=== PATIENT | female | born 1965 | race Caucasian/White ===

== ENCOUNTER → 2017-10-17 10:14 | Outpatient (CLI) | payer OTHER, SELFPAY ==
--- NOTE | 2017-10-17 10:18 | US_ITS ---
STUDY: THYROID ULTRASOUND REASON FOR EXAM: Female, 52 years old. Follow-up nodules. TECHNIQUE: Ultrasound evaluation of the thyroid was performed with real-time and static acharya-scale imaging. COMPARISON: 08/31/2016. FINDINGS: RIGHT LOBE: The right lobe of the thyroid gland measures 5.5 x 2.8 x 2.3 cm. There is a heterogeneous echotexture. There are several poorly defined nodules. Largest 2 measure 1.7 and 2.3 cm. These are relatively stable. LEFT LOBE: The left lobe of the thyroid gland measures 5.0 x 2.0 x 1.6 cm. There is a heterogeneous echotexture. There are several poorly defined nodules. Largest 2 measure 1.1 cm each. These are relatively stable. ISTHMUS: The isthmus measures 4 mm . The regional lymph nodes are normal. US/Thyroid IMPRESSION: Stable probable multinodular goiter. Electronically Signed: Shine Sawyer MD at 17:01 EST , Service support ,
== END ==
PROVIDERS: Family Provider Internal Medicine; PCP Internal Medicine; Visit Provider Internal Medicine
DX: E04.2 Nontoxic multinodular goiter (principal)
CPT/HCPCS: 76536

== ENCOUNTER → 2018-02-19 06:53 | Outpatient (CLI) | payer OTHER, SELFPAY ==
--- NOTE | 2018-02-19 06:56 | CT_ITS ---
STUDY: CT ABDOMEN AND PELVIS WITH CONTRAST REASON FOR EXAM: Female, 52 years old. Few month history of left lower quadrant pain with diarrhea and constipation. RADIATION DOSAGE (If Supplied By Facility): CTDIvol = ( 20.04 ) mGy, DLP = ( 1315.22 ) mGycm TECHNIQUE: Transaxial images were obtained from the dome of the diaphragm to the symphysis pubis with oral contrast. 100ml ml of Isovue 300 contrast was administered. Sagittal and coronal images were reconstructed. Individualized dose optimization techniques were used for this CT. COMPARISON: Comparison is made with prior study dated November 30, 2013. FINDINGS: The visualized lung bases are unremarkable. The visualized portions of the heart are within normal limits. There is decreased attenuation of the liver consistent with steatosis. The patient is status post cholecystectomy. Normal spleen. Normal pancreas. Normal bilateral adrenal glands. Normal right kidney. Stable deformity of the posterior medial aspect of the upper pole of the left kidney in keeping with history of prior localized resection. Normal visualized stomach. Normal small intestine. There are multiple colonic diverticula consistent with diverticulosis. The appendix is visualized and appears normal. Normal abdominal aorta. Normal inferior vena cava. There is borderline retroperitoneal lymphadenopathy with enlarged nodes no greater than 10mm in the short axis diameter. Normal urinary bladder. There is absence of the uterus consistent with a prior hysterectomy. Normal abdominal wall. Normal osseous structures. CT/Abdomen/Pelvis WITH Contrast IMPRESSION: Fatty infiltration of the liver. No acute abnormality is seen. Electronically Signed: Jono Dumont MD at 10:35 EDT Tel [phone], Service support ,
== END ==
PROVIDERS: Family Provider Internal Medicine; PCP Internal Medicine; Visit Provider Internal Medicine
DX: R10.32 Left lower quadrant pain (principal)
CPT/HCPCS: 74177; Q9967

== ENCOUNTER → 2018-03-06 14:26 | Outpatient (CLI) | payer OTHER, SELFPAY ==
--- NOTE | 2018-03-06 14:28 | VDLE_ITS ---
Reason For Study: LEG SWELLING RIGHT LEFT GSV is normal. CFV is compressible, spontaneous, phasic, CFV is compressible, spontaneous, phasic, competent, and demonstrates normal competent and demonstrates normal augmentation. augmentation. FV is compressible, spontaneous, phasic, competent and demonstrates normal augmentation. POP V is compressible, spontaneous, phasic, competent and demonstrates normal augmentation. T/P Trunk is compressible. PTV is compressible. RT PerV is compressible. Procedure Exam performed in department. A preliminary report was called and/or faxed to Dr. Morales. Interpretation Summary Deep veins of the right lower extremity are patent and compressible segmentally. There is no evidence of right lower extremity deep vein thrombosis. Valvular competence appears intact within the proximal deep venous system on the right . The right greater saphenous vein appears patent and compressible segmentally. Ordering Physician: Marcelle Morales Referring Physician: Marcelle Morales Performed By: Padmini Jasso RVT
== END ==
PROVIDERS: Family Provider Internal Medicine; PCP Internal Medicine; Visit Provider Internal Medicine
DX: M79.9 Soft tissue disorder, unspecified (principal)
CPT/HCPCS: 93971

== ENCOUNTER → 2018-03-10 08:01 | Outpatient (CLI) | payer OTHER, SELFPAY ==
--- NOTE | 2018-03-10 08:11 | MRI_ITS ---
STUDY: MRI LOWER EXTREMITY RIGHT TIBIA/FIBULA WITH AND WITHOUT CONTRAST REASON FOR EXAM: Female, 52 years old. Mass TECHNIQUE: Standardized fat and water weighted pulse sequences were obtained in all 3 orthogonal planes, post contrast administration. 10 ml of Gadavist contrast material was administered intravenously for the contrast portion of the examination. COMPARISON: None. FINDINGS: Normal tibia and fibula, without a periosteal, cortical or cancellous marrow abnormality. Normal anterior, lateral, and posterior calf compartments, with normal muscles, crural fascia and intermuscular septa. Normal subcutis adipose space, without subcutis adipose space edema. There is no solid, cystic or lipomatous mass lesion of the subcutis adipose space. There is no abnormal contrast enhancement. MRI/Lower Ext No Joint W/WO Cont IMPRESSION: Intact right calf No soft tissue mass. No abnormal enhancement Electronically Signed: Ge Moffett MD at 9:35 EDT Tel , Service support ,
== END ==
PROVIDERS: Family Provider Internal Medicine; PCP Internal Medicine; Visit Provider Internal Medicine
DX: M79.9 Soft tissue disorder, unspecified (principal)
CPT/HCPCS: 73720; A9585

== ENCOUNTER → 2018-03-28 08:00 | Outpatient (CLI) | payer OTHER, SELFPAY ==
--- NOTE | 2018-03-28 10:21 | NEURO ---
NCS and/or EMG Patient Report Ordering Doctor: Blayne Welsh DATE OF SERVICE: 03/28/18 Is a bilateral lower extremity nerve conduction study and EMG of the right lower extremity performed on this 52-year-old female with paresthesias in her feet bilaterally worse on the right side. She says she is prediabetic with a hemoglobin A1c of 5.1. Bilateral lower extremity sensory and motor nerve conduction studies are performed. The sural sensory responses are intact. Bilateral common peroneal motor distal latencies amplitudes and conduction velocities are intact and the tibial motor distal latencies amplitudes and conduction velocities are intact bilaterally. The tibial and common peroneal F-wave latencies are preserved bilaterally however the tibial H reflex responses reduced. Right lower extremity needle electromyography is performed. Muscles evaluated included the extensor digitorum brevis, abductor halitosis, medial gastrocnemius, anterior tibialis, vastus medialis and vastus lateralis. All muscles demonstrated normal insertional activity with absence of pathologic spontaneous activity. Motor unit potential recruitment pattern and amplitude was normal in all muscles tested. Impression: This is a normal EMG and nerve conduction study of the lower extremities however there is mildly reduced H reflex amplitudes in conjunction with the patient's symptoms this likely represents small fiber neuropathy.
--- NOTE | 2018-03-28 10:25 | NEURO_ITS ---
NCS and/or EMG Patient Report Ordering Doctor: Blayne Welsh DATE OF SERVICE: 03/28/18 Is a bilateral lower extremity nerve conduction study and EMG of the right lower extremity performed on this 52-year-old female with paresthesias in her feet bilaterally worse on the right side. She says she is prediabetic with a hemoglobin A1c of 5.1. Bilateral lower extremity sensory and motor nerve conduction studies are performed. The sural sensory responses are intact. Bilateral common peroneal motor distal latencies amplitudes and conduction velocities are intact and the tibial motor distal latencies amplitudes and conduction velocities are intact bilaterally. The tibial and common peroneal F-wave latencies are preserved bilaterally however the tibial H reflex responses reduced. Right lower extremity needle electromyography is performed. Muscles evaluated included the extensor digitorum brevis, abductor halitosis, medial gastrocnemius , anterior tibialis, vastus medialis and vastus lateralis. All muscles demonstrated normal insertional activity with absence of pathologic spontaneous activity. Motor unit potential recruitment pattern and amplitude was normal in all muscles tested. Impression: This is a normal EMG and nerve conduction study of the lower extremities however there is mildly reduced H reflex amplitudes in conjunction with the patient's symptoms this likely represents small fiber neuropathy.
== END ==
PROVIDERS: Family Provider Internal Medicine; PCP Internal Medicine; Visit Provider Podiatrist
DX: G62.9 Polyneuropathy, unspecified (principal)
CPT/HCPCS: 95886; 95910

== ENCOUNTER → 2018-08-10 16:46 | Outpatient (CLI) | payer OTHER, SELFPAY ==
--- NOTE | 2018-08-10 16:50 | CT_ITS ---
STUDY: CT ABDOMEN AND PELVIS WITHOUT CONTRAST REASON FOR EXAM: Female, 53 years old. Flank pain, left partial nephrectomy, hysterectomy, oophorectomy, cholecystectomy RADIATION DOSAGE (If Supplied By Facility): CTDIvol = ( 12.08 ) mGy, DLP = ( 615.71 ) mGycm TECHNIQUE: Transaxial images were obtained from the dome of the diaphragm to the symphysis pubis without oral contrast, and without intravenous contrast. Sagittal and coronal images were reconstructed. Individualized dose optimization techniques were used for this CT. COMPARISON: CT abdomen and pelvis 02/19/2018 FINDINGS: Body wall soft tissues: No acute process. Osseous structures: No acute process. Inferior chest: No acute process. Hepatobiliary: Normal. Pancreas: No acute process. Spleen: Normal. Adrenal glands: Normal. Urogenital: There is a tiny focus of cortical scar at the posterior margin of the mid polar left kidney. The kidneys are otherwise normal. There is very slight ectasia of the left renal collecting system, slight induration along the bradford of the proximal to mid left ureter. There is a tiny calculus within the distal 3rd of the left ureter measuring approximately 3 mm. Series 2 image 126. Right renal collecting system and ureter normal. Uterus and ovaries absent. No adnexal mass or cyst or cul-de-sac free fluid. Pelvic floor and sidewalls and retroperitoneum: No mass or adenopathy. Vasculature: No acute process. Stomach: No acute process. Small bowel and mesentery: No acute process. Large bowel: Normal appendix. Unremarkable large bowel and rectum. Free fluid or free air: None. CT/Abdomen/Pelvis without Cont IMPRESSION: Acute passage of 3 mm calculus, within the distal 3rd of the left ureter, minimal hydronephrosis. No retained calculi in the kidneys. Electronically Signed: Frank Petty MD at 17:39 EST Tel , Service support ,
== END ==
PROVIDERS: Family Provider Internal Medicine; PCP Internal Medicine; Referring Provider Internal Medicine; Visit Provider Internal Medicine
DX: R10.9 Unspecified abdominal pain (principal)
CPT/HCPCS: 74176

== ENCOUNTER → 2018-08-29 14:59 | Outpatient (CLI) | payer OTHER, SELFPAY ==
--- NOTE | 2018-08-29 15:10 | RAD_ITS ---
STUDY: X-RAY - LUMBAR SPINE REASON FOR EXAM: Female, 53 years old. lumbago with sciatica, right side, also pain in right foot TECHNIQUE: 7 view(s) of the lumbar spine were obtained. COMPARISON: None FINDINGS: Normal lumbar lordosis. There is no demonstrated spondylolisthesis There is multilevel endplate spondylosis of the lumbar vertebrae. There is multi-level degenerative disc disease with multi-level disc space narrowing. The soft tissue structures are unremarkable. RAD/L/S Spine Comp/w Bending Views IMPRESSION: Mild degenerative changes of the spine. Electronically Signed: Aleksandr Delgadillo MD at 8:25 EST Tel , Service support ,
== END ==
PROVIDERS: Family Provider Internal Medicine; PCP Internal Medicine; Referring Provider Psychiatry & Neurology Neurology; Visit Provider Psychiatry & Neurology Neurology
DX: M54.41 Lumbago with sciatica, right side (principal)
CPT/HCPCS: 72114

== ENCOUNTER → 2018-09-06 13:21 | Outpatient (CLI) | payer SELFPAY ==
--- NOTE | 2018-09-06 13:26 | CT_ITS ---
STUDY: CT CHEST WITHOUT CONTRAST REASON FOR EXAM: Female, 53 years old. Hyperlipidemia. Calcium scoring examination. This is a radiological over read examination. RADIATION DOSAGE (If Supplied By Facility): CTDIvol = ( 12.19 ) mGy, DLP = ( 268.17 ) mGycm TECHNIQUE: Transaxial imaging was performed without the administration of intravenous contrast material. Individualized dose optimization techniques were used for this CT. COMPARISON: Comparison is made with prior examination dated November 10, 2015. FINDINGS: Small bilateral axillary lymph nodes. Minimal increased markings at the lung bases suggestive of dependent basilar atelectasis. There is a 3.2 mm noncalcified nodule in the superior medial segment of the right lower lobe as seen on axial image #15. This is unchanged from prior examination. There is no demonstrated pleural abnormality. Normal heart and pericardium. Normal mediastinum. Normal hilar regions. Normal unenhanced pulmonary arteries. Normal aorta arch and descending thoracic aorta. There are degenerative changes of the thoracic spine. There is no demonstrated abnormality of the visualized upper abdomen. CT/Limited Chest CT w/CCTA IMPRESSION: No acute abnormality is seen. Electronically Signed: Jono Dumont MD at 13:06 EST Tel [phone], Service support ,
[2018-09-06 13:38] VITALS: BP 97/52; PULSE 45; RESP 18; BMI 30.2
--- NOTE | 2018-09-06 17:08 | CA.SCORE ---
Calcium Scoring Date of Study:: 09/06/18 Coronary Calcium Scoring: Coronary calcium scoring. High-resolution computed tomographic imaging of the chest was performed on 09/06/2018 with particular attention paid to the coronary arteries. Images from the examination were analyzed for the presence and extent of coronary artery calcification using the coronary calcium quantification software. The patient tolerated the procedure well and there were no complications. The results of the coronary calcification analysis are provided below. Coronary artery score. Left main score 0. Left anterior descending artery score 0. Left circumflex artery score 0. Right coronary artery score 0. Total Agagston score 0. Based on the above calcium scoring there is no identifiable atherosclerotic plaque noted and there is very low cardiovascular disease risk suggested.
--- OUTSIDE RECORDS SUMMARY | 2018-11-11 07:37 | XMS RPT_ITS | Continuity of Care Document ---
:1965 Author Organization [facility] Address [address] [facility] [address] [place] [address] Phone Care Team Providers Name Role Phone Marcelle Daley DO Unavailable Dr. Blayne Welsh Unavailable Devorah ALFARO MD , Richar Cruz Unavailable Dr. Alannah Marina Unavailable Brittany Hicks Unavailable Fuentes Del Toro MD Unavailable Dr. Harjinder Cifuentes Unavailable Dr. Mike Borrego MD Unavailable Anderson DÍAZ, Kavitha Rush Unavailable Rafal Yun MD Unavailable Brian Cain Unavailable Sara Henry Unavailable Unavailable Melania Salcedo Unavailable Unavailable Marta Metcalf Unavailable Unavailable Unavailable Unavailable Problems Name Dates Details Abdominal pain (R10.9, 789.00) Status: Active Abdominal pain, acute, right upper quadrant (R10.11, 789.01) Status: Active Abdominal pain, left lower quadrant (R10.32, 789.04) Status: Active Abdominal pain, lower (R10.30, 789.09) Status: Active Abdominal pain, LUQ (R10.12, 789.02) Comments: geoing to see urology and get ct of abd - so she willhave them check this are too but is better Status: Active Abnormal blood chemistry (R79.9, 790.6) Status: Active Abnormal lung sounds (R09.89, 786.7) Status: Active Abnormal renal ultrasound (R93.429, 793.5) Status: Active Acquired polyneuropathy (G62.9, 356.9) Status: Active Acute bronchitis (J20.9, 466.0) Status: Active Acute foot pain, right (M79.671, 729.5) Comments: better Status: Active Acute hyperglycemia (R73.9, 790.29) Status: Active Acute maxillary sinusitis, recurrence not specified (J01.00, 461.0) Status: Active Acute otitis media, right (H66.91, 382.9) Comments: take sudafed watch bp Status: Active Acute pain of left shoulder (M25.512, 719.41) Comments: take celebrex daily and call with update on monday Status: Active ACUTE PHARYNGITIS (462.) (J02.9, 462) Status: Active Acute sinusitis, unspecified (J01.90, 461.9) Status: Active Allergic otitis media of right ear, unspecified chronicity (H65.91, 381.4) Status: Active Blurred vision (H53.8, 368.8) Comments: rt Status: Active BMI 31.0-31.9,adult (Z68.31, V85.31) Status: Active BMI 35.0-35.9,adult (Z68.35, V85.35) Status: Active BMI 38.0-38.9,adult (Z68.38, V85.38) Status: Active BMI 39.0-39.9,adult (Z68.39, V85.39) Status: Active Bronchitis, acute (J20.9, 466.0) Status: Active Candidiasis (B37.9, 112.9) Status: Active Chronic nonintractable headache, unspecified headache type (R51, 784.0) Comments: keep working on gettingbp down- Status: Active Constipation (K59.00, 564.00) Comments: alternating with diarrhea add probiotic Status: Active Cough (R05, 786.2) Status: Active Current nonsmoker (Z78.9, V49.89) Status: Active Deliveries (Parity) Comments: 3. Status: Active Diverticulosis of colon (K57.30, 562.10) Comments: eat more fiber Status: Active Dizziness (R42, 780.4) Status: Active Drug side effects (T88.7XXA, 995.20) Comments: think the dreaming seems associated with gabapentin so will try to lower dose Status: Active Elevated liver enzymes (R74.8, 790.5) Comments: known fatty liver Status: Active Encounter for hepatitis C virus screening test for high risk patient (Z11.59, V73.89) Status: Active Encounter for screening mammogram for breast cancer (Renamed from Encounter for screening mammogram for malignant neoplasm of breast) (Z12.31, V76.12) Comments: after may 26 Status: Active Encounter for screening mammogram for breast cancer (Renamed from Encounter for screening mammogram for malignant neoplasm of breast) (Z12.31, V76.12) Status: Active Eustachian tube dysfunction (Renamed from Dysfunction of eustachian tube) (H69.80, 381.81) Status: Active Eye twitch (G24.5, 333.81) Comments: rt Status: Active Fatigue (R53.83, 780.79) Status: Active Fatty liver (K76.0, 571.8) Status: Active Gallstone (574.20) Status: Active Gastro-esophageal reflux disease without esophagitis (K21.9, 530.81) Comments: chronic stable-continue present regimen Status: Active H/O partial nephrectomy (V15.29) Comments: left 2012 per [facility], non cancer per [facility] per [place] Status: Active Hair loss (L65.9, 704.00) Status: Active Hepatitis B vaccination not up to date (Z78.9, V49.89) Comments: discussed with occupation and fatty liver, needs Hep B immunizedNo immunity to Hep B, was in process of getting series but was interuppted Status: Active Hiatal hernia (K44.9, 553.3) Comments: avoid caffeine Status: Active Hip pain, left (M25.552, 719.45) Status: Active Hypertension, benign (I10, 401.1) Status: Active Impaired Fasting Glucose (R73.01, 790.21) Status: Active Low blood pressure reading (R03.1, 796.3) Comments: due to weight loss - adjust meds Status: Active Lymphadenopathy (R59.1, 785.6) Status: Active Lymphadenopathy, supraclavicular (R59.0, 785.6) Comments: ct negative montior as i dont feel mass now Status: Active [facility] EXAM Comments: ekg showed normal sinus rhythym, horizontal axis, no acute st/t wave changes Status: Active [facility] Wellness Physical Status: Active Mixed hyperlipidemia (E78.2, 272.2) Status: Active Mobley's neuroma, 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, 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) Status: Active Multiple thyroid nodules (E04.2, 241.1) Status: Active Need for prophylactic vaccination and inoculation against influenza (Renamed from Need for immunization against influenza) (Z23, V04.81) Status: Active Need for prophylactic vaccination and inoculation against influenza (Renamed from Need for immunization against influenza) (Z23, V04.81) Status: Active Need for prophylactic vaccination and inoculation against influenza (Renamed from Need for immunization against influenza) (Z23, V04.81) Status: Active NEED FOR PROPHYLACTIC VACCINATION AND INOCULATION AGAINST INFLUENZA (V04.81) (Renamed from Need for prophylactic vaccination and inoculation against influenza) (Z23, V04.81) Status: Active Nonsmoker (Z78.9, V49.89) Status: Active Nonsmoker (Z78.9, V49.89) Status: Active Obesity, unspecified (E66.9, 278.00) Status: Active Otitis media, serous, acute, without rupture, left (H65.02, 381.01) Status: Active Pain of left side of body (R52, 780.96) Comments: slight tenderness llq Status: Active Postmenopausal (Renamed from Postmenopausal status) (Z78.0, V49.81) Comments: without estrogen Status: Active Pregnancies () Comments: 3. 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 Status: Active Right acute serous otitis media, recurrence not specified (H65.01, 381.01) Status: Active Rosacea (L71.9, 695.3) Status: Active SCREENING FOR HYPERLIPIDEMIA (Renamed from Encounter for screening for lipoid disorders) (Z13.220, V77.91) Status: Active Screening for rubella (Z11.59, V73.3) Status: Active Soft tissue mass (M79.9, 729.90) Status: Active Thyromegaly (E04.9, 240.9) Status: Active Unspecified Diagnosis Status: Active Unspecified Diagnosis Status: Active Upper respiratory infection (J06.9, 465.9) Status: Active Upper respiratory infection (J06.9, 465.9) Status: Active UTI (lower urinary tract infection) (N39.0, 599.0) Status: Active Vitamin B12 deficiency (E53.8, 266.2) Comments: chronic stable-continue present regimen Status: Active Vitamin D deficiency (E55.9, 268.9) Comments: chronic stable-continue present regimen Status: Active Wheezing (R06.2, 786.07) Status: Active Medications Name Dates Details ALIGN, 4MG (Oral Capsule) 1 Capsule take 2 hours after one of the antibiotic dose for 0 days Quantity: 30 {Capsule} Refills: 0 Ordered:15-May-2015 Melania Salcedo Start : 21-Apr-2015 Active Allergy Shots 1 injection weekly Active Comments:Dr. Herman STEINERHC, 25MG (Rectal Suppository) 1 Suppository every 8 hours for 0 days Quantity: 1 {Packet(s)} Refills: 1 Ordered:23-Nov-2015 Fast DO, Marcelle AFast DO, Marcelle A Start : 23-Nov-2015 Active CeleBREX 100 MG Oral Capsule 1 (one) Capsule Capsule daily prn for 90 days Quantity: 90 {Capsule} Refills: 1 Ordered:09-Apr-2018 Sara Henry Start : 09-Apr-2018 Active Gabapentin 100 MG Oral Capsule 1 (one) Capsule Capsule tid for 0 days Quantity: 90 {Capsule} Refills: 2 Ordered:20-Jul-2018 Fast DO, Marcelle AFast DO, Marcelle A Start : 20-Jul-2018 Active Losartan Potassium 25 MG Oral Tablet 1 (one) Tablet qd for 90 days Quantity: 90 {Tablet} Refills: 3 Ordered:27-Jul-2018 DO, Marcelle AFast DO, Marcelle A Start : 27-Jul-2018 Active Losartan Potassium 25 MG Oral Tablet 1 (one) Tablet qd for 0 days Quantity: 30 {Tablet} Refills: 0 Ordered:27-Jul-2018 DO, Marcelle AFast DO, Marcelle A Start : 27-Jul-2018 Active Nasacort Allergy 24HR 55 MCG/ACT Nasal Aerosol 1 spray each nostril daily (55 MCG/ACT) Active Nystatin 033744 UNIT/GM External Powder 1 (one) Powder qd for 0 days Quantity: 1 {Bottle} Refills: 1 Ordered:30-Apr-2018 , Marcelle AFast DO, Marcelle A Start : 30-Apr-2018 Active ProAir HFA 108 (90 Base) MCG/ACT Inhalation Aerosol Solution 2 (two) Aerosol Soln puffs q 6 hours prn for 0 days Quantity: 1 {Inhaler} Refills: 1 Ordered:21-Jul-2017 DO, Marcelle AFast DO, Marcelle A Start : 21-Jul-2017 Active Rosuvastatin Calcium 10 MG Oral Tablet 1/2 Tablet qeve for 0 days Quantity: 90 {Tablet} Refills: 3 Ordered:07-May-2018 DO, Marcelle AFast DO, Marcelle A Start : 07-May-2018 Active Rosuvastatin Calcium 10 MG Oral Tablet 1/2 Tablet qeve for 0 days Quantity: 30 {Tablet} Refills: 3 Ordered:07-May-2018 Fast DO, Marcelle AFast DO, Marcelle A Start : 07-May-2018 Active Vitamin D3 2000 UNIT Oral Tablet 2 (two) Tablet Tablet qd for 0 days Quantity: 60 {Tablet} Refills: 3 Ordered:23-Dec-2016 Melania Salcedo Start : 06-Dec-2016 Active Augmentin 875-125 MG Oral Tablet 1 Tablet bid for 14 days Quantity: 28 {Tablet} Refills: 0 Ordered:05-May-2017 Andrew DOMarcelle DO, Debra A Start : 05-May-2017 End : 19-May-2017 Inactive BIAXIN XL PAC, 500MG (Oral Tablet Extended Release 24 Hour) 2 (two) Tablet ER 24HR daily for 10 days Quantity: 20 {Tablet_ER_24HR} Refills: 0 Ordered:16-Jul-2013 Melania Salcedo Start : 16-Jul-2013 End : 26-Jul-2013 Inactive CEFDINIR, 300MG (Oral Capsule) 1 (one) Capsule bid for 7 days Quantity: 14 {Capsule} Refills: 0 Ordered:18-May-2015 Vivian Washington CNP Start : 18-May-2015 End : 25-May-2015 Inactive Cheratussin AC 100-10 MG/5ML Oral Syrup 10 Milliliter q 6-8 hrs prn for 0 days Quantity: 150 {Milliliter} Refills: 0 Ordered:16-Oct-2017 Sara Henry Start : 21-Jul-2017 End : 16-Oct-2017 Inactive Comments:one hundred fifty CIPRO, 500MG (Oral Tablet) 1 (one) Tablet bid for 7 days Quantity: 14 {Tablet} Refills: 0 Ordered:21-Apr-2015 Vivian Washington CNP Start : 21-Apr-2015 End : 28-Apr-2015 Inactive CLARITIN, 10MG (Oral Tablet) 1 Tablet daily for 30 days Refills: 0 Ordered:20-Jul-2012 Andrew MATHISMarcelle DO, Debra A Start : 20-Jul-2012 End : 19-Aug-2012 Inactive Contrave 8-90 MG Oral Tablet Extended Release 12 Hour 4 Tablet qd for 0 days Quantity: 120 {Tablet} Refills: 1 Ordered:16-Oct-2017 Sara Henry Start : 20-Jun-2017 End : 16-Oct-2017 Inactive Doxycycline Hyclate 100 MG Oral Capsule 1 (one) Capsule bid for 0 days Quantity: 20 {Capsule} Refills: 0 Ordered:16-Oct-2017 Andrew DOTla Keysha DO Marcelle A Start : 21-Jul-2017 End : 16-Oct-2017 Inactive Estrogen-Methultestos 1 tab qd Inactive KETOCONAZOLE, 2% (External Shampoo) apply to scalp prn (2 %) Inactive KLARON, 10% (External Lotion) uad bid (10 %) Inactive MELOXICAM, 7.5MG (Oral Tablet) 1 Tablet daily for 14 days Quantity: 30 {Tablet} Refills: 0 Ordered:31-May-2013 Vivian Washington CNP Start : 31-May-2013 End : 14-Jun-2013 Inactive Comments:Ok to dispense 30 take x 14 days, take with food ORACEA, 40MG (Oral Capsule Delayed Release) 1 cap qd (40 MG) Inactive PREDNISONE, 10MG (Oral Tablet) 1 Tablet bid for 3 days Quantity: 6 {Tablet} Refills: 0 Ordered:16-Jul-2013 Vivian Washington CNP Start : 16-Jul-2013 End : 19-Jul-2013 Inactive Comments:take wtih food PREDNISONE, 20MG (Oral Tablet) 1 (one) Tablet bid for 2 days for 2 days Quantity: 4 {Tablet} Refills: 0 Ordered:15-Jan-2015 Christy MATHIS Jing Start : 15-Jan-2015 End : 17-Jan-2015 Inactive PROMISEB (External Cream) uad bid Inactive TAMIFLU, 75MG (Oral Capsule) 1 Capsule Bid for 5 days Quantity: 10 {Capsule} Refills: 0 Ordered:21-Sep-2012 Vivian Washington CNP Start : 21-Sep-2012 End : 26-Sep-2012 Inactive VENTOLIN HFA, 108 (90 Base)MCG/ACT (Inhalation Aerosol Solution) 2 Aerosol Soln every six hours, as needed for 0 days Quantity: 1 {Aerosol_Soln} Refills: 0 Ordered:22-Nov-2013 George Oscar LPN Start : 16-Jul-2013 End : 22-Nov-2013 Inactive Comments:Medication taken as needed. Vitamin B-12 500 MCG Sublingual Tablet Sublingual 1 (one) Tab Sublingual Tab Sublingual daily for 30 days Quantity: 30 {Tablet} Refills: 0 Ordered:18-Jan-2017 Marcelle Daley DO, DO, Debra A Start : 07-Dec-2016 End : 06-Jan-2017 Inactive VITAMIN B12, 100MCG (Oral Tablet) 1 daily (100 MCG) Inactive Atorvastatin Calcium 10 MG Oral Tablet 1 (one) Tablet qd in renzo for 90 days Quantity: 90 {Tablet} Refills: 3 Ordered:16-Oct-2017 Fast DO, Marcelle AFast DO, Marcelle A Start : 16-Oct-2017 End : 16-Oct-2017 Discontinued AZELASTINE HCL, 0.05% (Ophthalmic Solution) 1 (one) Solution Solution bid for 0 days Quantity: 1 {Bottle} Refills: 0 Ordered:21-Apr-2015 Slarb TAR DIST[employer]BUTOR OPERATOR, Laura Start : 06-Dec-2013 End : 21-Apr-2015 Discontinued Ergocalciferol 50952 UNIT Oral Capsule 1 (one) Capsule Capsule q week for 0 days Quantity: 12 {Capsule} Refills: 3 Ordered:08-Mar-2017 Melania Salcedo Start : 04-Nov-2014 End : 08-Mar-2017 Discontinued Ergocalciferol 86683 UNIT Oral Capsule 1 (one) Capsule Capsule q week for 0 days Quantity: 12 {Capsule} Refills: 2 Ordered:08-Mar-2017 Melania Salcedo Start : 04-Nov-2014 End : 08-Mar-2017 Discontinued Levaquin 500 MG Oral Tablet 1 (one) Tablet qd for 0 days Quantity: 10 {Tablet} Refills: 0 Ordered:07-Oct-2016 Melania Salcedo Start : 23-Sep-2016 End : 07-Oct-2016 Discontinued LOSARTAN POTASSIUM-HCTZ, 100-25MG (Oral Tablet) 1 tab Tablet qd for 30 days Quantity: 30 {Tablet} Refills: 0 Ordered:21-Apr-2015 Slarb TAR DISTRIBUTOR OPERATOR, Laura Start : 09-Jan-2014 End : 21-Apr-2015 Discontinued LOSARTAN POTASSIUM-HCTZ, 100-25MG (Oral Tablet) 1 tab Tablet qd for 90 days Quantity: 90 {Tablet} Refills: 1 Ordered:21-Apr-2015 Slarb TAR DISTRIBUTOR OPERATOR, Laura Start : 09-Jan-2014 End : 21-Apr-2015 Discontinued MELOXICAM, 7.5MG (Oral Tablet) 1 qd (7.5 MG) End : 02-Sep-2014 Discontinued Nasonex 50 MCG/ACT Nasal Suspension 2 (two) Puff(s) daily for 0 days Quantity: 1 {Bottle} Refills: 0 Ordered:06-Dec-2016 Melania Salcedo Start : 31-Aug-2015 End : 06-Dec-2016 Discontinued POTASSIUM CHLORIDE ER, 10MEQ (Oral Capsule Extended Release) 2 (two) Capsule ER qd for 0 days Quantity: 180 {Capsule_ER} Refills: 3 Ordered:21-Apr-2015 Laura Benito LPN Start : 07-Sep-2012 End : 21-Apr-2015 Discontinued PROVENTIL HFA, 108 (90 Base)MCG/ACT (Inhalation Aerosol Solution) 2 (two) Aerosol Soln q 6 hr prn for 0 days Quantity: 1 {Inhaler} Refills: 0 Ordered:21-Apr-2015 Laura Benito LPN Start : 19-Jan-2015 End : 21-Apr-2015 Discontinued WELCHOL, 625MG (Oral Tablet) 3 (three) Tablet bid for 90 days Quantity: 540 {Tablet} Refills: 3 Ordered:23-Sep-2014 Fast DO, Marcelle AFast DO, Marcelle A Start : 23-Sep-2014 End : 23-Sep-2014 Discontinued ZITHROMAX Z-MEREDITH, 250MG (Oral Tablet) tad Tablet Tablet qd for 0 days Quantity: 1 {Package} Refills: 0 Ordered:21-Apr-2015 Laura Benito LPN Start : 15-Jan-2015 End : 21-Apr-2015 Discontinued ZITHROMAX Z-MEREDITH, 250MG (Oral Tablet) tad Tablet qd for 0 days Quantity: 1 {Packet} Refills: 0 Ordered:02-Jul-2014 Geogre Oscar LPN Start : 19-Jun-2014 End : 02-Jul-2014 Discontinued ZyrTEC Allergy 10 MG Oral Capsule 1 Capsule daily for 0 days Quantity: 30 {Capsule} Refills: 0 Ordered:08-Mar-2017 Melania Salcedo Start : 06-Mar-2013 End : 08-Mar-2017 Discontinued Allergies and Adverse Reactions Name Dates Details Paxil *ANTIDEPRESSANTS* (Allergy) Reaction: Diarrhea Status: Active Past Medical History Name Dates Details Abdominal pain, acute, generalized (R10.84, 789.07) Status: Inactive as of 09-Oct-2012 Allergic rhinitis (J30.9, 477.9) Status: Inactive as of 16-Oct-2017 ALLERGIC RHINITIS DUE TO OTHER ALLERGEN (J30.89, 477.8) Status: Inactive as of 16-Oct-2017 BMI 33.0-33.9,adult (Z68.33, V85.33) Status: Inactive as of 05-May-2017 BMI 35.0-35.9,adult (Z68.35, V85.35) Status: Inactive as of 27-Jul-2018 BMI 36.0-36.9,adult (Z68.36, V85.36) Status: Inactive as of 05-May-2017 BMI 37.0-37.9, adult (Z68.37, V85.37) Status: Inactive as of 16-Oct-2017 BMI 38.0-38.9,adult (Z68.38, V85.38) Status: Inactive as of 05-May-2017 BMI 38.0-38.9,adult (Z68.38, V85.38) Status: Inactive as of 06-Mar-2018 BMI 39.0-39.9,adult (Z68.39, V85.39) Status: Inactive as of 16-Oct-2017 Bronchitis (J40, 490) Status: Resolved as of 23-Jul-2013 Chest pain (R07.9, 786.59) Status: Resolved as of 09-Oct-2012 Chronic left shoulder pain (M25.512, 719.41) Status: Inactive as of 31-Jan-2018 Conjunctivitis, allergic (H10.10, 372.14) Comments: left eye Status: Resolved as of 06-Feb-2015 Cough (R05, 786.2) Status: Inactive as of 16-Oct-2017 Cough (R05, 786.2) Comments: take antihistamin daily call cough not better Status: Resolved as of 23-Jul-2013 Dysphagia, unspecified dysphagia (787.20) Comments: better Status: Inactive as of 16-Oct-2017 Fever and chills (R50.9, 780.60) Status: Resolved as of 09-Oct-2012 Hemorrhoids, unspecified hemorrhoid type (K64.9, 455.6) Status: Inactive as of 31-Jan-2018 History of pneumonia (Z87.01, V12.61) Comments: give pneumovax next appt Status: Inactive as of 16-Oct-2017 Influenza A (H1N1) (J10.1, 488.12) Comments: Positive A also got flu shot Status: Inactive as of 04-Jul-2013 Joint pain (M25.50, 719.40) Status: Inactive as of 16-Oct-2017 kidney mass- possible renal cell carcinoma Status: Inactive as of 04-Jul-2013 Left knee pain (M25.562, 719.46) Status: Inactive as of 16-Oct-2017 Right foot pain (M79.671, 729.5) Comments: already has appt with him Status: Inactive as of 31-Jan-2018 Right leg swelling (M79.89, 729.81) Status: Inactive as of 16-Oct-2017 Stress (F43.9, V62.89) Status: Resolved as of 06-Feb-2015 Tinnitus of right ear (H93.11, 388.30) Comments: think from otitis if not better will need workup Status: Inactive as of 31-Jan-2018 Unspecified bacterial pneumonia (J15.9, 482.9) Status: Resolved as of 06-Feb-2015 Vaccine for ulmbmcrxes-aeockwi-ncekppnlu with poliomyelitis (Z23, V06.3) Status: Inactive as of 20-Jul-2012 Wheezing (Renamed from Asthmatic breathing) (R06.2, 786.07) Status: Resolved as of 06-Feb-2015 Procedures Procedure Dates Details Cholecystectomy Completed Comments: cebul Colonoscopy Completed Comments: Esau -- 07.16.13 Hysterectomy; Total Completed Comments: 2006- no cancer - heavy periods thyroid biopsy 2016-neg Completed Tonsillectomy Completed tonsillectomy/tympanosty Completed Date Value Details 28-Mar-2018 NCS and/or EMG Patient Result: Comments: See Note; NOTES: [facility] Pulmonary Services/Neurology [address] [place] [address] MR#: [id number] Acct: [id number] Name: AMY VALDOVINOS Rep #: [id number] : 0 1965 52 From: Adebayo Canchola MD Referring Dr: Blayne Welsh DPM Status: REG CLI Ordering Dr: Date: Location: PS Sex: F C NCS and/or EMG Patient Report Ordering Doctor: Blayen Welsh DATE OF SERVICE: 03/28/18 Is a bilateral lower extremity nerve conduction study and EMG of the right lower extremity performed on this 52-year-old female with paresthesias in her feet bilaterally worse on e right side. She says she is prediabetic with a hemoglobin A1c of 5.1. Bilateral lower extremity sensory and motor nerve conduction studies are performed. The sural sensory responses are intact. Bilat eral common peroneal motor distal latencies amplitudes and conduction velocities are intact and the tibial motor distal latencies amplitudes and conduction velocities are intact bilaterally. The tibial and common peroneal F-wave latencies are preserved bilaterally however the tibial H reflex responses reduced. Right lower extremity needle electromyography is performed. Muscles evaluated included the extensor digitorum brevis, abductor halitosis, medial gastrocnemius, anterior tibialis, vastus medialis and vastus lateralis. All muscles demonstrated normal insertional activity with absence of patholo gic spontaneous activity. Motor unit potential recruitment pattern and amplitude was normal in all muscles tested. Impression: This is a normal EMG and nerve conduction study of the lower extremities h owever there is mildly reduced H reflex amplitudes in conjunction with the patient's symptoms this likely represents small fiber neuropathy. 03/28/18 1244 <Electronically signed by Adebayo guerrero MD> Date Adebayo Canchola MD CC: Marcelle Daley DO; Blayne Welsh DPM; Adebayo Canchola MD Date Dictated: 03/28/18 1021 Date Transcribed: 03/28/18 1021 Water Service Dispatcher: NF Signed 10-Mar-2018 Lower Ext No Joint W/WO Cont Result: Comments: See Note; NOTES: [facility] Imaging Services [address] [place] [id number] Lower Ext No Joint W/WO Cont MR#: [id number] Acct: [id number] Name: AMY VALDOVINOS Rep #: [id number] : 1965 F 52 From: Ge Moffett MD PCP: Marcelle Daley DO Status: REG CLI Study: Lower Ext No Joint W/WO Cont Date of Exam: 03/10/18 Exam# [id number] Ordering Dr: Marcelle Daley DO STUD Y: MRI LOWER EXTREMITY RIGHT TIBIA/FIBULA WITH AND WITHOUT CONTRAST REASON FOR EXAM: Female, 52 years old. Mass TECHNIQUE: Standardized fat and water weighted pulse sequences were obtained in all 3 or thogonal planes, post contrast administration. 10 ml of Gadavist contrast material was administered intravenously for the contrast portion of the examination. COMPARISON: None. FINDINGS: Normal tibia and fibula, without a periosteal, cortical or cancellous marrow abnormality. Normal anterior, lateral, and posterior calf compartments, with normal muscles, crural f ascia and intermuscular septa. Normal subcutis adipose space, without subcutis adipose space edema. There is no solid, cystic or lipomatous mass lesion of the subcutis adipose space. There is no abno rmal contrast enhancement. 0001 MRI/Lower Ext No Joint W/WO Cont IMPRESSION: Intact right calf No soft tissue mass. No abnormal enhancement Electro nically Signed: Ge Moffett MD at 9:35 EDT Tel , Service support , CC: Marcelle Daley DO Water Service Dispatcher: Signed 06-Mar-2018 Venous Duplex Lower Extremity Result: Comments: See Note; NOTES: [facility] Cardiovascular Services [address] [place] [address] Venous Duplex US, Unilateral 03/06/18 1435 MR#: [id number] Acct: [id number] Name: AMY CHOI Rep #: [id number] : 1965 52 From: Jared Hines MD Attending Dr: Marcelle Daley DO Status: REG CLI Ordering Dr: Marcelle Daley DO Date: 03/06/18 Location: [facility] Sex: F C Admitted: [place] son For Study: LEG SWELLING RIGHT LEFT GSV is normal. CFV is compressible, spontaneous, phasic, CFV is compressible, spontaneous, phasic, competent, and demonstrates normal competent and demonstrates n ormal augmentation. augmentation. FV is compressible, spontaneous, phasic, competent and demonstrates normal augmentation. POP V is compressible, spontaneous, phasic, competent and demonstrates normal a ugmentation. T/P Trunk is compressible. PTV is compressible. RT PerV is compressible. Procedure Exam performed in department. A preliminary report was called and/or faxed to Dr. Daley. Interpretation Callejas mmary Deep veins of the right lower extremity are patent and compressible segmentally. There is no evidence of right lower extremity deep vein thrombosis. Valvular competence appears intact within the p roximal deep venous system on the right . The right greater saphenous vein appears patent and compressible segmentally. Ordering Physician: Marcelle Daley Referring Physician: Marcelle Daley Performed By: Padmini Jasso RVT 03/06/18 1623 Date Jared Hines MD CC: Marcelle Daley DO Date Dictated: 03/06/18 1435 Date Transcribed: 03/06/18 1623 Water Service Dispatcher: Signed 19-Feb-2018 Abdomen/Pelvis WITH Contrast Result: Comments: See Note; NOTES: [facility] Imaging Services [address] [place] [address] Abdomen/Pelvis WITH Contrast MR#: [id number] Acct: [id number] Name: AMY VALDOVINOS Rep #: [id number] : 1965 F 52 From: Jono Dumont MD PCP: Marcelle Daley DO Status: REG CLI Study: Abdomen/Pelvis WITH Contrast Date of Exam: 02/19/18 Exam# [id number] Ordering Dr: Marcelle Daley DO S TUDY: CT ABDOMEN AND PELVIS WITH CONTRAST REASON FOR EXAM: Female, 52 years old. Few month history of left lower quadrant pain with diarrhea and constipation. RADIATION DOSAGE (If Supplied By Facility ): CTDIvol = ( 20.04 ) mGy, DLP = ( 1315.22 ) mGycm TECHNIQUE: Transaxial images were obtained from the dome of the diaphragm to the symphysis pubis with oral contrast. 100ml ml of Isovue 300 contrast was administered. Sagittal and coronal images were reconstructed. Individualized dose optimization techniques were used for this CT. COMPARISON: Comparison is made with prior study dated November 30 4. FINDINGS: The visualized lung bases are unremarkable. The visualized portions of the heart are within normal limits. There is decreased attenuation of the liver consistent with steatosis. The patient is status post cholecystectomy. Normal spleen. Normal pancreas. Normal bilateral adrenal glands. Normal right kidney. Stable deformity of the posterior medial as pect of the upper pole of the left kidney in keeping with history of prior localized resection. Normal visualized stomach. Normal small intestine. There are multiple colonic diverticula consistent with diverticulosis. The appendix is visualized and appears normal. Normal abdominal aorta. Normal inferior vena cava. There is borderline retroperitoneal lymphadenopathy with enlarged nodes no greater kendra n 10mm in the short axis diameter. Normal urinary bladder. There is absence of the uterus consistent with a prior hysterectomy. Normal abdominal wall. Normal osseous structures. CT/Abdomen/Pelvis WITH Contrast IMPRESSION: Fatty infiltration of the liver. No acute abnormality is seen. Electronically Signed: Jono Dumont MD at 10:35 EDT Tel [phone], Service support , CC: Marcelle Daley DO Water Service Dispatcher: Signed 17-Oct-2017 Thyroid Result: Comments: See Note; NOTES: [facility] Imaging Services [address] [place] [address] Thyroid MR#: [id number] Acct: [id number] Name: AMY VALDOVINOS Rep #: [id number] : [birth year] F 52 From: Shine Sawyer MD PCP: Marcelle Daley DO Status: REG CLI Study: Thyroid Date of Exam: 10/17/17 Exam# [id number] Ordering Dr: Marcelle Daley DO STUDY: THYROID ULTRASOUND REASON FOR EXAM: Araceli martinez, 52 years old. Follow-up nodules. TECHNIQUE: Ultrasound evaluation of the thyroid was performed with real-time and static acharya-scale imaging. COMPARISON: 08/31/2016. FINDINGS: RIGHT LOBE: The right lobe of the thyroid gland measures 5.5 x 2.8 x 2.3 cm. There is a heterogeneous echotexture. There are several poorly defined nodules. Largest 2 measure 1.7 and 2.3 cm. These are relatively stable. LEFT LOBE: The left lobe of the thyroid gland measures 5.0 x 2.0 x 1.6 cm. There is a heterogeneous echotexture. There are several poorly defined nodules. Largest 2 measure 1.1 cm each. These are relatively stable. ISTHMUS: The isthmus measures 4 mm . The regional lymph nodes are normal. US/Thyroid IMPRES KEVIN: Stable probable multinodular goiter. Electronically Signed: Shine Sawyer MD at 17:01 EST , Service support , CC: Marcelle Daley DO Water Service Dispatcher: Signed 01-Aug-2017 SCREENING MAMM (CAD), BILAT Result: Comments: See Note; NOTES: [facility] Imaging Services [address] [place] [address] SCREENING MAMM (CAD), BILAT MR#: [id number] Acct: [id number] Name: AMY VALDOVINOS Rep #: [id number] : 1965 F 52 From: Jono Dumont MD PCP: Marcelle Daley DO Status: REG CLI Study: SCREENING MAMM (CAD), BILAT Date of Exam: 08/01/17 Exam# [id number] Ordering Dr: Marcelle Daley DO [facility] MOGRAPHY - BILATERAL SCREENING REASON FOR EXAM: Female, 52 years old. Routine annual screening examination. PERTINENT HISTORY: Non-contributory. TECHNIQUE: Digital bilateral breast harriett (3D mammograp hic acquisition) in the CC and MLO projections. 2-D mediolateral oblique (MLO) and craniocaudad (CC) views of both breasts were obtained. CAD: Full Field Digital Mammography with Computer Added Detectio n was performed. COMPARISON: Comparison is made with prior study dated May 26, 2015 and June 09, 2016. FINDINGS: Breast Composition: There are scattered areas of fibroglandular density. There are no dominant masses or suspicious calcifications. Stable bilateral benign appearing axillary lymph nodes. No other significant abnormalities are identified. There has been no significant change since the prior study. HPBI/SCREENING MAMM (CAD), BILAT IMPRESSION: Stable bilateral screening mammogram. Yearly f ollow-up mammogram recommended. (A) ASSESSMENT CATEGORY: BIRADS Category 2: Benign. A letter regarding these results will be sent to the patient by the facility wit hin 30 days. Approximately 10% of breast cancers are not detected by mammography. A normal mammogram should not delay biopsy of a clinically suspicious abnormality. [id number] Electronically Signed: Alam Dumont MD at 15:11 EST Tel [phone], Service support , CC: Marcelle Daley DO Water Service Dispatcher: Signed 01-May-2017 Venous Duplex Lower Extremity Result: Comments: See Note; NOTES: [facility] Cardiovascular Services [address] [place] [address] Venous Duplex US, Unilateral 04/28/17 1357 MR#: [id number] Acct: [id number] Name: AMY CHOI Rep #: [id number] : 1965 51 From: Jared Hines MD Attending Dr: Marcelle Daley DO Status: REG CLI Ordering Dr: Marcelle Daley DO Date: 04/28/17 Location: [facility] Sex: F C Admitted: Mylene son For Study: SWELLING RIGHT LEFT GSV is normal. CFV is compressible, spontaneous, phasic, CFV is compressible, spontaneous, phasic, competent, and demonstrates normal competent and demonstrates mumtaz l augmentation. augmentation. FV is compressible, spontaneous, phasic, competent and demonstrates normal augmentation. POP V is compressible, spontaneous, phasic, competent and demonstrates normal augme ntation. T/P Trunk is compressible. PTV is compressible. RT PerV is compressible. Procedure Exam performed in department. A preliminary report was called and/or faxed to DR DALEY. Interpretation Summary Deep veins of the right lower extremity are patent and compressible segmentally. There is no evidence of right lower extremity deep vein thrombosis. Valvular competence appears intact within the proxim al deep venous system on the right . The right greater saphenous vein appears patent and compressible segmentally. __ Ordering Physician: Marcelle Daley Referring Physician: Marcelle Daley Performed By: Sonia LORI, Sita MURILLO and Student 0 05/01/17 0854 Date Jared Hiens MD CC: Marcelle Daley DO Date Dictated: 04/28/17 1357 Date Transcribed: 05/01/17 0855 Water Service Dispatcher: Signed 28-Apr-2017 Foot min 3 Views Result: Comments: See Note; NOTES: [facility] Imaging Services [address] [place] [address] Foot min 3 Views MR#: [id number] Acct: [id number] Name: AMY VALDOVINOS Rep #: [id number] D OB: 1965 F 51 From: Amarjit Britton DO PCP: Marcelle Daley DO Status: REG CLI Study: Foot min 3 Views Date of Exam: 04/28/17 Exam# [id number] Ordering Dr: Marcelle Daley DO STUDY: X-RAY - RIGHT FOOT CLINICAL : Female, 51 years old. Pain TECHNIQUE: 3 view(s) of the foot. COMPARISON: None. FINDINGS: Normal talus, calcaneus, and tarsal bones. Calcaneal spurring. Normal v isualized subtalar, talonavicular, calcaneocuboid, tarsal and tarsometatarsal articulations. Normal metatarsi. Normal metatarsophalangeal joint of the great toe. Normal tibial and fibular sesamoid bon es. Normal interphalangeal joint of the great toe. Normal phalanges of the great toe. Normal second through fifth metatarsophalangeal joints. Normal interphalangeal joints and phalanges of the lesser t oes. The soft tissue structures are unremarkable. RAD/Foot min 3 Views IMPRESSION: Normal x-ray examination of the foot. Electronically Signed: Amarjit Britton DO at 20:42 EDT Tel [phone], Service support , CC: Marcelle Daley DO Water Service Dispatcher: Signed 28-Apr-2017 Knee 4 or More Views Result: Comments: See Note; NOTES: [facility] Imaging Services [address] [place] [address] Knee 4 or More Views MR#: [id number] Acct: [id number] Name: AMY VALDOVINOS Rep #: [id number] : 1965 F 51 From: Amarjit Britton DO PCP: Marcelle Daley DO Status: REG CLI Study: Knee 4 or More Views Date of Exam: 04/28/17 Exam# [id number] Ordering Dr: Marcelle Daley DO STUDY: X-RAY - RIGHT KNEE REASON FOR EXAM: Female, 51 years old. Pain, swelling TECHNIQUE: 4 view(s) of the knee. COMPARISON: None. FINDINGS: Normal visualized distal femur. Normal visualiz ed proximal tibia and fibula. Normal proximal tibiofibular articulation. Prominent spurring with moderate narrowing at the medial femorotibial compartment. Mild spurring at the lateral femorotibial com partment. Degenerative spurring and narrowing at the patellofemoral articulation. The soft tissue structures are unremarkable. RAD/Knee 4 or Mor e Views IMPRESSION: Degenerative changes of the knee. Electronically Signed: Amarjit Britton DO at 20:31 EDT Tel [phone], Service support , CC: Marcelle Daley DO Water Service Dispatcher: Signed 23-Mar-2017 Liver Result: Comments: See Note; NOTES: [facility] Imaging Services [address] [place] [address] Liver MR#: [id number] Acct: [id number] Name: AMY VALDOVINOS Rep #: [id number] : [birth year] F 51 From: Jono Dumont MD PCP: Marcelle Daley DO Status: REG CLI Study: Liver Date of Exam: 03/23/17 Exam# [id number] Ordering Dr: Marcelle Daley DO STUDY: ABDOMINAL ULTRASOUND - RIGHT UPPER QUADR ANT REASON FOR VISIT: Female, 51 years old. Fatty infiltration of the liver. TECHNIQUE: Ultrasound evaluation of the right upper quadrant was performed with real-time and static acharya-scale imaging. T ECHNICAL QUALITY: Adequate. COMPARISON: None. FINDINGS: Liver: The liver is slightly enlarged and measures 18.1 cm. There is increased echogenicity consistent with fatty infiltration. The bile ducts are within normal limits. There is hepatic color flow. The direction of portal flow is hepatopetal. There is no demonstrated mass lesion. Gallbladder: The patient is status post cholecystectomy. Common Bile Duct (C.B.D.): The common bile duct measures 3.5 mm. Pancreas: Normal size of the head, body and tail of the pancreas. There is normal echogenicity of the laird creas. There is no demonstrated pancreatic mass or cyst. Right Kidney: Normal size of the right kidney. The right kidney measures 12.8 cm x 6.3 cm x 5.3 cm. Normal renal cortex. The right cortex measur es 1.4 cm. There is no demonstrated renal mass or cyst. There is no right hydronephrosis. US/Liver IMPRESSION: Mild hepatomegaly and fatty infilt ration of the liver. Electronically Signed: Jono Dumont MD at 8:50 EDT Tel [phone], Service support , CC: Marcelle Daley DO Water Service Dispatcher: Signed 31-Aug-2016 Thyroid Result: Comments: See Note; NOTES: [facility] Imaging Services [address] [place], [place] [address] [address] Verdana 4d Thyroid MR#: [id number] Acct: [id number] Name: AMY VALDOVINOS Rep #: [id number] : 1965 F 51 From: Amarjit Britton DO PCP: Marcelle Daley DO Status: REG CLI Study: Thyroid Date of Exam: 08/31/16 Exam# [id number] Ordering Dr: Marcelle Daley DO STUDY: THYROID ULTRASOUND REASON FOR EXAM : Female, 51 years old. Thyroid nodules TECHNIQUE: Ultrasound evaluation of the thyroid was performed with real-time and static acharya-scale imaging. COMPARISON: November 10, 2015. FINDINGS: RIGHT LOBE: The right lobe of the thyroid gland measures 5.3 x 2.4 x 2.6 cm. There is a homogeneous echotexture. Mid thyroid solid nodule measuring 1.5 x 1.4 x 0.9 cm. There is a 2.3 x 1.7 x 1.6 cm solid nodule along the posterior aspect of the mid right thyroid region. These nodules are relatively stable. LEFT LOBE: The left lobe of the thyroid gland measures 4.3 x 1.6 x 1.3 cm. There is a homogeneous echotexture. There is a new 1.2 x 1.0 x 1.0 cm mid thyroid solid nodule and a smaller relatively stable 7 x 7 x 6 mm mid thyroid solid nodule. ISTHMUS: The isthmus measures 4 mm . The regional lymph nodes are normal. US/Thyroid IMPRESSION: Bilateral relatively stable solid nodules of the thyroid. New additional left thyroid nodule. Electronically Signed: Amarjit Britton DO at 23:35 EST Tel [phone], Service support [phone], CC: Marcelle Daley DO Water Service Dispatcher: Signed 09-Jun-2016 Bilat Scrn Digital AND CAD Result: Comments: See Note; NOTES: [facility] Imaging Services [address] [place] [address] Verdana 4d Bilat Scrn Digital AND CAD MR#: [id number] Acct: [id number] Name: AMY VALDOVINOS Rep #: [id number] : 1965 F 51 From: Jono Dumont MD PCP: Marcelle Daley DO Status: REG CLI Study: Bilat Scrn Digital AND CAD Date of Exam: 06/09/16 Exam# [id number] Ordering Dr: Tl Daley DO MAMMOGRAPHY - BILATERAL SCREENING REASON FOR EXAM: Female, 51 years old. Routine annual screening examination. PERTINENT HISTORY: Non-contributory. TECHNIQUE: Digital bilateral breast harriett (3 D mammographic acquisition) in the CC and MLO projections. 2-D mediolateral oblique (MLO) and craniocaudad (CC) views of both breasts were obtained. CAD: Full Field Digital Mammography with Computer Add ed Detection was performed. COMPARISON: Comparison is made with prior study dated May 26, 2015. FINDINGS: Breast Composition: There are scattered areas of fibrog landular density. There are no dominant masses or suspicious calcifications. No other significant abnormalities are identified. There has been no significant change since the prior study. HPBI/Bilat Scrn Digital AND CAD IMPRESSION: Stable bilateral screening mammogram. Yearly follow-up mammogram recommended. (A) ASSESSMENT CATEGORY: BIRADS Category 1: Negative. A letter regarding these results will be sent to the patient by the facility within 30 days. Approximately 10% of breast cancers are not detect ed by mammography. A normal mammogram should not delay biopsy of a clinically suspicious abnormality. [id number] Electronically Signed: Jono Dumont MD at 15:05 EDT Tel [phone], Servi ce support [phone], CC: Marcelle Daley DO Water Service Dispatcher: Signed 09-Jun-2016 Dexa Bone Density Study (HP) Result: Comments: See Note; NOTES: [facility] Imaging Services [address] [place] [address] Verdana 4d Dexa Bone Density Study (HP) MR#: [id number] Acct: [id number] Name: AMY VALDOVINOS Rep #: [id number] : 1965 F 51 From: Jono Dumont MD PCP: Marcelle Daley DO Status: REG CLI Study: Dexa Bone Density Study () Date of Exam: 06/09/16 Exam# [id number] Ordering Dr: Marcelle Daley DO STUDY: DUAL ENERGY X-RAY ABSORPTIOMETRY / DXA REASON FOR EXAM: Female, 51 years old. Early menopause. TECHNIQUE: Bone Mineral Density (BMD) measurements of lumbar spine and bilateral hips were obtained. COMPARISON: None. FINDINGS: Lumbar Spine (L1-L4): g/cm2 (1.270) / T-score (0.8) / Z-score (1.2) Findings are suggestive of normal bone density with a low fracture risk. Left Femur Total: g/cm2 (1.139) / T-score (1.0) / Z-score (1.5) Left Femoral Neck: g/cm2 (1.084) / T-score (0.3) / Z-score (1.2) Right Femur Total: g/cm2 (1.101) / T-score (0.7) / Z-score (1.2) Right Femoral Neck: g/cm2 (1.014) / T-score (-0.2) / Z-score (0.7) HPBD/Dexa Bone Density Study () IMPRESSION: The patient is c onsidered normal as outlined below according to World Carlos Organization (WHO) criteria with a low fracture risk. Reference Information: The T-score is the number o f standard deviations above or below the standard which is normal for young adults at their peak bone mineral density. The World Health Organization (WHO) interprets the T-scores as follows: Above -1 N ormal bone density Between -1 and -2.5 Osteopenia Equal to / or below -2.5 Osteoporosis As a practical clinical guideline, osteopenia may be graded as follows: Mild - 1 through -1.5 Moderate -1.6 throug h -2.0 Severe -2.1 through -2.4 The Z-score is the number of standard deviations above or below age-matched controls. A Z-score of less than -1.5 would be considered abnormal. References: 1. NIH Osteo porosis and Related Bone Diseases http://www.osteo.org 2. International Society for Clinical Densitometry http://www.iscd.org 3. National Osteoporosis Foundation http://www.nof.org Electronically Jolanta d: Jono Dumont MD at 8:21 EDT Tel [phone], Service support [phone], CC: Marcelle Daley DO Water Service Dispatcher: Signed 17-May-2016 Shoulder min 2 Views Result: Comments: See Note; NOTES: [facility] Imaging Services [address] [place] [address] Verdana 4d Shoulder min 2 Views MR#: [id number] Acct: [id number] Name: AMY VALDOVINOS Josephine p #: [id number] : 1965 F 50 From: Jono Dumont MD PCP: Marcelle Daley DO Status: REG CLI Study: Shoulder min 2 Views Date of Exam: 05/17/16 Exam# [id number] Ordering Dr: Marcelle Daley DO STUD Y: X-RAY - LEFT SHOULDER REASON FOR EXAM: Female, 50 years old. Anterior pain. No known injury. TECHNIQUE: 4 view(s) of the shoulder. COMPARISON: None. FINDINGS: Normal glenohumeral articulation. Normal acromioclavicular joint. Normal acromion. Normal humeral head and visualized proximal humerus. The soft tissue structures are unremarkable. Normal visualized pulmonary apex. RAD/Shoulder min 2 Views IMPRESSION: Normal x-ray examination of the shoulder. Electronically Signed: Jono Dumont MD 06/05/27 at 12:52 EDT Tel [phone], Service support [phone], CC: Marcelle Daley DO Water Service Dispatcher: Signed 17-Mar-2016 Foot min 3 Views Result: Comments: See Note; NOTES: [facility] Imaging Services [address] [place] [address] Verdana 4d Foot min 3 Views MR#: [id number] Acct: [id number] Name: AMY VALDOVINOS Rep #: [id number] : 1965 F 50 From: Malcom Emmanuel MD PCP: Marcelle Daley DO Status: REG CLI Study: Foot min 3 Views Date of Exam: 03/17/16 Exam# [id number] Ordering Dr: Marcelle Daley DO STUDY: X-RAY - RIGHT FOOT CLINICAL: Female, 50 years old. Injury 2 weeks ago with lateral foot pain TECHNIQUE: 3 view(s) of the foot. COMPARISON: None. FIN DINGS: There is a plantar calcaneal spur. Normal visualized subtalar, talonavicular, calcaneocuboid, tarsal and tarsometatarsal articulations. Normal metatarsi. There is degenerative arthrosis o f the metatarsophalangeal joint of the hallux with a hallux valgus deformity. Normal tibial and fibular sesamoid bones. Normal interphalangeal joint of the great toe. Normal phalanges of the great to e. Mild flexion contracture of the fourth and fifth toes. Normal interphalangeal joints and phalanges of the lesser toes. The soft tissue structures are unremarkable. RAD/Foot min 3 Views IMPRESSION: No fracture or malalignment. Electronically Signed: Malcom Emmanuel MD at 13:39 EDT , Service support [phone], CC: Marcelle Daley DO Water Service Dispatcher: Signed 10-Nov-2015 Chest without Contrast Result: Comments: See Note; NOTES: [facility] Imaging Services [address] [place] [address] Verdana 4d Chest without Contrast MR#: [id number] Acct: [id number] Name: AMY GUILLERMO Rep #: [id number] : 1965 F 50 From: Ismael Mejia DO PCP: Marcelle Daley DO Status: REG CLI Study: Chest without Contrast Date of Exam: 11/10/15 Exam# [id number] Ordering Dr: Mabel Daley ra, DO STUDY: CT CHEST WITHOUT CONTRAST REASON FOR EXAM: Female, 50 years old. Supraclavicular lymphadenopathy. Left chest pain. Hypertension. RADIATION DOSAGE (If Supplied By Facility): CTDIvol = ( 17.86 ) mGy, DLP = ( 959.24 ) mGycm TECHNIQUE: Transaxial imaging was performed without the administration of intravenous contrast material. Multiplanar coronal and sagittal images were reform atted. COMPARISON: Chest, May 18, 2015. FINDINGS: The lungs are hyperexpanded. There is no focal mass or infiltrate. There is no demonstrated pleural ab normality. Normal heart and pericardium. Normal mediastinum. Normal hilar regions. Normal unenhanced pulmonary arteries. Normal aorta arch and descending thoracic aorta. There are multi-level deg enerative changes of the thoracic spine. There is no demonstrated abnormality of the visualized upper abdomen. IMPRESSION: Normal unenhanced CT Chest examinatio n. Electronically Signed: Ismael Mejia DO at 21:20 EDT Tel [phone], Service support [phone], CC: Marcelle Daley DO Water Service Dispatcher: Signed 10-Nov-2015 Chest without Contrast Result: Comments: See Note; NOTES: [facility] Imaging Services [address] [place] [address] Verdana 4d Chest without Contrast MR#: [id number] Acct: [id number] Name: AMY GUILLERMO Rep #: [id number] : 1965 F 50 From: Ismael Mejia DO PCP: Marcelle Daley DO Status: REG CLI Study: Chest without Contrast Date of Exam: 11/10/15 Exam# [id number] Ordering Dr: Mabel Daley ra, DO ADDENDUM by Ismael Mejia on 11/23/15 at 0952 ADDENDUM ADDENDUM: Review of the soft ti ssues of the supraclavicular regions demonstrate no evidence of lymphadenopathy or other soft tissue abnormality. Electronically Signed: Ismael Mejia DO at 9:52 EDT Tel [phone], Serv ice support [phone], 11/23/15 0952 Date cc: Marcelle Daley DO * Signed STUDY: CT CHEST WITHOUT CONTRAST REASON FOR EXAM: Female, 50 years old. Supraclav icular lymphadenopathy. Left chest pain. Hypertension. RADIATION DOSAGE (If Supplied By Facility): CTDIvol = ( 17.86 ) mGy, DLP = ( 959.24 ) mGycm TECHNIQUE: Transaxial imaging was performed witho ut the administration of intravenous contrast material. Multiplanar coronal and sagittal images were reformatted. COMPARISON: Chest, May 18, 2015. FINDIN GS: The lungs are hyperexpanded. There is no focal mass or infiltrate. There is no demonstrated pleural abnormality. Normal heart and pericardium. Normal mediastinum. Normal hilar regions. Normal unenhanced pulmonary arteries. Normal aorta arch and descending thoracic aorta. There are multi-level degenerative changes of the thoracic spine. There is no demonstrated abnormality of the visual ized upper abdomen. IMPRESSION: Normal unenhanced CT Chest examination. Electronically Signed: Ismael Mejia DO at 21:20 EDT Tel [phone], [employer] support [phone], CC: Marcelle Daley DO Water Service Dispatcher: Signed 10-Nov-2015 Thyroid Result: Comments: See Note; NOTES: [facility] Imaging Services [address] [place] [address] Verdana 4d Thyroid MR#: [id number] Acct: [id number] Name: AMY VALDOVINOS Rep #: [id number] : 1965 F 50 From: Jono Dumont MD PCP: Marcelle Daley DO Status: REG CLI Study: Thyroid Date of Exam: 11/10/15 Exam# [id number] Ordering Dr: Marcelle Daley DO STUDY: THYROI D ULTRASOUND REASON FOR EXAM: Female, 50 years old. Thyromegaly. History of thyroid nodules. TECHNIQUE: Ultrasound evaluation of the thyroid was performed with real-time and static acharya-scale imag ing. COMPARISON: Comparison is made with prior ultrasound examination of the thyroid dated June 23, 2014. FINDINGS: RIGHT LOBE: The right lobe of the thyro id gland is enlarged and measures 6 cm x 2.7 cm x 2.0 cm. There is a homogeneous echotexture. There is a 2.1 cm x 1.8 cm x 1.3 cm hypoechoic solid nodule in the lower posterior aspect of the right lo be of the thyroid. There is also evidence of a 1.8 cm x 1.3 cm x 1.3 cm hypoechoic solid nodule in the deep portion of the midpole of the right lobe. Increased vascularity is seen. LEFT LOBE: The le ft lobe of the thyroid gland is mildly enlarged and measures 5.2 cm x 1.9 cm x 1.4 cm. There is a homogeneous echotexture. There is a 1 cm x 0.8 cm x 0.5 cm hypoechoic solid nodule in the midpole of the left lobe. ISTHMUS: The isthmus measures 4.0 mm. The regional lymph nodes are normal. IMPRESSION: Nodular seen in the right lobe of the thyroid. The righ t lobe is enlarged. Correlation with a nuclear medicine thyroid scan and uptake is recommended. Slight enlargement of the hypoechoic nodule in the left lobe. Electronically Signed: Jono swann MD at 10:10 EDT Tel [phone], Service support [phone], CC: Marcelle Daley DO Water Service Dispatcher: Signed 08-Sep-2015 EKG (08976) Comments: ekg showed normal sinus rhythym, left axis, no acute st/t wave changes lv strain Result: [MEASUREMENTS ANALYSIS] Date of Test: 09/08/2015 12:10:48; Heart Rate: 55; NE Interval: 164; QRS: 114; QT Interval: 462; Corrected QT Interval (QTc): 454; P Wave [place]: 34; QRS Wave [place]: -29; T Wave Axi s: -16; Blood Pressure: 148/98 [ECG DIAGNOSTIC STATEMENTS] Date of Test: 09/08/2015 12:10:48; Summary: Sinus Bradycardia -Left axis. Voltage criteria for LVH (S(V1)+R(V6) exceeds 3.50 mV). -Nonspeci fic ST depression -Seen with left ventricular hypertrophy (strain) or digitalis effect. ABNORMAL 26-May-2015 Bilat Scrn Digital AND CAD Result: Comments: See Note; NOTES: [facility] Imaging Services [id number] [address] Breast Imaging Report MR#: [id number] Acct: [id number] Name: AMY VALDOVINOS Rep #: [id number] : 1965 F 50 From: Jono Dumont MD PCP: Marcelle Daley DO Status: REG CLI Study: Lesley Scrn Digital AND CAD Date of Exam: 05/26/15 Exam# [id number] Ordering Dr: Marcelle Daley DO MAMMOGRAPHY - BILATERAL SCREENING REASON FOR EXAM: Female, 50 years old. Routine annual screening examination. PERTINENT HISTORY: Non-contributory. TECHNIQUE: Digital examination. Mediolateral oblique (MLO) and craniocaudad (CC) views of both breasts were obtained. CAD: CAD was performed on this study. COMPARISON: Comparison is made with prior outside examination dated February 26, 2013. __ FINDINGS: Breast Composition: There are scattered areas of fibroglandular density. There are no dominant masses or suspicious calcifications. No other significan t abnormalities are identified. There has been no significant change since the prior study. IMPRESSION: Stable bilateral screening mammogram. Yearly follow-up re commended. (A) ASSESSMENT CATEGORY: BIRADS Category 1: Negative. A letter regarding these results will be sent to the patient by the facility within 30 days. Approximately 10% of breast cancers are not detected by mammography. A normal mammogram should not delay biopsy of a clinically suspicious abnormality. Electronically Signed: Jono Dumont MD at 15:40 EDT Tel [phone], Service support [phone], CC: Marcelle Daley DO Water Service Dispatcher: Signed 18-May-2015 Chest PA and Lateral Result: Comments: See Note; NOTES: [facility] Imaging Services [address] [place] [address] Radiology Report MR#: [id number] Acct: [id number] Name: AMY VALDOVINOS Rep #: [id number] : 1965 F 49 From: Jono Dumont MD PCP: Marcelle Daley DO Status: REG CLI Study: Chest PA and Lateral Date of Exam: 05/18/15 Exam# [id number] Ordering Dr: Vivian Washington STUDY: X-RA Y CHEST REASON FOR EXAM: Female, 49 years old. Left supraclavicular mass. TECHNIQUE: PA and lateral views of the chest. COMPARISON: Comparison is made with prior study dated January 07, 2015. FINDINGS: The lungs are clear and expanded. Scattered calcified granulomas. There is no demonstrated pleural abnormality. Normal size heart. Normal mediastinum and hi la. Normal visualized pulmonary arteries. Normal visualized aortic arch and descending thoracic aorta. There are degenerative changes of the visualized thoracic spine. Normal visualized ribs, clavi cles, and shoulders. There is no demonstrated abnormality of the visualized soft tissue structures of the upper abdomen. IMPRESSION: No acute abnormality is se en. Electronically Signed: Jono Dumont MD at 14:19 EDT Tel [phone], Service support [phone], RAD/Chest PA and Lateral IMPRESSION: No acute abnormality is seen. Electronically Signed: Jono Dumont MD at 14:19 EDT Tel [phone], Service support [phone], CC: Vivian Washington; Marcelle Daley DO Water Service Dispatcher: Signed 15-Jan-2015 Chest PA and Lateral Result: Comments: See Note; NOTES: [facility] Imaging Services [address] [place] [address] Radiology Report MR#: [id number] Acct: [id number] Name: AMY VALDOVINOS Rep #: [id number] : 1965 F 49 From: Shine Sawyer MD PCP: Marcelle Daley DO Status: REG CLI Study: Chest PA and Lateral Date of Exam: 01/15/15 Exam# [id number] Ordering Dr: Jing Harrison DO STUDY : X-RAY CHEST REASON FOR EXAM: Female, 49 years old. Cough. TECHNIQUE: Frontal and lateral views of the chest. COMPARISON: 04/16/13. FINDINGS: The lungs are clear and expanded. There is no demonstrated pleural abnormality. Normal size heart. Normal mediastinum and rosa. Normal visualized pulmonary arteries. Normal visualized aortic arch and descending thoracic aorta. Normal visualized thoracic spine. Normal visualized ribs, clavicles, and shoulders. There is no demonstrated abnormality of the visualized soft tissue structures of the upper abdo men. IMPRESSION: Normal x-ray examination of the chest. Electronically Signed: Shine Sawyer MD at 23:41 EDT , Service support [phone], RAD/Chest PA and Lateral IMPRESSION: Normal x-ray examination of the chest. Electronically Signed: Shine Sawyer MD at 23:41 E DT , Service support [phone], CC: Marcelle Daley DO; Jing Harrison DO Water Service Dispatcher: Signed 15-Jan-2015 Inhaler Demo ([id number]) Result: Comments: I instructed pt to use inhaler, then she redemonstrated the technique back to me. 15-Jan-2015 Spirometry ([id number]) Comments: obsrtuction present Result: 29-Oct-2014 Abdomen WITH and W/O Contrast Result: Comments: See Note; NOTES: [facility] Imaging Services [address] [place] [address] [place] [address] MRI Report MR#: [id number] Acct: [id number] Name: AMY VALDOVINOS Rep #: [id number] : 1965 F 49 From: Heavenly Rojas MD PCP: Marcelle Daley DO Status: REG CLI Study: Abdomen WITH and W/O Contrast Date of Exam: 10/29/14 Exam# [id number] Ordering Dr: Stanton Caal MD STUDY: M RI ABDOMEN WITH AND WITHOUT CONTRAST REASON FOR EXAM: Female, 49 years old. Left flank pain. History of left renal cancer with partial nephrectomy. TECHNIQUE: Standardized fat and water weighted pu lse sequences were obtained in all 3 orthogonal planes post contrast administration. 10 ml of Gadavist contrast material was administered intravenously for the contrast portion of the examination. Th e examination is tailored for evaluation of the kidneys. COMPARISON: November 30, 2013 FINDINGS: The visualized lung bases are unremarkable. The visualized portio ns of the heart are within normal limits. Normal liver. There are surgical clips in the gallbladder fossa consistent with a prior cholecystectomy. Normal spleen. Normal pancreas. Normal bilateral adrenal glands. Normal right kidney. There is no right renal mass or hydronephrosis. There is stable scarring in the mid to upper pole of the left kidney posteriorly at the site of partial nephrect carter with adjacent postoperative change. No recurrent mass is seen. There is a 1.1 x 1.0 cm simple cyst in the mid to lower pole of the left kidney (series 5 image 12). Normal visualized stomach. Nor mal small intestine. Normal colon. The appendix is visualized and appears normal. Normal abdominal aorta. Normal inferior vena cava. Normal retroperitoneum. Normal abdominal wall. Normal osseous s tructures. IMPRESSION: Stable postoperative changes in the mid to upper pole of the left kidney posteriorly with no evidence of recurrent mass. Adjacent postoper ative changes are seen. Simple cyst in the mid to lower pole the left kidney. No enhancing renal masses. Status post cholecystectomy. Electronically Signed: Heavenly Rojas MD at 1 1:15 EDT , Service support [phone], CC: Marcelle Daley DO; Stanton Caal MD Water Service Dispatcher: Signed 23-Jun-2014 Esophagus Only Result: Comments: See Note; NOTES: [facility] Imaging Services [address] [place] [address] Radiology Report MR#: [id number] Acct: [id number] Name: AMY VALDOVINOS Rep #: [id number] : 1965 F 49 From: Jono Dumont MD PCP: Status: REG CLI Study: Esophagus Only Date of Exam: 06/23/14 Exam# [id number] Ordering Dr: Jing Harrison DO STUDY: X-RAY - ESOPHAGUS (BARIUM SWALLOW) WITH FLUOROSCOPY REASON FOR EXAM: Female, 49 years old. 2 week history of dysphagia. TECHNIQUE: Multiple view(s) of the esophagus were obtained following swallowing of barium. F LUOROSCOPY TIME (if supplied): (0:23) minutes/seconds COMPARISON: None. FINDINGS: There is no demonstrated esophageal foreign body. There is no demonstrated st ricture or mucosal abnormality. There is a small hiatal hernia of the fundus of the stomach. There is no evidence of gastroesophageal reflux. The patient ingested a 12 mm tablet of barium without any difficulty. Normal visualized aortic arch and descending thoracic aorta. Normal visualized pulmonary parenchyma. Normal visualized osseous structures of the thorax. ____ IMPRESSION: Small sliding hiatal hernia with no evidence of gastroesophageal reflux. Electronically Signed: Jono Dumont MD at 9:21 EST Tel [phone], Service support [phone], RAD/Esophagus Only IMPRESSION: Small sliding hiatal hernia with no evidence of gastroesophageal reflux. Electronically Signed: Jono Dumont MD at 9:21 EST Tel [phone], Service support [phone], CC: Jing Harrison DO Water Service Dispatcher: Signed 23-Jun-2014 Thyroid Result: Comments: See Note; NOTES: [facility] Imaging Services [address] [place] [address] Ultrasound Report MR#: [id number] Acct: [id number] Name: AMY VALDOVINOS Rep #: [id number] : 1965 F 49 From: Jono Dumont MD PCP: Status: REG CLI Study: Thyroid Date of Exam: 06/23/14 Exam# [id number] Ordering Dr: Jing Harrison DO STUDY: THYROID ULTRASOUND RE ASON FOR EXAM: Female, 49 years old. Thyromegaly. Dysphagia. TECHNIQUE: Ultrasound evaluation of the thyroid was performed with real-time and static acharya-scale imaging. COMPARISON: None. FINDINGS: RIGHT LOBE: The right lobe of the thyroid gland measures 5.1 cm x 2.5 cm x 2.1 cm. There is a homogeneous echotexture. There are 3 hypoechoic solid nodules ignacio suring less than 1 cm in the midportion of the right lobe. The largest measures 9 mm x 7 mm x 8 mm. LEFT LOBE: The left lobe of the thyroid gland measures 4.7 cm x 1.7 cm x 1.4 cm. There is a homoge neous echotexture. There are 3 solid hypoechoic subcentimeter nodules scattered in the left lobe. The largest measures 7 mm x 7 mm x 6 mm. This lies in the midportion. ISTHMUS: The isthmus measures 4.0 mm. The regional lymph nodes are normal. IMPRESSION: There are 3 subcentimeter solid nodules scattered in both lobes of the thyroid. Correlation with a nu clear medicine thyroid uptake and scan is recommended. Electronically Signed: Jono Dumont MD at 15:38 EST Tel [phone], Service support [phone], C C: Jing Harrison DO Water Service Dispatcher: Signed 30-Nov-2013 Abdomen/Pelvis WITH Contrast Result: Comments: See Note; NOTES: [facility] Imaging Services [address] [place] [address] CAT Scan Report MR#: [id number] Acct: [id number] Name: AMY VALDOVINOS Rep #: [id number] : 1965 F 48 From: Jesse Carrington MD PCP: Marcelle Daley DO Status: REG CLI Study: Abdomen/Pelvis WITH Contrast Date of Exam: 11/30/13 Exam# [id number] Ordering Dr: Vivian Washington STUDY: CT ABDOMEN AND PELVIS WITH CONTRAST REASON FOR EXAM: Female, 48 years old. Right- sided pain. History of renal cell or schwannoma. Abnormal ultrasound. RADIATION DOSAGE (If Supplied By Facility): CTDI vol = ( 19.90 ) mGy, DLP = ( 2342.27 ) mGycm TECHNIQUE: Transaxial images were obtained from the dome of the diaphragm to the symphysis pubis with oral contrast. 100mL ml of Isovue 300 contrast was administered. Sagittal and coronal images were reconstructed. COMPARISON: Including ultrasound November [address] April 20, 2013. FINDINGS: The visualized lung bases are unremarkable. The visualized portions of the heart are within normal limits. There is decreased attenuation of the liver consistent with steatosis. There is non-visualization of the gallb ladder, which may be secondary to either contraction or a prior cholecystectomy. Normal spleen. Normal pancreas. Normal bilateral adrenal glands. Normal right kidney. Postoperative change involvin g the mid aspect of the left kidney with resection of mass. Abnormal contour with scarring in this region. Small cyst at the lower pole measuring 1.4 cm is stable. No enhancing mass. Normal visuali zed stomach. Normal small intestine. Normal colon. The appendix is visualized and appears normal. Normal abdominal aorta. Normal inferior vena cava. Normal retroperitoneum. Normal urinary bladder. No free fluid in the abdomen or pelvis. Normal abdominal wall. Normal osseous structures. IMPRESSION: Partial nephrectomy on the left side. Scarring with abnor mal contour. No dominant mass. Small cyst at the lower pole. Fatty infiltration of the liver. Electronically Signed: Jesse Carrington MD at 8:45 EDT , Service support , CC: Vivian Washington; Marcelle Daley DO; Dr. Iglesia Lee M.D.; Stanton Caal MD Water Service Dispatcher: Signed 26-Nov-2013 Kidney and Bladder Result: Comments: See Note; NOTES: [facility] Imaging Services [address] [place] [address] Ultrasound Report MR#: [id number] Acct: [id number] Name: AMY VALDOVINOS Rep #: [id number] : 1965 F 48 From: Jono Dumont MD PCP: Marcelle Daley DO Status: REG CLI Study: Kidney and Bladder Date of Exam: 11/26/13 Exam# [id number] Ordering Dr: Vivian Washington STUDY: RENAL ULTRASOUND - COMPLETE REASON FOR EXAM: Female, 48 years old. History of partial left nephrectomy. TECHNIQUE: Ultrasound evaluation of the kidneys was performed with real-time and static saunders-scale imaging. COMPARISON: None. FINDINGS: RIGHT KIDNEY: Normal location of the right kidney, which is normal in size. The right kidney measures 13.6 cm. There is a normal cortex of the right kidney. The renal cortex measures 1.3 cm. There is no right renal mass or cyst. There are no right renal calculi. There is no right hydronephrosis. DISTAL RIGHT URETER: There is non-visualization of the distal right ureter. There is no demonstrated right ureterovesical junction calculus. There is a visualized right ureteral jet. LEFT KIDNEY: Normal location of the left kidney, which is normal in size. The left kidney measures 12.8 cm. There is a normal cortex of the left kidney. The renal cortex measures 1.6 cm. There is no left renal mass or cyst. Focal scar ring is seen in the midportion of the kidney suggestive of a postsurgical changes. There is a 3 cm x 3.2 cm x 2.2 cm area of decreased echotexture along the inferior lateral aspect of the left kidney. This merits and postoperative changes. This is not evident on prior CT scan dated April 20, 2013. Followup CT scan is recommended. There are no left renal calculi. There is no left hydronephrosis. DISTAL LEFT URETER: There is non-visualization of the distal left ureter. There is no demonstrated left ureterovesical junction calculus. There is a visualized left ureteral jet. BLADDER: The dist ended urinary bladder has a volume of 67 ml. There is a normal wall thickness of the distended urinary bladder. There is no demonstrated mass within the urinary bladder. There are no demonstrated perla dder calculi. IMPRESSION: The patient is status post partial left nephrectomy with area of scarring and focal area of hypodensity along its inferior pole. Correl ation with a CT scan is recommended. Electronically Signed: Jono Dumont MD at 12:56 EDT Tel , Service support [phone], CC: Vivian Daley DO Water Service Dispatcher: Signed 31-May-2013 Knee 4 or More Views Result: Comments: See Note; NOTES: [facility] Imaging Services [address] [place] [address] Radiology Report MR#: [id number] Acct: [id number] Name: AMY VALDOVINOS Rep #: [id number] : 1965 F 48 From: Jono Dumont MD PCP: Status: REG CLI Study: Knee 4 or More Views Date of Exam: 05/31/13 Exam# [id number] Ordering Dr: Vivian Washington STUDY: X-RAY - LEFT KNEE REASON FOR EXAM: Female, 48 years old. Left knee pain. TECHNIQUE: 4 views of the knee. COMPARISON: None. FINDINGS: Normal visualized distal femur. Normal vis ualized proximal tibia and fibula. Normal proximal tibiofibular articulation. Findings suggestive of a healed fracture of the superior lateral portion of the patella. There is severe degenerative ar throsis of the medial femorotibial compartment with severe joint space narrowing. Normal lateral femorotibial compartment. There is severe degenerative arthrosis of the patellofemoral articulation. Joint effusion. IMPRESSION: Degenerative arthrosis. Joint effusion. Findings suggestive of a healed fracture of the superior lateral portion of the patella. Signed: Jono Dumont M.D. May 31, 2013 at 1:16:23 PM EDT [phone] Electronically Signed GP/GP If you are the referring physician and would like to consult with the radiologist w ho provided this interpretation, please contact Jono Dumont M.D. at [phone]. If this radiologist is unavailable, you will be directed to another radiologist to assist. If you are a veronica ent with a question regarding this report, please contact your referring physician directly. Professional Interpretation Provided By: [employer], Phone , These docum ents contain legally protected and confidential health information intended only for the use of the individual or entity named above. If you are not the intended recipient, you are hereby notified kendra t any disclosure, copying, distribution, or other use of these documents is strictly prohibited. If you have received this information in error, please notify the sender immediately and arrange for t he return or destruction of these documents. 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 Status: Active Smoking Status Name Dates Details Never smoker Vital Signs Date Test Result Details :10 Temperature 97.5 f Comments: Method: Temporal Pulse 54 /min Comments: Pattern: Regular Respiration Rate 16 /min Comments: Pattern: Unlabored BP Systolic 100 mm[Hg] Comments: Patient Position: Sitting; Cuff Location: Left Arm; Cuff Size: Standard BP Diastolic 68 mm[Hg] Comments: Patient Position: Sitting; Cuff Location: Left Arm; Cuff Size: Standard Weight 195.5 lb Height 66 in Body Mass Index Calculated 31.55 kg/m2 Body Surface Area Calculated 1.98 m2 :04 Temperature 97.7 f Comments: Method: Temporal Pulse 81 /min Comments: Pattern: Regular Respiration Rate 16 /min Comments: Pattern: Unlabored O2 SAT 97 % Comments: Room air BP Systolic 90 mm[Hg] Comments: Patient Position: Sitting; Cuff Location: Left Arm; Cuff Size: Standard BP Diastolic 68 mm[Hg] Comments: Patient Position: Sitting; Cuff Location: Left Arm; Cuff Size: Standard Weight 221.5 lb Height 66 in Body Mass Index Calculated 35.75 kg/m2 Body Surface Area Calculated 2.09 m2 :02 Temperature 98 f Comments: Method: Temporal Pulse 67 /min Comments: Pattern: Regular BP Systolic 118 mm[Hg] Comments: Patient Position: Sitting; Cuff Location: Left Arm; Cuff Size: Standard BP Diastolic 70 mm[Hg] Comments: Patient Position: Sitting; Cuff Location: Left Arm; Cuff Size: Standard Weight 221.5 lb Height 66 in Body Mass Index Calculated 35.75 kg/m2 Body Surface Area Calculated 2.09 m2 :28 Temperature 98.1 f Comments: Method: Temporal Pulse 91 /min Comments: Pattern: Regular Respiration Rate 16 /min Comments: Pattern: Unlabored BP Systolic 115 mm[Hg] Comments: Patient Position: Sitting; Cuff Location: Left Arm; Cuff Size: Standard BP Diastolic 80 mm[Hg] Comments: Patient Position: Sitting; Cuff Location: Left Arm; Cuff Size: Standard Weight 246.5 lb Height 66 in Body Mass Index Calculated 39.79 kg/m2 Body Surface Area Calculated 2.19 m2 :15 Temperature 97.4 f Comments: Method: Temporal Pulse 80 /min Comments: Pattern: Regular Respiration Rate 16 /min Comments: Pattern: Unlabored BP Systolic 120 mm[Hg] Comments: Patient Position: Sitting; Cuff Location: Left Arm; Cuff Size: Standard BP Diastolic 78 mm[Hg] Comments: Patient Position: Sitting; Cuff Location: Left Arm; Cuff Size: Standard Weight 246.5 lb Height 66 in Body Mass Index Calculated 39.79 kg/m2 Body Surface Area Calculated 2.19 m2 [id number] Temperature 97.5 f Comments: Method: Temporal Pulse 66 /min Comments: Pattern: Regular Respiration Rate 16 /min Comments: Pattern: Unlabored BP Systolic 110 mm[Hg] Comments: Patient Position: Sitting; Cuff Location: Left Arm; Cuff Size: Standard BP Diastolic 78 mm[Hg] Comments: Patient Position: Sitting; Cuff Location: Left Arm; Cuff Size: Standard Weight 240 lb Height 66 in Body Mass Index Calculated 38.74 kg/m2 Body Surface Area Calculated 2.16 m2 :40 Temperature 97.3 f Comments: Method: Temporal Pulse 72 /min Comments: Pattern: Regular Respiration Rate 16 /min Comments: Pattern: Unlabored O2 SAT 94 % Comments: Room air BP Systolic 132 mm[Hg] Comments: Patient Position: Sitting; Cuff Location: Left Arm; Cuff Size: Large BP Diastolic 84 mm[Hg] Comments: Patient Position: Sitting; Cuff Location: Left Arm; Cuff Size: Large Weight 247 lb Height 66 in Body Mass Index Calculated 39.87 kg/m2 Body Surface Area Calculated 2.19 m2 :05 Temperature 97.4 f Comments: Method: Temporal Pulse 78 /min Comments: Pattern: Regular Respiration Rate 16 /min Comments: Pattern: Unlabored O2 SAT 96 % Comments: Room air BP Systolic 115 mm[Hg] Comments: Patient Position: Sitting; Cuff Location: Left Arm; Cuff Size: Standard BP Diastolic 70 mm[Hg] Comments: Patient Position: Sitting; Cuff Location: Left Arm; Cuff Size: Standard Weight 242 lb Height 66 in Body Mass Index Calculated 39.06 kg/m2 Body Surface Area Calculated 2.17 m2 :02 Temperature 98 f Comments: Method: Temporal Pulse 62 /min Comments: Pattern: Regular Respiration Rate 16 /min Comments: Pattern: Unlabored BP Systolic 122 mm[Hg] Comments: Patient Position: Sitting; Cuff Location: Left Arm; Cuff Size: Standard BP Diastolic 62 mm[Hg] Comments: Patient Position: Sitting; Cuff Location: Left Arm; Cuff Size: Standard Weight 242 lb Height 66 in Body Mass Index Calculated 39.06 kg/m2 Body Surface Area Calculated 2.17 m2 :05 Temperature 97.6 f Comments: Method: Temporal Pulse 79 /min Comments: Pattern: Regular Respiration Rate 16 /min Comments: Pattern: Unlabored BP Systolic 124 mm[Hg] Comments: Patient Position: Sitting; Cuff Location: Left Arm; Cuff Size: Standard BP Diastolic 80 mm[Hg] Comments: Patient Position: Sitting; Cuff Location: Left Arm; Cuff Size: Standard Weight 242 lb Height 66 in Body Mass Index Calculated 39.06 kg/m2 Body Surface Area Calculated 2.17 m2 :19 Temperature 97.9 f Comments: Method: Temporal Pulse 70 /min Comments: Pattern: Regular Respiration Rate 16 /min Comments: Pattern: Unlabored O2 SAT 97 % Comments: Room air BP Systolic 116 mm[Hg] Comments: Patient Position: Sitting; Cuff Location: Left Arm; Cuff Size: Large BP Diastolic 88 mm[Hg] Comments: Patient Position: Sitting; Cuff Location: Left Arm; Cuff Size: Large Weight 236 lb Height 66 in Body Mass Index Calculated 38.09 kg/m2 Body Surface Area Calculated 2.15 m2 :59 Temperature 97.6 f Comments: Method: Temporal Pulse 70 /min Comments: Pattern: Regular Respiration Rate 16 /min Comments: Pattern: Unlabored O2 SAT 95 % Comments: Room air BP Systolic 114 mm[Hg] Comments: Patient Position: Sitting; Cuff Location: Left Arm; Cuff Size: Large BP Diastolic 76 mm[Hg] Comments: Patient Position: Sitting; Cuff Location: Left Arm; Cuff Size: Large Weight 230 lb Height 66 in Body Mass Index Calculated 37.12 kg/m2 Body Surface Area Calculated 2.12 m2 :01 Temperature 97.4 f Comments: Method: Temporal Pulse 68 /min Comments: Pattern: Regular Respiration Rate 16 /min Comments: Pattern: Unlabored O2 SAT 96 % Comments: Room air BP Systolic 108 mm[Hg] Comments: Patient Position: Sitting; Cuff Location: Left Arm; Cuff Size: Large BP Diastolic 74 mm[Hg] Comments: Patient Position: Sitting; Cuff Location: Left Arm; Cuff Size: Large Weight 230 lb Height 66 in Body Mass Index Calculated 37.12 kg/m2 Body Surface Area Calculated 2.12 m2 :20 Temperature 97.3 f Comments: Method: Temporal Pulse 78 /min Comments: Pattern: Regular Respiration Rate 16 /min Comments: Pattern: Unlabored O2 SAT 96 % Comments: Room air BP Systolic 122 mm[Hg] Comments: Patient Position: Sitting; Cuff Location: Left Arm; Cuff Size: Large BP Diastolic 88 mm[Hg] Comments: Patient Position: Sitting; Cuff Location: Left Arm; Cuff Size: Large Weight 233 lb Height 66 in Body Mass Index Calculated 37.61 kg/m2 Body Surface Area Calculated 2.13 m2 :01 Temperature 97.2 f Comments: Method: Temporal Pulse 80 /min Comments: Pattern: Regular Respiration Rate 16 /min Comments: Pattern: Unlabored O2 SAT 94 % Comments: Room air BP Systolic 126 mm[Hg] Comments: Patient Position: Sitting; Cuff Location: Left Arm; Cuff Size: Large BP Diastolic 84 mm[Hg] Comments: Patient Position: Sitting; Cuff Location: Left Arm; Cuff Size: Large Weight 247 lb Height 66 in Body Mass Index Calculated 39.87 kg/m2 Body Surface Area Calculated 2.19 m2 :53 Temperature 97.8 f Comments: Method: Temporal Pulse 98 /min Comments: Pattern: Regular Respiration Rate 16 /min Comments: Pattern: Unlabored O2 SAT 96 % Comments: Room air BP Systolic 130 mm[Hg] Comments: Patient Position: Sitting; Cuff Location: Left Arm; Cuff Size: Large BP Diastolic 74 mm[Hg] Comments: Patient Position: Sitting; Cuff Location: Left Arm; Cuff Size: Large Weight 235 lb Height 66 in Body Mass Index Calculated 37.93 kg/m2 Body Surface Area Calculated 2.14 m2 :37 Temperature 97.3 f Comments: Method: Temporal Pulse 104 /min Comments: Pattern: Regular Respiration Rate 16 /min Comments: Pattern: Unlabored O2 SAT 95 % Comments: Room air BP Systolic 104 mm[Hg] Comments: Patient Position: Sitting; Cuff Location: Left Arm; Cuff Size: Large BP Diastolic 80 mm[Hg] Comments: Patient Position: Sitting; Cuff Location: Left Arm; Cuff Size: Large Weight 234 lb Height 66 in Body Mass Index Calculated 37.77 kg/m2 Body Surface Area Calculated 2.14 m2 :09 Temperature 96.7 f Comments: Method: Temporal Pulse 71 /min Comments: Pattern: Regular Respiration Rate 16 /min Comments: Pattern: Unlabored BP Systolic 118 mm[Hg] Comments: Patient Position: Sitting; Cuff Location: Left Arm; Cuff Size: Standard BP Diastolic 70 mm[Hg] Comments: Patient Position: Sitting; Cuff Location: Left Arm; Cuff Size: Standard Weight 234 lb Height 66 in Body Mass Index Calculated 37.77 kg/m2 Body Surface Area Calculated 2.14 m2 :45 Temperature 97.2 f Comments: Method: Temporal Pulse 92 /min Comments: Pattern: Regular Respiration Rate 16 /min Comments: Pattern: Unlabored O2 SAT 94 % Comments: Room air BP Systolic 102 mm[Hg] Comments: Patient Position: Sitting; Cuff Location: Left Arm; Cuff Size: Large BP Diastolic 74 mm[Hg] Comments: Patient Position: Sitting; Cuff Location: Left Arm; Cuff Size: Large Weight 229 lb Height 66 in Body Mass Index Calculated 36.96 kg/m2 Body Surface Area Calculated 2.12 m2 :19 Temperature 97.6 f Comments: Method: Temporal Pulse 92 /min Comments: Pattern: Regular Respiration Rate 16 /min Comments: Pattern: Unlabored O2 SAT 95 % Comments: Room air BP Systolic 124 mm[Hg] Comments: Patient Position: Sitting; Cuff Location: Left Arm; Cuff Size: Large BP Diastolic 82 mm[Hg] Comments: Patient Position: Sitting; Cuff Location: Left Arm; Cuff Size: Large Weight 223 lb Height 66 in Body Mass Index Calculated 35.99 kg/m2 Body Surface Area Calculated 2.1 m2 :00 Temperature 97.4 f Comments: Method: Tympanic Pulse 65 /min Comments: Pattern: Regular Respiration Rate 18 /min Comments: Pattern: Unlabored O2 SAT 98 % Comments: Room air BP Systolic 120 mm[Hg] Comments: Patient Position: Sitting; Cuff Location: Left Arm; Cuff Size: Standard BP Diastolic 72 mm[Hg] Comments: Patient Position: Sitting; Cuff Location: Left Arm; Cuff Size: Standard Weight 209 lb Height 66 in Body Mass Index Calculated 33.73 kg/m2 Body Surface Area Calculated 2.04 m2 :22 Temperature 98.2 f Comments: Method: Temporal Pulse 66 /min Comments: Pattern: Regular Respiration Rate 15 /min Comments: Pattern: Unlabored O2 SAT 97 % Comments: Room air BP Systolic 114 mm[Hg] Comments: Patient Position: Sitting; Cuff Location: Left Arm; Cuff Size: Large BP Diastolic 82 mm[Hg] Comments: Patient Position: Sitting; Cuff Location: Left Arm; Cuff Size: Large Weight 217 lb Height 66 in Body Mass Index Calculated 35.02 kg/m2 Body Surface Area Calculated 2.07 m2 :29 Temperature 97.6 f Comments: Method: Oral Pulse 76 /min Comments: Pattern: Regular Respiration Rate 16 /min Comments: Pattern: Unlabored BP Systolic 126 mm[Hg] Comments: Patient Position: Sitting; Cuff Location: Left Arm; Cuff Size: Standard BP Diastolic 80 mm[Hg] Comments: Patient Position: Sitting; Cuff Location: Left Arm; Cuff Size: Standard Weight 217.125 lb Height 66 in Body Mass Index Calculated 35.04 kg/m2 Body Surface Area Calculated 2.07 m2 :17 Temperature 97.7 f Comments: Method: Temporal Pulse 55 /min Comments: Pattern: Regular Respiration Rate 16 /min Comments: Pattern: Unlabored O2 SAT 95 % Comments: Room air BP Systolic 148 mm[Hg] Comments: Patient Position: Sitting; Cuff Location: Left Arm; Cuff Size: Standard BP Diastolic 98 mm[Hg] Comments: Patient Position: Sitting; Cuff Location: Left Arm; Cuff Size: Standard Weight 216 lb Height 66 in Body Mass Index Calculated 34.86 kg/m2 Body Surface Area Calculated 2.07 m2 :54 Comments: 216.5 at home Temperature 97.5 f Comments: Method: Temporal Pulse 76 /min Comments: Pattern: Regular Respiration Rate 16 /min Comments: Pattern: Unlabored O2 SAT 96 % Comments: Room air BP Systolic 168 mm[Hg] Comments: Patient Position: Sitting; Cuff Location: Left Arm; Cuff Size: Standard BP Diastolic 100 mm[Hg] Comments: Patient Position: Sitting; Cuff Location: Left Arm; Cuff Size: Standard Weight 217 lb Height 66 in Body Mass Index Calculated 35.02 kg/m2 Body Surface Area Calculated 2.07 m2 :22 Temperature 96.8 f Pulse 78 /min Comments: Pattern: Regular Respiration Rate 16 /min Comments: Pattern: Unlabored O2 SAT 98 % Comments: Room air BP Systolic 142 mm[Hg] Comments: Patient Position: Sitting; Cuff Location: Left Arm; Cuff Size: Standard BP Diastolic 84 mm[Hg] Comments: Patient Position: Sitting; Cuff Location: Left Arm; Cuff Size: Standard Weight 210.5 lb Height 66 in Body Mass Index Calculated 33.98 kg/m2 Body Surface Area Calculated 2.04 m2 :10 Temperature 97.2 f Pulse 79 /min Comments: Pattern: Regular Respiration Rate 16 /min Comments: Pattern: Unlabored O2 SAT 96 % Comments: Room air BP Systolic 122 mm[Hg] Comments: Patient Position: Sitting; Cuff Location: Left Arm; Cuff Size: Standard BP Diastolic 82 mm[Hg] Comments: Patient Position: Sitting; Cuff Location: Left Arm; Cuff Size: Standard Weight 210.375 lb Height 66 in Body Mass Index Calculated 33.96 kg/m2 Body Surface Area Calculated 2.04 m2 :30 Temperature 98.1 f Comments: Method: Temporal Pulse 64 /min Comments: Pattern: Regular Respiration Rate 16 /min Comments: Pattern: Unlabored O2 SAT 97 % Comments: Room air BP Systolic 128 mm[Hg] Comments: Patient Position: Sitting; Cuff Location: Left Arm; Cuff Size: Large BP Diastolic 86 mm[Hg] Comments: Patient Position: Sitting; Cuff Location: Left Arm; Cuff Size: Large Weight 210 lb Height 66 in Body Mass Index Calculated 33.89 kg/m2 Body Surface Area Calculated 2.04 m2 :34 Comments: when hits bus pain 04/30 Temperature 98 f Pulse 95 /min Comments: Pattern: Regular Respiration Rate 18 /min Comments: Pattern: Unlabored O2 SAT 97 % Comments: Room air BP Systolic 136 mm[Hg] Comments: Patient Position: Sitting; Cuff Location: Left Arm; Cuff Size: Standard BP Diastolic 88 mm[Hg] Comments: Patient Position: Sitting; Cuff Location: Left Arm; Cuff Size: Standard Weight 219 lb Height 66 in Body Mass Index Calculated 35.35 kg/m2 Body Surface Area Calculated 2.08 m2 :45 Temperature 97.4 f Comments: Method: Oral Pulse 70 /min Comments: Pattern: Regular Respiration Rate 16 /min Comments: Pattern: Unlabored BP Systolic 124 mm[Hg] Comments: Patient Position: Sitting; Cuff Location: Left Arm; Cuff Size: Large BP Diastolic 86 mm[Hg] Comments: Patient Position: Sitting; Cuff Location: Left Arm; Cuff Size: Large Weight 216 lb Height 66 in Body Mass Index Calculated 34.86 kg/m2 Body Surface Area Calculated 2.07 m2 :28 Pulse 101 /min Comments: Pattern: Regular Respiration Rate 18 /min Comments: Pattern: Unlabored O2 SAT 99 % Comments: Room air BP Systolic 118 mm[Hg] Comments: Patient Position: Sitting; Cuff Location: Left Arm; Cuff Size: Large BP Diastolic 82 mm[Hg] Comments: Patient Position: Sitting; Cuff Location: Left Arm; Cuff Size: Large Weight 221 lb Height 66 in Body Mass Index Calculated 35.67 kg/m2 Body Surface Area Calculated 2.09 m2 :57 Temperature 98.1 f Comments: Method: Temporal Pulse 64 /min Comments: Pattern: Regular Respiration Rate 18 /min Comments: Pattern: Unlabored O2 SAT 97 % Comments: Room air BP Systolic 118 mm[Hg] Comments: Patient Position: Sitting; Cuff Location: Left Arm; Cuff Size: Large BP Diastolic 70 mm[Hg] Comments: Patient Position: Sitting; Cuff Location: Left Arm; Cuff Size: Large Weight 221 lb Height 66 in Body Mass Index Calculated 35.67 kg/m2 Body Surface Area Calculated 2.09 m2 :13 BP Systolic 130 mm[Hg] Comments: Patient Position: Sitting BP Diastolic 80 mm[Hg] Comments: Patient Position: Sitting :40 Temperature 96.9 f Pulse 60 /min Comments: Pattern: Regular Respiration Rate 16 /min Comments: Pattern: Unlabored BP Systolic 120 mm[Hg] Comments: Patient Position: Sitting; Cuff Location: Left Arm; Cuff Size: Large BP Diastolic 90 mm[Hg] Comments: Patient Position: Sitting; Cuff Location: Left Arm; Cuff Size: Large Weight 221 lb Height 66 in Body Mass Index Calculated 35.67 kg/m2 Body Surface Area Calculated 2.09 m2 :39 Temperature 98 f Pulse 76 /min Comments: Pattern: Regular Respiration Rate 16 /min Comments: Pattern: Unlabored BP Systolic 112 mm[Hg] Comments: Patient Position: Sitting; Cuff Location: Left Arm; Cuff Size: Large BP Diastolic 78 mm[Hg] Comments: Patient Position: Sitting; Cuff Location: Left Arm; Cuff Size: Large Weight 236 lb Height 66 in Body Mass Index Calculated 38.09 kg/m2 Body Surface Area Calculated 2.15 m2 :36 Temperature 97.5 f Pulse 62 /min Comments: Pattern: Regular Respiration Rate 18 /min Comments: Pattern: Unlabored BP Systolic 122 mm[Hg] Comments: Patient Position: Sitting; Cuff Location: Left Arm; Cuff Size: Large BP Diastolic 88 mm[Hg] Comments: Patient Position: Sitting; Cuff Location: Left Arm; Cuff Size: Large Weight 256 lb Height 66 in Body Mass Index Calculated 41.32 kg/m2 Body Surface Area Calculated 2.22 m2 :54 Temperature 97.4 f Comments: Method: Oral Pulse 64 /min Comments: Pattern: Regular Respiration Rate 18 /min O2 SAT 97 % Comments: Room air BP Systolic 112 mm[Hg] Comments: Patient Position: Sitting; Cuff Location: Left Arm; Cuff Size: Standard BP Diastolic 72 mm[Hg] Comments: Patient Position: Sitting; Cuff Location: Left Arm; Cuff Size: Standard Weight 264.375 lb Height 66 in Body Mass Index Calculated 42.67 kg/m2 Body Surface Area Calculated 2.25 m2 :57 Temperature 98.5 f Comments: Method: Oral Pulse 68 /min Comments: Pattern: Regular Respiration Rate 18 /min O2 SAT 98 % Comments: Room air Weight 264.375 lb Height 66 in Body Mass Index Calculated 42.67 kg/m2 Body Surface Area Calculated 2.25 m2 :35 Temperature 97.6 f Comments: Method: Oral Pulse 61 /min Comments: Pattern: Regular Respiration Rate 18 /min Comments: Pattern: Unlabored O2 SAT 98 % Comments: Room air BP Systolic 118 mm[Hg] Comments: Patient Position: Sitting; Cuff Location: Left Arm; Cuff Size: Large BP Diastolic 70 mm[Hg] Comments: Patient Position: Sitting; Cuff Location: Left Arm; Cuff Size: Large Weight 264.375 lb Height 66 in Body Mass Index Calculated 42.67 kg/m2 Body Surface Area Calculated 2.25 m2 :08 Temperature 98.4 f Comments: Method: Oral Pulse 88 /min Comments: Pattern: Regular Respiration Rate 18 /min O2 SAT 98 % Comments: Room air BP Systolic 128 mm[Hg] Comments: Patient Position: Sitting; Cuff Location: Left Arm; Cuff Size: Standard BP Diastolic 90 mm[Hg] Comments: Patient Position: Sitting; Cuff Location: Left Arm; Cuff Size: Standard Weight 264.375 lb Height 66 in Body Mass Index Calculated 42.67 kg/m2 Body Surface Area Calculated 2.25 m2 [id number] Temperature 97.9 f Comments: Method: Oral Pulse 70 /min Comments: Pattern: Regular Respiration Rate 18 /min O2 SAT 96 % Comments: Room air BP Systolic 124 mm[Hg] Comments: Patient Position: Sitting; Cuff Location: Left Arm; Cuff Size: Standard BP Diastolic 80 mm[Hg] Comments: Patient Position: Sitting; Cuff Location: Left Arm; Cuff Size: Standard Weight 264.375 lb Height 66 in Body Mass Index Calculated 42.67 kg/m2 Body Surface Area Calculated 2.25 m2 :00 Temperature 98.4 f Comments: Method: Oral Pulse 78 /min Comments: Pattern: Regular O2 SAT 96 % Comments: Room air BP Systolic 118 mm[Hg] Comments: Patient Position: Sitting; Cuff Location: Left Arm; Cuff Size: Standard BP Diastolic 78 mm[Hg] Comments: Patient Position: Sitting; Cuff Location: Left Arm; Cuff Size: Standard Weight 264.375 lb Height 66 in Body Mass Index Calculated 42.67 kg/m2 Body Surface Area Calculated 2.25 m2 :36 Temperature 97.9 f Comments: Method: Oral Pulse 64 /min Comments: Pattern: Regular Respiration Rate 18 /min O2 SAT 96 % Comments: Room air BP Systolic 124 mm[Hg] Comments: Patient Position: Sitting; Cuff Location: Left Arm; Cuff Size: Standard BP Diastolic 70 mm[Hg] Comments: Patient Position: Sitting; Cuff Location: Left Arm; Cuff Size: Standard Weight 264.375 lb Height 66 in Body Mass Index Calculated 42.67 kg/m2 Body Surface Area Calculated 2.25 m2 :59 Comments: I haven't taken my meds yet today Temperature 98.2 f Comments: Method: Oral Pulse 82 /min Comments: Pattern: Regular Respiration Rate 17 /min O2 SAT 98 % Comments: Room air BP Systolic 130 mm[Hg] Comments: Patient Position: Sitting; Cuff Location: Left Arm; Cuff Size: Standard BP Diastolic 84 mm[Hg] Comments: Patient Position: Sitting; Cuff Location: Left Arm; Cuff Size: Standard Weight 264.375 lb Height 66 in Body Mass Index Calculated 42.67 kg/m2 Body Surface Area Calculated 2.25 m2 :05 Temperature 98 f Comments: Method: Oral Pulse 74 /min Comments: Pattern: Regular Respiration Rate 18 /min O2 SAT 96 % Comments: Room air BP Systolic 124 mm[Hg] Comments: Patient Position: Sitting; Cuff Location: Left Arm; Cuff Size: Standard BP Diastolic 82 mm[Hg] Comments: Patient Position: Sitting; Cuff Location: Left Arm; Cuff Size: Standard Weight 262.375 lb Height 66 in Body Mass Index Calculated 42.35 kg/m2 Body Surface Area Calculated 2.24 m2 :26 Temperature 98.4 f Pulse 76 /min Comments: Pattern: Regular Respiration Rate 18 /min Comments: Pattern: Unlabored BP Systolic 110 mm[Hg] Comments: Patient Position: Sitting; Cuff Location: Left Arm; Cuff Size: Large BP Diastolic 90 mm[Hg] Comments: Patient Position: Sitting; Cuff Location: Left Arm; Cuff Size: Large Weight 243 lb Height 66 in Body Mass Index Calculated 39.22 kg/m2 Body Surface Area Calculated 2.17 m2 :58 Temperature 98.6 f Comments: Method: Oral Pulse 80 /min Comments: Pattern: Regular Respiration Rate 17 /min O2 SAT 96 % Comments: Room air BP Systolic 124 mm[Hg] Comments: Patient Position: Sitting; Cuff Location: Left Arm; Cuff Size: Standard BP Diastolic 80 mm[Hg] Comments: Patient Position: Sitting; Cuff Location: Left Arm; Cuff Size: Standard Weight 243 lb Height 66 in Body Mass Index Calculated 39.22 kg/m2 Body Surface Area Calculated 2.17 m2 :13 Temperature 98.9 f Comments: Method: Oral Pulse 76 /min Comments: Pattern: Regular Respiration Rate 20 /min Comments: Pattern: Unlabored BP Systolic 124 mm[Hg] Comments: Patient Position: Sitting; Cuff Location: Left Arm; Cuff Size: Standard BP Diastolic 80 mm[Hg] Comments: Patient Position: Sitting; Cuff Location: Left Arm; Cuff Size: Standard Weight 243 lb Height 66 in Body Mass Index Calculated 39.22 kg/m2 Body Surface Area Calculated 2.17 m2 :11 Temperature 98.2 f Comments: Method: Oral Pulse 78 /min Comments: Pattern: Regular Respiration Rate 18 /min BP Systolic 126 mm[Hg] Comments: Patient Position: Sitting; Cuff Location: Left Arm; Cuff Size: Standard BP Diastolic 80 mm[Hg] Comments: Patient Position: Sitting; Cuff Location: Left Arm; Cuff Size: Standard Weight 243 lb Height 66 in Body Mass Index Calculated 39.22 kg/m2 Body Surface Area Calculated 2.17 m2 :25 Temperature 97.4 f Comments: Method: Temporal Pulse 78 /min Comments: Pattern: Regular Respiration Rate 16 /min Comments: Pattern: Unlabored O2 SAT 98 % Comments: Room air BP Systolic 120 mm[Hg] Comments: Patient Position: Sitting; Cuff Location: Left Arm; Cuff Size: Standard BP Diastolic 80 mm[Hg] Comments: Patient Position: Sitting; Cuff Location: Left Arm; Cuff Size: Standard Weight 243 lb Height 66 in Body Mass Index Calculated 39.22 kg/m2 Body Surface Area Calculated 2.17 m2 :27 Temperature 99.1 f Pulse 72 /min Comments: Pattern: Regular Respiration Rate 18 /min Comments: Pattern: Unlabored BP Systolic 114 mm[Hg] Comments: Patient Position: Sitting; Cuff Location: Left Arm; Cuff Size: Large BP Diastolic 80 mm[Hg] Comments: Patient Position: Sitting; Cuff Location: Left Arm; Cuff Size: Large Weight 243 lb Height 66 in Body Mass Index Calculated 39.22 kg/m2 Body Surface Area Calculated 2.17 m2 :32 Temperature 98 f Pulse 76 /min Comments: Pattern: Regular Respiration Rate 18 /min Comments: Pattern: Unlabored BP Systolic 118 mm[Hg] Comments: Patient Position: Sitting; Cuff Location: Left Arm; Cuff Size: Large BP Diastolic 72 mm[Hg] Comments: Patient Position: Sitting; Cuff Location: Left Arm; Cuff Size: Large Weight 243 lb Height 66 in Body Mass Index Calculated 39.22 kg/m2 Body Surface Area Calculated 2.17 m2 :50 Temperature 101.2 f Comments: Method: Oral Pulse 94 /min Comments: Pattern: Regular Respiration Rate 20 /min O2 SAT 96 % Comments: Room air BP Systolic 146 mm[Hg] Comments: Patient Position: Sitting; Cuff Location: Left Arm; Cuff Size: Standard BP Diastolic 84 mm[Hg] Comments: Patient Position: Sitting; Cuff Location: Left Arm; Cuff Size: Standard Weight 246 lb Height 66 in Body Mass Index Calculated 39.71 kg/m2 Body Surface Area Calculated 2.18 m2 [id number] Temperature 97.8 f Pulse 64 /min Comments: Pattern: Regular Respiration Rate 16 /min Comments: Pattern: Unlabored BP Systolic 120 mm[Hg] Comments: Patient Position: Sitting; Cuff Location: Left Arm; Cuff Size: Large BP Diastolic 90 mm[Hg] Comments: Patient Position: Sitting; Cuff Location: Left Arm; Cuff Size: Large Weight 246 lb Height 66 in Body Mass Index Calculated 39.71 kg/m2 Body Surface Area Calculated 2.18 m2 :21 Temperature 98.2 f Comments: Method: Oral Pulse 68 /min Comments: Pattern: Regular Respiration Rate 18 /min O2 SAT 96 % Comments: Room air BP Systolic 122 mm[Hg] Comments: Patient Position: Sitting; Cuff Location: Left Arm; Cuff Size: Standard BP Diastolic 84 mm[Hg] Comments: Patient Position: Sitting; Cuff Location: Left Arm; Cuff Size: Standard Weight 254 lb Height 66 in Body Mass Index Calculated 41 kg/m2 Body Surface Area Calculated 2.21 m2 :02 Temperature 98.6 f Pulse 76 /min Comments: Pattern: Regular Respiration Rate 18 /min Comments: Pattern: Unlabored BP Systolic 110 mm[Hg] Comments: Patient Position: Sitting; Cuff Location: Left Arm; Cuff Size: Large BP Diastolic 84 mm[Hg] Comments: Patient Position: Sitting; Cuff Location: Left Arm; Cuff Size: Large Weight 254 lb Height 66 in Body Mass Index Calculated 41 kg/m2 Body Surface Area Calculated 2.21 m2 :21 Temperature 98.3 f Pulse 76 /min Comments: Pattern: Regular Respiration Rate 18 /min Comments: Pattern: Unlabored BP Systolic 136 mm[Hg] Comments: Patient Position: Sitting; Cuff Location: Left Arm; Cuff Size: Large BP Diastolic 94 mm[Hg] Comments: Patient Position: Sitting; Cuff Location: Left Arm; Cuff Size: Large Weight 254 lb Height 66 in Body Mass Index Calculated 41 kg/m2 Body Surface Area Calculated 2.21 m2 Results Date Description Value Details [id number] RHEUMATOID FACTOR-QUANT Comments: send copy to Dr. Fraser - [phone]; A courtesy copy of this report has been sent [phone].PATIENT NOT FASTINGPERFORMED BY: [facility] [id number] [facility] [id number] ([id number]) RA Latex Turbid. <10.0 {IU/mL} (Normal) Range: 0.0-13.9 :39 IMMUNOFIXATION, SERUM (63941) Comments: send copy to Dr. 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 :39 HIV-1 ANTIBODY ([id number]) Comments: send copy to Dr. Evelio Kaur [phone]; A courtesy copy of this report has been sent [phone].PATIENT NOT FASTINGPERFORMED BY: [facility] [id number] HIV Screen 4th Generation wRfx Non Reactive (Normal) :39 HEPATITIS C ANTIBODY (36152) Comments: send copy to Dr. Evelio Kaur [phone]; A courtesy copy of this report has been sent [phone].PATIENT NOT FASTINGPERFORMED BY: [facility] [id number] Hep C Virus Ab <0.1 {s/co_ratio} (Normal) Range: 0.0-0.9 Comments: Negative: < 0.8 Indeterminate: 0.8 - 0.9 Positive: > 0.9 . The CDC recommends that a positive HCV antibody result be followed up with a HCV Nucleic Acid Amplification test (760585). :39 FOLIC ACID SERUM (58940) Comments: send copy to Dr. Evelio Kaur [phone]; A courtesy copy of this report has been sent [phone].PATIENT NOT FASTINGPERFORMED BY: [facility] [place] [id number] Folate (Folic Acid), Serum 14.3 ng/mL (Normal) Comments: A serum folate concentration of less than 3.1 ng/mL isconsidered to represent clinical deficiency. [id number] ANTIEXTARACT NUCLEAR AG 6338 Comments: send copy to Dr. 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 Evelio Kaur [phone]; A courtesy copy of this report has been sent [phone].PATIENT NOT FASTINGPERFORMED BY: [facility] [place] [id number] ([id number]) LOLITA Direct Negative (Normal) 25-Jul-20189:13 Vitamin B-12 (cyanocobalamin) Comments: PATIENT WAS FASTINGPERFORMED BY: [facility] [place] [id number] (96910) Vitamin B12 341 pg/mL (Normal) Range: 232-1245 25-Jul-20189:13 CBC with auto diff (47642) Comments: PATIENT WAS FASTINGPERFORMED BY: [facility] [place] [id number]; appt 12/7 Immature Grans (Abs) 0.0 {x10E3/uL} (Normal) Range: 0.0-0.1 Immature Granulocytes 0 % (Normal) Baso (Absolute) 0.0 {x10E3/uL} (Normal) Range: 0.0-0.2 Eos (Absolute) 0.2 {x10E3/uL} (Normal) Range: 0.0-0.4 Monocytes(Absolute) 0.3 {x10E3/uL} (Normal) Range: 0.1-0.9 Lymphs (Absolute) 2.4 {x10E3/uL} (Normal) Range: 0.7-3.1 Neutrophils (Absolute) 4.2 {x10E3/uL} (Normal) Range: 1.4-7.0 Basos 1 % (Normal) Eos 2 % (Normal) Monocytes 5 % (Normal) Lymphs 33 % (Normal) Neutrophils 59 % (Normal) Platelets 223 {x10E3/uL} (Normal) Range: 150-379 RDW 14.6 % (Normal) Range: 12.3-15.4 MCHC 32.2 g/dL (Normal) Range: 31.5-35.7 MCH 27.7 pg (Normal) Range: 26.6-33.0 MCV 86 fL (Normal) Range: 79-97 Hematocrit 42.6 % (Normal) Range: 34.0-46.6 Hemoglobin 13.7 g/dL (Normal) Range: 11.1-15.9 RBC 4.95 {x10E6/uL} (Normal) Range: 3.77-5.28 WBC 7.2 {x10E3/uL} (Normal) Range: 3.4-10.8 25-Jul-20189:13 METABOLIC PANEL, COMPREHENSIVE Comments: PATIENT WAS FASTINGPERFORMED BY: [facility]6370 [facility] [id number] (96530) ALT (SGPT) 19 [iU]/L (Normal) Range: 0-32 AST (SGOT) 21 [iU]/L (Normal) Range: 0-40 Alkaline Phosphatase 79 [iU]/L (Normal) Range: 39-117 Bilirubin, Total 0.4 mg/dL (Normal) Range: 0.0-1.2 A/G Ratio 2.0 (Normal) Range: 1.2-2.2 Globulin, Total 2.3 g/dL (Normal) Range: 1.5-4.5 Albumin 4.7 g/dL (Normal) Range: 3.5-5.5 Protein, Total 7.0 g/dL (Normal) Range: 6.0-8.5 Calcium 9.4 mg/dL (Normal) Range: 8.7-10.2 Carbon Dioxide, Total 21 mmol/L (Normal) Range: 20-29 Chloride 106 mmol/L (Normal) Range: 96-106 Potassium 4.4 mmol/L (Normal) Range: 3.5-5.2 Sodium 145 mmol/L (Abnormal) Range: 134-144 BUN/Creatinine Ratio 27 (Abnormal) Range: 9-23 eGFR If Africn Am 93 mL/min/1.73 (Normal) eGFR If NonAfricn Am 81 mL/min/1.73 (Normal) Creatinine 0.83 mg/dL (Normal) Range: 0.57-1.00 BUN 22 mg/dL (Normal) Range: 6-24 Glucose 80 mg/dL (Normal) Range: 65-99 25-Jul-20189:13 GAMLN-WDDZNXAQBOI-WGQYP (46043) Comments: PATIENT WAS FASTINGPERFORMED BY: [place] [id number] AFP, Serum, Tumor Marker 3.6 ng/mL (Normal) Range: 0.0-8.3 Comments: [employer] ECLIA methodology 32-Mxm-307394:05 URINE KENROY CULTURE-IDENTIFICATN Comments: PATIENT NOT FASTINGPERFORMED BY: [facility] [place] [id number] Information: SRC:UC (01944) Result 1 MUG (Normal) Comments: Mixed urogenital flora1,000 Colonies/mL Urine Culture,Comprehensive Final report (Normal) 91-Nma-922115:56 Urinalysis, Office (20371) UA - LEUKOCYTE ESTERASE Trace (Normal) UA - NITRITE Negative (Normal) URINE UROBILINGN JUAN TIMED Normal mg/dL (Normal) UA - PROTEIN Trace mg/dL (Normal) UA - PH 5 (Abnormal) UA - BLOOD Negative (Normal) UA - SPECIFIC GRAVITY 1.030 (Abnormal) UA - KETONES Negative mg/dL (Normal) UA - BILIRUBIN Small (Normal) UA - GLUCOSE Negative (Normal) 72-Qet-015890:28 CBC, PLATELETS & AUT DIFF Comments: PATIENT WAS FASTINGPERFORMED BY: [facility] [place] [id number] (18505) Immature Grans (Abs) 0.0 {x10E3/uL} (Normal) Range: 0.0-0.1 Immature Granulocytes 0 % (Normal) Baso (Absolute) 0.0 {x10E3/uL} (Normal) Range: 0.0-0.2 Eos (Absolute) 0.2 {x10E3/uL} (Normal) Range: 0.0-0.4 Monocytes(Absolute) 0.3 {x10E3/uL} (Normal) Range: 0.1-0.9 Lymphs (Absolute) 2.5 {x10E3/uL} (Normal) Range: 0.7-3.1 Neutrophils (Absolute) 3.8 {x10E3/uL} (Normal) Range: 1.4-7.0 Basos 0 % (Normal) Eos 3 % (Normal) Monocytes 5 % (Normal) Lymphs 37 % (Normal) Neutrophils 55 % (Normal) Platelets 241 {x10E3/uL} (Normal) Range: 150-379 RDW 14.9 % (Normal) Range: 12.3-15.4 MCHC 32.5 g/dL (Normal) Range: 31.5-35.7 MCH 27.6 pg (Normal) Range: 26.6-33.0 MCV 85 fL (Normal) Range: 79-97 Hematocrit 40.6 % (Normal) Range: 34.0-46.6 Hemoglobin 13.2 g/dL (Normal) Range: 11.1-15.9 RBC 4.78 {x10E6/uL} (Normal) Range: 3.77-5.28 WBC 6.8 {x10E3/uL} (Normal) Range: 3.4-10.8 56-Dve-160388:28 VITAMIN B-12 (CYANOCOBALAMIN) Comments: PATIENT WAS FASTINGPERFORMED BY: [facility] Vrqecx2479 [facility] [place] [id number] (99784) Vitamin B12 413 pg/mL (Normal) Range: 232-1245 24-Vow-193254:28 Vitamin D Hydroxy (62949) Comments: PATIENT WAS FASTINGPERFORMED BY: [facility] Ppajke2997 [facility] [place] [id number] Vitamin D, 25-Hydroxy 52.6 ng/mL (Normal) Range: 30.0-100.0 Comments: Vitamin D deficiency has been defined by the [place] ofMedicine and an Endocrine Society practice guideline as alevel of serum 25-OH vitamin D less than 20 ng/mL (1,2).The Endocrine Society went on to further define vitamin Dinsufficiency as a level between 21 and 29 ng/mL (2).1. IOM ([place] of Medicine). 2010. Dietary reference intakes for calcium and D. [place]: The National Academies Press.2. Myla MF, Javier STUART, Panfilo MANN, et al. Evaluation, treatment, and prevention of vitamin D deficiency: an Endocrine Society clinical practice guideline. JCEM. 2010; 96(7):1911-30. 77-Riy-511561:28 LIPID PANEL (38403) Comments: PATIENT WAS FASTINGPERFORMED BY: [employer]70 [facility] [id number] LDL/HDL Ratio 1.3 {ratio} (Normal) Range: 0.0-3.2 Comments: LDL/HDL Ratio Men Women 1/2 Avg.Risk 1.0 1.5 Av g.Risk 3.6 3.2 2X Avg.Risk 6.2 5.0 3X Avg.Risk 8.0 6.1 LDL Cholesterol Calc 51 mg/dL (Normal) Range: 0-99 VLDL Cholesterol [place] 11 mg/dL (Normal) Range: 5-40 HDL Cholesterol 38 mg/dL (Abnormal) Triglycerides 55 mg/dL (Normal) Range: 0-149 Cholesterol, Total 100 mg/dL (Normal) Range: 100-199 22-Owm-565333:38 HgA1C , Office (30932) HgA1C , Office 6.1 % (Normal) Range: 4.6 - 7.1 24-Gwq-720749:28 HGB A1C (37781) Comments: PATIENT WAS FASTINGPERFORMED BY: [employer]70 [place] [facility] [id number] Hemoglobin A1c 5.6 % (Normal) Range: 4.8-5.6 Comments: . Prediabetes: 5.7 - 6.4 Diabetes: >6.4 Glycemic control for adults with diabetes: <7.0 87-Jcp-015439:28 DMEWC-IOAKYHXYBAJ-NTHXL (44173) Comments: PATIENT WAS FASTINGPERFORMED BY: Cer[employer] NetworksCoGallup Indian Medical CenterVvegzf9432 [facility] [id number] AFP, Serum, Tumor Marker 3.6 ng/mL (Normal) Range: 0.0-8.3 Comments: Ozzie ECLIA methodology :28 MICROALBUMIN: CREATININE RATIO Comments: PATIENT WAS FASTINGPERFORMED BY: Ceragon NetworksTexas [facility] Hospital Zgbrrz8155 [facility] [id number] (48879) AND (17139) Alb/Creat Ratio 4.1 {mg/g_creat} (Normal) Range: 0.0-30.0 Albumin, Urine 5.8 ug/mL (Normal) Creatinine, Urine 139.9 mg/dL (Normal) :28 METABOLIC PANEL, COMPREHENSIVE Comments: PATIENT WAS FASTINGPERFORMED BY: iDiDiD Prwzjm4829 [facility] [id number]; review at 05/07 appt (52407) ALT (SGPT) 19 [iU]/L (Normal) Range: 0-32 AST (SGOT) 18 [iU]/L (Normal) Range: 0-40 Alkaline Phosphatase 68 [iU]/L (Normal) Range: 39-117 Bilirubin, Total 0.4 mg/dL (Normal) Range: 0.0-1.2 A/G Ratio 1.8 (Normal) Range: 1.2-2.2 Globulin, Total 2.5 g/dL (Normal) Range: 1.5-4.5 Albumin 4.5 g/dL (Normal) Range: 3.5-5.5 Protein, Total 7.0 g/dL (Normal) Range: 6.0-8.5 Calcium 9.5 mg/dL (Normal) Range: 8.7-10.2 Carbon Dioxide, Total 24 mmol/L (Normal) Range: 20-29 Chloride 104 mmol/L (Normal) Range: 96-106 Potassium 4.7 mmol/L (Normal) Range: 3.5-5.2 Sodium 144 mmol/L (Normal) Range: 134-144 BUN/Creatinine Ratio 22 (Normal) Range: 9-23 eGFR If Africn Am 95 mL/min/1.73 (Normal) eGFR If NonAfricn Am 83 mL/min/1.73 (Normal) Creatinine 0.82 mg/dL (Normal) Range: 0.57-1.00 BUN 18 mg/dL (Normal) Range: 6-24 Glucose 81 mg/dL (Normal) Range: 65-99 :21 LIPID PANEL (91850) Comments: PATIENT WAS FASTINGPERFORMED BY: [employer]6370 [facility] [id number] LDL/HDL Ratio 1.6 {ratio} (Normal) Range: 0.0-3.2 Comments: LDL/HDL Ratio Men Women 1/2 Avg.Risk 1.0 1.5 Av g.Risk 3.6 3.2 2X Avg.Risk 6.2 5.0 3X Avg.Risk 8.0 6.1 LDL Cholesterol Calc 75 mg/dL (Normal) Range: 0-99 VLDL Cholesterol [place] 19 mg/dL (Normal) Range: 5-40 HDL Cholesterol 46 mg/dL (Normal) Triglycerides 93 mg/dL (Normal) Range: 0-149 Cholesterol, Total 140 mg/dL (Normal) Range: 100-199 :21 CBC W/AUTO DIFF WBC (24164) Comments: PATIENT WAS FASTINGPERFORMED BY: [employer]6370 [facility] [id number]; review on 01/31 Immature Grans (Abs) 0.0 {x10E3/uL} (Normal) Range: 0.0-0.1 Immature Granulocytes 0 % (Normal) Baso (Absolute) 0.0 {x10E3/uL} (Normal) Range: 0.0-0.2 Eos (Absolute) 0.2 {x10E3/uL} (Normal) Range: 0.0-0.4 Monocytes(Absolute) 0.4 {x10E3/uL} (Normal) Range: 0.1-0.9 Lymphs (Absolute) 3.2 {x10E3/uL} (Abnormal) Range: 0.7-3.1 Neutrophils (Absolute) 6.5 {x10E3/uL} (Normal) Range: 1.4-7.0 Basos 0 % (Normal) Eos 2 % (Normal) Monocytes 4 % (Normal) Lymphs 31 % (Normal) Neutrophils 63 % (Normal) Platelets 248 {x10E3/uL} (Normal) Range: 150-379 RDW 14.7 % (Normal) Range: 12.3-15.4 MCHC 32.9 g/dL (Normal) Range: 31.5-35.7 MCH 27.0 pg (Normal) Range: 26.6-33.0 MCV 82 fL (Normal) Range: 79-97 Hematocrit 42.0 % (Normal) Range: 34.0-46.6 Hemoglobin 13.8 g/dL (Normal) Range: 11.1-15.9 RBC 5.12 {x10E6/uL} (Normal) Range: 3.77-5.28 WBC 10.4 {x10E3/uL} (Normal) Range: 3.4-10.8 23-Jan-20188:21 METABOLIC PANEL, COMPREHENSIVE Comments: PATIENT WAS FASTINGPERFORMED BY: [facility]6370 [facility] [id number] (96213) ALT (SGPT) 18 [iU]/L (Normal) Range: 0-32 AST (SGOT) 17 [iU]/L (Normal) Range: 0-40 Alkaline Phosphatase 84 [iU]/L (Normal) Range: 39-117 Bilirubin, Total 0.4 mg/dL (Normal) Range: 0.0-1.2 A/G Ratio 1.7 (Normal) Range: 1.2-2.2 Globulin, Total 2.6 g/dL (Normal) Range: 1.5-4.5 Albumin 4.4 g/dL (Normal) Range: 3.5-5.5 Protein, Total 7.0 g/dL (Normal) Range: 6.0-8.5 Calcium 9.3 mg/dL (Normal) Range: 8.7-10.2 Carbon Dioxide, Total 26 mmol/L (Normal) Range: 18-29 Comments: Effective January 29, 2018 Carbon Dioxide, Total reference interval will be changing to: Age Male Female 0 days - 30 days 16 - 29 16 - 29 31 days - 1 year 15 - 25 15 - 25 2 years - 5 years 17 - 26 17 - 26 6 y ears - 12 years 19 - 27 19 - 27 >12 years 20 - 29 20 - 29 Chloride 103 mmol/L (Normal) Range: 96-106 Potassium 4.6 mmol/L (Normal) Range: 3.5-5.2 Sodium 143 mmol/L (Normal) Range: 134-144 BUN/Creatinine Ratio 18 (Normal) Range: 9-23 eGFR If Africn Am 103 mL/min/1.73 (Normal) eGFR If NonAfricn Am 89 mL/min/1.73 (Normal) Creatinine 0.77 mg/dL (Normal) Range: 0.57-1.00 BUN 14 mg/dL (Normal) Range: 6-24 Glucose 98 mg/dL (Normal) Range: 65-99 52-Ymy-838814:22 TSH (19657) Comments: PATIENT NOT FASTINGPERFORMED BY: [facility] Sfjhud7534 [place] RoadDublin [place] [id number] TSH 1.150 {uIU/mL} (Normal) Range: 0.450-4.500 83-Gil-850923:22 SED RATE ERYTHROCYTE (53062) Comments: PATIENT NOT FASTINGPERFORMED BY: [facility] Qwrhtl8906 [address] Roadblin [place] [id number] Sedimentation Rate-[facility] Hospitalren 8 mm/h (Normal) Range: 0-40 89-Djv-205802:22 C-REACTIVE PROTEIN (10013) Comments: PATIENT NOT FASTINGPERFORMED BY: CB [facility] Irzpgr1630 [address] [facility] SurgeryStreamline Computingblin [place] [id number] C-Reactive Protein, Quant 2.5 mg/L (Normal) Range: 0.0-4.9 53-Kvb-696001:22 LOLITA (ANTINUCLEAR ANTIBODY) Comments: PATIENT NOT FASTINGPERFORMED BY: [facility] Zfqprv9259 [address] RoadDublin [place] [id number] (30173) LOLITA Direct Negative (Normal) 14-Jna-691723:22 VITAMIN B-12 (CYANOCOBALAMIN) Comments: PATIENT NOT FASTINGPERFORMED BY: CB [facility] Tohonk7295 [address] [facility] Children[facility] [place] [id number] (06081) Vitamin B12 340 pg/mL (Normal) Range: 232-1245 61-Cxi-100766:22 IRON (17601) Comments: PATIENT NOT FASTINGPERFORMED BY: [facility] Llrnzn4589 [address] [facility] Childrenbl[facility] [place] [id number] Iron, Serum 57 ug/dL (Normal) Range: 27-159 02-Pak-401847:22 FERRITIN (40665) Comments: PATIENT NOT FASTINGPERFORMED BY: iDiDiD Mrymop7525 [facility] Centerblin [place] [id number] Ferritin, Serum 220 ng/mL (Abnormal) Range: 15-150 70-Eju-355145:27 Albumin/Creatinine Comments: PATIENT WAS FASTINGPERFORMED BY: iDiDiD Tshkck3379 [facility] [id number] BY: iDiDiDScott V[place] 351667 [facility] [id number] Ratio,Urine Alb/Creat Ratio 5.5 {mg/g_creat} (Normal) Range: 0.0-30.0 Albumin, Urine 9.6 ug/mL (Normal) Creatinine, Urine 176.1 mg/dL (Normal) 62-Gpn-471022:27 Vitamin D Hydroxy Comments: PATIENT WAS FASTINGPERFORMED BY: iDiDiD Avvcnn3222 [facility] [id number] BY: iDiDiD[place] 351667 [facility] [id number] (07094) Vitamin D, 25-Hydroxy 44.1 ng/mL (Normal) Range: 30.0-100.0 Comments: Vitamin D deficiency has been defined by the [place] ofMedicine and an Endocrine Society practice guideline as alevel of serum 25-OH vitamin D less than 20 ng/mL (1,2).The Endocrine Society went on to further define vitamin Dinsufficiency as a level between 21 and 29 ng/mL (2).1. IOM ([place] of Medicine). 2010. Dietary reference intakes for calcium and D. [place]: The National Academies Press.2. Myla MF, Javier NC, Panfilo MANN, et al. Evaluation, treatment, and prevention of vitamin D deficiency: an Endocrine Society clinical practice guideline. JCEM. 2010; 96(7):1911-30. 02-Bno-471115:27 HGB A1C (88085) Comments: PATIENT WAS FASTINGPERFORMED BY: iDiDiD Nvkkdi3498 [facility] [id number] BY: [employer] [id number] Hemoglobin A1c 5.7 % (Abnormal) Range: 4.8-5.6 Comments: . Pre-diabetes: 5.7 - 6.4 Diabetes: >6.4 Glycemic control for adults with diabetes: <7.0 30-Dmg-177552:27 BISHS-EMFNSEOCMSW-RGDKZ (48865) Comments: PATIENT WAS FASTINGPERFORMED BY: iDiDiDMichael [place] 6844470 [facility] [id number] BY: iDiDiD[address] [id number] AFP, Serum, Tumor Marker 4.0 ng/mL (Normal) Range: 0.0-8.3 Comments: Ozzie ECLIA methodology 40-Msy-047614:27 METABOLIC PANEL, Comments: PATIENT WAS FASTINGPERFORMED BY: mGaadi Yamzgj3226 [facility] [id number] BY: iDiDiD[address] [id number] [facility] (30730) ALT (SGPT) 21 [iU]/L (Normal) Range: 0-32 AST (SGOT) 19 [iU]/L (Normal) Range: 0-40 Alkaline Phosphatase, S 65 [iU]/L (Normal) Range: 39-117 Bilirubin, Total 0.4 mg/dL (Normal) Range: 0.0-1.2 A/G Ratio 1.7 (Normal) Range: 1.2-2.2 Globulin, Total 2.6 g/dL (Normal) Range: 1.5-4.5 Albumin, Serum 4.4 g/dL (Normal) Range: 3.5-5.5 Protein, Total, Serum 7.0 g/dL (Normal) Range: 6.0-8.5 Calcium, Serum 9.1 mg/dL (Normal) Range: 8.7-10.2 Carbon Dioxide, Total 22 mmol/L (Normal) Range: 18-29 Chloride, Serum 108 mmol/L (Abnormal) Range: 96-106 Potassium, Serum 4.2 mmol/L (Normal) Range: 3.5-5.2 Sodium, Serum 146 mmol/L (Abnormal) Range: 134-144 BUN/Creatinine Ratio 14 (Normal) Range: 9-23 eGFR If Africn Am 78 mL/min/1.73 (Normal) eGFR If NonAfricn Am 67 mL/min/1.73 (Normal) Creatinine, Serum 0.97 mg/dL (Normal) Range: 0.57-1.00 BUN 14 mg/dL (Normal) Range: 6-24 Glucose, Serum 84 mg/dL (Normal) Range: 65-99 89-Nss-432144:27 CBC with auto diff Comments: PATIENT WAS FASTINGPERFORMED BY: CB [facility] Asfxon3098 [facility] [id number] BY: BN [facility] Aimplvmmjc6034 [facility] [id number] (31612) Immature Grans (Abs) 0.0 {x10E3/uL} (Normal) Range: 0.0-0.1 Immature Granulocytes 0 % (Normal) Baso (Absolute) 0.0 {x10E3/uL} (Normal) Range: 0.0-0.2 Eos (Absolute) 0.1 {x10E3/uL} (Normal) Range: 0.0-0.4 Monocytes(Absolute) 0.3 {x10E3/uL} (Normal) Range: 0.1-0.9 Lymphs (Absolute) 2.7 {x10E3/uL} (Normal) Range: 0.7-3.1 Neutrophils (Absolute) 4.5 {x10E3/uL} (Normal) Range: 1.4-7.0 Basos 0 % (Normal) Eos 2 % (Normal) Monocytes 4 % (Normal) Lymphs 35 % (Normal) Neutrophils 59 % (Normal) Platelets 245 {x10E3/uL} (Normal) Range: 150-379 RDW 15.5 % (Abnormal) Range: 12.3-15.4 MCHC 31.9 g/dL (Normal) Range: 31.5-35.7 MCH 26.4 pg (Abnormal) Range: 26.6-33.0 MCV 83 fL (Normal) Range: 79-97 Hematocrit 39.8 % (Normal) Range: 34.0-46.6 Hemoglobin 12.7 g/dL (Normal) Range: 11.1-15.9 RBC 4.81 {x10E6/uL} (Normal) Range: 3.77-5.28 WBC 7.7 {x10E3/uL} (Normal) Range: 3.4-10.8 20-Zvw-963554:27 LIPID PANEL (86372) Comments: PATIENT WAS FASTINGPERFORMED BY: [address] [id number] BY: [address] [id number] LDL/HDL Ratio 1.5 {ratio_units} (Normal) Range: 0.0-3.2 Comments: LDL/HDL Ratio Men Women 1/2 Avg.Risk 1.0 1.5 Av g.Risk 3.6 3.2 2X Avg.Risk 6.2 5.0 3X Avg.Risk 8.0 6.1 LDL Cholesterol Calc 69 mg/dL (Normal) Range: 0-99 VLDL Cholesterol [place] 17 mg/dL (Normal) Range: 5-40 HDL Cholesterol 46 mg/dL (Normal) Triglycerides 85 mg/dL (Normal) Range: 0-149 Cholesterol, Total 132 mg/dL (Normal) Range: 100-199 97-Ugx-965968:27 IGA/IGD/IGG/IGM-EACH (87618) Comments: PATIENT WAS FASTINGPERFORMED BY: [address] [id number] BY: [address] [id number] Immunoglobulin E, Total 18 {IU/mL} (Normal) Range: 0-100 Immunoglobulin M, Qn, Serum 43 mg/dL (Normal) Range: 26-217 Immunoglobulin A, Qn, Serum 332 mg/dL (Normal) Range: 87-352 Immunoglobulin G, Qn, Serum 848 mg/dL (Normal) Range: 700-1600 2-Ull-351219:23 METABOLIC PANEL, COMPREHENSIVE Comments: PATIENT NOT FASTINGPERFORMED BY: [address] [id number] (05165) ALT (SGPT) 16 [iU]/L (Normal) Range: 0-32 AST (SGOT) 16 [iU]/L (Normal) Range: 0-40 Alkaline Phosphatase, S 83 [iU]/L (Normal) Range: 39-117 Bilirubin, Total 0.3 mg/dL (Normal) Range: 0.0-1.2 A/G Ratio 1.6 (Normal) Range: 1.2-2.2 Globulin, Total 2.7 g/dL (Normal) Range: 1.5-4.5 Albumin, Serum 4.4 g/dL (Normal) Range: 3.5-5.5 Protein, Total, Serum 7.1 g/dL (Normal) Range: 6.0-8.5 Calcium, Serum 9.1 mg/dL (Normal) Range: 8.7-10.2 Carbon Dioxide, Total 23 mmol/L (Normal) Range: 18-29 Chloride, Serum 103 mmol/L (Normal) Range: 96-106 Potassium, Serum 4.8 mmol/L (Normal) Range: 3.5-5.2 Sodium, Serum 144 mmol/L (Normal) Range: 134-144 BUN/Creatinine Ratio 14 (Normal) Range: 9-23 eGFR If Africn Am 98 mL/min/1.73 (Normal) eGFR If NonAfricn Am 85 mL/min/1.73 (Normal) Creatinine, Serum 0.80 mg/dL (Normal) Range: 0.57-1.00 BUN 11 mg/dL (Normal) Range: 6-24 Glucose, Serum 92 mg/dL (Normal) Range: 65-99 52-Nof-007709:10 RUBEOLA IgG (07933) Comments: PATIENT NOT FASTINGPERFORMED BY: iDiDiD [employer] [place] [facility] [id number] Rubeola Ab, IgG 44.9 AU/mL (Normal) Comments: Negative <25.0 Equivocal 25.0 - 29.9 Positive >29.9 Presence of antibodies to Rubeola is presumptive evidence of immunity except when acute infection is suspected. 94-Lsd-590917:10 RUBELLA IgG (03127) Comments: PATIENT NOT FASTINGPERFORMED BY: YoujiaInspira Medical Center WoodburyQogzki5840 [facility] [id number] Rubella Antibodies, IgG 17.40 {index} (Normal) Comments: Non-immune <0.90 Equivocal 0.90 - 0.99 Immune >0.99 85-Efv-846148:10 MUMPS IgG (37280) Comments: PATIENT NOT FASTINGPERFORMED BY: [address] [id number] Mumps Abs, IgG >300.0 AU/mL (Normal) Comments: Negative <9.0 Equivocal 9.0 - 10.9 Positive >10.9 A positive result genera lly indicates past exposure to Mumps virus or previous vaccination. 2-Oeo-222365:23 HEPATITIS C ANTIBODY (16047) Comments: PATIENT NOT FASTINGPERFORMED BY: [address] [id number] Hep C Virus Ab 0.1 {s/co_ratio} (Normal) Range: 0.0-0.9 Comments: Negative: < 0.8 Indeterminate: 0.8 - 0.9 Positive: > 0.9 . The CDC recommends that a positive HCV antibody result be followed up with a HCV Nucleic Acid Amplification test (767610). :07 AFP, Tumor Marker Comments: Is [facility] ? [facility] (refer to report for specific site)refer to report for address and phone number AFP TUMOR 2253 3.9 ng/mL (Normal) Range: 0.0-8.3 Comments: Ozzie ECLIA methodologyPerformed at: [address] [id number] Director: Harjinder Houston PhD, Phone: [phone] 96-Nwi-893410:07 Comprehensive Metabolic Profil Comments: [facility] Moyspqwpgz7442 [address] [place], [place], [id number] GAP 6 (Normal) Range: 5-15 CO2 27.0 mmol/L (Normal) Range: 21.0-32.0 CL 106 mmol/L (Normal) Range: 98-107 K 3.6 mmol/L (Normal) Range: 3.5-5.1 NA 139 mmol/L (Normal) Range: 136-145 T BILI 0.50 mg/dL (Normal) Range: 0.20-1.00 ALT 53 U/L (Normal) Range: 12-78 ALK P 92 U/L (Normal) Range: 45-117 AST 15 U/L (Normal) Range: 15-37 CA 8.9 mg/dL (Normal) Range: 8.5-10.1 A/G 1.2 {RATIO} (Normal) Range: 0.9-2.4 GLOB 3.5 g/dL (Normal) Range: 2.3-3.5 ALB 4.1 g/dL (Normal) Range: 3.4-5.0 T PROT 7.6 g/dL (Normal) Range: 6.4-8.2 BUN/CRE 16.9 {RATIO} (Normal) Range: 10-20 EST GFR - AA 111 mL/min (Normal) Comments: GFR Calc EST GFR 92 mL/min (Normal) Comments: Non- GFR Calc CREAT,SERUM 0.71 mg/dL (Normal) Range: 0.55-1.02 Comments: The validity of the calculated GFR AND GFRAA in patients over70 years has not been determined. Clinical correlation isessential. BUN 12 mg/dL (Normal) Range: 7-18 GLU 80 mg/dL (Normal) Range: 70-110 [id number]-Ewd-[id number]:07 Hemoglobin A1c Comments: [facility] [id number] [facility]. [place], [place], [address] HGB A1C 5.9 % (Normal) Range: 4.2-6.3 90-Lgo-[id number]:07 Lipid Profile Comments: [facility] [id number] [facility]. [place], [place], [address] VLDL 18 mg/dL (Normal) Range: 5-40 LDL 82 mg/dL (Normal) Range: 0-130 HDL 50 mg/dL (Normal) Comments: The drugs N-Acetylcysteine and Metamizole may falsely deressthis assay. Reference Range HDL <40 mg/dL Low HDL Cholesterol HDL >or= 60 mg/dL High HDL Cholesterol TRIG 91 mg/dL (Normal) Comments: The drugs N-Acetylcysteine and Metamizole may falsely deressthis assay.Serum Triglycerides Reference Interval Normal <150 mg/dL Borderline high 150 - 199 mg/dL High 200 - 499 mg/dL Very High > or = 500 mg/dL CHOL 150 mg/dL (Normal) Comments: <200 mg/dL Desirable 200-240 mg/dL Borderline >240 mg/dL High Risk [id number] Thyroid Stim Hormone (TSH) Comments: [facility] [id number] [place], [id number] TSH 1.11 {uIU/mL} (Normal) Range: 0.358-3.74 :07 Vitamin B12 401 pg/mL (Normal) Comments: [facility] [id number] [place], [id number] Range: 211-911 [id number]-Jak-[id number]:07 Vitamin D,25 Hydroxy Comments: [facility] [id number] [place], [address] Vitamin D 25-OH 37.7 ng/mL (Normal) Comments: Vitamin D 25(OH) Status Range Deficiency <20 ng/mL (50nmol/L) Insuffciency 20 - 30 ng/mL (50 - 75 nmol/L) Sufficiency 30 - 100 ng/mL (75 - 250 nmol/L) Toxicity >100 ng/mL (>250 nmol/L) [id number]-Sbg-[id number]:54 TSH ([id number]) Comments: PATIENT WAS FASTINGPERFORMED BY: [facility] [id number] [place] [id number] TSH 1.440 {uIU/mL} (Normal) Range: 0.450-4.500 96-Ycg-508616:54 VITAMIN B-12 (CYANOCOBALAMIN) Comments: PATIENT WAS FASTINGPERFORMED BY: [facility] [id number] [place] [id number] ([id number]) Vitamin B12 273 pg/mL (Normal) Range: 211-946 9-Njk-145725:47 Vitamin D Hydroxy Comments: PATIENT WAS FASTINGPERFORMED BY: [facility] [id number] [facility] [id number] BY: [facility] [place] [place] [id number] ([id number]) Vitamin D, 25-Hydroxy 29.6 ng/mL (Abnormal) Range: 30.0-100.0 Comments: Vitamin D deficiency has been defined by the [place] [employer] and an Endocrine Society practice guideline as alevel of serum 25-OH vitamin D less than 20 ng/mL (1,2).The Endocrine Society went on to further define vitamin Dinsufficiency as a level between 21 and 29 ng/mL (2).1. IOM ([employer]). 2010. Dietary reference intakes for calcium and D. [place]: The National Academies Press.2. Myla MF, Javier STUART, Panfilo MANN, et al. Evaluation, treatment, and prevention of vitamin D deficiency: an Endocrine Society clinical practice guideline. JCEM. 2010; 96(7):1911-30. 6-Plp-827493:47 METABOLIC PANEL, Comments: PATIENT WAS FASTINGPERFORMED BY: BN [facility] Kfuoqrsuhb9917 [facility] [id number] BY: CB [facility] Oiwljb9377 [facility] [id number] COMPREHENSIVE (99784) ALT (SGPT) 21 [iU]/L (Normal) Range: 0-32 AST (SGOT) 19 [iU]/L (Normal) Range: 0-40 Alkaline Phosphatase, S 83 [iU]/L (Normal) Range: 39-117 Bilirubin, Total 0.5 mg/dL (Normal) Range: 0.0-1.2 A/G Ratio 1.8 (Normal) Range: 1.2-2.2 Comments: Please note reference interval change Globulin, Total 2.5 g/dL (Normal) Range: 1.5-4.5 Albumin, Serum 4.4 g/dL (Normal) Range: 3.5-5.5 Protein, Total, Serum 6.9 g/dL (Normal) Range: 6.0-8.5 Calcium, Serum 9.0 mg/dL (Normal) Range: 8.7-10.2 Carbon Dioxide, Total 23 mmol/L (Normal) Range: 18-29 Chloride, Serum 105 mmol/L (Normal) Range: 96-106 Potassium, Serum 4.2 mmol/L (Normal) Range: 3.5-5.2 Sodium, Serum 144 mmol/L (Normal) Range: 134-144 BUN/Creatinine Ratio 16 (Normal) Range: 9-23 Comments: Please note reference interval change eGFR If Africn Am 103 mL/min/1.73 (Normal) eGFR If NonAfricn Am 90 mL/min/1.73 (Normal) Creatinine, Serum 0.77 mg/dL (Normal) Range: 0.57-1.00 BUN 12 mg/dL (Normal) Range: 6-24 Glucose, Serum 87 mg/dL (Normal) Range: 65-99 7-Sua-751074:47 LIPOPROTEIN, BLD, BY NMR Comments: PATIENT WAS FASTINGPERFORMED BY: BN [facility] Aeoosjmbkz2921 [facility] [id number] BY: CB [facility] Ivlymu7032 [facility] [id number] Information: [id number] (79611) LP-IR Score 69 (Abnormal) Comments: INSULIN RESISTANCE MARKER <--Insulin Sensitive Insulin Resistant--> Percentile in Reference PopulationInsulin Resistance ScoreLP-IR Score Low 25th 50th 75th High <27 27 45 63 >63LP-IR Score is inaccurate if patient is non-fasting. .The LP-IR score is a laboratory developed i [facility] that has beenassociated with insulin resistance and diabetes risk and should beused as one component of a physician's clinical assessment. TheLP-IR score listed above has not been cleared by the [place] Food andDrug Administration. LDL Size 20.2 nm (Normal) Comments: INTERPRETATIVE INFORMATION PARTICLE CONCENTRATION AND SIZE <--Lower CVD Risk Highe r CVD Risk--> LDL AND HDL PARTICLES Percentile in Reference Population HDL-P (total) High 75th 50th 25th Low >34.9 34.9 30.5 26.7 <26.7 . Small LDL-P Low 25th 50th 75th High <117 117 527 839 >839 . LDL Size <-Large (Pattern A)-> <-Small (Pattern B)-> 23.0 20.6 20.5 19.0 Small LDL-P and LDL Size are associated with CVD risk, but not afterLDL-P is taken into account. .These assays were developed and their performance characteristicsdetermined by [employer]. These assays have not been cleared by [place] Food and Drug Administration. The clinical utility of theselaboratory values have not been fully established. Small LDL-P 745 nmol/L (Abnormal) HDL-P (Total) 33.0 umol/L (Normal) Cholesterol, Total 162 mg/dL (Normal) Range: 100-199 Triglycerides 91 mg/dL (Normal) Range: 0-149 HDL-C 50 mg/dL (Normal) LDL-C 94 mg/dL (Normal) Range: 0-99 Comments: . Optimal < 100 Above optimal 100 - 129 Borderline 1 30 - 159 High 160 - 189 Very high > 189 .LDL-C is inaccurate if patient is non-fasting. LDL-P 1369 nmol/L (Abnormal) Comments: Low < 1000 Moderate 1000 - 1299 Borderline-High 1300 - 1599 High 1600 - 2000 Very High > 2000 6-Qzd-840875:47 MICROALBUMIN: CREATININE Comments: PATIENT WAS FASTINGPERFORMED BY: [address] [place] [address] [id number] BY: [employer]70 [facility] [id number] RATIO (69305) AND (44219) Microalb/Creat Ratio 10.3 {mg/g_creat} (Normal) Range: 0.0-30.0 Microalbumin, Urine 16.3 ug/mL (Normal) Creatinine, Urine 157.7 mg/dL (Normal) 5-Byz-716304:47 HGB A1C (79883) Comments: PATIENT WAS FASTINGPERFORMED BY: [employer] [facility] [id number] BY: [employer]70 [facility] [id number] Hemoglobin A1c 6.1 % (Abnormal) Range: 4.8-5.6 Comments: . Pre-diabetes: 5.7 - 6.4 Diabetes: >6.4 Glycemic control for adults with diabetes: <7.0 :4 ASPIRATION (SLIDES ONLY) See Note (Normal) Comments: [facility] C[address] [place], [place], [address] 5 Comments: Patient: AMY VALDOVINOS : 1965 (51/F) Acct Num: [id number] Phys: Devorah DÍAZ,Richar Unit Num: [id number] Loc: LABSPEC Specimen: [id number] Received: 10/07/16 - 1206 Spec Type: ASPIRATION TISSUES TISSUES: COMMENT The specimen is paucicellular and contains rare benign follicular cells and focal chronic inflammatory cells. Clinical correlation is suggested. CYTOLOGY GROSS Received are eight smears labeled with the patient's name and designated per therequisition as FNA left thyroid. Submitted for staining. 10/07/16 TC:5 CPT: 28039 CYTOLOGY STUDY Slides are reviewed. DIAGNOSIS CYTOLOGY Fine needle aspiration, left thyroid nodule (smears): Negative, consistent with colloid nodule. AM:cecil 10/10/16 HEADER OPERATION: Ult rasound-guided fine needle aspiration, left thyroid PRE-OP DIAGNOSIS: Multinodular goiter E04.2 TISSUE SUBMITTED: Fine needle aspiration, left thyroid (8 slides) Signed Enio Madhuri 10/10/16 <signature on file> 5-Cld-968339:56 AHQDS-UPKJLQHVALO-LRPLO (74574) Comments: PATIENT WAS FASTINGPERFORMED BY: [address] [place] [address] [id number] BY: [employer] [facility] [id number] AFP, Serum, Tumor Marker 3.2 ng/mL (Normal) Range: 0.0-8.3 Comments: Ozzie ECLIA methodology 3-Ixs-062129:56 VITAMIN B-12 (CYANOCOBALAMIN) Comments: PATIENT WAS FASTINGPERFORMED BY: [address] [id number] BY: [employer] [place] [id number] (81391) Vitamin B12 302 pg/mL (Normal) Range: 211-946 1-Clz-102946:56 Vitamin D Hydroxy Comments: PATIENT WAS FASTINGPERFORMED BY: [address] [id number] BY: [facility]6370 [facility] [id number] (21157) Vitamin D, 25-Hydroxy 25.1 ng/mL (Abnormal) Range: 30.0-100.0 Comments: Vitamin D deficiency has been defined by the [place] [facility] Companycine and an Endocrine Society practice guideline as alevel of serum 25-OH vitamin D less than 20 ng/mL (1,2).The Endocrine Society went on to further define vitamin Dinsufficiency as a level between 21 and 29 ng/mL (2).1. IOM ([place] of Medicine). 2010. Dietary reference intakes for calcium and D. [place]: The National Academies Press.2. Myla MF, Javier STUART, Panfilo MANN, et al. Evaluation, treatment, and prevention of vitamin D deficiency: an Endocrine Society clinical practice guideline. JCEM. 2010; 96(7):1911-30. 2-Wbg-595488:56 CBC W/AUTO DIFF WBC Comments: PATIENT WAS FASTINGPERFORMED BY: [address] [id number] BY: [facility]6370 [facility] [id number] (99269) Immature Grans (Abs) 0.0 {x10E3/uL} (Normal) Range: 0.0-0.1 Immature Granulocytes 0 % (Normal) Baso (Absolute) 0.0 {x10E3/uL} (Normal) Range: 0.0-0.2 Eos (Absolute) 0.2 {x10E3/uL} (Normal) Range: 0.0-0.4 Monocytes(Absolute) 0.4 {x10E3/uL} (Normal) Range: 0.1-0.9 Lymphs (Absolute) 3.4 {x10E3/uL} (Abnormal) Range: 0.7-3.1 Neutrophils (Absolute) 5.9 {x10E3/uL} (Normal) Range: 1.4-7.0 Basos 0 % (Normal) Eos 2 % (Normal) Monocytes 4 % (Normal) Lymphs 34 % (Normal) Neutrophils 60 % (Normal) Platelets 244 {x10E3/uL} (Normal) Range: 150-379 RDW 14.4 % (Normal) Range: 12.3-15.4 MCHC 33.2 g/dL (Normal) Range: 31.5-35.7 MCH 27.5 pg (Normal) Range: 26.6-33.0 MCV 83 fL (Normal) Range: 79-97 Hematocrit 39.1 % (Normal) Range: 34.0-46.6 Hemoglobin 13.0 g/dL (Normal) Range: 11.1-15.9 RBC 4.72 {x10E6/uL} (Normal) Range: 3.77-5.28 WBC 9.9 {x10E3/uL} (Normal) Range: 3.4-10.8 8-Ypn-320462:56 METABOLIC PANEL, Comments: PATIENT WAS FASTINGPERFORMED BY: [facility] [address] [id number] BY: [facility] [address] [id number] COMPREHENSIVE (31677) ALT (SGPT) 18 [iU]/L (Normal) Range: 0-32 AST (SGOT) 13 [iU]/L (Normal) Range: 0-40 Alkaline Phosphatase, S 83 [iU]/L (Normal) Range: 39-117 Bilirubin, Total 0.3 mg/dL (Normal) Range: 0.0-1.2 A/G Ratio 1.6 (Normal) Range: 1.1-2.5 Globulin, Total 2.5 g/dL (Normal) Range: 1.5-4.5 Albumin, Serum 4.1 g/dL (Normal) Range: 3.5-5.5 Protein, Total, Serum 6.6 g/dL (Normal) Range: 6.0-8.5 Calcium, Serum 9.0 mg/dL (Normal) Range: 8.7-10.2 Carbon Dioxide, Total 24 mmol/L (Normal) Range: 18-29 Chloride, Serum 104 mmol/L (Normal) Range: 96-106 Potassium, Serum 4.2 mmol/L (Normal) Range: 3.5-5.2 Sodium, Serum 142 mmol/L (Normal) Range: 134-144 BUN/Creatinine Ratio 19 (Normal) Range: 9-23 eGFR If Africn Am 97 mL/min/1.73 (Normal) eGFR If NonAfricn Am 84 mL/min/1.73 (Normal) Creatinine, Serum 0.81 mg/dL (Normal) Range: 0.57-1.00 BUN 15 mg/dL (Normal) Range: 6-24 Glucose, Serum 89 mg/dL (Normal) Range: 65-99 9-Irb-441253:56 LIPOPROTEIN, BLD, BY NMR Comments: PATIENT WAS FASTINGPERFORMED BY: BN [facility] [address] [id number] BY: CB [facility] Coobdy6211 [facility] [id number] (02374) LP-IR Score 66 (Abnormal) Comments: INSULIN RESISTANCE MARKER <--Insulin Sensitive Insulin Resistant--> Percentile in Reference PopulationInsulin Resistance ScoreLP-IR Score Low 25th 50th 75th High <27 27 45 63 >63LP-IR Score is inaccurate if patient is non-fasting. .The LP-IR score is a laboratory developed i [facility] that has beenassociated with insulin resistance and diabetes risk and should beused as one component of a physician's clinical assessment. TheLP-IR score listed above has not been cleared by the US Food andDrug Administration. LDL Size 20.4 nm (Normal) Comments: INTERPRETATIVE INFORMATION PARTICLE CONCENTRATION AND SIZE <--Lower CVD Risk Highe r CVD Risk--> LDL AND HDL PARTICLES Percentile in Reference Population HDL-P (total) High 75th 50th 25th Low >34.9 34.9 30.5 26.7 <26.7 . Small LDL-P Low 25th 50th 75th High <117 117 527 839 >839 . LDL Size <-Large (Pattern A)-> <-Small (Pattern B)-> 23.0 20.6 20.5 19.0 Small LDL-P and LDL Size are associated with CVD risk, but not afterLDL-P is taken into account. .These assays were developed and their performance characteristicsdetermined by [employer]. These assays have not been cleared by [place] Food and Drug Administration. The clinical utility of theselaboratory values have not been fully established. Small LDL-P 736 nmol/L (Abnormal) HDL-P (Total) 29.3 umol/L (Abnormal) Cholesterol, Total 165 mg/dL (Normal) Range: 100-199 Triglycerides 94 mg/dL (Normal) Range: 0-149 HDL-C 43 mg/dL (Normal) LDL-C 103 mg/dL (Abnormal) Range: 0-99 Comments: . Optimal < 100 Above optimal 100 - 129 Borderline 1 30 - 159 High 160 - 189 Very high > 189 .LDL-C is inaccurate if patient is non-fasting. LDL-P 1328 nmol/L (Abnormal) Comments: Low < 1000 Moderate 1000 - 1299 Borderline-High 1300 - 1599 High 1600 - 2000 Very High > 2000 2-Kcw-674775:10 HgA1C , Office (72011) HgA1C , Office 5.8 % (Normal) Range: 4.6 - 7.1 6-Hvl-649632:10 Blood Glucose , Office (21288) Blood Glucose , Office 80 (Normal) 94-Tku-953431:18 Magnesium (67092) Comments: PATIENT NOT FASTINGPERFORMED BY: [facility]6370 [facility] [id number] Magnesium, Serum 2.3 mg/dL (Normal) Range: 1.6-2.3 81-Eww-47624:35 FMLWN-JVJIDJHDPAH-LXRBI (23302) Comments: PATIENT WAS FASTINGPERFORMED BY: [facility]6370 [facility] [id number] AFP, Serum, Tumor Marker 3.0 ng/mL (Normal) Range: 0.0-8.3 Comments: Ozzie ECLIA methodology :35 CBC W/AUTO DIFF WBC Comments: PATIENT WAS FASTINGPERFORMED BY: [facility]6370 [facility] [id number] Information: [id number] (03893) Immature Grans (Abs) 0.0 {x10E3/uL} (Normal) Range: 0.0-0.1 Immature Granulocytes 0 % (Normal) Baso (Absolute) 0.0 {x10E3/uL} (Normal) Range: 0.0-0.2 Eos (Absolute) 0.2 {x10E3/uL} (Normal) Range: 0.0-0.4 Monocytes(Absolute) 0.3 {x10E3/uL} (Normal) Range: 0.1-0.9 Lymphs (Absolute) 3.2 {x10E3/uL} (Abnormal) Range: 0.7-3.1 Neutrophils (Absolute) 3.7 {x10E3/uL} (Normal) Range: 1.4-7.0 Basos 0 % (Normal) Eos 2 % (Normal) Monocytes 4 % (Normal) Lymphs 43 % (Normal) Neutrophils 51 % (Normal) Platelets 179 {x10E3/uL} (Normal) Range: 150-379 RDW 14.6 % (Normal) Range: 12.3-15.4 MCHC 33.2 g/dL (Normal) Range: 31.5-35.7 MCH 27.8 pg (Normal) Range: 26.6-33.0 MCV 84 fL (Normal) Range: 79-97 Hematocrit 37.0 % (Normal) Range: 34.0-46.6 Hemoglobin 12.3 g/dL (Normal) Range: 11.1-15.9 RBC 4.43 {x10E6/uL} (Normal) Range: 3.77-5.28 WBC 7.4 {x10E3/uL} (Normal) Range: 3.4-10.8 :35 METABOLIC PANEL, COMPREHENSIVE Comments: PATIENT WAS FASTINGPERFORMED BY: [facility]6370 [facility] [id number] (08886) ALT (SGPT) 14 [iU]/L (Normal) Range: 0-32 AST (SGOT) 12 [iU]/L (Normal) Range: 0-40 Alkaline Phosphatase, S 72 [iU]/L (Normal) Range: 39-117 Bilirubin, Total 0.4 mg/dL (Normal) Range: 0.0-1.2 A/G Ratio 1.9 (Normal) Range: 1.1-2.5 Globulin, Total 2.2 g/dL (Normal) Range: 1.5-4.5 Albumin, Serum 4.1 g/dL (Normal) Range: 3.5-5.5 Protein, Total, Serum 6.3 g/dL (Normal) Range: 6.0-8.5 Calcium, Serum 8.8 mg/dL (Normal) Range: 8.7-10.2 Carbon Dioxide, Total 25 mmol/L (Normal) Range: 18-29 Chloride, Serum 103 mmol/L (Normal) Range: 97-108 Potassium, Serum 4.3 mmol/L (Normal) Range: 3.5-5.2 Sodium, Serum 146 mmol/L (Abnormal) Range: 134-144 BUN/Creatinine Ratio 18 (Normal) Range: 9-23 eGFR If Africn Am 115 mL/min/1.73 (Normal) eGFR If NonAfricn Am 100 mL/min/1.73 (Normal) Creatinine, Serum 0.71 mg/dL (Normal) Range: 0.57-1.00 BUN 13 mg/dL (Normal) Range: 6-24 Glucose, Serum 83 mg/dL (Normal) Range: 65-99 43-Tvd-145518:10 CBC W/AUTO DIFF WBC Comments: PATIENT WAS FASTINGPERFORMED BY: [facility] WoodburyHenmij3316 [facility] [id number] Information: [id number] (96820) Immature Grans (Abs) 0.0 {x10E3/uL} (Normal) Range: 0.0-0.1 Immature Granulocytes 0 % (Normal) Baso (Absolute) 0.0 {x10E3/uL} (Normal) Range: 0.0-0.2 Eos (Absolute) 0.1 {x10E3/uL} (Normal) Range: 0.0-0.4 Monocytes(Absolute) 0.3 {x10E3/uL} (Normal) Range: 0.1-0.9 Lymphs (Absolute) 2.9 {x10E3/uL} (Normal) Range: 0.7-3.1 Neutrophils (Absolute) 3.7 {x10E3/uL} (Normal) Range: 1.4-7.0 Basos 0 % (Normal) Eos 2 % (Normal) Monocytes 4 % (Normal) Lymphs 41 % (Normal) Neutrophils 53 % (Normal) Platelets 196 {x10E3/uL} (Normal) Range: 150-379 RDW 14.6 % (Normal) Range: 12.3-15.4 MCHC 33.2 g/dL (Normal) Range: 31.5-35.7 MCH 27.7 pg (Normal) Range: 26.6-33.0 MCV 83 fL (Normal) Range: 79-97 Hematocrit 38.5 % (Normal) Range: 34.0-46.6 Hemoglobin 12.8 g/dL (Normal) Range: 11.1-15.9 RBC 4.62 {x10E6/uL} (Normal) Range: 3.77-5.28 WBC 7.1 {x10E3/uL} (Normal) Range: 3.4-10.8 83-Mus-255248:10 METABOLIC PANEL, COMPREHENSIVE Comments: PATIENT WAS FASTINGPERFORMED BY: [facility]In[facility] WoodburyGtnqak4710 [facility] [id number] (64092) ALT (SGPT) 14 [iU]/L (Normal) Range: 0-32 AST (SGOT) 14 [iU]/L (Normal) Range: 0-40 Alkaline Phosphatase, S 75 [iU]/L (Normal) Range: 39-117 Bilirubin, Total 0.4 mg/dL (Normal) Range: 0.0-1.2 A/G Ratio 1.9 (Normal) Range: 1.1-2.5 Globulin, Total 2.3 g/dL (Normal) Range: 1.5-4.5 Albumin, Serum 4.4 g/dL (Normal) Range: 3.5-5.5 Protein, Total, Serum 6.7 g/dL (Normal) Range: 6.0-8.5 Calcium, Serum 9.1 mg/dL (Normal) Range: 8.7-10.2 Carbon Dioxide, Total 24 mmol/L (Normal) Range: 18-29 Chloride, Serum 105 mmol/L (Normal) Range: 97-108 Potassium, Serum 4.2 mmol/L (Normal) Range: 3.5-5.2 Sodium, Serum 145 mmol/L (Abnormal) Range: 134-144 BUN/Creatinine Ratio 14 (Normal) Range: 9-23 eGFR If Africn Am 109 mL/min/1.73 (Normal) eGFR If NonAfricn Am 95 mL/min/1.73 (Normal) Creatinine, Serum 0.74 mg/dL (Normal) Range: 0.57-1.00 BUN 10 mg/dL (Normal) Range: 6-24 Glucose, Serum 79 mg/dL (Normal) Range: 65-99 54-Fgu-986032:10 TSH (86086) Comments: PATIENT WAS FASTINGPERFORMED BY: [facility] Xnvvsn6221 [facility] [id number] TSH 0.891 {uIU/mL} (Normal) Range: 0.450-4.500 35-Xho-873978:10 LIPID PANEL (42416) Comments: PATIENT WAS FASTINGPERFORMED BY: [facility] Zabjaq3768 [facility] [id number] LDL/HDL Ratio 2.0 {ratio_units} Range: 0.0-3.2 (Normal) Comments: LDL/HDL Ratio Men Women 1/2 Avg.Risk 1.0 1.5 Av g.Risk 3.6 3.2 2X Avg.Risk 6.2 5.0 3X Avg.Risk 8.0 6.1 LDL Cholesterol Calc 88 mg/dL (Normal) Range: 0-99 VLDL Cholesterol [place] 14 mg/dL (Normal) Range: 5-40 HDL Cholesterol 44 mg/dL (Normal) Comments: According to ATP-III Guidelines, HDL-C >59 mg/dL is considered anegative risk factor for CHD. Triglycerides 70 mg/dL (Normal) Range: 0-149 Cholesterol, Total 146 mg/dL (Normal) Range: 100-199 ASPIRATION (SLIDES ONLY) See Note (Normal) Comments: [facility] [address] [place], [address] :50 Comments: Patient: AMY VALDOVINOS : 1965 (50/F) Acct Num: [id number] Phys: Devorah DÍAZ,Richar Unit Num: [id number] Loc: LABSPEC Specimen: [id number] Received: 12/15/15 - 1312 Spec Type : ASPIRATION TISSUES TISSUES: COMMENT Immediate cytologic evaluation to determine adequacy is not applicable. Correlation with clinical, radiologic findings and appropriate follow up are necessary. CYTOLOGY GROSS Received are 12 smears labeled with the patient's name and designated per the requisition as FNA right thyroid. Submitted for staining. / 12/15/15 TC:5 CPT:88 173 CYTOLOGY STUDY Slides are reviewed. The specimen is adequate for evaluation. The specimen consists of benign follicular cells and colloid. DIAGNOSIS CYTOLOGY Right thyroid nodule, ultrasound guided FNA (smears): Consistent with benign colloid nodule. See cytology study and comment. SJ:cecil 12/16/15 HEADER OPERATION: US guided FNA right thyroid PRE-OP DIAGNOSIS : E04.2 multinodular goiter TISSUE SUBMITTED: Slides from right thyroid FNA Signed Alexis Levi 12/16/15 <signature on file> 51-Boh-498005:19 TSH (79521) Comments: PATIENT NOT FASTINGPERFORMED BY: [facility] Xiaske3396 [facility] [id number] TSH 1.250 {uIU/mL} (Normal) Range: 0.450-4.500 92-Plh-843644:19 T4, FREE (THYROXINE) Comments: PATIENT NOT FASTINGPERFORMED BY: Youjia Qyvkok5250 [facility] [id number] Information: [id number] (92427) T4,Free(Direct) 1.12 ng/dL (Normal) Range: 0.82-1.77 24-Gvw-764621:19 T3, FREE (TRIDOTHYRONINE) (15616) Comments: PATIENT NOT FASTINGPERFORMED BY: Youjia Npoqck6399 [facility] [id number] Triiodothyronine,Free,Serum 3.3 pg/mL (Normal) Range: 2.0-4.4 26-Uqu-104457:15 SED RATE ERYTHROCYTE (40416) Comments: PATIENT NOT FASTINGPERFORMED BY: [facility]6370 [facility] [id number] Sedimentation Rate-Westergren 6 mm/h (Normal) Range: 0-40 19-Mnz-763349:15 C-REACTIVE PROTEIN (94351) Comments: PATIENT NOT FASTINGPERFORMED BY: [facility]CoIn[facility] WoodburyQtzxpy2294 [facility] [id number] C-Reactive Protein, Quant 3.9 mg/L (Normal) Range: 0.0-4.9 06-Hgj-489927:15 METABOLIC PANEL, COMPREHENSIVE Comments: PATIENT NOT FASTINGPERFORMED BY: [facility]6370 [facility] [id number] (68389) ALT (SGPT) 35 [iU]/L (Abnormal) Range: 0-32 AST (SGOT) 19 [iU]/L (Normal) Range: 0-40 Alkaline Phosphatase, S 112 [iU]/L (Normal) Range: 39-117 Bilirubin, Total 0.5 mg/dL (Normal) Range: 0.0-1.2 A/G Ratio 1.8 (Normal) Range: 1.1-2.5 Globulin, Total 2.6 g/dL (Normal) Range: 1.5-4.5 Albumin, Serum 4.6 g/dL (Normal) Range: 3.5-5.5 Protein, Total, Serum 7.2 g/dL (Normal) Range: 6.0-8.5 Calcium, Serum 9.4 mg/dL (Normal) Range: 8.7-10.2 Carbon Dioxide, Total 26 mmol/L (Normal) Range: 18-29 Chloride, Serum 102 mmol/L (Normal) Range: 97-108 Potassium, Serum 3.9 mmol/L (Normal) Range: 3.5-5.2 Sodium, Serum 143 mmol/L (Normal) Range: 134-144 BUN/Creatinine Ratio 17 (Normal) Range: 9-23 eGFR If Africn Am 104 mL/min/1.73 (Normal) eGFR If NonAfricn Am 90 mL/min/1.73 (Normal) Creatinine, Serum 0.77 mg/dL (Normal) Range: 0.57-1.00 BUN 13 mg/dL (Normal) Range: 6-24 Glucose, Serum 76 mg/dL (Normal) Range: 65-99 56-Hxn-092650:15 EBV Panel (20297) Comments: PATIENT NOT FASTINGPERFORMED BY: [facility] Hospital6370 [facility] [id number] Interpretation: SPRCS (Normal) Comments: EBV Interpretation Chart . Interpretation EBV-IgM EA(D)-IgG VCA-IgG EBNA-IgG . EBV Seronegative - - - - Early Phase + - - - Acute Primary + +or- + - Infection Convalescence/Past - +or- + + Infection Reactivated +or- + + + Infection + Antibody Present - Antibody Absent EBV Nuclear Antigen Ab, IgG 565.0 U/mL (Abnormal) Range: 0.0-17.9 Comments: Negative <18.0 Equivocal 18.0 - 21.9 Positive >21.9 EBV Ab VCA, IgG 539.0 U/mL (Abnormal) Range: 0.0-17.9 Comments: Negative <18.0 Equivocal 18.0 - 21.9 Positive >21.9 EBV Early Antigen Ab, IgG <9.0 U/mL (Normal) Range: 0.0-8.9 Comments: Negative < 9.0 Equivocal 9.0 - 10.9 Positive >10.9 EBV Ab VCA, IgM <36.0 U/mL (Normal) Range: 0.0-35.9 Comments: Negative <36.0 Equivocal 36.0 - 43.9 Positive >43.9 32-Qfh-922687:15 CBC, PLATELETS & MANUAL Comments: PATIENT NOT FASTINGPERFORMED BY: [facility]6370 [facility] [id number] Information: [id number] DIFF (09640) Immature Grans (Abs) 0.0 {x10E3/uL} (Normal) Range: 0.0-0.1 Immature Granulocytes 0 % (Normal) Baso (Absolute) 0.0 {x10E3/uL} (Normal) Range: 0.0-0.2 Eos (Absolute) 0.2 {x10E3/uL} (Normal) Range: 0.0-0.4 Monocytes(Absolute) 0.4 {x10E3/uL} (Normal) Range: 0.1-0.9 Lymphs (Absolute) 3.4 {x10E3/uL} (Abnormal) Range: 0.7-3.1 Neutrophils (Absolute) 4.8 {x10E3/uL} (Normal) Range: 1.4-7.0 Basos 0 % (Normal) Eos 2 % (Normal) Monocytes 4 % (Normal) Lymphs 39 % (Normal) Neutrophils 55 % (Normal) Platelets 229 {x10E3/uL} (Normal) Range: 150-379 RDW 14.2 % (Normal) Range: 12.3-15.4 MCHC 34.9 g/dL (Normal) Range: 31.5-35.7 MCH 27.6 pg (Normal) Range: 26.6-33.0 MCV 79 fL (Normal) Range: 79-97 Hematocrit 41.6 % (Normal) Range: 34.0-46.6 Hemoglobin 14.5 g/dL (Normal) Range: 11.1-15.9 RBC 5.26 {x10E6/uL} (Normal) Range: 3.77-5.28 WBC 8.8 {x10E3/uL} (Normal) Range: 3.4-10.8 [id number] CBC with auto diff Comments: [facility] BY: [id number] [id number] Information: NURSE DRAW ([id number]) Immature Grans (Abs) 0.0 {x10E3/uL} (Normal) Range: 0.0-0.1 Immature Granulocytes 0 % (Normal) Baso (Absolute) 0.0 {x10E3/uL} (Normal) Range: 0.0-0.2 Eos (Absolute) 0.3 {x10E3/uL} (Normal) Range: 0.0-0.4 Monocytes(Absolute) 0.4 {x10E3/uL} (Normal) Range: 0.1-0.9 Lymphs (Absolute) 2.7 {x10E3/uL} (Normal) Range: 0.7-3.1 Neutrophils (Absolute) 5.1 {x10E3/uL} (Normal) Range: 1.4-7.0 Basos 1 % (Normal) Eos 4 % (Normal) Monocytes 5 % (Normal) Lymphs 32 % (Normal) Neutrophils 58 % (Normal) Platelets 220 {x10E3/uL} (Normal) Range: 150-379 RDW 14.5 % (Normal) Range: 12.3-15.4 MCHC 33.7 g/dL (Normal) Range: 31.5-35.7 MCH 28.2 pg (Normal) Range: 26.6-33.0 MCV 84 fL (Normal) Range: 79-97 Hematocrit 39.8 % (Normal) Range: 34.0-46.6 Hemoglobin 13.4 g/dL (Normal) Range: 11.1-15.9 RBC 4.76 {x10E6/uL} (Normal) Range: 3.77-5.28 WBC 8.6 {x10E3/uL} (Normal) Range: 3.4-10.8 [id number] METABOLIC PANEL, COMPREHENSIVE Comments: PERFORMED BY: [id number] [facility] [id number] ([id number]) ALT (SGPT) 19 [iU]/L (Normal) Range: 0-32 AST (SGOT) 14 [iU]/L (Normal) Range: 0-40 Alkaline Phosphatase, S 92 [iU]/L (Normal) Range: 39-117 Bilirubin, Total 0.4 mg/dL (Normal) Range: 0.0-1.2 A/G Ratio 1.7 (Normal) Range: 1.1-2.5 Globulin, Total 2.6 g/dL (Normal) Range: 1.5-4.5 Albumin, Serum 4.3 g/dL (Normal) Range: 3.5-5.5 Protein, Total, Serum 6.9 g/dL (Normal) Range: 6.0-8.5 Calcium, Serum 9.1 mg/dL (Normal) Range: 8.7-10.2 Carbon Dioxide, Total 25 mmol/L (Normal) Range: 18-29 Chloride, Serum 104 mmol/L (Normal) Range: 97-108 Potassium, Serum 4.5 mmol/L (Normal) Range: 3.5-5.2 Sodium, Serum 145 mmol/L (Abnormal) Range: 134-144 BUN/Creatinine Ratio 13 (Normal) Range: 9-23 eGFR If Africn Am 106 mL/min/1.73 (Normal) eGFR If NonAfricn Am 92 mL/min/1.73 (Normal) Creatinine, Serum 0.76 mg/dL (Normal) Range: 0.57-1.00 BUN 10 mg/dL (Normal) Range: 6-24 Glucose, Serum 93 mg/dL (Normal) Range: 65-99 97-Dwo-314993:00 [id number]-[id number]-[id number] (83723) Comments: PERFORMED BY: [employer] [facility] [id number] AFP, Serum, Tumor Marker 3.2 ng/mL (Normal) Range: 0.0-8.3 Comments: Ozzie ECLIA methodology 42-Sfo-899791:28 HgA1C , Office (88586) HgA1C , Office 5.9 % (Normal) Range: 4.6 - 7.1 3-Spq-209336:22 URINE KENROY CULTURE-JUAN COL Comments: PATIENT NOT FASTINGPERFORMED BY: [employer] [facility] [id number] Information: SRC:[facility] [id number] COUNT (71765) Result 1 NG36 (Normal) Comments: No growth in 36 - 48 hours. Urine Culture,Comprehensive Final report (Normal) 9-Xej-318559:36 Urinalysis, Office (84162) UA - LEUKOCYTE ESTERASE Small (Normal) UA - NITRITE Negative (Normal) URINE UROBILINGN JUAN TIMED Normal mg/dL (Normal) UA - PROTEIN Negative mg/dL (Normal) UA - PH 6.5 (Normal) UA - BLOOD Negative (Normal) UA - SPECIFIC GRAVITY 1.005 (Normal) UA - KETONES Negative mg/dL (Normal) UA - BILIRUBIN Negative (Normal) UA - GLUCOSE Negative (Normal) 99-Uml-212603:04 CBC W/AUTO DIFF WBC Comments: PATIENT WAS FASTINGPERFORMED BY: [employer] [facility] [id number] Information: [id number] (86417) Immature Grans (Abs) 0.0 {x10E3/uL} (Normal) Range: 0.0-0.1 Immature Granulocytes 0 % (Normal) Baso (Absolute) 0.0 {x10E3/uL} (Normal) Range: 0.0-0.2 Eos (Absolute) 0.1 {x10E3/uL} (Normal) Range: 0.0-0.4 Monocytes(Absolute) 0.4 {x10E3/uL} (Normal) Range: 0.1-0.9 Lymphs (Absolute) 3.6 {x10E3/uL} (Abnormal) Range: 0.7-3.1 Neutrophils (Absolute) 4.0 {x10E3/uL} (Normal) Range: 1.4-7.0 Basos 0 % (Normal) Eos 2 % (Normal) Monocytes 5 % (Normal) Lymphs 44 % (Normal) Neutrophils 49 % (Normal) Platelets 266 {x10E3/uL} (Normal) Range: 150-379 RDW 14.3 % (Normal) Range: 12.3-15.4 MCHC 34.6 g/dL (Normal) Range: 31.5-35.7 MCH 27.9 pg (Normal) Range: 26.6-33.0 MCV 81 fL (Normal) Range: 79-97 Hematocrit 39.9 % (Normal) Range: 34.0-46.6 Hemoglobin 13.8 g/dL (Normal) Range: 11.1-15.9 RBC 4.95 {x10E6/uL} (Normal) Range: 3.77-5.28 WBC 8.2 {x10E3/uL} (Normal) Range: 3.4-10.8 68-Ycg-355856:04 METABOLIC PANEL, COMPREHENSIVE Comments: PATIENT WAS FASTINGPERFORMED BY: [facility]In[facility] WoodburyZcgfbp1352 [facility] [id number] (10257) ALT (SGPT) 20 [iU]/L (Normal) Range: 0-32 AST (SGOT) 20 [iU]/L (Normal) Range: 0-40 Alkaline Phosphatase, S 79 [iU]/L (Normal) Range: 39-117 Bilirubin, Total 0.4 mg/dL (Normal) Range: 0.0-1.2 A/G Ratio 1.7 (Normal) Range: 1.1-2.5 Globulin, Total 2.5 g/dL (Normal) Range: 1.5-4.5 Albumin, Serum 4.2 g/dL (Normal) Range: 3.5-5.5 Protein, Total, Serum 6.7 g/dL (Normal) Range: 6.0-8.5 Calcium, Serum 9.2 mg/dL (Normal) Range: 8.7-10.2 Carbon Dioxide, Total 25 mmol/L (Normal) Range: 18-29 Chloride, Serum 102 mmol/L (Normal) Range: 97-108 Potassium, Serum 4.1 mmol/L (Normal) Range: 3.5-5.2 Sodium, Serum 144 mmol/L (Normal) Range: 134-144 BUN/Creatinine Ratio 8 (Abnormal) Range: 9-23 eGFR If Africn Am 96 mL/min/1.73 (Normal) eGFR If NonAfricn Am 83 mL/min/1.73 (Normal) Creatinine, Serum 0.83 mg/dL (Normal) Range: 0.57-1.00 BUN 7 mg/dL (Normal) Range: 6-24 Glucose, Serum 74 mg/dL (Normal) Range: 65-99 26-Sdt-403059:04 LIPID PANEL (75413) Comments: PATIENT WAS FASTINGPERFORMED BY: [employer] [place] [id number]; apt. 15 LDL/HDL Ratio 2.1 {ratio_units} Range: 0.0-3.2 (Normal) Comments: LDL/HDL Ratio Men Women 1/2 Avg.Risk 1.0 1.5 Av g.Risk 3.6 3.2 2X Avg.Risk 6.2 5.0 3X Avg.Risk 8.0 6.1 LDL Cholesterol Calc 96 mg/dL (Normal) Range: 0-99 VLDL Cholesterol [place] 12 mg/dL (Normal) Range: 5-40 HDL Cholesterol 45 mg/dL (Normal) Comments: According to ATP-III Guidelines, HDL-C >59 mg/dL is considered anegative risk factor for CHD. Triglycerides 61 mg/dL (Normal) Range: 0-149 Cholesterol, Total 153 mg/dL (Normal) Range: 100-199 AFP, Serum, Tumor 3.0 ng/mL (Normal) Comments: PATIENT WAS FASTINGPERFORMED BY: [employer]70 [facility] [id number] 59:38 Marker Range: 0.0-8.3 Comments: Ozzie ECLIA methodology :38 CBC With Differential/Platelet Comments: PATIENT WAS FASTINGPERFORMED BY: [facility]CoMichael [facility] 6844470 [facility] [id number] Information: [id number] Immature Grans (Abs) 0.0 {x10E3/uL} (Normal) Range: 0.0-0.1 Immature Granulocytes 0 % (Normal) Baso (Absolute) 0.0 {x10E3/uL} (Normal) Range: 0.0-0.2 Eos (Absolute) 0.3 {x10E3/uL} (Normal) Range: 0.0-0.4 Monocytes(Absolute) 0.3 {x10E3/uL} (Normal) Range: 0.1-0.9 Lymphs (Absolute) 3.0 {x10E3/uL} (Normal) Range: 0.7-3.1 Neutrophils (Absolute) 4.2 {x10E3/uL} (Normal) Range: 1.4-7.0 Basos 0 % (Normal) Eos 4 % (Normal) Monocytes 4 % (Normal) Lymphs 38 % (Normal) Neutrophils 54 % (Normal) Platelets 214 {x10E3/uL} (Normal) Range: 150-379 RDW 14.8 % (Normal) Range: 12.3-15.4 MCHC 32.7 g/dL (Normal) Range: 31.5-35.7 MCH 26.5 pg (Abnormal) Range: 26.6-33.0 MCV 81 fL (Normal) Range: 79-97 Hematocrit 41.0 % (Normal) Range: 34.0-46.6 Hemoglobin 13.4 g/dL (Normal) Range: 11.1-15.9 RBC 5.06 {x10E6/uL} (Normal) Range: 3.77-5.28 WBC 7.8 {x10E3/uL} (Normal) Range: 3.4-10.8 :38 Comp. Metabolic Panel (14) Comments: PATIENT WAS FASTINGPERFORMED BY: [facility]CoIn[facility] WoodburyOelcqw4602 [facility] [id number] ALT (SGPT) 13 [iU]/L (Normal) Range: 0-32 AST (SGOT) 14 [iU]/L (Normal) Range: 0-40 Alkaline Phosphatase, S 75 [iU]/L (Normal) Range: 39-117 Bilirubin, Total 0.4 mg/dL (Normal) Range: 0.0-1.2 A/G Ratio 1.7 (Normal) Range: 1.1-2.5 Globulin, Total 2.5 g/dL (Normal) Range: 1.5-4.5 Albumin, Serum 4.3 g/dL (Normal) Range: 3.5-5.5 Protein, Total, Serum 6.8 g/dL (Normal) Range: 6.0-8.5 Calcium, Serum 9.2 mg/dL (Normal) Range: 8.7-10.2 Carbon Dioxide, Total 25 mmol/L (Normal) Range: 18-29 Chloride, Serum 102 mmol/L (Normal) Range: 97-108 Potassium, Serum 4.2 mmol/L (Normal) Range: 3.5-5.2 Sodium, Serum 142 mmol/L (Normal) Range: 134-144 BUN/Creatinine Ratio 17 (Normal) Range: 9-23 eGFR If Africn Am 87 mL/min/1.73 (Normal) eGFR If NonAfricn Am 75 mL/min/1.73 (Normal) Creatinine, Serum 0.90 mg/dL (Normal) Range: 0.57-1.00 BUN 15 mg/dL (Normal) Range: 6-24 Glucose, Serum 92 mg/dL (Normal) Range: 65-99 : Hemoglobin A1c 5.8 % (Abnormal) Comments: PATIENT WAS FASTINGPERFORMED BY: [facility] [id number]; f/u on 02/06 38 Range: 4.8-5.6 Comments: . Increased risk for diabetes: 5.7 - 6.4 Diabetes: >6.4 Glycemic control for adults with diabetes: <7.0 :38 Lipid Panel With LDL/HDL Comments: PATIENT WAS FASTINGPERFORMED BY: [facility] [id number] Ratio LDL/HDL Ratio 3.1 {ratio_units} (Normal) Range: 0.0-3.2 Comments: LDL/HDL Ratio Men Women 1/2 Avg.Risk 1.0 1.5 Av g.Risk 3.6 3.2 2X Avg.Risk 6.2 5.0 3X Avg.Risk 8.0 6.1 LDL Cholesterol Calc 139 mg/dL (Abnormal) Range: 0-99 VLDL Cholesterol [place] 23 mg/dL (Normal) Range: 5-40 HDL Cholesterol 45 mg/dL (Normal) Comments: According to ATP-III Guidelines, HDL-C >59 mg/dL is considered anegative risk factor for CHD. Triglycerides 114 mg/dL (Normal) Range: 0-149 Cholesterol, Total 207 mg/dL (Abnormal) Range: 100-199 41-Pia-15373:38 Microalb/Creat Ratio, Randm Ur Comments: PATIENT WAS FASTINGPERFORMED BY: iDiDiDInspira Medical Center WoodburyAnbkye3851 [facility] [id number] Microalb/Creat Ratio 19.0 {mg/g_creat} Range: 0.0-30.0 (Normal) Microalbumin, Urine 23.5 ug/mL (Abnormal) Range: 0.0-17.0 Creatinine, Urine 124.0 mg/dL (Normal) Range: 15.0-278.0 05-Feb-2015 Vitamin D, 25-Hydroxy 32.7 ng/mL (Normal) Comments: PATIENT WAS FASTINGPERFORMED BY: [employer] [place] Londhv5395 [facility] [id number] 9:38 Range: 30.0-100.0 Comments: Vitamin D deficiency has been defined by the [place] ofMedicine and an Endocrine Society practice guideline as alevel of serum 25-OH vitamin D less than 20 ng/mL (1,2).The Endocrine Society went on to further define vitamin Dinsufficiency as a level between 21 and 29 ng/mL (2).1. IOM ([place] of Medicine). 2010. Dietary reference intakes for calcium and D. [place]: The National Academies Press.2. Myla MF, Javier STUART, Panfilo MANN, et al. Evaluation, treatment, and prevention of vitamin D deficiency: an Endocrine Society clinical practice guideline. JCEM. 2010; 96(7):1911-30. 35-Uve-021541:49 Comprehensive Metabolic Profil Comments: STAT CREATININE FOR MRITest performed at:[facility] Zfnwcayrhb[address] [facility] [place] [address] ; Darrick GAP 3 (Abnormal) Range: 5-15 CO2 30.0 mmol/L (Normal) Range: 21.0-32.0 CL 108 mmol/L (Abnormal) Range: 98-107 K 3.5 mmol/L (Normal) Range: 3.5-5.1 NA 141 mmol/L (Normal) Range: 136-145 T BILI 0.40 mg/dL (Normal) Range: 0.00-4.00 ALT 30 U/L (Normal) Range: 12-78 ALK P 91 U/L (Normal) Range: 50-136 AST 15 U/L (Normal) Range: 15-37 CA 9.1 mg/dL (Normal) Range: 8.5-10.1 A/G 1.2 {RATIO} (Normal) Range: 0.9-2.4 GLOB 3.4 g/dL (Normal) Range: 2.7-4.2 ALB 4.0 g/dL (Normal) Range: 3.4-5.0 T PROT 7.4 g/dL (Normal) Range: 6.4-8.2 BUN/CRE 12.2 {RATIO} (Normal) Range: 10-20 EST GFR - AA 86 mL/min (Normal) EST GFR 71 mL/min (Normal) CREAT,SERUM 0.9 mg/dL (Normal) Range: 0.6-1.0 BUN 11 mg/dL (Normal) Range: 7-18 GLU 82 mg/dL (Normal) Range: 70-110 81-Nkc-720625:49 Hemoglobin A1c Comments: Test performed at:[facility] [address] [place] [address] HGB A1C 5.7 % (Normal) Range: 4.2-6.3 33-Pfz-165291:49 Lipid Profile Comments: STAT CREATININE FOR MRITest performed at:[facility] [address] [place] [address] 44691 VLDL 25 mg/dL (Normal) Range: 5-40 LDL 100 mg/dL (Normal) Range: 0-130 HDL 35 mg/dL (Abnormal) Comments: Reference Range HDL <40 mg/dL Low HDL Cholesterol HDL >or= 60 mg/dL High HDL Cholesterol TRIG 123 mg/dL (Normal) Range: 0-199 Comments: Serum Triglycerides Reference Interval Normal <150 mg/dL Borderline high 150 - 199 mg/dL High 200 - 499 mg/dL Very High > or = 500 mg/dL CHOL 160 mg/dL (Normal) Comments: <200 mg/dL Desirable 200-240 mg/dL Borderline >240 mg/dL High Risk 99-Tvd-611727:49 Vitamin D,25 Hydroxy Comments: Test performed at:[facility] [address] [place] [address] [id number] Vitamin D 25-OH 76.3 ng/mL (Normal) Comments: Vitamin D 25(OH) Status Range Deficiency <20 ng/mL (50nmol/L) Insuffciency 20 - 30 ng/mL (50 - 75 nmol/L) Sufficiency 30 - 100 ng/mL (75 - 250 nmol/L) Toxicity >100 ng/mL (>250 nmol/L) 3-Jhm-037897:15 Culture, Urine Comments: Test performed at:[facility] [address] [place] [address] CUUR See Note (Normal) Comments: Urine CultureORGANISM 1: Mixed Gram Positive OrganismsColony Count 11,000-25,000MIX CONTAM Mixed Contaminants. Submit new specimen if indicated. 5-Ged-472980:23 Lipid Panel (97158) Comments: PATIENT WAS FASTINGPERFORMED BY: [facility]CoIn[facility] Center WoodburyYelvry6968 [facility] [id number] LDL/HDL Ratio 2.9 {ratio_units} (Normal) Range: 0.0-3.2 Comments: LDL/HDL Ratio Men Women 1/2 Avg.Risk 1.0 1.5 Av g.Risk 3.6 3.2 2X Avg.Risk 6.2 5.0 3X Avg.Risk 8.0 6.1 LDL Cholesterol Calc 104 mg/dL (Abnormal) Range: 0-99 VLDL Cholesterol [place] 24 mg/dL (Normal) Range: 5-40 HDL Cholesterol 36 mg/dL (Abnormal) Comments: According to ATP-III Guidelines, HDL-C >59 mg/dL is considered anegative risk factor for CHD. Triglycerides 121 mg/dL (Normal) Range: 0-149 Cholesterol, Total 164 mg/dL (Normal) Range: 100-199 7-Ykt-643490:23 Metabolic Panel, Comments: PATIENT WAS FASTINGPERFORMED BY: [employer] [facility] [id number] Information: [id number] Comprehensive (57382) ALT (SGPT) 24 [iU]/L (Normal) Range: 0-32 AST (SGOT) 18 [iU]/L (Normal) Range: 0-40 Alkaline Phosphatase, S 78 [iU]/L (Normal) Range: 39-117 Bilirubin, Total 0.3 mg/dL (Normal) Range: 0.0-1.2 A/G Ratio 1.9 (Normal) Range: 1.1-2.5 Globulin, Total 2.4 g/dL (Normal) Range: 1.5-4.5 Albumin, Serum 4.5 g/dL (Normal) Range: 3.5-5.5 Protein, Total, Serum 6.9 g/dL (Normal) Range: 6.0-8.5 Calcium, Serum 9.3 mg/dL (Normal) Range: 8.7-10.2 Carbon Dioxide, Total 26 mmol/L (Normal) Range: 18-29 Chloride, Serum 100 mmol/L (Normal) Range: 97-108 Potassium, Serum 4.1 mmol/L (Normal) Range: 3.5-5.2 Sodium, Serum 142 mmol/L (Normal) Range: 134-144 BUN/Creatinine Ratio 17 (Normal) Range: 9-23 eGFR If Africn Am 88 mL/min/1.73 (Normal) eGFR If NonAfricn Am 76 mL/min/1.73 (Normal) Creatinine, Serum 0.89 mg/dL (Normal) Range: 0.57-1.00 BUN 15 mg/dL (Normal) Range: 6-24 Glucose, Serum 94 mg/dL (Normal) Range: 65-99 89-Ydn-120854:49 CALCIFEDIOL (73328) Comments: PATIENT NOT FASTINGPERFORMED BY: [employer]D Aiyboc4862 [facility] [id number] Vitamin D, 25-Hydroxy 18.9 ng/mL (Abnormal) Range: 30.0-100.0 Comments: Vitamin D deficiency has been defined by the [place] ofMedicine and an Endocrine Society practice guideline as alevel of serum 25-OH vitamin D less than 20 ng/mL (1,2).The Endocrine Society went on to further define vitamin Dinsufficiency as a level between 21 and 29 ng/mL (2).1. IOM ([place] of Medicine). 2010. Dietary reference intakes for calcium and D. [place]: The National Academies Press.2. Myla MF, Javier STUART, Panfilo MANN, et al. Evaluation, treatment, and prevention of vitamin D deficiency: an Endocrine Society clinical practice guideline. JCEM. 2010; 96(6):1911-30. 14-Wmv-302190:52 Hemoglobin A1c Comments: Test performed at:[facility] [address] [place] [address] [id number] HGB A1C 6.4 % (Abnormal) Range: 4.2-6.3 75-Ouo-630949:52 Lipid Profile Comments: Test performed at:[facility] [address] [facility] [place], [place] [id number] VLDL 35 mg/dL (Normal) Range: 5-40 LDL 140 mg/dL (Abnormal) Range: 0-130 HDL 35 mg/dL (Abnormal) Comments: Reference Range HDL <40 mg/dL Low HDL Cholesterol HDL >or= 60 mg/dL High HDL Cholesterol TRIG 175 mg/dL (Normal) Range: 0-199 Comments: Serum Triglycerides Reference Interval Normal <150 mg/dL Borderline high 150 - 199 mg/dL High 200 - 499 mg/dL Very High > or = 500 mg/dL CHOL 210 mg/dL (Abnormal) Comments: <200 mg/dL Desirable 200-240 mg/dL Borderline >240 mg/dL High Risk :52 Liver Profile Comments: Test performed at:[facility] [address]pr[address]ymv[address] [facility] [place], [place] [id number] D BILI 0.10 mg/dL (Normal) Range: 0.00-0.30 T BILI 0.50 mg/dL (Normal) Range: 0.00-4.00 ALT 43 U/L (Normal) Range: 12-78 ALK P 92 U/L (Normal) Range: 50-136 AST 18 U/L (Normal) Range: 15-37 GLOB 3.5 g/dL (Normal) Range: 2.7-4.2 ALB 4.0 g/dL (Normal) Range: 3.4-5.0 T PROT 7.5 g/dL (Normal) Range: 6.4-8.2 20-Frd-181449:50 Serum Creatinine AND GFR Comments: Has pt arrived? YTest performed at:[facility] [address] [place], [place] 8[address] EST GFR - AA 86 mL/min (Normal) EST GFR 71 mL/min (Normal) CREAT,SERUM 0.9 mg/dL (Normal) Range: 0.6-1.0 29-Ovo-458773:38 Hepatic Function Panel Comments: PATIENT WAS FASTINGPERFORMED BY: [employer] VacaCrispifyNovant Health [facility] [id number] Information: [id number] (7) ALT (SGPT) 36 [iU]/L (Abnormal) Range: 0-32 AST (SGOT) 23 [iU]/L (Normal) Range: 0-40 Alkaline Phosphatase, S 107 [iU]/L (Normal) Range: 39-117 Bilirubin, Direct 0.13 mg/dL (Normal) Range: 0.00-0.40 Bilirubin, Total 0.3 mg/dL (Normal) Range: 0.0-1.2 Albumin, Serum 4.7 g/dL (Normal) Range: 3.5-5.5 Protein, Total, Serum 7.3 g/dL (Normal) Range: 6.0-8.5 01-Jul-2014 Written Authorization WAR (Normal) Comments: PATIENT WAS FASTINGPERFORMED BY: [employer] Abzyxw5018 [facility] [id number] 13:38 Comments: Written Authorization Received.Authorization received from GEORGE OSCAR LPN [id number] by Sandrita Onofre 83-Nrg-725294:38 CALCIFEDIOL (95533) Comments: PATIENT WAS FASTINGPERFORMED BY: [employer] Auhkyw1183 [facility] [id number] Vitamin D, 25-Hydroxy 30.1 ng/mL (Normal) Range: 30.0-100.0 Comments: Vitamin D deficiency has been defined by the [place] ofMedicine and an Endocrine Society practice guideline as alevel of serum 25-OH vitamin D less than 20 ng/mL (1,2).The Endocrine Society went on to further define vitamin Dinsufficiency as a level between 21 and 29 ng/mL (2).1. IOM ([place] of Medicine). 2010. Dietary reference intakes for calcium and D. [place]: The National Academies Press.2. Myla MF, Javier STUART, Panfilo MANN, et al. Evaluation, treatment, and prevention of vitamin D deficiency: an Endocrine Society clinical practice guideline. JCEM. 2010; 96(7):1911-30. 98-Tpy-094198:38 LIPID PANEL (70187) Comments: PATIENT WAS FASTINGPERFORMED BY: [employer] [facility] [id number] Information: [id number] LDL/HDL Ratio 4.2 {ratio_units} (Abnormal) Range: 0.0-3.2 Comments: LDL/HDL Ratio Men Women 1/2 Avg.Risk 1.0 1.5 Av g.Risk 3.6 3.2 2X Avg.Risk 6.2 5.0 3X Avg.Risk 8.0 6.1 LDL Cholesterol Calc 161 mg/dL (Abnormal) Range: 0-99 VLDL Cholesterol [place] 25 mg/dL (Normal) Range: 5-40 HDL Cholesterol 38 mg/dL (Abnormal) Comments: According to ATP-III Guidelines, HDL-C >59 mg/dL is considered anegative risk factor for CHD. Triglycerides 127 mg/dL (Normal) Range: 0-149 Cholesterol, Total 224 mg/dL (Abnormal) Range: 100-199 18-Dlt-977310:49 HEPATIC FUNCTION PANEL Comments: PATIENT NOT FASTINGPERFORMED BY: [employer] Nsvgac3534 [facility] [id number] Information: [id number] (63827) ALT (SGPT) 193 [iU]/L (Abnormal) Range: 0-32 AST (SGOT) 43 [iU]/L (Abnormal) Range: 0-40 Alkaline Phosphatase, S 135 [iU]/L (Abnormal) Range: 39-117 Bilirubin, Direct 0.18 mg/dL (Normal) Range: 0.00-0.40 Bilirubin, Total 0.3 mg/dL (Normal) Range: 0.0-1.2 Albumin, Serum 4.1 g/dL (Normal) Range: 3.5-5.5 Protein, Total, Serum 6.7 g/dL (Normal) Range: 6.0-8.5 97-Bju-861892:49 HEPATITIS PANEL (63381) Comments: PATIENT NOT FASTINGPERFORMED BY: [place] 1447470 [facility] [id number] Hep C Virus Ab <0.1 {s/co_ratio} (Normal) Range: 0.0-0.9 Comments: Negative: < 0.8 Indeterminate: 0.8 - 0.9 Positive: > 0.9 . In order to reduce the incidence of a false positive result, the CDC recommends that all s/co ratios between 1.0 and 10.9 be confirmed by a more specific supplemental or PCR testing. [facility] offers HCV Ab w/Reflex to Verification test #[id number]. Hep B Core Ab, IgM Negative (Normal) HBsAg Screen Negative (Normal) Hep A Ab, IgM Negative (Normal) 47-Edn-051668:49 ANTIMITOCHONDRIAL ANTIBODY Comments: PATIENT NOT FASTINGPERFORMED BY: [facility]6370 [facility] [id number] (97428) Atypical pANCA <1:20 {titer} (Normal) Comments: The atypical pANCA pattern has been observed in a significantpercentage of patients with ulcerative colitis, primary sclerosingcholangitis and autoimmune hepatitis. Perinuclear (P-ANCA) <1:20 {titer} (Normal) Comments: The presence of positive fluorescence exhibiting P-ANCA or C-ANCApatterns alone is not specific for the diagnosis of Kennedy'sGranulomatosis (WG) or microscopic polyangiitis. Decisions abouttreatment sh ould not be based solely on ANCA IFA results. TheInternational ANCA Group Consensus recommends follow up testing ofpositive sera with both NE-3 and MPO- ANCA enzyme immunoassays. Asmany as 5% serum samp les are positive only by EIA.Ref. AM J Clin Pathol 1999;111:507-513. Cytoplasmic (C-ANCA) <1:20 {titer} (Normal) 10-Qxp-798023:49 TRANSFERRIN (75730) Comments: PATIENT NOT FASTINGPERFORMED BY: [facility]6370 [facility] [id number] Transferrin 259 mg/dL (Normal) Range: 200-370 84-Toi-416583:49 GGT (GAMMA GLUTAMYLTRANSFERASE) Comments: PATIENT NOT FASTINGPERFORMED BY: [facility] [place] [address] [id number] (70583) GGT 385 [iU]/L (Abnormal) Range: 0-60 61-Zxg-020298:49 FERRITIN (85306) Comments: PATIENT NOT FASTINGPERFORMED BY: [facility]6370 [facility] [id number] Ferritin, Serum 447 ng/mL (Abnormal) Range: 15-150 18-Fja-844059:49 CMV IGM ANTBDY (56204) Comments: PATIENT NOT FASTINGPERFORMED BY: [facility]6370 [facility] [id number] Cytomegalovirus (CMV) Ab, IgM <30.0 AU/mL (Normal) Range: 0.0-29.9 Comments: Negative <30.0 Equivocal 30.0 - 34.9 Positive >34.9 A positive result is generally indicative of acute infection, reactivation or persistent IgM production. 52-Nnl-370630:49 CERULOPLASMIN (95169) Comments: PATIENT NOT FASTINGPERFORMED BY: [facility] [place] [address] [id number] Ceruloplasmin 29.9 mg/dL (Normal) Range: 16.0-45.0 39-Ofx-817088:49 ASM (ANTI SMOOTH MUSCLE Comments: PATIENT NOT FASTINGPERFORMED BY: [address] [id number] ANTIBODY) (04001) Actin (Smooth Muscle) Antibody 5 {Units} (Normal) Range: 0-19 Comments: Negative 0 - 19 Weak positive 20 - 30 Moderate to strong positive >30 . Actin Antibodies are found in 52-85% of patients with autoimmune hepatitis or chronic active hepatitis and in 22% of patients with primary biliary cirrhosis. 25-Zmr-723978:49 ANTI-LIVER/KIDNEY MICROSOMAL Comments: PATIENT NOT FASTINGPERFORMED BY: [employer] [facility] [id number] ANTIBODY (98331) Thyroid Peroxidase (TPO) Ab 9 {IU/mL} (Normal) Range: 0-34 23-Amr-890746:49 LOLITA (ANTINUCLEAR ANTIBODY) Comments: PATIENT NOT FASTINGPERFORMED BY: iDiDiDInspira Medical Center WoodburyAapcul1588 [facility] [id number] (68329) LOLITA Direct Negative (Normal) 73-Bjl-971831:49 TSH (52418) Comments: PATIENT NOT FASTINGPERFORMED BY: iDiDiDGallup Indian Medical CenterCmlkvg1119 [facility] [id number] TSH 1.520 {uIU/mL} (Normal) Range: 0.450-4.500 86-Zeu-496402:49 T4, FREE (THYROXINE) (80814) Comments: PATIENT NOT FASTINGPERFORMED BY: iDiDiDInspira Medical Center WoodburyOpjycq7204 [facility] [id number] T4,Free(Direct) 0.97 ng/dL (Normal) Range: 0.82-1.77 33-Cgi-573182:49 T3, FREE (TRIDOTHYRONINE) (07935) Comments: PATIENT NOT FASTINGPERFORMED BY: [facility] NetworksSelect [facility] Hospital6370 [facility] [id number] Triiodothyronine,Free,Serum 3.2 pg/mL (Normal) Range: 2.0-4.4 94-Iea-388815:23 Throat Culture (28659) Comments: PATIENT NOT FASTINGPERFORMED BY: [facility] NetworksSelect [facility] Hospital6370 [facility] [id number] Information: SRC:THRT [id number] Result 1 RRF (Normal) Comments: Routine respiratory edith Upper Respiratory Culture Final report (Normal) 28-Vyb-42267:36 Rapid Strep Test, Office (86373) Rapid Strep Test, Office Negative (Normal) 34-Oxu-33108:38 CALCIFEDIOL (29502) Comments: PATIENT WAS FASTINGPERFORMED BY: Youjia Wppguc9201 [facility] [id number] Vitamin D, 25-Hydroxy 16.2 ng/mL (Abnormal) Range: 30.0-100.0 Comments: Vitamin D deficiency has been defined by the [place] of[place] and an Endocrine Society practice guideline as alevel of serum 25-OH vitamin D less than 20 ng/mL (1,2).The Endocrine Society went on to further define vitamin Dinsufficiency as a level between 21 and 29 ng/mL (2).1. IOM ([place] of [employer]). 2010. Dietary reference intakes for calcium and D. [place]: The National AcademSpectafy Press.2. Myla MF, Javier NC, Panfilo MANN, et al. Evaluation, treatment, and prevention of vitamin D deficiency: an Endocrine Society clinical practice guideline. JCEM. 2010; 96(7):1911-30. :38 Lipid Panel (52037) Comments: PATIENT WAS FASTINGPERFORMED BY: iDiDiD Hflgtv7885 [facility] [id number] Information: [id number] LDL/HDL Ratio 3.8 {ratio_units} (Abnormal) Range: 0.0-3.2 Comments: LDL/HDL Ratio Men Women 1/2 Avg.Risk 1.0 1.5 Av g.Risk 3.6 3.2 2X Avg.Risk 6.2 5.0 3X Avg.Risk 8.0 6.1 LDL Cholesterol Calc 196 mg/dL (Abnormal) Range: 0-99 VLDL Cholesterol [place] 30 mg/dL (Normal) Range: 5-40 HDL Cholesterol 51 mg/dL (Normal) Comments: According to ATP-III Guidelines, HDL-C >59 mg/dL is considered anegative risk factor for CHD. Triglycerides 151 mg/dL (Abnormal) Range: 0-149 Cholesterol, Total 277 mg/dL (Abnormal) Range: 100-199 :38 HEPATIC FUNCTION PANEL Comments: PATIENT WAS FASTINGPERFORMED BY: Broken Buylin6370 [facility] [id number] (51875) ALT (SGPT) 446 [iU]/L (Abnormal) Range: 0-32 AST (SGOT) 119 [iU]/L (Abnormal) Range: 0-40 Alkaline Phosphatase, S 176 [iU]/L (Abnormal) Range: 39-117 Bilirubin, Direct 0.59 mg/dL (Abnormal) Range: 0.00-0.40 Bilirubin, Total 1.2 mg/dL (Normal) Range: 0.0-1.2 Albumin, Serum 4.2 g/dL (Normal) Range: 3.5-5.5 Protein, Total, Serum 7.0 g/dL (Normal) Range: 6.0-8.5 06-Syv-750120:24 Metabolic Panel, Comprehensive Comments: PATIENT NOT FASTINGPERFORMED BY: [facility] Efhuya1560 [facility] [id number] (36769) ALT (SGPT) 40 [iU]/L (Abnormal) Range: 0-32 AST (SGOT) 20 [iU]/L (Normal) Range: 0-40 Alkaline Phosphatase, S 97 [iU]/L (Normal) Range: 39-117 Bilirubin, Total 0.3 mg/dL (Normal) Range: 0.0-1.2 A/G Ratio 1.7 (Normal) Range: 1.1-2.5 Albumin, Serum 4.3 g/dL (Normal) Range: 3.5-5.5 Globulin, Total 2.6 g/dL (Normal) Range: 1.5-4.5 Protein, Total, Serum 6.9 g/dL (Normal) Range: 6.0-8.5 Calcium, Serum 9.5 mg/dL (Normal) Range: 8.7-10.2 Carbon Dioxide, Total 25 mmol/L (Normal) Range: 18-29 Chloride, Serum 101 mmol/L (Normal) Range: 97-108 Potassium, Serum 3.8 mmol/L (Normal) Range: 3.5-5.2 Sodium, Serum 142 mmol/L (Normal) Range: 134-144 BUN/Creatinine Ratio 16 (Normal) Range: 9-23 eGFR If Africn Am 102 mL/min/1.73 (Normal) eGFR If NonAfricn Am 89 mL/min/1.73 (Normal) Creatinine, Serum 0.79 mg/dL (Normal) Range: 0.57-1.00 BUN 13 mg/dL (Normal) Range: 6-24 Glucose, Serum 108 mg/dL (Abnormal) Range: 65-99 71-Hmg-797504:24 CBC, Platelets & Auto Comments: PATIENT NOT FASTINGPERFORMED BY: CHUY iDiDiDemma Xgrsml4938 [facility] [id number] Information: [id number] Diff (02724) Immature Grans (Abs) 0.0 {x10E3/uL} (Normal) Range: 0.0-0.1 Immature Granulocytes 0 % (Normal) Range: 0-2 Baso (Absolute) 0.0 {x10E3/uL} (Normal) Range: 0.0-0.2 Eos (Absolute) 0.2 {x10E3/uL} (Normal) Range: 0.0-0.4 Lymphs (Absolute) 3.5 {x10E3/uL} (Abnormal) Range: 0.7-3.1 Monocytes(Absolute) 0.6 {x10E3/uL} (Normal) Range: 0.1-0.9 Neutrophils (Absolute) 5.8 {x10E3/uL} (Normal) Range: 1.4-7.0 Basos 0 % (Normal) Range: 0-3 Eos 2 % (Normal) Range: 0-5 Lymphs 34 % (Normal) Range: 14-46 Monocytes 6 % (Normal) Range: 4-12 Neutrophils 58 % (Normal) Range: 40-74 Platelets 259 {x10E3/uL} (Normal) Range: 150-379 RDW 15.5 % (Abnormal) Range: 12.3-15.4 MCHC 33.8 g/dL (Normal) Range: 31.5-35.7 MCH 27.1 pg (Normal) Range: 26.6-33.0 MCV 80 fL (Normal) Range: 79-97 Hematocrit 40.5 % (Normal) Range: 34.0-46.6 Hemoglobin 13.7 g/dL (Normal) Range: 11.1-15.9 RBC 5.06 {x10E6/uL} (Normal) Range: 3.77-5.28 WBC 10.1 {x10E3/uL} (Normal) Range: 3.4-10.8 99-Mhd-241298:09 URINE KENROY CULTURE-IDENTIFICATN Comments: PATIENT NOT FASTINGPERFORMED BY: [place] [id number] [facility] [id number] Information: [id number] (14033) Result 1 MUG (Normal) Comments: Mixed urogenital flora1,000 Colonies/mL Urine Culture,Comprehensive Final report (Normal) 71-Enn-231339:21 Urinalysis, Office (84869) UA - LEUKOCYTE ESTERASE Trace (Normal) UA - NITRITE Negative (Normal) URINE UROBILINGN JUAN TIMED Normal mg/dL (Normal) UA - PROTEIN Negative mg/dL (Normal) UA - PH 6 (Abnormal) UA - BLOOD Negative (Normal) UA - SPECIFIC GRAVITY 1.025 (Normal) UA - KETONES Negative mg/dL (Normal) UA - BILIRUBIN Negative (Normal) UA - GLUCOSE Negative (Normal) 63-Xcb-198520:39 HEPATITIS B SURFACE ANTIBODY Comments: PATIENT NOT FASTINGPERFORMED BY: [address] [id number] (09700) Hep B Surface Ab, Qual Non Reactive (Normal) Comments: Non Reactive: Inconsistent with immunity, less than 10 mIU/mL Reactive: Consistent with immunity, greater than 9.9 mIU/mL 22-Syh-773139:39 HEPATITIS PANEL (63872) Comments: PATIENT NOT FASTINGPERFORMED BY: [address] [id number] Information: [id number] Hep C Virus Ab 0.2 {s/co_ratio} (Normal) Range: 0.0-0.9 Comments: Negative: < 0.8 Indeterminate 0.8 - 0.9 Positive: > 0.9 . In order to reduce the incidence of a false positive result, the CDC recommends that all s/co ratios between 1.0 and 10.9 be confirmed by a more specific supplemental or PCR testing. [facility] offers HCV Ab w/Reflex to Verification test #[id number]. Hep B Core Ab, IgM Negative (Normal) HBsAg Screen Negative (Normal) Hep A Ab, IgM Negative (Normal) 62-Ddu-969767:39 CXDLA-NUTTGXNTIFG-RPIML (25614) Comments: PATIENT NOT FASTINGPERFORMED BY: [address] [id number] AFP, Serum, Tumor Marker 2.8 ng/mL (Normal) Range: 0.0-8.3 Comments: Ozzie ECLIA methodology :59 CBC, Platelets & Auto Diff Comments: PATIENT NOT FASTINGPERFORMED BY: CHUY [facility] Eltyoo4048 Nola Cuellar [place] [id number] Information: [id number] (63922) Immature Grans (Abs) 0.0 {x10E3/uL} (Normal) Range: 0.0-0.1 Immature Granulocytes 0 % (Normal) Range: 0-2 Baso (Absolute) 0.0 {x10E3/uL} (Normal) Range: 0.0-0.2 Eos (Absolute) 0.3 {x10E3/uL} (Normal) Range: 0.0-0.4 Monocytes(Absolute) 0.5 {x10E3/uL} (Normal) Range: 0.1-0.9 Lymphs (Absolute) 3.5 {x10E3/uL} (Abnormal) Range: 0.7-3.1 Neutrophils (Absolute) 5.8 {x10E3/uL} (Normal) Range: 1.4-7.0 Basos 0 % (Normal) Range: 0-3 Eos 3 % (Normal) Range: 0-5 Monocytes 5 % (Normal) Range: 4-12 Lymphs 34 % (Normal) Range: 14-46 Neutrophils 58 % (Normal) Range: 40-74 Platelets 243 {x10E3/uL} (Normal) Range: 155-379 RDW 15.1 % (Normal) Range: 12.3-15.4 MCHC 32.4 g/dL (Normal) Range: 31.5-35.7 MCH 27.0 pg (Normal) Range: 26.6-33.0 MCV 83 fL (Normal) Range: 79-97 Hematocrit 41.1 % (Normal) Range: 34.0-46.6 Hemoglobin 13.3 g/dL (Normal) Range: 11.1-15.9 RBC 4.93 {x10E6/uL} (Normal) Range: 3.77-5.28 WBC 10.1 {x10E3/uL} (Normal) Range: 3.4-10.8 :59 Metabolic Panel, Comprehensive Comments: PATIENT NOT FASTINGPERFORMED BY: [facility]CoIn[facility] WoodburyKqwnmh9583 [facility]perAt[facility] [id number] (47060) ALT (SGPT) 27 [iU]/L (Normal) Range: 0-32 AST (SGOT) 20 [iU]/L (Normal) Range: 0-40 Alkaline Phosphatase, S 81 [iU]/L (Normal) Range: 39-117 Bilirubin, Total 0.2 mg/dL (Normal) Range: 0.0-1.2 A/G Ratio 1.6 (Normal) Range: 1.1-2.5 Globulin, Total 2.6 g/dL (Normal) Range: 1.5-4.5 Albumin, Serum 4.1 g/dL (Normal) Range: 3.5-5.5 Protein, Total, Serum 6.7 g/dL (Normal) Range: 6.0-8.5 Calcium, Serum 9.4 mg/dL (Normal) Range: 8.7-10.2 Carbon Dioxide, Total 24 mmol/L (Normal) Range: 19-28 Chloride, Serum 106 mmol/L (Normal) Range: 97-108 Potassium, Serum 4.6 mmol/L (Normal) Range: 3.5-5.2 Sodium, Serum 144 mmol/L (Normal) Range: 134-144 BUN/Creatinine Ratio 14 (Normal) Range: 9-23 eGFR If Africn Am 99 mL/min/1.73 (Normal) eGFR If NonAfricn Am 86 mL/min/1.73 (Normal) Creatinine, Serum 0.81 mg/dL (Normal) Range: 0.57-1.00 BUN 11 mg/dL (Normal) Range: 6-24 Glucose, Serum 125 mg/dL (Abnormal) Range: 65-99 4-Zis-775098:08 Urinalysis, Office (86127) UA - LEUKOCYTE ESTERASE Moderate (Normal) UA - NITRITE Positive (Normal) URINE UROBILINGN JUAN TIMED Normal mg/dL (Normal) UA - PROTEIN Negative mg/dL (Normal) UA - PH 6 (Abnormal) UA - BLOOD non-hemolyzed trace (Normal) UA - SPECIFIC GRAVITY 1.020 (Normal) UA - KETONES Negative mg/dL (Normal) UA - BILIRUBIN Negative (Normal) UA - GLUCOSE Negative (Normal) 64-Kkl-108138:41 Urinalysis, Office (72953) UA - BILIRUBIN Negative (Normal) UA - BLOOD Negative (Normal) UA - GLUCOSE Negative (Normal) UA - KETONES Negative mg/dL (Normal) UA - LEUKOCYTE ESTERASE Negative (Normal) UA - NITRITE Negative (Normal) UA - PH 7.0 (Normal) UA - PROTEIN Negative mg/dL (Normal) UA - SPECIFIC GRAVITY 1.020 (Normal) URINE UROBILINGN JUAN TIMED Normal mg/dL (Normal) 16-Vpu-38335:34 KENROY CULTURE-OTHER (87347) Comments: PATIENT NOT FASTINGPERFORMED BY: [address] [id number] Information: SRC: THROAT Result 1 RRF (Normal) Comments: Routine respiratory edith Upper Respiratory Culture Final report (Normal) 06-Qyy-507495:20 BMBEH-WIENTJKTMII-NVLKR (03838) Comments: PATIENT NOT FASTINGPERFORMED BY: [address] [id number] AFP, Serum, Tumor Marker 2.6 ng/mL (Normal) Range: 0.0-8.3 Comments: Ozzie ECLIA methodology 57-Wak-154179:20 PTT (Activated Partial Comments: PATIENT NOT FASTINGPERFORMED BY: [address] [id number] Thromboplastin Time) (48249) aPTT 31 {sec} (Normal) Range: 24-33 Comments: This test has not been validated for monitoring unfractionated heparintherapy. aPTT-based therapeutic ranges for unfractionated heparintherapy have not been established. For general guidelines onHeparin monitoring, refer to the [facility] Directory of Services. 30-Wdy-648271:20 PT (Prothrobim Time) (27912) Comments: PATIENT NOT FASTINGPERFORMED BY: [place] [id number] [facility] [id number] INR 1.0 (Normal) Range: 0.8-1.2 Comments: Reference interval is for non-anticoagulated patients. . Suggested INR therapeutic range for Vitamin K anta gonist therapy: Standard Dose (moderate intensity therapeutic range): 2.0 - 3.0 Higher intensity therapeutic range 2.5 - 3.5 Prothrombin Time 10.3 {sec} (Normal) Range: 9.1-12.0 02-Bms-956892:20 CBC WITH MANUAL DIFF Comments: PATIENT NOT FASTINGPERFORMED BY: CHUY [facility]CoIn[facility] WoodburyBkhtaf7542 [facility] [id number] Information: [id number] (83345) Immature Grans (Abs) 0.0 {x10E3/uL} (Normal) Range: 0.0-0.1 Immature Granulocytes 0 % (Normal) Range: 0-2 Baso (Absolute) 0.0 {x10E3/uL} (Normal) Range: 0.0-0.2 Eos (Absolute) 0.2 {x10E3/uL} (Normal) Range: 0.0-0.4 Monocytes(Absolute) 0.6 {x10E3/uL} (Normal) Range: 0.1-1.0 Lymphs (Absolute) 3.9 {x10E3/uL} (Normal) Range: 0.7-4.5 Neutrophils (Absolute) 7.4 {x10E3/uL} (Normal) Range: 1.8-7.8 Basos 0 % (Normal) Range: 0-3 Eos 2 % (Normal) Range: 0-7 Monocytes 5 % (Normal) Range: 4-13 Lymphs 32 % (Normal) Range: 14-46 Neutrophils 61 % (Normal) Range: 40-74 Platelets 273 {x10E3/uL} (Normal) Range: 140-415 RDW 15.6 % (Abnormal) Range: 12.3-15.4 MCHC 34.0 g/dL (Normal) Range: 31.5-35.7 MCH 27.3 pg (Normal) Range: 26.6-33.0 MCV 80 fL (Normal) Range: 79-97 Hematocrit 40.3 % (Normal) Range: 34.0-46.6 Hemoglobin 13.7 g/dL (Normal) Range: 11.1-15.9 RBC 5.01 {x10E6/uL} (Normal) Range: 3.77-5.28 WBC 12.1 {x10E3/uL} (Abnormal) Range: 4.0-10.5 99-Xhl-621761:49 GALLBLADDER Radiology Report See Note (Normal) Comments: PROCEDURE: ABDOMINAL ULTRASOUND - RIGHT UPPER QUADRANT REASON FOR VISIT: Female, 47 years old. Abdominal pain. TECHNIQUE: Ultrasound evaluation of the right upper quadrant wasperforme d with real- time and static acharya-scale imaging. TECHNICAL QUALITY: Adequate. COMPARISON: None. FINDINGS: Liver: The liver measures 15.6 cm. There is increased echogenicityconsistent with fatty infiltration. The bile ducts are within normallimits. There is hepatic color flow. The direction of portal flow ishepatopetal. There is no demonstrated mass lesion. Gallbladder: Normal distended gallbladder. T he gallbladder wallmeasures1.8 mm. There is a positive sonographic Ramirez's sign. There is nopericholecystic fluid. There is a solitary echogenic gallstone withinthegallbladder. Common Bile Duct (C.B .D.): The common bile duct measures 4.7 mm. Pancreas: Normal size of the head, body and tail of the pancreas.Thereis normal echogenicity of the pancreas. There is no demonstratedpancreatic mass or cyst. Right Kidney: Normal size of the right kidney. The right hjjxxykluxjqwb75.8 cm. Normal renal cortex. The right cortex measures 1.1 cm. Thereisno demonstrated renal mass or cyst. There is no right hydronephrosis. IMPRESSION:Solitary gallstone.Fatty infiltration of the liver. Signed:Jono Dumont M.D.October 11, 2012 at 2:01:18 PM [id number] Signed GP/GP If you are the referring physician and would like to consult with theradiologist who provided this interpretation, please contact Simone Espino at [phone]. If this radiologist is unavailable, youwi ll be directed to another radiologist to assist. If you are a patient with a question regarding this report, pleasecontactyour referring physician directly. Professional Interpretation Provided By: Cristian craig, Phone , These documents contain legally protected and confidential healthinformation intended only for the use of the individual or entity namedabove. If you are n ot the intended recipient, you are hereby notifiedthatany disclosure, copying, distribution, or other use of these documents isstrictly prohibited. If you have received this information in error,pleasen otify the sender immediately and arrange for the return or destructionofthese documents. Dictated on 10/11/12 1059 by Julia DÍAZ,AdiriKiahranscribed on 10/11/12 1405 by ITS IMPORTSign by Julia DÍAZ,Jono on 10/11/12 1406 Sign by: Julia DÍAZ,Jono 70-Xhk-191456:14 C-REACTIVE PROTEIN (93700) Comments: PATIENT NOT FASTINGPERFORMED BY: CB [facility] Mttlsb3145 [facility] [id number] C-Reactive Protein, Quant 11.5 mg/L (Abnormal) Range: 0.0-4.9 25-Kta-893003:14 SED RATE ERYTHROCYTE (24859) Comments: PATIENT NOT FASTINGPERFORMED BY: CB [facility] Kgbujg7047 [facility] [id number] Sedimentation Rate-Westergren 7 mm/h (Normal) Range: 0-32 44-Qxc-533710:14 CBC WITH MANUAL DIFF Comments: PATIENT NOT FASTINGPERFORMED BY: CB [facility] Povrnb9784 [facility] [id number] Information: [id number] (02372) Immature Grans (Abs) 0.0 {x10E3/uL} (Normal) Range: 0.0-0.1 Immature Granulocytes 0 % (Normal) Range: 0-2 Baso (Absolute) 0.1 {x10E3/uL} (Normal) Range: 0.0-0.2 Eos (Absolute) 0.3 {x10E3/uL} (Normal) Range: 0.0-0.4 Monocytes(Absolute) 0.5 {x10E3/uL} (Normal) Range: 0.1-1.0 Lymphs (Absolute) 4.1 {x10E3/uL} (Normal) Range: 0.7-4.5 Neutrophils (Absolute) 8.1 {x10E3/uL} (Abnormal) Range: 1.8-7.8 Basos 0 % (Normal) Range: 0-3 Eos 2 % (Normal) Range: 0-7 Monocytes 4 % (Normal) Range: 4-13 Lymphs 31 % (Normal) Range: 14-46 Neutrophils 63 % (Normal) Range: 40-74 Platelets 278 {x10E3/uL} (Normal) Range: 140-415 RDW 15.7 % (Abnormal) Range: 12.3-15.4 MCHC 33.3 g/dL (Normal) Range: 31.5-35.7 MCH 27.4 pg (Normal) Range: 26.6-33.0 MCV 82 fL (Normal) Range: 79-97 Hematocrit 41.8 % (Normal) Range: 34.0-46.6 Hemoglobin 13.9 g/dL (Normal) Range: 11.1-15.9 RBC 5.07 {x10E6/uL} (Normal) Range: 3.77-5.28 WBC 13.1 {x10E3/uL} (Abnormal) Range: 4.0-10.5 33-Bmo-096891:14 METABOLIC PANEL, COMPREHENSIVE Comments: PATIENT NOT FASTINGPERFORMED BY: [facility]CoInsp[facility] WoodburyYeuzax3883 [facility] [id number] (97745) ALT (SGPT) 25 [iU]/L (Normal) Range: 0-32 AST (SGOT) 17 [iU]/L (Normal) Range: 0-40 Alkaline Phosphatase, S 74 [iU]/L (Normal) Range: 25-150 Bilirubin, Total 0.4 mg/dL (Normal) Range: 0.0-1.2 A/G Ratio 1.6 (Normal) Range: 1.1-2.5 Globulin, Total 2.8 g/dL (Normal) Range: 1.5-4.5 Albumin, Serum 4.6 g/dL (Normal) Range: 3.5-5.5 Protein, Total, Serum 7.4 g/dL (Normal) Range: 6.0-8.5 Calcium, Serum 9.6 mg/dL (Normal) Range: 8.7-10.2 Carbon Dioxide, Total 24 mmol/L (Normal) Range: 20-32 Chloride, Serum 102 mmol/L (Normal) Range: 97-108 Potassium, Serum 4.0 mmol/L (Normal) Range: 3.5-5.2 Sodium, Serum 142 mmol/L (Normal) Range: 134-144 BUN/Creatinine Ratio 17 (Normal) Range: 9-23 eGFR If Africn Am 99 mL/min/1.73 (Normal) eGFR If NonAfricn Am 85 mL/min/1.73 (Normal) Creatinine, Serum 0.82 mg/dL (Normal) Range: 0.57-1.00 BUN 14 mg/dL (Normal) Range: 6-24 Glucose, Serum 100 mg/dL (Abnormal) Range: 65-99 21-Sep-20129:52 Rapid Flu (29696 x 2) Influenza A Ag pos a (Normal) 6-Lyv-527931:01 Influenza A&B Viral Comments: PATIENT NOT FASTINGPERFORMED BY: YoujiaInspira Medical Center WoodburyHfigwc4048 [facility] [id number] Information: SRC:NOS [id number] Culture (70653) Viral Culture,Rapid,Influenza PFLUA (Abnormal) Comments: PositiveInfluenza A detected.. 9-Gky-778380:40 LIPID PANEL (26637) Comments: PATIENT WAS FASTINGPERFORMED BY: Youjia Zzlmji6439 [facility] [id number] LDL/HDL Ratio 3.0 {ratio_units} (Normal) Range: 0.0-3.2 LDL Cholesterol Calc 103 mg/dL (Abnormal) Range: 0-99 VLDL Cholesterol [place] 33 mg/dL (Normal) Range: 5-40 Cholesterol, Total 170 mg/dL (Normal) Range: 100-199 HDL Cholesterol 34 mg/dL (Abnormal) Comments: According to ATP-III Guidelines, HDL-C >59 mg/dL is considered anegative risk factor for CHD. Triglycerides 163 mg/dL (Abnormal) Range: 0-149 :40 METABOLIC PANEL, Comments: PATIENT WAS FASTINGPERFORMED BY: YoujiaInspira Medical Center WoodburyUxxedj2606 [facility] [id number] Information: [id number] COMPREHENSIVE (82925) ALT (SGPT) 29 [iU]/L (Normal) Range: 0-32 AST (SGOT) 20 [iU]/L (Normal) Range: 0-40 Alkaline Phosphatase, S 65 [iU]/L (Normal) Range: 25-150 Bilirubin, Total 0.4 mg/dL (Normal) Range: 0.0-1.2 A/G Ratio 1.6 (Normal) Range: 1.1-2.5 Globulin, Total 2.7 g/dL (Normal) Range: 1.5-4.5 Albumin, Serum 4.2 g/dL (Normal) Range: 3.5-5.5 Protein, Total, Serum 6.9 g/dL (Normal) Range: 6.0-8.5 Calcium, Serum 9.2 mg/dL (Normal) Range: 8.7-10.2 Carbon Dioxide, Total 26 mmol/L (Normal) Range: 20-32 Chloride, Serum 102 mmol/L (Normal) Range: 97-108 Potassium, Serum 4.0 mmol/L (Normal) Range: 3.5-5.2 Sodium, Serum 142 mmol/L (Normal) Range: 134-144 BUN/Creatinine Ratio 19 (Normal) Range: 9-23 eGFR If Africn Am 112 mL/min/1.73 (Normal) Creatinine, Serum 0.74 mg/dL (Normal) Range: 0.57-1.00 eGFR If NonAfricn Am 97 mL/min/1.73 (Normal) BUN 14 mg/dL (Normal) Range: 6-24 Glucose, Serum 87 mg/dL (Normal) Range: 65-99 57-Knp-69139:35 KENROY CULTURE-OTHER (24985) Comments: PATIENT NOT FASTINGPERFORMED BY: [employer]70 [facility] [id number] Information: SRC:THRT [id number] Result 1 RRF (Normal) Comments: Routine respiratory edith Upper Respiratory Culture Final report (Normal) 95-Ovj-23963:21 Rapid Strep Test, Office (77144) Rapid Strep Test, Office Negative (Normal) 6-Aui-653280:10 CBC With Differential/Platelet Comments: PATIENT WAS FASTINGPERFORMED BY: [employer]70 [facility] [id number] Immature Grans (Abs) 0.0 {x10E3/uL} (Normal) Range: 0.0-0.1 Immature Granulocytes 0 % (Normal) Range: 0-2 Baso (Absolute) 0.0 {x10E3/uL} (Normal) Range: 0.0-0.2 Eos (Absolute) 0.2 {x10E3/uL} (Normal) Range: 0.0-0.4 Monocytes(Absolute) 0.4 {x10E3/uL} (Normal) Range: 0.1-1.0 Lymphs (Absolute) 3.1 {x10E3/uL} (Normal) Range: 0.7-4.5 Neutrophils (Absolute) 5.6 {x10E3/uL} (Normal) Range: 1.8-7.8 Basos 0 % (Normal) Range: 0-3 Eos 2 % (Normal) Range: 0-7 Monocytes 4 % (Normal) Range: 4-13 Lymphs 33 % (Normal) Range: 14-46 Neutrophils 61 % (Normal) Range: 40-74 Platelets 267 {x10E3/uL} (Normal) Range: 140-415 RDW 15.0 % (Normal) Range: 12.3-15.4 MCHC 33.6 g/dL (Normal) Range: 31.5-35.7 MCH 27.5 pg (Normal) Range: 26.6-33.0 MCV 82 fL (Normal) Range: 79-97 Hematocrit 43.5 % (Normal) Range: 34.0-46.6 Hemoglobin 14.6 g/dL (Normal) Range: 11.1-15.9 RBC 5.31 {x10E6/uL} (Abnormal) Range: 3.77-5.28 WBC 9.3 {x10E3/uL} (Normal) Range: 4.0-10.5 8-Spa-085287:10 Comp. Metabolic Panel (14) Comments: PATIENT WAS FASTINGPERFORMED BY: [facility]6370 [facility] [id number] ALT (SGPT) 22 [iU]/L (Normal) Range: 0-40 AST (SGOT) 19 [iU]/L (Normal) Range: 0-40 Alkaline Phosphatase, 68 [iU]/L (Normal) Range: 25-150 S Bilirubin, Total 0.3 mg/dL (Normal) Range: 0.0-1.2 A/G Ratio 1.7 (Normal) Range: 1.1-2.5 Globulin, Total 2.6 g/dL (Normal) Range: 1.5-4.5 Albumin, Serum 4.5 g/dL (Normal) Range: 3.5-5.5 Protein, Total, Serum 7.1 g/dL (Normal) Range: 6.0-8.5 Calcium, Serum 9.2 mg/dL (Normal) Range: 8.7-10.2 Carbon Dioxide, Total 22 mmol/L (Normal) Range: 20-32 Chloride, Serum 101 mmol/L (Normal) Range: 97-108 Potassium, Serum 3.9 mmol/L (Normal) Range: 3.5-5.2 Sodium, Serum 142 mmol/L (Normal) Range: 134-144 BUN/Creatinine Ratio 15 (Normal) Range: 9-23 eGFR If Africn Am 121 mL/min/1.73 (Normal) eGFR If NonAfricn Am 105 mL/min/1.73 (Normal) Creatinine, Serum 0.67 mg/dL (Normal) Range: 0.57-1.00 BUN 10 mg/dL (Normal) Range: 6-24 Glucose, Serum 103 mg/dL Range: 65-99 (Abnormal) Hemoglobin A1c 6.1 % (Abnormal) Comments: PATIENT WAS FASTINGPERFORMED BY: mGaadi Eozurj2337 [facility] [id number] Range: 4.8-5.6 Comments: . Increased risk for diabetes: 5.7 - 6.4 Diabetes: >6.4 Glycemic control for adults with diabetes: <7.0 :10 Lipid Panel With LDL/HDL Comments: PATIENT WAS FASTINGPERFORMED BY: [facility]6370 [facility] [id number] Ratio LDL/HDL Ratio 4.3 {ratio_units} (Abnormal) Range: 0.0-3.2 LDL Cholesterol Calc 154 mg/dL (Abnormal) Range: 0-99 VLDL Cholesterol [place] 23 mg/dL (Normal) Range: 5-40 HDL Cholesterol 36 mg/dL (Abnormal) Comments: According to ATP-III Guidelines, HDL-C >59 mg/dL is considered anegative risk factor for CHD. Triglycerides 115 mg/dL (Normal) Range: 0-149 Cholesterol, Total 213 mg/dL (Abnormal) Range: 100-199 :10 Microalb/Creat Ratio, Randm Ur Comments: PATIENT WAS FASTINGPERFORMED BY: mGaadi [id number] [facility] [id number] Microalb/Creat Ratio 6.3 {mg/g_creat} (Normal) Range: 0.0-30.0 Creatinine, Urine 30.4 mg/dL (Normal) Range: 15.0-278.0 Microalbumin, Urine 1.9 ug/mL (Normal) Range: 0.0-17.0 :10 Microscopic Examination Comments: PATIENT WAS FASTINGPERFORMED BY: [facility] HospitalFourandhalfInspira [facility] Center [id number] [facility] [id number] Bacteria Few (Normal) Mucus Threads Present (Normal) Epithelial Cells (non 0-10 {/hpf} Range: 0 - 10 renal) (Normal) RBC None seen {/hpf} Range: 0 - 3 (Normal) WBC 0-5 {/hpf} (Normal) Range: 0 - 5 TSH 2.190 {uIU/mL} Comments: PATIENT WAS FASTINGPERFORMED BY: [facility] NetworksSelect [facility] Hospital6[facility] [id number] :10 (Normal) Range: 0.450-4.500 :10 Urinalysis, Complete Comments: PATIENT WAS FASTINGPERFORMED BY: Ceragon NetworksVictoria Ville [id number] [facility] [id number] Microscopic Examination See below: (Normal) Microscopic Examination MICRON (Normal) Comments: Microscopic follows if indicated. Nitrite, Urine Negative (Normal) Urobilinogen,Semi-Qn 0.2 mg/dL (Normal) Range: 0.0-1.9 Bilirubin Negative (Normal) Occult Blood Negative (Normal) Ketones Negative (Normal) Glucose Negative (Normal) Protein Negative (Normal) WBC Esterase Negative (Normal) Appearance Clear (Normal) Urine-Color Yellow (Normal) pH 7.5 (Normal) Range: 5.0-7.5 Specific [place] 1.008 (Normal) Range: 1.005-1.030 :53 CHEST, PA AND LATERAL Radiology Report See Note (Normal) Comments: PROCEDURE: X-RAY CHEST REASON FOR EXAM: Female, 47 years old. Six-month history of chestpain. TECHNIQUE: PA and lateral views of the chest. COMPARISON: Comparison is made with prior study dated August 30, 2007. FINDINGS: The lungs are expanded. There is no demonstrated parenchymalabnormality.There is calcified old granulomatous disease. There is no demonstratedpleural abnormality. Normal he art and pericardium. Normal mediastinum and rosa. Normal visualized pulmonary arteries.Normalvisualized aortic arch and descending thoracic aorta. Normal visualized thoracic spine. Normal visualized r ibs, clavicles, andshoulders. There is no demonstrated abnormality of the visualized soft tissuestructures of the upper abdomen. IMPRESSION:Normal x-ray examination of the chest. Signed:Jono shah M.D.May 28, 2012 at 3:41:15 PM [id number] Signed GP/GP If you are the referring physician and would like to consult with theradiologist who provided this interpretation, please contact Simone Espino at [phone]. If this radiologist is unavailable, youwill be directed to another radiologist to assist. If you are a patient with a question regarding this report, pl easecontactyour referring physician directly. Professional Interpretation Provided By: Clothes [employer], Phone , These documents contain legally protected and confidential healt hinformation intended only for the use of the individual or entity namedabove. If you are not the intended recipient, you are hereby notifiedthatany disclosure, copying, distribution, or other use of [facility] documents isstrictly prohibited. If you have received this information in error,pleasenotify the sender immediately and arrange for the return or destructionofthese documents. Dictated on 2 1103 by Roaxnne Dumont MDscribed on 05/28/12 1544 by ITS IMPORTSign by Jono Dumont MD on 05/28/12 1545 Sign by: Jono Dumont MD 26-May-20120:00 ABDOMEN/PELVIS WITH CONTRAST Radiology Report See Note (Normal) Comments: PROCEDURE: CT ABDOMEN AND PELVIS WITH CONTRAST REASON FOR EXAM: Female, 47 years old. Bilateral upper abdominal painfor 6 months. Patient has had previous hysterectomy. RADIATION DOSAGE (If Supplie d By Facility): CTDIvol = ( 28 ) mGy, DLP =(3754 ) mGycm TECHNIQUE: Transaxial images were obtained from the dome of thediaphragmto the symphysis pubis with oral contrast. 100 ml of Isovue 300 contr astwas administered. Multiplanar coronal and sagittal images werereformatted. COMPARISON: None. FINDINGS:The visualized lung bases are unremarkable. What is seen of the hearthasa normal enhanced sandra earance without obvious pericardial effusion. Normal enhanced liver. Normal gallbladder and extrahepatic biliarysystem.Normal enhanced spleen. Normal pancreas. Normal bilateral adrenal glands. Normal size of the right kidney. There is no right renal mass. Thereareno right renal calculi. There is no right hydronephrosis. Normalvisualized right ureter. Normal size of the left kidney. There is a s olid left-sided renal massarising from the upper pole of the left kidney that measuresapproximately3.9 cm in size. There are no left renal calculi. There is no lefthydronephrosis. Normal visualized l eft ureter. There is a small hiatal hernia. Normal small intestine. There aremultiple colonic diverticula consistent with diverticulosis. There isnon- visualization of the appendix. There is no demons trated peritoneal fluid. Normal abdominal aorta. Normal inferior vena cava. Normalretroperitoneum. Normal urinary bladder. There is no pelvic mass lesion orlymphadenopathy.There is no pelvic fluid. N ormal abdominal wall. Normal osseous structures. IMPRESSION:1. Solid left sided renal mass is most likely a renal cell carcinoma.2. Small hiatal hernia.3. Mild colonic diverticulosis.4. Hysterectom y. Signed:Joanne Marquez M.D.May 26, 2012 at 9:02:07 PM [phone] Signed AM/AM If you are the referring physician and would like to consult with theradiologist who provided this i nterpretation, please contact Joanne Marquez M.D. at . If this radiologist is unavailable, you will bedirected to another radiologist to assist. If you are a patient with a question regarding this report, pleasecontactyour referring physician directly. Professional Interpretation Provided By: Adamdarshana, Phone , These documents contain legally protected and co nfidential healthinformation intended only for the use of the individual or entity namedabove. If you are not the intended recipient, you are hereby notifiedthatany disclosure, copying, distribution, or other use of these documents isstrictly prohibited. If you have received this information in error,pleasenotify the sender immediately and arrange for the return or destructionofthese documents. Dic tated on 05/26/12823 by Jimmy DÍAZ,AnnaTranscribed on 05/26/122105 by ITS IMPORTSign by Joanne Marquez MD on 05/26/122105 Sign by: Joanne Marquez MD Plan of Care Name Dates Details Instructions BMI 31.0-31.9,adult : Eprescribed prescriptions (G8553) Indication: BMI 31.0-31.9,adult Low blood pressure reading : Follow up tomorrow, as needed Indication: Low blood pressure reading Current nonsmoker : Eprescribed prescriptions (G8553) Indication: Current nonsmoker Impaired Fasting Glucose : Eprescribed prescriptions (G8553) Indication: Impaired Fasting Glucose Soft tissue mass : Eprescribed prescriptions (G8553) Indication: Soft tissue mass Current nonsmoker : Eprescribed prescriptions (G8553) Indication: Current nonsmoker Impaired Fasting Glucose : Eprescribed prescriptions (G8553) Indication: Impaired Fasting Glucose BMI 39.0-39.9,adult : Eprescribed prescriptions (G8553) Indication: BMI 39.0-39.9,adult [facility] EXAM : Eprescribed prescriptions (G8553) Indication: [facility] EX[facility] Right acute serous otitis media, recurrence not specified : Eprescribed prescriptions (G8553) Indication: Right acute serous otitis media, recurrence not specified Right foot pain : Eprescribed prescriptions (G8553) Indication: Right foot pain BMI 38.0-38.9,adult : Eprescribed prescriptions (G8553) Indication: BMI 38.0-38.9,adult BMI 37.0-37.9, adult : Eprescribed prescriptions (G8553) Indication: BMI 37.0-37.9, adult Otitis media, serous, acute, without rupture, left : Eprescribed prescriptions (G8553) Indication: Otitis media, serous, acute, without rupture, left Current nonsmoker : Eprescribed prescriptions (G8553) Indication: Current nonsmoker Impaired Fasting Glucose : Eprescribed prescriptions (G8553) Indication: Impaired Fasting Glucose Acute pain of left shoulder : Eprescribed prescriptions (G8553) Indication: Acute pain of left shoulder Current nonsmoker : Eprescribed prescriptions (G8553) Indication: Current nonsmoker Impaired Fasting Glucose : Eprescribed prescriptions (G8553) Indication: Impaired Fasting Glucose [facility] Physical : Eprescribed prescriptions (G8553) Indication: [facility] Physical Acute foot pain, right : Eprescribed prescriptions (G8553) Indication: Acute foot pain, right Hypertension, benign : Eprescribed prescriptions (G8553) Indication: Hypertension, benign Hemorrhoids, unspecified hemorrhoid type : Eprescribed prescriptions (G8553) Indication: Hemorrhoids, unspecified hemorrhoid type Hypertension, benign : Blood Pressure: hypertension Indication: Hypertension, benign Hypertension, benign : Eprescribed prescriptions (G8553) Indication: Hypertension, benign Lymphadenopathy : Eprescribed prescriptions (G8553) Indication: Lymphadenopathy Acute sinusitis, unspecified : *URI Treatment Indication: Acute sinusitis, unspecified Acute sinusitis, unspecified : *URI Symptoms Indication: Acute sinusitis, unspecified Acute sinusitis, unspecified : *Antibiotic Usage Education - Female Indication: Acute sinusitis, unspecified Acute sinusitis, unspecified : Eprescribed prescriptions (G8553) Indication: Acute sinusitis, unspecified Multiple thyroid nodules : Follow up - Make appt after diagnostic tests Indication: Multiple thyroid nodules Lymphadenopathy, supraclavicular : Follow up in 10 days Indication: Lymphadenopathy, supraclavicular Impaired Fasting Glucose : Eprescribed prescriptions (G8553) Indication: Impaired Fasting Glucose Renal cell carcinoma : Follow up if no improvement or if symptoms worsen Indication: Renal cell carcinoma Unspecified bacterial pneumonia : Continue Current Prescription(s) Indication: Unspecified bacterial pneumonia Abnormal lung sounds : Follow up in monday Indication: Abnormal lung sounds Abnormal lung sounds : *Antibiotic Usage Education - Female Indication: Abnormal lung sounds Abnormal lung sounds : MDI Education Indication: Abnormal lung sounds Mixed hyperlipidemia : Diet, Exercise, and Wt loss Indication: Mixed hyperlipidemia Mixed hyperlipidemia : Eprescribed prescriptions (G8553) Indication: Mixed hyperlipidemia Mixed hyperlipidemia : Eprescribed prescriptions (G8553) Indication: Mixed hyperlipidemia Mixed hyperlipidemia : Eprescribed prescriptions (G8553) Indication: Mixed hyperlipidemia Hiatal hernia : Reviewed Diagnostic Tests Indication: Hiatal hernia Vitamin D deficiency : Reviewed Lab Indication: Vitamin D deficiency Elevated liver enzymes : Eprescribed prescriptions (G8553) Indication: Elevated liver enzymes Elevated liver enzymes : Reviewed Diagnostic Tests Indication: Elevated liver enzymes Gastro-esophageal reflux disease without esophagitis : GERD Education Indication: Gastro-esophageal reflux disease without esophagitis Mixed hyperlipidemia : Follow up in 2 weeks Indication: Mixed hyperlipidemia Mixed hyperlipidemia : Reviewed Lab Indication: Mixed hyperlipidemia Vitamin D deficiency : Reviewed Lab Indication: Vitamin D deficiency Elevated liver enzymes : Reviewed Lab Indication: Elevated liver enzymes Joint pain : Follow up in 4 weeks Indication: Joint pain Elevated liver enzymes : Reviewed Lab Indication: Elevated liver enzymes Elevated liver enzymes : Reviewed Diagnostic Tests Indication: Elevated liver enzymes Abdominal pain, lower : Follow up in 2 weeks Indication: Abdominal pain, lower Constipation : Celiac Disease and the Gluten-Free Diet: celiac disease Indication: Constipation Blurred vision : Follow up if no improvement or if symptoms worsen Indication: Blurred vision Conjunctivitis, allergic : Reviewed Lab Indication: Conjunctivitis, allergic Renal cyst : Reviewed Diagnostic Tests Indication: Renal cyst Fatty liver : Reviewed Lab Indication: Fatty liver H/O partial nephrectomy : Follow up in 1 week Indication: H/O partial nephrectomy H/O partial nephrectomy : Reviewed Diagnostic Tests Indication: H/O partial nephrectomy H/O partial nephrectomy : Reviewed Product Director Letter Indication: H/O partial nephrectomy Abdominal pain, acute, right upper quadrant : Reviewed Diagnostic Tests Indication: Abdominal pain, acute, right upper quadrant Hemorrhoids, unspecified hemorrhoid type : Hemorrhoid Banding: banding Indication: Hemorrhoids, unspecified hemorrhoid type Hemorrhoids, unspecified hemorrhoid type : Hemorrhoid Banding: anus Indication: Hemorrhoids, unspecified hemorrhoid type NEED FOR PROPHYLACTIC VACCINATION AND INOCULATION AGAINST INFLUENZA (V04.81) (Renamed from Need for prophylactic vaccination and inoculation against influenza) : Flu (Influenza) *: flu shot Indication: NEED FOR PROPHYLACTIC VACCINATION AND INOCULATION AGAINST INFLUENZA (V04.81) (Renamed from Need for prophylactic vaccination and inoculation against influenza) H/O partial nephrectomy : Follow up in 2 weeks Indication: H/O partial nephrectomy ALLERGIC RHINITIS DUE TO OTHER ALLERGEN : Allergy proofing Indication: ALLERGIC RHINITIS DUE TO OTHER ALLERGEN ALLERGIC RHINITIS DUE TO OTHER ALLERGEN : Allergy control Indication: ALLERGIC RHINITIS DUE TO OTHER ALLERGEN ALLERGIC RHINITIS DUE TO OTHER ALLERGEN : *URI Symptoms Indication: ALLERGIC RHINITIS DUE TO OTHER ALLERGEN Gallstone : Gallstones *: abdominal pain Indication: Gallstone Acute sinusitis, unspecified : *Antibiotic Usage Education - Female Indication: Acute sinusitis, unspecified Cough : Cough: cough Indication: Cough Influenza A (H1N1) : Flu (Influenza) *: flu Indication: Influenza A (H1N1) Influenza A (H1N1) : Follow up as needed Indication: Influenza A (H1N1) Impaired Fasting Glucose : *Diabetes Education Indication: Impaired Fasting Glucose Impaired Fasting Glucose : Diet, Exercise, and Wt loss Indication: Impaired Fasting Glucose Renal cell carcinoma : Abdominal Pain: pain Indication: Renal cell carcinoma Allergic rhinitis : Follow up if no improvement or if symptoms worsen Indication: Allergic rhinitis ACUTE PHARYNGITIS (462.) : Sore throat: diagnosis and treatment Indication: ACUTE PHARYNGITIS (462.) Abdominal pain, acute, generalized : Abdominal Pain: abdominal pain Indication: Abdominal pain, acute, generalized Planned Observations urine immunofixation (24877)Indication: Abnormal blood chemistry On: 27-Jul-20189:35 Request serum immunofixation (92405)Indication: Abnormal blood chemistry On: 27-Jul-20189:35 Request MICROALBUMIN: CREATININE RATIO (71321) AND (06036)Indication: Hypertension, benign On: 3-Ogj-455069:06 Request IMMUNOGLOBULIN E (IgE) (26146)Indication: Acute bronchitis On: :06 Request LIPID PANEL (43232)Indication: Mixed hyperlipidemia On: :40 Request JOBSH-[id number]-QSZDV (35859)Indication: Fatty liver On: 1-Zee-046544:40 Request HGB A1C (61877)Indication: Impaired Fasting Glucose On: :40 Request METABOLIC PANEL, COMPREHENSIVE (11076)Indication: Impaired Fasting Glucose On: :40 Request CBC (AUTO) (66243)Indication: Impaired Fasting Glucose On: 15-Rtg-508356:49 Request Vitamin D Hydroxy (51506)Indication: Vitamin D deficiency On: 96-Nfq-568611:48 Request METABOLIC PANEL, COMPREHENSIVE (55451)Indication: Mixed hyperlipidemia On: :48 Request LIPOPROTEIN, BLD, BY NMR (86031)Indication: Mixed hyperlipidemia On: :48 Request JASLQ-AWKJUDALBOG-WNREQ (15784)Indication: Acute foot pain, right On: 31-Kwi-628702:38 Request Vitamin D Hydroxy (31385)Indication: Vitamin D deficiency On: :50 Request SZRMU-QWXEPDDRVKK-DZNOL (96077)Indication: Fatty liver On: :50 Request METABOLIC PANEL, COMPREHENSIVE (85616)Indication: Impaired Fasting Glucose On: :49 Request MICROALBUMIN: CREATININE RATIO (20753) AND (98292)Indication: Impaired Fasting Glucose On: :49 Request HGB A1C (83136)Indication: Impaired Fasting Glucose On: :49 Request LIPID PANEL (32208)Indication: Mixed hyperlipidemia On: :49 Request LIPID PANEL (78442)Indication: Mixed hyperlipidemia On: 38-Dta-003069:00 Request MICROALBUMIN: CREATININE RATIO (75525) AND (11420)Indication: Impaired Fasting Glucose On: 60-Fat-148883:00 Request Hemoglobin Glyclated (HGB A1C) (94461)Indication: Impaired Fasting Glucose On: 18-Uri-368289:00 Request Vitamin D Hydroxy (09246)Indication: Vitamin D deficiency On: 21-Kqu-174825:00 Request Vitamin D Hydroxy (31325)Indication: Vitamin D deficiency On: :11 Request CBC with auto diff (15620)Indication: Hypertension, benign On: 94-Xcm-948679:11 Request METABOLIC PANEL, COMPREHENSIVE (19554)Indication: Impaired Fasting Glucose On: 81-Pch-955751:10 Request MICROALBUMIN: CREATININE RATIO (70052) AND (26951)Indication: Impaired Fasting Glucose On: 17-Tbj-613460:10 Request Hemoglobin Glyclated (HGB A1C) (88657)Indication: Impaired Fasting Glucose On: 19-Ukb-701374:10 Request LIPID PANEL (78861)Indication: Mixed hyperlipidemia On: 81-Vgp-134176: Request YHUUD-YKTTOOVHRUJ-EWBSP (48624)Indication: Fatty liver On: 61-Mxx-433519:10 Request Vitamin D Hydroxy (21268)Indication: Vitamin D deficiency On: 6-Clt-295485:15 Request Hemoglobin Glyclated (HGB A1C) (86610)Indication: Impaired Fasting Glucose On: 3-Xoc-273277:14 Request METABOLIC PANEL, COMPREHENSIVE (97859)Indication: Impaired Fasting Glucose On: 4-Wwq-332777:14 Request LIPID PANEL (84447)Indication: Mixed hyperlipidemia On: 7-Mry-009546:14 Request Lipid Panel (38558)Indication: Elevated liver enzymes On: 24-Jne-312033:47 Request HEPATIC FUNCTION PANEL (69386)Indication: Mixed hyperlipidemia On: 86-Kgs-672498:08 Request CALCIFEDIOL (61181)Indication: Unspecified Diagnosis On: :53 Request Lipid Panel (83795)Indication: Unspecified Diagnosis On: 20-Xvi-59237:53 Request Lipid Panel (16156)Indication: SCREENING FOR HYPERLIPIDEMIA (Renamed from Encounter for screening for lipoid disorders) On: 80-Chq-506703:34 Request Comments: To be drawn Fasting Mar 2014 METABOLIC PANEL, COMPREHENSIVE (27944)Indication: Left knee pain On: 91-Yus-004296:39 Request CCP ANTIBODY (48416)Indication: Left knee pain On: 69-Aqy-858762:39 Request SED RATE ERYTHROCYTE (26181)Indication: Left knee pain On: 75-Lcc-392800:39 Request C-REACTIVE PROTEIN (92258)Indication: Left knee pain On: 37-Wdy-324539:39 Request TSH (62463)Indication: Left knee pain On: 24-Jox-986932:39 Request RHEUMATOID FACTOR-QUANT (28738)Indication: Left knee pain On: 39-Fhr-445328:39 Request Rapid Strep Test, Office (71604)Indication: ACUTE PHARYNGITIS (462.) On: 91-Nbm-80701:20 Request C-REACT PROT HIGH SENS(hsCRP) (45334)Indication: Hypertension, benign On: 35-Owo-153039:16 Request Sed Rate Erythrocyte (09649)Indication: Hypertension, benign On: 19-Zlv-905190:16 Request CBC with manual diff (07591)Indication: Hypertension, benign On: 98-Yxm-514345:16 Request TSH (25683)Indication: Chest pain On: :33 Request CBC WITH MANUAL DIFF (19208)Indication: Chest pain On: 29-May-20128:33 Request MICROALBUMIN: CREATININE RATIO (06753) AND (29422)Indication: Hypertension, benign On: :47 Request URINALYSIS, W/ MICRO (60280)Indication: Hypertension, benign On: :47 Request Hemoglobin Glyclated (HGB A1C) (91563)Indication: Obesity, unspecified On: :47 Request LIPID PANEL (85665)Indication: Mixed hyperlipidemia On: :46 Request METABOLIC PANEL, COMPREHENSIVE (42685)Indication: Hypertension, benign On: :46 Request Planned Encounters Medical; [facility] Exam (Doctor) - On: 20-Aug-2018 13:30 [facility] Fast DO, Marcelle A Fast DO, Marcelle A Planned Procedures ELECTROCARDIOGRAM, COMPLETE (ECG) On: 26-Jul-2018 Intent (77905)By: Catalina Corona Comments: Normal Sinus Rhythm-HR 67 ORTHOSTATIC BLOOD PRESSURE On: 26-Jul-2018 Intent ASSESSMENT (26092)By: Catalina Corona Comments: Layin/68 HR 60Sittin/70 MW82Ntpneqqi: 84/66 HR 90 Flu Vaccine (Quadrivalent) 44944Va: On: 30-Apr-2018 Intent Fast DO, Marcelle A Fast DO, Marcelle A Comments: Lot #[id number]-L dltd, IMDose prefilled syringegiven by: Marta AVINA reviewed and ABN signed MAGNETIC RESONANCE IMAGING OF RIGHT On: 07-Mar-2018 Intent CALF WITHOUT THEN WITH CONTRAST (06872)By: Sara Henry Doppler Ultrasound OtherBy: Fast DO, On: 06-Mar-2018 Intent Marcelle A Fast DO, Marcelle A Comments: right leg- stat CT - Abdomen & Pelvis (IV Contrast On: 31-Jan-2018 Intent Needed)By: Fast DO, Marcelle A Fast DO, Comments: with and without contrast Marcelle A Ultrasound - ThyroidBy: Fast DO, On: 16-Oct-2017 Intent Marcelle A Fast DO, Marcelle A ELECTROCARDIOGRAM, COMPLETE (ECG) On: 20-Jun-2017 Intent (68452)By: Fast DO, Marcelle A Fast DO, Marcelle A SCREENING DIGITAL TOMOSYNTHESIS OF On: 20-Jun-2017 Intent BREAST (68736)By: Fast DO, Marcelle A Fast DO, Marcelle A Flu Vaccine (Quadrivalent) 10819Ve: On: 20-Jun-2017 Intent Fast DO, Marcelle A Fast DO, Marcelle A Comments: lot: [id number]: 02/05/18site/route: L blayne, IMamt: 0.5mlVIS and ABN signed when applicableChelsea, DANCE PROFESSOR Doppler Ultrasound OtherBy: Fast DO, On: 28-Apr-2017 Intent Marcelle A Fast DO, Marcelle A Comments: rightleg today call results Radiology - Knee - Right - Weight On: 28-Apr-2017 Intent BearingBy: Fast DO, Marcelle A Fast DO, Marcelle A Radiology - Foot - RightBy: Fast DO, On: 28-Apr-2017 Intent Marcelle A Fast DO, Marcelle A Comments: attn 2nd 3rd metatarsal pain Ultrasound - LiverBy: Fast DO, Marcelle On: 19-Mar-2017 Intent A Fast DO, Marcelle A B 12 Injection, 1000 mcg (J3420)By: On: 09-Dec-2016 Intent Fast DO, Marcelle A Fast DO, Marcelle A Comments: Lot:[id number]:01/05Dose:1mlRoute:IMSite:l armGiven By:BRIAN signed Aerosol Treatment (11357)By: Fast On: 23-Sep-2016 Intent DO, Marcelle A Fast DO, Marcelle A Comments: with albuterol Ultrasound - ThyroidBy: Fast DO, On: 29-Aug-2016 Intent Marcelle A Fast DO, Marcelle A Radiology - Shoulder - LeftBy: Fast On: 16-May-2016 Intent DO, Marcelle A Fast DO, Marcelle A Comments: with ac joint please DEXA SCAN AXIAL SKELETON (22165)By: On: 16-May-2016 Intent Fast DO, Marcelle A Fast DO, Marcelle A MAMMOGRAM, SCREENING, BOTH BREAST On: 16-May-2016 Intent (19025)By: Fast DO, Marcelle A Fast DO, Marcelle A ELECTROCARDIOGRAM, COMPLETE (ECG) On: 16-May-2016 Intent (06321)By: Fast DO, Marcelle A Fast DO, Comments: ekg showed normal sinus rhythym, normal axis, no acute st/t wave changes slight prolong qt Marcelle A Flu Vaccine (Quadrivalent) 44170Gf: On: 16-May-2016 Intent Fast DO, Marcelle A Fast DO, Marcelle A Comments: Lot #:[id number] date:02/17/17mount given:0.5mlRoute: IMSite given: left deltoidGiven by: THERESA Burch ADMINISTRATION OF INFLUENZA VIRUS On: 16-May-2016 Intent VACCINE (G0008)By: Fast DO, Marcelle A Fast DO, Marcelle A Radiology - Foot - RightBy: Fast DO, On: 16-Mar-2016 Intent Marcelle A Fast DO, Marcelle A CT - Chest (Without Contrast)By: On: 18-Sep-2015 Intent Fast DO, Marcelle A Fast DO, Marcelle A Comments: attn left suproaclavicular Ultrasound - ThyroidBy: Fast DO, On: 18-Sep-2015 Intent Marcelle A Fast DO, Marcelle A Ultrasound - ThyroidBy: Felix BACH, On: 27-May-2015 Intent Sally Radiology - ChestBy: Felix BACH Vivian On: 18-May-2015 Intent E MAMMOGRAM, SCREENING, BOTH BREAST On: 15-May-2015 Intent (38864)By: Fast DO, Marcelle A Fast DO, Marcelle A Flu Vaccine (Quadrivalent) 56218Zn: On: 15-May-2015 Intent Fast DO, Marcelle A Fast DO, Marcelle A Comments: Lot:[id number]/03Dose:0.5mLRoute:IMSite:L DltdGiven By:AZEB Kennedy signed ADMINISTRATION OF INFLUENZA VIRUS On: 15-May-2015 Intent VACCINE (G0008)By: Fast DO, Marcelle A Fast DO, Marcelle A EKG (59981)By: Fast DO, Marcelle A On: 06-Feb-2015 Intent Fast DO, Marcelle A Comments: ekg showed normal sinus rhythym, normal axis, no acute st/t wave changes lvh no change Aerosol Treatment (44623)By: Christy On: 15-Jan-2015 Intent Jing MATHIS Comments: more a/e - still exp noise on left side only Radiology - Chest- PA and LatBy: On: 15-Jan-2015 Intent Jing Harrison DO Flu Vaccine (Quadrivalent) 55888Kv: On: 20-Jun-2014 Intent Felix BACHVivian ADMINISTRATION OF INFLUENZA VIRUS On: 20-Jun-2014 Intent VACCINE (G0008)By: Felix BACHVivian Ultrasound - ThyroidBy: Christy MATHIS, On: 19-Jun-2014 Intent Jing EsophagramBy: Juany Harrison DOhleen On: 19-Jun-2014 Intent Comments: with [address] - Abdomen & PelvisBy: Dayne BARRON, On: 26-Nov-2013 Intent George Comments: KIDNEY-L CT - PelvisBy: Felix BACH Sally On: 26-Nov-2013 Intent Comments: Attention Left kidney hypodensity L POle, previous L partial nephrectomy Ultrasound - RenalBy: Felix BACH, On: 22-Nov-2013 Intent Vivian Mosqueda Eprescribed prescriptions (G8553)By: On: 16-Jul-2013 Intent Izzykimark BACHVivian IMMUNIZ ADMNIN, 1 VAC, SNGL/COMBO On: 03-Jul-2013 Intent (77517)By: Maty Taveras LPN Comments: Lot #[id number]-L dltd, IMDose prefilled syringegiven by:SIMONE Luque and ABN signed FLU VAC, SPLIT, >3 YEARS, INTRAMUSC On: 03-Jul-2013 Intent (62690)By: Maty Taveras LPN Toradol Injection, 30 mg (J1885)By: On: 31-May-2013 Intent Izzykimark BACH Sally Radiology - Left KneeBy: Felix BACH, On: 31-May-2013 Intent Vivian Mosqueda Eprescribed prescriptions (G8553)By: On: 06-Mar-2013 Intent Sara Henry EKG (08246)By: Marcelle Daley DO On: 15-Oct-2012 Intent Marcelle Daley DO Comments: ekg showed normal sinus rhythym, normal axis, no acute st/t wave changes nsivcd no change Spirometry (58060)By: Andrew MATHIS, On: 15-Oct-2012 Intent Marcelle Blandon Fast DO Marcelle A Comments: good effort and curve normal Radiology - Chest- PA and LatBy: On: 15-Oct-2012 Intent Fast DO, Marcelle A Fast DO, Marcelle A Ultrasound - GallbladderBy: Fast DO, On: 09-Oct-2012 Intent Marcelle A Fast DO, Marcelle A Eprescribed prescriptions (G8553)By: On: 09-Oct-2012 Intent Melania Salcedo Aerosol Treatment (42125)By: Ciesa On: 21-Sep-2012 Intent Vivian BACH Eprescribed prescriptions ([id number])By: On: 20-Jul-2012 Intent Melania Salcedo SPECIMEN HNDLNG/TRNSPRT, OFFC > LAB On: 11-Jul-2012 Intent ([id number])By: George Oscar LPN FLU VAC, SPLIT, >3 YEARS, INTRAMUSC On: 18-May-2012 Intent ([id number])By: Melania Salcedo Comments: Lot:[id number]:prefilledRoute:IMSite:L DltdGiven By:BRIAN signed CT - Abdomen & PelvisBy: Fast DO, On: 18-May-2012 Intent Marcelle A Fast DO, Marcelle A Echo CompleteBy: Fast DO, Marcelle A On: 18-May-2012 Intent Fast DO, Marcelle A Spirometry ([id number])By: Fast DO, On: 18-May-2012 Intent Marcelle A Fast DO, Marcelle A Comments: good effort and curve normal Eprescribed prescriptions ([id number])By: On: 18-May-2012 Intent Fast DO, Marcelle A Fast DO, Marcelle A EKG ([id number])By: Fast DO, Marcelle A On: 18-May-2012 Intent Fast DO, Marcelle A Comments: sinus with deep r waves left axis no acute st t cahnges Radiology - Chest- PA and LatBy: On: 18-May-2012 Intent Fast DO, Marcelle A Fast DO, Marcelle A TD Injection , IM ([id number])By: On: 18-May-2012 Intent Melania Salcedo Comments: received in 2002 IMMUNIZ ADMNIN, 1 VAC, SNGL/COMBO On: 18-May-2012 Intent ([id number])By: Melania Salcedo Planned Medications INJECTION, KETOROLAC TROMETHAMINE, PER 15 MG Ordered: 31-May-2013 Pending Vivian Washington CNP Vitamin B-12 1000 MCG/ML Injection Solution Ordered: 09-Dec-2016 Pending Fast DO, Marcelle A Fast DO, Marcelle A Instructions Name Dates Details BMI 31.0-31.9,adult : How to access health information online Indication: BMI 31.0-31.9,adult BMI 31.0-31.9,adult : How to access health information online - Detail Indication: BMI 31.0-31.9,adult BMI 31.0-31.9,adult : Patient Instructions Indication: BMI 31.0-31.9,adult Current nonsmoker : How to access health information online Indication: Current nonsmoker Current nonsmoker : How to access health information online - Detail Indication: Current nonsmoker Low blood pressure reading : Patient Instructions Indication: Low blood pressure reading Impaired Fasting Glucose : How to access health information online Indication: Impaired Fasting Glucose Impaired Fasting Glucose : How to access health information online - Detail Indication: Impaired Fasting Glucose Impaired Fasting Glucose : Patient Instructions Indication: Impaired Fasting Glucose Soft tissue mass : How to access health information online Indication: Soft tissue mass Soft tissue mass : How to access health information online - Detail Indication: Soft tissue mass Soft tissue mass : Patient Instructions Indication: Soft tissue mass Current nonsmoker : How to access health information online Indication: Current nonsmoker Current nonsmoker : How to access health information online - Detail Indication: Current nonsmoker Current nonsmoker : Patient Instructions Indication: Current nonsmoker Impaired Fasting Glucose : How to access health information online Indication: Impaired Fasting Glucose Impaired Fasting Glucose : How to access health information online - Detail Indication: Impaired Fasting Glucose Impaired Fasting Glucose : Patient Instructions Indication: Impaired Fasting Glucose BMI 39.0-39.9,adult : How to access health information online Indication: BMI 39.0-39.9,adult BMI 39.0-39.9,adult : How to access health information online - Detail Indication: BMI 39.0-39.9,adult BMI 39.0-39.9,adult : Patient Instructions Indication: BMI 39.0-39.9,adult [facility] EXAM : How to access health information online Indication: [facility] EXAM [facility] EXAM : How to access health information online - Detail Indication: [facility] EXAM [facility] EXAM : Patient Instructions Indication: [facility] EXAM Right acute serous otitis media, recurrence not specified : How to access health information online Indication: Right acute serous otitis media, recurrence not specified Right acute serous otitis media, recurrence not specified : How to access health information online - Detail Indication: Right acute serous otitis media, recurrence not specified Right acute serous otitis media, recurrence not specified : Patient Instructions Indication: Right acute serous otitis media, recurrence not specified Right foot pain : How to access health information online Indication: Right foot pain Right foot pain : How to access health information online - Detail Indication: Right foot pain Right foot pain : Patient Instructions Indication: Right foot pain BMI 38.0-38.9,adult : How to access health information online Indication: BMI 38.0-38.9,adult BMI 38.0-38.9,adult : How to access health information online - Detail Indication: BMI 38.0-38.9,adult BMI 38.0-38.9,adult : Patient Instructions Indication: BMI 38.0-38.9,adult BMI 37.0-37.9, adult : How to access health information online Indication: BMI 37.0-37.9, adult BMI 37.0-37.9, adult : How to access health information online - Detail Indication: BMI 37.0-37.9, adult BMI 37.0-37.9, adult : Patient Instructions Indication: BMI 37.0-37.9, adult Otitis media, serous, acute, without rupture, left : How to access health information online Indication: Otitis media, serous, acute, without rupture, left Otitis media, serous, acute, without rupture, left : How to access health information online - Detail Indication: Otitis media, serous, acute, without rupture, left Otitis media, serous, acute, without rupture, left : Patient Instructions Indication: Otitis media, serous, acute, without rupture, left Current nonsmoker : How to access health information online Indication: Current nonsmoker Current nonsmoker : How to access health information online - Detail Indication: Current nonsmoker Current nonsmoker : Patient Instructions Indication: Current nonsmoker Impaired Fasting Glucose : How to access health information online Indication: Impaired Fasting Glucose Impaired Fasting Glucose : How to access health information online - Detail Indication: Impaired Fasting Glucose Impaired Fasting Glucose : Patient Instructions Indication: Impaired Fasting Glucose Acute pain of left shoulder : How to access health information online Indication: Acute pain of left shoulder Acute pain of left shoulder : How to access health information online - Detail Indication: Acute pain of left shoulder Acute pain of left shoulder : Patient Instructions Indication: Acute pain of left shoulder Current nonsmoker : How to access health information online Indication: Current nonsmoker Current nonsmoker : How to access health information online - Detail Indication: Current nonsmoker Current nonsmoker : Patient Instructions Indication: Current nonsmoker Impaired Fasting Glucose : How to access health information online Indication: Impaired Fasting Glucose Impaired Fasting Glucose : How to access health information online - Detail Indication: Impaired Fasting Glucose Impaired Fasting Glucose : Patient Instructions Indication: Impaired Fasting Glucose [facility] Wellness Physical : How to access health information online Indication: [facility] Physical [facility] Physical : How to access health information online - Detail Indication: [facility] Physical [facility] Wellness Physical : Patient Instructions Indication: [facility] Wellness Physical Acute foot pain, right : How to access health information online Indication: Acute foot pain, right Acute foot pain, right : How to access health information online - Detail Indication: Acute foot pain, right Acute foot pain, right : Patient Instructions Indication: Acute foot pain, right Hypertension, benign : How to access health information online - Detail Indication: Hypertension, benign Hypertension, benign : Patient Instructions Indication: Hypertension, benign Hemorrhoids, unspecified hemorrhoid type : How to access health information online Indication: Hemorrhoids, unspecified hemorrhoid type Hemorrhoids, unspecified hemorrhoid type : How to access health information online - Detail Indication: Hemorrhoids, unspecified hemorrhoid type Hemorrhoids, unspecified hemorrhoid type : Patient Instructions Indication: Hemorrhoids, unspecified hemorrhoid type Hypertension, benign : How to access health information online Indication: Hypertension, benign Hypertension, benign : How to access health information online - Detail Indication: Hypertension, benign Hypertension, benign : Patient Instructions Indication: Hypertension, benign Lymphadenopathy : Patient Instructions Indication: Lymphadenopathy Acute sinusitis, unspecified : How to access health information online Indication: Acute sinusitis, unspecified Acute sinusitis, unspecified : How to access health information online - Detail Indication: Acute sinusitis, unspecified Acute sinusitis, unspecified : Patient Instructions Indication: Acute sinusitis, unspecified Impaired Fasting Glucose : How to access health information online Indication: Impaired Fasting Glucose Impaired Fasting Glucose : How to access health information online - Detail Indication: Impaired Fasting Glucose Impaired Fasting Glucose : Patient Instructions Indication: Impaired Fasting Glucose Constipation : Patient Instructions Indication: Constipation Mixed hyperlipidemia : Patient Instructions Indication: Mixed hyperlipidemia Mixed hyperlipidemia : Patient Instructions Indication: Mixed hyperlipidemia Mixed hyperlipidemia : Patient Instructions Indication: Mixed hyperlipidemia Mixed hyperlipidemia : Patient Instructions Indication: Mixed hyperlipidemia ACUTE PHARYNGITIS (462.) : How to access health information online - Detail Indication: ACUTE PHARYNGITIS (462.) ACUTE PHARYNGITIS (462.) : How to access health information online Indication: ACUTE PHARYNGITIS (462.) ACUTE PHARYNGITIS (462.) : Patient Instructions Indication: ACUTE PHARYNGITIS (462.) Vitamin D deficiency : Patient Instructions Indication: Vitamin D deficiency Elevated liver enzymes : Patient Instructions Indication: Elevated liver enzymes Constipation : Patient Instructions Indication: Constipation Hepatitis B vaccination not up to date : Patient Instructions Indication: Hepatitis B vaccination not up to date Hemorrhoids, unspecified hemorrhoid type : Patient Instructions Indication: Hemorrhoids, unspecified hemorrhoid type ACUTE PHARYNGITIS (462.) : Patient Instructions Indication: ACUTE PHARYNGITIS (462.) Gallstone : Patient Instructions Indication: Gallstone Abdominal pain, acute, right upper quadrant : Patient Instructions Indication: Abdominal pain, acute, right upper quadrant Renal cell carcinoma : Patient Instructions Indication: Renal cell carcinoma Abdominal pain, acute, generalized : Patient Instructions Indication: Abdominal pain, acute, generalized Hypertension, benign : Patient Instructions Indication: Hypertension, benign Encounters Office Visit On: 27-Jul-2018 9:06 Encounter Reason: Follow up Meds - The patient feels well with minor complaints (would like to talk about her BP med andj possibly lowering the dosage. BP has been running good). Current medication use: experiencing side End: 29-Jul-2018 18:18 effects (not sure if gabapentin or blood pressure med. Not sleeping well, odd dreams, forgetful.). Note for Follow up Meds: she working hard on weight loss diet and ex 5 days a week working out- so w [address] way down and so is bp she is currently taking 50 mg of losarten so will go to 25 and she will monitor bp and if still low can go off- also try back down gabapentin to 2 a day and not take night do se as no pain at ight usually and see if helps with dreaming- reviewed labs drawn by luis and ordered followup labsEncounter Diagnosis: Current nonsmoker, BMI 31.0-31.9,adult, Hypertension, benign, Low blood pressure reading, Abnormal blood chemistry, Drug side effects [facility] Office Visit On: 26-Jul-2018 11:52 Encounter Reason: Dizziness - Note for Dizziness: Pts symptoms started about 3 weeks ago but yesterday noticed symptoms have gotten worse-felt like she was going to faint-stopped activity, did deep breathing exercises End: 26-Jul-2018 14:36 and it passed. Dizziness with movement. Was at [employer] working out and thought would stop and get BP checked today. States the dizziness has gotten worse since starting gabepentin; started that abou t 3 months ago. Has also lost more weight and is wondering if needs to cut Losartan again due to losing weight. ??NO CP, SOB, Headache, hasn't passed out, fever, chills.Encounter Diagnosis: Low blood pressure reading, Dizziness, BMI 35.0-35.9,adult, Current nonsmoker [facility] Phone Encounter On: 08-May-2018 13:24 Encounter Diagnosis: Acquired polyneuropathy, Fatigue, Acute hyperglycemia End: 08-May-2018 14:10 [facility] Office Visit On: 07-May-2018 10:55 Encounter Reason: Follow up tests - Date: (04/30 blood work)., [ADDITIONAL REASON] Follow up for chronic medical issues - The patient feels well with minor complai End: 07-May-2018 11:42 nts (can still tell where that lump was on her leg but it doesn;t hurt. Has some questions about her BP med/ Will be seeing neurologist in [place] tomorrow), has decreased energy level (comes and goes) a nd is sleeping well (most of the time but sometimes not. has been having nightmares since starting the gabapentin). Patient has been compliant with instructions. Current medication use: experiencing herrera e effects (nightmares from gabapentin) and compliant with dosing regimen. Patient sleeps 6 hours per night. Nutrition: balanced diet. The medical issues the patient is following up for include All ident ified problems below. Note for Follow up for chronic medical issues: she losing weight and trying with diet and ex - her foot feeling better with gabapentin but is having some wierd dreams with it but on low dose and doesnt want to stop she is moving better- sometimes still feels lump- no abd pain - reviewed labs Encounter Diagnosis: Current nonsmoker, BMI 35.0-35.9,adult, Impaired Fasting Glucose (790.21), Fatty liver, Hypertension, benign, Mixed hyperlipidemia, Vitamin B12 deficiency, Vitamin D deficiency [facility] Office Visit On: 30-Apr-2018 13:07 Encounter Diagnosis: Candidiasis End: 30-Apr-2018 13:11 [facility] Office Visit On: 30-Apr-2018 10:44 Encounter Diagnosis: Need for prophylactic vaccination and inoculation against influenza (Renamed from Need for immunization against influenza) End: 30-Apr-2018 11:09 [facility] Phone Encounter On: 07-Mar-2018 16:08 Encounter Diagnosis: Soft tissue mass End: 07-Mar-2018 16:16 [facility] Office Visit On: 06-Mar-2018 13:24 Encounter Reason: Leg Pain - This condition occurred without any known injury. Symptoms include leg pain and calf tenderness (lump in calf), while symptoms do not include stiffness. The pain is located in the right poste End: 06-Mar-2018 22:23 rior lower leg (calf). Onset was 4 day(s) after the injury. Symptoms are exacerbated by direct pressure. Note for Leg pain: no trauma, [ADDITIONAL REASON] Foot Problem - Note for Foot problem: saw dereck for foot pain- and got stero id injection not help and having terrible bruning pain not much back or leg pain Encounter Diagnosis: Current nonsmoker, BMI 39.0-39.9,adult, Soft tissue mass, Mobley's neuroma, right [facility] Office Visit On: 31-Jan-2018 9:56 Encounter Reason: Follow up tests - Date: (01/23/18 blood work)., [ADDITIONAL REASON] Follow up for chronic medical issues - The patient feels well with minor complai End: 01-Feb-2018 21:17 nts (L foot swollen and painful for about 1 month without any known injury. L shoulder shoulder pain as well without any known injury for the past couple months. Thinks had a bout of diverticulitis abou t 1 week ago but feeling ok now), has decreased energy level and is sleeping poorly (just got back from [place], time zone). Patient has been compliant with instructions. Current medication use: no side effects and compliant with dosing regimen. Patient sleeps 6 hours per night. Nutrition: balanced diet. The medical issues the patient is following up for include All identified problems below. Note for Follow up for chronic medical issues: she was having left sided abd pain with constipation- ended up taking miralax and was bloated- seems to happen when travels bp is good- abd better now- was walkin g several miles with son and foot left side swollena nd painful- sometimes right side- left subscapular region sometimes she notices more than others notices more when sitting quietly doesnt notice with moveents of shoulder Encounter Diagnosis: Current nonsmoker, BMI 38.0-38.9,adult, Impaired Fasting Glucose (790.21), Gastro- esophageal reflux disease without esophagitis, Fatty liver, Mixed hyperlipidemia, Vitamin D deficiency, Vitamin B12 deficiency, Abdominal pain, left lower quadrant [facility] Office Visit On: 16-Oct-2017 10:10 Encounter Reason: Follow up tests - Date: (10/12/17 blood work). Note for Discuss procedure results: she was up to 255- and weight down to 240- she did the cleanse and has been going to [employer] with a personal train End: 16-Oct-2017 10:58 er once a week and trying to get there twice a week- bp is good she is feeling better- feet been doing better in generalEncounter Diagnosis: Current nonsmoker, BMI 38.0-38.9,adult, Impaired Fasting Glucose (790.21), Hypertension, benign, Mixed hyperlipidemia, Fatty liver, Multiple thyroid nodules, Gastro-esophageal reflux disease without esophagitis, Hair loss [facility] Office Visit On: 21-Jul-2017 10:32 Encounter Reason: Follow up Meds - The patient feels well with minor complaints, has decreased energy level and is sleeping poorly. Patient has been non- compliant with instructions. Current medication use: non-compliant End: 21-Jul-2017 11:44 with dosing regimen. Patient sleeps 6 hours per night. Note for Follow up Meds: Pt didnt actually start the Contrave yet. The cost was too high so they told her to ask for a coupon. Pt also has a wheezing.- yeast is resolved, [ADDITIONAL REASON] Cough - Symptoms include cough, wheezing, runny nose and stuffy nose, while symptoms do not include dyspnea, fever or sore throat. The cough is described as wheezy, moist and produc tive. Cough onset was sudden 10 day(s) ago. The cough occurs intermittently. Associated symptoms include postnasal drainage, while associated symptoms do not include hoarseness. The patient is not currently being treated for this problem. Encounter Diagnosis: BMI 39.0-39.9,adult, Current nonsmoker, Cough, Acute bronchitis, Mixed hyperlipidemia, Vitamin D deficiency, Hypertension, benign, Right acute serous otitis media, recurrence not specified, Fatty liver, Impaired Fasting Glucose (790.21) [facility] Office Visit On: 20-Jun-2017 8:57 Encounter Reason: Physical female exam - Last seen between 1-3 months ago. General health: feels well with no complaints, has good energy level (comes and goes) and is sleeping well (off and on). The patient's appetite i End: 12-Jul-2017 16:13 s normal. Nutrition: normal/adequate. Exercises 0 (she does exercise but inconstitantly) days per week. Sleeps on average 6 (broken hours) hours per night. Normal bowel and bladder habits. screening, co lonoscopy (10/2014), screening, mammography (06/09/2016), screening, Pap smear (does not get any longer, hysterectomy) and screening, visual acuity (biannual). Note for Physical exam: she is keeping up with renal cell followup-she is doing why weight - really trying to get back on tract- she is seeing Brittanybrittany Hicks- she wants to eat healthy but just has trouble staying on tract- she does feel like she stress eatsEncounter Diagnosis: Current nonsmoker, Need for prophylactic vaccination and inoculation against influenza (Renamed from Need for immunization against influenza), Right acute serous otitis media, recurrence not specified, Encounter for screening mammogram for breast cancer (Renamed from Encounter for screening mammogram for malignant neoplasm of breast), Hypertension, benign, BMI 39.0-39.9,adult, [facility] EXAM, Candidiasis, Vitamin D deficiency [facility] Office Visit On: 05-May-2017 10:58 Encounter Reason: Otitis Media - Symptoms include fullness of the ear(s), drainage from the ear(s), stuffy nose (could be allergies), difficulty hearing and sleep disturbance, while symptoms do not include fever. Symptom End: 05-May-2017 11:19 s are located in the right ear. The otorrhea is described as clear. Onset was 1 week(s) ago. The symptoms occur constantly. The patient describes this as worsening. Associated symptoms do not include he adache. Note for Otitis media: feels like cottonball in ear- has some pnd- no pain in ear - using nasal spray and taking sudafed and zyrtec-- clear drainage out ear- cant hear out of right ear and rin ging- just flu discussed using sudafed when flying 2 hours priorEncounter Diagnosis: BMI 39.0-39.9,adult, Current nonsmoker, Right acute serous otitis media, recurrence not specified, Right foot pain [facility] Office Visit On: 28-Apr-2017 12:59 Encounter Reason: Foot Problem - This condition occurred without any known injury. Symptoms include foot pain (sharp, burning pain). Symptoms are located in the right foot (ball of foot, right beneath toes. thinks may be End: 30-Apr-2017 21:38 starting in L foot as well). Onset was 1 month(s) ago. The symptoms occur frequently. The patient describes symptoms as worsening. Symptoms are exacerbated by weight bearing (hurts while driving car in the evening and afternoons). Note for Foot problem: no trauma- right foot in between second and third toe- and taking celebrex consistently for a month- but its only 100 mg and not seem to be working - hurt walk - ??right calf aching and behind the knee and new varicose vein- walking more- has traveled recentlyEncounter Diagnosis: Current nonsmoker, BMI 39.0- 39.9,adult, Right foot pain, Right leg swelling [facility] Office Visit On: 08-Mar-2017 11:07 Encounter Reason: Follow up for chronic medical issues - The patient feels well with no complaints, has good energy level and is sleeping well. Patient has been compliant with instructions. Current medication use: no herrera End: 19-Mar-2017 16:01 e effects and compliant with dosing regimen. Patient sleeps 6 hours per night. Nutrition: balanced diet. The medical issues the patient is following up for include All identified problems below. Note fo r Follow up for chronic medical issues: is working out with strainer cleaner once a week- and trying to get more exercise in routinely- ears are better- counseling helping chol better - no routine gerd- sugar better, [ADDITIONAL REASON] Follow up tests - Diagnostic tests include other (labs). Date: (03/08/17). Encounter Diagnosis: Current nonsmoker, BMI 38.0-38.9,adult, Impaired Fasting Glucose (790.21), Fatty liver, Mixed hyperlipidemia, Gastro-esophageal reflux disease without esophagitis, Vitamin D deficiency, Encounter for hepatitis C virus screening test for high risk patient, Screening for rubella, Renal cell carcinoma (189.0) [facility] Office Visit On: 18-Jan-2017 11:53 Encounter Reason: Follow up acute care visit - The patient does not feel well, has decreased energy level and worsening. Patient has been compliant with instructions. Current medication use: no side effects, compliant wi End: 18-Jan-2017 15:06 th dosing regimen and not considered effective by patient. Patient sleeps 5 hours per night. The medical issues the patient is following up for include All identified problems below and URI. Note for F ollow up acute care visit: Pt is using Mucinex as directed and nasal spray but not helping. Now right ear is plugged. Cough with sputum, but unsure of color. Sinus pain with headache. No fever of recor d but felt warm. the ear pain from previous infection got betterbut still had difficulty hearing now ear hurts this morning-- got up this am hardly talk at all -was exposed to sick kid- sx started mon and getting worse Encounter Diagnosis: BMI 37.0-37.9, adult, Current nonsmoker, Eustachian tube dysfunction (Renamed from Dysfunction of eustachian tube), Otitis media, serous, acute, without rupture, left, Upper respiratory infection [facility] Office Visit On: 03-Jan-2017 9:57 Encounter Reason: Follow up acute care visit - The patient feels the same. Patient has been compliant with instructions. Current medication use: no side effects, compliant with dosing regimen and not considered effective End: 03-Jan-2017 10:27 by patient. Patient sleeps 5 hours per night. The medical issues the patient is following up for include All identified problems below and other (bilateral earache with fullness and ringing.). Note for Follow up acute care visit: Pt finished the atb but doesnt feel 100 percent - still feels pressure inright ear-no fever =- hearing issue- trying to take sudafed but waking up in middle of night-- and using the nasal spray- and zyrtec at night- hearing some better and balnace betterEncounter Diagnosis: Current nonsmoker, BMI 37.0-37.9, adult, Otitis media, serous, acute, without rupture, left [facility] Office Visit On: 23-Dec-2016 13:16 Encounter Reason: Earache - The onset of the earache has been sudden and has been occurring in an intermittent pattern for 4 days. The course has been recurrent. The earache is described as a moderate pressure sensation End: 25-Dec-2016 22:17 and stabbing pain. It affects both ears. The pain affects the internal ear. There has been associated decreased hearing, headache, nasal congestion and nasal discharge/stuffy nose, while there has been no chills, fever, non-purulent discharge from ear, protrusion of ear, purulent discharge from ear, recent swimming, runny nose, sinus problems or sore throat. Note for Earache: Pt also has ringing in her ears. Started in the right ear and its pretty loud but she thinks its in the left ear too.Encounter Diagnosis: BMI 37.0-37.9, adult, Current nonsmoker, Acute otitis media, right, Tinnitus of right ear, Acute maxillary sinusitis, recurrence not specified [facility] Office Visit On: 09-Dec-2016 11:43 Encounter Reason: Injections - The medication the patient is here to receive is vitamin B12 IM.Encounter Diagnosis: Vitamin B12 deficiency End: 09-Dec-2016 12:46 [facility] Phone Encounter On: 07-Dec-2016 16:18 Encounter Diagnosis: Vitamin B12 deficiency End: 07-Dec-2016 16:20 [facility] Office Visit On: 06-Dec-2016 10:46 Encounter Reason: Follow up for chronic medical issues - The patient feels well with no complaints, has decreased energy level and is sleeping poorly (having nightmares again- she thinks from stress). Patient has been co End: 06-Dec-2016 12:09 mpliant with instructions. Current medication use: no side effects and compliant with dosing regimen. Patient sleeps 6 hours per night. Nutrition: inappropriate diet. The medical issues the patient is f ollowing up for include All identified problems below. Note for Follow up for chronic medical issues: going to start the cleasnse in couple days got off the bandwagon- she was walkign regularly at the [facility] until last week -bp is ok- foot feeling better in general- takingcelebrex routiely it does help but have to take with food watch gerd- not tkaing vitamin d rotuinely- shoulder pain has gotten better assure followup well, [ADDITIONAL REASON] Follow up tests - Diagnostic tests include other (labs). Date: (11/26/16). Encounter Diagnosis: Impaired Fasting Glucose (790.21), Current nonsmoker, BMI 39.0-39.9,adult, GERD (gastroesophageal reflux disease), Multiple thyroid nodules, Vitamin B12 deficiency, Fatty liver, Vitamin D deficiency, Mixed hyperlipidemia, Hypertension, benign, Acute foot pain, right [facility] Office Visit On: 07-Oct-2016 10:47 Encounter Reason: Shoulder Problem - Symptoms include shoulder pain, tenderness, shoulder stiffness and decreased range of motion. Symptoms are located in the left shoulder. The pain radiates to the left upper arm, left End: 09-Oct-2016 16:44 neck, left hand and left elbow. Onset was sudden 1 week(s) ago. The symptoms occur constantly. The patient describes symptoms as unchanged. Associated symptoms include localized warmth, weakness in the arm, pain in the arm and pain in the neck, while associated symptoms do not include localized redness, numbness in the arm, chest pain or fever. The patient is not currently being treated for this probl em. Note for Shoulder problem: no recall specific thing that flared it - same issue as last fallEncounter Diagnosis: Acute pain of left shoulder, BMI 37.0- 37.9, adult, Current nonsmoker [facility] Office Visit On: 23-Sep-2016 13:33 Encounter Reason: Cold Symptoms - Symptoms include nasal congestion, runny nose, scratchy throat, hoarseness, productive cough, facial pressure, facial pain and headache. Onset was sudden 1 week(s) ago. The symptoms occu End: 23-Sep-2016 14:09 r constantly. The patient describes this as worsening. Associated symptoms include plugged ear(s) and fatigue, while associated symptoms do not include ear pain, wheezing, shortness of breath, nausea, v omiting, diarrhea or fever. The patient is not currently being treated for this problem. Note for Cold symptoms: Pt just finished an atb last week and then felt better for a couple days and then last sat the sx started back again. Encounter Diagnosis: Current nonsmoker, BMI 37.0-37.9, adult, Wheezing, Bronchitis, acute [facility] Office Visit On: 29-Aug-2016 10:05 Encounter Reason: Follow up for chronic medical issues - The patient feels well with minor complaints (getting over being ill. Still a little stuffy and headache), has decreased energy level and is sleeping well (somewha End: 29-Aug-2016 10:50 t). Patient has been compliant with instructions. Current medication use: no side effects and compliant with dosing regimen. Patient sleeps 7 hours per night. Nutrition: balanced diet. Note for Follow up for chronic medical issues: weight up going to do a cleanse and hasnt been exercising like was- her bp is good- she is feeling ok otherwise - she is getting over bug from [place] and is getting better- foot betterEncounter Diagnosis: Impaired Fasting Glucose (790.21), BMI 37.0-37.9, adult, Current nonsmoker, Multiple thyroid nodules, Mixed hyperlipidemia, Renal cell carcinoma (189.0), Acute foot pain, right, GERD (gastroesophageal reflux disease), Vitamin D deficiency, Fatty liver, Vitamin B12 deficiency, Upper respiratory infection [facility] Phone Encounter On: 17-May-2016 11:46 Encounter Diagnosis: Prolonged QT interval End: 17-May-2016 11:48 [facility] Office Visit On: 16-May-2016 12:55 Encounter Reason: Physical female exam - General health: feels well with minor complaints (joint pain in left shoulder and right hip- hx of joint pain), has good energy level and is sleeping well. The patient's appetite End: 17-May-2016 9:41 is normal. Nutrition: normal/adequate. Exercises 5 (walks everyday) days per week. Sleeps on average 7 hours per night. Elimination problems include diarrhea (if eats dairy). Safety measures include sandra ropriate use of safety belts and home smoke detectors. There are no current emotional problems. Note for Physical exam: [facility]- weight up bit she knows craving more going back on gemini nse- left anterior shoulder pain newer - - comes and goes notices if has to move in certain direction- right hip /buttocks worse with sitting deep ache- sometimes down to knee- numb in toes- not weak-- - maybe not notice as much up walking, [ADDITIONAL REASON] Follow up tests - Diagnostic tests include other (labs). Date: (05/02/16). Encounter Diagnosis: [facility], Need for prophylactic vaccination and inoculation against influenza (Renamed from Need for immunizati on against influenza), BMI 36.0-36.9,adult, Nonsmoker, History of pneumonia, Encounter for screening mammogram for breast cancer (Renamed from Encounter for screening mammogram for malignant neoplasm of breast), Postmenopausal (Renamed from Postmenopausal status), Chronic left shoulder pain, Mixed hyperlipidemia, Fatty liver, Vitamin D deficiency, Impaired Fasting Glucose (790.21) [facility] Office Visit On: 16-Mar-2016 15:15 Encounter Reason: Foot Problem - Symptoms include foot pain, foot swelling, calluses and bunions, while symptoms do not include foot numbness, corns or itching feet. Symptoms are located in the right foot. Onset was grad End: 16-Mar-2016 16:17 ual 1 month(s) ago. The symptoms occur constantly. The patient describes symptoms as worsening (in last week). Associated symptoms include leg pain (briefly but has resolved now), while associated sympt oms do not include discolored toenails, ankle swelling or back pain. The patient is not currently being treated for this problem. Note for Foot problem: Pt said she has flat feet.- thinks caught foot on a root running- two middle toes tingling- and pain right lateral foot- not taking anythingEncounter Diagnosis: Acute foot pain, right, Mobley's neuroma, right, Fatty liver [facility] Office Visit On: 04-Jan-2016 9:50 Encounter Reason: Follow up for chronic medical issues - The patient feels well with minor complaints, has decreased energy level and is sleeping well. Patient has been compliant with instructions. Current medication use End: 04-Jan-2016 23:07 : no side effects and compliant with dosing regimen. Patient sleeps 6 hours per night. Nutrition: balanced diet. Note for Follow up for chronic medical issues: father at 91- pneumonia- jus t happened so not had much time to grieve- she seems to be doing ok and bp is good and weight down doing the cleanse and trying - had thryoid biospy and was negative- devorah did check her supraclavicular node andtold her he not feel it was issue, [ADDITIONAL REASON] Follow up tests - Date: (11/2015). Encounter Diagnosis: Hypertension, benign, BMI 33.0-33.9,adult, Nonsmoker, Multiple thyroid nodules, Mixed hyperlipidemia, Lymphadenopathy, supraclavicular [facility] Office Visit On: 23-Nov-2015 9:15 Encounter Reason: Follow up tests - Diagnostic tests include CT scan, other (labs) and ultrasound (thyroid). Date: (10/2015). Note for Discuss procedure results: Jet lagged from flying home yesterday, otherwise good.- fatigue better no new sx End: 23-Nov-2015 22:43 Encounter Diagnosis: Hemorrhoids, unspecified hemorrhoid type, Multiple thyroid nodules, Lymphadenopathy, supraclavicular, Hypertension, benign, Mixed hyperlipidemia, Fatty liver, Impaired Fasting Glucose (790.21), Vitamin D deficiency [facility] Office Visit On: 18-Sep-2015 10:25 Encounter Reason: Follow up Meds - The patient feels well with minor complaints (headaches are better but still present. Joints are feelnig achey now, maybe s/e from medication. Was keeping track of BP at [facility] but the c End: 20-Sep-2015 17:39 uff broke. When she was keeping track, the BP was still running high. ). Patient has been compliant with instructions. Current medication use: experiencing side effects (achey joints), compliant with do sing regimen and considered effective by patient. Note for Follow up Meds: her bp cuff broke so last few days not taking - her headache but still some tight in back of head- she said had thyroi us- di dnt see Anderson saw olvinbumounika about enlarged lymph node- he thought maybe fatty didnt scan- alot of stress at home thinks wh feeling bad- not having as much left lower rib pain- supposed to have ct of abd she is getting appt with urology t [place] tthis done se we talked they can look at that area too, [ADDITIONAL REASON] Follow up tests - Date: (09/08/15 blood work). Encounter Diagnosis: Hypertension, benign, Lymphadenopathy, supraclavicular, Thyromegaly, Chronic nonintractable headache, unspecified headache type, Abdominal pain, LUQ [facility] Office Visit On: 08-Sep-2015 9:47 Encounter Reason: Follow up acute care visit - The patient feels the same and has decreased energy level. Patient has been compliant with instructions. Current medication use: no side effects and compliant with dosing re End: 10-Sep-2015 16:43 gimen. Patient sleeps 7 hours per night. The medical issues the patient is following up for include All identified problems below and other (headache and swollen glands). Note for Follow up acute care visit: some fatigue- headache left posterior neck and swollen now and not better with augmentin - always little pain- blance little off - some ringing in ears - maybe some loss of hearing but not acutley over time- no feverEncounter Diagnosis: Lymphadenopathy, Chronic nonintractable headache, unspecified headache type, Hypertension, benign [facility] Office Visit On: 31-Aug-2015 9:52 Encounter Reason: Headache - Onset was 3 week(s) ago.Encounter Diagnosis: Acute sinusitis, unspecified, Allergic otitis media of right ear, unspecified chronicity End: 31-Aug-2015 10:44 [facility] Office Visit On: 27-May-2015 9:16 Encounter Reason: Lumps - The onset of the lumps has been sudden and has been occurring in a persistent pattern for 1 week. The course has been constant. The lumps are described as moderate., End: 27-May-2015 10:40 [ADDITIONAL REASON] Follow up tests - Diagnostic tests include chest X-ray. Date: (05/18/15). Note for Discuss procedure results: Following up for supraclavicular mass versu lipoa vs lymph node. Mammogram done and Chest xray Encounter Diagnosis: Lymphadenopathy, supraclavicular, Multiple thyroid nodules [facility] Office Visit On: 18-May-2015 12:08 Encounter Reason: Lumps - The onset of the lumps has been sudden and has been occurring in a persistent pattern for 3 days. The course has been constant. The lumps are described as moderate.Encounter Diagnosis: Lymphadenopathy, supraclavicular End: 18-May-2015 12:29 [facility] Office Visit On: 15-May-2015 10:26 Encounter Reason: Follow up for chronic medical issues - The patient feels well with no complaints, has good energy level and is sleeping well (sometimes not). Patient has been compliant with instructions. Current medica End: 15-May-2015 11:01 tion use: no side effects and compliant with dosing regimen. Patient sleeps 7 hours per night. Nutrition: inappropriate diet. The medical issues the patient is following up for include All identified pr oblems below, blood sugar issues, gastric reflux, high blood pressure, high cholesterol and other (vit d deficient, thyromegaly, allergic rhinitis, obesity). Note for Follow up for chronic medical issu es: still losing weight and feeling alot better- and bp is good - doing cleanse again- no gerd unless eats something really spicey-abdominal pain gone, [ADDITIONAL REASON] Follow up tests - Diagnostic tests include other (labs ). Date: (05/13/15). Encounter Diagnosis: Impaired Fasting Glucose (790.21), Need for prophylactic vaccination and inoculation against influenza (Renamed from Need for immunization against influenza), Hypertension,benign(401.1), Hyperlipidemia, Mixed (272.2), Vitamin D deficiency, Fatty Liver (571.8), Renal cell carcinoma (189.0), Gerd (530.81), Encounter for screening mammogram for breast cancer (Renamed from Encounter for screening mammogram for malignant neoplasm of breast) [facility] Office Visit On: 21-Apr-2015 11:28 Encounter Reason: Abdominal pain - The onset of the pain has been sudden and has been occurring in a persistent pattern for 1 day. The course has been constant. The pain is described as a moderate pressure sensation. The End: 21-Apr-2015 11:56 pain is described as being located in the lower abdomen. The pain radiates to the left flank and right flank. The symptoms have no aggravating factors. The symptoms have no relieving factors. The sympt oms have been associated with abdominal distention, constipation and diarrhea.Encounter Diagnosis: Abdominal pain, Constipation, Renal cell carcinoma (189.0) [facility] Phone Encounter On: 04-Mar-2015 12:55 [facility] End: 04-Mar-2015 12:57 Office Visit On: 06-Feb-2015 10:42 Encounter Reason: Follow up for chronic medical issues - The patient feels well with no complaints, has good energy level and is sleeping well (sometimes not). Patient has been compliant with instructions. Current medica End: 06-Feb-2015 11:50 tion use: no side effects and compliant with dosing regimen. Patient sleeps 7 hours per night. Nutrition: inappropriate diet. The medical issues the patient is following up for include All identified pr oblems below, blood sugar issues, gastric reflux, high blood pressure, high cholesterol and other (vit d deficient, thyromegaly, allergic rhinitis, obesity). Note for Follow up for chronic medical issu es: she is feeling alot better still working on diet has to start wrking on exercise she has plans for that and bp good - mood good and sleeps well when watches what eat s, [ADDITIONAL REASON] Follow up tests - Diagnostic tests include other (labs ). Date: (02/05/15). Encounter Diagnosis: Hyperlipidemia, Mixed (272.2), Impaired Fasting Glucose (790.21), Fatty Liver (571.8), Vitamin D deficiency, Hypertension,benign(401.1), Renal cell carcinoma (189.0) [facility] Office Visit On: 19-Jan-2015 10:26 Encounter Reason: Follow up acute care visit - The patient feeling better since last seen. Patient has been compliant with instructions. Current medication use: no side effects.Encounter Diagnosis: Abnormal Lung Sounds/Rales (786.7), End: 19-Jan-2015 11:18 Wheezing (Renamed from Asthmatic breathing), BACTERIAL PNEUMONIA, UNSPECIFIED (482.9) [facility] Office Visit On: 15-Jan-2015 11:53 Encounter Reason: Cough - The last clinic visit was 2 week(s) ago. No changes in management were made at the last visit. Symptoms include cough, wheezing, fever and stuffy nose. The cough is described as hacking and whee End: 15-Jan-2015 13:18 zy. There is no known event that preceded symptom onset. The cough occurs constantly. Symptoms are described as moderate in severity.Encounter Diagnosis: Abnormal Lung Sounds/Rales (786.7), BACTERIAL PNEUMONIA, UNSPECIFIED (482.9), Cough (786.2), Wheezing (Renamed from Asthmatic breathing) [facility] Office Visit On: 04-Nov-2014 10:37 Encounter Reason: Follow up tests - Diagnostic tests include CT scan (abd) and other (labs ). Date: (10/29/14). Follow up visit with no current symptoms. Note for Discuss procedure results: Also a f/u ??on Standard Proc End: 04-Nov-2014 11:14 ess 21 day cleanse.- henry is still doing the shakes- and feeling well on this - eating veggies fish and chicken- she is doing really well and feeling alot better - saw Darrick yesterday- and had mri of kidney and scar tissue but doing well- and - Encounter Diagnosis: Hyperlipidemia, Mixed (272.2), Vitamin D deficiency, Fatty Liver (571.8), Impaired Fasting Glucose (790.21), Dysphagia (787.20), Hypertension,benign(401.1) [facility] Office Visit On: 23-Sep-2014 10:38 Encounter Reason: Follow up tests - Diagnostic tests include other (labs ). Date: (09/22/14). Note for Discuss procedure results: This is also a followup on standard process. Pt started the 21 day cleanse and is doing we End: 23-Sep-2014 15:57 ll with it. feels alot better not taking welchol or bp medsEncounter Diagnosis: Hyperlipidemia, Mixed (272.2), Fatty Liver (571.8), Impaired Fasting Glucose (790.21), Vitamin D deficiency [facility] Lab Order On: 19-Sep-2014 15:32 Encounter Diagnosis: Elevated liver enzymes, Hyperlipidemia, Mixed (272.2) End: 19-Sep-2014 15:33 [facility] Office Visit On: 02-Sep-2014 10:16 Encounter Reason: Follow up for chronic medical issues - The patient feels well with minor complaints (wants to talk about trying to lose weight), has good energy level and is sleeping well (sometimes not). Patient has b End: 02-Sep-2014 22:45 een compliant with instructions. Current medication use: experiencing side effects (constipation from welchol but taking fiber so helps keep regular) and compliant with dosing regimen. Patient sleeps 8 hours per night. Nutrition: inappropriate diet. The medical issues the patient is following up for include All identified problems below, blood sugar issues, gastric reflux, high blood pressure, high ch olesterol and other (vit d deficient, thyromegaly, allergic rhinitis, obesity)., [ADDITIONAL REASON] Follow up tests - Diagnostic tests include other (labs ). Date: (07/30/14). Encounter Diagnosis: Hyperlipidemia, Mixed (272.2), Hip pain, left (719.45), Fatty Liver (571.8), Impaired Fasting Glucose (790.21) [facility] Office Visit On: 02-Jul-2014 10:47 Encounter Reason: Follow up tests - Diagnostic tests include other (labs ). Date: (07/01/14).Encounter Diagnosis: Vitamin D deficiency, Hyperlipidemia, Mixed (272.2), Hiatal hernia (553.3), Pain of left side of body End: 02-Jul-2014 11:23 [facility] Lab Order On: 01-Jul-2014 12:26 Encounter Diagnosis: Vitamin D deficiency, SCREENING FOR HYPERLIPIDEMIA (Renamed from Encounter for screening for lipoid disorders) End: 01-Jul-2014 12:29 [facility] Annotation/Addendum On: 30-Jun-2014 9:46 Encounter Diagnosis: Unspecified Diagnosis End: 30-Jun-2014 9:53 [facility] Office Visit On: 20-Jun-2014 11:34 Encounter Reason: Stress - Symptoms include worries. The patient worries about personal health issues, family issues and job issues. Onset was sudden. Onset followed family stressors, job stressors and disease exposure. End: 20-Jun-2014 12:14 The symptoms occur constantly. The patient describes this as severe and worsening. Associated symptoms include sleep disturbance and poor concentration. The patient is not currently being treated for this problem.Encounter Diagnosis: Need for prophylactic vaccination and inoculation against influenza (V04.81), Stress [facility] Office Visit On: 19-Jun-2014 9:31 Encounter Reason: Dysphagia - The last clinic visit was 2 week(s) ago. No changes in management were made at the last visit. Symptoms include dysphagia with solids, dysphagia with liquids, choking (feels like a lump), co End: 20-Jun-2014 14:44 ugh and throat pain, while symptoms do not include chest pain or heartburn. Difficult or painful swallowing is noted in the upper esophagus. The pain radiates to the neck. There is no known event that p receded symptom onset. The patient describes this as worsening. Symptoms are relieved by antacids (some help).Encounter Diagnosis: ACUTE PHARYNGITIS (462.), Dysphagia (787.20), THYROMEGALY (240.9), Gerd (530.81), Elevated liver enzymes, Vitamin D deficiency [facility] Office Visit On: 18-Jun-2014 9:02 Encounter Reason: Follow up tests - Diagnostic tests include other (labs). Date: (06/16/14).Encounter Diagnosis: Vitamin D deficiency, Elevated liver enzymes, Hyperlipidemia, Mixed (272.2) End: 18-Jun-2014 13:52 [facility] Office Visit On: 02-May-2014 10:02 Encounter Reason: Follow up acute care visit - The patient feeling better since last seen and improving. Patient has been compliant with instructions. Current medication use: no side effects, compliant with dosing regime End: 02-May-2014 10:45 n and not considered effective by patient. The medical issues the patient is following up for include All identified problems below, UTI and other (abd pain ).Encounter Diagnosis: Elevated liver enzymes, Joint pain [facility] Office Visit On: 18-Apr-2014 11:55 Encounter Reason: Follow up acute care visit - The patient does not feel well and has decreased energy level. The medical issues the patient is following up for include All identified problems below and other (abd pain).Encounter Diagnosis: End: 18-Apr-2014 12:33 Abdominal pain, lower, Abdominal pain, LUQ, Constipation [facility] Office Visit On: 31-Mar-2014 13:49 Encounter Reason: eye spasm - ADduration- 10 daysreleiving - dark enviormentexcerbation- natural light, cool airEncounter Diagnosis: Eye twitch, Blurred vision End: 31-Mar-2014 14:19 [facility] Office Visit On: 06-Dec-2013 9:28 Encounter Reason: Follow up tests - Diagnostic tests include other (labs). Date: (12/03/13).Encounter Diagnosis: Hepatitis B vaccination not up to date, Conjunctivitis, allergic End: 06-Dec-2013 10:16 [facility] Office Visit On: 03-Dec-2013 9:54 Encounter Reason: Follow up tests - Diagnostic tests include CT scan. Date: (12/02/13).Encounter Diagnosis: Renal cyst, Fatty Liver (571.8), SCREENING FOR HYPERLIPIDEMIA (Renamed from Encounter for screening for lipoid disorders) End: 03-Dec-2013 16:23 [facility] Lab Order On: 26-Nov-2013 16:31 Encounter Diagnosis: Renal cell carcinoma (189.0) End: 26-Nov-2013 16:34 [facility] Annotation/Addendum On: 26-Nov-2013 16:18 Encounter Diagnosis: Abnormal renal ultrasound End: 26-Nov-2013 16:22 [facility] Office Visit On: 22-Nov-2013 12:00 Encounter Reason: Abdominal Pain, Female - Symptoms include abdominal pain and nausea. The pain is located in the right upper quadrant. There is no radiation. The patient describes the pain as burning. Onset was sudden 1 End: 22-Nov-2013 12:57 month(s) ago. There is no known event that preceded symptom onset. The symptoms occur constantly. The patient describes this as moderate in severity.Encounter Diagnosis: Abdominal Pain,RUQ(789.01), H/O partial nephrectomy (V15.29), UTI (lower urinary tract infection) [facility] Office Visit On: 23-Jul-2013 15:19 Encounter Reason: Hemorrhoids - Symptoms include anal pain, anal lump, rectal bleeding and pain with defecation, while symptoms do not include anal itching, anal leakage, constipation or diarrhea. The patient describes t End: 23-Jul-2013 22:59 he pain as sharp, dull, aching, burning, stinging and throbbing. Onset was gradual 3 week(s) ago. The symptoms occur constantly. The patient describes this as worsening. Current treatment includes hemor rhoid creams and stool softeners. Note for Hemorrhoids: Pt had a colonoscopy done recently with Joe and she asked him for guidence on what to do for the hemorrhoids and he didnt really give her an answer. - she has internal and external hemmies- he was going to band them but didnt have a kit there so didnt do them- taking miralax daily hurts to go - using anusol tucks fiber fluids - not better- and no abd painEncounter Diagnosis: Hemorrhoids (455.6) [facility] Office Visit On: 16-Jul-2013 11:51 Encounter Reason: Cough - The onset of the cough has been sudden. The cough is characterized as productive of mucoid sputum. The amount of sputum produced is scanty. The cough occurs all the time. The symptoms have been End: 16-Jul-2013 12:11 associated with hoarseness, runny nose and wheezing, while the symptoms have not been associated with fever.Encounter Diagnosis: Bronchitis (490), Cough (786.2) [facility] Office Visit On: 04-Jul-2013 10:12 Encounter Diagnosis: Hemorrhoids (455.6) End: 04-Jul-2013 11:03 [facility] Office Visit On: 03-Jul-2013 11:49 Encounter Reason: Injections - The medication the patient is here to receive is other.Encounter Diagnosis: Need for prophylactic vaccination and inoculation against influenza (V04.81) End: 03-Jul-2013 12:05 [facility] Office Visit On: 31-May-2013 10:56 Encounter Reason: Joint Pain - Symptoms include joint pain. Symptoms are located in the left hip and left knee. The patient describes the pain as sharp. Onset was sudden hour(s) ago. There is no known event that preceded End: 31-May-2013 12:08 symptom onset. The symptoms occur constantly. The patient describes this as moderate in severity and worsening. The pain radiates to the hand. Associated symptoms include paresthesias (intermittent jame atteral fingers), while associated symptoms do not include fatigue, myalgia, dry mouth or dry eyes.Encounter Diagnosis: Hip pain, left (719.45), Left knee pain (719.46), H/O partial nephrectomy (V15.29), Left shoulder pain (719.41) [facility] Office Visit On: 06-Mar-2013 8:20 Encounter Reason: Sore Throat - Symptoms include sore throat, dysphagia, nasal congestion, postnasal drainage and swollen glands, while symptoms do not include fever or chills. The symptoms are on the left side more than End: 06-Mar-2013 9:06 the right. Onset was 1 month(s) ago. The symptoms occur constantly. The patient describes this as worsening. Associated symptoms include ear pain (R ear) and cough, while associated symptoms do not inc lude headache, nausea or vomiting. Current treatment includes antihistamines.Encounter Diagnosis: ACUTE PHARYNGITIS (462.), ACUTE SINUSITIS, UNSPECIFIED (461.9), ALLERGIC RHINITIS DUE TO OTHER ALLERGEN (477.8) [facility] Office Visit On: 15-Oct-2012 10:23 Encounter Reason: Follow up tests - Diagnostic tests include other (labs) and ultrasound (gallbladder). Date: (10/10/12). Current symptoms include abdominal pain (RUQ and metallic taste in mouth). Note for Discuss proced End: 15-Oct-2012 22:23 ure results: is havign some left upper after eating too- takign prilosec and tums- ??the symptoms are intermittent at night and mostly after eating- - no symptoms with exertion- still cough- white milk y is sputum- did miss allergy shot last week- no wheeze no not sob- sx are intermittent throught the day-- no temp Encounter Diagnosis: Gallstone (574.20), Fatty Liver (571.8), Cough (786.2) [facility] Annotation/Addendum On: 10-Oct-2012 13:12 Encounter Diagnosis: Hypertension,benign(401.1) End: 10-Oct-2012 13:16 [facility] Office Visit On: 09-Oct-2012 10:31 Encounter Reason: Abdominal pain - The onset of the pain has been gradual and has been occurring in an intermittent pattern for 4 weeks. The course has been increasing. The pain is described as a moderate (to severe) bur End: 09-Oct-2012 23:05 rut (like a hot poker and has dry itching area below it. ). The pain is described as being located in the right upper quadrant, periumbilical area and right lower quadrant. The pain radiates to the kenroy k. The symptoms have no aggravating factors. The symptoms are relieved by antacids (has been taking prilosec and tums and seems to be helping somewhat but not completely). There has been no associated b loating, bloody stools, chest pain, constipation, diarrhea, dysuria, fever, nausea or vomiting. Note for Pain: Pt states this is different than before. had further opinions onkidney issue [facility] said wa snt cancer but thought oncocytoma and another opinion- with oncologist- which didnt feel she got [facility]- has had abd pain for 4 weeks but intense last 5 days- pain is above right kidney - fee ls like hot poker- taking prilosec maybe little better - also quit tea coffee and c itrus- same place as pain in past but more intense- no vomit or diarrhea or fever- normally not there all the time- bu t now there all the time- no blood in stool appetitie ok, [ADDITIONAL REASON] Cough - The onset of the cough has been gradual. The cough is characterized as productive of mucoid sputum. The amount of sputum produced is scanty. The cough occurs all the time. The symptoms are aggravated by supine posture. The symptoms have been associated with wheezing (at hs ), while the symptoms have not been associated with dyspnea, fever, headache or runny nose. the color of the sputum is clear and yellowish. Note for Cough : cough since mid jul then got flu- hasnt ron en any antiobitics- coughing up thin yellow mucous- no fever- no sob- has been raspy on and off Encounter Diagnosis: Cough (786.2), Abdominal Pain,RUQ(789.01), ACUTE SINUSITIS, UNSPECIFIED (461.9) [facility] Office Visit On: 21-Sep-2012 9:43 Encounter Reason: Flu Like Symptoms - Symptoms include fever, chills, body aches, runny nose, productive cough, facial pain and headache. Onset was sudden day(s) ago. Onset followed exposure at home to someone with upper End: 21-Sep-2012 10:17 respiratory symptoms. The symptoms occur constantly. The patient describes this as moderate in severity and worsening. Associated symptoms include plugged ear(s), wheezing, shortness of breath, fatigue, fever and chills.Encounter Diagnosis: Fever and chills (780.60), Influenza A (487.1), Cough (786.2) [facility] Visit On: 20-Jul-2012 9:58 Encounter Reason: Follow up tests - Diagnostic tests include other (labs). Date: (05/29/12). Note for Discuss procedure results: Pt had a partial Nephrectomy of left kidney but the margins were abnormal also so now pt n End: 20-Jul-2012 10:37 eeds advise on what to do from here. Has seen Oncologist in [place], Dr. Jan Healy which he has referred her to [facility] which she is waiting to get in. margins were not clear and was renal cell carcino theresa- darrick wanted to do watchful waiting- but went for second opinion in [place]-- got referred to Dr Iglesia Gibbons- she is waiting for appt- he is surgeonEncounter Diagnosis: Hypertension,benign(401.1), Hyperlipidemia, Mixed (272.2), Impaired Fasting Glucose (790.21), Renal cell carcinoma (189.0) [facility] Office Visit On: 11-Jul-2012 8:14 Encounter Reason: Sore Throat - Symptoms include sore throat and swollen glands, while symptoms do not include myalgias, fever or chills. The symptoms are left sided. The pain radiates to the left neck. The patient descr End: 11-Jul-2012 8:54 ibes the pain as dull and aching. Onset was sudden day(s) ago. The symptoms occur constantly. The patient describes this as moderate in severity and worsening. Associated symptoms include headache, hoar seness, facial pain and fatigue, while associated symptoms do not include nausea.Encounter Diagnosis: ACUTE PHARYNGITIS (462.), Allergic Rhinitis(477.9), ACUTE SINUSITIS, UNSPECIFIED (461.9) [facility] Office Visit On: 29-May-2012 7:58 Encounter Reason: Follow up tests - Diagnostic tests include chest X-ray and CT scan (abd/pelvis). Date: (05/26/12). Note for Follow up tests: not having the chest pain like was since bp better and not having routine ab End: 29-May-2012 8:36 d pain when does mostly right upper now- but not sure if food related or not she will diary and bring next timeEncounter Diagnosis: Abdominal Pain,General (789.07), kidney mass- possible renal cell carcinoma, Chest pain (786.59), Hypertension,benign(401.1), Hiatal hernia (553.3), Diverticulosis (562.10) [facility] Office Visit On: 18-May-2012 11:57 Encounter Reason: new patient female physical - Last seen between 3-6 months ago. General health: feels well with minor complaints (lumps on ruq), has good energy level and is sleeping well. The patient's appetite is nor End: 20-May-2012 21:16 mal. Nutrition: inappropriate diet. Exercises 4 days per week. Sleeps on average 7 hours per night. Safety measures include appropriate use of safety belts and home smoke detectors. screening, mammograp hy (12/2011), screening, Pap smear (12/2011) and screening, visual acuity (2009). Note for new patient female physical: [facility] Dr marquez couple months ago- he said p ressure was high then and dint change the med- this week she is going to the gym and going to go back to weight watchers- she has struggled for a while, [ADDITIONAL REASON] Lumps - under skin on RUQ- no pain or fever. Noticed them about 6 months ago. Deep. No known injury or cause. Encounter Diagnosis: PREVENTION OF TETANUS (V03.7), Need for prophylactic vaccination and inoculation against influenza (V04.81), Hypertension,benign(401.1), Hyperlipidemia, Mixed (272.2), Obesity,unspecified (278.00), Chest pain (786.59), Gerd (530.81), Abdominal Pain,General (789.07) [facility]; a guarantor
--- OUTSIDE RECORDS SUMMARY | 2018-11-11 07:39 | XMS RPT_ITS | Continuity of Care Document ---
:1965 Author Organization [facility] Address [address] [place] [address] Phone Care Team Providers Name Role Phone Marcelle Daley DO Unavailable Dr. Blayne Welsh Unavailable Devorah ALFARO MD , Richar Cruz Unavailable Dr. Alannah Marina Unavailable Brittany Hicks Unavailable Fuentes Del Toro MD Unavailable Dr. Harjinder Cifuentes Unavailable Dr. Mike Borrego MD Unavailable Anderson DÍAZ, Kavitha Rush Unavailable Rafal Yun MD Unavailable rBian Cain Unavailable Sara eHnry Unavailable Unavailable Catalina Putnam Unavailable Unavailable Melania Salcedo Unavailable Unavailable Marta [...] too but is better Status: Active Abnormal lung sounds (R09.89, 786.7) [...] (H53.8, 368.8) Comments: rt Status: Active BMI 35.0-35.9,adult (Z68.35, V85.35) Status: Active BMI 35.0-35.9,adult (Z68.35, V85.35) Status: [...] Status: Active Dizziness (R42, 780.4) Status: Active Elevated liver enzymes (R74.8, 790.5) Comments: known fatty liver Status: Active Encounter for hepatitis C virus screening test for high risk patient (Z11.59, V73.89) Status: Active Encounter for screening mammogram for breast cancer (Renamed from Encounter for screening mammogram for malignant neoplasm of breast) (Z12.31, V76.12) Status: Active Encounter for screening mammogram for breast cancer (Renamed from Encounter for screening mammogram for malignant neoplasm of breast) (Z12.31, V76.12) Comments: after may 26 Status: Active Eustachian tube dysfunction (Renamed from Dysfunction of eustachian tube) (H69.80, 381.81) Status: Active Eye twitch (G24.5, 333.81) Comments: rt Status: Active Fatigue (R53.83, 780.79) Status: Active Fatty liver (K76.0, 571.8) Status: Active Gallstone (574.20) Status: Active Gastro-esophageal reflux disease without esophagitis (K21.9, 530.81) Comments: chronic stable-continue present regimen Status: Active H/O partial nephrectomy (V15.29) Comments: left 2011 per [facility], non cancer per [facility] per [place] Status: Active Hair loss (L65.9, 704.00) Status: Active Hepatitis B vaccination not up to date (Z78.9, V49.89) Comments: discussed with occupation and fatty liver, needs Hep B immunizedNo immunity to Hep B, was in process of getting series but was interuppted Status: Active Hiatal hernia (K44.9, 553.3) Comments: avoid caffeine Status: Active Hip pain, left (M25.552, 719.45) Status: Active Hypertension, benign (I10, 401.1) Comments: she will try half losarten as she getting occ orthostatic sx- getting plenty of water Status: Active Impaired Fasting Glucose (R73.01, 790.21) Status: Active Low blood pressure reading (R03.1, 796.3) Status: Active Lymphadenopathy (R59.1, 785.6) Status: Active [...] Left nephrectomy for renal cell ca per Syd but path reviewed by [facility] said it [...] days Quantity: 90 {Capsule} Refills: 2 Ordered:20-Jul-2018 Andrew MATHISTlmark HUGHESrikki MATHIS Marcelle A Start : 20-Jul-2018 Active Losartan Potassium 100 MG Oral Tablet 1 (one) Tablet qd for 90 days Quantity: 90 {Tablet} Refills: 3 Ordered:16-Jun-2017 Andrew MATHISTlmark HUGHESrikki MAHTIS Marcelle A Start : 16-Jun-2017 Active Losartan Potassium 100 MG Oral Tablet 1 (one) Tablet qd for 0 days Quantity: 10 {Tablet} Refills: 0 Ordered:16-Jun-2017 Andrew MATHISTlmark HUGHESrikki MATHIS Marcelle A Start : 16-Jun-2017 Active Nasacort Allergy 24HR 55 MCG/ACT Nasal Aerosol 1 spray each nostril daily (55 MCG/ACT) Active Nystatin 108938 UNIT/GM External Powder 1 (one) Powder qd for 0 days Quantity: 1 {Bottle} Refills: 1 Ordered:30-Apr-2018 Andrew MATHISMarcelle SAULrikki MATHIS Marcelle A Start : 30-Apr-2018 Active ProAir HFA 108 (90 Base) MCG/ACT Inhalation Aerosol Solution 2 (two) Aerosol Soln puffs q 6 hours prn for 0 days Quantity: 1 {Inhaler} Refills: 1 Ordered:21-Jul-2017 Marcelle SAULTl brandt DOa A Start : 21-Jul-2017 Active Rosuvastatin Calcium 10 MG Oral Tablet 1/2 Tablet qeve for 0 days Quantity: 90 {Tablet} Refills: 3 Ordered:07-May-2018 Marcelle SAULrikki MATHIS Marcelle A Start : 07-May-2018 Active Rosuvastatin Calcium 10 MG Oral Tablet 1/2 Tablet qeve for 0 days Quantity: 30 {Tablet} Refills: 3 Ordered:07-May-2018 Tlmark HUGHESrikki MATHIS Marcelle A Start : 07-May-2018 Active Vitamin D3 2000 UNIT Oral Tablet 2 (two) Tablet Tablet qd for 0 days Quantity: 60 {Tablet} Refills: 3 Ordered:23-Dec-2016 Melania Salcedo Start : 06-Dec-2016 Active Augmentin 875-125 MG Oral Tablet 1 Tablet bid for 14 days Quantity: 28 {Tablet} Refills: 0 Ordered:05-May-2017 Marcelle MATHIS DO, Debra A Start : 05-May-2017 End : 19-May-2017 Inactive BIAXIN XL PAC, 500MG (Oral Tablet Extended Release 24 Hour) 2 (two) Tablet ER 24HR daily for 10 days Quantity: 20 {Tablet_ER_24HR} Refills: 0 Ordered:16-Jul-2013 Denisse Melania Start : 16-Jul-2013 End : 26-Jul-2013 Inactive CEFDINIR, 300MG (Oral Capsule) 1 (one) Capsule bid for 7 days Quantity: 14 {Capsule} Refills: 0 Ordered:18-May-2015 Felix BACHVivian Start : 18-May-2015 End : 25-May-2015 Inactive Cheratussin AC 100-10 MG/5ML Oral Syrup 10 Milliliter q 6-8 hrs prn for 0 days Quantity: 150 {Milliliter} Refills: 0 Ordered:16-Oct-2017 Sara Henry Start : 21-Jul-2017 End : 16-Oct-2017 Inactive Comments:one hundred fifty CIPRO, 500MG (Oral Tablet) 1 (one) Tablet bid for 7 days Quantity: 14 {Tablet} Refills: 0 Ordered:21-Apr-2015 Izzykimark BACHVivian Start : 21-Apr-2015 End : 28-Apr-2015 Inactive CLARITIN, 10MG (Oral Tablet) 1 Tablet daily for 30 days Refills: 0 Ordered:20-Jul-2012 Marcelle Daley DO Keysha MATHIS, Marcelle A Start : 20-Jul-2012 End : 19-Aug-2012 Inactive Contrave 8-90 MG Oral Tablet Extended Release 12 Hour 4 Tablet qd for 0 days Quantity: 120 {Tablet} Refills: 1 Ordered:16-Oct-2017 Sara Henry Start : 20-Jun-2017 End : 16-Oct-2017 Inactive Doxycycline Hyclate 100 MG Oral Capsule 1 (one) Capsule bid for 0 days Quantity: 20 {Capsule} Refills: 0 Ordered:16-Oct-2017 Andrew MATHIS, Marcelle SAULrikki DO, Marcelle A Start : 21-Jul-2017 End : [...] days Quantity: 4 {Tablet} Refills: 0 Ordered:15-Jan-2015 Jing Harrison DO Start : 15-Jan-2015 End : 17-Jan-2015 Inactive [...] Quantity: 30 {Tablet} Refills: 0 Ordered:18-Jan-2017 Marcelle MATHIS DO, Debra A Start : 07-Dec-2016 End : 06-Jan-2017 Inactive VITAMIN B12, 100MCG (Oral Tablet) 1 daily (100 MCG) Inactive Atorvastatin Calcium 10 MG Oral Tablet 1 (one) Tablet qd in renzo for 90 days Quantity: 90 {Tablet} Refills: 3 Ordered:16-Oct-2017 Marcelle Daley DO, DO, Debra A Start : 16-Oct-2017 End : 16-Oct-2017 Discontinued AZELASTINE HCL, 0.05% (Ophthalmic Solution) 1 (one) Solution Solution bid for 0 days Quantity: 1 {Bottle} Refills: 0 Ordered:21-Apr-2015 Laura Benito LPN Start : 06-Dec-2013 End : 21-Apr-2015 Discontinued Ergocalciferol 33274 UNIT Oral Capsule 1 (one) Capsule Capsule q week for 0 days Quantity: 12 {Capsule} Refills: 3 Ordered:08-Mar-2017 Melania Salcedo Start : 04-Nov-2014 End : 08-Mar-2017 Discontinued Ergocalciferol 53570 UNIT Oral Capsule 1 (one) Capsule Capsule [...] days Quantity: 30 {Tablet} Refills: 0 Ordered:21-Apr-2015 Laura Benito LPN Start : 09-Jan-2014 End : 21-Apr-2015 Discontinued LOSARTAN POTASSIUM-HCTZ, 100-25MG (Oral Tablet) 1 tab Tablet qd for 90 days Quantity: 90 {Tablet} Refills: 1 Ordered:21-Apr-2015 Laura Benito LPN Start : 09-Jan-2014 End : 21-Apr-2015 Discontinued [...] days Quantity: 180 {Capsule_ER} Refills: 3 Ordered:21-Apr-2015 Slarb K[employer] MACHINE OPERATOR, Laura Start : 07-Sep-2012 End : 21-Apr-2015 Discontinued PROVENTIL HFA, 108 (90 Base)MCG/ACT (Inhalation Aerosol Solution) 2 (two) Aerosol Soln q 6 hr prn for 0 days Quantity: 1 {Inhaler} Refills: 0 Ordered:21-Apr-2015 Slarb [employer]ACHINE OPERATOR, Laura Start : 19-Jan-2015 End : 21-Apr-2015 Discontinued WELCHOL, 625MG (Oral Tablet) 3 (three) Tablet bid for 90 days Quantity: 540 {Tablet} Refills: 3 Ordered:23-Sep-2014 Fast DO, Marcelle AFast DO, Marcelle A Start : 23-Sep-2014 End : 23-Sep-2014 Discontinued ZITHROMAX Z-MEREDITH, 250MG (Oral Tablet) tad Tablet Tablet qd for 0 days Quantity: 1 {Package} Refills: 0 Ordered:21-Apr-2015 Slarb [employer] MACHINE OPERATOR, Laura Start : 15-Jan-2015 End : 21-Apr-2015 Discontinued ZITHROMAX Z-MEREDITH, 250MG (Oral Tablet) tad Tablet qd for 0 days Quantity: 1 {Packet} Refills: 0 Ordered:02-Jul-2014 George Oscar LPN Start : 19-Jun-2014 End : [...] V85.33) Status: Inactive as of 05-May-2017 BMI 36.0-36.9,adult (Z68.36, V85.36) Status: Inactive as [...] Status: Resolved as of 06-Feb-2015 Vaccine for hpivtoodqa-iecxkqr-dqoszttxd with poliomyelitis (Z23, V06.3) Status: Inactive as of 20-Jul-2012 Wheezing (Renamed from Asthmatic breathing) (R06.2, 786.07) Status: Resolved as of 06-Feb-2015 Procedures Procedure Dates Details Cholecystectomy Completed Comments: cebul Colonoscopy Completed Comments: Esau -- 07.16.13 Hysterectomy; Total Completed Comments: 2006- no cancer - heavy periods thyroid biopsy 2015-neg Completed Tonsillectomy Completed tonsillectomy/tympanosty Completed Date Value Details 28-Mar-2018 NCS and/or EMG Patient Result: Comments: See Note; NOTES: [facility] Pulmonary Services/Neurology [address] [place] [address] MR#: [id number] Acct: [id number] Name: AMY VALDOVINOS Rep #: [id number] : 0 1965 52 From: Adebayo Canchola MD Referring Dr: Blayne Welsh DPM Status: REG CLI Ordering Dr: Date: Location: [facility] Sex: F C NCS and/or EMG Patient Report Ordering Doctor: Blayne Welsh DATE OF SERVICE: 03/28/18 Is a bilateral lower extremity nerve conduction study and EMG of the right lower extremity performed on this 52-year-old female with paresthesias in her feet bilaterally worse on th e right side. She says she is [...] Dictated: 03/28/18 1021 Date Transcribed: 03/28/18 1021 Director Skills: NF Signed 10-Mar-2018 Lower Ext No Joint W/WO Cont Result: Comments: See Note; NOTES: [facility] Imaging Services [address] [place] [address] Lower Ext No Joint W/WO Cont MR#: [id number] Acct: [id number] Name: AMY VALDOVINOS Rep #: [id number] : 1965 F 52 From: Ge Moffett MD PCP: Marcelle Daley DO Status: REG CLI Study: Lower Ext No Joint W/WO Cont Date of Exam: 03/10/18 Exam# [id number] Ordering Dr: Marcelle Daley DO STUD Y: [...] Service support , CC: Marcelle Daley DO Director Skills: Signed 06-Mar-2018 Venous Duplex Lower Extremity Result: Comments: See Note; NOTES: [facility] Cardiovascular Services [address] [place] [address] Venous Duplex US, Unilateral 03/06/18 1435 MR#: [id number] Acct: [id number] Name: AMY CHOI Rep #: [id number] : 1965 52 From: Jared Hines MD Attending Dr: Marcelle Daley DO Status: REG CLI Ordering Dr: Marcelle Daley DO Date: 03/06/18 Location: [facility] Sex: F C Admitted: Karthaus son For Study: LEG SWELLING RIGHT LEFT [...] Dictated: 03/06/18 1435 Date Transcribed: 03/06/18 1623 Director Skills: Signed 19-Feb-2018 Abdomen/Pelvis WITH Contrast Result: Comments: See Note; NOTES: [facility] Imaging Services [address] [place] [address] Abdomen/Pelvis WITH Contrast MR#: [id number] Acct: [id number] Name: AMY VALDOVINOS Rep #: [id number] : 1965 F 52 From: Jono Dumont MD PCP: Marcelle Daley DO Status: REG CLI Study: Abdomen/Pelvis WITH Contrast Date of Exam: 02/19/18 Exam# [id number] Ordering Dr: Marcelle DaleyDY: CT ABDOMEN AND PELVIS WITH CONTRAST REASON [...] Jono Dumont MD at 10:35 EDT Tel [phone], Service support , CC: Marcelle Daley DO Director Skills: Signed 17-Oct-2017 Thyroid Result: Comments: See Note; NOTES: [facility] Imaging Services [address] [place] [address] Thyroid MR#: [id number] Acct: [id number] Name: AMY VALDOVINOS Rep #: [id number] : [birth year] F 52 From: Shine Sawyer MD PCP: Marcelle Daley DO Status: REG CLI Study: Thyroid Date of Exam: 10/17/17 Exam# [id number] Ordering Dr: Marcelle Daley DO STUDY: THYROID ULTRASOUND REASON FOR EXAM: F emale, 52 years old. Follow-up nodules. TECHNIQUE: Ultrasound [...] Service support , CC: Marcelle Daley DO Director Skills: Signed 01-Aug-2017 SCREENING MAMM (CAD), BILAT Result: Comments: See Note; NOTES: [facility] Imaging Services [address] [place] [address] SCREENING MAMM (CAD), BILAT MR#: [id number] Acct: [id number] Name: AMY VALDOVINOS Rep #: [id number] : 1965 F 52 From: Jono Dumont MD PCP: Marcelle Daley DO Status: REG CLI Study: SCREENING MAMM (CAD), BILAT Date of Exam: 08/01/17 Exam# [id number] Ordering Dr: Marcelle Daley DO [facility] MOGRAPHY - BILATERAL SCREENING REASON FOR [...] delay biopsy of a clinically suspicious abnormality. [id number] Electronically Signed: Alma Dumont MD at 15:11 EST Tel [phone], Service support , CC: Marcelle Daley DO Director Skills: Signed 01-May-2017 Venous Duplex Lower Extremity Result: Comments: See Note; NOTES: [facility] Cardiovascular Services [address] [place] [address] Venous Duplex US, Unilateral 04/28/17 1357 MR#: [id number] Acct: [id number] Name: Kacey FUCHSEAMY TEMITOPE Rep #: [id number] : 1965 51 From: Jared Hines MD [...] and Student 0 05/01/17 0854 Date Jared Hines MD CC: Marcelle Daley DO Date Dictated: 04/28/17 1357 Date Transcribed: 05/01/17 0855 Director Skills: Signed 28-Apr-2017 Foot min 3 Views Result: Comments: See Note; NOTES: [facility] Imaging Services [address] [place], [place] [address] [place] [address] Foot min 3 Views MR#: [id number] Acct: [id number] Name: AMY VALDOVINOS Rep #: [id number] D OB: 1965 F 51 From: Amarjit Britton DO PCP: Marcelle Daley DO Status: REG CLI Study: Foot min 3 Views Date of Exam: 04/28/17 Exam# [id number] Ordering Dr: Marcelle Daley DO STUDY: X-RAY [...] Amarjit Britton DO at 20:42 EDT Tel [phone], Service support , CC: Marcelle Daley DO Director Skills: Signed 28-Apr-2017 Knee 4 or More Views Result: Comments: See Note; NOTES: [facility] Imaging Services [address] [place] [address] Knee 4 or More Views MR#: [id number] Acct: [id number] Name: AMY VALDOVINOS Rep #: [id number] : 1965 F 51 From: Amarjit Britton DO PCP: Marcelle Daley DO Status: REG CLI Study: Knee 4 or More Views Date of Exam: 04/28/17 Exam# [id number] Ordering Dr: Marcelle Daley DO STUDY: X-RAY [...] Amarjit Britton DO at 20:31 EDT Tel [phone], Service support , CC: Marcelle Daley DO Director Skills: Signed 23-Mar-2017 Liver Result: Comments: See Note; NOTES: [facility] Imaging Services [address] [place] [address] Liver MR#: [id number] Acct: [id number] Name: AMY VALDOVINOS Rep #: [id number] : [birth year] F 51 From: Jono Dumont MD PCP: Marcelle Daley DO Status: REG CLI Study: Liver Date of Exam: 03/23/17 Exam# [id number] Ordering Dr: Marcelle Daley DO STUDY: ABDOMINAL [...] Jono Dumont MD at 8:50 EDT Tel [phone], Service support , CC: Marcelle Daley DO Director Skills: Signed 31-Aug-2016 Thyroid Result: Comments: See Note; NOTES: [facility] Imaging Services [address] [place] [address] Verdana 4d Thyroid MR#: [id number] Acct: [id number] Name: AMY VALDOVINOS Rep #: [id number] : 1965 F 51 From: Amarjit Britton DO PCP: Marcelle Daley DO Status: REG CLI Study: Thyroid Date of Exam: 08/31/16 Exam# [id number] Ordering Dr: Marcelle Daley DO STUDY: THYROID [...] Amarjit Britton DO at 23:35 EST Tel [phone], Service support [phone], CC: Marcelle Daley DO Director Skills: Signed 09-Jun-2016 Bilat Scrn Digital AND CAD Result: Comments: See Note; NOTES: [facility] Imaging Services [address] [place] [address] Verdana 4d Bilat Scrn Digital AND CAD MR#: [id number] Acct: [id number] Name: AMY VALDOVINOS NNE Rep #: [id number] : 1965 F 51 From: Jono Dumont MD PCP: Marcelle Daley DO Status: REG CLI Study: Bilat Scrn Digital AND CAD Date of Exam: 06/09/16 Exam# [id number] Ordering Dr: Tl Daley DO MAMMOGRAPHY - [...] delay biopsy of a clinically suspicious abnormality. [id number] Electronically Signed: Jono Dumont MD at 15:05 EDT Tel [phone], Servi ce support [phone], CC: Marcelle Daley DO Director Skills: Signed 09-Jun-2016 Dexa Bone Density Study (HP) Result: Comments: See Note; NOTES: [facility] Imaging Services [address] [place] [address] Verdana 4d Dexa Bone Density Study (HP) MR#: [id number] Acct: [id number] Name: AMY VALDOVINOS Rep #: [id number] : 1965 F 51 From: Jono Dumont MD PCP: Marcelle Daley DO Status: REG CLI Study: Dexa Bone Density Study (HP) Date of Exam: 06/09/16 Exam# [id number] Ordering Dr: Marcelle Daley DO STUDY: DUAL [...] / Z-score (0.7) HPBD/Dexa Bone Density Study (HP) IMPRESSION: The patient is c onsidered normal [...] Jono Dumont MD at 8:21 EDT Tel [phone], Service support [phone], CC: Marcelle Daley DO Director Skills: Signed 17-May-2016 Shoulder min 2 Views Result: Comments: See Note; NOTES: [facility] Imaging Services [address] [facility] [place] [address] Verdana 4d Shoulder min 2 Views MR#: [id number] Acct: [id number] Name: AMY VALDOVINOS p #: [id number] : 1965 F 50 From: Jono Dumont MD PCP: Marcelle Daley DO Status: REG CLI Study: Shoulder min 2 Views Date of Exam: 05/17/16 Exam# [id number] Ordering Dr: Marcelle Daley DO STUD Y: [...] Dumont MD 06/05/27 at 12:52 EDT Tel [phone], Service support [phone], CC: Marcelle Daley DO Director Skills: Signed 17-Mar-2016 Foot min 3 Views Result: Comments: See Note; NOTES: [facility] Imaging Services [address] [place] [address] Verdana 4d Foot min 3 Views MR#: [id number] Acct: [id number] Name: AMY VALDOVINOS Rep #: [id number] : 1965 F 50 From: Malcom Emmanuel MD PCP: Marcelle Daley DO Status: REG CLI Study: Foot min 3 Views Date of Exam: 03/17/16 Exam# [id number] Ordering Dr: Marcelle Daley DO STUDY: X-RAY [...] MD at 13:39 EDT , Service support [phone], CC: Marcelle Daley DO Director Skills: Signed 10-Nov-2015 Chest without Contrast Result: Comments: See Note; NOTES: [facility] Imaging Services [address] [place] [address] Verdana 4d Chest without Contrast MR#: [id number] Acct: [id number] Name: AMY GUILLERMO Rep #: [id number] : 1965 F 50 From: Ismael Mejia DO PCP: Marcelle Daley DO Status: REG CLI Study: Chest without Contrast Date of Exam: 11/10/15 Exam# [id number] Ordering Dr: Mabel Daley ra, DO ADDENDUM by Ismael Mejia on 11/23/15 at 0952 ADDENDUM ADDENDUM: Review of the soft ti ssues of the supraclavicular regions demonstrate no evidence of lymphadenopathy or other soft tissue abnormality. Electronically Signed: Ismael Mejia DO at 9:52 EDT Tel [phone], Serv ice support [phone], 11/23/15 0952 Date cc: Marcelle Daley DO [...] Ismael Mejia DO at 21:20 EDT Tel [phone], [place] support [phone], CC: Marcelle Daley DO Director Skills: Signed 10-Nov-2015 Chest without Contrast Result: Comments: See Note; NOTES: [facility] Imaging Services [address] [place] [address] Verdana 4d Chest without Contrast MR#: [id number] Acct: [id number] Name: AMY GUILLERMO Rep #: [id number] : 1965 F 50 From: Ismael Mejia DO PCP: Marcelle Daley DO Status: REG CLI Study: Chest without Contrast Date of Exam: 11/10/15 Exam# [id number] Ordering Dr: Mabel Daley ra, DO STUDY: [...] Ismael Mejia DO at 21:20 EDT Tel [phone], Service support [phone], CC: Marcelle Daley DO Director Skills: Signed 10-Nov-2015 Thyroid Result: Comments: See Note; NOTES: [facility] Imaging Services [address] [place] [address] Verdana 4d Thyroid MR#: [id number] Acct: [id number] Name: AMY VALDOVINOS Rep #: [id number] : 1965 F 50 From: Jono Dumont MD PCP: Marcelle Daley DO Status: REG CLI Study: Thyroid Date of Exam: 11/10/15 Exam# [id number] Ordering Dr: Marcelle Daley DO STUDY: THYROI [...] Jono swann MD at 10:10 EDT Tel [phone], Service support [phone], CC: Marcelle Daley DO Director Skills: Signed 08-Sep-2015 EKG (73817) Comments: ekg showed normal sinus rhythym, left axis, no acute st/t wave changes lv strain Result: [MEASUREMENTS ANALYSIS] Date of Test: 09/08/2015 12:10:48; Heart Rate: 55; WI Interval: 164; QRS: 114; QT Interval: 462; Corrected QT Interval (QTc): 454; P Wave Barnhart: 34; QRS Wave Barnhart: -29; T Wave Axi s: -16; Blood Pressure: 148/98 [ECG DIAGNOSTIC STATEMENTS] Date of Test: 09/08/2015 12:10:48; Summary: Sinus Bradycardia -Left axis. Voltage criteria for LVH (S(V1)+R(V6) exceeds 3.50 mV). -Nonspeci fic ST depression -Seen with left ventricular hypertrophy (strain) or digitalis effect. ABNORMAL 26-May-2015 Bilat Scrn Digital AND CAD Result: Comments: See Note; NOTES: [facility] Imaging Services [address] [place] [address] Breast Imaging Report MR#: [id number] Acct: [id number] Name: AMY VALDOVINOS Rep #: [id number] : 1965 F 50 From: Jono Dumont MD PCP: Marcelle Daley DO Status: REG CLI Study: Bilat Scrn Digital AND CAD Date of Exam: 05/26/15 Exam# [id number] Ordering Dr: Marcelle Daley DO MAMMOGRAPHY - [...] Jono Dumont MD at 15:40 EDT Tel [phone], Service support [phone], CC: Marcelle Daley DO Director Skills: Signed 18-May-2015 Chest PA and Lateral Result: Comments: See Note; NOTES: [facility] Imaging Services [address] [place] [address] Radiology Report MR#: [id number] Acct: [id number] Name: AMY VALDOVINOS Rep #: [id number] : 1965 F 49 From: Jono Dumont MD PCP: Marcelle Daley DO Status: REG CLI Study: Chest PA and Lateral Date of Exam: 05/18/15 Exam# [id number] Ordering Dr: Vivian Washington STUDY: X-RA Y [...] Jono Dumont MD at 14:19 EDT Tel [phone], Service support [phone], RAD/Chest PA and Lateral IMPRESSION: No acute abnormality is seen. Electronically Signed: Jono Dumont MD at 14:19 EDT Tel [phone], Service support [phone], CC: Vivian Washington; Marcelle Daley DO Director Skills: Signed 15-Jan-2015 Chest PA and Lateral Result: Comments: See Note; NOTES: [facility] Imaging Services [address] [place] [address] Radiology Report MR#: [id number] Acct: [id number] Name: AMY VALDOVINOS Rep #: [id number] : 1965 F 49 From: Shine Sawyer MD PCP: Marcelle Daley DO Status: REG CLI Study: Chest PA and Lateral Date of Exam: 01/15/15 Exam# [id number] Ordering Dr: Jing Harrison DO STUDY : [...] examination of the chest. Electronically Signed: Shine Saweyr MD at 23:41 EDT , Service support [phone], RAD/Chest PA and Lateral IMPRESSION: Normal x-ray examination of the chest. Electronically Signed: Shine Sawyer MD at 23:41 E DT , Service support [phone], CC: Marcelle Daley DO; Jing Harrison DO Director Skills: Signed 15-Jan-2015 Inhaler Demo (31274) Result: Comments: I instructed pt to use inhaler, then she redemonstrated the technique back to me. 15-Jan-2015 Spirometry (75681) Comments: obsrtuction present Result: 29-Oct-2014 Abdomen WITH and W/O Contrast Result: Comments: See Note; NOTES: [facility] Imaging Services [address] [place] [address] MRI Report MR#: [id number] Acct: [id number] Name: AMY VALDOVINOS Rep #: [id number] : 1965 F 49 From: Heavenly Rojas MD PCP: Marcelle Daley DO Status: REG CLI Study: Abdomen WITH and W/O Contrast Date of Exam: 10/29/14 Exam# [id number] Ordering Dr: Stanton Caal MD STUDY: M [...] at 1 1:15 EDT , Service support [phone], CC: Marcelle Daley DO; Stanton Caal MD Director Skills: Signed 23-Jun-2014 Esophagus Only Result: Comments: See Note; NOTES: [facility] Imaging Services [address] [place] [address] Radiology Report MR#: [id number] Acct: [id number] Name: AMY VALDOVINOS Rep #: [id number] : 1965 F 49 From: Jono Dumont MD PCP: Status: REG CLI Study: Esophagus Only Date of Exam: 06/23/14 Exam# [id number] Ordering Dr: Jing Harrison DO STUDY: X-RAY [...] Jono Dumont MD at 9:21 EST Tel [phone], Service support [phone], RAD/Esophagus Only IMPRESSION: Small sliding hiatal hernia with no evidence of gastroesophageal reflux. Electronically Signed: Jono Dumont MD at 9:21 EST Tel [phone], Service support [phone], CC: Jing Harrison DO Director Skills: Signed 23-Jun-2014 Thyroid Result: Comments: See Note; NOTES: [facility] Imaging Services [address] [place] [address] Ultrasound Report MR#: [id number] Acct: [id number] Name: AMY VALDOVINOS Rep #: [id number] : 1965 F 49 From: Jono Dumont MD PCP: Status: REG CLI Study: Thyroid Date of Exam: 06/23/14 Exam# [id number] Ordering Dr: Jing Harrison DO STUDY: THYROID [...] Jono Dumont MD at 15:38 EST Tel [phone], Service support [phone], C C: Jing Harrison DO Director Skills: Signed 30-Nov-2013 Abdomen/Pelvis WITH Contrast Result: Comments: See Note; NOTES: [facility] Imaging Services [address] [place] [address] CAT Scan Report MR#: [id number] Acct: [id number] Name: AMY VALDOVINOS Rep #: [id number] : 1965 F 48 From: Jesse Carrington MD PCP: Marcelle Daley DO Status: REG CLI Study: Abdomen/Pelvis WITH Contrast Date of Exam: 11/30/13 Exam# [id number] Ordering Dr: Vivian Washington STUDY: CT ABDOMEN [...] Dr. Iglesia Lee M.D.; Stanton Caal MD Director Skills: Signed 26-Nov-2013 Kidney and Bladder Result: Comments: See Note; NOTES: [facility] Imaging Services [address] [place] [address] Ultrasound Report MR#: [id number] Acct: [id number] Name: AMY VALDOVINOS Rep #: [id number] : 1965 F 48 From: Jono Dumont MD PCP: Marcelle Daley DO Status: REG CLI Study: Kidney and Bladder Date of Exam: 11/26/13 Exam# [id number] Ordering Dr: Vivian Washington STUDY: RENAL ULTRASOUND [...] at 12:56 EDT Tel , Service support [phone], CC: Vivian Washington; Marcelle Daley DO Director Skills: Signed 31-May-2013 Knee 4 or More Views Result: Comments: See Note; NOTES: [facility] Imaging Services [address] [place] [address] Radiology Report MR#: [id number] Acct: [id number] Name: AMY VALDOVINOS Rep #: [id number] : 1965 F 48 From: Jono Dumont MD PCP: Status: REG CLI Study: Knee 4 or More Views Date of Exam: 05/31/13 Exam# [id number] Ordering Dr: Vivian Washington STUDY: X-RAY - [...] May 31, 2013 at 1:16:23 PM EDT [phone] Electronically Signed GP/GP If you are the referring physician and would like to consult with the radiologist w ho provided this interpretation, please contact Jono Dumont M.D. at [phone]. If this radiologist is unavailable, you will be directed to another radiologist to assist. If you are a veronica ent with a question regarding this report, please contact your referring physician directly. Professional Interpretation Provided By: [employer], Phone , These docum ents contain legally [...] destruction of these documents. 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 Status: Active Smoking Status Name Dates Details Never smoker Vital Signs Date Test Result Details :04 Temperature 97.7 f Comments: Method: Temporal [...] kg/m2 Body Surface Area Calculated 2.09 m2 13-Yot-105762:02 Temperature 98 f Comments: Method: Temporal Pulse [...] kg/m2 Body Surface Area Calculated 2.19 m2 81-Qli-166514:16 Temperature 97.5 f Comments: Method: Temporal Pulse [...] Body Surface Area Calculated 2.25 m2 :59 Temperature 97.9 f Comments: Method: Oral Pulse [...] kg/m2 Body Surface Area Calculated 2.25 m2 86-Hep-301284:00 Temperature 98.4 f Comments: Method: Oral Pulse [...] kg/m2 Body Surface Area Calculated 2.18 m2 :03 Temperature 97.8 f Pulse 64 /min Comments: [...] 2.21 m2 Results Date Description Value Details :39 RHEUMATOID FACTOR-QUANT Comments: send copy to Dr. Fraser - [phone]; A courtesy copy of this report has been sent [phone].PATIENT NOT FASTINGPERFORMED BY: [employer] Pgsqhf8043 [facility] [id number] (29105) RA Latex Turbid. <10.0 {IU/mL} (Normal) Range: 0.0-13.9 :39 IMMUNOFIXATION, SERUM (16597) Comments: send copy to Dr. Fraser [phone]; A courtesy copy of this report has been sent [phone].PATIENT NOT FASTINGPERFORMED BY: UniServityHealthSouth - [facility] Hospital of UnionUxtvyb2722 [facility] [id number] [place] Information: FX DR MEIER [phone] Immunoglobulin M, Qn, Serum 43 mg/dL (Normal) Range: 26-217 Immunoglobulin A, Qn, Serum 356 mg/dL (Abnormal) Range: 87-352 Immunoglobulin G, Qn, Serum 969 mg/dL (Normal) Range: 700-1600 Immunofixation Result, Serum IFEAL (Normal) Comments: Immunofixation shows IgA monoclonal protein with lambda light chainspecificity. :39 HIV-1 ANTIBODY (62766) Comments: send copy to Dr. Evelio Kaur [phone]; A courtesy copy of this report has been sent [phone].PATIENT NOT FASTINGPERFORMED BY: [facility] [id number] HIV Screen 4th Generation wRfx Non Reactive (Normal) :39 HEPATITIS C ANTIBODY (87362) Comments: send copy to Dr. Evelio Kaur [phone]; A courtesy copy of this report has been sent [phone].PATIENT NOT FASTINGPERFORMED BY: [facility] [id number] Hep C Virus Ab <0.1 {s/co_ratio} (Normal) Range: 0.0-0.9 Comments: Negative: < 0.8 Indeterminate: 0.8 - 0.9 Positive: > 0.9 . The CDC recommends that a positive HCV antibody result be followed up with a HCV Nucleic Acid Amplification test (965457). :39 FOLIC ACID SERUM (22872) Comments: send copy to Dr. Evelio Kaur [phone]; A courtesy copy of this report has been sent [phone].PATIENT NOT FASTINGPERFORMED BY: [employer] Ktgcsr7408 [facility] [id number] Folate (Folic Acid), Serum 14.3 ng/mL (Normal) Comments: A serum folate concentration of less than 3.1 ng/mL isconsidered to represent clinical deficiency. :39 ANTIEXTARACT NUCLEAR AG 6338 Comments: send copy to Dr. Evelio Kaur [phone]; A courtesy copy of this report has been sent [phone].PATIENT NOT FASTINGPERFORMED BY: [facility]aejSaint [facility] [id number] (28890) Up Antibodies <0.2 {AI} (Normal) Range: 0.0-0.9 DOOR SLINGER Antibodies <0.2 {AI} (Normal) Range: 0.0-0.9 54-Xrn-275165:39 LOLITA (ANTINUCLEAR ANTIBODY) Comments: send copy to Dr. Fraser - [phone]; A courtesy copy of this report has been sent [phone].PATIENT NOT FASTINGPERFORMED BY: [facility] [id number] (68485) LOLITA Direct Negative (Normal) 25-Jul-20189:13 Vitamin B-12 (cyanocobalamin) Comments: PATIENT WAS FASTINGPERFORMED BY: [employer]70 [facility] [id number] (66179) Vitamin B12 341 pg/mL (Normal) Range: 232-1245 25-Jul-20189:13 CBC with auto diff (81579) Comments: PATIENT WAS FASTINGPERFORMED BY: [employer] Zvhnst7722 [facility] [id number] Immature Grans (Abs) 0.0 {x10E3/uL} (Normal) Range: [...] PANEL, COMPREHENSIVE Comments: PATIENT WAS FASTINGPERFORMED BY: LabCoHealthSouth - Special[facility] Hospital of UnionEkntmg2886 [facility] [id number] (46244) ALT (SGPT) 19 [iU]/L (Normal) Range: 0-32 [...] Glucose 80 mg/dL (Normal) Range: 65-99 25-Jul-20189:13 NQEVZ-APUZNPXPERE-FVQHJ (69366) Comments: PATIENT WAS FASTINGPERFORMED BY: [employer] Osmpto2948 [facility] [id number] AFP, Serum, Tumor Marker 3.6 ng/mL (Normal) Range: 0.0-8.3 Comments: Ozzie ECLIA methodology 80-Akg-459053:05 URINE KENROY CULTURE-IDENTIFICATN Comments: PATIENT NOT FASTINGPERFORMED BY: [facility] Erfjyh5189 [facility] [id number] Information: SRC:UC (15107) Result 1 MUG (Normal) Comments: Mixed urogenital flora1,000 Colonies/mL Urine Culture,Comprehensive Final report (Normal) 31-Xqb-659699:56 Urinalysis, Office (01687) UA - LEUKOCYTE ESTERASE Trace (Normal) UA - NITRITE Negative (Normal) URINE UROBILINGN JUAN TIMED Normal mg/dL (Normal) UA - PROTEIN Trace mg/dL (Normal) UA - PH 5 (Abnormal) UA - BLOOD Negative (Normal) UA - SPECIFIC GRAVITY 1.030 (Abnormal) UA - KETONES Negative mg/dL (Normal) UA - BILIRUBIN Small (Normal) UA - GLUCOSE Negative (Normal) 44-Eoe-637412:28 CBC, PLATELETS & AUT DIFF Comments: PATIENT WAS FASTINGPERFORMED BY: [employer] Wxbzex0331 [facility] [id number] (55514) Immature Grans (Abs) 0.0 {x10E3/uL} (Normal) Range: [...] 3.77-5.28 WBC 6.8 {x10E3/uL} (Normal) Range: 3.4-10.8 :28 VITAMIN B-12 (CYANOCOBALAMIN) Comments: PATIENT WAS FASTINGPERFORMED BY: LabCoHealth[facility] of UnionDmskvt8913 [facility] [id number] (70114) Vitamin B12 413 pg/mL (Normal) Range: 232-1245 :28 Vitamin D Hydroxy (71410) Comments: PATIENT WAS FASTINGPERFORMED BY: [facility] Wsizew7509 [facility] [id number] Vitamin D, 25-Hydroxy 52.6 ng/mL (Normal) Range: 30.0-100.0 Comments: Vitamin D deficiency has been defined by the [place] of[facility] Hospitalcine and an Endocrine Society practice guideline as alevel of serum 25-OH vitamin D less than 20 ng/mL (1,2).The Endocrine Society went on to further define vitamin Dinsufficiency as a level between 21 and 29 ng/mL (2).1. IOM ([place] of Medicine). 2010. Dietary reference intakes for calcium and D. [place]: The National Academies Press.2. Myla MF, Javier NC, Panfilo MANN, et al. Evaluation, treatment, and prevention of vitamin D deficiency: an Endocrine Society clinical practice guideline. JCEM. 2010; 96(7):1911-30. 30-Tyl-336629:28 LIPID PANEL (91143) Comments: PATIENT WAS FASTINGPERFORMED BY: [facility] ModeMymich[facility] Sault6370 [facility] [id number] LDL/HDL Ratio 1.3 {ratio} (Normal) Range: 0.0-3.2 Comments: LDL/HDL Ratio Men Women 1/2 Avg.Risk 1.0 1.5 Av g.Risk 3.6 3.2 2X Avg.Risk 6.2 5.0 3X Avg.Risk 8.0 6.1 LDL Cholesterol Calc 51 mg/dL (Normal) Range: 0-99 VLDL Cholesterol [place] 11 mg/dL (Normal) Range: 5-40 HDL Cholesterol 38 mg/dL (Abnormal) Triglycerides 55 mg/dL (Normal) Range: 0-149 Cholesterol, Total 100 mg/dL (Normal) Range: 100-199 69-Fzr-531451:38 HgA1C , Office (96818) HgA1C , Office 6.1 % (Normal) Range: 4.6 - 7.1 69-Lti-642449:28 HGB A1C (57030) Comments: PATIENT WAS FASTINGPERFORMED BY: Synos[facility] TherapeuticsHealthSouth - Specialty Hospital of UnionIttbfy3751 [facility] [id number] Hemoglobin A1c 5.6 % (Normal) Range: 4.8-5.6 Comments: . Prediabetes: 5.7 - 6.4 Diabetes: >6.4 Glycemic control for adults with diabetes: <7.0 82-Pxu-292609:28 PSUVW-MSJWOVZVIHX-NQEJB (95048) Comments: PATIENT WAS FASTINGPERFORMED BY: [facility]6370 [facility] [id number] AFP, Serum, Tumor Marker 3.6 ng/mL (Normal) Range: 0.0-8.3 Comments: Ozzie ECLIA methodology 29-Kkx-419227:28 MICROALBUMIN: CREATININE RATIO Comments: PATIENT WAS FASTINGPERFORMED BY: [place] ModeSamantha V[place] 9743770 [facility] [id number] (98648) AND (43763) Alb/Creat Ratio 4.1 {mg/g_creat} (Normal) Range: 0.0-30.0 Albumin, Urine 5.8 ug/mL (Normal) Creatinine, Urine 139.9 mg/dL (Normal) 72-Bmw-542562:28 METABOLIC PANEL, COMPREHENSIVE Comments: PATIENT WAS FASTINGPERFORMED BY: [employer] Lepxhf9909 [facility] [id number]; review at 05/07 appt (23787) ALT (SGPT) 19 [iU]/L (Normal) Range: 0-32 [...] 6-24 Glucose 81 mg/dL (Normal) Range: 65-99 23-Jan-20188:21 LIPID PANEL (21778) Comments: PATIENT WAS FASTINGPERFORMED BY: Synos[facility] TherapeuticsHealthSouth - Specialty Hospital of UnionFktwof2790 [facility] [id number] LDL/HDL Ratio 1.6 {ratio} (Normal) Range: 0.0-3.2 [...] Range: 100-199 :21 CBC W/AUTO DIFF WBC (35478) Comments: PATIENT WAS FASTINGPERFORMED BY: [facility] Gfnawb3751 [facility] [id number]; review on 01/31 Immature Grans (Abs) 0.0 [...] PANEL, COMPREHENSIVE Comments: PATIENT WAS FASTINGPERFORMED BY: [employer] Iduqrq6098 [facility] [id number] (94243) ALT (SGPT) 18 [iU]/L (Normal) Range: 0-32 [...] 6-24 Glucose 98 mg/dL (Normal) Range: 65-99 01-Net-503907:22 TSH (05918) Comments: PATIENT NOT FASTINGPERFORMED BY: [facility] TherapeuticsHealthSouth - Specialty Hospital of UnionVcvkxf1478 [facility] [id number] TSH 1.150 {uIU/mL} (Normal) Range: 0.450-4.500 37-Xkm-333031:22 SED RATE ERYTHROCYTE (55152) Comments: PATIENT NOT FASTINGPERFORMED BY: [facility] [facility] [place] [id number] Sedimentation Rate-Westergren 8 mm/h (Normal) Range: 0-40 50-Epz-101397:22 C-REACTIVE PROTEIN (78040) Comments: PATIENT NOT FASTINGPERFORMED BY: [facility] [facility] [place] [id number] C-Reactive Protein, Quant 2.5 mg/L (Normal) Range: 0.0-4.9 48-Fkl-418264:22 LOLITA (ANTINUCLEAR ANTIBODY) Comments: PATIENT NOT FASTINGPERFORMED BY: [facility]6370 [facility] [place] [id number] (53612) LOLITA Direct Negative (Normal) 89-Fmc-220424:22 VITAMIN B-12 (CYANOCOBALAMIN) Comments: PATIENT NOT FASTINGPERFORMED BY: [facility]6370 [facility] [place] [id number] (77293) Vitamin B12 340 pg/mL (Normal) Range: 232-1245 65-Iqh-214317:22 IRON (23710) Comments: PATIENT NOT FASTINGPERFORMED BY: [facility]6[address] [facility] [place] [id number] Iron, Serum 57 ug/dL (Normal) Range: 27-159 79-Wdo-062668:22 FERRITIN (98664) Comments: PATIENT NOT FASTINGPERFORMED BY: [facility]6[address] [facility] [place] [id number] Ferritin, Serum 220 ng/mL (Abnormal) Range: 15-150 34-Iip-747201:27 Albumin/Creatinine Comments: PATIENT WAS FASTINGPERFORMED BY: [facility]6370 [facility] [place] [id number] BY: [address] [id number] Ratio,Urine Alb/Creat Ratio 5.5 {mg/g_creat} (Normal) Range: 0.0-30.0 Albumin, Urine 9.6 ug/mL (Normal) Creatinine, Urine 176.1 mg/dL (Normal) 77-Esk-228611:27 Vitamin D Hydroxy Comments: PATIENT WAS FASTINGPERFORMED BY: [employer]70 [facility] [id number] BY: [employer] [id number] (35992) Vitamin D, 25-Hydroxy 44.1 ng/mL (Normal) Range: 30.0-100.0 Comments: Vitamin D deficiency has been defined by the [place] of[place]icine and an Endocrine Society practice guideline as alevel of serum 25-OH vitamin D less than 20 ng/mL (1,2).The Endocrine Society went on to further define vitamin Dinsufficiency as a level between 21 and 29 ng/mL (2).1. IOM ([place] of Medicine). 2010. Dietary reference intakes for calcium and D. [place]: The National Academies Press.2. Myla MF, Javier STUART, Panfilo MANN, et al. Evaluation, treatment, and prevention of vitamin D deficiency: an Endocrine Society clinical practice guideline. JCEM. 2010; 96(7):1911-30. 62-Bpf-047477:27 HGB A1C (03148) Comments: PATIENT WAS FASTINGPERFORMED BY: [employer]6370 [facility] [id number] BY: [employer] [id number] Hemoglobin A1c 5.7 % (Abnormal) Range: 4.8-5.6 Comments: . Pre-diabetes: 5.7 - 6.4 Diabetes: >6.4 Glycemic control for adults with diabetes: <7.0 38-Yko-856982:27 KLDQL-JCLOMOWHGKH-CIEDV (37220) Comments: PATIENT WAS FASTINGPERFORMED BY: [employer]70 [facility] [id number] BY: [employer] [id number] AFP, Serum, Tumor Marker 4.0 ng/mL (Normal) Range: 0.0-8.3 Comments: Ozzie SyllabusterIA methodology 19-Asv-567763:27 METABOLIC PANEL, Comments: PATIENT WAS FASTINGPERFORMED BY: [facility] TherapeuticsHealthSouth - Specialty Hospital of UnionPqzynm2273 [facility] [id number] BY: Lab[address] [id number] COMPREHENSIVE (73333) ALT (SGPT) 21 [iU]/L (Normal) Range: 0-32 [...] Glucose, Serum 84 mg/dL (Normal) Range: 65-99 35-Mzm-768629:27 CBC with auto diff Comments: PATIENT WAS FASTINGPERFORMED BY: Syn[employer] TherapeuticsApril [place] 4767770 [facility] [id number] BY: [address] [id number] (05143) Immature Grans (Abs) 0.0 {x10E3/uL} (Normal) Range: [...] 3.77-5.28 WBC 7.7 {x10E3/uL} (Normal) Range: 3.4-10.8 57-Lqr-513793:27 LIPID PANEL (16258) Comments: PATIENT WAS FASTINGPERFORMED BY: CB [facility] Ywosri6613 [facility] [id number] BY: BN [facility] [address] [id number] LDL/HDL Ratio 1.5 {ratio_units} (Normal) Range: 0.0-3.2 Comments: LDL/HDL Ratio Men Women 1/2 Avg.Risk 1.0 1.5 Av g.Risk 3.6 3.2 2X Avg.Risk 6.2 5.0 3X Avg.Risk 8.0 6.1 LDL Cholesterol Calc 69 mg/dL (Normal) Range: 0-99 VLDL Cholesterol [place] 17 mg/dL (Normal) Range: 5-40 HDL Cholesterol 46 mg/dL (Normal) Triglycerides 85 mg/dL (Normal) Range: 0-149 Cholesterol, Total 132 mg/dL (Normal) Range: 100-199 50-Jqx-635520:27 IGA/IGD/IGG/IGM-EACH (30701) Comments: PATIENT WAS FASTINGPERFORMED BY: LabCoApril Ville 4767770 [facility] [id number] BY: [facility]Co[address] [id number] Immunoglobulin E, Total 18 {IU/mL} (Normal) Range: 0-100 Immunoglobulin M, Qn, Serum 43 mg/dL (Normal) Range: 26-217 Immunoglobulin A, Qn, Serum 332 mg/dL (Normal) Range: 87-352 Immunoglobulin G, Qn, Serum 848 mg/dL (Normal) Range: 700-1600 6-Kuc-454754:23 METABOLIC PANEL, COMPREHENSIVE Comments: PATIENT NOT FASTINGPERFORMED BY: LabEvolution RoboticsHealthSouth - Specialty Hospital of UnionPzwtue0265 [facility] [id number] (63566) ALT (SGPT) 16 [iU]/L (Normal) Range: 0-32 [...] Glucose, Serum 92 mg/dL (Normal) Range: 65-99 19-Xqs-692427:10 RUBEOLA IgG (23740) Comments: PATIENT NOT FASTINGPERFORMED BY: [employer] Yeqiaq0526 [facility] [id number] Rubeola Ab, IgG 44.9 AU/mL (Normal) Comments: Negative <25.0 Equivocal 25.0 - 29.9 Positive >29.9 Presence of antibodies to Rubeola is presumptive evidence of immunity except when acute infection is suspected. 46-Dvm-797656:10 RUBELLA IgG (44134) Comments: PATIENT NOT FASTINGPERFORMED BY: [employer] Kduqva1098 [facility] [id number] Rubella Antibodies, IgG 17.40 {index} (Normal) Comments: Non-immune <0.90 Equivocal 0.90 - 0.99 Immune >0.99 :10 MUMPS IgG (52157) Comments: PATIENT NOT FASTINGPERFORMED BY: [employer] Bqcnjz5940 [facility] [id number] Mumps Abs, IgG >300.0 AU/mL (Normal) Comments: Negative <9.0 Equivocal 9.0 - 10.9 Positive >10.9 A positive result genera lly indicates past exposure to Mumps virus or previous vaccination. :23 HEPATITIS C ANTIBODY (75226) Comments: PATIENT NOT FASTINGPERFORMED BY: [employer] Dhrsqq8867 [facility] [id number] Hep C Virus Ab 0.1 {s/co_ratio} (Normal) Range: 0.0-0.9 Comments: Negative: < 0.8 Indeterminate: 0.8 - 0.9 Positive: > 0.9 . The CDC recommends that a positive HCV antibody result be followed up with a HCV Nucleic Acid Amplification test (682799). :07 AFP, Tumor Marker Comments: Is Patient ? [facility] (refer to report for specific site)refer to report for address and phone number AFP TUMOR 2253 3.9 ng/mL (Normal) Range: 0.0-8.3 Comments: [employer] ECLIA methodologyPerformed at: [employer] - [facility] [address] [id number] Director: Harjinder Houston PhD, Phone: [phone] :07 Comprehensive Metabolic Profil Comments: [facility] Aptcyqqwfz1360 Jennifer [place], [place], [address] GAP 6 (Normal) Range: 5-15 CO2 27.0 [...] 7-18 GLU 80 mg/dL (Normal) Range: 70-110 34-Hgb-998484:07 Hemoglobin A1c Comments: [facility] Lxwrbizrhr8270 [address] [place], [id number] HGB A1C 5.9 % (Normal) Range: 4.2-6.3 54-Pas-940234:07 Lipid Profile Comments: [facility] Kwz[address]av[address] [place]ON[place], [phone] VLDL 18 mg/dL (Normal) Range: 5-40 LDL [...] 200-240 mg/dL Borderline >240 mg/dL High Risk 28-Joa-417369:07 Thyroid Stim Hormone (TSH) Comments: [facility] Moutct[address] [place]ONAY [place], [phone] TSH 1.11 {uIU/mL} (Normal) Range: 0.358-3.74 33-Jyn-094569:07 Vitamin B12 401 pg/mL (Normal) Comments: [facility] Ts[address] [place]ONAY [place], [phone] Range: 211-911 90-Fhx-603742:07 Vitamin D,25 Hydroxy Comments: [facility] Tgtiyxsrdf[address] [place]ONAY [place], [phone] Vitamin D 25-OH 37.7 ng/mL (Normal) Comments: Vitamin D 25(OH) Status Range Deficiency <20 ng/mL (50nmol/L) Insuffciency 20 - 30 ng/mL (50 - 75 nmol/L) Sufficiency 30 - 100 ng/mL (75 - 250 nmol/L) Toxicity >100 ng/mL (>250 nmol/L) :54 TSH (88901) Comments: PATIENT WAS FASTINGPERFORMED BY: LabSpume[facility] Ozfjks5514 Vaca RoadDublin [place] [id number] TSH 1.440 {uIU/mL} (Normal) Range: 0.450-4.500 :54 VITAMIN B-12 (CYANOCOBALAMIN) Comments: PATIENT WAS FASTINGPERFORMED BY: [facility] Dqdybr7553 Vaca RoadDublin [place] [id number] (37980) Vitamin B12 273 pg/mL (Normal) Range: 211-946 :47 Vitamin D Hydroxy Comments: PATIENT WAS FASTINGPERFORMED BY: [employer] [address]ar[address] [id number] BY: [facility] Hsqbed2413 Vaca RoadDublin [place] [id number] (87063) Vitamin D, 25-Hydroxy 29.6 ng/mL (Abnormal) Range: 30.0-100.0 Comments: Vitamin D deficiency has been defined by the [place] of[facility] Hospitalcine and an Endocrine Society practice guideline as alevel of serum 25-OH vitamin D less than 20 ng/mL (1,2).The Endocrine Society went on to further define vitamin Dinsufficiency as a level between 21 and 29 ng/mL (2).1. IOM ([place] of Medicine). 2010. Dietary reference intakes for calcium and D. [place]: The National Academies Press.2. Myla MF, Javier NC, Panfilo MANN, et al. Evaluation, treatment, and prevention of vitamin D deficiency: an Endocrine Society clinical practice guideline. JCEM. 2010; 96(7):1911-30. :47 METABOLIC PANEL, Comments: PATIENT WAS FASTINGPERFORMED BY: [employer] Auajpdidzs7519 [facility] [id number] BY: [facility] A2[employer]logix [facility] [id number] COMPREHENSIVE (84215) ALT (SGPT) 21 [iU]/L (Normal) Range: 0-32 [...] Glucose, Serum 87 mg/dL (Normal) Range: 65-99 9-Gtm-997394:47 LIPOPROTEIN, BLD, BY NMR Comments: PATIENT WAS FASTINGPERFORMED BY: LabCo[address] [id number] BY: LabCoHealthSouth - Special[facility] Hospital of UnionEfobpj5024 [facility] [id number] Information: [id number], 956647 (41754) LP-IR Score 69 (Abnormal) Comments: INSULIN RESISTANCE MARKER <--Insulin Sensitive Insulin Resistant--> Percentile in Reference PopulationInsulin Resistance ScoreLP-IR Score Low 25th 50th 75th High <27 27 45 63 >63LP-IR Score is inaccurate if patient is non-fasting. .The LP-IR score is a laboratory developed i [facility] that has beenassociated with insulin resistance and [...] were developed and their performance characteristicsdetermined by [employer]. These assays have not been cleared by [...] 1600 - 2000 Very High > 2000 1-Rfx-558461:47 MICROALBUMIN: CREATININE Comments: PATIENT WAS FASTINGPERFORMED BY: [employer] [address] [id number] BY: Synosia TherapeuticsHealthSouth - Specialty Hospital of UnionSrbome8454 [facility] [id number] RATIO (37928) AND (67902) Microalb/Creat Ratio 10.3 {mg/g_creat} (Normal) Range: 0.0-30.0 Microalbumin, Urine 16.3 ug/mL (Normal) Creatinine, Urine 157.7 mg/dL (Normal) :47 HGB A1C (29841) Comments: PATIENT WAS FASTINGPERFORMED BY: [employer] [address] [id number] BY: [employer] Xyksly7967 [facility] [id number] Hemoglobin A1c 6.1 % (Abnormal) Range: 4.8-5.6 Comments: . Pre-diabetes: 5.7 - 6.4 Diabetes: >6.4 Glycemic control for adults with diabetes: <7.0 :4 ASPIRATION (SLIDES ONLY) See Note (Normal) Comments: [facility] [address] [place], [place], [address] 5 Comments: Patient: AMY VALDOVINOS : 1965 (51/F) Acct Num: [id number] Phys: Devorah DÍAZ,Richar Unit Num: [id number] Loc: LABSPEC Specimen: [id number] Received: 10/07/16 - 1206 Spec Type: ASPIRATION TISSUES TISSUES: COMMENT The specimen is paucicellular and contains rare benign follicular cells and focal chronic inflammatory cells. Clinical correlation is suggested. CYTOLOGY GROSS Received are eight smears labeled with the patient's name and designated per therequisition as FNA left thyroid. Submitted for staining. 10/07/16 TC:5 CPT: 19738 CYTOLOGY STUDY Slides are reviewed. DIAGNOSIS CYTOLOGY Fine needle aspiration, left thyroid nodule (smears): Negative, consistent with colloid nodule. AM:rg 10/10/16 HEADER OPERATION: Ult rasound-guided fine needle aspiration, left thyroid PRE-OP DIAGNOSIS: Multinodular goiter E04.2 TISSUE SUBMITTED: Fine needle aspiration, left thyroid (8 slides) Signed Enio Madhuri 10/10/16 <signature on file> 5-Kkj-141400:56 JBFAU-VYKEZPFPIIC-NDNIG (25838) Comments: PATIENT WAS FASTINGPERFORMED BY: Anyadir Educationton1447 [facility] [id number] BY: [employer]70 [address] RoadDublin [place] [id number] AFP, Serum, Tumor Marker 3.2 ng/mL (Normal) Range: 0.0-8.3 Comments: Ozzie ECLIA methodology 3-Wrc-880406:56 VITAMIN B-12 (CYANOCOBALAMIN) Comments: PATIENT WAS FASTINGPERFORMED BY: Anyadir Educationton1447 [facility] [id number] BY: [employer]70 [address] RoadDublin [place] [id number] (13221) Vitamin B12 302 pg/mL (Normal) Range: 211-946 3-Mwf-693982:56 Vitamin D Hydroxy Comments: PATIENT WAS FASTINGPERFORMED BY: Anyadir Education[address] [id number] BY: [employer] Rwolmk8865 Vaca RoadDublin [place] [id number] (27623) Vitamin D, 25-Hydroxy 25.1 ng/mL (Abnormal) Range: 30.0-100.0 Comments: Vitamin D deficiency has been defined by the [place] of[place]icine and an Endocrine Society practice guideline as alevel of serum 25-OH vitamin D less than 20 ng/mL (1,2).The Endocrine Society went on to further define vitamin Dinsufficiency as a level between 21 and 29 ng/mL (2).1. IOM ([place] of Medicine). 2010. Dietary reference intakes for calcium and D. [place]: The National Academies Press.2. Myla MF, Javier STUART, Panfilo MANN, et al. Evaluation, treatment, and prevention of vitamin D deficiency: an Endocrine Society clinical practice guideline. JCEM. 2010; 96(7):1911-30. 0-Yzb-287477:56 CBC W/AUTO DIFF WBC Comments: PATIENT WAS FASTINGPERFORMED BY: BN [facility] Nuajlitvlg3120 [facility] [id number] BY: CB [facility] Xisgrz7373 [facility] [id number] (34522) Immature Grans (Abs) 0.0 {x10E3/uL} (Normal) Range: [...] 3.77-5.28 WBC 9.9 {x10E3/uL} (Normal) Range: 3.4-10.8 8-Zwl-032153:56 METABOLIC PANEL, Comments: PATIENT WAS FASTINGPERFORMED BY: LabSpumeNews Krqivtapgq0143 [facility] [id number] BY: LabCoHealth[facility] of UnionPubjte8291 [facility] [id number] COMPREHENSIVE (73262) ALT (SGPT) 18 [iU]/L (Normal) Range: 0-32 [...] Glucose, Serum 89 mg/dL (Normal) Range: 65-99 9-Rqa-775344:56 LIPOPROTEIN, BLD, BY NMR Comments: PATIENT WAS FASTINGPERFORMED BY: [employer] [id number] BY: CHUY LabCoHealthSouth - Specialty Hospital of UnionYbdmex9219 [facility] [id number] (73159) LP-IR Score 66 (Abnormal) Comments: INSULIN RESISTANCE MARKER <--Insulin Sensitive Insulin Resistant--> Percentile in Reference PopulationInsulin Resistance ScoreLP-IR Score Low 25th 50th 75th High <27 27 45 63 >63LP-IR Score is inaccurate if patient is non-fasting. .The LP-IR score is a laboratory developed i [facility] that has beenassociated with insulin resistance and [...] were developed and their performance characteristicsdetermined by [employer]. These assays have not been cleared by [...] 1600 - 2000 Very High > 2000 0-Lyw-717226:10 HgA1C , Office (69125) HgA1C , Office 5.8 % (Normal) Range: 4.6 - 7.1 5-Mxv-835275:10 Blood Glucose , Office (50518) Blood Glucose , Office 80 (Normal) 96-Aft-813212:18 Magnesium (84009) Comments: PATIENT NOT FASTINGPERFORMED BY: [employer]akt[employer] [facility] [id number] Magnesium, Serum 2.3 mg/dL (Normal) Range: 1.6-2.3 :35 HJAAH-RDKPGXCSTAB-USJOC (91905) Comments: PATIENT WAS FASTINGPERFORMED BY: [employer]70 [facility] [id number] AFP, Serum, Tumor Marker 3.0 ng/mL (Normal) Range: 0.0-8.3 Comments: Ozzie ECLIA methodology :35 CBC W/AUTO DIFF WBC Comments: PATIENT WAS FASTINGPERFORMED BY: [employer] [facility] [id number] Information: [id number] (47647) Immature Grans (Abs) 0.0 {x10E3/uL} (Normal) Range: [...] PANEL, COMPREHENSIVE Comments: PATIENT WAS FASTINGPERFORMED BY: LabCoHealth[facility] Hospital of UnionRjkvwk6581 [facility] [id number] (21370) ALT (SGPT) 14 [iU]/L (Normal) Range: 0-32 [...] Glucose, Serum 83 mg/dL (Normal) Range: 65-99 73-Vsx-539538:10 CBC W/AUTO DIFF WBC Comments: PATIENT WAS FASTINGPERFORMED BY: LabCo[facility] of UnionWuuikp2466 [facility] [id number] Information: [id number] (64272) Immature Grans (Abs) 0.0 {x10E3/uL} (Normal) Range: [...] 3.77-5.28 WBC 7.1 {x10E3/uL} (Normal) Range: 3.4-10.8 19-Irq-369238:10 METABOLIC PANEL, COMPREHENSIVE Comments: PATIENT WAS FASTINGPERFORMED BY: [employer] Jkxsly6803 [facility] [id number] (93578) ALT (SGPT) 14 [iU]/L (Normal) Range: 0-32 [...] Glucose, Serum 79 mg/dL (Normal) Range: 65-99 03-Cbz-757062:10 TSH (66024) Comments: PATIENT WAS FASTINGPERFORMED BY: SmartAssetlin6370 [facility] [id number] TSH 0.891 {uIU/mL} (Normal) Range: 0.450-4.500 19-Mse-323962:10 LIPID PANEL (50254) Comments: PATIENT WAS FASTINGPERFORMED BY: [facility]ault6370 [facility] [id number] LDL/HDL Ratio 2.0 {ratio_units} Range: 0.0-3.2 (Normal) [...] ASPIRATION (SLIDES ONLY) See Note (Normal) Comments: [facility] [address] [place], [address] :89 Comments: Patient: AMY VALDOVINOS : 1965 (50/F) Acct Num: [id number] Phys: Richar Fairchild MD Unit Num: [id number] Loc: LABSPEC Specimen: [id number] Received: 12/15/15 - [...] Signed Alexis Levi 12/16/15 <signature on file> :19 TSH (70470) Comments: PATIENT NOT FASTINGPERFORMED BY: [facility] Sault6370 [facility] [id number] TSH 1.250 {uIU/mL} (Normal) Range: 0.450-4.500 48-Gpb-569160:19 T4, FREE (THYROXINE) Comments: PATIENT NOT FASTINGPERFORMED BY: [facility]6370 [facility] [id number] Information: [id number] (11166) T4,Free(Direct) 1.12 ng/dL (Normal) Range: 0.82-1.77 62-Xru-855842:19 T3, FREE (TRIDOTHYRONINE) (07381) Comments: PATIENT NOT FASTINGPERFORMED BY: [facility] ModeMymich[facility] Sault6370 [facility] [id number] Triiodothyronine,Free,Serum 3.3 pg/mL (Normal) Range: 2.0-4.4 29-Ruq-780589:15 SED RATE ERYTHROCYTE (72158) Comments: PATIENT NOT FASTINGPERFORMED BY: [facility]ault6370 [facility] [id number] Sedimentation Rate-Westergren 6 mm/h (Normal) Range: 0-40 70-Dca-888628:15 C-REACTIVE PROTEIN (56640) Comments: PATIENT NOT FASTINGPERFORMED BY: [facility]ault6370 [facility] [id number] C-Reactive Protein, Quant 3.9 mg/L (Normal) Range: 0.0-4.9 87-Yma-411567:15 METABOLIC PANEL, COMPREHENSIVE Comments: PATIENT NOT FASTINGPERFORMED BY: [facility]ault6370 [facility] [id number] (38649) ALT (SGPT) 35 [iU]/L (Abnormal) Range: 0-32 [...] Glucose, Serum 76 mg/dL (Normal) Range: 65-99 75-Uts-012752:15 EBV Panel (50726) Comments: PATIENT NOT FASTINGPERFORMED BY: LabCoHealth[facility] Hospital of UnionUsfxnc0956 [facility] [id number] Interpretation: SPRCS (Normal) Comments: EBV Interpretation Chart [...] <36.0 Equivocal 36.0 - 43.9 Positive >43.9 33-Kjk-522433:15 CBC, PLATELETS & MANUAL Comments: PATIENT NOT FASTINGPERFORMED BY: LabCo[facility] of UnionUoyecp9714 [facility] [id number] Information: [id number] DIFF (38767) Immature Grans (Abs) 0.0 {x10E3/uL} (Normal) Range: [...] 3.77-5.28 WBC 8.8 {x10E3/uL} (Normal) Range: 3.4-10.8 22-Vci-175034:00 CBC with auto diff Comments: PERFORMED BY: LabCo[facility] of UnionIicrsr1117 [facility] [id number] Information: NURSE DRAW (78885) Immature Grans (Abs) 0.0 {x10E3/uL} (Normal) Range: [...] 3.77-5.28 WBC 8.6 {x10E3/uL} (Normal) Range: 3.4-10.8 46-Nia-882103:00 METABOLIC PANEL, COMPREHENSIVE Comments: PERFORMED BY: [employer] [facility] [id number] (58273) ALT (SGPT) 19 [iU]/L (Normal) Range: 0-32 [...] Glucose, Serum 93 mg/dL (Normal) Range: 65-99 93-Yiz-068799:00 OCWRO-EIWUKCIIRZE-DPCOA (44366) Comments: PERFORMED BY: myTips6370 [facility] [id number] AFP, Serum, Tumor Marker 3.2 ng/mL (Normal) Range: 0.0-8.3 Comments: Ozzie ECLIA methodology 91-Dgl-558195:28 HgA1C , Office (69262) HgA1C , Office 5.9 % (Normal) Range: 4.6 - 7.1 3-Jyp-064895:22 URINE KENROY CULTURE-JUAN COL Comments: PATIENT NOT FASTINGPERFORMED BY: [place] [address]4470 [facility] [id number] Information: SRC:[facility] [id number] COUNT (82540) Result 1 NG36 (Normal) Comments: No growth in 36 - 48 hours. Urine Culture,Comprehensive Final report (Normal) 5-Avx-357696:36 Urinalysis, Office (69318) UA - LEUKOCYTE ESTERASE Small (Normal) UA - NITRITE Negative (Normal) URINE UROBILINGN JUAN TIMED Normal mg/dL (Normal) UA - PROTEIN Negative mg/dL (Normal) UA - PH 6.5 (Normal) UA - BLOOD Negative (Normal) UA - SPECIFIC GRAVITY 1.005 (Normal) UA - KETONES Negative mg/dL (Normal) UA - BILIRUBIN Negative (Normal) UA - GLUCOSE Negative (Normal) 96-Dbb-748060:04 CBC W/AUTO DIFF WBC Comments: PATIENT WAS FASTINGPERFORMED BY: Synosia TherapeuticsHealthSouth - Specialty Hospital of UnionOsnvgc5726 [facility] [id number] Information: [id number] (82365) Immature Grans (Abs) 0.0 {x10E3/uL} (Normal) Range: [...] 3.77-5.28 WBC 8.2 {x10E3/uL} (Normal) Range: 3.4-10.8 90-Nna-090268:04 METABOLIC PANEL, COMPREHENSIVE Comments: PATIENT WAS FASTINGPERFORMED BY: LabCo[facility] of UnionIziryw6849 [facility] [id number] (55736) ALT (SGPT) 20 [iU]/L (Normal) Range: 0-32 [...] Glucose, Serum 74 mg/dL (Normal) Range: 65-99 49-Gdr-345306:04 LIPID PANEL (85642) Comments: PATIENT WAS FASTINGPERFORMED BY: Synosia TherapeuticsHealthSouth - Specialty Hospital of UnionNxzdez0772 [facility] [id number]; apt. 9-25-15 LDL/HDL Ratio 2.1 {ratio_units} Range: 0.0-3.2 (Normal) [...] ng/mL (Normal) Comments: PATIENT WAS FASTINGPERFORMED BY: Synosia TherapeuticsHealthSouth - Specialty Hospital of UnionCojhfl1084 [facility] [id number] 59:38 Marker Range: 0.0-8.3 Comments: Ozzie ECLIA methodology 45-Eyo-76541:38 CBC With Differential/Platelet Comments: PATIENT WAS FASTINGPERFORMED BY: [facility]6370 [facility] [id number] Information: [id number] Immature Grans (Abs) 0.0 {x10E3/uL} (Normal) Range: [...] 3.77-5.28 WBC 7.8 {x10E3/uL} (Normal) Range: 3.4-10.8 80-Ooh-09922:38 Comp. Metabolic Panel (14) Comments: PATIENT WAS FASTINGPERFORMED BY: LabCoHealth[facility] Hospital of UnionXzdjkl0878 [facility] [id number] ALT (SGPT) 13 [iU]/L (Normal) Range: 0-32 [...] % (Abnormal) Comments: PATIENT WAS FASTINGPERFORMED BY: [facility] [id number]; f/u on 02/06 38 Range: 4.8-5.6 Comments: . Increased risk for diabetes: 5.7 - 6.4 Diabetes: >6.4 Glycemic control for adults with diabetes: <7.0 :38 Lipid Panel With LDL/HDL Comments: PATIENT WAS FASTINGPERFORMED BY: [facility] [id number] Ratio LDL/HDL Ratio 3.1 {ratio_units} (Normal) Range: [...] Cholesterol, Total 207 mg/dL (Abnormal) Range: 100-199 :38 Microalb/Creat Ratio, Randm Ur Comments: PATIENT WAS FASTINGPERFORMED BY: [facility] [id number] Microalb/Creat Ratio 19.0 {mg/g_creat} Range: 0.0-30.0 (Normal) Microalbumin, Urine 23.5 ug/mL (Abnormal) Range: 0.0-17.0 Creatinine, Urine 124.0 mg/dL (Normal) Range: 15.0-278.0 05-Feb-2015 Vitamin D, 25-Hydroxy 32.7 ng/mL (Normal) Comments: PATIENT WAS FASTINGPERFORMED BY: [facility] Zmjkkl5038 [facility] [id number] 9:38 Range: 30.0-100.0 Comments: Vitamin D deficiency has been defined by the [place] of[place]icine and an Endocrine Society practice guideline as alevel of serum 25-OH vitamin D less than 20 ng/mL (1,2).The Endocrine Society went on to further define vitamin Dinsufficiency as a level between 21 and 29 ng/mL (2).1. IOM ([place] of Medicine). 2010. Dietary reference intakes for calcium and D. [place]: The National Academies Press.2. Myla MF, Javier NC, Panfilo MANN, et al. Evaluation, treatment, and prevention of vitamin D deficiency: an Endocrine Society clinical practice guideline. JCEM. 2010; 96(7):1911-30. 32-Aip-116036:49 Comprehensive Metabolic Profil Comments: STAT CREATININE FOR MRITest performed at:[facility] Qvpbjoepgf[address] [place], [place] [address] ; Darrick GAP 3 (Abnormal) Range: 5-15 [...] 7-18 GLU 82 mg/dL (Normal) Range: 70-110 91-Dgy-476044:49 Hemoglobin A1c Comments: Test performed at:[facility] [address] [place] [address] 44691 HGB A1C 5.7 % (Normal) Range: 4.2-6.3 36-Ppd-405099:49 Lipid Profile Comments: STAT CREATININE FOR MRITest performed at:[facility] [address] [place] [address] 44691 VLDL 25 mg/dL (Normal) Range: 5-40 [...] 200-240 mg/dL Borderline >240 mg/dL High Risk 85-Grl-355792:49 Vitamin D,25 Hydroxy Comments: Test performed at:[facility] Bhbaqnfuso[address] [place] [address] 44691 Vitamin D 25-OH 76.3 ng/mL (Normal) Comments: Vitamin D 25(OH) Status Range Deficiency <20 ng/mL (50nmol/L) Insuffciency 20 - 30 ng/mL (50 - 75 nmol/L) Sufficiency 30 - 100 ng/mL (75 - 250 nmol/L) Toxicity >100 ng/mL (>250 nmol/L) 8-Hud-255959:15 Culture, Urine Comments: Test performed at:[facility] [address] [place] [address] CUUR See Note (Normal) Comments: Urine CultureORGANISM 1: Mixed Gram Positive OrganismsColony Count 11,000-25,000MIX CONTAM Mixed Contaminants. Submit new specimen if indicated. 6-Ajf-354778:23 Lipid Panel (44253) Comments: PATIENT WAS FASTINGPERFORMED BY: [employer]70 [facility] [id number] LDL/HDL Ratio 2.9 {ratio_units} (Normal) Range: 0.0-3.2 Comments: LDL/HDL Ratio Men Women 1/2 Avg.Risk 1.0 1.5 Av g.Risk 3.6 3.2 2X Avg.Risk 6.2 5.0 3X Avg.Risk 8.0 6.1 LDL Cholesterol Calc 104 mg/dL (Abnormal) Range: 0-99 VLDL Cholesterol [place] 24 mg/dL (Normal) Range: 5-40 HDL Cholesterol 36 mg/dL (Abnormal) Comments: According to ATP-III Guidelines, HDL-C >59 mg/dL is considered anegative risk factor for CHD. Triglycerides 121 mg/dL (Normal) Range: 0-149 Cholesterol, Total 164 mg/dL (Normal) Range: 100-199 1-Uma-040303:23 Metabolic Panel, Comments: PATIENT WAS FASTINGPERFORMED BY: [employer] Shpepi1097 [facility] [id number] Information: [id number] Comprehensive (37752) ALT (SGPT) 24 [iU]/L (Normal) Range: 0-32 [...] Glucose, Serum 94 mg/dL (Normal) Range: 65-99 87-Nso-155246:49 CALCIFEDIOL (91962) Comments: PATIENT NOT FASTINGPERFORMED BY: [facility]6370 [facility] [id number] Vitamin D, 25-Hydroxy 18.9 ng/mL (Abnormal) Range: 30.0-100.0 Comments: Vitamin D deficiency has been defined by the [place] ofBl[facility] Hospitalcine and an Endocrine Society practice guideline as alevel of serum 25-OH vitamin D less than 20 ng/mL (1,2).The Endocrine Society went on to further define vitamin Dinsufficiency as a level between 21 and 29 ng/mL (2).1. IOM ([place] of Medicine). 2010. Dietary reference intakes for calcium and D. [place]: The National Academies Press.2. Myla MF, Javier NC, Panfilo MANN, et al. Evaluation, treatment, and prevention of vitamin D deficiency: an Endocrine Society clinical practice guideline. JCEM. 2010; 96(7):1911-30. 54-Lae-510349:52 Hemoglobin A1c Comments: Test performed at:[facility] Rotancklut[address] [place] [address] 872101 HGB A1C 6.4 % (Abnormal) Range: 4.2-6.3 15-Nxa-531990:52 Lipid Profile Comments: Test performed at:[facility] [address]fm[address] [place] [address] 376761 VLDL 35 mg/dL (Normal) Range: 5-40 LDL [...] 200-240 mg/dL Borderline >240 mg/dL High Risk 11-Dxm-632346:52 Liver Profile Comments: Test performed at:[facility] [address] [place] [address] 44691 D BILI 0.10 mg/dL (Normal) Range: 0.00-0.30 T BILI 0.50 mg/dL (Normal) Range: 0.00-4.00 ALT 43 U/L (Normal) Range: 12-78 ALK P 92 U/L (Normal) Range: 50-136 AST 18 U/L (Normal) Range: 15-37 GLOB 3.5 g/dL (Normal) Range: 2.7-4.2 ALB 4.0 g/dL (Normal) Range: 3.4-5.0 T PROT 7.5 g/dL (Normal) Range: 6.4-8.2 53-Ktk-467964:50 Serum Creatinine AND GFR Comments: Has pt arrived? YTest performed at:[facility] Guxc[address]mbfd[address] [place] [address] 44691 EST GFR - AA 86 mL/min (Normal) EST GFR 71 mL/min (Normal) CREAT,SERUM 0.9 mg/dL (Normal) Range: 0.6-1.0 30-Jta-563036:38 Hepatic Function Panel Comments: PATIENT WAS FASTINGPERFORMED BY: [facility]6370 [facility] [id number] Information: [id number] (7) ALT (SGPT) 36 [iU]/L (Abnormal) Range: 0-32 AST (SGOT) 23 [iU]/L (Normal) Range: 0-40 Alkaline Phosphatase, S 107 [iU]/L (Normal) Range: 39-117 Bilirubin, Direct 0.13 mg/dL (Normal) Range: 0.00-0.40 Bilirubin, Total 0.3 mg/dL (Normal) Range: 0.0-1.2 Albumin, Serum 4.7 g/dL (Normal) Range: 3.5-5.5 Protein, Total, Serum 7.3 g/dL (Normal) Range: 6.0-8.5 01-Jul-2014 Written Authorization WAR (Normal) Comments: PATIENT WAS FASTINGPERFORMED BY: [facility]6370 [facility] [id number] 13:38 Comments: Written Authorization Received.Authorization received from GEORGE OSCAR LPN [id number] by Sandrita Onofre 63-Ltp-349286:38 CALCIFEDIOL (76852) Comments: PATIENT WAS FASTINGPERFORMED BY: [facility]6370 [facility] [id number] Vitamin D, 25-Hydroxy 30.1 ng/mL (Normal) Range: 30.0-100.0 Comments: Vitamin D deficiency has been defined by the [place] ofMedicine and an Endocrine Society practice guideline as alevel of serum 25-OH vitamin D less than 20 ng/mL (1,2).The Endocrine Society went on to further define vitamin Dinsufficiency as a level between 21 and 29 ng/mL (2).1. IOM ([place] of Medicine). 2010. Dietary reference intakes for calcium and D. [place]: The National Academies Press.2. Myla MF, Javier STUART, Panfilo MANN, et al. Evaluation, treatment, and prevention of vitamin D deficiency: an Endocrine Society clinical practice guideline. JCEM. 2010; 96(7):1911-30. 23-Xyt-109115:38 LIPID PANEL (47930) Comments: PATIENT WAS FASTINGPERFORMED BY: [place] 5954470 [facility] [id number] Information: [id number] LDL/HDL Ratio 4.2 {ratio_units} (Abnormal) Range: 0.0-3.2 [...] Cholesterol, Total 224 mg/dL (Abnormal) Range: 100-199 :49 HEPATIC FUNCTION PANEL Comments: PATIENT NOT FASTINGPERFORMED BY: [place] 5954470 [facility] [id number] Information: [id number] (64097) ALT (SGPT) 193 [iU]/L (Abnormal) Range: 0-32 AST (SGOT) 43 [iU]/L (Abnormal) Range: 0-40 Alkaline Phosphatase, S 135 [iU]/L (Abnormal) Range: 39-117 Bilirubin, Direct 0.18 mg/dL (Normal) Range: 0.00-0.40 Bilirubin, Total 0.3 mg/dL (Normal) Range: 0.0-1.2 Albumin, Serum 4.1 g/dL (Normal) Range: 3.5-5.5 Protein, Total, Serum 6.7 g/dL (Normal) Range: 6.0-8.5 :49 HEPATITIS PANEL (10892) Comments: PATIENT NOT FASTINGPERFORMED BY: [place] 5954470 [facility] [id number] Hep C Virus Ab <0.1 {s/co_ratio} (Normal) Range: 0.0-0.9 Comments: Negative: < 0.8 Indeterminate: 0.8 - 0.9 Positive: > 0.9 . In order to reduce the incidence of a false positive result, the CDC recommends that all s/co ratios between 1.0 and 10.9 be confirmed by a more specific supplemental or PCR testing. [facility] HCV Ab w/Reflex to Verification test #227649. Hep B Core Ab, IgM Negative (Normal) HBsAg Screen Negative (Normal) Hep A Ab, IgM Negative (Normal) 99-Bgz-835543:49 ANTIMITOCHONDRIAL ANTIBODY Comments: PATIENT NOT FASTINGPERFORMED BY: [address] [id number] (98494) Atypical pANCA <1:20 {titer} (Normal) Comments: The [...] follow up testing ofpositive sera with both WI-3 and MPO- ANCA enzyme immunoassays. Asmany as 5% serum samp les are positive only by EIA.Ref. AM J Clin Pathol 1999;111:507-513. Cytoplasmic (C-ANCA) <1:20 {titer} (Normal) 74-Lxq-533795:49 TRANSFERRIN (77677) Comments: PATIENT NOT FASTINGPERFORMED BY: [place] 5954470 [facility] [id number] Transferrin 259 mg/dL (Normal) Range: 200-370 48-Ntu-678380:49 GGT (GAMMA GLUTAMYLTRANSFERASE) Comments: PATIENT NOT FASTINGPERFORMED BY: [address] [id number] (91402) GGT 385 [iU]/L (Abnormal) Range: 0-60 12-Mse-164448:49 FERRITIN (76129) Comments: PATIENT NOT FASTINGPERFORMED BY: [place] [address] [facility] [id number] Ferritin, Serum 447 ng/mL (Abnormal) Range: 15-150 35-Lcf-611384:49 CMV IGM ANTBDY (17831) Comments: PATIENT NOT FASTINGPERFORMED BY: [place] 5954470 [facility] [id number] Cytomegalovirus (CMV) Ab, IgM <30.0 AU/mL (Normal) Range: 0.0-29.9 Comments: Negative <30.0 Equivocal 30.0 - 34.9 Positive >34.9 A positive result is generally indicative of acute infection, reactivation or persistent IgM production. 29-Pqw-870390:49 CERULOPLASMIN (35828) Comments: PATIENT NOT FASTINGPERFORMED BY: [facility]6370 [facility] [id number] Ceruloplasmin 29.9 mg/dL (Normal) Range: 16.0-45.0 85-Bly-370629:49 ASM (ANTI SMOOTH MUSCLE Comments: PATIENT NOT FASTINGPERFORMED BY: [facility]6370 [facility] [id number] ANTIBODY) (24552) Actin (Smooth Muscle) Antibody 5 {Units} (Normal) Range: 0-19 Comments: Negative 0 - 19 Weak positive 20 - 30 Moderate to strong positive >30 . Actin Antibodies are found in 52-85% of patients with autoimmune hepatitis or chronic active hepatitis and in 22% of patients with primary biliary cirrhosis. 68-Dsg-346338:49 ANTI-LIVER/KIDNEY MICROSOMAL Comments: PATIENT NOT FASTINGPERFORMED BY: [facility]6370 [facility] [id number] ANTIBODY (83016) Thyroid Peroxidase (TPO) Ab 9 {IU/mL} (Normal) Range: 0-34 97-Doj-970098:49 LOLITA (ANTINUCLEAR ANTIBODY) Comments: PATIENT NOT FASTINGPERFORMED BY: [facility] [id number] (43015) LOLITA Direct Negative (Normal) 71-Gyy-996709:49 TSH (00143) Comments: PATIENT NOT FASTINGPERFORMED BY: Bunker ModeSamantha V[place] 9743770 [facility] [id number] TSH 1.520 {uIU/mL} (Normal) Range: 0.450-4.500 :49 T4, FREE (THYROXINE) (05155) Comments: PATIENT NOT FASTINGPERFORMED BY: [facility] Mkqpfb7442 [address] RoadDublin [place] [id number] T4,Free(Direct) 0.97 ng/dL (Normal) Range: 0.82-1.77 :49 T3, FREE (TRIDOTHYRONINE) (86251) Comments: PATIENT NOT FASTINGPERFORMED BY: [facility] Hphtsi0891 [address]aca RoadDublin [place] [id number] Triiodothyronine,Free,Serum 3.2 pg/mL (Normal) Range: 2.0-4.4 :23 Throat Culture (30379) Comments: PATIENT NOT FASTINGPERFORMED BY: [facility] Unqycr[address] [facility] HospitalDublin [place] [id number] Information: SRC:THRT [id number] Result 1 RRF (Normal) Comments: Routine respiratory edith Upper Respiratory Culture Final report (Normal) :36 Rapid Strep Test, Office (16938) Rapid Strep Test, Office Negative (Normal) :38 CALCIFEDIOL (75440) Comments: PATIENT WAS FASTINGPERFORMED BY: [facility] Yqfcss[address] [facility] HospitalDublin [place] [id number] Vitamin D, 25-Hydroxy 16.2 ng/mL (Abnormal) Range: 30.0-100.0 Comments: Vitamin D deficiency has been defined by the [place] of[place]icine and an Endocrine Society practice guideline as alevel of serum 25-OH vitamin D less than 20 ng/mL (1,2).The Endocrine Society went on to further define vitamin Dinsufficiency as a level between 21 and 29 ng/mL (2).1. IOM ([place] of Medicine). 2010. Dietary reference intakes for calcium and D. [place]: The National Academies Press.2. Myla MF, Javier NC, Panfilo MANN, et al. Evaluation, treatment, and prevention of vitamin D deficiency: an Endocrine Society clinical practice guideline. JCEM. 2010; 96(7):1911-30. :38 Lipid Panel (97011) Comments: PATIENT WAS FASTINGPERFORMED BY: [place] 5954470 [facility] [id number] Information: [id number] LDL/HDL Ratio 3.8 {ratio_units} (Abnormal) Range: 0.0-3.2 [...] FUNCTION PANEL Comments: PATIENT WAS FASTINGPERFORMED BY: [facility]6[address] [facility] [id number] (00622) ALT (SGPT) 446 [iU]/L (Abnormal) Range: 0-32 AST (SGOT) 119 [iU]/L (Abnormal) Range: 0-40 Alkaline Phosphatase, S 176 [iU]/L (Abnormal) Range: 39-117 Bilirubin, Direct 0.59 mg/dL (Abnormal) Range: 0.00-0.40 Bilirubin, Total 1.2 mg/dL (Normal) Range: 0.0-1.2 Albumin, Serum 4.2 g/dL (Normal) Range: 3.5-5.5 Protein, Total, Serum 7.0 g/dL (Normal) Range: 6.0-8.5 :24 Metabolic Panel, Comprehensive Comments: PATIENT NOT FASTINGPERFORMED BY: [facility]6[address] [facility] [id number] (77374) ALT (SGPT) 40 [iU]/L (Abnormal) Range: 0-32 [...] Glucose, Serum 108 mg/dL (Abnormal) Range: 65-99 77-Wwq-651052:24 CBC, Platelets & Auto Comments: PATIENT NOT FASTINGPERFORMED BY: [facility] UnionVxtgar0782 [facility] [id number] Information: [id number] Diff (09667) Immature Grans (Abs) 0.0 {x10E3/uL} (Normal) Range: [...] 3.77-5.28 WBC 10.1 {x10E3/uL} (Normal) Range: 3.4-10.8 82-Gpp-963348:09 URINE KENROY CULTURE-IDENTIFICATN Comments: PATIENT NOT FASTINGPERFORMED BY: [facility] Bisgfw9800 [facility] [id number] Information: [id number] (41824) Result 1 MUG (Normal) Comments: Mixed urogenital flora1,000 Colonies/mL Urine Culture,Comprehensive Final report (Normal) 64-Ckh-634694:21 Urinalysis, Office (79515) UA - LEUKOCYTE ESTERASE Trace (Normal) UA - NITRITE Negative (Normal) URINE UROBILINGN JUAN TIMED Normal mg/dL (Normal) UA - PROTEIN Negative mg/dL (Normal) UA - PH 6 (Abnormal) UA - BLOOD Negative (Normal) UA - SPECIFIC GRAVITY 1.025 (Normal) UA - KETONES Negative mg/dL (Normal) UA - BILIRUBIN Negative (Normal) UA - GLUCOSE Negative (Normal) 61-Fnz-545924:39 HEPATITIS B SURFACE ANTIBODY Comments: PATIENT NOT FASTINGPERFORMED BY: [facility]6[address] [facility] [id number] (39626) Hep B Surface Ab, Qual Non Reactive (Normal) Comments: Non Reactive: Inconsistent with immunity, less than 10 mIU/mL Reactive: Consistent with immunity, greater than 9.9 mIU/mL 38-Qyt-027109:39 HEPATITIS PANEL (92712) Comments: PATIENT NOT FASTINGPERFORMED BY: [place] 5954470 [facility] [id number] Information: [id number] Hep C Virus Ab 0.2 {s/co_ratio} (Normal) Range: 0.0-0.9 Comments: Negative: < 0.8 Indeterminate 0.8 - 0.9 Positive: > 0.9 . In order to reduce the incidence of a false positive result, the CDC recommends that all s/co ratios between 1.0 and 10.9 be confirmed by a more specific supplemental or PCR testing. [facility] offers HCV Ab w/Reflex to Verification test #163964. Hep B Core Ab, IgM Negative (Normal) HBsAg Screen Negative (Normal) Hep A Ab, IgM Negative (Normal) 98-Fbg-309386:39 YMONM-HACVLCLSCWN-FMPUY (44094) Comments: PATIENT NOT FASTINGPERFORMED BY: [place] 5954470 [facility] [id number] AFP, Serum, Tumor Marker 2.8 ng/mL (Normal) Range: 0.0-8.3 Comments: Ozzie ECLIA methodology 5-Mrb-558626:59 CBC, Platelets & Auto Diff Comments: PATIENT NOT FASTINGPERFORMED BY: [facility]6370 [facility] [id number] Information: [id number] (89622) Immature Grans (Abs) 0.0 {x10E3/uL} (Normal) Range: [...] 3.77-5.28 WBC 10.1 {x10E3/uL} (Normal) Range: 3.4-10.8 1-Xbj-456634:59 Metabolic Panel, Comprehensive Comments: PATIENT NOT FASTINGPERFORMED BY: [facility] UnionCvuopn2479 [facility] [id number] (57495) ALT (SGPT) 27 [iU]/L (Normal) Range: 0-32 [...] Glucose, Serum 125 mg/dL (Abnormal) Range: 65-99 3-Hfh-507038:08 Urinalysis, Office (97007) UA - LEUKOCYTE ESTERASE Moderate (Normal) UA - NITRITE Positive (Normal) URINE UROBILINGN JUAN TIMED Normal mg/dL (Normal) UA - PROTEIN Negative mg/dL (Normal) UA - PH 6 (Abnormal) UA - BLOOD non-hemolyzed trace (Normal) UA - SPECIFIC GRAVITY 1.020 (Normal) UA - KETONES Negative mg/dL (Normal) UA - BILIRUBIN Negative (Normal) UA - GLUCOSE Negative (Normal) 76-Njo-840828:41 Urinalysis, Office (58685) UA - BILIRUBIN Negative (Normal) UA - BLOOD Negative (Normal) UA - GLUCOSE Negative (Normal) UA - KETONES Negative mg/dL (Normal) UA - LEUKOCYTE ESTERASE Negative (Normal) UA - NITRITE Negative (Normal) UA - PH 7.0 (Normal) UA - PROTEIN Negative mg/dL (Normal) UA - SPECIFIC GRAVITY 1.020 (Normal) URINE UROBILINGN JUAN TIMED Normal mg/dL (Normal) 02-Rzi-63538:34 KENROY CULTURE-OTHER (27715) Comments: PATIENT NOT FASTINGPERFORMED BY: CHUY [facility] Syffey0104 [facility] [id number] Information: SRC: THROAT Result 1 RRF (Normal) Comments: Routine respiratory edith Upper Respiratory Culture Final report (Normal) 37-Bnq-968185:20 VIABT-PNNYMLLTENR-BBLKG (41642) Comments: PATIENT NOT FASTINGPERFORMED BY: [facility]6[address] [facility] [id number] AFP, Serum, Tumor Marker 2.6 ng/mL (Normal) Range: 0.0-8.3 Comments: Ozzie ECLIA methodology 07-Tkf-803117:20 PTT (Activated Partial Comments: PATIENT NOT FASTINGPERFORMED BY: [place] 5954470 [facility] [id number] Thromboplastin Time) (58739) aPTT 31 {sec} (Normal) Range: 24-33 Comments: This test has not been validated for monitoring unfractionated heparintherapy. aPTT-based therapeutic ranges for unfractionated heparintherapy have not been established. For general guidelines onHeparin monitoring, refer to the [facility] Directory of Services. 31-Gqu-106278:20 PT (Prothrobim Time) (08490) Comments: PATIENT NOT FASTINGPERFORMED BY: [facility]6[address] [facility] [id number] INR 1.0 (Normal) Range: 0.8-1.2 Comments: Reference interval is for non-anticoagulated patients. . Suggested INR therapeutic range for Vitamin K anta gonist therapy: Standard Dose (moderate intensity therapeutic range): 2.0 - 3.0 Higher intensity therapeutic range 2.5 - 3.5 Prothrombin Time 10.3 {sec} (Normal) Range: 9.1-12.0 86-Rcx-867359:20 CBC WITH MANUAL DIFF Comments: PATIENT NOT FASTINGPERFORMED BY: [place] 5954470 [facility] [id number] Information: [id number] (42729) Immature Grans (Abs) 0.0 {x10E3/uL} (Normal) Range: [...] 3.77-5.28 WBC 12.1 {x10E3/uL} (Abnormal) Range: 4.0-10.5 94-Uho-602582:49 GALLBLADDER Radiology Report See Note (Normal) Comments: [...] size of the right kidney. The right zbyfuplchhrcdh15.8 cm. Normal renal cortex. The right cortex measures 1.1 cm. Thereisno demonstrated renal mass or cyst. There is no right hydronephrosis. IMPRESSION:Solitary gallstone.Fatty infiltration of the liver. Signed:Jono Dumont M.D.October 11, 2012 at 2:01:18 PM [id number] Signed GP/GP If you are the referring physician and would like to consult with theradiologist who provided this interpretation, please contact Simone Espino at [phone]. If this radiologist is unavailable, youwi ll [...] destructionofthese documents. Dictated on 10/11/12 1059 by Roxanne Dumont MDscribed on 10/11/12 1405 by ITS IMPORTSign by Jono Dumont MD on 10/11/12 1406 Sign by: Jono Dumont MD 39-Nen-391609:14 C-REACTIVE PROTEIN (70856) Comments: PATIENT NOT FASTINGPERFORMED BY: [facility] UnionRdjzkg9651 [facility] [id number] C-Reactive Protein, Quant 11.5 mg/L (Abnormal) Range: 0.0-4.9 00-Iql-235372:14 SED RATE ERYTHROCYTE (05084) Comments: PATIENT NOT FASTINGPERFORMED BY: [facility] UnionJexlwg1852 [facility] [id number] Sedimentation Rate-Westergren 7 mm/h (Normal) Range: 0-32 94-Sgd-882482:14 CBC WITH MANUAL DIFF Comments: PATIENT NOT FASTINGPERFORMED BY: [facility] of UnionDbuypv9277 [facility] [id number] Information: [id number] (67455) Immature Grans (Abs) 0.0 {x10E3/uL} (Normal) Range: [...] 3.77-5.28 WBC 13.1 {x10E3/uL} (Abnormal) Range: 4.0-10.5 84-Tkf-332602:14 METABOLIC PANEL, COMPREHENSIVE Comments: PATIENT NOT FASTINGPERFORMED BY: [facility] TherapeuticsHealthSouth - [facility] Hospital of UnionSzmxdd8721 [facility] [id number] (34936) ALT (SGPT) 25 [iU]/L (Normal) Range: 0-32 [...] Glucose, Serum 100 mg/dL (Abnormal) Range: 65-99 :52 Rapid Flu (34602 x 2) Influenza A Ag pos a (Normal) 7-Vyj-447718:01 Influenza A&B Viral Comments: PATIENT NOT FASTINGPERFORMED BY: [facility]6[address] [facility] [id number] Information: SRC:NOS [id number] Culture (13400) Viral Culture,Rapid,Influenza PFLUA (Abnormal) Comments: PositiveInfluenza A detected.. 3-Xww-842758:40 LIPID PANEL (05811) Comments: PATIENT WAS FASTINGPERFORMED BY: [facility]6[address] [facility] [id number] LDL/HDL Ratio 3.0 {ratio_units} (Normal) Range: 0.0-3.2 [...] METABOLIC PANEL, Comments: PATIENT WAS FASTINGPERFORMED BY: [facility]6[address] [facility] [id number] Information: [id number] COMPREHENSIVE (31835) ALT (SGPT) 29 [iU]/L (Normal) Range: 0-32 [...] Glucose, Serum 87 mg/dL (Normal) Range: 65-99 15-Fnv-78803:35 KENROY CULTURE-OTHER (52160) Comments: PATIENT NOT FASTINGPERFORMED BY: UniServityHealthSouth [facility] of UnionWgidby7403 [facility] [id number] Information: SRC:THRT [id number] Result 1 RRF (Normal) Comments: Routine respiratory edith Upper Respiratory Culture Final report (Normal) 38-Rif-81125:21 Rapid Strep Test, Office (04351) Rapid Strep Test, Office Negative (Normal) 3-Kxg-467635:10 CBC With Differential/Platelet Comments: PATIENT WAS FASTINGPERFORMED BY: [employer]6370 [facility] [id number] Immature Grans (Abs) 0.0 {x10E3/uL} (Normal) Range: [...] 3.77-5.28 WBC 9.3 {x10E3/uL} (Normal) Range: 4.0-10.5 6-Gbx-470706:10 Comp. Metabolic Panel (14) Comments: PATIENT WAS FASTINGPERFORMED BY: [facility] Qoeilq5218 [facility] [id number] ALT (SGPT) 22 [iU]/L (Normal) Range: 0-40 [...] % (Abnormal) Comments: PATIENT WAS FASTINGPERFORMED BY: [place] 5954470 [facility] [id number] :10 Range: 4.8-5.6 Comments: . Increased risk for diabetes: 5.7 - 6.4 Diabetes: >6.4 Glycemic control for adults with diabetes: <7.0 :10 Lipid Panel With LDL/HDL Comments: PATIENT WAS FASTINGPERFORMED BY: [address] [id number] Ratio LDL/HDL Ratio 4.3 {ratio_units} (Abnormal) Range: [...] Randm Ur Comments: PATIENT WAS FASTINGPERFORMED BY: [address] [id number] Microalb/Creat Ratio 6.3 {mg/g_creat} (Normal) Range: 0.0-30.0 Creatinine, Urine 30.4 mg/dL (Normal) Range: 15.0-278.0 Microalbumin, Urine 1.9 ug/mL (Normal) Range: 0.0-17.0 :10 Microscopic Examination Comments: PATIENT WAS FASTINGPERFORMED BY: [place] 5954470 [facility] [id number] Bacteria Few (Normal) Mucus Threads Present (Normal) Epithelial Cells (non 0-10 {/hpf} Range: 0 - 10 renal) (Normal) RBC None seen {/hpf} Range: 0 - 3 (Normal) WBC 0-5 {/hpf} (Normal) Range: 0 - 5 TSH 2.190 {uIU/mL} Comments: PATIENT WAS FASTINGPERFORMED BY: [facility]6[address] [facility] [id number] :10 (Normal) Range: 0.450-4.500 :10 Urinalysis, Complete Comments: PATIENT WAS FASTINGPERFORMED BY: [facility]6[address] [facility] [id number] Microscopic Examination See below: (Normal) Microscopic Examination MICRON (Normal) Comments: Microscopic follows if indicated. Nitrite, Urine Negative (Normal) Urobilinogen,Semi-Qn 0.2 mg/dL (Normal) Range: 0.0-1.9 Bilirubin Negative (Normal) Occult Blood Negative (Normal) Ketones Negative (Normal) Glucose Negative (Normal) Protein Negative (Normal) WBC Esterase Negative (Normal) Appearance Clear (Normal) Urine-Color Yellow (Normal) pH 7.5 (Normal) Range: 5.0-7.5 Specific Iron 1.008 (Normal) Range: 1.005-1.030 :53 CHEST, PA [...] shah M.D.May 28, 2012 at 3:41:15 PM [id number] Signed GP/GP If you are the referring physician and would like to consult with theradiologist who provided this interpretation, please contact Siomne Espino at [phone]. If this radiologist is unavailable, youwill be directed to another radiologist to assist. If you are a patient with a question regarding this report, darin najeractjorge referring physician directly. Professional Interpretation Provided By: [employer], Phone , These documents contain legally protected and confidential healt hinformation intended only for the use of the individual or entity namedabove. If you are not the intended recipient, you are hereby notifiedthatany disclosure, copying, distribution, or other use of [facility] documents isstrictly prohibited. If you have received this information in error,pleasenotify the sender immediately and arrange for the return or destructionofthese documents. Dictated on 2 1103 by Shyla Dumont MDranscribed on 05/28/12 1544 by ITS IMPORTSign by [...] Marquez M.D.May 26, 2012 at 9:02:07 PM [phone] Signed AM/AM If you are the referring physician and would like to consult with theradiologist who provided this i nterpretation, please contact Joanne Marquez M.D. at . If this radiologist is unavailable, you will bedirected to another radiologist to assist. If you are a patient with a question regarding this report, pleasecontactyour referring physician directly. Professional Interpretation Provided By: [employer], Phone , These documents contain legally protected [...] destructionofthese documents. 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 Letter Indication: H/O partial nephrectomy Abdominal pain, [...] Indication: Abdominal pain, acute, generalized Planned Observations MICROALBUMIN: CREATININE RATIO (88575) AND (92322)Indication: Hypertension, benign On: :06 Request IMMUNOGLOBULIN E (IgE) (07820)Indication: Acute bronchitis On: :06 Request LIPID PANEL (96618)Indication: Mixed hyperlipidemia On: :40 Request DRYEN-EMXJBEFZVYB-ZPZZU (63844)Indication: Fatty liver On: :40 Request HGB A1C (85067)Indication: Impaired Fasting Glucose On: :40 Request METABOLIC PANEL, COMPREHENSIVE (60107)Indication: Impaired Fasting Glucose On: :40 Request CBC (AUTO) (47184)Indication: Impaired Fasting Glucose On: :49 Request Vitamin D Hydroxy (81662)Indication: Vitamin D deficiency On: :48 Request METABOLIC PANEL, COMPREHENSIVE (32499)Indication: Mixed hyperlipidemia On: :48 Request LIPOPROTEIN, BLD, BY NMR (96151)Indication: Mixed hyperlipidemia On: :48 Request AEKMI-XZKTRVUHCIQ-BBGOR (05035)Indication: Acute foot pain, right On: 70-Nhw-975153:38 Request Vitamin D Hydroxy (70147)Indication: Vitamin D deficiency On: 23-Nov-20159:50 Request JUVDA-BLEMPFLELXO-ZREAS (02922)Indication: Fatty liver On: :50 Request METABOLIC PANEL, COMPREHENSIVE (41534)Indication: Impaired Fasting Glucose On: :49 Request MICROALBUMIN: CREATININE RATIO (58863) AND (47531)Indication: Impaired Fasting Glucose On: 23-Nov-20159:49 Request HGB A1C (11069)Indication: Impaired Fasting Glucose On: :49 Request LIPID PANEL (33489)Indication: Mixed hyperlipidemia On: :49 Request LIPID PANEL (76484)Indication: Mixed hyperlipidemia On: 67-Jkb-962900:00 Request MICROALBUMIN: CREATININE RATIO (63453) AND (84687)Indication: Impaired Fasting Glucose On: 85-Row-790916:00 Request Hemoglobin Glyclated (HGB A1C) (91246)Indication: Impaired Fasting Glucose On: 46-Rzp-867805:00 Request Vitamin D Hydroxy (43965)Indication: Vitamin D deficiency On: 18-Jof-975637: Request Vitamin D Hydroxy (51743)Indication: Vitamin D deficiency On: :11 Request CBC with auto diff (79096)Indication: Hypertension, benign On: : Request METABOLIC PANEL, COMPREHENSIVE (61521)Indication: Impaired Fasting Glucose On: 53-Woj-326179:10 Request MICROALBUMIN: CREATININE RATIO (83754) AND (09179)Indication: Impaired Fasting Glucose On: : Request Hemoglobin Glyclated (HGB A1C) (38580)Indication: Impaired Fasting Glucose On: :10 Request LIPID PANEL (51965)Indication: Mixed hyperlipidemia On: : Request UFTAJ-ILBHTWGDUOJ-AKARF (83508)Indication: Fatty liver On: 08-Qzf-903510:10 Request Vitamin D Hydroxy (87601)Indication: Vitamin D deficiency On: 3-Qlo-917609:15 Request Hemoglobin Glyclated (HGB A1C) (66162)Indication: Impaired Fasting Glucose On: 1-Puj-253547:14 Request METABOLIC PANEL, COMPREHENSIVE (88967)Indication: Impaired Fasting Glucose On: 3-Adu-509888:14 Request LIPID PANEL (59537)Indication: Mixed hyperlipidemia On: 1-Pjv-518308:14 Request Lipid Panel (50488)Indication: Elevated liver enzymes On: 75-Wak-221425:47 Request HEPATIC FUNCTION PANEL (83505)Indication: Mixed hyperlipidemia On: 05-Deh-378850:08 Request CALCIFEDIOL (35469)Indication: Unspecified Diagnosis On: 53-Nue-43121:53 Request Lipid Panel (60838)Indication: Unspecified Diagnosis On: 79-Ryu-67852:53 Request Lipid Panel (18326)Indication: SCREENING FOR HYPERLIPIDEMIA (Renamed from Encounter for screening for lipoid disorders) On: 86-Qea-036349:34 Request Comments: To be drawn Fasting Mar 2014 METABOLIC PANEL, COMPREHENSIVE (14385)Indication: Left knee pain On: 53-Vgq-401589:39 Request CCP ANTIBODY (87588)Indication: Left knee pain On: :39 Request SED RATE ERYTHROCYTE (94043)Indication: Left knee pain On: :39 Request C-REACTIVE PROTEIN (71676)Indication: Left knee pain On: :39 Request TSH (85109)Indication: Left knee pain On: :39 Request RHEUMATOID FACTOR-QUANT (18343)Indication: Left knee pain On: :39 Request Rapid Strep Test, Office (46585)Indication: ACUTE PHARYNGITIS (462.) On: 59-Ylr-63550:20 Request C-REACT PROT HIGH SENS(hsCRP) (44320)Indication: Hypertension, benign On: :16 Request Sed Rate Erythrocyte (02843)Indication: Hypertension, benign On: :16 Request CBC with manual diff (71626)Indication: Hypertension, benign On: :16 Request TSH (37020)Indication: Chest pain On: :33 Request CBC WITH MANUAL DIFF (97556)Indication: Chest pain On: :33 Request MICROALBUMIN: CREATININE RATIO (10655) AND (39381)Indication: Hypertension, benign On: :47 Request URINALYSIS, W/ MICRO (92017)Indication: Hypertension, benign On: 97-Fnt-395915:47 Request Hemoglobin Glyclated (HGB A1C) (32089)Indication: Obesity, unspecified On: :47 Request LIPID PANEL (23438)Indication: Mixed hyperlipidemia On: 74-Gdx-201959:46 Request METABOLIC PANEL, COMPREHENSIVE (29693)Indication: Hypertension, benign On: 77-Rhc-013204:46 Request Planned Encounters Medical; [facility] Other Symptoms - ? change med see catalina putnam On: 27-Jul-2018 9:15 [facility] Fast DO, Marcelle A Fast DO, Marcelle A Medical; [facility] Wellness Exam (Doctor) - On: 20-Aug-2018 13:30 [facility] Fast DO, Marcelle A Fast DO, Marcelle A Planned Procedures ELECTROCARDIOGRAM, COMPLETE (ECG) On: 26-Jul-2018 Intent (24307)By: Catalina Putnam Comments: Normal Sinus Rhythm-HR 67 ORTHOSTATIC BLOOD PRESSURE On: 26-Jul-2018 Intent ASSESSMENT (88681)By: Catalina Putnam Comments: Layin/68 HR 60Sittin/70 GF72Wvbplfid: 84/66 HR 90 Flu Vaccine (Quadrivalent) 69187Yo: On: 30-Apr-2018 Intent Fast DO, Marcelle A Fast DO, Marcelle A Comments: Lot #[id number]-8/30/19Site-L dltd, IMDose prefilled syringegiven by: Marta OAKESVIS reviewed and ABN signed MAGNETIC RESONANCE IMAGING OF RIGHT On: 07-Mar-2018 Intent CALF WITHOUT THEN WITH CONTRAST (20241)By: Sara Henry Doppler Ultrasound OtherBy: Fast DO, [...] A ELECTROCARDIOGRAM, COMPLETE (ECG) On: 20-Jun-2017 Intent (65331)By: Fast DO, Marcelle A Fast DO, Marcelle A SCREENING DIGITAL TOMOSYNTHESIS OF On: 20-Jun-2017 Intent BREAST (35366)By: Fast DO, Marcelle A Fast DO, Marcelle A Flu Vaccine (Quadrivalent) 74911Rj: On: 20-Jun-2017 Intent Fast DO, Marcelle A Fast DO, Marcelle A Comments: lot: [id number]: 02/05/18ite/route: L blayne, IMamt: 0.5mlVIS and ABN signed when applicableCHAMP Ruiz Doppler Ultrasound OtherBy: Fast DO, On: 28-Apr-2017 [...] Comments: Lot:[id number]:01/05Dose:1mlRoute:IMSite:l armGiven By:BRIAN signed Aerosol Treatment (63008)By: Fast On: 23-Sep-2016 Intent DO, Marcelle A Fast DO, Marcelle A Comments: with albuterol Ultrasound - ThyroidBy: Fast DO, On: 29-Aug-2016 Intent Marcelle A Fast DO, Marcelle A Radiology - Shoulder - LeftBy: Fast On: 16-May-2016 Intent DO, Marcelle A Fast DO, Marcelle A Comments: with ac joint please DEXA SCAN AXIAL SKELETON (01161)By: On: 16-May-2016 Intent Fast DO, Marcelle A Fast DO, Marcelle A MAMMOGRAM, SCREENING, BOTH BREAST On: 16-May-2016 Intent (53626)By: Fast DO, Marcelle A Fast DO, Marcelle A ELECTROCARDIOGRAM, COMPLETE (ECG) On: 16-May-2016 Intent (65694)By: Fast DO, Marcelle A Fast DO, Comments: ekg showed normal sinus rhythym, normal axis, no acute st/t wave changes slight prolong qt Marcelle A Flu Vaccine (Quadrivalent) 04577Pc: On: 16-May-2016 Intent Fast DO, Marcelle A Fast DO, Marcelle A Comments: Lot #:[id number] date:02/17/17mount given:0.5mlRoute: IMSite given: left deltoidGiven by: [...] DO, Marcelle A Ultrasound - ThyroidBy: Felix BACH On: 27-May-2015 Intent Vivian Mosqueda Radiology - ChestBy: Felix BACH Vivian On: 18-May-2015 Intent E MAMMOGRAM, SCREENING, BOTH BREAST On: 15-May-2015 Intent (73921)By: Marcelle Daley DO, DO, Marcelle A Flu Vaccine (Quadrivalent) 96315Ej: On: 15-May-2015 Intent Marcelle Daley DO, DO Marcelle A Comments: Lot:[id number]:01/03Dose:0.5mLRoute:IMSite:L DltdGiven By:AZEB Kennedy signed ADMINISTRATION OF INFLUENZA VIRUS On: 15-May-2015 Intent VACCINE (G0008)By: Marcelle Daley DO, DO, Debra A EKG (74354)By: Marcelle Daley DO On: 06-Feb-2015 Intent Marcelle Daley DO A Comments: ekg showed normal sinus rhythym, normal axis, no acute st/t wave changes lvh no change Aerosol Treatment ([id number])By: Christy On: 15-Jan-2015 Intent Jing MATHIS Comments: more a/e - still exp noise on left side only Radiology - Chest- PA and LatBy: On: 15-Jan-2015 Intent Jing Harrison DO Flu Vaccine (Quadrivalent) 15205Hb: On: 20-Jun-2014 Intent Vivian Washington CNP ADMINISTRATION OF INFLUENZA VIRUS On: 20-Jun-2014 Intent VACCINE ([id number])By: Vivian Washington CNP Ultrasound - ThyroidBy: Christy MATHIS On: 19-Jun-2014 Intent Jing EsophagramBy: Jing Harrison DO On: 19-Jun-2014 Intent Comments: with [address] - Abdomen & PelvisBy: Dayne BARRON, On: 26-Nov-2013 Intent George Comments: KIDNEY-L CT - PelvisBy: Vivian Washington CNP On: 26-Nov-2013 Intent Comments: Attention Left kidney hypodensity L POle, previous L partial nephrectomy Ultrasound - RenalBy: Felix BACH, On: 22-Nov-2013 Intent Vivian Mosqueda Eprescribed prescriptions ([id number])By: On: 16-Jul-2013 Intent Vivian Washington CNP IMMUNIZ ADMNIN, 1 VAC, SNGL/COMBO On: 03-Jul-2013 Intent ([id number])By: Maty Taveras LPN Comments: Lot #[id number]-[id number] dltd, IMDose prefilled syringegiven by:SIMONE Luque and NATE signed FLU VAC, SPLIT, >3 YEARS, INTRAMUSC On: 03-Jul-2013 Intent ([id number])By: Maty Taveras LPN Toradol Injection, 30 mg ([id number])By: On: 31-May-2013 Intent Felix BACH Vivian Mosqueda Radiology - Left KneeBy: Felix BACH, On: 31-May-2013 Intent Vivian Mosqueda Eprescribed prescriptions ([id number])By: On: 06-Mar-2013 Intent Sara Henry EKG ([id number])By: Fast DO, Marcelle A On: 15-Oct-2012 Intent Fast DO, Marcelle A Comments: ekg showed normal sinus rhythym, normal axis, no acute st/t wave changes nsivcd no change Spirometry ([id number])By: Fast DO, On: 15-Oct-2012 Intent Marcelle A Fast DO, Marcelle A Comments: good effort and curve normal Radiology - Chest- PA and LatBy: On: 15-Oct-2012 Intent Fast DO, Marcelle A Fast DO, Marcelle A Ultrasound - GallbladderBy: Fast DO, On: 09-Oct-2012 Intent Marcelle A Fast DO, Marcelle A Eprescribed prescriptions ([id number])By: On: 09-Oct-2012 Intent Melania Salcedo Aerosol Treatment ([id number])By: Ciesa On: 21-Sep-2012 Intent Vivain BACH Eprescribed prescriptions ([id number])By: On: 20-Jul-2012 Intent Melania Salcedo SPECIMEN HNDLNG/TRNSPRT, OFFC > LAB On: 11-Jul-2012 Intent ([id number])By: George Oscar LPN FLU VAC, SPLIT, >3 YEARS, INTRAMUSC On: 18-May-2012 Intent ([id number])By: Melania Salcedo Comments: Lot:[id number]:prefilledRoute:IMSite:L DltdGiven By:BRIAN signed CT - Abdomen & PelvisBy: Fast DO, On: 18-May-2012 Intent Marcelle A Fast DO, Marcelle A Echo CompleteBy: Fast DO, Marcelle A On: 18-May-2012 Intent Fast DO, Marcelle A Spirometry ([id number])By: Fast DO, On: 18-May-2012 Intent Marcelle A Fast DO, Marcelle A Comments: good effort and curve normal Eprescribed prescriptions ([id number])By: On: 18-May-2012 Intent Fast DO, Marcelle A Fast DO, Marcelle A EKG ([id number])By: Fast DO, Marcelle A On: 18-May-2012 Intent Fast DO, Marcelle A Comments: sinus with deep r waves left axis no acute st t cahnges Radiology - Chest- PA and LatBy: On: 18-May-2012 Intent Fast DO, Marcelle A Fast DO, Marcelle A TD Injection , IM ([id number])By: On: 18-May-2012 Intent Melania Salcedo Comments: received in 2002 IMMUNIZ ADMNIN, 1 VAC, SNGL/COMBO On: 18-May-2012 Intent ([id number])By: Melania Salcedo Planned Medications INJECTION, KETOROLAC TROMETHAMINE, PER 15 MG Ordered: 31-May-2013 Pending Vivian Washington CNP Vitamin B-12 1000 MCG/ML Injection Solution Ordered: 09-Dec-2016 Pending Fast DO, Marcelle A Fast DO, Marcelle A Instructions Name Dates Details Current nonsmoker : How to access health [...] : Patient Instructions Indication: [facility]aired [facility] : How to access health information online Indication: [facility] Wellness Physical [facility] Wellness Physical : How to access health information online - Detail Indication: [facility] Wellness Physical [facility] Wellness Physical : Patient Instructions Indication: [facility] Wellness Physical Acute foot pain, right : [...] Indication: Hypertension, benign Encounters Office Visit On: 26-Jul-2018 11:52 Encounter Reason: Dizziness - Note for Dizziness: Pts symptoms started about 3 weeks ago but yesterday noticed symptoms have gotten worse-felt like she was going to faint-stopped activity, did deep breathing exercises End: 26-Jul-2018 14:36 and it passed. Dizziness with movement. Was at [employer] working out and thought would stop and [...] BP med/ Will be seeing neurologist in [place] tomorrow), has decreased energy level (comes and [...] Problem - Note for Foot problem: saw [facility] for foot pain- and got stero id [...] is sleeping poorly (just got back from [place], time zone). Patient has been compliant with [...] the cleanse and has been going to [employer] with a personal train End: 16-Oct-2017 10:58 [...] get back on tract- she is seeing Brittany Hicks- she wants to eat healthy but [...] and rin ging- just flu discussed using [employer] when flying 2 hours priorEncounter Diagnosis: BMI [...] new varicose vein- walking more- [facility]: Current nonsmoker, BMI 39.0- 39.9,adult, Right [...] chronic medical issues: is working out with management trainer once a week- and trying to get [...] identified problems below and URI. Note for Araceli sanchez up acute care visit: Pt is using [...] taking anythingEncounter Diagnosis: Acute foot pain, right, Mboley's neuroma, right, Fatty liver [facility] [...] medication. Was keeping track of BP at [facility] but the c End: 20-Sep-2015 17:39 uff [...] head- she said had thyroi us- di aston see Anderson del toro about enlarged lymph node- he thought maybe fatty didnt scan- alot of stress at home thinks wh feeling bad- not having as much left lower rib pain- supposed to have ct of abd she is getting appt with urology t [employer] tthis done se we talked they can [...] with oncologist- which [facility] feel [facility]- has had abd pain for 4 weeks [...] do from here. Has seen Oncologist in [place], Dr. Jan Healy which he has referred her to [facility] which she is waiting to get in. margins were not clear and was renal cell carcino theresa- darrick wanted to do watchful waiting- but went for second opinion in [place]-- got referred to Dr Iglesia Gibbons- she [...] for new patient female physical: [facility] - last at Dr [...] pain (786.59), Gerd (530.81), Abdominal Pain,General (789.07) [facility] Internal Medicine Payers Medical [facility] TEMITOPE VALDOVINOS; a guarantor
--- OUTSIDE RECORDS SUMMARY | 2018-11-11 07:40 | XMS RPT_ITS | Continuity of Care Document ---
:1965 Author Organization [facility] Address [address] [place] [address] Phone Care Team Providers Name Role Phone [...] quadrant (R10.11, 789.01) Status: Active Abdominal pain, lower (R10.30, 789.09) [...] Active BMI 38.0-38.9,adult (Z68.38, V85.38) Status: Active Bronchitis, acute (J20.9, 466.0) Status: Active Candidiasis (B37.9, 112.9) Status: Active Chronic nonintractable headache, unspecified headache type (R51, 784.0) Comments: keep working on gettingbp down- Status: Active Constipation (K59.00, 564.00) Comments: alternating with diarrhea add probiotic Status: Active Cough (R05, 786.2) Status: Active Current nonsmoker (Z78.9, V49.89) Status: Active Deliveries ([facility]) Comments: 3. Status: Active Diverticulitis (K57.92, 562.11) Status: Active Diverticulosis of colon (K57.30, 562.10) Comments: eat more fiber Status: Active Dizziness (R42, 780.4) Status: Active Drug side effects (T88.7XXA, 995.20) Comments: think the dreaming seems associated with gabapentin so will try to lower dose Status: Active Dysuria (R30.0, 788.1) Status: Active Elevated liver enzymes (R74.8, 790.5) Comments: known fatty liver Status: Active Encounter for hepatitis C virus screening test for high risk patient (Z11.59, V73.89) Status: Active Encounter for screening mammogram for breast cancer (Renamed from Encounter for screening mammogram for malignant neoplasm of breast) (Z12.31, V76.12) Comments: after may 6 Status: Active Encounter for screening mammogram for [...] Active Fatty liver (K76.0, 571.8) Status: Active Flank pain (R10.9, 789.09) Status: Active Gallstone (574.20) Status: Active Gastro-esophageal reflux disease without esophagitis (K21.9, 530.81) Comments: chronic stable-continue present regimen Status: Active H/O partial nephrectomy (V15.29) Comments: left 2012 per [facility], non cancer per [facility] per [place] Status: Active Hair loss (L65.9, 704.00) Status: [...] no acute st/t wave changes Status: Active [facility] exam Status: Active [facility] Physical Status: Active [...] inoculation against influenza) (Z23, V04.81) Status: Active Nephrolithiasis (N20.0, 592.0) Status: Active Nonsmoker (Z78.9, V49.89) Status: Active Nonsmoker (Z78.9, V49.89) Status: Active Obesity, unspecified (E66.9, 278.00) Status: Active Otitis media, serous, acute, without rupture, left (H65.02, 381.01) Status: Active Pain of left side of body (R52, 780.96) Comments: slight tenderness llq Status: Active Postmenopausal (Renamed from Postmenopausal status) (Z78.0, V49.81) Comments: without estrogen Status: Active Postmenopausal (Renamed from Postmenopausal status) (Z78.0, V49.81) Status: Active Pregnancies () Comments: 3. 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 Status: Active Renal cyst (N28.1, 753.10) Comments: small cyst lower pole 1.4cm stable, from 11-30-2013, will send to [facility] partial Left nephrectomy for renal cell ca per [place] but path reviewed by [facility] said it [...] Status: Active Vitamin B12 deficiency (E53.8, 266.2) Status: Active Vitamin D deficiency (E55.9, 268.9) Status: Active Wheezing (R06.2, 786.07) Status: Active Medications Name Dates Details ALIGN, 4MG (Oral Capsule) 1 Capsule take 2 hours after one of the antibiotic dose for 0 days Quantity: 30 {Capsule} Refills: 0 Ordered:15-May-2015 Melania Salcedo Start : 21-Apr-2015 Active Allergy Shots 1 injection weekly Active Comments:Dr. Herman RIVAS-HC, 25MG (Rectal Suppository) 1 Suppository every 8 hours for 0 days Quantity: 1 {Packet(s)} Refills: 1 Ordered:23-Nov-2015 DO, Marcelle AFrikki DO, Marcelle A Start : 23-Nov-2015 Active CeleBREX 100 MG Oral Capsule 1 (one) Capsule Capsule daily prn for 90 days Quantity: 90 {Capsule} Refills: 1 Ordered:09-Apr-2018 Sara Henry Start : 09-Apr-2018 Active Gabapentin 100 MG Oral Capsule 1 (one) Capsule Capsule tid for 0 days Quantity: 90 {Capsule} Refills: 2 Ordered:20-Jul-2018 DO, Marcelle AFast DO, Marcelle A Start : 20-Jul-2018 Active Losartan Potassium 25 MG Oral Tablet 1 (one) Tablet qd for 90 days Quantity: 90 {Tablet} Refills: 3 Ordered:27-Jul-2018 Marcelle AFast DO, Marcelle A Start : 27-Jul-2018 Active Losartan Potassium 25 MG Oral Tablet 1 (one) Tablet qd for 0 days Quantity: 30 {Tablet} Refills: 0 Ordered:27-Jul-2018 Marcelle AFast DO, Marcelle A Start : 27-Jul-2018 Active Nasacort Allergy 24HR 55 MCG/ACT Nasal Aerosol 1 spray each nostril daily (55 MCG/ACT) Active Nystatin 237180 UNIT/GM External Powder 1 (one) Powder qd for 0 days Quantity: 1 {Bottle} Refills: 1 Ordered:30-Apr-2018 Marcelle AFast DO, Marcelle A Start : 30-Apr-2018 Active ProAir HFA 108 (90 Base) MCG/ACT Inhalation Aerosol Solution 2 (two) Aerosol Soln puffs q 6 hours prn for 0 days Quantity: 1 {Inhaler} Refills: 1 Ordered:21-Jul-2017 DO Marcelle AFast DO, Marcelle A Start : 21-Jul-2017 Active Rosuvastatin Calcium 10 MG Oral Tablet 1/2 Tablet qeve for 0 days Quantity: 30 {Tablet} Refills: 3 Ordered:07-May-2018 DO, Marcelle AFast DO, Marcelle A Start : 07-May-2018 Active Rosuvastatin Calcium 10 MG Oral Tablet 1/2 Tablet qeve for 0 days Quantity: 90 {Tablet} Refills: 3 Ordered:07-May-2018 Marcelle AFrikki , Marcelle A Start : 07-May-2018 Active Vitamin D3 2000 UNIT Oral Tablet 2 (two) Tablet Tablet qd for 0 days Quantity: 60 {Tablet} Refills: 3 Ordered:23-Dec-2016 Melania Salcedo Start : 06-Dec-2016 Active Augmentin 875-125 MG Oral Tablet 1 Tablet bid for 10 days Quantity: 20 {Tablet} Refills: 0 Ordered:08-Aug-2018 Marcelle Daley DOrikki , Marcelle A Start : 08-Aug-2018 End : 18-Aug-2018 Inactive BIAXIN XL PAC, 500MG (Oral Tablet [...] for 30 days Refills: 0 Ordered:20-Jul-2012 Andrew MATHIS Marcelle HUGHESrikki , Marcelle A Start : 20-Jul-2012 End : 19-Aug-2012 Inactive Contrave 8-90 MG Oral Tablet Extended Release 12 Hour 4 Tablet qd for 0 days Quantity: 120 {Tablet} Refills: 1 Ordered:16-Oct-2017 Sara Henry Start : 20-Jun-2017 End : 16-Oct-2017 Inactive Doxycycline Hyclate 100 MG Oral Capsule 1 (one) Capsule bid for 0 days Quantity: 20 {Capsule} Refills: 0 Ordered:16-Oct-2017 Marcelle Daley DO, DO, Debra A Start : 21-Jul-2017 End : 16-Oct-2017 Inactive Estrogen-Methultestos 1 tab qd Inactive Flomax 0.4 MG Oral Capsule 1 (one) Capsule qhs for 0 days Quantity: 14 {Capsule} Refills: 0 Ordered:20-Aug-2018 Marcelle Daley DO, DO, Debra A Start : 10-Aug-2018 End : 20-Aug-2018 Inactive KETOCONAZOLE, 2% (External Shampoo) apply to [...] days Quantity: 30 {Tablet} Refills: 0 Ordered:18-Jan-2017 Fast DO, Marcelle Keysha MATHIS, Marcelle A Start : 07-Dec-2016 End : 06-Jan-2017 Inactive VITAMIN B12, 100MCG (Oral Tablet) 1 daily (100 MCG) Inactive Atorvastatin Calcium 10 MG Oral Tablet 1 (one) Tablet qd in renzo for 90 days Quantity: 90 {Tablet} Refills: 3 Ordered:16-Oct-2017 DO, Marcelle AFrikki MATHIS, Marcelle A Start : 16-Oct-2017 End : 16-Oct-2017 Discontinued AZELASTINE HCL, 0.05% (Ophthalmic Solution) 1 (one) Solution Solution bid for 0 days Quantity: 1 {Bottle} Refills: 0 Ordered:21-Apr-2015 Laura Benito LPN Start : 06-Dec-2013 End : 21-Apr-2015 Discontinued Ergocalciferol 23885 UNIT Oral Capsule 1 (one) Capsule Capsule q week for 0 days Quantity: 12 {Capsule} Refills: 2 Ordered:08-Mar-2017 Melania Salcedo Start : 04-Nov-2014 End : 08-Mar-2017 Discontinued Ergocalciferol 71318 UNIT Oral Capsule 1 (one) Capsule Capsule [...] Quantity: 90 {Tablet} Refills: 1 Ordered:21-Apr-2015 Slarb BEATRICE Laura Start : 09-Jan-2014 End : 21-Apr-2015 [...] days Quantity: 180 {Capsule_ER} Refills: 3 Ordered:21-Apr-2015 Scott Benito LPNa Start : 07-Sep-2012 End : 21-Apr-2015 Discontinued [...] days Quantity: 1 {Package} Refills: 0 Ordered:21-Apr-2015 Scott Benito LPNa Start : 15-Jan-2015 End : 21-Apr-2015 Discontinued [...] (R10.84, 789.07) Status: Inactive as of 09-Oct-2012 Abdominal pain, left lower quadrant (R10.32, 789.04) Status: Inactive as of 20-Aug-2018 Allergic rhinitis (J30.9, 477.9) Status: Inactive as [...] (Z68.39, V85.39) Status: Inactive as of 16-Oct-2017 BMI 39.0-39.9,adult (Z68.39, V85.39) Status: Inactive as of 08-Aug-2018 Bronchitis (J40, 490) Status: Resolved as of [...] (M25.562, 719.46) Status: Inactive as of 16-Oct-2017 Rib pain on left side (R07.81, 786.50) Status: Resolved as of 20-Aug-2018 Right foot pain (M79.671, 729.5) Comments: already [...] Status: Resolved as of 06-Feb-2015 Vaccine for giynyxwrdz-yddycyz-yrayexqtj with poliomyelitis (Z23, V06.3) Status: Inactive as of 20-Jul-2012 Wheezing (Renamed from Asthmatic breathing) (R06.2, 786.07) Status: Resolved as of 06-Feb-2015 Procedures Procedure Dates Details Cholecystectomy Completed Comments: cebul Colonoscopy Completed Comments: Esau -- 11.26.13 Hysterectomy; Total Completed Comments: 2007- no cancer - heavy periods thyroid biopsy 2016-neg Completed Tonsillectomy Completed tonsillectomy/tympanosty Completed Date Value Details 10-Aug-2018 Abdomen/Pelvis without Cont Result: Comments: See Note; NOTES: [facility] Imaging Services [address] [place] [address] Abdomen/Pelvis without Cont MR#: [id number] Acct: [id number] Name: AMY VALDOVINOS Rep #: [id number] : 1965 F 53 From: Frank Petty MD PCP: Marcelle Daley DO Status: REG CLI Study: Abdomen/Pelvis without Cont Date of Exam: 08/10/18 Exam# [id number] Ordering Dr: Marcelle Daley DO STUDY: CT ABDOMEN AND PELVIS WITHOUT CONTRAST REASON FOR EXAM: Female, 53 years old. Flank pain, left partial nephrectomy, hysterectomy, oophorectomy, cholecystectomy RADIATION DOSAGE (If Supplied By Facili ty): CTDIvol = ( 12.08 ) mGy, DLP = ( 615.71 ) mGycm TECHNIQUE: Transaxial images were obtained from the dome of the diaphragm to the symphysis pubis without oral contrast, and without intravenous cont rast. Sagittal and coronal images were reconstructed. Individualized dose optimization techniques were used for this CT. COMPARISON: CT abdomen and pelvis 02/19/2018 FINDINGS: Body wall soft tissues: No acute process. Osseous structures: No acute process. Inferior chest: No acute process. Hepatobiliary: Normal. Pancreas: No acute process. Spleen: Normal. Adr enal glands: Normal. Urogenital: There is a tiny focus of cortical scar at the posterior margin of the mid polar left kidney. The kidneys are otherwise normal. There is very slight ectasia of the left renal collecting system, slight induration along the bradford of the proximal to mid left ureter. There is a tiny calculus within the distal 3rd of the left ureter measuring approximately 3 mm. Series 2 im age 126. Right renal collecting system and ureter normal. Uterus and ovaries absent. No adnexal mass or cyst or cul-de-sac free fluid. Pelvic floor and sidewalls and retroperitoneum: No mass or adenopa thy. Vasculature: No acute process. Stomach: No acute process. Small bowel and mesentery: No acute process. Large bowel: Normal appendix. Unremarkable large bowel and rectum. Free fluid or free air : None. CT/Abdomen/Pelvis without Cont IMPRESSION: Acute passage of 3 mm calculus, within the distal 3rd of the left ureter, minimal hydronephros is. No retained calculi in the kidneys. Electronically Signed: Frank Petty MD at 17:39 EST Tel , Service support , CC: Marcelle Daley DO Postal Supervisor: Signed 28-Mar-2018 NCS and/or EMG Patient Result: Comments: See Note; NOTES: [facility] Pulmonary Services/Neurology [address] [place] [address] MR#: [id number] Acct: [id number] Name: AMY VALDOVINOS Rep #: [id number] : 0 1965 52 From: Adebayo Canchola MD Referring Dr: Blayne Welsh DPM Status: REG CLI Ordering Dr: Date: Location: [facility] Sex: F C NCS and/or EMG Patient [...] Date Dictated: 03/28/18 1021 Date Transcribed: 03/28/18 102 Postal Supervisor: NF Signed 10-Mar-2018 Lower Ext No Joint W/WO Cont Result: Comments: See Note; NOTES: [facility] Imaging Services [address] [place] [address] Lower Ext No Joint W/WO Cont MR#: [id number] Acct: [id number] Name: AMY VALDOVINOS Rep #: [id number] : 1965 F 52 From: Ge Moffett MD PCP: Marcelle Daley DO Status: REG CLI Study: Lower Ext No Joint W/WO Cont Date of Exam: 03/10/18 Exam# [id number] Ordering Dr: Marcelle Daley DO STUD Y: [...] Service support , CC: Marcelle Daley DO Postal Supervisor: Signed 06-Mar-2018 Venous Duplex Lower Extremity Result: Comments: See Note; NOTES: [facility] Cardiovascular Services [address] [place] [address] Venous Duplex US, Unilateral 03/06/18 1435 MR#: [id number] Acct: [id number] Name: AMY CHOI Rep #: [id number] : 1965 52 From: Jared Hines MD Attending Dr: Marcelle Daley DO Status: REG CLI Ordering Dr: Marcelle Daley DO Date: 03/06/18 Location: [facility] Sex: F C Admitted: [place] son For Study: LEG SWELLING RIGHT LEFT [...] Dictated: 03/06/18 1435 Date Transcribed: 03/06/18 1623 Postal Supervisor: Signed 19-Feb-2018 Abdomen/Pelvis WITH Contrast Result: Comments: See Note; NOTES: [facility] Imaging Services [address] [place] [address] Abdomen/Pelvis WITH Contrast MR#: [id number] Acct: [id number] Name: AMY VALDOVINOS Rep #: [id number] : 1965 F 52 From: Jono Dumont MD PCP: Marcelle Daley DO Status: REG CLI Study: Abdomen/Pelvis WITH Contrast Date of Exam: 02/19/18 Exam# [id number] Ordering Dr: Marcelle Daley TUDY: CT ABDOMEN AND PELVIS WITH CONTRAST [...] Jono Dumont MD at 10:35 EDT Tel [phone], Service support , CC: Marcelle Daley DO Postal Supervisor: Signed 17-Oct-2017 Thyroid Result: Comments: See Note; NOTES: [facility] Imaging Services [address] [place] [address] Thyroid MR#: [id number] Acct: [id number] Name: AMY VALDOVINOS Rep #: [id number] : [birth year] F 52 From: Shine Sawyer MD PCP: Marcelle Daley DO Status: REG CLI Study: Thyroid Date of Exam: 10/17/17 Exam# [id number] Ordering Dr: Marcelle Daley DO STUDY: THYROID [...] Service support , CC: Marcelle Daley DO Postal Supervisor: Signed 01-Aug-2017 SCREENING MAMM (CAD), BILAT Result: Comments: See Note; NOTES: [facility] Imaging Services [address] [place] [address] SCREENING MAMM (CAD), BILAT MR#: [id number] Acct: [id number] Name: AMY VALDOVINOS Rep #: [id number] : 1965 F 52 From: Jono Dumont MD PCP: Marcelle Daley DO Status: REG CLI Study: SCREENING MAMM (CAD), BILAT Date of Exam: 08/01/17 Exam# [id number] Ordering Dr: Marcelle Daley DO [facility] MOGRAPHY - BILATERAL SCREENING REASON FOR EXAM: [...] delay biopsy of a clinically suspicious abnormality. [id number] Electronically Signed: Alma Dumont MD at 15:11 EST Tel [phone], Service support , CC: Marcelle Daley DO Postal Supervisor: Signed 01-May-2017 Venous Duplex Lower Extremity Result: Comments: See Note; NOTES: [facility] Cardiovascular Services [address] [place] [address] Venous Duplex US, Unilateral 04/28/17 1357 MR#: [id number] Acct: [id number] Name: AMY CHOI Rep #: [id number] : 1965 51 From: Jared Hines MD [...] Referring Physician: Marcelle Daley Performed By: Sonia RDCS, Sita MURILLO and Student 0 05/01/17 0854 Date Jared Hines MD CC: Marcelle Daley DO Date Dictated: 04/28/17 1357 Date Transcribed: 05/01/17 0855 Postal Supervisor: Signed 28-Apr-2017 Foot min 3 Views Result: Comments: See Note; NOTES: [facility] Imaging Services [address] [place] [address] Foot min 3 Views MR#: [id number] Acct: [id number] Name: AMY VALDOVINOS Rep #: [id number] D OB: 1965 F 51 From: Amarjit Britton DO PCP: Fast DO,Marcelle Status: REG CLI Study: Foot min 3 Views Date of Exam: 04/28/17 Exam# [id number] Ordering Dr: Marcelle Daley DO STUDY: X-RAY [...] Amarjit Britton DO at 20:42 EDT Tel [phone], Service support , CC: Marcelle Daley DO Postal Supervisor: Signed 28-Apr-2017 Knee 4 or More Views Result: Comments: See Note; NOTES: [facility] Imaging Services [address] [place] [address] Knee 4 or More Views MR#: [id number] Acct: [id number] Name: AMY VALDOVINOS Rep #: [id number] : 1965 F 51 From: Amarjit Britton DO PCP: Marcelle Daley DO Status: REG CLI Study: Knee 4 or More Views Date of Exam: 04/28/17 Exam# [id number] Ordering Dr: Marcelle Daley DO STUDY: X-RAY [...] Amarjit Britton DO at 20:31 EDT Tel [phone], Service support , CC: Marcelle Daley DO Postal Supervisor: Signed 23-Mar-2017 Liver Result: Comments: See Note; NOTES: [facility] Imaging Services [address] [place], [place] [address] Liver MR#: [id number] Acct: [id number] Name: AMY VALDOVINOS Rep #: [id number] : [birth year] F 51 From: Jono Dumont MD PCP: Marcelle Daley DO Status: REG CLI Study: Liver Date of Exam: 03/23/17 Exam# [id number] Ordering Dr: Marcelle Daley DO STUDY: ABDOMINAL [...] Jono Dumont MD at 8:50 EDT Tel [phone], Service support , CC: Marcelle Daley DO Postal Supervisor: Signed 31-Aug-2016 Thyroid Result: Comments: See Note; NOTES: [facility] Imaging Services [address] [place] [address] Verdana 4d Thyroid MR#: [id number] Acct: [id number] Name: AMY VALDOVINOS Rep #: [id number] : 1965 F 51 From: Amarjit Britton DO PCP: Marcelle Daley DO Status: REG CLI Study: Thyroid Date of Exam: 08/31/16 Exam# [id number] Ordering Dr: Marcelle Daley DO STUDY: THYROID [...] Amarjit Britton DO at 23:35 EST Tel [phone], Service support [phone], CC: Marcelle Daley DO Postal Supervisor: Signed 09-Jun-2016 Bilat Scrn Digital AND CAD Result: Comments: See Note; NOTES: [facility] Imaging Services [address] [place] [address] Verdana 4d Bilat Scrn Digital AND CAD MR#: [id number] Acct: [id number] Name: AMY VALDOVINOS Rep #: [id number] : 1965 F 51 From: Jono Dumont MD PCP: Marcelle Daley DO Status: REG CLI Study: Bilat Scrn Digital AND CAD Date of Exam: 06/09/16 Exam# [id number] Ordering Dr: Tl Daley DO MAMMOGRAPHY - [...] delay biopsy of a clinically suspicious abnormality. [id number] Electronically Signed: Jono Dumont MD at 15:05 EDT Tel [phone], Servi ce support [phone], CC: Marcelle Daley DO Postal Supervisor: Signed 09-Jun-2016 Dexa Bone Density Study (HP) Result: Comments: See Note; NOTES: [facility] Imaging Services [address] [place] [address] Verdana 4d Dexa Bone Density Study (HP) MR#: [id number] Acct: [id number] Name: AMY VALDOVINOS Rep #: [id number] : 1965 F 51 From: Jono Dumont MD PCP: Marcelle Daley DO Status: REG CLI Study: Dexa Bone Density Study (HP) Date of Exam: 06/09/16 Exam# [id number] Ordering Dr: Marcelle Daley DO STUDY: DUAL [...] Jono Dumont MD at 8:21 EDT Tel [phone], Service support [phone], CC: Marcelle Daley DO Postal Supervisor: Signed 17-May-2016 Shoulder min 2 Views Result: Comments: See Note; NOTES: [facility] Imaging Services [address] [place] [address] Verdana 4d Shoulder min 2 Views MR#: [id number] Acct: [id number] Name: AMY VALDOVINOS p #: [id number] : 1965 F 50 From: Jono Dumont MD PCP: Marcelle Daley DO Status: REG CLI Study: Shoulder min 2 Views Date of Exam: 05/17/16 Exam# [id number] Ordering Dr: Marcelle Daley Y: X-RAY - LEFT SHOULDER REASON FOR [...] Dumont MD 06/05/27 at 12:52 EDT Tel [phone], Service support [phone], CC: Marcelle Daley DO Postal Supervisor: Signed 17-Mar-2016 Foot min 3 Views Result: Comments: See Note; NOTES: [facility] Imaging Services [address] [place] [address] Verdana 4d Foot min 3 Views MR#: [id number] Acct: [id number] Name: AMY VALDOVINOS Rep #: [id number] : 1965 F 50 From: Malcom Emmanuel MD PCP: Marcelle Daley DO Status: REG CLI Study: Foot min 3 Views Date of Exam: 03/17/16 Exam# [id number] Ordering Dr: Marcelle Daley DO STUDY: X-RAY [...] MD at 13:39 EDT , Service support [phone], CC: Marcelle Daley DO Postal Supervisor: Signed 10-Nov-2015 Chest without Contrast Result: Comments: See Note; NOTES: [facility] Imaging Services [address] [place] [address] Verdana 4d Chest without Contrast MR#: [id number] Acct: [id number] Name: AMY GUILLERMO Rep #: [id number] : 1965 F 50 From: Ismael Mejia DO PCP: Marcelle Daley DO Status: REG CLI Study: Chest without Contrast Date of Exam: 11/10/15 Exam# [id number] Ordering Dr: Mabel Daley ra, DO ADDENDUM by Ismael Mejia on 11/23/15 at 0952 ADDENDUM ADDENDUM: Review of the soft ti ssues of the supraclavicular regions demonstrate no evidence of lymphadenopathy or other soft tissue abnormality. Electronically Signed: Ismael Mejia DO at 9:52 EDT Tel [phone], Serv ice support [phone], 11/23/15 0952 Date cc: Marcelle Daley DO [...] Ismael Mejia DO at 21:20 EDT Tel [phone], Servic e support [phone], CC: Marcelle Daley DO Postal Supervisor: Signed 10-Nov-2015 Chest without Contrast Result: Comments: See Note; NOTES: [facility] Imaging Services [address] [place] [address] Verdana 4d Chest without Contrast MR#: [id number] Acct: [id number] Name: AMY GUILLERMO Rep #: [id number] : 1965 F 50 From: Ismael Mejia DO PCP: Marcelle Daley DO Status: REG CLI Study: Chest without Contrast Date of Exam: 11/10/15 Exam# [id number] Ordering Dr: Mabel Daley ra, DO STUDY: [...] Ismael Mejia DO at 21:20 EDT Tel [phone], Service support [phone], CC: Marcelle Daley DO Postal Supervisor: Signed 10-Nov-2015 Thyroid Result: Comments: See Note; NOTES: [facility] Imaging Services [address] [place] [address] Verdana 4d Thyroid MR#: [id number] Acct: [id number] Name: AMY VALDOVINOS Rep #: [id number] : 1965 F 50 From: Jono Dumont MD PCP: Marcelle Daley DO Status: REG CLI Study: Thyroid Date of Exam: 11/10/15 Exam# [id number] Ordering Dr: Marcelle Daley DO STUDY: THYROI [...] Jono swann MD at 10:10 EDT Tel [phone], Service support [phone], CC: Marcelle Daley DO Postal Supervisor: Signed 08-Sep-2015 EKG ([id number]) Comments: ekg showed normal sinus rhythym, left axis, no acute st/t wave changes lv strain Result: [MEASUREMENTS ANALYSIS] Date of Test: 09/08/2015 12:10:48; Heart Rate: 55; DC Interval: 164; QRS: 114; QT Interval: 462; Corrected QT Interval (QTc): 454; P Wave [place]: 34; QRS Wave [place]: -29; T Wave Axi s: -16; Blood Pressure: 148/98 [ECG DIAGNOSTIC STATEMENTS] Date of Test: 09/08/2015 12:10:48; Summary: Sinus Bradycardia -Left axis. Voltage criteria for LVH (S(V1)+R(V6) exceeds 3.50 mV). -Nonspeci fic ST depression -Seen with left ventricular hypertrophy (strain) or digitalis effect. ABNORMAL 26-May-2015 Bilat Scrn Digital AND CAD Result: Comments: See Note; NOTES: [facility] Imaging Services [address] [place] [address] Breast Imaging Report MR#: [id number] Acct: [id number] Name: AMY VALDOVINOS Rep #: [id number] : 1965 F 50 From: Jono Dumont MD PCP: Marcelle Daley DO Status: REG CLI Study: Bilat Scrn Digital AND CAD Date of Exam: 05/26/15 Exam# [id number] Ordering Dr: Marcelle Daley DO MAMMOGRAPHY - [...] Jono Dumont MD at 15:40 EDT Tel [phone], Service support [phone], CC: Marcelle Daley DO Postal Supervisor: Signed 18-May-2015 Chest PA and Lateral Result: Comments: See Note; NOTES: [facility] Imaging Services [address] [place] [address] Radiology Report MR#: [id number] Acct: [id number] Name: AMY VALDOVINOS Rep #: [id number] : 1965 F 49 From: Jono Dumont MD PCP: Marcelle Daley DO Status: REG CLI Study: Chest PA and Lateral Date of Exam: 05/18/15 Exam# [id number] Ordering Dr: Vivian Washington STUDY: X-RA Y [...] Jono Dumont MD at 14:19 EDT Tel [phone], Service support [phone], RAD/Chest PA and Lateral IMPRESSION: No acute abnormality is seen. Electronically Signed: Jono Dumont MD at 14:19 EDT Tel [phone], Service support [phone], CC: Vivian Washington; Marcelle Daley DO Postal Supervisor: Signed 15-Jan-2015 Chest PA and Lateral Result: Comments: See Note; NOTES: [facility] Imaging Services [address] [place] [address] Radiology Report MR#: [id number] Acct: [id number] Name: AMY VALDOVINOS Rep #: [id number] : 1965 F 49 From: Shine Sawyer MD PCP: Marcelle Daley DO Status: REG CLI Study: Chest PA and Lateral Date of Exam: 01/15/15 Exam# [id number] Ordering Dr: Jing Harrison DO STUDY : [...] MD at 23:41 EDT , Service support [phone], RAD/Chest PA and Lateral IMPRESSION: Normal x-ray examination of the chest. Electronically Signed: Shine Sawyer MD at 23:41 E DT , Service support [phone], CC: Marcelle Daley DO; Jing Harrison DO Postal Supervisor: Signed 15-Jan-2015 Inhaler Demo (17395) Result: Comments: I instructed pt to use inhaler, then she redemonstrated the technique back to me. 15-Jan-2015 Spirometry (92658) Comments: obsrtuction present Result: 29-Oct-2014 Abdomen WITH and W/O Contrast Result: Comments: See Note; NOTES: [facility] Imaging Services [address] [place] [address] MRI Report MR#: [id number] Acct: [id number] Name: AMY VALDOVINOS Rep #: [id number] : 1965 F 49 From: Heavenly Rojas MD PCP: Marcelle Daley DO Status: REG CLI Study: Abdomen WITH and W/O Contrast Date of Exam: 10/29/14 Exam# [id number] Ordering Dr: Stanton Caal MD STUDY: M [...] at 1 1:15 EDT , Service support [phone], CC: Marcelle Daley DO; Stanton Caal MD Postal Supervisor: Signed 23-Jun-2014 Esophagus Only Result: Comments: See Note; NOTES: [facility] Services [address] [place] [address] Radiology Report MR#: [id number] Acct: [id number] Name: AMY VALDOVINOS Rep #: [id number] : 1965 F 49 From: Jono Dumont MD PCP: Status: REG CLI Study: Esophagus Only Date of Exam: 06/23/14 Exam# [id number] Ordering Dr: Jing Harrison DO STUDY: X-RAY [...] Jono Dumont MD at 9:21 EST Tel [phone], Service support , RAD/Esophagus Only IMPRESSION: Small sliding hiatal hernia with no evidence of gastroesophageal reflux. Electronically Signed: Jono Dumont MD at 9:21 EST Tel [phone], Service support [phone], CC: Jing Harrison DO Postal Supervisor: Signed 23-Jun-2014 Thyroid Result: Comments: See Note; NOTES: [facility] Imaging Services [address] [place] [address] Ultrasound Report MR#: [id number] Acct: [id number] Name: AMY VALDOVINOS Rep #: [id number] : 1965 F 49 From: Jono Dumont MD PCP: Status: REG CLI Study: Thyroid Date of Exam: 06/23/14 Exam# [id number] Ordering Dr: Jing Harrison DO STUDY: THYROID [...] of the thyroid. Correlation with a nu dufur medicine thyroid uptake and scan is recommended. Electronically Signed: Jono Dumont MD at 15:38 EST Tel [phone], Service support [phone], C C: Jing Harrison DO Postal Supervisor: Signed 30-Nov-2013 Abdomen/Pelvis WITH Contrast Result: Comments: See Note; NOTES: [facility] Imaging Services [address] [place] [address] [place] [address] CAT Scan Report MR#: [id number] Acct: [id number] Name: AMY VALDOVINOS Rep #: [id number] : 1965 F 48 From: Jesse Carrington MD PCP: Marcelle Daley DO Status: REG CLI Study: Abdomen/Pelvis WITH Contrast Date of Exam: 11/30/13 Exam# [id number] Ordering Dr: Vivian Washington STUDY: CT ABDOMEN [...] Dr. Iglesia Lee M.D.; Stanton Caal MD Postal Supervisor: Signed 26-Nov-2013 Kidney and Bladder Result: Comments: See Note; NOTES: [facility] Services [address] [place] [address] Ultrasound Report MR#: [id number] Acct: [id number] Name: AMY VALDOVINOS Rep #: [id number] : 1965 F 48 From: Jono Dumont MD PCP: Marcelle Daley DO Status: REG CLI Study: Kidney and Bladder Date of Exam: 11/26/13 Exam# [id number] Ordering Dr: Vivian Washington STUDY: RENAL ULTRASOUND [...] at 12:56 EDT Tel , Service support [phone], CC: Vivian Washington; Marcelle Daley DO Postal Supervisor: Signed 31-May-2013 Knee 4 or More Views Result: Comments: See Note; NOTES: [facility] Imaging Services [address] [place] [address] Radiology Report MR#: [id number] Acct: [id number] Name: AMY VALDOVINOS Rep #: [id number] : 1965 F 48 From: Jono Dumont MD PCP: Status: REG CLI Study: Knee 4 or More Views Date of Exam: 05/31/13 Exam# [id number] Ordering Dr: Vivian Washington STUDY: X-RAY - [...] May 31, 2013 at 1:16:23 PM EDT [phone] Electronically Signed GP/GP If you are the referring physician and would like to consult with the radiologist w ho provided this interpretation, please contact Jono Dumont M.D. at [phone]. If this radiologist is unavailable, you will be directed to another radiologist to assist. If you are a veronica ent with a question regarding this report, please contact your referring physician directly. Professional Interpretation Provided By: [employer], Phone , These docum ents contain legally [...] destruction of these documents. 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 Status: Active Smoking Status Name Dates Details Never smoker Vital Signs Date Test Result Details 78-Www-810213:18 Temperature 98.6 f Comments: Method: Temporal Pulse 63 /min Comments: Pattern: Regular Respiration Rate 16 /min Comments: Pattern: Unlabored BP Systolic 90 mm[Hg] Comments: Patient Position: Sitting; Cuff Location: Left Arm; Cuff Size: Standard BP Diastolic 68 mm[Hg] Comments: Patient Position: Sitting; Cuff Location: Left Arm; Cuff Size: Standard Weight 189.25 lb Height 66 in Body Mass Index Calculated 30.55 kg/m2 Body Surface Area Calculated 1.95 m2 :04 Temperature 98 f Comments: Method: Temporal Pulse 60 /min Comments: Pattern: Regular Respiration Rate 16 /min Comments: Pattern: Unlabored BP Systolic 115 mm[Hg] Comments: Patient Position: Sitting; Cuff Location: Left Arm; Cuff Size: Standard BP Diastolic 62 mm[Hg] Comments: Patient Position: Sitting; Cuff Location: Left Arm; Cuff Size: Standard Weight 195.5 lb Height 66 in Body Mass Index Calculated 31.55 kg/m2 Body Surface Area Calculated 1.98 m2 :10 Temperature 97.5 f Comments: Method: Temporal [...] kg/m2 Body Surface Area Calculated 2.19 m2 :16 Temperature 97.5 f Comments: Method: Temporal Pulse [...] kg/m2 Body Surface Area Calculated 2.12 m2 : Temperature 97.4 f Comments: Method: Temporal Pulse [...] kg/m2 Body Surface Area Calculated 2.13 m2 : Temperature 97.2 f Comments: Method: Temporal Pulse [...] kg/m2 Body Surface Area Calculated 2.25 m2 58-Lhz-466153:59 Temperature 97.9 f Comments: Method: Oral Pulse [...] kg/m2 Body Surface Area Calculated 2.25 m2 65-Was-566170:00 Temperature 98.4 f Comments: Method: Oral Pulse [...] 2.21 m2 Results Date Description Value Details 75-Mcf-285801:57 URINE KENROY CULTURE-IDENTIFICATN Comments: PATIENT NOT FASTINGPERFORMED BY: CHUY Chavira Dolores [facility] [id number] Information: SRC:UC (20427) Result 1 MUG (Normal) Comments: Mixed urogenital flora1,000 Colonies/mL Urine Culture,Comprehensive Final report (Normal) 74-Fvr-002731:05 Urinalysis, Office (32302) UA - LEUKOCYTE ESTERASE Negative (Normal) UA - NITRITE Negative (Normal) URINE UROBILINGN JUAN TIMED Normal mg/dL (Normal) UA - PROTEIN Negative mg/dL (Normal) UA - PH 6 (Abnormal) UA - BLOOD Negative (Normal) UA - SPECIFIC GRAVITY 1.010 (Normal) UA - KETONES Negative mg/dL (Normal) UA - BILIRUBIN Negative (Normal) UA - GLUCOSE Negative (Normal) 4-Yjd-328143:26 Free K+L Lt Chains,Qn,S Comments: PATIENT NOT FASTINGPERFORMED BY: [facility]iesSaint [facility] Pxgwne8607 [facility] [id number]; appt 08/20 [place]/Lambda Ratio,S 1.10 (Normal) Range: 0.26-1.65 Free Lambda Lt Chains,S 10.6 mg/L (Normal) Range: 5.7-26.3 Free [place] Lt Chains,S 11.7 mg/L (Normal) Range: 3.3-19.4 Please note SPRCS (Normal) Comments: PATIENT NOT FASTINGPERFORMED BY: [facility]6370 [facility] [id number] :26 Comments: We have received your request for additional testing or testverification. You will be notified if we are unable to processyour request. Written Authorization WAR (Normal) Comments: PATIENT NOT FASTINGPERFORMED BY: [facility]6370 [facility] [id number] :26 Comments: Written Authorization Received.Authorization received from Written Request [id number] by Greta Milligan 5-Ohr-725494:26 urine immunofixation (28302) Comments: PATIENT NOT FASTINGPERFORMED BY: [facility]6370 [facility] [id number] DIANNA Interpretation:U UPEIP (Normal) Comments: No monoclonality detected. 9-Lrk-232506:26 serum immunofixation (50771) Comments: PATIENT NOT FASTINGPERFORMED BY: [facility]6370 [facility] [id number] Immunoglobulin M, Qn, Serum 42 mg/dL (Normal) Range: 26-217 Immunoglobulin A, Qn, Serum 405 mg/dL (Abnormal) Range: 87-352 Immunoglobulin G, Qn, Serum 904 mg/dL (Normal) Range: 700-1600 Immunofixation Result, Serum IFEAL (Normal) Comments: Immunofixation shows IgA monoclonal protein with lambda light chainspecificity. :39 RHEUMATOID FACTOR-QUANT Comments: send copy to Dr. Evelio Kaur [phone]; A courtesy copy of this report has been sent [phone].PATIENT NOT FASTINGPERFORMED BY: [facility]6370 [facility] [id number] (00597) RA Latex Turbid. <10.0 {IU/mL} (Normal) Range: 0.0-13.9 :39 IMMUNOFIXATION, SERUM (15060) Comments: send copy to Dr. Evelio Kaur [phone]; A courtesy copy of this report has been sent [phone].PATIENT NOT FASTINGPERFORMED BY: [facility]6370 [facility] [id number] remington Information: FX DR MEIER [phone] Immunoglobulin M, Qn, Serum 43 mg/dL (Normal) Range: 26-217 Immunoglobulin A, Qn, Serum 356 mg/dL (Abnormal) Range: 87-352 Immunoglobulin G, Qn, Serum 969 mg/dL (Normal) Range: 700-1600 Immunofixation Result, Serum IFEAL (Normal) Comments: Immunofixation shows IgA monoclonal protein with lambda light chainspecificity. :39 HIV-1 ANTIBODY (46414) Comments: send copy to Dr. Evelio Kaur [phone]; A courtesy copy of this report has been sent [phone].PATIENT NOT FASTINGPERFORMED BY: GustSpecialty Hospital at MonmouthJxjtvz4848 [facility] [id number] HIV Screen 4th Generation wRfx Non Reactive (Normal) 06-Gcn-651556:39 HEPATITIS C ANTIBODY (93807) Comments: send copy to Dr. Evelio Kaur [phone]; A courtesy copy of this report has been sent [phone].PATIENT NOT FASTINGPERFORMED BY: [facility] [employer] [id number] Hep C Virus Ab <0.1 {s/co_ratio} (Normal) Range: 0.0-0.9 Comments: Negative: < 0.8 Indeterminate: 0.8 - 0.9 Positive: > 0.9 . The CDC recommends that a positive HCV antibody result be followed up with a HCV Nucleic Acid Amplification test (459568). 09-Bov-592960:39 FOLIC ACID SERUM (72841) Comments: send copy to Dr. Evelio Kaur [phone]; A courtesy copy of this report has been sent [phone].PATIENT NOT FASTINGPERFORMED BY: [facility]6370 [facility] [id number] Folate (Folic Acid), Serum 14.3 ng/mL (Normal) Comments: A serum folate concentration of less than 3.1 ng/mL isconsidered to represent clinical deficiency. 08-Ell-504692:39 ANTIEXTARACT NUCLEAR AG 6338 Comments: send copy to Dr. Fraser [phone]; A courtesy copy of this report has been sent [phone].PATIENT NOT FASTINGPERFORMED BY: [facility]6370 [facility] [id number] (30789) Up Antibodies <0.2 {AI} (Normal) Range: 0.0-0.9 STUNNER Antibodies <0.2 {AI} (Normal) Range: 0.0-0.9 75-Zow-647404:39 LOLITA (ANTINUCLEAR ANTIBODY) Comments: send copy to Dr. Fraser - [phone]; A courtesy copy of this report has been sent [phone].PATIENT NOT FASTINGPERFORMED BY: 51wan Lylppg[address] [employer] Technologiesbl[place] [id number] (40591) LOLITA Direct Negative (Normal) :13 Vitamin B-12 (cyanocobalamin) Comments: PATIENT WAS FASTINGPERFORMED BY: [employer] [facility] Zfskgx4429 [address] [employer] Technologiesblin [place] [id number] (43002) Vitamin B12 341 pg/mL (Normal) Range: 232-1245 :13 CBC with auto diff (25446) Comments: PATIENT WAS FASTINGPERFORMED BY: [employer] LabCoClear[facility] Dbgcnb4325 [address] [employer] Technologiesin [place] [id number]; appt 07/27 Immature Grans (Abs) 0.0 {x10E3/uL} (Normal) Range: [...] 3.77-5.28 WBC 7.2 {x10E3/uL} (Normal) Range: 3.4-10.8 :13 METABOLIC PANEL, COMPREHENSIVE Comments: PATIENT WAS FASTINGPERFORMED BY: CHUY mSpot Wvzlzw0270 [facility] [id number] (45006) ALT (SGPT) 19 [iU]/L (Normal) Range: 0-32 [...] 6-24 Glucose 80 mg/dL (Normal) Range: 65-99 :13 UTYZX-HXJSENPAZDQ-NEOMO (06166) Comments: PATIENT WAS FASTINGPERFORMED BY: CHUY E-Band Communicationsblin [place] [id number] AFP, Serum, Tumor Marker 3.6 ng/mL (Normal) Range: 0.0-8.3 Comments: Ozzie ECLIA methodology 27-Bhn-510199:05 URINE KENROY CULTURE-IDENTIFICATN Comments: PATIENT NOT FASTINGPERFORMED BY: [facility]6370 [facility] [id number] Information: SRC:UC (41309) Result 1 MUG (Normal) Comments: Mixed urogenital flora1,000 Colonies/mL Urine Culture,Comprehensive Final report (Normal) 75-Zql-721400:56 Urinalysis, Office (15437) UA - LEUKOCYTE ESTERASE Trace (Normal) UA - NITRITE Negative (Normal) URINE UROBILINGN JUAN TIMED Normal mg/dL (Normal) UA - PROTEIN Trace mg/dL (Normal) UA - PH 5 (Abnormal) UA - BLOOD Negative (Normal) UA - SPECIFIC GRAVITY 1.030 (Abnormal) UA - KETONES Negative mg/dL (Normal) UA - BILIRUBIN Small (Normal) UA - GLUCOSE Negative (Normal) 01-Ecb-360302:28 CBC, PLATELETS & AUT DIFF Comments: PATIENT WAS FASTINGPERFORMED BY: [facility]6370 [facility] [id number] (95865) Immature Grans (Abs) 0.0 {x10E3/uL} (Normal) Range: [...] 3.77-5.28 WBC 6.8 {x10E3/uL} (Normal) Range: 3.4-10.8 25-Apq-141053:28 VITAMIN B-12 (CYANOCOBALAMIN) Comments: PATIENT WAS FASTINGPERFORMED BY: Piqqual RoadDublin [place] [id number] (99434) Vitamin B12 413 pg/mL (Normal) Range: 232-1245 :28 Vitamin D Hydroxy (13750) Comments: PATIENT WAS FASTINGPERFORMED BY: [employer]6370 [address] RoadDublin [place] [id number] Vitamin D, 25-Hydroxy 52.6 ng/mL (Normal) Range: 30.0-100.0 Comments: Vitamin D deficiency has been defined by the [place] of[facility] Hospitalcine and an Endocrine Society practice guideline as alevel of serum 25-OH vitamin D less than 20 ng/mL (1,2).The Endocrine Society went on to further define vitamin Dinsufficiency as a level between 21 and 29 ng/mL (2).1. IOM ([place] of Medicine). 2010. Dietary reference intakes for calcium and D. [place]: The National Academies Press.2. Myla MF, Javier NC, Panfilo MANN, et al. Evaluation, treatment, and prevention of vitamin D deficiency: an Endocrine Society clinical practice guideline. JCEM. 2010; 96(7):1911-30. 09-Ugc-294423:28 LIPID PANEL (70005) Comments: PATIENT WAS FASTINGPERFORMED BY: [facility] Qpuxso4159 Vaca RoadDublin [place] [id number] LDL/HDL Ratio 1.3 {ratio} (Normal) Range: 0.0-3.2 Comments: LDL/HDL Ratio Men Women 1/2 Avg.Risk 1.0 1.5 Av g.Risk 3.6 3.2 2X Avg.Risk 6.2 5.0 3X Avg.Risk 8.0 6.1 LDL Cholesterol Calc 51 mg/dL (Normal) Range: 0-99 VLDL Cholesterol Rem[place] 11 mg/dL (Normal) Range: 5-40 HDL Cholesterol 38 mg/dL (Abnormal) Triglycerides 55 mg/dL (Normal) Range: 0-149 Cholesterol, Total 100 mg/dL (Normal) Range: 100-199 49-Jkm-656915:38 HgA1C , Office (07249) HgA1C , Office 6.1 % (Normal) Range: 4.6 - 7.1 83-Pvr-824488:28 HGB A1C (08734) Comments: PATIENT WAS FASTINGPERFORMED BY: [employer] [facility] [id number] Hemoglobin A1c 5.6 % (Normal) Range: 4.8-5.6 Comments: . Prediabetes: 5.7 - 6.4 Diabetes: >6.4 Glycemic control for adults with diabetes: <7.0 89-Shf-608804:28 MEHJJ-PXPBWHNSKOL-CEXGN (89881) Comments: PATIENT WAS FASTINGPERFORMED BY: GustMimbres Memorial HospitalFtbppl3367 [facility] [id number] AFP, Serum, Tumor Marker 3.6 ng/mL (Normal) Range: 0.0-8.3 Comments: Ozzie ECLIA methodology 95-Gnb-950835:28 MICROALBUMIN: CREATININE RATIO Comments: PATIENT WAS FASTINGPERFORMED BY: GustSpecialty Hospital at MonmouthHeonal9599 [facility] [id number] (51293) AND (75052) Alb/Creat Ratio 4.1 {mg/g_creat} (Normal) Range: 0.0-30.0 Albumin, Urine 5.8 ug/mL (Normal) Creatinine, Urine 139.9 mg/dL (Normal) 23-Dwt-324431:28 METABOLIC PANEL, COMPREHENSIVE Comments: PATIENT WAS FASTINGPERFORMED BY: GustSpecialty Hospital at MonmouthDgdncg7975 [facility] [id number]; review at 05/07 appt (61174) ALT (SGPT) 19 [iU]/L (Normal) Range: 0-32 [...] mg/dL (Normal) Range: 65-99 23-Jan-20188:21 LIPID PANEL (09904) Comments: PATIENT WAS FASTINGPERFORMED BY: LabCoSpecialty Hospital at MonmouthSpzrrw9692 [facility] [id number] LDL/HDL Ratio 1.6 {ratio} (Normal) Range: 0.0-3.2 [...] Range: 100-199 :21 CBC W/AUTO DIFF WBC (54156) Comments: PATIENT WAS FASTINGPERFORMED BY: CHUY GustSpecialty Hospital at MonmouthSgyibm1439 [facility] [id number]; review on 01/31 Immature Grans (Abs) 0.0 [...] PANEL, COMPREHENSIVE Comments: PATIENT WAS FASTINGPERFORMED BY: GustSpecialty Hospital at MonmouthFipgna2455 [facility] [id number] (09845) ALT (SGPT) 18 [iU]/L (Normal) Range: 0-32 [...] 6-24 Glucose 98 mg/dL (Normal) Range: 65-99 16-Vgi-534754:22 TSH (65379) Comments: PATIENT NOT FASTINGPERFORMED BY: CHUY Gust Jifnnh0523 [facility] [id number] TSH 1.150 {uIU/mL} (Normal) Range: 0.450-4.500 89-Srk-490202:22 SED RATE ERYTHROCYTE (36772) Comments: PATIENT NOT FASTINGPERFORMED BY: GustSpecialty Hospital at MonmouthNdpvdy1265 [address] RoadDublin [place] [id number] Sedimentation Rate-Westergren 8 mm/h (Normal) Range: 0-40 88-Lti-203674:22 C-REACTIVE PROTEIN (38365) Comments: PATIENT NOT FASTINGPERFORMED BY: [facility] TherapiesCo Okohqz3202 Vaca RoadDublin [place] [id number] C-Reactive Protein, Quant 2.5 mg/L (Normal) Range: 0.0-4.9 13-Vwn-377810:22 LOLITA (ANTINUCLEAR ANTIBODY) Comments: PATIENT NOT FASTINGPERFORMED BY: [facility] TherapiesCoSpecialty Hospital at MonmouthExsqhg7198 Vaca RoadDublin [place] [id number] (13371) LOLITA Direct Negative (Normal) 50-Ctc-086660:22 VITAMIN B-12 (CYANOCOBALAMIN) Comments: PATIENT NOT FASTINGPERFORMED BY: GustSpecialty Hospital at MonmouthZbebdb2158 Vaca RoadDublin [place] [id number] (77090) Vitamin B12 340 pg/mL (Normal) Range: 232-1245 41-Wkr-683100:22 IRON (17701) Comments: PATIENT NOT FASTINGPERFORMED BY: [facility]6[address] RoadDublin [place] [id number] Iron, Serum 57 ug/dL (Normal) Range: 27-159 26-Osp-764366:22 FERRITIN (17542) Comments: PATIENT NOT FASTINGPERFORMED BY: [facility]6370 [address] RoadDublin [place] [id number] Ferritin, Serum 220 ng/mL (Abnormal) Range: 15-150 65-Uet-832015:27 Albumin/Creatinine Comments: PATIENT WAS FASTINGPERFORMED BY: [facility] TherapiesCoSpecialty Hospital at MonmouthKedlld6006 [address] RoadDublin [place] [id number] BY: [address] [id number] Ratio,Urine Alb/Creat Ratio 5.5 {mg/g_creat} (Normal) Range: 0.0-30.0 Albumin, Urine 9.6 ug/mL (Normal) Creatinine, Urine 176.1 mg/dL (Normal) 19-Fyk-830780:27 Vitamin D Hydroxy Comments: PATIENT WAS FASTINGPERFORMED BY: [employer] Iffmhc7841 [facility] [id number] BY: Gust[address] [id number] (49973) Vitamin D, 25-Hydroxy 44.1 ng/mL (Normal) Range: 30.0-100.0 Comments: Vitamin D deficiency has been defined by the [place] [facility] Hospitalcine and an Endocrine Society practice guideline as alevel of serum 25-OH vitamin D less than 20 ng/mL (1,2).The Endocrine Society went on to further define vitamin Dinsufficiency as a level between 21 and 29 ng/mL (2).1. IOM ([place] of Medicine). 2010. Dietary reference intakes for calcium and D. [place]: The National Academies Press.2. Myla SIMS, Javier STUART, Panfilo MANN, et al. Evaluation, treatment, and prevention of vitamin D deficiency: an Endocrine Society clinical practice guideline. JCEM. 2010; 96(7):1911-30. 29-Xrt-670342:27 HGB A1C (91272) Comments: PATIENT WAS FASTINGPERFORMED BY: [employer]70 [facility] [id number] BY: Gust[address] [id number] Hemoglobin A1c 5.7 % (Abnormal) Range: 4.8-5.6 Comments: . Pre-diabetes: 5.7 - 6.4 Diabetes: >6.4 Glycemic control for adults with diabetes: <7.0 23-Pua-883949:27 SWWZL-CJQFHPNPUSU-ERVKK (21509) Comments: PATIENT WAS FASTINGPERFORMED BY: [employer]ni Mymctg2259 [facility] [id number] BY: [employer] [id number] AFP, Serum, Tumor Marker 4.0 ng/mL (Normal) Range: 0.0-8.3 Comments: Ozzie ECLIA methodology 68-Szo-372989:27 METABOLIC PANEL, Comments: PATIENT WAS FASTINGPERFORMED BY: GustMorgan V[place] 0853270 [facility] [id number] BY: Lab[address] [id number] COMPREHENSIVE (01766) ALT (SGPT) 21 [iU]/L (Normal) Range: 0-32 [...] Glucose, Serum 84 mg/dL (Normal) Range: 65-99 47-Oqk-042155:27 CBC with auto diff Comments: PATIENT WAS FASTINGPERFORMED BY: LabCoMorgan Ville 0853270 [facility] [id number] BY: Lab[address] [id number] (62663) Immature Grans (Abs) 0.0 {x10E3/uL} (Normal) Range: [...] 3.77-5.28 WBC 7.7 {x10E3/uL} (Normal) Range: 3.4-10.8 25-Cun-130815:27 LIPID PANEL (33110) Comments: PATIENT WAS FASTINGPERFORMED BY: CB [facility] Krfdiy4890 [facility] [id number] BY: BN [facility] [address] [id number] LDL/HDL Ratio 1.5 {ratio_units} (Normal) Range: 0.0-3.2 Comments: LDL/HDL Ratio Men Women 1/2 Avg.Risk 1.0 1.5 Av g.Risk 3.6 3.2 2X Avg.Risk 6.2 5.0 3X Avg.Risk 8.0 6.1 LDL Cholesterol Calc 69 mg/dL (Normal) Range: 0-99 VLDL Cholesterol [place] 17 mg/dL (Normal) Range: 5-40 HDL Cholesterol 46 mg/dL (Normal) Triglycerides 85 mg/dL (Normal) Range: 0-149 Cholesterol, Total 132 mg/dL (Normal) Range: 100-199 57-Lgs-481270:27 IGA/IGD/IGG/IGM-EACH (85332) Comments: PATIENT WAS FASTINGPERFORMED BY: GustSpecialty Hospital at MonmouthKfxncy2124 [facility] [id number] BY: Lab[address] [id number] Immunoglobulin E, Total 18 {IU/mL} (Normal) Range: 0-100 Immunoglobulin M, Qn, Serum 43 mg/dL (Normal) Range: 26-217 Immunoglobulin A, Qn, Serum 332 mg/dL (Normal) Range: 87-352 Immunoglobulin G, Qn, Serum 848 mg/dL (Normal) Range: 700-1600 6-Mys-327801:23 METABOLIC PANEL, COMPREHENSIVE Comments: PATIENT NOT FASTINGPERFORMED BY: GustSpecialty Hospital at MonmouthEwawew9201 [facility] [id number] (07604) ALT (SGPT) 16 [iU]/L (Normal) Range: 0-32 [...] Glucose, Serum 92 mg/dL (Normal) Range: 65-99 09-Dxq-726712:10 RUBEOLA IgG (57020) Comments: PATIENT NOT FASTINGPERFORMED BY: Vital TherapiesJoseph Ville 0903370 [facility] [id number] Rubeola Ab, IgG 44.9 AU/mL (Normal) Comments: Negative <25.0 Equivocal 25.0 - 29.9 Positive >29.9 Presence of antibodies to Rubeola is presumptive evidence of immunity except when acute infection is suspected. :10 RUBELLA IgG (24284) Comments: PATIENT NOT FASTINGPERFORMED BY: Vital TherapiesMineral Area Regional Medical CenterZrmpfy9226 [facility] [id number] Rubella Antibodies, IgG 17.40 {index} (Normal) Comments: Non-immune <0.90 Equivocal 0.90 - 0.99 Immune >0.99 :10 MUMPS IgG (03067) Comments: PATIENT NOT FASTINGPERFORMED BY: [facility]ies[facility]6370 [facility] [id number] Mumps Abs, IgG >300.0 AU/mL (Normal) Comments: Negative <9.0 Equivocal 9.0 - 10.9 Positive >10.9 A positive result genera lly indicates past exposure to Mumps virus or previous vaccination. :23 HEPATITIS C ANTIBODY (17093) Comments: PATIENT NOT FASTINGPERFORMED BY: Vital TherapiesJoseph Ville 0903370 [facility] [id number] Hep C Virus Ab 0.1 {s/co_ratio} (Normal) Range: 0.0-0.9 Comments: Negative: < 0.8 Indeterminate: 0.8 - 0.9 Positive: > 0.9 . The CDC recommends that a positive HCV antibody result be followed up with a HCV Nucleic Acid Amplification test (312301). :07 AFP, Tumor Marker Comments: Is [facility] ? [facility] (refer to report for specific site)refer to report for address and phone number AFP TUMOR 2253 3.9 ng/mL (Normal) Range: 0.0-8.3 Comments: Ozzie ECLIA methodologyPerformed at: CB - [facility] [address] [id number] Director: Harjinder Houston PhD, Phone: [phone] 33-Lzj-397491:07 Comprehensive Metabolic Profil Comments: [facility] Xzlyagsfgq9327 [address] [place], [place], [id number] GAP 6 (Normal) Range: 5-15 CO2 27.0 [...] 7-18 GLU 80 mg/dL (Normal) Range: 70-110 74-Hki-026208:07 Hemoglobin A1c Comments: [facility] Wpyughvqjp2700 ADONAY Snell, [id number] HGB A1C 5.9 % (Normal) Range: 4.2-6.3 17-Qlv-863197:07 Lipid Profile Comments: [facility] Logbczhocv7850 ADONAY Snell, [id number] VLDL 18 mg/dL (Normal) Range: 5-40 LDL [...] 200-240 mg/dL Borderline >240 mg/dL High Risk 60-Nsw-689683:07 Thyroid Stim Hormone (TSH) Comments: [facility] Lyliwuhnav5872 ADONAY Snell, [id number] TSH 1.11 {uIU/mL} (Normal) Range: 0.358-3.74 71-Pxc-431164:07 Vitamin B12 401 pg/mL (Normal) Comments: [facility] Tdtweiefyj8520 ADONAY Snell, [id number] Range: 211-911 14-Bsm-837274:07 Vitamin D,25 Hydroxy Comments: [facility] Kggymbypmx7987 ADONAY Snell, [id number] Vitamin D 25-OH 37.7 ng/mL (Normal) Comments: Vitamin D 25(OH) Status Range Deficiency <20 ng/mL (50nmol/L) Insuffciency 20 - 30 ng/mL (50 - 75 nmol/L) Sufficiency 30 - 100 ng/mL (75 - 250 nmol/L) Toxicity >100 ng/mL (>250 nmol/L) :54 TSH (50247) Comments: PATIENT WAS FASTINGPERFORMED BY: [facility]iesSaint [facility] Fhobsz5839 Vaca RoadDublin [place] [id number] TSH 1.440 {uIU/mL} (Normal) Range: 0.450-4.500 :54 VITAMIN B-12 (CYANOCOBALAMIN) Comments: PATIENT WAS FASTINGPERFORMED BY: [facility] TherapiesSaint [facility] Okvwry8241 [address] [facility] HospitalDublin [place] [id number] (74404) Vitamin B12 273 pg/mL (Normal) Range: 211-946 :47 Vitamin D Hydroxy Comments: PATIENT WAS FASTINGPERFORMED BY: Gust[address] [id number] BY: [facility] TherapiesSaint [facility] Qbdhbn8156 [address] [facility] HospitalDublin [place] [id number] (50452) Vitamin D, 25-Hydroxy 29.6 ng/mL (Abnormal) Range: 30.0-100.0 Comments: Vitamin D deficiency has been defined by the [place] ofAd[facility] Hospitalcine and an Endocrine Society practice guideline as alevel of serum 25-OH vitamin D less than 20 ng/mL (1,2).The Endocrine Society went on to further define vitamin Dinsufficiency as a level between 21 and 29 ng/mL (2).1. IOM ([place] of Medicine). 2010. Dietary reference intakes for calcium and D. [place]: The National Academies Press.2. Myla MF, Javier STUART, Panfilo MANN, et al. Evaluation, treatment, and prevention of vitamin D deficiency: an Endocrine Society clinical practice guideline. JCEM. 2010; 96(7):1911-30. :47 METABOLIC PANEL, Comments: PATIENT WAS FASTINGPERFORMED BY: Gust[address] [id number] BY: [facility] TherapiesVa Medical Center6370 [facility] Hospitalbloh [place] [id number] COMPREHENSIVE (06419) ALT (SGPT) 21 [iU]/L (Normal) Range: 0-32 [...] Glucose, Serum 87 mg/dL (Normal) Range: 65-99 4-Axl-778134:47 LIPOPROTEIN, BLD, BY NMR Comments: PATIENT WAS FASTINGPERFORMED BY: BN [facility] [address] [id number] BY: CB [facility] Wlvual0711 [facility] [id number] Information: [id number] (62141) LP-IR Score 69 (Abnormal) Comments: INSULIN RESISTANCE MARKER <--Insulin Sensitive Insulin Resistant--> Percentile in Reference PopulationInsulin Resistance ScoreLP-IR Score Low 25th 50th 75th High <27 27 45 63 >63LP-IR Score is inaccurate if patient is non-fasting. .The LP-IR score is a laboratory developed i [facility] that has beenassociated with insulin resistance and [...] 1600 - 2000 Very High > 2000 2-Fej-636833:47 MICROALBUMIN: CREATININE Comments: PATIENT WAS FASTINGPERFORMED BY: Gust[address] [id number] BY: GustMorgan Ville 0853270 [facility] [id number] RATIO (45503) AND (54147) Microalb/Creat Ratio 10.3 {mg/g_creat} (Normal) Range: 0.0-30.0 Microalbumin, Urine 16.3 ug/mL (Normal) Creatinine, Urine 157.7 mg/dL (Normal) :47 HGB A1C (01237) Comments: PATIENT WAS FASTINGPERFORMED BY: Gust[address] [id number] BY: GustMorgan Ville 0853270 [facility] [id number] Hemoglobin A1c 6.1 % (Abnormal) Range: 4.8-5.6 Comments: . Pre-diabetes: 5.7 - 6.4 Diabetes: >6.4 Glycemic control for adults with diabetes: <7.0 :4 ASPIRATION (SLIDES ONLY) See Note (Normal) Comments: [facility] Coazliyvin32[address] [place], [address] 5 Comments: Patient: AMY VALDOVINOS : 1965 (51/F) Acct Num: [id number] Phys: Devorah DÍAZ,Richar Unit Num: [id number] Loc: LAB[facility] Specimen: [id number] Received: 10/07/16 - 1206 Spec Type: ASPIRATION TISSUES TISSUES: COMMENT The specimen is paucicellular and contains rare benign follicular cells and focal chronic inflammatory cells. Clinical correlation is suggested. CYTOLOGY GROSS Received are eight smears labeled with the patient's name and designated per therequisition as FNA left thyroid. Submitted for staining. 10/07/16 TC:5 CPT: 10494 CYTOLOGY STUDY Slides are reviewed. DIAGNOSIS CYTOLOGY Fine needle aspiration, left thyroid nodule (smears): Negative, consistent with colloid nodule. AM:cecil 10/10/16 HEADER OPERATION: Ult rasound-guided fine needle aspiration, left thyroid PRE-OP DIAGNOSIS: Multinodular goiter E04.2 TISSUE SUBMITTED: Fine needle aspiration, left thyroid (8 slides) Signed Enio Madhuri 10/10/16 <signature on file> 3-Jio-705474:56 JVPCR-UCSGUDLXKUM-FHUCK (46961) Comments: PATIENT WAS FASTINGPERFORMED BY: [employer] [address] [id number] BY: [employer]6370 [address]aca RoadDublin [place] [id number] AFP, Serum, Tumor Marker 3.2 ng/mL (Normal) Range: 0.0-8.3 Comments: Ozzie ECLIA methodology :56 VITAMIN B-12 (CYANOCOBALAMIN) Comments: PATIENT WAS FASTINGPERFORMED BY: Semanticator[address] [id number] BY: 51wan Pbpjuf8822 [address] [facility] HospitalDublin [place] [id number] (18388) Vitamin B12 302 pg/mL (Normal) Range: 211-946 :56 Vitamin D Hydroxy Comments: PATIENT WAS FASTINGPERFORMED BY: Semanticator[address] [id number] BY: LabShwrümSpecialty Hospital at MonmouthQshgbn2275 [address] [facility] Centerblin [place] [id number] (42788) Vitamin D, 25-Hydroxy 25.1 ng/mL (Abnormal) Range: 30.0-100.0 Comments: Vitamin D deficiency has been defined by the [place] ofMedicine and an Endocrine Society practice guideline as alevel of serum 25-OH vitamin D less than 20 ng/mL (1,2).The Endocrine Society went on to further define vitamin Dinsufficiency as a level between 21 and 29 ng/mL (2).1. IOM ([place] of Medicine). 2010. Dietary reference intakes for calcium and D. [place]: The National Academies Press.2. Myla MF, Javier STUART, Panfilo MANN, et al. Evaluation, treatment, and prevention of vitamin D deficiency: an Endocrine Society clinical practice guideline. JCEM. 2010; 96(7):1911-30. 4-Aor-398294:56 CBC W/AUTO DIFF WBC Comments: PATIENT WAS FASTINGPERFORMED BY: [facility] Vrjkppbvrz0823 [facility] [id number] BY: CB [facility] Rjmxqn6158 [facility] [id number] (92713) Immature Grans (Abs) 0.0 {x10E3/uL} (Normal) Range: [...] 3.77-5.28 WBC 9.9 {x10E3/uL} (Normal) Range: 3.4-10.8 7-Zwn-264689:56 METABOLIC PANEL, Comments: PATIENT WAS FASTINGPERFORMED BY: LabShwrüm[address] [id number] BY: LabShwrümMorgan Ville 0853270 [facility] [id number] COMPREHENSIVE (52920) ALT (SGPT) 18 [iU]/L (Normal) Range: 0-32 [...] Glucose, Serum 89 mg/dL (Normal) Range: 65-99 3-Zcx-062734:56 LIPOPROTEIN, BLD, BY NMR Comments: PATIENT WAS FASTINGPERFORMED BY: LabCo[address] [id number] BY: LabShwrümMorgan Ville 0853270 [facility] [id number] (16759) LP-IR Score 66 (Abnormal) Comments: INSULIN RESISTANCE MARKER <--Insulin Sensitive Insulin Resistant--> Percentile in Reference PopulationInsulin Resistance ScoreLP-IR Score Low 25th 50th 75th High <27 27 45 63 >63LP-IR Score is inaccurate if patient is non-fasting. .The LP-IR score is a laboratory developed i [facility] that has beenassociated with insulin resistance and [...] 1600 - 2000 Very High > 2000 6-Agx-005118:10 HgA1C , Office (23233) HgA1C , Office 5.8 % (Normal) Range: 4.6 - 7.1 4-Zlr-490909:10 Blood Glucose , Office (69542) Blood Glucose , Office 80 (Normal) 83-Vkr-015546:18 Magnesium (85823) Comments: PATIENT NOT FASTINGPERFORMED BY: Alum.niMimbres Memorial HospitalXhqvxu4950 [facility] [id number] Magnesium, Serum 2.3 mg/dL (Normal) Range: 1.6-2.3 :35 HUKOS-IVIAKVPPYVX-PWDYL (24651) Comments: PATIENT WAS FASTINGPERFORMED BY: [employer] Learn6370 [facility] [id number] AFP, Serum, Tumor Marker 3.0 ng/mL (Normal) Range: 0.0-8.3 Comments: Ozzie ECLIA methodology :35 CBC W/AUTO DIFF WBC Comments: PATIENT WAS FASTINGPERFORMED BY: Alum.ni Usdrmi1943 [facility] [id number] Information: [id number] (12144) Immature Grans (Abs) 0.0 {x10E3/uL} (Normal) Range: [...] 3.77-5.28 WBC 7.4 {x10E3/uL} (Normal) Range: 3.4-10.8 39-Qjj-76823:35 METABOLIC PANEL, COMPREHENSIVE Comments: PATIENT WAS FASTINGPERFORMED BY: [facility] Wpusng6760 [facility] [id number] (82661) ALT (SGPT) 14 [iU]/L (Normal) Range: 0-32 [...] Glucose, Serum 83 mg/dL (Normal) Range: 65-99 62-Eoo-517269:10 CBC W/AUTO DIFF WBC Comments: PATIENT WAS FASTINGPERFORMED BY: [facility]6370 [facility] [id number] Information: [id number] (17269) Immature Grans (Abs) 0.0 {x10E3/uL} (Normal) Range: [...] 3.77-5.28 WBC 7.1 {x10E3/uL} (Normal) Range: 3.4-10.8 72-Pdl-187127:10 METABOLIC PANEL, COMPREHENSIVE Comments: PATIENT WAS FASTINGPERFORMED BY: Gust Nenucr3473 [facility] [id number] (62580) ALT (SGPT) 14 [iU]/L (Normal) Range: 0-32 [...] Glucose, Serum 79 mg/dL (Normal) Range: 65-99 37-Xjv-056732:10 TSH (26776) Comments: PATIENT WAS FASTINGPERFORMED BY: GustMimbres Memorial HospitalJtnseg3410 [facility] [id number] TSH 0.891 {uIU/mL} (Normal) Range: 0.450-4.500 53-Qnr-028931:10 LIPID PANEL (82968) Comments: PATIENT WAS FASTINGPERFORMED BY: [facility] Wnxrcr9569 [facility] [id number] LDL/HDL Ratio 2.0 {ratio_units} Range: 0.0-3.2 (Normal) [...] ASPIRATION (SLIDES ONLY) See Note (Normal) Comments: [facility] Fyullapyro4871 [place], [address] :00 Comments: Patient: AMY VALDOVINOS : 1965 (50/F) Acct Num: [id number] Phys: Richar Fairchild MD Unit Num: [id number] Loc: LABSPEC Specimen: [id number] Received: 12/15/15 - [...] Levi 12/16/15 <signature on file> :19 TSH (76307) Comments: PATIENT NOT FASTINGPERFORMED BY: [facility] Slhqis8726 [address]aca RoadDublin [place] [id number] TSH 1.250 {uIU/mL} (Normal) Range: 0.450-4.500 :19 T4, FREE (THYROXINE) Comments: PATIENT NOT FASTINGPERFORMED BY: [facility] Zjdzhe7400 [address] [facility]bl[facility] [place] [id number] Information: [id number] (21702) T4,Free(Direct) 1.12 ng/dL (Normal) Range: 0.82-1.77 :19 T3, FREE (TRIDOTHYRONINE) (03917) Comments: PATIENT NOT FASTINGPERFORMED BY: [facility] Peahxq4403 Vaca RoadDublin [place] [id number] Triiodothyronine,Free,Serum 3.3 pg/mL (Normal) Range: 2.0-4.4 36-Wex-073407:15 SED RATE ERYTHROCYTE (00929) Comments: PATIENT NOT FASTINGPERFORMED BY: [facility] Pbywdr8415 [address]aca RoadDublin [place] [id number] Sedimentation Rate-Westergren 6 mm/h (Normal) Range: 0-40 26-Avm-992999:15 C-REACTIVE PROTEIN (00267) Comments: PATIENT NOT FASTINGPERFORMED BY: [facility] Byzkno1176 [address] [facility] HospitalDublin [place] [id number] C-Reactive Protein, Quant 3.9 mg/L (Normal) Range: 0.0-4.9 07-Tiy-479469:15 METABOLIC PANEL, COMPREHENSIVE Comments: PATIENT NOT FASTINGPERFORMED BY: [facility] Mswppe3048 [address]aca RoadDublin [place] [id number] (61069) ALT (SGPT) 35 [iU]/L (Abnormal) Range: 0-32 [...] Glucose, Serum 76 mg/dL (Normal) Range: 65-99 76-Pjn-202748:15 EBV Panel (20537) Comments: PATIENT NOT FASTINGPERFORMED BY: [facility] Bakersfieldlin6370 [facility] [id number] Interpretation: SPRCS (Normal) Comments: EBV Interpretation Chart [...] <36.0 Equivocal 36.0 - 43.9 Positive >43.9 68-Zyw-904838:15 CBC, PLATELETS & MANUAL Comments: PATIENT NOT FASTINGPERFORMED BY: LabCoSpecialty Hospital at MonmouthDtqozt5106 [facility] [id number] Information: [id number] DIFF (61682) Immature Grans (Abs) 0.0 {x10E3/uL} (Normal) Range: [...] 3.77-5.28 WBC 8.8 {x10E3/uL} (Normal) Range: 3.4-10.8 32-Fpu-933827:00 CBC with auto diff Comments: PERFORMED BY: CHUY GustSpecialty Hospital at MonmouthIasfne6422 [facility] [id number] Information: NURSE DRAW (92528) Immature Grans (Abs) 0.0 {x10E3/uL} (Normal) Range: [...] 3.77-5.28 WBC 8.6 {x10E3/uL} (Normal) Range: 3.4-10.8 28-Qhy-697749:00 METABOLIC PANEL, COMPREHENSIVE Comments: PERFORMED BY: CHUY LabCoSpecialty Hospital at MonmouthRfkzlc3920 [facility] [id number] (90148) ALT (SGPT) 19 [iU]/L (Normal) Range: 0-32 [...] Glucose, Serum 93 mg/dL (Normal) Range: 65-99 45-Ffj-871712:00 GVKIC-FEBPONHKRCH-TKJUT (56558) Comments: PERFORMED BY: [facility]Va [facility] Center6370 [facility] [id number] AFP, Serum, Tumor Marker 3.2 ng/mL (Normal) Range: 0.0-8.3 Comments: Ozzie ECLIA methodology 65-Wps-909679:28 HgA1C , Office (74313) HgA1C , Office 5.9 % (Normal) Range: 4.6 - 7.1 4-Hco-944020:22 URINE KENROY CULTURE-JUAN COL Comments: PATIENT NOT FASTINGPERFORMED BY: Gust Shzyiq4554 [facility] [id number] Information: SRC:[facility] [id number] COUNT (56779) Result 1 NG36 (Normal) Comments: No growth in 36 - 48 hours. Urine Culture,Comprehensive Final report (Normal) 9-Ime-748251:36 Urinalysis, Office (87302) UA - LEUKOCYTE ESTERASE Small (Normal) UA - NITRITE Negative (Normal) URINE UROBILINGN JUAN TIMED Normal mg/dL (Normal) UA - PROTEIN Negative mg/dL (Normal) UA - PH 6.5 (Normal) UA - BLOOD Negative (Normal) UA - SPECIFIC GRAVITY 1.005 (Normal) UA - KETONES Negative mg/dL (Normal) UA - BILIRUBIN Negative (Normal) UA - GLUCOSE Negative (Normal) 12-Rth-101272:04 CBC W/AUTO DIFF WBC Comments: PATIENT WAS FASTINGPERFORMED BY: Gust Myuryr7382 [facility] [id number] Information: [id number] (78296) Immature Grans (Abs) 0.0 {x10E3/uL} (Normal) Range: [...] 3.77-5.28 WBC 8.2 {x10E3/uL} (Normal) Range: 3.4-10.8 32-Vmm-011550:04 METABOLIC PANEL, COMPREHENSIVE Comments: PATIENT WAS FASTINGPERFORMED BY: LabCoSpecialty Hospital at MonmouthAmpzuo1810 [facility] [id number] (89160) ALT (SGPT) 20 [iU]/L (Normal) Range: 0-32 [...] Glucose, Serum 74 mg/dL (Normal) Range: 65-99 54-Ems-986857:04 LIPID PANEL (07441) Comments: PATIENT WAS FASTINGPERFORMED BY: GustSpecialty Hospital at MonmouthJytygo6581 [facility] [id number]; apt. 9-25-15 LDL/HDL Ratio 2.1 {ratio_units} Range: [...] ng/mL (Normal) Comments: PATIENT WAS FASTINGPERFORMED BY: GustSpecialty Hospital at MonmouthNdbpmc7495 [facility] [id number] 59:38 Marker Range: 0.0-8.3 Comments: Ozzie ECLIA methodology 31-Xzv-64828:38 CBC With Differential/Platelet Comments: PATIENT WAS FASTINGPERFORMED BY: German HospitalShwrümSpecialty Hospital at MonmouthFfloaz3646 [facility] [id number] Information: [id number] Immature Grans (Abs) 0.0 {x10E3/uL} (Normal) Range: [...] Panel (14) Comments: PATIENT WAS FASTINGPERFORMED BY: LabCoSpecialty Hospital at MonmouthBahqzh0784 [facility] [id number] ALT (SGPT) 13 [iU]/L (Normal) Range: 0-32 [...] % (Abnormal) Comments: PATIENT WAS FASTINGPERFORMED BY: RevolutionCreditR[facility] [id number]; f/u on 02/06 38 Range: 4.8-5.6 Comments: . Increased risk for diabetes: 5.7 - 6.4 Diabetes: >6.4 Glycemic control for adults with diabetes: <7.0 :38 Lipid Panel With LDL/HDL Comments: PATIENT WAS FASTINGPERFORMED BY: [facility]CreditR[facility] [id number] Ratio LDL/HDL Ratio 3.1 {ratio_units} (Normal) Range: [...] Randm Ur Comments: PATIENT WAS FASTINGPERFORMED BY: [employer] Simple[employer] license of [facility] [id number] Microalb/Creat Ratio 19.0 {mg/g_creat} Range: 0.0-30.0 (Normal) Microalbumin, Urine 23.5 ug/mL (Abnormal) Range: 0.0-17.0 Creatinine, Urine 124.0 mg/dL (Normal) Range: 15.0-278.0 05-Feb-2015 Vitamin D, 25-Hydroxy 32.7 ng/mL (Normal) Comments: PATIENT WAS FASTINGPERFORMED BY: LabCoSpecialty Hospital at MonmouthXkktck4486 [facility]acaSt[facility] [id number] 9:38 Range: 30.0-100.0 Comments: Vitamin D deficiency has been defined by the [place] ofMedicine and an Endocrine Society practice guideline as alevel of serum 25-OH vitamin D less than 20 ng/mL (1,2).The Endocrine Society went on to further define vitamin Dinsufficiency as a level between 21 and 29 ng/mL (2).1. IOM ([place] of Medicine). 2010. Dietary reference intakes for calcium and D. [place]: The National Academies Press.2. Myla MF, Javier NC, Panfilo MANN, et al. Evaluation, treatment, and prevention of vitamin D deficiency: an Endocrine Society clinical practice guideline. JCEM. 2010; 96(7):1911-30. 43-Spd-187055:49 Comprehensive Metabolic Profil Comments: STAT CREATININE FOR MRITest performed at:[facility] Mgxrxiqlxi5[address] [place] [address] ; Darrick GAP 3 (Abnormal) Range: 5-15 [...] 7-18 GLU 82 mg/dL (Normal) Range: 70-110 04-Lib-056088:49 Hemoglobin A1c Comments: Test performed at:[facility] Osgyakmfqi18[address] [place] [address] HGB A1C 5.7 % (Normal) Range: 4.2-6.3 87-Vre-346510:49 Lipid Profile Comments: STAT CREATININE FOR MRITest performed at:[facility] Atqjgrymvd5629 [place] [address] VLDL 25 mg/dL (Normal) Range: 5-40 [...] 200-240 mg/dL Borderline >240 mg/dL High Risk 66-Trm-751410:49 Vitamin D,25 Hydroxy Comments: Test performed at:[facility] Ehctsliwdn1377 [place] [address] Vitamin D 25-OH 76.3 ng/mL (Normal) Comments: Vitamin D 25(OH) Status Range Deficiency <20 ng/mL (50nmol/L) Insuffciency 20 - 30 ng/mL (50 - 75 nmol/L) Sufficiency 30 - 100 ng/mL (75 - 250 nmol/L) Toxicity >100 ng/mL (>250 nmol/L) 6-Lzu-804057:15 Culture, Urine Comments: Test performed at:[facility] W[address] [place] [address] CUUR See Note (Normal) Comments: Urine CultureORGANISM 1: Mixed Gram Positive OrganismsColony Count 11,000-25,000MIX CONTAM Mixed Contaminants. Submit new specimen if indicated. 0-Tnc-786891:23 Lipid Panel (08012) Comments: PATIENT WAS FASTINGPERFORMED BY: GustSpecialty Hospital at MonmouthMicxsi5192 [facility] [id number] LDL/HDL Ratio 2.9 {ratio_units} (Normal) Range: 0.0-3.2 [...] Cholesterol, Total 164 mg/dL (Normal) Range: 100-199 7-Mbd-257006:23 Metabolic Panel, Comments: PATIENT WAS FASTINGPERFORMED BY: Vital TherapiesVa Medical Center6370 [facility] [id number] Information: [id number] Comprehensive (94229) ALT (SGPT) 24 [iU]/L (Normal) Range: 0-32 [...] Glucose, Serum 94 mg/dL (Normal) Range: 65-99 47-Gbr-787846:49 CALCIFEDIOL (75064) Comments: PATIENT NOT FASTINGPERFORMED BY: LabCoSpecialty Hospital at MonmouthGxknlf3345 [facility] [id number] Vitamin D, 25-Hydroxy 18.9 ng/mL (Abnormal) Range: 30.0-100.0 Comments: Vitamin D deficiency has been defined by the [place] ofMedicine and an Endocrine Society practice guideline as alevel of serum 25-OH vitamin D less than 20 ng/mL (1,2).The Endocrine Society went on to further define vitamin Dinsufficiency as a level between 21 and 29 ng/mL (2).1. IOM ([place] of Medicine). 2010. Dietary reference intakes for calcium and D. [place]: The National Academies Press.2. Myla MF, Javier NC, Katlyn-Cem MANN, et al. Evaluation, treatment, and prevention of vitamin D deficiency: an Endocrine Society clinical practice guideline. JCEM. 2010; 96(7):1911-30. 12-Myi-058547:52 Hemoglobin A1c Comments: Test performed at:[facility] Rcbhfuunxr[address] [place], [place] 815541 HGB A1C 6.4 % (Abnormal) Range: 4.2-6.3 86-Cfp-357083:52 Lipid Profile Comments: Test performed at:[facility] Wxfoqyedlu77[address] [place] [address] VLDL 35 mg/dL (Normal) Range: 5-40 LDL [...] 200-240 mg/dL Borderline >240 mg/dL High Risk 16-Egz-912302:52 Liver Profile Comments: Test performed at:[facility] Rmsrdztura85[address] [place] [address] D BILI 0.10 mg/dL (Normal) Range: 0.00-0.30 T BILI 0.50 mg/dL (Normal) Range: 0.00-4.00 ALT 43 U/L (Normal) Range: 12-78 ALK P 92 U/L (Normal) Range: 50-136 AST 18 U/L (Normal) Range: 15-37 GLOB 3.5 g/dL (Normal) Range: 2.7-4.2 ALB 4.0 g/dL (Normal) Range: 3.4-5.0 T PROT 7.5 g/dL (Normal) Range: 6.4-8.2 20-Wfg-994023:50 Serum Creatinine AND GFR Comments: Has pt arrived? YTest performed at:[facility] Bwhjqlktto7851 [facility] [address] EST GFR - AA 86 mL/min (Normal) EST GFR 71 mL/min (Normal) CREAT,SERUM 0.9 mg/dL (Normal) Range: 0.6-1.0 89-Nvc-235545:38 Hepatic Function Panel Comments: PATIENT WAS FASTINGPERFORMED BY: [facility] Pnwbkc5526 [facility] [id number] Information: [id number] (7) ALT (SGPT) 36 [iU]/L (Abnormal) Range: 0-32 AST (SGOT) 23 [iU]/L (Normal) Range: 0-40 Alkaline Phosphatase, S 107 [iU]/L (Normal) Range: 39-117 Bilirubin, Direct 0.13 mg/dL (Normal) Range: 0.00-0.40 Bilirubin, Total 0.3 mg/dL (Normal) Range: 0.0-1.2 Albumin, Serum 4.7 g/dL (Normal) Range: 3.5-5.5 Protein, Total, Serum 7.3 g/dL (Normal) Range: 6.0-8.5 01-Jul-2014 Written Authorization WAR (Normal) Comments: PATIENT WAS FASTINGPERFORMED BY: Gust Omwude7312 [facility]in [place] [id number] 13:38 Comments: Written Authorization Received.Authorization received from GEORGE OSCAR LPN [id number] by Sandrita Onofre 12-Tav-985520:38 CALCIFEDIOL (84324) Comments: PATIENT WAS FASTINGPERFORMED BY: LabSaint [facility] Lszhjl9363 [facility] [place] [id number] Vitamin D, 25-Hydroxy 30.1 ng/mL (Normal) Range: 30.0-100.0 Comments: Vitamin D deficiency has been defined by the [place] ofMedicine and an Endocrine Society practice guideline as alevel of serum 25-OH vitamin D less than 20 ng/mL (1,2).The Endocrine Society went on to further define vitamin Dinsufficiency as a level between 21 and 29 ng/mL (2).1. IOM ([place] of Medicine). 2010. Dietary reference intakes for calcium and D. [place]: The National Academies Press.2. Myla MF, Javier NC, Panfilo MANN, et al. Evaluation, treatment, and prevention of vitamin D deficiency: an Endocrine Society clinical practice guideline. JCEM. 2010; 96(7):1911-30. 25-Lyz-183406:38 LIPID PANEL (78724) Comments: PATIENT WAS FASTINGPERFORMED BY: [facility] Aiwxso0658 [facility]in [place] [id number] Information: [id number] LDL/HDL Ratio 4.2 {ratio_units} (Abnormal) Range: 0.0-3.2 [...] FUNCTION PANEL Comments: PATIENT NOT FASTINGPERFORMED BY: Gust Trmaxh6906 [place] [facility] [id number] Information: [id number] (71646) ALT (SGPT) 193 [iU]/L (Abnormal) Range: 0-32 AST (SGOT) 43 [iU]/L (Abnormal) Range: 0-40 Alkaline Phosphatase, S 135 [iU]/L (Abnormal) Range: 39-117 Bilirubin, Direct 0.18 mg/dL (Normal) Range: 0.00-0.40 Bilirubin, Total 0.3 mg/dL (Normal) Range: 0.0-1.2 Albumin, Serum 4.1 g/dL (Normal) Range: 3.5-5.5 Protein, Total, Serum 6.7 g/dL (Normal) Range: 6.0-8.5 :49 HEPATITIS PANEL (43171) Comments: PATIENT NOT FASTINGPERFORMED BY: [facility]Special[facility] Hospital at MonmouthKwmayj3924 [facility] [id number] Hep C Virus Ab <0.1 {s/co_ratio} (Normal) Range: 0.0-0.9 Comments: Negative: < 0.8 Indeterminate: 0.8 - 0.9 Positive: > 0.9 . In order to reduce the incidence of a false positive result, the CDC recommends that all s/co ratios between 1.0 and 10.9 be confirmed by a more specific supplemental or PCR testing. [facility] Ab w/Reflex to Verification test #[id number]. Hep B Core Ab, IgM Negative (Normal) HBsAg Screen Negative (Normal) Hep A Ab, IgM Negative (Normal) 35-Qrf-834656:49 ANTIMITOCHONDRIAL ANTIBODY Comments: PATIENT NOT FASTINGPERFORMED BY: [facility]6370 [facility] [id number] (76022) Atypical pANCA <1:20 {titer} (Normal) Comments: The [...] follow up testing ofpositive sera with both DC-3 and MPO- ANCA enzyme immunoassays. Asmany as 5% serum samp les are positive only by EIA.Ref. AM J Clin Pathol 1999;111:507-513. Cytoplasmic (C-ANCA) <1:20 {titer} (Normal) 57-Yix-309493:49 TRANSFERRIN (43700) Comments: PATIENT NOT FASTINGPERFORMED BY: [facility]6370 [facility] [id number] Transferrin 259 mg/dL (Normal) Range: 200-370 67-Bim-118548:49 GGT (GAMMA GLUTAMYLTRANSFERASE) Comments: PATIENT NOT FASTINGPERFORMED BY: [facility]6370 [facility] [id number] (78842) GGT 385 [iU]/L (Abnormal) Range: 0-60 72-Vio-086731:49 FERRITIN (84040) Comments: PATIENT NOT FASTINGPERFORMED BY: [facility]6370 [facility] [id number] Ferritin, Serum 447 ng/mL (Abnormal) Range: 15-150 79-Ljx-942904:49 CMV IGM ANTBDY (50187) Comments: PATIENT NOT FASTINGPERFORMED BY: [facility]6370 [facility] [id number] Cytomegalovirus (CMV) Ab, IgM <30.0 AU/mL (Normal) Range: 0.0-29.9 Comments: Negative <30.0 Equivocal 30.0 - 34.9 Positive >34.9 A positive result is generally indicative of acute infection, reactivation or persistent IgM production. 35-Msz-782764:49 CERULOPLASMIN (00364) Comments: PATIENT NOT FASTINGPERFORMED BY: [facility]6370 [facility] [id number] Ceruloplasmin 29.9 mg/dL (Normal) Range: 16.0-45.0 :49 ASM (ANTI SMOOTH MUSCLE Comments: PATIENT NOT FASTINGPERFORMED BY: [address] [id number] ANTIBODY) (54298) Actin (Smooth Muscle) Antibody 5 {Units} (Normal) Range: 0-19 Comments: Negative 0 - 19 Weak positive 20 - 30 Moderate to strong positive >30 . Actin Antibodies are found in 52-85% of patients with autoimmune hepatitis or chronic active hepatitis and in 22% of patients with primary biliary cirrhosis. 60-Ipm-798374:49 ANTI-LIVER/KIDNEY MICROSOMAL Comments: PATIENT NOT FASTINGPERFORMED BY: [facility]6370 [facility] [id number] ANTIBODY (97122) Thyroid Peroxidase (TPO) Ab 9 {IU/mL} (Normal) Range: 0-34 04-Fqi-437107:49 LOLITA (ANTINUCLEAR ANTIBODY) Comments: PATIENT NOT FASTINGPERFORMED BY: [facility]6370 [facility] [id number] (90722) LOLITA Direct Negative (Normal) 96-Qyd-006600:49 TSH (32481) Comments: PATIENT NOT FASTINGPERFORMED BY: [facility] Rbitdf8950 [facility] [id number] TSH 1.520 {uIU/mL} (Normal) Range: 0.450-4.500 :49 T4, FREE (THYROXINE) (02947) Comments: PATIENT NOT FASTINGPERFORMED BY: [facility] Pgsdga3766 [address]aca RoadDublin [place] [id number] T4,Free(Direct) 0.97 ng/dL (Normal) Range: 0.82-1.77 :49 T3, FREE (TRIDOTHYRONINE) (43494) Comments: PATIENT NOT FASTINGPERFORMED BY: CB [facility] Pgxyen9721 Vaca RoadDublin [place] [id number] Triiodothyronine,Free,Serum 3.2 pg/mL (Normal) Range: 2.0-4.4 :23 Throat Culture (73925) Comments: PATIENT NOT FASTINGPERFORMED BY: CB [facility] Ltmcjs2985 Vaca RoadDublin [place] [id number] Information: SRC:THRT [id number] Result 1 RRF (Normal) Comments: Routine respiratory edith Upper Respiratory Culture Final report (Normal) :36 Rapid Strep Test, Office (93174) Rapid Strep Test, Office Negative (Normal) :38 CALCIFEDIOL (34986) Comments: PATIENT WAS FASTINGPERFORMED BY: CB [facility] Dljsyl9873 [address] [facility] HospitalDublin [place] [id number] Vitamin D, 25-Hydroxy 16.2 ng/mL (Abnormal) Range: 30.0-100.0 Comments: Vitamin D deficiency has been defined by the [place] of[place]icine and an Endocrine Society practice guideline as alevel of serum 25-OH vitamin D less than 20 ng/mL (1,2).The Endocrine Society went on to further define vitamin Dinsufficiency as a level between 21 and 29 ng/mL (2).1. IOM ([place] of [employer]). 2010. Dietary reference intakes for calcium and D. [place]: The National Academies Press.2. Myla MF, Javier NC, Panfilo MANN, et al. Evaluation, treatment, and prevention of vitamin D deficiency: an Endocrine Society clinical practice guideline. JCEM. 2010; 96(7):1911-30. :38 Lipid Panel (77113) Comments: PATIENT WAS FASTINGPERFORMED BY: [facility]6370 [facility] [id number] Information: [id number] LDL/HDL Ratio 3.8 {ratio_units} (Abnormal) Range: 0.0-3.2 [...] FUNCTION PANEL Comments: PATIENT WAS FASTINGPERFORMED BY: GustSpecial[facility] Hospital at MonmouthNrrdbz9220 [facility] [id number] (48948) ALT (SGPT) 446 [iU]/L (Abnormal) Range: 0-32 AST (SGOT) 119 [iU]/L (Abnormal) Range: 0-40 Alkaline Phosphatase, S 176 [iU]/L (Abnormal) Range: 39-117 Bilirubin, Direct 0.59 mg/dL (Abnormal) Range: 0.00-0.40 Bilirubin, Total 1.2 mg/dL (Normal) Range: 0.0-1.2 Albumin, Serum 4.2 g/dL (Normal) Range: 3.5-5.5 Protein, Total, Serum 7.0 g/dL (Normal) Range: 6.0-8.5 :24 Metabolic Panel, Comprehensive Comments: PATIENT NOT FASTINGPERFORMED BY: [place] 9670570 [facility] [id number] (52562) ALT (SGPT) 40 [iU]/L (Abnormal) Range: 0-32 [...] Glucose, Serum 108 mg/dL (Abnormal) Range: 65-99 31-Fki-878019:24 CBC, Platelets & Auto Comments: PATIENT NOT FASTINGPERFORMED BY: [facility] Gyoexs3723 [facility] [id number] Information: [id number] Diff (76598) Immature Grans (Abs) 0.0 {x10E3/uL} (Normal) Range: [...] 3.77-5.28 WBC 10.1 {x10E3/uL} (Normal) Range: 3.4-10.8 92-Lxi-514058:09 URINE KENROY CULTURE-IDENTIFICATN Comments: PATIENT NOT FASTINGPERFORMED BY: [employer] Simple[employer] license of [facility] [id number] Information: [id number] (73235) Result 1 MUG (Normal) Comments: Mixed urogenital flora1,000 Colonies/mL Urine Culture,Comprehensive Final report (Normal) 90-Pav-842019:21 Urinalysis, Office (51281) UA - LEUKOCYTE ESTERASE Trace (Normal) UA - NITRITE Negative (Normal) URINE UROBILINGN JUAN TIMED Normal mg/dL (Normal) UA - PROTEIN Negative mg/dL (Normal) UA - PH 6 (Abnormal) UA - BLOOD Negative (Normal) UA - SPECIFIC GRAVITY 1.025 (Normal) UA - KETONES Negative mg/dL (Normal) UA - BILIRUBIN Negative (Normal) UA - GLUCOSE Negative (Normal) 59-Kfc-200884:39 HEPATITIS B SURFACE ANTIBODY Comments: PATIENT NOT FASTINGPERFORMED BY: Alum.ni wiseri [facility] [id number] (10977) Hep B Surface Ab, Qual Non Reactive (Normal) Comments: Non Reactive: Inconsistent with immunity, less than 10 mIU/mL Reactive: Consistent with immunity, greater than 9.9 mIU/mL :39 HEPATITIS PANEL (62983) Comments: PATIENT NOT FASTINGPERFORMED BY: [place] 9670570 [facility] [id number] Information: [id number] Hep C Virus Ab 0.2 {s/co_ratio} (Normal) Range: 0.0-0.9 Comments: Negative: < 0.8 Indeterminate 0.8 - 0.9 Positive: > 0.9 . In order to reduce the incidence of a false positive result, the CDC recommends that all s/co ratios between 1.0 and 10.9 be confirmed by a more specific supplemental or PCR testing. [facility] offers HCV Ab w/Reflex to Verification test #[id number]. Hep B Core Ab, IgM Negative (Normal) HBsAg Screen Negative (Normal) Hep A Ab, IgM Negative (Normal) :39 [id number]-[id number] (44637) Comments: PATIENT NOT FASTINGPERFORMED BY: [facility]6370 [facility] [id number] AFP, Serum, Tumor Marker 2.8 ng/mL (Normal) Range: 0.0-8.3 Comments: Ozzie ECLIA methodology 8-Orr-183046:59 CBC, Platelets & Auto Diff Comments: PATIENT NOT FASTINGPERFORMED BY: [facility]6370 [facility] [id number] Information: [id number] (16977) Immature Grans (Abs) 0.0 {x10E3/uL} (Normal) Range: [...] 3.77-5.28 WBC 10.1 {x10E3/uL} (Normal) Range: 3.4-10.8 3-Xfo-780034:59 Metabolic Panel, Comprehensive Comments: PATIENT NOT FASTINGPERFORMED BY: [facility]CoSpecialty Hospital at MonmouthHolefv8039 [facility] [id number] (08635) ALT (SGPT) 27 [iU]/L (Normal) Range: 0-32 [...] Glucose, Serum 125 mg/dL (Abnormal) Range: 65-99 9-Jhm-130926:08 Urinalysis, Office (66352) UA - LEUKOCYTE ESTERASE Moderate (Normal) UA - NITRITE Positive (Normal) URINE UROBILINGN JUAN TIMED Normal mg/dL (Normal) UA - PROTEIN Negative mg/dL (Normal) UA - PH 6 (Abnormal) UA - BLOOD non-hemolyzed trace (Normal) UA - SPECIFIC GRAVITY 1.020 (Normal) UA - KETONES Negative mg/dL (Normal) UA - BILIRUBIN Negative (Normal) UA - GLUCOSE Negative (Normal) 72-Xkj-009701:41 Urinalysis, Office (89809) UA - BILIRUBIN Negative (Normal) UA - BLOOD Negative (Normal) UA - GLUCOSE Negative (Normal) UA - KETONES Negative mg/dL (Normal) UA - LEUKOCYTE ESTERASE Negative (Normal) UA - NITRITE Negative (Normal) UA - PH 7.0 (Normal) UA - PROTEIN Negative mg/dL (Normal) UA - SPECIFIC GRAVITY 1.020 (Normal) URINE UROBILINGN JUAN TIMED Normal mg/dL (Normal) 90-Hqp-61651:34 KENROY CULTURE-OTHER (26716) Comments: PATIENT NOT FASTINGPERFORMED BY: [employer] license of [facility] [id number] Information: SRC: THROAT Result 1 RRF (Normal) Comments: Routine respiratory edith Upper Respiratory Culture Final report (Normal) 51-Xdt-654666:20 ZQSCO-GVJZWLDKDRF-GZQQA (07874) Comments: PATIENT NOT FASTINGPERFORMED BY: [employer] license of [facility] [id number] AFP, Serum, Tumor Marker 2.6 ng/mL (Normal) Range: 0.0-8.3 Comments: Ozzie ECLIA methodology 69-Yvx-463337:20 PTT (Activated Partial Comments: PATIENT NOT FASTINGPERFORMED BY: [facility]6370 [facility] [id number] Thromboplastin Time) (78712) aPTT 31 {sec} (Normal) Range: 24-33 Comments: This test has not been validated for monitoring unfractionated heparintherapy. aPTT-based therapeutic ranges for unfractionated heparintherapy have not been established. For general guidelines onHeparin monitoring, refer to the [facility] Directory of Services. :20 PT (Prothrobim Time) (33986) Comments: PATIENT NOT FASTINGPERFORMED BY: [facility]6370 [facility] [id number] INR 1.0 (Normal) Range: 0.8-1.2 Comments: Reference interval is for non-anticoagulated patients. . Suggested INR therapeutic range for Vitamin K anta gonist therapy: Standard Dose (moderate intensity therapeutic range): 2.0 - 3.0 Higher intensity therapeutic range 2.5 - 3.5 Prothrombin Time 10.3 {sec} (Normal) Range: 9.1-12.0 :20 CBC WITH MANUAL DIFF Comments: PATIENT NOT FASTINGPERFORMED BY: [facility]6370 [facility] [id number] Information: [id number] (36062) Immature Grans (Abs) 0.0 {x10E3/uL} (Normal) Range: [...] 3.77-5.28 WBC 12.1 {x10E3/uL} (Abnormal) Range: 4.0-10.5 85-Wfn-526291:49 GALLBLADDER Radiology Report See Note (Normal) Comments: [...] size of the right kidney. The right nwoydydfhvjbvs12.8 cm. Normal renal cortex. The right cortex measures 1.1 cm. Thereisno demonstrated renal mass or cyst. There is no right hydronephrosis. IMPRESSION:Solitary gallstone.Fatty infiltration of the liver. Signed:Jono Dumont M.D.October 11, 2012 at 2:01:18 PM [id number] Signed GP/GP If you are the referring physician and would like to consult with theradiologist who provided this interpretation, please contact Simone Espino at [phone]. If this radiologist is unavailable, youwi ll [...] destructionofthese documents. Dictated on 10/11/12 1059 by Shyal Dumont MDranscribed on 10/11/12 1405 by ITS IMPORTSign by Jono Dumont MD on 10/11/12 1406 Sign by: Jono Dumont MD 41-Uwk-088087:14 C-REACTIVE PROTEIN (63066) Comments: PATIENT NOT FASTINGPERFORMED BY: [employer]70 [employer] license of [facility] [id number] C-Reactive Protein, Quant 11.5 mg/L (Abnormal) Range: 0.0-4.9 78-Bup-742172:14 SED RATE ERYTHROCYTE (50211) Comments: PATIENT NOT FASTINGPERFORMED BY: [employer]70 [facility] [id number] Sedimentation Rate-Westergren 7 mm/h (Normal) Range: 0-32 15-Ubo-218858:14 CBC WITH MANUAL DIFF Comments: PATIENT NOT FASTINGPERFORMED BY: CHUY [facility] Xkmiul8347 [facility] [id number] Information: [id number] (09581) Immature Grans (Abs) 0.0 {x10E3/uL} (Normal) Range: [...] 3.77-5.28 WBC 13.1 {x10E3/uL} (Abnormal) Range: 4.0-10.5 01-Ukx-934309:14 METABOLIC PANEL, COMPREHENSIVE Comments: PATIENT NOT FASTINGPERFORMED BY: [facility]CoSpecial[facility] Hospital at MonmouthVugjxy9598 [facility] [id number] (21755) ALT (SGPT) 25 [iU]/L (Normal) Range: 0-32 [...] mg/dL (Abnormal) Range: 65-99 21-Sep-20129:52 Rapid Flu (06796 x 2) Influenza A Ag pos a (Normal) 7-Hmw-116825:01 Influenza A&B Viral Comments: PATIENT NOT FASTINGPERFORMED BY: [facility]CoSpecial[facility] Hospital at MonmouthJvajiw6717 [facility] [id number] Information: SRC:NOS [id number] Culture (89623) Viral Culture,Rapid,Influenza PFLUA (Abnormal) Comments: PositiveInfluenza A detected.. 1-Ffj-878722:40 LIPID PANEL (24671) Comments: PATIENT WAS FASTINGPERFORMED BY: GustSpecialty Hospital at MonmouthSwnqnl0889 [facility] [id number] LDL/HDL Ratio 3.0 {ratio_units} (Normal) Range: 0.0-3.2 [...] METABOLIC PANEL, Comments: PATIENT WAS FASTINGPERFORMED BY: [employer] Pdnpfz3218 [facility] [id number] Information: [id number] COMPREHENSIVE (68453) ALT (SGPT) 29 [iU]/L (Normal) Range: 0-32 [...] Glucose, Serum 87 mg/dL (Normal) Range: 65-99 :35 KENROY CULTURE-OTHER (28713) Comments: PATIENT NOT FASTINGPERFORMED BY: [facility] Rxbzaj3899 [facility] [id number] Information: SRC:THRT [id number] Result 1 RRF (Normal) Comments: Routine respiratory edith Upper Respiratory Culture Final report (Normal) 12-Yen-85537:21 Rapid Strep Test, Office (19334) Rapid Strep Test, Office Negative (Normal) 3-Xks-681340:10 CBC With Differential/Platelet Comments: PATIENT WAS FASTINGPERFORMED BY: [facility] Oltnwv9102 [facility] [id number] Immature Grans (Abs) 0.0 {x10E3/uL} (Normal) Range: [...] 3.77-5.28 WBC 9.3 {x10E3/uL} (Normal) Range: 4.0-10.5 5-Mjf-232540:10 Comp. Metabolic Panel (14) Comments: PATIENT WAS FASTINGPERFORMED BY: [facility] Zfclyk5535 [facility] [id number] ALT (SGPT) 22 [iU]/L (Normal) Range: 0-40 [...] % (Abnormal) Comments: PATIENT WAS FASTINGPERFORMED BY: GustSpecialty Hospital at MonmouthPcrrxd4421 [facility] [id number] :10 Range: 4.8-5.6 Comments: . Increased risk for diabetes: 5.7 - 6.4 Diabetes: >6.4 Glycemic control for adults with diabetes: <7.0 :10 Lipid Panel With LDL/HDL Comments: PATIENT WAS FASTINGPERFORMED BY: GustSpecialty Hospital at MonmouthXiwnpz4356 [facility] [id number] Ratio LDL/HDL Ratio 4.3 {ratio_units} (Abnormal) Range: [...] Randm Ur Comments: PATIENT WAS FASTINGPERFORMED BY: GustSpecialty Hospital at MonmouthVugfsj7496 [facility] [id number] Microalb/Creat Ratio 6.3 {mg/g_creat} (Normal) Range: 0.0-30.0 Creatinine, Urine 30.4 mg/dL (Normal) Range: 15.0-278.0 Microalbumin, Urine 1.9 ug/mL (Normal) Range: 0.0-17.0 :10 Microscopic Examination Comments: PATIENT WAS FASTINGPERFORMED BY: GustSpecialty Hospital at MonmouthSmowwm9947 [facility] [id number] Bacteria Few (Normal) Mucus Threads Present (Normal) Epithelial Cells (non 0-10 {/hpf} Range: 0 - 10 renal) (Normal) RBC None seen {/hpf} Range: 0 - 3 (Normal) WBC 0-5 {/hpf} (Normal) Range: 0 - 5 TSH 2.190 {uIU/mL} Comments: PATIENT WAS FASTINGPERFORMED BY: [facility]6370 [facility] [id number] :10 (Normal) Range: 0.450-4.500 0-Ifs-436896:10 Urinalysis, Complete Comments: PATIENT WAS FASTINGPERFORMED BY: [facility]6370 [facility] [id number] Microscopic Examination See below: (Normal) Microscopic Examination MICRON (Normal) Comments: Microscopic follows if indicated. Nitrite, Urine Negative (Normal) Urobilinogen,Semi-Qn 0.2 mg/dL (Normal) Range: 0.0-1.9 Bilirubin Negative (Normal) Occult Blood Negative (Normal) Ketones Negative (Normal) Glucose Negative (Normal) Protein Negative (Normal) WBC Esterase Negative (Normal) Appearance Clear (Normal) Urine-Color Yellow (Normal) pH 7.5 (Normal) Range: 5.0-7.5 Specific [place] 1.008 (Normal) Range: 1.005-1.030 2-Zkd-657502:53 CHEST, PA AND LATERAL Radiology Report See [...] shah M.D.May 28, 2012 at 3:41:15 PM [id number] Signed GP/GP If you are the referring physician and would like to consult with theradiologist who provided this interpretation, please contact Simone Espino at [phone]. If this radiologist is unavailable, youwill be directed to another radiologist to assist. If you are a patient with a question regarding this report, pl adelaidecontactyour referring physician directly. Professional Interpretation Provided By: [employer], Phone , These documents contain legally protected and confidential healt hinformation intended only for the use of the individual or entity namedabove. If you are not the intended recipient, you are hereby notifiedthatany disclosure, copying, distribution, or other use of [facility] documents isstrictly prohibited. If you have received this information in error,pleasenotify the sender immediately and arrange for the return or destructionofthese documents. Dictated on 2 1103 by Julia DÍAZ,Shylaranscribed on 05/28/12 1544 by ITS IMPORTSign by [...] Marquez M.D.May 26, 2012 at 9:02:07 PM [phone] Signed AM/AM If you are the referring physician and would like to consult with theradiologist who provided this i nterpretation, please contact Joanne Marquez M.D. at . If this radiologist is unavailable, you will bedirected to another radiologist to assist. If you are a patient with a question regarding this report, pleasecontactyour referring physician directly. Professional Interpretation Provided By: [employer], Phone , These documents contain legally protected [...] documents. Dic tated on 05/26/12823 by Sofia Marquez MDaTranscribed on 05/26/122105 by ITS IMPORTSign by Joanne Marquez MD on 05/26/122105 Sign by: Joanne Marquez MD Plan of Care Name Dates Details Instructions BMI 31.0-31.9,adult : Eprescribed prescriptions (G8553) Indication: BMI 31.0-31.9,adult Diverticulitis : Eprescribed prescriptions (G8553) Indication: Diverticulitis BMI 31.0-31.9,adult : Eprescribed prescriptions (G8553) Indication: [...] pain, right Hypertension, benign : Eprescribed prescriptions (G85) Indication: Hypertension, benign Hemorrhoids, unspecified hemorrhoid type : Eprescribed prescriptions (G85) Indication: Hemorrhoids, unspecified hemorrhoid type Hypertension, benign : Blood Pressure: hypertension Indication: Hypertension, benign Hypertension, benign : Eprescribed prescriptions (G85) Indication: Hypertension, benign Lymphadenopathy : Eprescribed prescriptions (G85) Indication: Lymphadenopathy Acute sinusitis, unspecified : *URI [...] Mixed hyperlipidemia Mixed hyperlipidemia : Eprescribed prescriptions (G85) Indication: Mixed hyperlipidemia Mixed hyperlipidemia : Eprescribed prescriptions (G85) Indication: Mixed hyperlipidemia Hiatal hernia : Reviewed [...] partial nephrectomy H/O partial nephrectomy : Reviewed Direct Care Staffer Letter Indication: H/O partial nephrectomy Abdominal pain, [...] Indication: Abdominal pain, acute, generalized Planned Observations METABOLIC PANEL, COMPREHENSIVE (92535)Indication: Fatty liver On: :32 Request HGB A1C (59890)Indication: Fatty liver On: :32 Request LIPID PANEL (61169)Indication: Fatty liver On: :32 Request Vitamin D Hydroxy (12828)Indication: Vitamin D deficiency On: :32 Request VITAMIN B-12 (CYANOCOBALAMIN) (26821)Indication: Vitamin B12 deficiency On: :32 Request Serum Free Light Chains (95933)Indication: Abnormal blood chemistry On: 98-Lng-762996:54 Request MICROALBUMIN: CREATININE RATIO (40018) AND (95847)Indication: Hypertension, benign On: :06 Request IMMUNOGLOBULIN E (IgE) (33040)Indication: Acute bronchitis On: :06 Request LIPID PANEL (53338)Indication: Mixed hyperlipidemia On: :40 Request VMCLQ-JCVTWJWUYQG-CWIXU (37421)Indication: Fatty liver On: :40 Request HGB A1C (19788)Indication: Impaired Fasting Glucose On: :40 Request METABOLIC PANEL, COMPREHENSIVE (27360)Indication: Impaired Fasting Glucose On: :40 Request CBC (AUTO) (40488)Indication: Impaired Fasting Glucose On: :49 Request Vitamin D Hydroxy (65299)Indication: Vitamin D deficiency On: :48 Request METABOLIC PANEL, COMPREHENSIVE (39322)Indication: Mixed hyperlipidemia On: :48 Request LIPOPROTEIN, BLD, BY NMR (77078)Indication: Mixed hyperlipidemia On: :48 Request TYWHC-YBRNAPKMTBF-USCRQ (03271)Indication: Acute foot pain, right On: 40-Hid-569982:38 Request Vitamin D Hydroxy (81613)Indication: Vitamin D deficiency On: :50 Request NKHKX-IPJUWHDKKNH-XJNXB (71044)Indication: Fatty liver On: :50 Request METABOLIC PANEL, COMPREHENSIVE (06131)Indication: Impaired Fasting Glucose On: :49 Request MICROALBUMIN: CREATININE RATIO (32131) AND (64337)Indication: Impaired Fasting Glucose On: :49 Request HGB A1C (79329)Indication: Impaired Fasting Glucose On: :49 Request LIPID PANEL (71100)Indication: Mixed hyperlipidemia On: :49 Request LIPID PANEL (21879)Indication: Mixed hyperlipidemia On: : Request MICROALBUMIN: CREATININE RATIO (50657) AND (83383)Indication: Impaired Fasting Glucose On: : Request Hemoglobin Glyclated (HGB A1C) (45176)Indication: Impaired Fasting Glucose On: : Request Vitamin D Hydroxy (26524)Indication: Vitamin D deficiency On: : Request Vitamin D Hydroxy (89519)Indication: Vitamin D deficiency On: :11 Request CBC with auto diff (84304)Indication: Hypertension, benign On: :11 Request METABOLIC PANEL, COMPREHENSIVE (98806)Indication: Impaired Fasting Glucose On: 58-Dbx-744248:10 Request MICROALBUMIN: CREATININE RATIO (08984) AND (80452)Indication: Impaired Fasting Glucose On: 21-Dnr-811243:10 Request Hemoglobin Glyclated (HGB A1C) (10104)Indication: Impaired Fasting Glucose On: 76-Xxh-501753:10 Request LIPID PANEL ([id number])Indication: Mixed hyperlipidemia On: 33-Tch-300050:10 Request QGLXJ-QEECQPBJMCN-DNGKF ([id number])Indication: Fatty liver On: 76-Ado-624085:10 Request Vitamin D Hydroxy (36428)Indication: Vitamin D deficiency On: :15 Request Hemoglobin Glyclated (HGB A1C) (88647)Indication: Impaired Fasting Glucose On: :14 Request METABOLIC PANEL, COMPREHENSIVE (42262)Indication: Impaired Fasting Glucose On: 7-Thh-576005:14 Request LIPID PANEL ([id number])Indication: Mixed hyperlipidemia On: 2-Xhd-479385:14 Request Lipid Panel (04445)Indication: Elevated liver enzymes On: 78-Evk-634968:47 Request HEPATIC FUNCTION PANEL ([id number])Indication: Mixed hyperlipidemia On: 47-Aaz-226721:08 Request CALCIFEDIOL (72772)Indication: Unspecified Diagnosis On: :53 Request Lipid Panel (01749)Indication: Unspecified Diagnosis On: 43-Okp-61410:53 Request Lipid Panel ([id number])Indication: SCREENING FOR HYPERLIPIDEMIA (Renamed from Encounter for screening for lipoid disorders) On: 77-Vii-790418:34 Request Comments: To be drawn Fasting Mar 2014 METABOLIC PANEL, COMPREHENSIVE ([id number])Indication: Left knee pain On: 05-Mbd-856394:39 Request CCP ANTIBODY ([id number])Indication: Left knee pain On: :39 Request SED RATE ERYTHROCYTE ([id number])Indication: Left knee pain On: :39 Request C-REACTIVE PROTEIN ([id number])Indication: Left knee pain On: 45-Xzw-106470:39 Request TSH ([id number])Indication: Left knee pain On: 74-Lgu-326446:39 Request RHEUMATOID FACTOR-QUANT ([id number])Indication: Left knee pain On: :39 Request Rapid Strep Test, Office (56386)Indication: ACUTE PHARYNGITIS (462.) On: :20 Request C-REACT PROT HIGH SENS(hsCRP) ([id number])Indication: Hypertension, benign On: 73-Ofq-024790:16 Request Sed Rate Erythrocyte (87490)Indication: Hypertension, benign On: 50-Ohj-288646:16 Request CBC with manual diff (64211)Indication: Hypertension, benign On: 62-Xia-189654:16 Request TSH ([id number])Indication: Chest pain On: :33 Request CBC WITH MANUAL DIFF (57443)Indication: Chest pain On: :33 Request MICROALBUMIN: CREATININE RATIO (75426) AND (25927)Indication: Hypertension, benign On: :47 Request URINALYSIS, W/ MICRO (36403)Indication: Hypertension, benign On: 13-Zay-472336:47 Request Hemoglobin Glyclated (HGB A1C) (13158)Indication: Obesity, unspecified On: 25-Stq-353084:47 Request LIPID PANEL ([id number])Indication: Mixed hyperlipidemia On: 17-Ggs-370545:46 Request METABOLIC PANEL, COMPREHENSIVE ([id number])Indication: Hypertension, benign On: 36-Kbb-620003:46 Request Planned Encounters Medical; [facility] 3 Month FU - On: 19-Nov-2018 10:15 [facility] Andrew MATHIS, Marcelle A Andrew DO, Marcelle A Planned Procedures DEXA SCAN AXIAL SKELETON On: 20-Aug-2018 Intent ([id number])By: Marcelle Daley DO, DO Marcelle A SCREENING DIGITAL TOMOSYNTHESIS OF On: 20-Aug-2018 Intent BREAST ([id number])By: Marcelle Daley DO, DO, Marcelle A CT ABDOMEN AND PELVIS WITHOUT On: 10-Aug-2018 Intent CONTRAST ([id number])By: Marcelle Daley DO Comments: stone protocol- STAT STAT STAT STAT STAT STAT A Andrew MATHIS Marcelle A ELECTROCARDIOGRAM, COMPLETE (ECG) On: 26-Jul-2018 Intent (57471)By: Catalina Corona Comments: Normal Sinus Rhythm-HR 67 ORTHOSTATIC BLOOD PRESSURE On: 26-Jul-2018 Intent ASSESSMENT ([id number])By: Cj Comments: Layin/68 HR 60Sittin/70 HU53Qjwymcvu: 84/66 HR 90 [place] Flu Vaccine (Quadrivalent) On: 30-Apr-2018 Intent 70651He: Marcelle Daley DO, DO, Comments: Lot #[id number]/19Site-L dltd, IMDose prefilled syringegiven by: Marta AVINA reviewed and ABN signed Marcelle A MAGNETIC RESONANCE IMAGING OF On: 07-Mar-2018 Intent RIGHT CALF WITHOUT THEN WITH CONTRAST ([id number])By: Sara Henry Doppler Ultrasound OtherBy: Fast On: 06-Mar-2018 Intent Marcelle MATHIS DO, Marcelle A Comments: right leg- stat CT - Abdomen & Pelvis (IV Contrast On: 31-Jan-2018 Intent Needed)By: Marcelle Daley DO Comments: with and without contrast Marcelle MATHIS A Ultrasound - ThyroidBy: Andrew MATHIS, On: 16-Oct-2017 Intent Marcelle A Fast DO, Marcelle A ELECTROCARDIOGRAM, COMPLETE (ECG) On: 20-Jun-2017 Intent ([id number])By: Fast DO, Marcelle A Fast DO, Marcelle A SCREENING DIGITAL TOMOSYNTHESIS OF On: 20-Jun-2017 Intent BREAST ([id number])By: Fast DO, Marcelle A Fast DO, Marcelle A Flu Vaccine (Quadrivalent) On: 20-Jun-2017 Intent 70477Tk: Fast DO, Marcelle A Fast DO, Comments: lot: [id number]: 02/05/18ite/route: L blayne, IMamt: 0.5mlVIS and ABN signed when applicableChelsea, CHAMP Marcelle A Doppler Ultrasound OtherBy: Fast On: 28-Apr-2017 Intent DO, Marcelle A Fast DO, Marcelle A Comments: rightleg today call results Radiology - Knee - Right - Weight On: 28-Apr-2017 Intent BearingBy: Fast DO, Marcelle A Fast DO, Marcelle A Radiology - Foot - RightBy: Fast On: 28-Apr-2017 Intent DO, Marcelle A Fast DO, Marcelle A Comments: attn 2nd 3rd metatarsal pain Ultrasound - LiverBy: Fast DO, On: 19-Mar-2017 Intent Marcelle A Fast DO, Marcelle A B 12 Injection, 1000 mcg On: 09-Dec-2016 Intent ([id number])By: Fast DO, Marcelle A Fast Comments: Lot:[id number]:01/05Dose:1mlRoute:IMSite:l armGiven By:JSHAHRAM signed DO, Marcelle A Aerosol Treatment ([id number])By: Fast On: 23-Sep-2016 Intent DO, Marcelle A Fast DO, Marcelle A Comments: with albuterol Ultrasound - ThyroidBy: Fast DO, On: 29-Aug-2016 Intent Marcelle A Fast DO, Marcelle A Radiology - Shoulder - LeftBy: On: 16-May-2016 Intent Fast DO, Marcelle A Fast DO, Marcelle A Comments: with ac joint please DEXA SCAN AXIAL SKELETON On: 16-May-2016 Intent ([id number])By: Fast DO, Marcelle A Fast DO, Marcelle A MAMMOGRAM, SCREENING, BOTH BREAST On: 16-May-2016 Intent ([id number])By: Fast DO, Marcelle A Fast DO, Marcelle A ELECTROCARDIOGRAM, COMPLETE (ECG) On: 16-May-2016 Intent ([id number])By: Fast DO, Marcelle A Fast Comments: ekg showed normal sinus rhythym, normal axis, no acute st/t wave changes slight prolong qt DO, Marcelle A Flu Vaccine (Quadrivalent) On: 16-May-2016 Intent 54867Nd: Fast DO, Marcelle A Fast DO, Comments: Lot #:[id number] date:02/17/17mount given:0.5mlRoute: IMSite given: left deltoidGiven by: TRAM Burch Marcelle A ADMINISTRATION OF INFLUENZA VIRUS On: 16-May-2016 Intent VACCINE ([id number])By: Fast DO, Marcelle A Fast DO, Marcelle A Radiology - Foot - RightBy: Fast On: 16-Mar-2016 Intent DO, Marcelle A Fast DO, Marcelle A CT - Chest (Without Contrast)By: On: 18-Sep-2015 Intent Fast DO, Marcelle A Fast DO, Marcelle A Comments: attn left suproaclavicular Ultrasound - ThyroidBy: Andrew DO, On: 18-Sep-2015 Intent Marcelle A Fast DO, Marcelle A Ultrasound - ThyroidBy: Felix BACH, On: 27-May-2015 Intent Vivian Mosqueda Radiology - ChestBy: Felix BACH, On: 18-May-2015 Intent Vivian Mosqueda MAMMOGRAM, SCREENING, BOTH BREAST On: 15-May-2015 Intent ([id number])By: Fast DO, Marcelle A Fast DO, Marcelle A Flu Vaccine (Quadrivalent) On: 15-May-2015 Intent 09529Eb: Fast DO, Marcelle A Fast DO, Comments: Lot:[id number]:01/03Dose:0.5mLRoute:IMSite:L DltdGiven By:AZEB Kennedy signed Marcelle A ADMINISTRATION OF INFLUENZA VIRUS On: 15-May-2015 Intent VACCINE (G0008)By: Fast DO, Marcelle A Fast DO, Marcelle A EKG ([id number])By: Fast DO, Marcelle A On: 06-Feb-2015 Intent Fast DO, Marcelle A Comments: ekg showed normal sinus rhythym, normal axis, no acute st/t wave changes lvh no change Aerosol Treatment ([id number])By: On: 15-Jan-2015 Intent Jing Harrison DO Comments: more a/e - still exp noise on left side only Radiology - Chest- PA and LatBy: On: 15-Jan-2015 Intent Christy MATHIS Jing Flu Vaccine (Quadrivalent) On: 20-Jun-2014 Intent [id number]: Vivian Washington CNP ADMINISTRATION OF INFLUENZA VIRUS On: 20-Jun-2014 Intent VACCINE (G0008)By: Vivian Washington CNP Ultrasound - ThyroidBy: Christy , On: 19-Jun-2014 Intent Jing EsophagramBy: Christy Jing MATHIS On: 19-Jun-2014 Intent Comments: with [address] - Abdomen & PelvisBy: Dayne On: 26-Nov-2013 Intent George BARRON Comments: KIDNEY-L CT - PelvisBy: Vivian Washington CNP On: 26-Nov-2013 Intent Comments: Attention Left kidney hypodensity L POle, previous L partial nephrectomy Ultrasound - RenalBy: Felix BACH, On: 22-Nov-2013 Intent Vivian Mosqueda Eprescribed prescriptions On: 16-Jul-2013 Intent (G8553)By: Vivian Washington CNP IMMUNIZ ADMNIN, 1 VAC, SNGL/COMBO On: 03-Jul-2013 Intent (71452)By: Maty Taveras LPN Comments: Lot #[id number]-L dltd, IMDose prefilled syringegiven by:SIMONE Luque and ABN signed FLU VAC, SPLIT, >3 YEARS, On: 03-Jul-2013 Intent INTRAMUSC (17457)By: Maty Taveras LPN Toradol Injection, 30 mg On: 31-May-2013 Intent ([id number])By: Vivian Washington CNP Radiology - Left KneeBy: Felix On: 31-May-2013 Intent Vivian BACH Eprescribed prescriptions On: 06-Mar-2013 Intent (G8553)By: Sara Henry EKG (79902)By: Marcelle Daley DO On: 15-Oct-2012 Intent Marcelle Daley DO Comments: ekg showed normal sinus rhythym, normal axis, no acute st/t wave changes nsivcd no change Spirometry (43438)By: Fast DO, On: 15-Oct-2012 Intent Marcelle A Fast DO, Marcelle A Comments: good effort and curve normal Radiology - Chest- PA and LatBy: On: 15-Oct-2012 Intent Fast DO, Marcelle A Fast DO, Marcelle A Ultrasound - GallbladderBy: Fast On: 09-Oct-2012 Intent DO, Marcelle A Fast DO, Marcelle A Eprescribed prescriptions On: 09-Oct-2012 Intent (G8553)By: Melania Salcedo Aerosol Treatment (96173)By: Cilori On: 21-Sep-2012 Intent Vivian BACH Eprescribed prescriptions On: 20-Jul-2012 Intent (G8553)By: Melania Salcedo SPECIMEN HNDLNG/TRNSPRT, OFFC > On: 11-Jul-2012 Intent LAB (53193)By: George Oscar LPN FLU VAC, SPLIT, >3 YEARS, On: 18-May-2012 Intent INTRAMUSC (57255)By: Denisse, Comments: Lot:[id number]:prefilledRoute:IMSite:L DltdGiven By:BRIAN Velázquez CT - Abdomen & PelvisBy: Fast DO, On: 18-May-2012 Intent Marcelle A Fast DO, Marcelle A Echo CompleteBy: Fast DO, Marcelle A On: 18-May-2012 Intent Fast DO, Marcelle A Spirometry (28904)By: Fast DO, On: 18-May-2012 Intent Marcelle A Fast DO, Marcelle A Comments: good effort and curve normal Eprescribed prescriptions On: 18-May-2012 Intent (G8553)By: Fast DO, Marcelle A Fast DO, Marcelle A EKG (42277)By: Fast DO, Marcelle A On: 18-May-2012 Intent Fast DO, Marcelle A Comments: sinus with deep r waves left axis no acute st t cahnges Radiology - Chest- PA and LatBy: On: 18-May-2012 Intent Fast DO, Marcelle A Fast DO, Marcelle A TD Injection , IM (66105)By: On: 18-May-2012 Intent Melania Salcedo Comments: received in 2002 IMMUNIZ ADMNIN, 1 VAC, SNGL/COMBO On: 18-May-2012 Intent (50307)By: Melania Salcedo Planned Medications INJECTION, KETOROLAC TROMETHAMINE, [...] 31.0-31.9,adult : Patient Instructions Indication: BMI 31.0-31.9,adult Diverticulitis : How to access health information online Indication: Diverticulitis Diverticulitis : How to access health information online - Detail Indication: Diverticulitis Diverticulitis : Patient Instructions Indication: Diverticulitis BMI 31.0-31.9,adult : How to access health [...] : Patient Instructions Indication: Impaired Fasting Gl[facility] : How to access health information online Indication: [facility] Physical [facility] Physical : How to access health information online - Detail Indication: [facility] Physical [facility] Physical : Patient Instructions Indication: [facility] Well[facility] Physical Acute foot pain, [...] : Patient Instructions Indication: Hypertension, benign Encounters Review On: 20-Aug-2018 13:14 Encounter Reason: Physical female exam - Last seen between 1-3 months ago. General health: feels well with minor complaints (patient states she thinks she passed the kidney stone. States she will have some twinges of scott n in the same area but not as intense. Has some concerns regarding her hair loss, feels it is getting worse and hair not growing.), has good energy level (comes and goes. Has been anxious lately) and is sleeping well (will have trouble occassionally). The patient's appetite is normal. Nutrition: normal/adequate. Exercises 5 (5-6) days per week. Sleeps on average 7 hours per night. Elimination problems include constipation and diarrhea. Current emotional problems include anxiety. screening, colonoscopy (10/2014), screening, mammography, screening, Pap smear (does not get any longer, hysterectomy) and screening, visual acuity (biannual). Note for Physical exam: [facility] Wellness: she thinks she passed the stone but missed straining it pain not gone but everyday getting better- just occ little cramp bu t overall alot better-bp low still taking half of 100 losarten needs to cut to 1/4- dreams got better with lower amounts of gabapentin- weight down 70plus pounds since highest working hard on it and doi ng great - working on the exercise and doing classes- does have some issues with const /diarrhea but most of time bowels fine- not leaking urine like she was- - sleeping most of time pretty good- unless alot of stressEncounter Diagnosis: Current nonsmoker, BMI 31.0-31.9,adult, Encounter for screening mammogram for breast cancer (Renamed from Encounter for screening mammogram for malignant neoplasm of breast), Postmenopausal (Renamed from Postmenopausal status), Rib pain on left side , Fatty liver, Hair loss, [facility] exam, Vitamin D deficiency, Vitamin B12 deficiency [facility] Office Visit On: 10-Aug-2018 18:51 Encounter Diagnosis: Nephrolithiasis End: 19-Aug-2018 19:53 [facility] Annotation/Addendum On: 10-Aug-2018 14:49 Encounter Diagnosis: Flank pain End: 10-Aug-2018 14:53 [facility] Office Visit On: 08-Aug-2018 11:55 Encounter Reason: Flank Pain - This condition occurred without any known injury. Symptoms include dysuria (last night slightly), flank pain (L side) and nausea, while symptoms do not include hematuria, back pain or vomit End: 19-Aug-2018 19:51 ing. The pain is located in the left flank. The pain radiates to the side, pelvis and groin. Onset was 1 week(s) ago. The symptoms occur constantly. The patient describes symptoms as worsening. Note for Flank pain: gets up in am and ok and gets worse as day goes on - no fever- little dysuria comes and goes- mostly the back hursts starts at bra line then radiates down to left lower quad- little diarrhea off and on- little diarrhea no blood - Encounter Diagnosis: Current nonsmoker, BMI 31.0-31.9,adult, Dysuria, Diverticulitis, Rib pain on left side [facility] Phone Encounter On: 31-Jul-2018 13:53 Encounter Diagnosis: Abnormal blood chemistry End: 31-Jul-2018 13:54 [facility] Office Visit On: 27-Jul-2018 9:06 Encounter Reason: [...] it passed. Dizziness with movement. Was at [employer] working out and thought would stop and [...] BP med/ Will be seeing neurologist in [place] tomorrow), has decreased energy level (comes and [...] is sleeping poorly ([place] got [place] [facility] [place] 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 Was keeping track of BP at [facility] but the c End: 20-Sep-2015 17:39 uff [...] said had thyroi us- di dnt see Barron saw olvinbumounika about enlarged lymph node- he thought maybe fatty didnt scan- alot of stress at home thinks wh feeling bad- not having as much left lower rib pain- supposed to have ct of abd she is getting appt with urology t [facility] tthis done se we talked they can [...] with oncologist- which [facility] feel [facility] has had abd pain for 4 weeks [...] do from here. Has seen Oncologist in [place], Dr. Jan Healy which he has referred her to [facility] which she is waiting to get in. margins were not clear and was renal cell carcino ma- darrick wanted to do watchful waiting- but went for second opinion in [place]-- got referred to Dr Iglesia Gibbons- she is waiting for appt- [facility] Diagnosis: Hypertension,benign(401.1), Hyperlipidemia, Mixed (272.2), Impaired Fasting [...] for new patient female physical: [facility] at Dr [...] (530.81), Abdominal Pain,General (789.07) [facility] Payers [facility] CenterDANNA TEMITOPE VALDOVINOS; a guarantor
--- OUTSIDE RECORDS SUMMARY | 2018-11-11 07:42 | XMS RPT_ITS | Continuity of Care Document ---
:1965 Author Organization [facility] Address [address] [facility] [address] [place] [address] Phone Care Team Providers Name Role Phone [...] per [facility], non cancer per [facility] per [facility] Status: Active Hair loss (L65.9, 704.00) Status: [...] Left nephrectomy for renal cell ca per [facility] but path reviewed by [facility] said it [...] each nostril daily (55 MCG/ACT) Active Nystatin 519325 UNIT/GM External Powder 1 (one) Powder qd [...] : 06-Dec-2013 End : 21-Apr-2015 Discontinued Ergocalciferol 94238 UNIT Oral Capsule 1 (one) Capsule Capsule q week for 0 days Quantity: 12 {Capsule} Refills: 2 Ordered:08-Mar-2017 Melania Salcedo Start : 04-Nov-2014 End : 08-Mar-2017 Discontinued Ergocalciferol 89240 UNIT Oral Capsule 1 (one) Capsule Capsule [...] Status: Resolved as of 06-Feb-2015 Vaccine for wzmeyogtml-vcfrblf-vuzdytfov with poliomyelitis (Z23, V06.3) Status: Inactive as [...] without Cont Result: Comments: See Note; NOTES: [facility] Imaging Services [address] [place] [address] Abdomen/Pelvis without Cont MR#: [id number] Acct: [id number] Name: AMY VALDOVINOS Rep #: [id number] : 1965 F 53 From: Frank Petty MD PCP: Marcelle Daley DO Status: REG CLI Study: Abdomen/Pelvis without Cont Date of Exam: 08/10/18 Exam# [id number] Ordering Dr: Marcelle Daley DO STUDY: CT [...] Service support , CC: Marcelle Daley DO Marketing Services Coordinator: Signed 28-Mar-2018 NCS and/or EMG Patient Result: Comments: See Note; NOTES: [facility] Pulmonary Services/Neurology [address] [place] [address] MR#: [id number] Acct: [id number] Name: AMY VALDOVINOS Rep #: [id number] : 0 1965 52 From: Adebayo Canchola MD Referring Dr: Blayne Welsh DPM Status: REG CLI Ordering Dr: Date: Location: [facility] Sex: F C NCS and/or EMG [...] Dictated: 03/28/18 1021 Date Transcribed: 03/28/18 102 Marketing Services Coordinator: NF Signed 10-Mar-2018 Lower Ext No Joint W/WO Cont Result: Comments: See Note; NOTES: [facility] Imaging Services [address] [place] [address] Lower Ext No Joint W/WO Cont MR#: [id number] Acct: [id number] Name: AMY VALDOVINOS Rep #: [id number] : 1965 F 52 From: Ge Moffett MD PCP: Marcelle Daley DO Status: REG CLI Study: Lower Ext No Joint W/WO Cont Date of Exam: 03/10/18 Exam# [id number] Ordering Dr: Marcelle Daley DO STUD Y: [...] EDT Tel , Service support , CC: Marcelel Daley DO Marketing Services Coordinator: Signed 06-Mar-2018 Venous Duplex Lower Extremity Result: Comments: See Note; NOTES: [facility] Cardiovascular Services [address] [place] [address] Venous Duplex US, Unilateral 03/06/18 1435 MR#: [id number] Acct: [id number] Name: AMY CHOI Rep #: [id number] : 1965 52 From: Jared Hines MD Attending Dr: Marcelle Daley DO Status: REG CLI Ordering Dr: Marcelle Daley DO Date: 03/06/18 Location: [facility] Sex: F C Admitted: [place] son For Study: LEG SWELLING RIGHT LEFT [...] Dictated: 03/06/18 1435 Date Transcribed: 03/06/18 1623 Marketing Services Coordinator: Signed 19-Feb-2018 Abdomen/Pelvis WITH Contrast Result: Comments: See Note; NOTES: [facility] Imaging Services [address] [place] [address] Abdomen/Pelvis WITH Contrast MR#: [id number] Acct: [id number] Name: AMY VADLOVINOS Rep #: [id number] : 1965 F 52 From: Jono Dumont MD PCP: Marcelle Daley DO Status: REG CLI Study: Abdomen/Pelvis WITH Contrast Date of Exam: 02/19/18 Exam# [id number] Ordering Dr: Marcelle Daley TUDY: CT ABDOMEN [...] Jono Dumont MD at 10:35 EDT Tel [phone], Service support , CC: Marcelle Daley DO Marketing Services Coordinator: Signed 17-Oct-2017 Thyroid Result: Comments: See Note; NOTES: [facility] Imaging Services [address] [place] [address] Thyroid MR#: [id number] Acct: [id number] Name: AMY VALDOVINOS Rep #: [id number] : [birth year] F 52 From: Shine Saweyr MD PCP: Marcelle Daley DO Status: REG CLI Study: Thyroid Date of Exam: 10/17/17 Exam# [id number] Ordering Dr: Marcelle Daley DO STUDY: THYROID [...] Service support , CC: Marcelle Daley DO Marketing Services Coordinator: Signed 01-Aug-2017 SCREENING MAMM (CAD), BILAT Result: Comments: See Note; NOTES: [facility] Imaging Services [address] [place] [address] SCREENING MAMM (CAD), BILAT MR#: [id number] Acct: [id number] Name: AMY VALDOVINOS Rep #: [id number] : 1965 F 52 From: Jono Dumont MD PCP: Marcelle Daley DO Status: REG CLI Study: SCREENING MAMM (CAD), BILAT Date of Exam: 08/01/17 Exam# [id number] Ordering Dr: Marcelle Daley DO [facility] MOGRAPHY - BILATERAL SCREENING REASON FOR EXAM: [...] delay biopsy of a clinically suspicious abnormality. [id number] Electronically Signed: Alma Dumont MD at 15:11 EST Tel [phone], Service support , CC: Marcelle Daley DO Marketing Services Coordinator: Signed 01-May-2017 Venous Duplex Lower Extremity Result: Comments: See Note; NOTES: [facility] Cardiovascular Services [address] [place] [address] Venous Duplex US, Unilateral 04/28/17 1357 MR#: [id number] Acct: [id number] Name: AMY CHOI Rep #: [id number] : 1965 51 From: Jared Hines MD [...] Dictated: 04/28/17 1357 Date Transcribed: 05/01/17 0855 Marketing Services Coordinator: Signed 28-Apr-2017 Foot min 3 Views Result: Comments: See Note; NOTES: [facility] Imaging Services [address] [place] [address] Foot min 3 Views MR#: [id number] Acct: [id number] Name: AMY VALDOVINOS Rep #: [id number] D OB: 1965 F 51 From: Amarjit Britton DO PCP: Fast DO,Marcelle Status: REG CLI Study: Foot min 3 Views Date of Exam: 04/28/17 Exam# [id number] Ordering Dr: Marcelle Daley DO STUDY: X-RAY [...] Amarjit Britton DO at 20:42 EDT Tel [phone], Service support , CC: Marcelle Daley DO Marketing Services Coordinator: Signed 28-Apr-2017 Knee 4 or More Views Result: Comments: See Note; NOTES: [facility] Imaging Services [address] [place] [address] Knee 4 or More Views MR#: [id number] Acct: [id number] Name: AMY VALDOVINOS Rep #: [id number] : 1965 F 51 From: Amarjit Britton DO PCP: Marcelle Daley DO Status: REG CLI Study: Knee 4 or More Views Date of Exam: 04/28/17 Exam# [id number] Ordering Dr: Marcelle Daley DO STUDY: X-RAY [...] Amarjit Britton DO at 20:31 EDT Tel [phone], Service support , CC: Marcelle Daley DO Marketing Services Coordinator: Signed 23-Mar-2017 Liver Result: Comments: See Note; NOTES: [facility] Imaging Services [address] [place], [place] [address] Liver MR#: [id number] Acct: [id number] Name: AMY VALDOVINOS Rep #: [id number] : [birth year] F 51 From: Jono Dumont MD PCP: Marcelle Daley DO Status: REG CLI Study: Liver Date of Exam: 03/23/17 Exam# [id number] Ordering Dr: Marcelle Daley DO STUDY: ABDOMINAL [...] Jono Dumont MD at 8:50 EDT Tel [phone], Service support , CC: Marcelle Daley DO Marketing Services Coordinator: Signed 31-Aug-2016 Thyroid Result: Comments: See Note; NOTES: [facility] Imaging Services [address] [place] [address] Verdana 4d Thyroid MR#: [id number] Acct: [id number] Name: AMY VALDOVINOS Rep #: [id number] : 1965 F 51 From: Amarjit Britton DO PCP: Marcelle Daley DO Status: REG CLI Study: Thyroid Date of Exam: 08/31/16 Exam# [id number] Ordering Dr: Marcelle Daley DO STUDY: THYROID [...] Amarjit Britton DO at 23:35 EST Tel [phone], Service support [phone], CC: Marcelle Daley DO Marketing Services Coordinator: Signed 09-Jun-2016 Bilat Scrn Digital AND CAD Result: Comments: See Note; NOTES: [facility] Imaging Services [address] [place] [address] Verdana 4d Bilat Scrn Digital AND CAD MR#: [id number] Acct: [id number] Name: AMY VALDOVINOS Rep #: [id number] : 1965 F 51 From: Jono Dumont MD PCP: Marcelle Daley DO Status: REG CLI Study: Bilat Scrn Digital AND CAD Date of Exam: 06/09/16 Exam# [id number] Ordering Dr: Tl Daley DO MAMMOGRAPHY - [...] delay biopsy of a clinically suspicious abnormality. [id number] Electronically Signed: Jono Dumont MD at 15:05 EDT Tel [phone], Servi ce support [phone], CC: Marcelle Daley DO Marketing Services Coordinator: Signed 09-Jun-2016 Dexa Bone Density Study (HP) Result: Comments: See Note; NOTES: [facility] Imaging Services [address] [place] [address] Verdana 4d Dexa Bone Density Study (HP) MR#: [id number] Acct: [id number] Name: AMY VALDOVINOS Rep #: [id number] : 1965 F 51 From: Jono Dumont MD PCP: Marcelle Daley DO Status: REG CLI Study: Dexa Bone Density Study (HP) Date of Exam: 06/09/16 Exam# [id number] Ordering Dr: Marcelle Daley DO STUDY: DUAL [...] Jono Dumont MD at 8:21 EDT Tel [phone], Service support [phone], CC: Marcelle Daley DO Marketing Services Coordinator: Signed 17-May-2016 Shoulder min 2 Views Result: Comments: See Note; NOTES: [facility] Imaging Services [address] [place] [address] Verdana 4d Shoulder min 2 Views MR#: [id number] Acct: [id number] Name: AMY VALDOVINOS p #: [id number] : 1965 F 50 From: Jono Dumont MD PCP: Marcelle Daley DO Status: REG CLI Study: Shoulder min 2 Views Date of Exam: 05/17/16 Exam# [id number] Ordering Dr: Marcelle Daley Y: X-RAY - [...] Dumont MD 06/05/27 at 12:52 EDT Tel [phone], Service support [phone], CC: Marcelle Daley DO Marketing Services Coordinator: Signed 17-Mar-2016 Foot min 3 Views Result: Comments: See Note; NOTES: [facility] Imaging Services [address] [place] [address] Verdana 4d Foot min 3 Views MR#: [id number] Acct: [id number] Name: AMY VALDOVINOS Rep #: [id number] : 1965 F 50 From: Malcom Emmanuel MD PCP: Marcelle Daley DO Status: REG CLI Study: Foot min 3 Views Date of Exam: 03/17/16 Exam# [id number] Ordering Dr: Marcelle Daley DO STUDY: X-RAY [...] MD at 13:39 EDT , Service support [phone], CC: Marcelle Daley DO Marketing Services Coordinator: Signed 10-Nov-2015 Chest without Contrast Result: Comments: See Note; NOTES: [facility] Imaging Services [address] [place] [address] Verdana 4d Chest without Contrast MR#: [id number] Acct: [id number] Name: AMY GUILLERMO Rep #: [id number] : 1965 F 50 From: Ismael Mejia DO PCP: Marcelle Daley DO Status: REG CLI Study: Chest without Contrast Date of Exam: 11/10/15 Exam# [id number] Ordering Dr: Mabel Daley ra, DO ADDENDUM by Ismael Mejia on 11/23/15 at 0952 ADDENDUM ADDENDUM: Review of the soft ti ssues of the supraclavicular regions demonstrate no evidence of lymphadenopathy or other soft tissue abnormality. Electronically Signed: Ismael Mejia DO at 9:52 EDT Tel [phone], Serv ice support [phone], 11/23/15 0952 Date cc: Mracelle Daley DO * Signed STUDY: CT CHEST [...] Ismael Mejia DO at 21:20 EDT Tel [phone], Servic e support [phone], CC: Marcelle Daley DO Marketing Services Coordinator: Signed 10-Nov-2015 Chest without Contrast Result: Comments: See Note; NOTES: [facility] Imaging Services [address] [place] [address] Verdana 4d Chest without Contrast MR#: [id number] Acct: [id number] Name: AMY GUILLERMO Rep #: [id number] : 1965 F 50 From: Ismael Mejia DO PCP: Marcelle Daley DO Status: REG CLI Study: Chest without Contrast Date of Exam: 11/10/15 Exam# [id number] Ordering Dr: Mabel Daley ra, DO STUDY: [...] Ismael Mejia DO at 21:20 EDT Tel [phone], Service support [phone], CC: Marcelle Daley DO Marketing Services Coordinator: Signed 10-Nov-2015 Thyroid Result: Comments: See Note; NOTES: [facility] Imaging Services [address] [place] [address] Verdana 4d Thyroid MR#: [id number] Acct: [id number] Name: AMY VALDOVINOS Rep #: [id number] : 1965 F 50 From: Jono Dumont MD PCP: Marcelle Daley DO Status: REG CLI Study: Thyroid Date of Exam: 11/10/15 Exam# [id number] Ordering Dr: Marcelle Daley DO STUDY: THYROI [...] Jono swann MD at 10:10 EDT Tel [phone], Service support [phone], CC: Marcelle Daley DO Marketing Services Coordinator: Signed 08-Sep-2015 EKG (99019) Comments: ekg showed normal sinus rhythym, left axis, no acute st/t wave changes lv strain Result: [MEASUREMENTS ANALYSIS] Date of Test: 09/08/2015 12:10:48; Heart Rate: 55; CA Interval: 164; QRS: 114; QT Interval: 462; Corrected QT Interval (QTc): 454; P Wave [place]: 34; QRS Wave [place]: -29; T Wave Axi s: -16; Blood Pressure: 148/98 [ECG DIAGNOSTIC STATEMENTS] Date of Test: 09/08/2015 12:10:48; Summary: Sinus Bradycardia -Left axis. Voltage criteria for LVH (S(V1)+R(V6) exceeds 3.50 mV). -Nonspeci fic ST depression -Seen with left ventricular hypertrophy (strain) or digitalis effect. ABNORMAL 26-May-2015 Bilat Scrn Digital AND CAD Result: Comments: See Note; NOTES: [facility] Imaging Services [address] [place] [address] Breast Imaging Report MR#: [id number] Acct: [id number] Name: AMY VALDOVINOS Rep #: [id number] : 1965 F 50 From: Jono Dumont MD PCP: Marcelle Daley DO Status: REG CLI Study: Bilat Scrn Digital AND CAD Date of Exam: 05/26/15 Exam# [id number] Ordering Dr: Marcelle Daley DO MAMMOGRAPHY - [...] Jono Dumont MD at 15:40 EDT Tel [phone], Service support [phone], CC: Marcelle Daley DO Marketing Services Coordinator: Signed 18-May-2015 Chest PA and Lateral Result: Comments: See Note; NOTES: [facility] Imaging Services [address] [place] [address] Radiology Report MR#: [id number] Acct: [id number] Name: AMY VALDOVINOS Rep #: [id number] : 1965 F 49 From: Jono Dumont MD PCP: Marcelle Daley DO Status: REG CLI Study: Chest PA and Lateral Date of Exam: 05/18/15 Exam# [id number] Ordering Dr: Vivian Washington STUDY: X-RA Y [...] Jono Dumont MD at 14:19 EDT Tel [phone], Service support [phone], RAD/Chest PA and Lateral IMPRESSION: No acute abnormality is seen. Electronically Signed: Jono Dumont MD at 14:19 EDT Tel [phone], Service support [phone], CC: Vivian Washington; Marcelle Daley DO Marketing Services Coordinator: Signed 15-Jan-2015 Chest PA and Lateral Result: Comments: See Note; NOTES: [facility] Imaging Services [address] [place] [address] Radiology Report MR#: [id number] Acct: [id number] Name: AMY VALDOVINOS Rep #: [id number] : 1965 F 49 From: Shine Sawyer MD PCP: Marcelle Daley DO Status: REG CLI Study: Chest PA and Lateral Date of Exam: 01/15/15 Exam# [id number] Ordering Dr: Jing Harrison DO STUDY : [...] MD at 23:41 EDT , Service support [phone], RAD/Chest PA and Lateral IMPRESSION: Normal x-ray examination of the chest. Electronically Signed: Shine Sawyer MD at 23:41 E DT , Service support [phone], CC: Marcelle Daley DO; Jing Harrison DO Marketing Services Coordinator: Signed 15-Jan-2015 Inhaler Demo (08436) Result: Comments: I instructed pt to use inhaler, then she redemonstrated the technique back to me. 15-Jan-2015 Spirometry (52356) Comments: obsrtuction present Result: 29-Oct-2014 Abdomen WITH and W/O Contrast Result: Comments: See Note; NOTES: [facility] Imaging Services [address] [place] [address] MRI Report MR#: [id number] Acct: [id number] Name: AMY VALDOVINOS Rep #: [id number] : 1965 F 49 From: Heavenly Rojas MD PCP: Marcelle Daley DO Status: REG CLI Study: Abdomen WITH and W/O Contrast Date of Exam: 10/29/14 Exam# [id number] Ordering Dr: Stanton Hollingsworth MD STUDY: M RI ABDOMEN WITH AND [...] at 1 1:15 EDT , Service support [phone], CC: Marcelle Daley DO; Stanton Hollingsworth MD Marketing Services Coordinator: Signed 23-Jun-2014 Esophagus Only Result: Comments: See Note; NOTES: [facility] Imaging Services [address] [place] [address] Radiology Report MR#: [id number] Acct: [id number] Name: AMY VALDOVINOS Rep #: [id number] : 1965 F 49 From: Jono Dumont MD PCP: Status: REG CLI Study: Esophagus Only Date of Exam: 06/23/14 Exam# [id number] Ordering Dr: Jing Harrison DO STUDY: X-RAY [...] Jono Dumont MD at 9:21 EST Tel [phone], Service support [phone], RAD/Esophagus Only IMPRESSION: Small sliding hiatal hernia with no evidence of gastroesophageal reflux. Electronically Signed: Jono Dumont MD at 9:21 EST Tel [phone], Service support [phone], CC: Jing Harrison DO Marketing Services Coordinator: Signed 23-Jun-2014 Thyroid Result: Comments: See Note; NOTES: [facility] Imaging Services [address] [place] [address] Ultrasound Report MR#: [id number] Acct: [id number] Name: AMY VALDOVINOS Rep #: [id number] : 1965 F 49 From: Jono Dumont MD PCP: Status: REG CLI Study: Thyroid Date of Exam: 06/23/14 Exam# [id number] Ordering Dr: Jing Harrison DO STUDY: THYROID [...] of the thyroid. Correlation with a nu narrows medicine thyroid uptake and scan is recommended. Electronically Signed: Jono Dumont MD at 15:38 EST Tel [phone], Service support [phone], C C: Jing Harrison DO Marketing Services Coordinator: Signed 30-Nov-2013 Abdomen/Pelvis WITH Contrast Result: Comments: See Note; NOTES: [facility] Imaging Services [address] [place] [address] [place] [address] CAT Scan Report MR#: [id number] Acct: [id number] Name: AMY VALDOVINOS Rep #: [id number] : 1965 F 48 From: Jesse Carrington MD PCP: Marcelle Daley DO Status: REG CLI Study: Abdomen/Pelvis WITH Contrast Date of Exam: 11/30/13 Exam# [id number] Ordering Dr: Vivian Washington STUDY: CT ABDOMEN [...] Daley DO; Dr. Iglesia Lee M.D.; Stanton Hollingsworth MD Marketing Services Coordinator: Signed 26-Nov-2013 Kidney and Bladder Result: Comments: See Note; NOTES: [facility] Imaging Services [address] [place] [address] Ultrasound Report MR#: [id number] Acct: [id number] Name: AMY VALDOVINOS Rep #: [id number] : 1965 F 48 From: Jono Dumont MD PCP: Marcelle Daley DO Status: REG CLI Study: Kidney and Bladder Date of Exam: 11/26/13 Exam# [id number] Ordering Dr: Vivian Washington STUDY: RENAL ULTRASOUND [...] at 12:56 EDT Tel , Service support [phone], CC: Vivian Washington; Marcelle Daley DO Marketing Services Coordinator: Signed 31-May-2013 Knee 4 or More Views Result: Comments: See Note; NOTES: [facility] Imaging Services [address] [place] [address] Radiology Report MR#: [id number] Acct: [id number] Name: AMY VALDOVINOS Rep #: [id number] : 1965 F 48 From: Jono Dumont MD PCP: Status: REG CLI Study: Knee 4 or More Views Date of Exam: 05/31/13 Exam# [id number] Ordering Dr: Vivian Washington STUDY: X-RAY - [...] May 31, 2013 at 1:16:23 PM EDT [phone] Electronically Signed GP/GP If you are the referring physician and would like to consult with the radiologist w ho provided this interpretation, please contact Jono Dumont M.D. at [phone]. If this radiologist is unavailable, you will be directed to another radiologist to assist. If you are a veronica ent with a question regarding this report, please contact your referring physician directly. Professional Interpretation Provided By: [employer], Phone , These docum ents contain legally [...] destruction of these documents. 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 Status: Active Smoking Status Name Dates Details Never smoker Vital Signs Date Test Result Details 93-Jeq-652034:18 Temperature 98.6 f Comments: Method: Temporal Pulse [...] kg/m2 Body Surface Area Calculated 2.12 m2 9-Ckl-502068:20 Temperature 97.3 f Comments: Method: Temporal Pulse [...] kg/m2 Body Surface Area Calculated 2.19 m2 39-Gbs-620576:53 Temperature 97.8 f Comments: Method: Temporal Pulse [...] kg/m2 Body Surface Area Calculated 2.18 m2 : Temperature 98.2 f Comments: Method: Oral Pulse [...] kg/m2 Body Surface Area Calculated 2.21 m2 : Temperature 98.3 f Pulse 76 /min Comments: [...] 2.21 m2 Results Date Description Value Details 83-Tzx-204440:57 URINE KENROY CULTURE-IDENTIFICATN Comments: PATIENT NOT FASTINGPERFORMED BY: [facility] [facility] [id number] Information: SRC:UC (79987) Result 1 MUG (Normal) Comments: Mixed urogenital flora1,000 Colonies/mL Urine Culture,Comprehensive Final report (Normal) 84-Vdf-707269:05 Urinalysis, Office (07651) UA - LEUKOCYTE ESTERASE Negative (Normal) UA - NITRITE Negative (Normal) URINE UROBILINGN JUAN TIMED Normal mg/dL (Normal) UA - PROTEIN Negative mg/dL (Normal) UA - PH 6 (Abnormal) UA - BLOOD Negative (Normal) UA - SPECIFIC GRAVITY 1.010 (Normal) UA - KETONES Negative mg/dL (Normal) UA - BILIRUBIN Negative (Normal) UA - GLUCOSE Negative (Normal) 0-Gki-872454:26 Free K+L Lt Chains,Qn,S Comments: PATIENT NOT FASTINGPERFORMED BY: [facility] [facility] [id number]; appt 08/20 [place]/Lambda Ratio,S 1.10 (Normal) Range: 0.26-1.65 Free Lambda Lt Chains,S 10.6 mg/L (Normal) Range: 5.7-26.3 Free [place] Lt Chains,S 11.7 mg/L (Normal) Range: 3.3-19.4 Please note SPRCS (Normal) Comments: PATIENT NOT FASTINGPERFORMED BY: [facility] [facility] [id number] :26 Comments: We have received your request for additional testing or testverification. You will be notified if we are unable to processyour request. Written Authorization WAR (Normal) Comments: PATIENT NOT FASTINGPERFORMED BY: [facility] [facility] [id number] :26 Comments: Written Authorization Received.Authorization received from Written Request [id number] by Greta Milligan 0-Gsb-317831:26 urine immunofixation (93046) Comments: PATIENT NOT FASTINGPERFORMED BY: [address] [place] [id number] DIANNA Interpretation:U UPEIP (Normal) Comments: No monoclonality detected. :26 serum immunofixation (34228) Comments: PATIENT NOT FASTINGPERFORMED BY: [facility] [facility] [id number] Immunoglobulin M, Qn, Serum 42 mg/dL (Normal) Range: 26-217 Immunoglobulin A, Qn, Serum 405 mg/dL (Abnormal) Range: 87-352 Immunoglobulin G, Qn, Serum 904 mg/dL (Normal) Range: 700-1600 Immunofixation Result, Serum IFEAL (Normal) Comments: Immunofixation shows IgA monoclonal protein with lambda light chainspecificity. :39 RHEUMATOID FACTOR-QUANT Comments: send copy to Dr. Evelio Kaur [phone]; A courtesy copy of this report has been sent [phone].PATIENT NOT FASTINGPERFORMED BY: [facility] [facility] [id number] (75685) RA Latex Turbid. <10.0 {IU/mL} (Normal) Range: 0.0-13.9 :39 IMMUNOFIXATION, SERUM (59473) Comments: send copy to Dr. Evelio Kaur [phone]; A courtesy copy of this report has been sent [phone].PATIENT NOT FASTINGPERFORMED BY: [facility] [facility] [id number] remington Information: FX DR MEIER [phone] Immunoglobulin M, Qn, Serum 43 mg/dL (Normal) Range: 26-217 Immunoglobulin A, Qn, Serum 356 mg/dL (Abnormal) Range: 87-352 Immunoglobulin G, Qn, Serum 969 mg/dL (Normal) Range: 700-1600 Immunofixation Result, Serum IFEAL (Normal) Comments: Immunofixation shows IgA monoclonal protein with lambda light chainspecificity. :39 HIV-1 ANTIBODY (70068) Comments: send copy to Dr. Evelio Kaur [phone]; A courtesy copy of this report has been sent [phone].PATIENT NOT FASTINGPERFORMED BY: [employer] [facility]ukph[address] [facility] [id number] HIV Screen 4th Generation wRfx Non Reactive (Normal) 14-Djx-102315:39 HEPATITIS C ANTIBODY (84773) Comments: send copy to Dr. Evelio Kaur [phone]; A courtesy copy of this report has been sent [phone].PATIENT NOT FASTINGPERFORMED BY: [facility]otaskInspira Medical Center ElmerIimefo1950 [facility] [id number] Hep C Virus Ab <0.1 {s/co_ratio} (Normal) Range: 0.0-0.9 Comments: Negative: < 0.8 Indeterminate: 0.8 - 0.9 Positive: > 0.9 . The CDC recommends that a positive HCV antibody result be followed up with a HCV Nucleic Acid Amplification test (475099). :39 FOLIC ACID SERUM (69462) Comments: send copy to Dr. Fraser [phone]; A courtesy copy of this report has been sent [phone].PATIENT NOT FASTINGPERFORMED BY: [facility]otaskInspira Medical Center ElmerLjawvi3460 [facility] [id number] Folate (Folic Acid), Serum 14.3 ng/mL (Normal) Comments: A serum folate concentration of less than 3.1 ng/mL isconsidered to represent clinical deficiency. 47-Fcx-187116:39 ANTIEXTARACT NUCLEAR AG 6338 Comments: send copy to Dr. Evelio Kaur [phone]; A courtesy copy of this report has been sent [phone].PATIENT NOT FASTINGPERFORMED BY: [employer]otask Oheyaq0768 [facility] [id number] (14275) Up Antibodies <0.2 {AI} (Normal) Range: 0.0-0.9 SUPERINTENDENT TERMINAL Antibodies <0.2 {AI} (Normal) Range: 0.0-0.9 02-Ttu-572999:39 LOLITA (ANTINUCLEAR ANTIBODY) Comments: send copy to Dr. Fraser - [phone]; A courtesy copy of this report has been sent [phone].PATIENT NOT FASTINGPERFORMED BY: [employer]6370 [facility] [id number] (34856) LOLITA Direct Negative (Normal) :13 Vitamin B-12 (cyanocobalamin) Comments: PATIENT WAS FASTINGPERFORMED BY: Local Dirt6370 [facility] [id number] (05668) Vitamin B12 341 pg/mL (Normal) Range: 232-1245 :13 CBC with auto diff (12864) Comments: PATIENT WAS FASTINGPERFORMED BY: [employer]6370 [facility] [id number]; appt 07/27 Immature Grans (Abs) 0.0 {x10E3/uL} [...] PANEL, COMPREHENSIVE Comments: PATIENT WAS FASTINGPERFORMED BY: Blume DistillationAtrium Health [facility] [id number] (37879) ALT (SGPT) 19 [iU]/L (Normal) Range: 0-32 [...] Glucose 80 mg/dL (Normal) Range: 65-99 :13 RCFOG-AJGEJEBPWPU-WMYSV (85769) Comments: PATIENT WAS FASTINGPERFORMED BY: [employer]70 [facility]pr[facility] [id number] AFP, Serum, Tumor Marker 3.6 ng/mL (Normal) Range: 0.0-8.3 Comments: Ozzie ECLIA methodology 76-Bdm-580052:05 URINE KENROY CULTURE-IDENTIFICATN Comments: PATIENT NOT FASTINGPERFORMED BY: FreespeeMun[facility]6370 [facility] [id number] Information: SRC:UC (95166) Result 1 MUG (Normal) Comments: Mixed urogenital flora1,000 Colonies/mL Urine Culture,Comprehensive Final report (Normal) 05-Zgv-708256:56 Urinalysis, Office (27010) UA - LEUKOCYTE ESTERASE Trace (Normal) UA - NITRITE Negative (Normal) URINE UROBILINGN JUAN TIMED Normal mg/dL (Normal) UA - PROTEIN Trace mg/dL (Normal) UA - PH 5 (Abnormal) UA - BLOOD Negative (Normal) UA - SPECIFIC GRAVITY 1.030 (Abnormal) UA - KETONES Negative mg/dL (Normal) UA - BILIRUBIN Small (Normal) UA - GLUCOSE Negative (Normal) 93-Tsg-290988:28 CBC, PLATELETS & AUT DIFF Comments: PATIENT WAS FASTINGPERFORMED BY: AutotaskInspira Medical Center ElmerOnkcba6890 [facility] [id number] (58450) Immature Grans (Abs) 0.0 {x10E3/uL} (Normal) Range: [...] B-12 (CYANOCOBALAMIN) Comments: PATIENT WAS FASTINGPERFORMED BY: [employer] ComponentLab [facility] [place] [id number] (79786) Vitamin B12 413 pg/mL (Normal) Range: 232-1245 :28 Vitamin D Hydroxy (71368) Comments: PATIENT WAS FASTINGPERFORMED BY: [facility] Lgxeow1386 [place] [facility] Hospitalbl[facility] [place] [id number] Vitamin D, 25-Hydroxy 52.6 ng/mL (Normal) Range: 30.0-100.0 Comments: Vitamin D deficiency has been defined by the [place] ofMer[facility] Health Allen Hospitalcine and an Endocrine Society practice guideline as alevel of serum 25-OH vitamin D less than 20 ng/mL (1,2).The Endocrine Society went on to further define vitamin Dinsufficiency as a level between 21 and 29 ng/mL (2).1. IOM ([place] of Medicine). 2010. Dietary reference intakes for calcium and D. [place]: The National Academies Press.2. Myla MF, Javier NC, Panfilo MANN, et al. Evaluation, treatment, and prevention of vitamin D deficiency: an Endocrine Society clinical practice guideline. JCEM. 2010; 96(7):1911-30. :28 LIPID PANEL (33155) Comments: PATIENT WAS FASTINGPERFORMED BY: LabOYE! Wraixp2071 [facility] Centerin [place] [id number] LDL/HDL Ratio 1.3 {ratio} (Normal) Range: 0.0-3.2 Comments: LDL/HDL Ratio Men Women 1/2 Avg.Risk 1.0 1.5 Av g.Risk 3.6 3.2 2X Avg.Risk 6.2 5.0 3X Avg.Risk 8.0 6.1 LDL Cholesterol Calc 51 mg/dL (Normal) Range: 0-99 VLDL Cholesterol Remington 11 mg/dL (Normal) Range: 5-40 HDL Cholesterol 38 mg/dL (Abnormal) Triglycerides 55 mg/dL (Normal) Range: 0-149 Cholesterol, Total 100 mg/dL (Normal) Range: 100-199 33-Wdz-461732:38 HgA1C , Office (25808) HgA1C , Office 6.1 % (Normal) Range: 4.6 - 7.1 48-Ydj-256429:28 HGB A1C (90405) Comments: PATIENT WAS FASTINGPERFORMED BY: [employer] Jwrhyw9857 [facility] [id number] Hemoglobin A1c 5.6 % (Normal) Range: 4.8-5.6 Comments: . Prediabetes: 5.7 - 6.4 Diabetes: >6.4 Glycemic control for adults with diabetes: <7.0 53-Rcd-496287:28 RKJVM-ZXKQWHTXZBP-GKVGC (49824) Comments: PATIENT WAS FASTINGPERFORMED BY: DataContact [facility] [id number] AFP, Serum, Tumor Marker 3.6 ng/mL (Normal) Range: 0.0-8.3 Comments: Ozzie ECLIA methodology :28 MICROALBUMIN: CREATININE RATIO Comments: PATIENT WAS FASTINGPERFORMED BY: [employer] Snupeg4355 [facility] [id number] (34169) AND (71129) Alb/Creat Ratio 4.1 {mg/g_creat} (Normal) Range: 0.0-30.0 Albumin, Urine 5.8 ug/mL (Normal) Creatinine, Urine 139.9 mg/dL (Normal) 51-Rjb-445180:28 METABOLIC PANEL, COMPREHENSIVE Comments: PATIENT WAS FASTINGPERFORMED BY: [employer] Ompucb8939 [facility] [id number]; review at 05/07 appt (25817) ALT (SGPT) 19 [iU]/L (Normal) Range: 0-32 [...] mg/dL (Normal) Range: 65-99 23-Jan-20188:21 LIPID PANEL (43318) Comments: PATIENT WAS FASTINGPERFORMED BY: LabCoInspira Medical Center ElmerKvjjwo4901 [facility] [id number] LDL/HDL Ratio 1.6 {ratio} (Normal) Range: 0.0-3.2 [...] Range: 100-199 :21 CBC W/AUTO DIFF WBC (73139) Comments: PATIENT WAS FASTINGPERFORMED BY: LabCoInspira Medical Center ElmerBnjopf2053 [facility] [id number]; review on 01/31 Immature Grans (Abs) 0.0 [...] 3.77-5.28 WBC 10.4 {x10E3/uL} (Normal) Range: 3.4-10.8 :21 METABOLIC PANEL, COMPREHENSIVE Comments: PATIENT WAS FASTINGPERFORMED BY: [facility] CincinnatiCoInspira [facility] Center ElmerZqfcur7927 [facility] [id number] (86263) ALT (SGPT) 18 [iU]/L (Normal) Range: 0-32 [...] 6-24 Glucose 98 mg/dL (Normal) Range: 65-99 61-Rll-912651:22 TSH (18881) Comments: PATIENT NOT FASTINGPERFORMED BY: [employer]70 Cytomics PharmaceuticalsECU [facility] [id number] TSH 1.150 {uIU/mL} (Normal) Range: 0.450-4.500 95-Bol-223354:22 SED RATE ERYTHROCYTE (84805) Comments: PATIENT NOT FASTINGPERFORMED BY: Un-Lease.comox NewHoundECU Health [facility] [id number] Sedimentation Rate-Westergren 8 mm/h (Normal) Range: 0-40 64-Psq-131206:22 C-REACTIVE PROTEIN (66212) Comments: PATIENT NOT FASTINGPERFORMED BY: FreespeeCoEastern New Mexico Medical CenterNudkht9868 [address]aca RoadDublin [place] [id number] C-Reactive Protein, Quant 2.5 mg/L (Normal) Range: 0.0-4.9 92-Wjf-267587:22 LOLITA (ANTINUCLEAR ANTIBODY) Comments: PATIENT NOT FASTINGPERFORMED BY: LabCoEastern New Mexico Medical CenterEuthcx9524 Vaca RoadDublin [place] [id number] (13215) LOLITA Direct Negative (Normal) 80-Gpk-846082:22 VITAMIN B-12 (CYANOCOBALAMIN) Comments: PATIENT NOT FASTINGPERFORMED BY: AutotaskInspira Medical Center ElmerCtvbiv9959 Vaca RoadDublin [place] [id number] (50396) Vitamin B12 340 pg/mL (Normal) Range: 232-1245 43-Fil-851571:22 IRON (89403) Comments: PATIENT NOT FASTINGPERFORMED BY: AutotaskInspira Medical Center ElmerQcamxr9517 [address] RoadDublin [place] [id number] Iron, Serum 57 ug/dL (Normal) Range: 27-159 34-Dcr-160844:22 FERRITIN (21948) Comments: PATIENT NOT FASTINGPERFORMED BY: FreespeeCoEastern New Mexico Medical CenterFjbwvm1706 Vaca RoadDublin [place] [id number] Ferritin, Serum 220 ng/mL (Abnormal) Range: 15-150 53-Frf-033519:27 Albumin/Creatinine Comments: PATIENT WAS FASTINGPERFORMED BY: FreespeeCo Xbmdcl0387 Vaca RoadDublin [place] [id number] BY: [address] [id number] Ratio,Urine Alb/Creat Ratio 5.5 {mg/g_creat} (Normal) Range: 0.0-30.0 Albumin, Urine 9.6 ug/mL (Normal) Creatinine, Urine 176.1 mg/dL (Normal) 96-Apl-075971:27 Vitamin D Hydroxy Comments: PATIENT WAS FASTINGPERFORMED BY: Pointstic Xaoukq6940 [place] [facility] Hospitalblin [place] [id number] BY: Autotask[address] [id number] (11035) Vitamin D, 25-Hydroxy 44.1 ng/mL (Normal) Range: 30.0-100.0 Comments: Vitamin D deficiency has been defined by the [place] ofMer[facility] Health Allen Hospitalcine and an Endocrine Society practice guideline as alevel of serum 25-OH vitamin D less than 20 ng/mL (1,2).The Endocrine Society went on to further define vitamin Dinsufficiency as a level between 21 and 29 ng/mL (2).1. IOM ([place] of Medicine). 2010. Dietary reference intakes for calcium and D. [place]: The National Academies Press.2. Myla MF, Javier STUART, Panfilo MANN, et al. Evaluation, treatment, and prevention of vitamin D deficiency: an Endocrine Society clinical practice guideline. JCEM. 2010; 96(7):1911-30. 92-Qqt-340966:27 HGB A1C (60919) Comments: PATIENT WAS FASTINGPERFORMED BY: Point[employer] Zoizaj7081 [facility] [id number] BY: Autotask[address] [id number] Hemoglobin A1c 5.7 % (Abnormal) Range: 4.8-5.6 Comments: . Pre-diabetes: 5.7 - 6.4 Diabetes: >6.4 Glycemic control for adults with diabetes: <7.0 56-Yql-333541:27 FMRUO-VTMRMAMJTVG-ZAJSI (62551) Comments: PATIENT WAS FASTINGPERFORMED BY: Point[employer] Ipxptc5727 [facility] [id number] BY: Autotask[address] [id number] AFP, Serum, Tumor Marker 4.0 ng/mL (Normal) Range: 0.0-8.3 Comments: Ozzie ECLIA methodology 13-Cpy-645217:27 METABOLIC PANEL, Comments: PATIENT WAS FASTINGPERFORMED BY: Begun Dkgnfj7177 [facility] [id number] BY: LabCo[address] [id number] COMPREHENSIVE (27439) ALT (SGPT) 21 [iU]/L (Normal) Range: 0-32 [...] Glucose, Serum 84 mg/dL (Normal) Range: 65-99 86-Pwu-181369:27 CBC with auto diff Comments: PATIENT WAS FASTINGPERFORMED BY: LabCo Xtdtxy3956 Nola ShepardECU Health [facility] Hospital [id number] BY: LabCo[address] [id number] (21818) Immature Grans (Abs) 0.0 {x10E3/uL} (Normal) Range: [...] 3.77-5.28 WBC 7.7 {x10E3/uL} (Normal) Range: 3.4-10.8 81-Csd-381453:27 LIPID PANEL (59503) Comments: PATIENT WAS FASTINGPERFORMED BY: CB [facility] Cxgdlw8675 [facility] [id number] BY: BN [facility] [address] [id number] LDL/HDL Ratio 1.5 {ratio_units} (Normal) Range: 0.0-3.2 Comments: LDL/HDL Ratio Men Women 1/2 Avg.Risk 1.0 1.5 Av g.Risk 3.6 3.2 2X Avg.Risk 6.2 5.0 3X Avg.Risk 8.0 6.1 LDL Cholesterol Calc 69 mg/dL (Normal) Range: 0-99 VLDL Cholesterol Remington 17 mg/dL (Normal) Range: 5-40 HDL Cholesterol 46 mg/dL (Normal) Triglycerides 85 mg/dL (Normal) Range: 0-149 Cholesterol, Total 132 mg/dL (Normal) Range: 100-199 72-Zom-434092:27 IGA/IGD/IGG/IGM-EACH (60952) Comments: PATIENT WAS FASTINGPERFORMED BY: LabCoAllison Ville 7603470 [facility] [id number] BY: LabChristine Ville 513747 [facility] [id number] Immunoglobulin E, Total 18 {IU/mL} (Normal) Range: 0-100 Immunoglobulin M, Qn, Serum 43 mg/dL (Normal) Range: 26-217 Immunoglobulin A, Qn, Serum 332 mg/dL (Normal) Range: 87-352 Immunoglobulin G, Qn, Serum 848 mg/dL (Normal) Range: 700-1600 6-Zkr-185025:23 METABOLIC PANEL, COMPREHENSIVE Comments: PATIENT NOT FASTINGPERFORMED BY: AutotaskAllison Ville 7603470 [facility] [id number] (95608) ALT (SGPT) 16 [iU]/L (Normal) Range: 0-32 [...] Glucose, Serum 92 mg/dL (Normal) Range: 65-99 :10 RUBEOLA IgG (19490) Comments: PATIENT NOT FASTINGPERFORMED BY: FreespeeMunson Healthcare [facility] Hospital6370 [facility] [id number] Rubeola Ab, IgG 44.9 AU/mL (Normal) Comments: Negative <25.0 Equivocal 25.0 - 29.9 Positive >29.9 Presence of antibodies to Rubeola is presumptive evidence of immunity except when acute infection is suspected. :10 RUBELLA IgG (38937) Comments: PATIENT NOT FASTINGPERFORMED BY: FreespeeCrittenton Behavioral HealthWwmzqo6228 [facility] [id number] Rubella Antibodies, IgG 17.40 {index} (Normal) Comments: Non-immune <0.90 Equivocal 0.90 - 0.99 Immune >0.99 :10 MUMPS IgG (44386) Comments: PATIENT NOT FASTINGPERFORMED BY: FreespeeMunson Healthcare [facility] Hospital6370 [facility] [id number] Mumps Abs, IgG >300.0 AU/mL (Normal) Comments: Negative <9.0 Equivocal 9.0 - 10.9 Positive >10.9 A positive result genera lly indicates past exposure to Mumps virus or previous vaccination. :23 HEPATITIS C ANTIBODY (98063) Comments: PATIENT NOT FASTINGPERFORMED BY: [facility]6370 [facility] [id number] Hep C Virus Ab 0.1 {s/co_ratio} (Normal) Range: 0.0-0.9 Comments: Negative: < 0.8 Indeterminate: 0.8 - 0.9 Positive: > 0.9 . The CDC recommends that a positive HCV antibody result be followed up with a HCV Nucleic Acid Amplification test (693499). :07 AFP, Tumor Marker Comments: Is Patient ? [facility] (refer to report for specific site)refer to report for address and phone number AFP TUMOR 2253 3.9 ng/mL (Normal) Range: 0.0-8.3 Comments: Ozzie ECLIA methodologyPerformed at: - [facility] [address] [id number] Director: Harjinder Houston PhD, Phone: [phone] 32-Ovb-428967:07 Comprehensive Metabolic Profil Comments: [facility] Etlfyliqhu0686 [address]. [place], [place], [address] GAP 6 (Normal) Range: 5-15 CO2 27.0 [...] 7-18 GLU 80 mg/dL (Normal) Range: 70-110 43-Kst-612947:07 Hemoglobin A1c Comments: [facility] Ondvnjicsj1695 ADONAY [place], [address] HGB A1C 5.9 % (Normal) Range: 4.2-6.3 99-Rhb-522340:07 Lipid Profile Comments: [facility] Jcampzqxyw9245 ADONAY Snell, [id number] VLDL 18 mg/dL (Normal) Range: 5-40 LDL [...] 200-240 mg/dL Borderline >240 mg/dL High Risk 35-Msj-007000:07 Thyroid Stim Hormone (TSH) Comments: [facility] Iilpeharql2478 [place], [address] TSH 1.11 {uIU/mL} (Normal) Range: 0.358-3.74 77-Bfg-275743:07 Vitamin B12 401 pg/mL (Normal) Comments: [facility] Agaoajspzg8739 ADONAY Snell, [id number] Range: 211-911 67-Xjb-907358:07 Vitamin D,25 Hydroxy Comments: [facility] Wnhykgjruz4292 ADONAY Snell, [id number] Vitamin D 25-OH 37.7 ng/mL (Normal) Comments: Vitamin D 25(OH) Status Range Deficiency <20 ng/mL (50nmol/L) Insuffciency 20 - 30 ng/mL (50 - 75 nmol/L) Sufficiency 30 - 100 ng/mL (75 - 250 nmol/L) Toxicity >100 ng/mL (>250 nmol/L) :54 TSH (49525) Comments: PATIENT WAS FASTINGPERFORMED BY: LabCo Fogxzo1277 [address] RoadDublin [place] [id number] TSH 1.440 {uIU/mL} (Normal) Range: 0.450-4.500 :54 VITAMIN B-12 (CYANOCOBALAMIN) Comments: PATIENT WAS FASTINGPERFORMED BY: LabCo Thgzkq8766 [address] RoadDublin [place] [id number] (20168) Vitamin B12 273 pg/mL (Normal) Range: 211-946 :47 Vitamin D Hydroxy Comments: PATIENT WAS FASTINGPERFORMED BY: Autotask[address] [id number] BY: Autotask Kkocgt3344 [place] [facility] CenterD[facility] [place] [id number] (95981) Vitamin D, 25-Hydroxy 29.6 ng/mL (Abnormal) Range: 30.0-100.0 Comments: Vitamin D deficiency has been defined by the [place] ofMedicine and an Endocrine Society practice guideline as alevel of serum 25-OH vitamin D less than 20 ng/mL (1,2).The Endocrine Society went on to further define vitamin Dinsufficiency as a level between 21 and 29 ng/mL (2).1. IOM ([place] of Medicine). 2010. Dietary reference intakes for calcium and D. [place]: The National Academies Press.2. Myla MF, Javier STUART, Panfilo MANN, et al. Evaluation, treatment, and prevention of vitamin D deficiency: an Endocrine Society clinical practice guideline. JCEM. 2010; 96(7):1911-30. :47 METABOLIC PANEL, Comments: PATIENT WAS FASTINGPERFORMED BY: Autotask[address] [id number] BY: Autotask Etyxaq5935 [place] [facility] CenterDublin [place] [id number] COMPREHENSIVE (61285) ALT (SGPT) 21 [iU]/L (Normal) Range: 0-32 [...] Glucose, Serum 87 mg/dL (Normal) Range: 65-99 3-Pse-916570:47 LIPOPROTEIN, BLD, BY NMR Comments: PATIENT WAS FASTINGPERFORMED BY: BN [facility] [address] [id number] BY: CB [facility] [address] [id number] Information: [id number], 703703 (56946) LP-IR Score 69 (Abnormal) Comments: INSULIN RESISTANCE MARKER <--Insulin Sensitive Insulin Resistant--> Percentile in Reference PopulationInsulin Resistance ScoreLP-IR Score Low 25th 50th 75th High <27 27 45 63 >63LP-IR Score is inaccurate if patient is non-fasting. .The LP-IR score is a laboratory developed i [facility] that has beenassociated with insulin [...] 1600 - 2000 Very High > 2000 :47 MICROALBUMIN: CREATININE Comments: PATIENT WAS FASTINGPERFORMED BY: AutotaskChristopher Ville 081257 [facility] [id number] BY: [facility]6370 [facility] [id number] RATIO (62094) AND (12179) Microalb/Creat Ratio 10.3 {mg/g_creat} (Normal) Range: 0.0-30.0 Microalbumin, Urine 16.3 ug/mL (Normal) Creatinine, Urine 157.7 mg/dL (Normal) :47 HGB A1C (08196) Comments: PATIENT WAS FASTINGPERFORMED BY: Autotask[address] [id number] BY: [facility] Hospital - CincinnatiOYE![facility] ElmerLppqsy0467 [facility] [id number] Hemoglobin A1c 6.1 % (Abnormal) Range: 4.8-5.6 Comments: . Pre-diabetes: 5.7 - 6.4 Diabetes: >6.4 Glycemic control for adults with diabetes: <7.0 :4 ASPIRATION (SLIDES ONLY) See Note (Normal) Comments: [facility] Jpgqujxxvw7467 [place], [address] 5 Comments: Patient: AMY VALDOVINOS : 1965 (51/F) Acct Num: [id number] Phys: Devorah DÍAZ,Richar Unit Num: [id number] Loc: LABSPEC Specimen: [id number] Received: 10/07/16 - 1206 Spec Type: ASPIRATION TISSUES TISSUES: COMMENT The specimen is paucicellular and contains rare benign follicular cells and focal chronic inflammatory cells. Clinical correlation is suggested. CYTOLOGY GROSS Received are eight smears labeled with the patient's name and designated per therequisition as FNA left thyroid. Submitted for staining. 10/07/16 TC:5 CPT: 70735 CYTOLOGY STUDY Slides are reviewed. DIAGNOSIS CYTOLOGY Fine needle aspiration, left thyroid nodule (smears): Negative, consistent with colloid nodule. AM:cecil 10/10/16 HEADER OPERATION: Ult rasound-guided fine needle aspiration, left thyroid PRE-OP DIAGNOSIS: Multinodular goiter E04.2 TISSUE SUBMITTED: Fine needle aspiration, left thyroid (8 slides) Signed Enio Madhuri 10/10/16 <signature on file> 5-Oxy-022631:56 UOGTI-ZFUHEHEGSTK-PFGZI (16528) Comments: PATIENT WAS FASTINGPERFORMED BY: Rankomat.pl[address] [id number] BY: [employer]70 [address] RoadDublin [place] [id number] AFP, Serum, Tumor Marker 3.2 ng/mL (Normal) Range: 0.0-8.3 Comments: Ozzie ECLIA methodology 8-Bbg-713042:56 VITAMIN B-12 (CYANOCOBALAMIN) Comments: PATIENT WAS FASTINGPERFORMED BY: Rankomat.plton1447 [facility] [id number] BY: [employer]6370 [address] RoadDublin [place] [id number] (54095) Vitamin B12 302 pg/mL (Normal) Range: 211-946 2-Ncn-421805:56 Vitamin D Hydroxy Comments: PATIENT WAS FASTINGPERFORMED BY: Rankomat.pl[address] [id number] BY: HeatGearlin6370 [address] RoadDublin [place] [id number] (65958) Vitamin D, 25-Hydroxy 25.1 ng/mL (Abnormal) Range: 30.0-100.0 Comments: Vitamin D deficiency has been defined by the [place] ofMedicine and an Endocrine Society practice guideline as alevel of serum 25-OH vitamin D less than 20 ng/mL (1,2).The Endocrine Society went on to further define vitamin Dinsufficiency as a level between 21 and 29 ng/mL (2).1. IOM ([place] of Medicine). 2010. Dietary reference intakes for calcium and D. [place]: The National Academies Press.2. Holick MF, Javier NC, Panfilo MANN, et al. Evaluation, treatment, and prevention of vitamin D deficiency: an Endocrine Society clinical practice guideline. JCEM. 2010; 96(7):1911-30. 4-Tat-473867:56 CBC W/AUTO DIFF WBC Comments: PATIENT WAS FASTINGPERFORMED BY: BN [facility] Grpflwcrft0138 [facility] [id number] BY: CB [facility] Cekwlz2686 [facility] [id number] (45494) Immature Grans (Abs) 0.0 {x10E3/uL} (Normal) Range: [...] 3.77-5.28 WBC 9.9 {x10E3/uL} (Normal) Range: 3.4-10.8 2-Zdo-744754:56 METABOLIC PANEL, Comments: PATIENT WAS FASTINGPERFORMED BY: LabOYE![address] [id number] BY: LabOYE![facility] ElmerZdgcmx6192 [facility] [id number] COMPREHENSIVE (22350) ALT (SGPT) 18 [iU]/L (Normal) Range: 0-32 [...] Glucose, Serum 89 mg/dL (Normal) Range: 65-99 8-Rut-350295:56 LIPOPROTEIN, BLD, BY NMR Comments: PATIENT WAS FASTINGPERFORMED BY: Autotask[address] [id number] BY: LabMunson [facility] Hospital6370 [facility] [id number] (93921) LP-IR Score 66 (Abnormal) Comments: INSULIN RESISTANCE MARKER <--Insulin Sensitive Insulin Resistant--> Percentile in Reference PopulationInsulin Resistance ScoreLP-IR Score Low 25th 50th 75th High <27 27 45 63 >63LP-IR Score is inaccurate if patient is non-fasting. .The LP-IR score is a laboratory developed i [facility] that has beenassociated with insulin [...] were developed and their performance characteristicsdetermined by [employer]. These assays have not been cleared by [...] 1600 - 2000 Very High > 2000 9-Eeh-071251:10 HgA1C , Office (30147) HgA1C , Office 5.8 % (Normal) Range: 4.6 - 7.1 5-Ioh-252745:10 Blood Glucose , Office (14021) Blood Glucose , Office 80 (Normal) 14-Lez-015827:18 Magnesium (17350) Comments: PATIENT NOT FASTINGPERFORMED BY: [employer] [facility] [id number] Magnesium, Serum 2.3 mg/dL (Normal) Range: 1.6-2.3 :35 XAJWO-RFRRVXYAUQN-PYJRV (58101) Comments: PATIENT WAS FASTINGPERFORMED BY: [employer]6370 [facility] [id number] AFP, Serum, Tumor Marker 3.0 ng/mL (Normal) Range: 0.0-8.3 Comments: Ozzie ECLIA methodology :35 CBC W/AUTO DIFF WBC Comments: PATIENT WAS FASTINGPERFORMED BY: BeTheBeastlin6370 [facility] [id number] Information: [id number] (31159) Immature Grans (Abs) 0.0 {x10E3/uL} (Normal) Range: [...] 3.77-5.28 WBC 7.4 {x10E3/uL} (Normal) Range: 3.4-10.8 26-Lsj-76551:35 METABOLIC PANEL, COMPREHENSIVE Comments: PATIENT WAS FASTINGPERFORMED BY: [facility] ElmerYjoiam0891 [facility] [id number] (26538) ALT (SGPT) 14 [iU]/L (Normal) Range: 0-32 [...] Glucose, Serum 83 mg/dL (Normal) Range: 65-99 38-Xjh-121142:10 CBC W/AUTO DIFF WBC Comments: PATIENT WAS FASTINGPERFORMED BY: [facility] ElmerRulfvm7931 [facility] [id number] Information: [id number] (84452) Immature Grans (Abs) 0.0 {x10E3/uL} (Normal) Range: [...] 3.77-5.28 WBC 7.1 {x10E3/uL} (Normal) Range: 3.4-10.8 47-Fvr-200005:10 METABOLIC PANEL, COMPREHENSIVE Comments: PATIENT WAS FASTINGPERFORMED BY: [facility] ElmerHrmfvl8285 [facility] [id number] (39415) ALT (SGPT) 14 [iU]/L (Normal) Range: 0-32 [...] Glucose, Serum 79 mg/dL (Normal) Range: 65-99 53-Skm-843787:10 TSH (54171) Comments: PATIENT WAS FASTINGPERFORMED BY: [facility] ElmerNwcbre3548 [facility] [id number] TSH 0.891 {uIU/mL} (Normal) Range: 0.450-4.500 80-Mmd-489812:10 LIPID PANEL (24229) Comments: PATIENT WAS FASTINGPERFORMED BY: [facility] Yexvga6312 [facility] CenterGilmer[facility]imi [place] [id number] LDL/HDL Ratio 2.0 {ratio_units} Range: 0.0-3.2 (Normal) [...] ONLY) See Note (Normal) Comments: [facility] [address] [place], [address] :50 Comments: Patient: AMY VALDOVINOS : 1965 (50/F) Acct Num: [id number] Phys: Devorah DÍAZ,Richar Unit Num: [id number] Loc: [facility] Specimen: [id number] Received: 12/15/15 - [...] colloid nodule. See cytology study and comment. MIIN:cecil 12/16/15 HEADER OPERATION: US guided FNA right thyroid PRE-OP DIAGNOSIS : E04.2 multinodular goiter TISSUE SUBMITTED: Slides from right thyroid FNA Signed Alexis Levi 12/16/15 <signature on file> :19 TSH (50056) Comments: PATIENT NOT FASTINGPERFORMED BY: [facility] Ixuwfs4946 [address] [place] [id number] TSH 1.250 {uIU/mL} (Normal) Range: 0.450-4.500 28-Dof-382882:19 T4, FREE (THYROXINE) Comments: PATIENT NOT FASTINGPERFORMED BY: [facility] Qrtltq6795 [address] [facility] [place] [id number] Information: [id number] (31691) T4,Free(Direct) 1.12 ng/dL (Normal) Range: 0.82-1.77 :19 T3, FREE (TRIDOTHYRONINE) (39148) Comments: PATIENT NOT FASTINGPERFORMED BY: [facility] Alcmbu7808 [address] [facility] [place] [id number] Triiodothyronine,Free,Serum 3.3 pg/mL (Normal) Range: 2.0-4.4 90-Uow-491499:15 SED RATE ERYTHROCYTE (10444) Comments: PATIENT NOT FASTINGPERFORMED BY: [facility] Iftwke1094 [address] [facility] [place] [id number] Sedimentation Rate-Westergren 6 mm/h (Normal) Range: 0-40 51-Zly-859739:15 C-REACTIVE PROTEIN (45931) Comments: PATIENT NOT FASTINGPERFORMED BY: [facility] Pxzjxq8021 [address] [facility] [place] [id number] C-Reactive Protein, Quant 3.9 mg/L (Normal) Range: 0.0-4.9 90-Wvk-648561:15 METABOLIC PANEL, COMPREHENSIVE Comments: PATIENT NOT FASTINGPERFORMED BY: [facility] Hocrtl5198 [address] [facility] [place] [id number] (24908) ALT (SGPT) 35 [iU]/L (Abnormal) Range: 0-32 [...] Glucose, Serum 76 mg/dL (Normal) Range: 65-99 08-Zgn-931538:15 EBV Panel (90957) Comments: PATIENT NOT FASTINGPERFORMED BY: [facility]6370 [facility] [id number] Interpretation: [facility] (Normal) Comments: EBV Interpretation Chart . Interpretation [...] <36.0 Equivocal 36.0 - 43.9 Positive >43.9 64-Lus-405199:15 CBC, PLATELETS & MANUAL Comments: PATIENT NOT FASTINGPERFORMED BY: [facility] ElmerApwxgp7953 [facility] [id number] Information: [id number] DIFF (60886) Immature Grans (Abs) 0.0 {x10E3/uL} (Normal) Range: [...] 3.77-5.28 WBC 8.8 {x10E3/uL} (Normal) Range: 3.4-10.8 33-Pke-095590:00 CBC with auto diff Comments: PERFORMED BY: CHUY [facility]askIn[facility] ElmerExlyyq0267 [facility] [id number] Information: NURSE DRAW (41539) Immature Grans (Abs) 0.0 {x10E3/uL} (Normal) Range: [...] 3.77-5.28 WBC 8.6 {x10E3/uL} (Normal) Range: 3.4-10.8 :00 METABOLIC PANEL, COMPREHENSIVE Comments: PERFORMED BY: [facility]reespeeCoIn[facility] ElmerBrtoep3640 [facility] [id number] (22195) ALT (SGPT) 19 [iU]/L (Normal) Range: 0-32 [...] Glucose, Serum 93 mg/dL (Normal) Range: 65-99 43-Xes-660398:00 RSVAN-MKINFSIHHJI-OBBMN (22037) Comments: PERFORMED BY: CHUY Local Dirt6370 [facility] [id number] AFP, Serum, Tumor Marker 3.2 ng/mL (Normal) Range: 0.0-8.3 Comments: Ozzie ECLIA methodology 58-Plz-890535:28 HgA1C , Office (81105) HgA1C , Office 5.9 % (Normal) Range: 4.6 - 7.1 3-Bbc-956281:22 URINE KENROY CULTURE-JUAN COL Comments: PATIENT NOT FASTINGPERFORMED BY: CHUY [facility] ElmerSlodwg4601 [facility] [id number] Information: SRC:[facility] [place] [id number] COUNT (40194) Result 1 NG36 (Normal) Comments: No growth in 36 - 48 hours. Urine Culture,Comprehensive Final report (Normal) 3-Jdf-108955:36 Urinalysis, Office (85184) UA - LEUKOCYTE ESTERASE Small (Normal) UA - NITRITE Negative (Normal) URINE UROBILINGN JUAN TIMED Normal mg/dL (Normal) UA - PROTEIN Negative mg/dL (Normal) UA - PH 6.5 (Normal) UA - BLOOD Negative (Normal) UA - SPECIFIC GRAVITY 1.005 (Normal) UA - KETONES Negative mg/dL (Normal) UA - BILIRUBIN Negative (Normal) UA - GLUCOSE Negative (Normal) 61-Jse-740885:04 CBC W/AUTO DIFF WBC Comments: PATIENT WAS FASTINGPERFORMED BY: [facility] Lwyhmi6702 [facility] [id number] Information: [id number] (74327) Immature Grans (Abs) 0.0 {x10E3/uL} (Normal) Range: [...] 3.77-5.28 WBC 8.2 {x10E3/uL} (Normal) Range: 3.4-10.8 :04 METABOLIC PANEL, COMPREHENSIVE Comments: PATIENT WAS FASTINGPERFORMED BY: [facility] ElmerFkggut3409 [facility] [id number] (04834) ALT (SGPT) 20 [iU]/L (Normal) Range: 0-32 [...] Glucose, Serum 74 mg/dL (Normal) Range: 65-99 65-Kzq-879563:04 LIPID PANEL (92419) Comments: PATIENT WAS FASTINGPERFORMED BY: [facility]6370 [facility] [id number]; [address] LDL/HDL Ratio 2.1 {ratio_units} Range: [...] ng/mL (Normal) Comments: PATIENT WAS FASTINGPERFORMED BY: [facility]6370 [facility] [id number] 59:38 Marker Range: 0.0-8.3 Comments: Ozzie ECLIA methodology 48-Eqa-33737:38 CBC With Differential/Platelet Comments: PATIENT WAS FASTINGPERFORMED BY: [facility]6370 [facility] [id number] Information: [id number] Immature Grans (Abs) 0.0 {x10E3/uL} (Normal) Range: [...] PATIENT WAS FASTINGPERFORMED BY: [facility] ElmerAzapgr9792 [facility] [id number] ALT (SGPT) 13 [iU]/L (Normal) Range: 0-32 [...] % (Abnormal) Comments: PATIENT WAS FASTINGPERFORMED BY: [facility] [place] [id number]; f/u on 02/06 38 Range: 4.8-5.6 Comments: . Increased risk for diabetes: 5.7 - 6.4 Diabetes: >6.4 Glycemic control for adults with diabetes: <7.0 :38 Lipid Panel With LDL/HDL Comments: PATIENT WAS FASTINGPERFORMED BY: [facility]At[facility] [id number] Ratio LDL/HDL Ratio 3.1 {ratio_units} (Normal) Range: [...] Randm Ur Comments: PATIENT WAS FASTINGPERFORMED BY: [facility]illationAt[facility] [id number] Microalb/Creat Ratio 19.0 {mg/g_creat} Range: 0.0-30.0 (Normal) Microalbumin, Urine 23.5 ug/mL (Abnormal) Range: 0.0-17.0 Creatinine, Urine 124.0 mg/dL (Normal) Range: 15.0-278.0 05-Feb-2015 Vitamin D, 25-Hydroxy 32.7 ng/mL (Normal) Comments: PATIENT WAS FASTINGPERFORMED BY: [facility] Nlpimn8568 [address] Cu[address] [place] [id number] 9:38 Range: 30.0-100.0 Comments: Vitamin D deficiency has been defined by the [place] ofMedicine and an Endocrine Society practice guideline as alevel of serum 25-OH vitamin D less than 20 ng/mL (1,2).The Endocrine Society went on to further define vitamin Dinsufficiency as a level between 21 and 29 ng/mL (2).1. IOM ([place] of Medicine). 2010. Dietary reference intakes for calcium and D. [place]: The National Academies Press.2. Myla MF, Javier NC, Panfilo MANN, et al. Evaluation, treatment, and prevention of vitamin D deficiency: an Endocrine Society clinical practice guideline. JCEM. 2010; 96(7):1911-30. 66-Rpd-103285:49 Comprehensive Metabolic Profil Comments: STAT CREATININE FOR MRITest performed at:[facility] Bshhsnhqqu[address] [place], [place] [id number] ; Afua GAP 3 (Abnormal) Range: 5-15 CO2 30.0 [...] 7-18 GLU 82 mg/dL (Normal) Range: 70-110 84-Nzj-924234:49 Hemoglobin A1c Comments: Test performed at:[facility] Nabdbvvvrb0374 [facility] [place] [address] HGB A1C 5.7 % (Normal) Range: 4.2-6.3 :49 Lipid Profile Comments: STAT CREATININE FOR MRITest performed at:[facility] Qsfdoqpjjk[address] [facility] [place] [address] VLDL 25 mg/dL (Normal) Range: [...] 200-240 mg/dL Borderline >240 mg/dL High Risk 07-Ylm-104309:49 Vitamin D,25 Hydroxy Comments: Test performed at:[facility] Gafpupxhow4547 [facility] [place] [address] Vitamin D 25-OH 76.3 ng/mL (Normal) Comments: Vitamin D 25(OH) Status Range Deficiency <20 ng/mL (50nmol/L) Insuffciency 20 - 30 ng/mL (50 - 75 nmol/L) Sufficiency 30 - 100 ng/mL (75 - 250 nmol/L) Toxicity >100 ng/mL (>250 nmol/L) 6-Mht-430130:15 Culture, Urine Comments: Test performed at:[facility] [address]ynw[address] [place] [address] CUUR See Note (Normal) Comments: Urine CultureORGANISM 1: Mixed Gram Positive OrganismsColony Count 11,000-25,000MIX CONTAM Mixed Contaminants. Submit new specimen if indicated. 6-Ioj-235667:23 Lipid Panel (49335) Comments: PATIENT WAS FASTINGPERFORMED BY: LabOYE![facility] ElmerTqgliw0890 [facility] [id number] LDL/HDL Ratio 2.9 {ratio_units} (Normal) Range: 0.0-3.2 [...] Cholesterol, Total 164 mg/dL (Normal) Range: 100-199 3-Ihg-553671:23 Metabolic Panel, Comments: PATIENT WAS FASTINGPERFORMED BY: LabOYE![facility] ElmerOyhnuk7189 [facility] [id number] Information: [id number] Comprehensive (98893) ALT (SGPT) 24 [iU]/L (Normal) Range: 0-32 [...] Glucose, Serum 94 mg/dL (Normal) Range: 65-99 10-Lcn-051464:49 CALCIFEDIOL (41360) Comments: PATIENT NOT FASTINGPERFORMED BY: [facility] ElmerRkskij0025 [facility] [id number] Vitamin D, 25-Hydroxy 18.9 ng/mL (Abnormal) Range: 30.0-100.0 Comments: Vitamin D deficiency has been defined by the [place] ofMer[facility] Health [facility] Hospitalcine and an Endocrine Society practice guideline as alevel of serum 25-OH vitamin D less than 20 ng/mL (1,2).The Endocrine Society went on to further define vitamin Dinsufficiency as a level between 21 and 29 ng/mL (2).1. IOM ([place] of Medicine). 2010. Dietary reference intakes for calcium and D. [place]: The National Academies Press.2. Myla MF, Javier NC, Panfilo MANN, et al. Evaluation, treatment, and prevention of vitamin D deficiency: an Endocrine Society clinical practice guideline. JCEM. 2010; 96(7):1911-30. 10-Rvo-443496:52 Hemoglobin A1c Comments: Test performed at:[facility] [address] [place] [address] HGB A1C 6.4 % (Abnormal) Range: 4.2-6.3 83-Ngq-507406:52 Lipid Profile Comments: Test performed at:[facility] Bjib[address]uhiy[address] [place] [address] VLDL 35 mg/dL (Normal) Range: [...] 200-240 mg/dL Borderline >240 mg/dL High Risk 67-Chb-938500:52 Liver Profile Comments: Test performed at:[facility] Rasfmdwcoq9918 [facility] [place] [facility] [place] [address] D BILI 0.10 mg/dL (Normal) Range: 0.00-0.30 T BILI 0.50 mg/dL (Normal) Range: 0.00-4.00 ALT 43 U/L (Normal) Range: 12-78 ALK P 92 U/L (Normal) Range: 50-136 AST 18 U/L (Normal) Range: 15-37 GLOB 3.5 g/dL (Normal) Range: 2.7-4.2 ALB 4.0 g/dL (Normal) Range: 3.4-5.0 T PROT 7.5 g/dL (Normal) Range: 6.4-8.2 52-Fbc-875435:50 Serum Creatinine AND GFR Comments: Has pt arrived? YTest performed at:[facility] Jbygdwkqoq7547 [facility] [place] [address] EST GFR - AA 86 mL/min (Normal) EST GFR 71 mL/min (Normal) CREAT,SERUM 0.9 mg/dL (Normal) Range: 0.6-1.0 94-Iqs-225613:38 Hepatic Function Panel Comments: PATIENT WAS FASTINGPERFORMED BY: [facility] ElmerScpfwa6614 [facility] [id number] Information: [id number] (7) ALT (SGPT) 36 [iU]/L (Abnormal) Range: 0-32 AST (SGOT) 23 [iU]/L (Normal) Range: 0-40 Alkaline Phosphatase, S 107 [iU]/L (Normal) Range: 39-117 Bilirubin, Direct 0.13 mg/dL (Normal) Range: 0.00-0.40 Bilirubin, Total 0.3 mg/dL (Normal) Range: 0.0-1.2 Albumin, Serum 4.7 g/dL (Normal) Range: 3.5-5.5 Protein, Total, Serum 7.3 g/dL (Normal) Range: 6.0-8.5 01-Jul-2014 Written Authorization WAR (Normal) Comments: PATIENT WAS FASTINGPERFORMED BY: [employer] Adbojt1060 [facility] [id number] 13:38 Comments: Written Authorization Received.Authorization received from GEORGE OSCAR LPN [id number] by Sandrita Onofre 02-Rrw-791433:38 CALCIFEDIOL (37084) Comments: PATIENT WAS FASTINGPERFORMED BY: [employer] Vwtoge1769 [facility] [place] [id number] Vitamin D, 25-Hydroxy 30.1 ng/mL (Normal) Range: 30.0-100.0 Comments: Vitamin D deficiency has been defined by the [place] of[place]icine and an Endocrine Society practice guideline as alevel of serum 25-OH vitamin D less than 20 ng/mL (1,2).The Endocrine Society went on to further define vitamin Dinsufficiency as a level between 21 and 29 ng/mL (2).1. IOM ([place] of [place]). 2010. Dietary reference intakes for calcium and D. [place]: The National Academies Press.2. Myla MF, Javier NC, Katlyn-Cem MANN, et al. Evaluation, treatment, and prevention of vitamin D deficiency: an Endocrine Society clinical practice guideline. JCEM. 2010; 96(7):1911-30. 54-Jrb-300140:38 LIPID PANEL (26390) Comments: PATIENT WAS FASTINGPERFORMED BY: [facility] Acdyke1079 [facility] [id number] Information: [id number] LDL/HDL Ratio 4.2 {ratio_units} (Abnormal) Range: 0.0-3.2 [...] Cholesterol, Total 224 mg/dL (Abnormal) Range: 100-199 38-Fny-135884:49 HEPATIC FUNCTION PANEL Comments: PATIENT NOT FASTINGPERFORMED BY: [facility] DigitalEC[facility] [id number] Information: [id number] (60671) ALT (SGPT) 193 [iU]/L (Abnormal) Range: 0-32 AST (SGOT) 43 [iU]/L (Abnormal) Range: 0-40 Alkaline Phosphatase, S 135 [iU]/L (Abnormal) Range: 39-117 Bilirubin, Direct 0.18 mg/dL (Normal) Range: 0.00-0.40 Bilirubin, Total 0.3 mg/dL (Normal) Range: 0.0-1.2 Albumin, Serum 4.1 g/dL (Normal) Range: 3.5-5.5 Protein, Total, Serum 6.7 g/dL (Normal) Range: 6.0-8.5 97-Rkp-232039:49 HEPATITIS PANEL (20088) Comments: PATIENT NOT FASTINGPERFORMED BY: [facility] Hrwczq2437 [facility] [id number] Hep C Virus Ab <0.1 {s/co_ratio} (Normal) Range: 0.0-0.9 Comments: Negative: < 0.8 Indeterminate: 0.8 - 0.9 Positive: > 0.9 . In order to reduce the incidence of a false positive result, the CDC recommends that all s/co ratios between 1.0 and 10.9 be confirmed by a more specific supplemental or PCR testing. [facility]Western [facility] offers HCV Ab w/Reflex to Verification test #[id number]. Hep B Core Ab, IgM Negative (Normal) HBsAg Screen Negative (Normal) Hep A Ab, IgM Negative (Normal) 88-Hsx-906483:49 ANTIMITOCHONDRIAL ANTIBODY Comments: PATIENT NOT FASTINGPERFORMED BY: [facility]6370 [facility] [id number] (82239) Atypical pANCA <1:20 {titer} (Normal) Comments: The [...] follow up testing ofpositive sera with both CA-3 and MPO- ANCA enzyme immunoassays. Asmany as 5% serum samp les are positive only by EIA.Ref. AM J Clin Pathol 1999;111:507-513. Cytoplasmic (C-ANCA) <1:20 {titer} (Normal) 32-Zpv-327262:49 TRANSFERRIN (00417) Comments: PATIENT NOT FASTINGPERFORMED BY: [facility]6370 [facility] [id number] Transferrin 259 mg/dL (Normal) Range: 200-370 65-Zob-092806:49 GGT (GAMMA GLUTAMYLTRANSFERASE) Comments: PATIENT NOT FASTINGPERFORMED BY: [facility]6370 [facility] [id number] (45330) GGT 385 [iU]/L (Abnormal) Range: 0-60 98-Dsz-972842:49 FERRITIN (44367) Comments: PATIENT NOT FASTINGPERFORMED BY: [facility]6370 [facility] [id number] Ferritin, Serum 447 ng/mL (Abnormal) Range: 15-150 58-Gux-352447:49 CMV IGM ANTBDY (74042) Comments: PATIENT NOT FASTINGPERFORMED BY: [facility]6370 [facility] [id number] Cytomegalovirus (CMV) Ab, IgM <30.0 AU/mL (Normal) Range: 0.0-29.9 Comments: Negative <30.0 Equivocal 30.0 - 34.9 Positive >34.9 A positive result is generally indicative of acute infection, reactivation or persistent IgM production. 47-Kfw-530966:49 CERULOPLASMIN (00950) Comments: PATIENT NOT FASTINGPERFORMED BY: [facility]6370 [facility] [id number] Ceruloplasmin 29.9 mg/dL (Normal) Range: 16.0-45.0 32-Srm-559818:49 ASM (ANTI SMOOTH MUSCLE Comments: PATIENT NOT FASTINGPERFORMED BY: [facility]reespeeKathleen [place] 2261870 [facility] [id number] ANTIBODY) (17538) Actin (Smooth Muscle) Antibody 5 {Units} (Normal) Range: 0-19 Comments: Negative 0 - 19 Weak positive 20 - 30 Moderate to strong positive >30 . Actin Antibodies are found in 52-85% of patients with autoimmune hepatitis or chronic active hepatitis and in 22% of patients with primary biliary cirrhosis. 72-Lrp-970277:49 ANTI-LIVER/KIDNEY MICROSOMAL Comments: PATIENT NOT FASTINGPERFORMED BY: [facility]6370 [facility] [id number] ANTIBODY (33170) Thyroid Peroxidase (TPO) Ab 9 {IU/mL} (Normal) Range: 0-34 26-Cpz-433611:49 LOLITA (ANTINUCLEAR ANTIBODY) Comments: PATIENT NOT FASTINGPERFORMED BY: [facility]6370 [facility] [id number] (16573) LOLITA Direct Negative (Normal) 13-Rqj-425752:49 TSH (08445) Comments: PATIENT NOT FASTINGPERFORMED BY: [facility]peeKathleen [place] 2261870 [facility] [id number] TSH 1.520 {uIU/mL} (Normal) Range: 0.450-4.500 76-Ozt-632684:49 T4, FREE (THYROXINE) (76306) Comments: PATIENT NOT FASTINGPERFORMED BY: CB [facility] Wbhmfq9838 [address] RoadDublin [place] [id number] T4,Free(Direct) 0.97 ng/dL (Normal) Range: 0.82-1.77 47-Pvp-810489:49 T3, FREE (TRIDOTHYRONINE) (32319) Comments: PATIENT NOT FASTINGPERFORMED BY: CB [facility] Fiwlow2215 [address] RoadDublin [place] [id number] Triiodothyronine,Free,Serum 3.2 pg/mL (Normal) Range: 2.0-4.4 88-Jqk-742029:23 Throat Culture (77574) Comments: PATIENT NOT FASTINGPERFORMED BY: CB [facility] Qrnyja3202 [address]aca RoadDublin [place] [id number] Information: SRC:THRT [id number] Result 1 RRF (Normal) Comments: Routine respiratory edith Upper Respiratory Culture Final report (Normal) 51-Rwl-66430:36 Rapid Strep Test, Office (27293) Rapid Strep Test, Office Negative (Normal) :38 CALCIFEDIOL (39682) Comments: PATIENT WAS FASTINGPERFORMED BY: CB [facility] Sntqqy8186 [address] [facility] CenterD[facility] [place] [id number] Vitamin D, 25-Hydroxy 16.2 ng/mL (Abnormal) Range: 30.0-100.0 Comments: Vitamin D deficiency has been defined by the [place] ofMedicine and an Endocrine Society practice guideline as alevel of serum 25-OH vitamin D less than 20 ng/mL (1,2).The Endocrine Society went on to further define vitamin Dinsufficiency as a level between 21 and 29 ng/mL (2).1. IOM ([place] of Medicine). 2010. Dietary reference intakes for calcium and D. [place]: The National Academies Press.2. Myla MF, Javier NC, Panfilo MANN, et al. Evaluation, treatment, and prevention of vitamin D deficiency: an Endocrine Society clinical practice guideline. JCEM. 2010; 96(7):1911-30. :38 Lipid Panel (53009) Comments: PATIENT WAS FASTINGPERFORMED BY: CB [facility] Qwcayl0778 [facility] [id number] Information: [id number] LDL/HDL Ratio 3.8 {ratio_units} (Abnormal) Range: 0.0-3.2 [...] FUNCTION PANEL Comments: PATIENT WAS FASTINGPERFORMED BY: HeatGearlin6370 [facility] [id number] (07303) ALT (SGPT) 446 [iU]/L (Abnormal) Range: 0-32 AST (SGOT) 119 [iU]/L (Abnormal) Range: 0-40 Alkaline Phosphatase, S 176 [iU]/L (Abnormal) Range: 39-117 Bilirubin, Direct 0.59 mg/dL (Abnormal) Range: 0.00-0.40 Bilirubin, Total 1.2 mg/dL (Normal) Range: 0.0-1.2 Albumin, Serum 4.2 g/dL (Normal) Range: 3.5-5.5 Protein, Total, Serum 7.0 g/dL (Normal) Range: 6.0-8.5 11-Bvo-429960:24 Metabolic Panel, Comprehensive Comments: PATIENT NOT FASTINGPERFORMED BY: HeatGearlin6370 [facility] [id number] (37868) ALT (SGPT) 40 [iU]/L (Abnormal) Range: 0-32 [...] Glucose, Serum 108 mg/dL (Abnormal) Range: 65-99 80-Eaz-350222:24 CBC, Platelets & Auto Comments: PATIENT NOT FASTINGPERFORMED BY: [facility] Uczazm3209 [facility] [id number] Information: [id number] Diff (10623) Immature Grans (Abs) 0.0 {x10E3/uL} (Normal) Range: [...] 3.77-5.28 WBC 10.1 {x10E3/uL} (Normal) Range: 3.4-10.8 93-Pth-642135:09 URINE KENROY CULTURE-IDENTIFICATN Comments: PATIENT NOT FASTINGPERFORMED BY: [facility] DiagnosticsAt[facility] [id number] Information: [id number] (47048) Result 1 MUG (Normal) Comments: Mixed urogenital flora1,000 Colonies/mL Urine Culture,Comprehensive Final report (Normal) 90-Phj-367096:21 Urinalysis, Office (54100) UA - LEUKOCYTE ESTERASE Trace (Normal) UA - NITRITE Negative (Normal) URINE UROBILINGN JUAN TIMED Normal mg/dL (Normal) UA - PROTEIN Negative mg/dL (Normal) UA - PH 6 (Abnormal) UA - BLOOD Negative (Normal) UA - SPECIFIC GRAVITY 1.025 (Normal) UA - KETONES Negative mg/dL (Normal) UA - BILIRUBIN Negative (Normal) UA - GLUCOSE Negative (Normal) 39-Mph-961356:39 HEPATITIS B SURFACE ANTIBODY Comments: PATIENT NOT FASTINGPERFORMED BY: [facility] MundoHablado.comEC[facility] [id number] (43216) Hep B Surface Ab, Qual Non Reactive (Normal) Comments: Non Reactive: Inconsistent with immunity, less than 10 mIU/mL Reactive: Consistent with immunity, greater than 9.9 mIU/mL 01-Vem-370892:39 HEPATITIS PANEL (63256) Comments: PATIENT NOT FASTINGPERFORMED BY: [place] 2785470 [facility] [id number] Information: [id number] Hep C Virus Ab 0.2 {s/co_ratio} (Normal) Range: 0.0-0.9 Comments: Negative: < 0.8 Indeterminate 0.8 - 0.9 Positive: > 0.9 . In order to reduce the incidence of a false positive result, the CDC recommends that all s/co ratios between 1.0 and 10.9 be confirmed by a more specific supplemental or PCR testing. [facility] offers HCV Ab w/Reflex to Verification test #[id number]. Hep B Core Ab, IgM Negative (Normal) HBsAg Screen Negative (Normal) Hep A Ab, IgM Negative (Normal) 80-Jbc-938378:39 MRRRT-NDZNAKGTYTB-JWVOQ (01995) Comments: PATIENT NOT FASTINGPERFORMED BY: [facility]6370 [facility] [id number] AFP, Serum, Tumor Marker 2.8 ng/mL (Normal) Range: 0.0-8.3 Comments: Ozzie ECLIA methodology 6-Rld-388767:59 CBC, Platelets & Auto Diff Comments: PATIENT NOT FASTINGPERFORMED BY: [place] [id number] [facility] [id number] Information: [id number] (03991) Immature Grans (Abs) 0.0 {x10E3/uL} (Normal) Range: [...] 3.77-5.28 WBC 10.1 {x10E3/uL} (Normal) Range: 3.4-10.8 2-Egw-719114:59 Metabolic Panel, Comprehensive Comments: PATIENT NOT FASTINGPERFORMED BY: [facility] ElmerRrucjc6200 [facility] [id number] (97529) ALT (SGPT) 27 [iU]/L (Normal) Range: 0-32 [...] Glucose, Serum 125 mg/dL (Abnormal) Range: 65-99 3-Bnq-036978:08 Urinalysis, Office (70457) UA - LEUKOCYTE ESTERASE Moderate (Normal) UA - NITRITE Positive (Normal) URINE UROBILINGN JUAN TIMED Normal mg/dL (Normal) UA - PROTEIN Negative mg/dL (Normal) UA - PH 6 (Abnormal) UA - BLOOD non-hemolyzed trace (Normal) UA - SPECIFIC GRAVITY 1.020 (Normal) UA - KETONES Negative mg/dL (Normal) UA - BILIRUBIN Negative (Normal) UA - GLUCOSE Negative (Normal) 07-Pjn-495097:41 Urinalysis, Office (34496) UA - BILIRUBIN Negative (Normal) UA - BLOOD Negative (Normal) UA - GLUCOSE Negative (Normal) UA - KETONES Negative mg/dL (Normal) UA - LEUKOCYTE ESTERASE Negative (Normal) UA - NITRITE Negative (Normal) UA - PH 7.0 (Normal) UA - PROTEIN Negative mg/dL (Normal) UA - SPECIFIC GRAVITY 1.020 (Normal) URINE UROBILINGN JUAN TIMED Normal mg/dL (Normal) 59-Fvo-24754:34 KENROY CULTURE-OTHER (48771) Comments: PATIENT NOT FASTINGPERFORMED BY: [facility] DistillationAt[facility] [id number] Information: SRC: THROAT Result 1 RRF (Normal) Comments: Routine respiratory edith Upper Respiratory Culture Final report (Normal) 98-Zfz-207551:20 [id number] (45183) Comments: PATIENT NOT FASTINGPERFORMED BY: [facility]At[facility] [id number] AFP, Serum, Tumor Marker 2.6 ng/mL (Normal) Range: 0.0-8.3 Comments: Ozzie ECLIA methodology 02-Dot-952590:20 PTT (Activated Partial Comments: PATIENT NOT FASTINGPERFORMED BY: [place] [id number] [facility] [id number] Thromboplastin Time) (82423) aPTT 31 {sec} (Normal) Range: 24-33 Comments: This test has not been validated for monitoring unfractionated heparintherapy. aPTT-based therapeutic ranges for unfractionated heparintherapy have not been established. For general guidelines onHeparin monitoring, refer to the [facility] Directory of Services. 19-Xjw-671999:20 PT (Prothrobim Time) (62344) Comments: PATIENT NOT FASTINGPERFORMED BY: [facility]6370 [facility] [id number] INR 1.0 (Normal) Range: 0.8-1.2 Comments: Reference interval is for non-anticoagulated patients. . Suggested INR therapeutic range for Vitamin K anta gonist therapy: Standard Dose (moderate intensity therapeutic range): 2.0 - 3.0 Higher intensity therapeutic range 2.5 - 3.5 Prothrombin Time 10.3 {sec} (Normal) Range: 9.1-12.0 22-Dcb-212117:20 CBC WITH MANUAL DIFF Comments: PATIENT NOT FASTINGPERFORMED BY: [facility]6370 [facility] [id number] Information: [id number] (65121) Immature Grans (Abs) 0.0 {x10E3/uL} (Normal) Range: [...] 3.77-5.28 WBC 12.1 {x10E3/uL} (Abnormal) Range: 4.0-10.5 58-Nqs-885755:49 GALLBLADDER Radiology Report See Note (Normal) Comments: [...] size of the right kidney. The right iikprzdpcbgfse68.8 cm. Normal renal cortex. The right cortex measures 1.1 cm. Thereisno demonstrated renal mass or cyst. There is no right hydronephrosis. IMPRESSION:Solitary gallstone.Fatty infiltration of the liver. Signed:Jono Dumont M.D.October 11, 2012 at 2:01:18 PM [phone] Signed GP/GP If you are the referring physician and would like to consult with theradiologist who provided this interpretation, please contact Simone Espino at [phone]. If this radiologist is unavailable, youwi ll [...] destructionofthese documents. Dictated on 10/11/12 1059 by Shyla Dumont MDranscribed on 10/11/12 1405 by ITS IMPORTSign by Jono Dumont MD on 10/11/12 1406 Sign by: Jono Dumont MD 42-Qfb-352255:14 C-REACTIVE PROTEIN (87851) Comments: PATIENT NOT FASTINGPERFORMED BY: CB [employer] Hbjwnr4665 [facility] [id number] C-Reactive Protein, Quant 11.5 mg/L (Abnormal) Range: 0.0-4.9 68-Hom-025156:14 SED RATE ERYTHROCYTE (45254) Comments: PATIENT NOT FASTINGPERFORMED BY: [employer] [facility] Svfcyh1364 [facility] [id number] Sedimentation Rate-Westergren 7 mm/h (Normal) Range: 0-32 77-Cgj-460438:14 CBC WITH MANUAL DIFF Comments: PATIENT NOT FASTINGPERFORMED BY: CHUY DataContact [facility] [id number] Information: [id number] (68905) Immature Grans (Abs) 0.0 {x10E3/uL} (Normal) Range: [...] 3.77-5.28 WBC 13.1 {x10E3/uL} (Abnormal) Range: 4.0-10.5 98-Qzs-084623:14 METABOLIC PANEL, COMPREHENSIVE Comments: PATIENT NOT FASTINGPERFORMED BY: CHUY [employer]6370 [facility] [id number] (69211) ALT (SGPT) 25 [iU]/L (Normal) Range: 0-32 [...] mg/dL (Abnormal) Range: 65-99 21-Sep-20129:52 Rapid Flu (07884 x 2) Influenza A Ag pos a (Normal) 5-Wqd-766042:01 Influenza A&B Viral Comments: PATIENT NOT FASTINGPERFORMED BY: CHUY [facility]6370 [facility] [id number] Information: SRC:NOS [id number] Culture (34683) Viral Culture,Rapid,Influenza PFLUA (Abnormal) Comments: PositiveInfluenza A detected.. 4-Yqo-332076:40 LIPID PANEL (73197) Comments: PATIENT WAS FASTINGPERFORMED BY: CHUY [facility]otaskIn[facility] ElmerHtltie1060 [facility] [id number] LDL/HDL Ratio 3.0 {ratio_units} (Normal) Range: 0.0-3.2 LDL Cholesterol Calc 103 mg/dL (Abnormal) Range: 0-99 VLDL Cholesterol [place] 33 mg/dL (Normal) Range: 5-40 Cholesterol, Total 170 mg/dL (Normal) Range: 100-199 HDL Cholesterol 34 mg/dL (Abnormal) Comments: According to ATP-III Guidelines, HDL-C >59 mg/dL is considered anegative risk factor for CHD. Triglycerides 163 mg/dL (Abnormal) Range: 0-149 1-Ppv-594723:40 METABOLIC PANEL, Comments: PATIENT WAS FASTINGPERFORMED BY: [facility] ElmerKuzvfm9570 [facility] [id number] Information: [id number] COMPREHENSIVE (89333) ALT (SGPT) 29 [iU]/L (Normal) Range: 0-32 [...] Glucose, Serum 87 mg/dL (Normal) Range: 65-99 39-Uky-90612:35 KENROY CULTURE-OTHER (18886) Comments: PATIENT NOT FASTINGPERFORMED BY: [facility] ElmerQsopmr3432 [facility] [id number] Information: SRC:THRT [id number] Result 1 RRF (Normal) Comments: Routine respiratory edith Upper Respiratory Culture Final report (Normal) 90-Upm-61392:21 Rapid Strep Test, Office (48323) Rapid Strep Test, Office Negative (Normal) 0-Aac-707251:10 CBC With Differential/Platelet Comments: PATIENT WAS FASTINGPERFORMED BY: [facility] Moxhqz6435 [facility] [id number] Immature Grans (Abs) 0.0 {x10E3/uL} (Normal) Range: [...] 3.77-5.28 WBC 9.3 {x10E3/uL} (Normal) Range: 4.0-10.5 :10 Comp. Metabolic Panel (14) Comments: PATIENT WAS FASTINGPERFORMED BY: [facility] ElmerLiphvb2046 [facility] [id number] ALT (SGPT) 22 [iU]/L (Normal) Range: 0-40 [...] % (Abnormal) Comments: PATIENT WAS FASTINGPERFORMED BY: [facility] ElmerOuvdbf7455 [facility] [id number] :10 Range: 4.8-5.6 Comments: . Increased risk for diabetes: 5.7 - 6.4 Diabetes: >6.4 Glycemic control for adults with diabetes: <7.0 :10 Lipid Panel With LDL/HDL Comments: PATIENT WAS FASTINGPERFORMED BY: [facility]askIn[facility] ElmerCmdjqv[address] [place] [address] [id number] Ratio LDL/HDL Ratio 4.3 {ratio_units} (Abnormal) Range: 0.0-3.2 LDL Cholesterol Calc 154 mg/dL (Abnormal) Range: 0-99 VLDL Cholesterol [place] 23 mg/dL (Normal) Range: 5-40 HDL Cholesterol 36 mg/dL (Abnormal) Comments: According to ATP-III Guidelines, HDL-C >59 mg/dL is considered anegative risk factor for CHD. Triglycerides 115 mg/dL (Normal) Range: 0-149 Cholesterol, Total 213 mg/dL (Abnormal) Range: 100-199 3-Ffx-507437:10 Microalb/Creat Ratio, Randm Ur Comments: PATIENT WAS FASTINGPERFORMED BY: [facility] ElmerYkqwjo2908 [facility] [id number] Microalb/Creat Ratio 6.3 {mg/g_creat} (Normal) Range: 0.0-30.0 Creatinine, Urine 30.4 mg/dL (Normal) Range: 15.0-278.0 Microalbumin, Urine 1.9 ug/mL (Normal) Range: 0.0-17.0 4-Nwh-986823:10 Microscopic Examination Comments: PATIENT WAS FASTINGPERFORMED BY: [facility] ElmerSnkdpz4838 [facility] [id number] Bacteria Few (Normal) Mucus Threads Present (Normal) Epithelial Cells (non 0-10 {/hpf} Range: 0 - 10 renal) (Normal) RBC None seen {/hpf} Range: 0 - 3 (Normal) WBC 0-5 {/hpf} (Normal) Range: 0 - 5 TSH 2.190 {uIU/mL} Comments: PATIENT WAS FASTINGPERFORMED BY: [facility]6370 [facility] [id number] :10 (Normal) Range: 0.450-4.500 0-Vxv-398053:10 Urinalysis, Complete Comments: PATIENT WAS FASTINGPERFORMED BY: [facility]6370 [facility] [id number] Microscopic Examination See below: (Normal) Microscopic Examination MICRON (Normal) Comments: Microscopic follows if indicated. Nitrite, Urine Negative (Normal) Urobilinogen,Semi-Qn 0.2 mg/dL (Normal) Range: 0.0-1.9 Bilirubin Negative (Normal) Occult Blood Negative (Normal) Ketones Negative (Normal) Glucose Negative (Normal) Protein Negative (Normal) WBC Esterase Negative (Normal) Appearance Clear (Normal) Urine-Color Yellow (Normal) pH 7.5 (Normal) Range: 5.0-7.5 Specific [place] 1.008 (Normal) Range: 1.005-1.030 7-Zlz-262262:53 CHEST, PA AND LATERAL Radiology Report See [...] shah M.D.May 28, 2012 at 3:41:15 PM [id number] Signed GP/GP If you are the referring physician and would like to consult with theradiologist who provided this interpretation, please contact Simone Espino at [phone]. If this radiologist is unavailable, youwill be directed to another radiologist to assist. If you are a patient with a question regarding this report, pl adelaidecontactyour referring physician directly. Professional Interpretation Provided By: [employer], Phone , These documents contain legally protected and confidential healt hinformation intended only for the use of the individual or entity namedabove. If you are not the intended recipient, you are hereby notifiedthatany disclosure, copying, distribution, or other use of [facility] documents isstrictly prohibited. If you have [...] Marquez M.D.May 26, 2012 at 9:02:07 PM EDT(922) [phone] Signed AM/AM If you are the referring physician and would like to consult with theradiologist who provided this i nterpretation, please contact Joanne Marquez M.D. at . If this radiologist is unavailable, you will bedirected to another radiologist to assist. If you are a patient with a question regarding this report, pleasecontactyour referring physician directly. Professional Interpretation Provided By: [employer], Phone , These documents contain legally protected [...] partial nephrectomy H/O partial nephrectomy : Reviewed Brakes Inspector Letter Indication: H/O partial nephrectomy Abdominal pain, [...] Indication: Abdominal pain, acute, generalized Planned Observations Serum Free Light Chains (08890)Indication: Abnormal blood chemistry On: 54-Qng-450667:54 Request MICROALBUMIN: CREATININE RATIO (21711) AND (10474)Indication: Hypertension, benign On: :06 Request IMMUNOGLOBULIN E (IgE) (50933)Indication: Acute bronchitis On: :06 Request LIPID PANEL (68031)Indication: Mixed hyperlipidemia On: :40 Request PBSJO-LATFJXCRLAD-NFNVL (60662)Indication: Fatty liver On: :40 Request HGB A1C (28612)Indication: Impaired Fasting Glucose On: :40 Request METABOLIC PANEL, COMPREHENSIVE (17225)Indication: Impaired Fasting Glucose On: :40 Request CBC (AUTO) (45281)Indication: Impaired Fasting Glucose On: :49 Request Vitamin D Hydroxy (14298)Indication: Vitamin D deficiency On: :48 Request METABOLIC PANEL, COMPREHENSIVE (62614)Indication: Mixed hyperlipidemia On: :48 Request LIPOPROTEIN, BLD, BY NMR (33965)Indication: Mixed hyperlipidemia On: :48 Request SYRRU-CFPKXOKZCVF-QSRFG (45059)Indication: Acute foot pain, right On: 64-Jog-564826:38 Request Vitamin D Hydroxy (21081)Indication: Vitamin D deficiency On: :50 Request KOTMR-WMYXMFAUMLF-KNDPT (38732)Indication: Fatty liver On: 23-Nov-20159:50 Request METABOLIC PANEL, COMPREHENSIVE (39568)Indication: Impaired Fasting Glucose On: :49 Request MICROALBUMIN: CREATININE RATIO (13747) AND (57184)Indication: Impaired Fasting Glucose On: :49 Request HGB A1C (67301)Indication: Impaired Fasting Glucose On: :49 Request LIPID PANEL (27007)Indication: Mixed hyperlipidemia On: 23-Nov-20159:49 Request LIPID PANEL (52106)Indication: Mixed hyperlipidemia On: : Request MICROALBUMIN: CREATININE RATIO (29440) AND (28745)Indication: Impaired Fasting Glucose On: : Request Hemoglobin Glyclated (HGB A1C) (32414)Indication: Impaired Fasting Glucose On: : Request Vitamin D Hydroxy (94760)Indication: Vitamin D deficiency On: : Request Vitamin D Hydroxy (66224)Indication: Vitamin D deficiency On: :11 Request CBC with auto diff (13829)Indication: Hypertension, benign On: : Request METABOLIC PANEL, COMPREHENSIVE (23599)Indication: Impaired Fasting Glucose On: 14-Gmi-458993:10 Request MICROALBUMIN: CREATININE RATIO (80304) AND (57034)Indication: Impaired Fasting Glucose On: :10 Request Hemoglobin Glyclated (HGB A1C) (24722)Indication: Impaired Fasting Glucose On: 89-Qqi-970730:10 Request LIPID PANEL (93583)Indication: Mixed hyperlipidemia On: 20-Aop-684710:10 Request UAVUF-VCVNISJNCLI-ZJVQA (83133)Indication: Fatty liver On: 90-Fqn-309193:10 Request Vitamin D Hydroxy (24080)Indication: Vitamin D deficiency On: 0-Edb-069245:15 Request Hemoglobin Glyclated (HGB A1C) (51127)Indication: Impaired Fasting Glucose On: 7-Wog-324839:14 Request METABOLIC PANEL, COMPREHENSIVE (28765)Indication: Impaired Fasting Glucose On: 0-Cgh-838996:14 Request LIPID PANEL (90247)Indication: Mixed hyperlipidemia On: 0-Zjn-934169:14 Request Lipid Panel (08868)Indication: Elevated liver enzymes On: 44-Vsg-546038:47 Request HEPATIC FUNCTION PANEL (32305)Indication: Mixed hyperlipidemia On: 42-Oyy-511326:08 Request CALCIFEDIOL (10770)Indication: Unspecified Diagnosis On: 02-Vjg-43731:53 Request Lipid Panel (59945)Indication: Unspecified Diagnosis On: :53 Request Lipid Panel (05929)Indication: SCREENING FOR HYPERLIPIDEMIA (Renamed from Encounter for screening for lipoid disorders) On: 49-Yed-757753:34 Request Comments: To be drawn Fasting Mar 2014 METABOLIC PANEL, COMPREHENSIVE (08575)Indication: Left knee pain On: :39 Request CCP ANTIBODY (14648)Indication: Left knee pain On: :39 Request SED RATE ERYTHROCYTE (97410)Indication: Left knee pain On: :39 Request C-REACTIVE PROTEIN (74484)Indication: Left knee pain On: :39 Request TSH (19556)Indication: Left knee pain On: :39 Request RHEUMATOID FACTOR-QUANT (00888)Indication: Left knee pain On: :39 Request Rapid Strep Test, Office (40031)Indication: ACUTE PHARYNGITIS (462.) On: 86-Vao-06383:20 Request C-REACT PROT HIGH SENS(hsCRP) (85284)Indication: Hypertension, benign On: 04-Xoi-358944:16 Request Sed Rate Erythrocyte (67645)Indication: Hypertension, benign On: 17-Bdp-204455:16 Request CBC with manual diff (86384)Indication: Hypertension, benign On: 47-Wmt-370033:16 Request TSH (71348)Indication: Chest pain On: :33 Request CBC WITH MANUAL DIFF (32283)Indication: Chest pain On: :33 Request MICROALBUMIN: CREATININE RATIO (95651) AND (90104)Indication: Hypertension, benign On: :47 Request URINALYSIS, W/ MICRO (00942)Indication: Hypertension, benign On: :47 Request Hemoglobin Glyclated (HGB A1C) (53751)Indication: Obesity, unspecified On: :47 Request LIPID PANEL (41382)Indication: Mixed hyperlipidemia On: :46 Request METABOLIC PANEL, COMPREHENSIVE (99378)Indication: Hypertension, benign On: 11-Tfn-775279:46 Request Planned Procedures ELECTROCARDIOGRAM, COMPLETE (ECG) On: 20-Aug-2018 Intent (11046)By: Fast DO, Marcelle A Fast DO, Marcelle A DEXA SCAN AXIAL SKELETON (07448)By: On: 20-Aug-2018 Intent Fast DO, Marcelle A Fast DO, Marcelle A SCREENING DIGITAL TOMOSYNTHESIS OF On: 20-Aug-2018 Intent BREAST (49614)By: Fast DO, Marcelle A Fast DO, Marcelle A CT ABDOMEN AND PELVIS WITHOUT On: 10-Aug-2018 Intent CONTRAST (37266)By: Fast DO, Marcelle A Comments: stone protocol- STAT STAT STAT STAT STAT STAT Fast DO, Marcelle A ELECTROCARDIOGRAM, COMPLETE (ECG) On: 26-Jul-2018 Intent (04132)By: Catalina Corona Comments: Normal Sinus Rhythm-HR 67 ORTHOSTATIC BLOOD PRESSURE On: 26-Jul-2018 Intent ASSESSMENT (35404)By: Catalina Corona Comments: Layin/68 HR 60Sittin/70 LR30Jrzfefwv: 84/66 HR 90 Flu Vaccine (Quadrivalent) 30362Yh: On: 30-Apr-2018 Intent Fast DO, Marcelle A Fast DO, Marcelle A Comments: Lot #[id number]/30/19Site-L dltd, IMDose prefilled syringegiven by: Marta AVINA reviewed and ABN signed MAGNETIC RESONANCE IMAGING OF RIGHT On: 07-Mar-2018 Intent CALF WITHOUT THEN WITH CONTRAST (32518)By: Sara Henry Doppler Ultrasound OtherBy: Fast DO, [...] A ELECTROCARDIOGRAM, COMPLETE (ECG) On: 20-Jun-2017 Intent (76813)By: Fast DO, Marcelle A Fast DO, Marcelle A SCREENING DIGITAL TOMOSYNTHESIS OF On: 20-Jun-2017 Intent BREAST (89909)By: Fast DO, Marcelle A Fast DO, Marcelle A Flu Vaccine (Quadrivalent) 23959Il: On: 20-Jun-2017 Intent Fast DO, Marcelle A Fast DO, Marcelle A Comments: lot: [id number]: 02/05/18ite/route: L blayne, IMamt: 0.5mlVIS and ABN signed when applicableChelsea, KENNEL HELPER Doppler Ultrasound OtherBy: Fast DO, On: 28-Apr-2017 [...] Comments: Lot:[id number]:01/05Dose:1mlRoute:IMSite:l armGiven By:BRIAN signed Aerosol Treatment (58806)By: Fast On: 23-Sep-2016 Intent DO, Marcelle A Fast DO, Marcelle A Comments: with albuterol Ultrasound - ThyroidBy: Fast DO, On: 29-Aug-2016 Intent Marcelle A Fast DO, Marcelle A Radiology - Shoulder - LeftBy: Fast On: 16-May-2016 Intent DO, Marcelle A Fast DO, Marcelle A Comments: with ac joint please DEXA SCAN AXIAL SKELETON (10825)By: On: 16-May-2016 Intent Fast DO, Marcelle A Fast DO, Marcelle A MAMMOGRAM, SCREENING, BOTH BREAST On: 16-May-2016 Intent (77973)By: Fast DO, Marcelle A Fast DO, Marcelle A ELECTROCARDIOGRAM, COMPLETE (ECG) On: 16-May-2016 Intent (65943)By: Fast DO, Marcelle A Fast DO, Comments: ekg showed normal sinus rhythym, normal axis, no acute st/t wave changes slight prolong qt Marcelle A Flu Vaccine (Quadrivalent) 21566Nl: On: 16-May-2016 Intent Fast DO, Marcelle A Fast DO, Marcelle A Comments: Lot #:[id number] date:02/17/17mount given:0.5mlRoute: IMSite given: left deltoidGiven by: TRAM Burch ADMINISTRATION OF INFLUENZA VIRUS On: 16-May-2016 Intent VACCINE (G0008)By: Fast DO, Marcelle A Fast DO, Marcelle A Radiology - Foot - RightBy: Fast DO, On: 16-Mar-2016 Intent Marcelle A Fast DO, Marcelle A CT - Chest (Without Contrast)By: On: 18-Sep-2015 Intent Fast DO, Marcelle A Fast DO, Marcelle A Comments: attn left suproaclavicular Ultrasound - ThyroidBy: Andrew MATHIS, On: 18-Sep-2015 Intent Marcelle A Fast DO, Marcelle A Ultrasound - ThyroidBy: Felix BACH, On: 27-May-2015 Intent Vivian Mosqueda Radiology - ChestBy: Vivian Washington CNP On: 18-May-2015 Intent E MAMMOGRAM, SCREENING, BOTH BREAST On: 15-May-2015 Intent (46198)By: Fast DO, Marcelle A Fast DO, Marcelle A Flu Vaccine (Quadrivalent) 49201Dz: On: 15-May-2015 Intent Fast DO, Marcelle A Fast DO, Marcelle A Comments: Lot:[id number]:01/03Dose:0.5mLRoute:IMSite:L DltdGiven By:AZEB Kennedy signed ADMINISTRATION OF INFLUENZA VIRUS On: 15-May-2015 Intent VACCINE (G0008)By: Fast DO, Marcelle A Fast DO, Marcelle A EKG (95234)By: Fast DO, Marcelle A On: 06-Feb-2015 Intent Fast DO, Marcelle A Comments: ekg showed normal sinus rhythym, normal axis, no acute st/t wave changes lvh no change Aerosol Treatment (99929)By: Christy On: 15-Jan-2015 Intent Jing MATHIS Comments: more a/e - still exp noise on left side only Radiology - Chest- PA and LatBy: On: 15-Jan-2015 Intent Jing Harrison DO Flu Vaccine (Quadrivalent) 21790Jn: On: 20-Jun-2014 Intent Vivian Washington CNP ADMINISTRATION OF INFLUENZA VIRUS On: 20-Jun-2014 Intent VACCINE (G0008)By: Vivian Washington CNP Ultrasound - ThyroidBy: Christy MATHIS, On: 19-Jun-2014 Intent Jing EsophagramBy: Jing Harrison [...] ADMNIN, 1 VAC, SNGL/COMBO On: 03-Jul-2013 Intent (04298)By: Maty Taveras LPN Comments: Lot #[id number]-L dltd, IMDose prefilled syringegiven by:SIMONE Luque and ABN signed FLU VAC, SPLIT, >3 YEARS, INTRAMUSC On: 03-Jul-2013 Intent (79563)By: Maty Taveras LPN Toradol Injection, 30 mg (J1885)By: On: 31-May-2013 Intent Vivian Washington CNP Radiology - Left KneeBy: Felix BACH, On: 31-May-2013 Intent Vivian Mosqueda Eprescribed prescriptions (G8553)By: On: 06-Mar-2013 Intent Sara Henry EKG (17383)By: Fast DO, Marcelle A On: 15-Oct-2012 Intent Fast DO, Marcelle A Comments: ekg showed normal sinus rhythym, normal axis, no acute st/t wave changes nsivcd no change Spirometry (04251)By: Fast DO, On: 15-Oct-2012 Intent Marcelle A Fast DO, Marcelle A Comments: good effort and curve normal Radiology - Chest- PA and LatBy: On: 15-Oct-2012 Intent Fast DO, Marcelle A Fast DO, Marcelle A Ultrasound - GallbladderBy: Fast DO, On: 09-Oct-2012 Intent Marcelle A Fast DO, Marcelle A Eprescribed prescriptions (G8553)By: On: 09-Oct-2012 Intent Melania Salcedo Aerosol Treatment (42630)By: Felix On: 21-Sep-2012 Intent SUPERVISING BAILIFF, Sally Eprescribed prescriptions (G8553)By: On: 20-Jul-2012 Intent Melania Salcedo SPECIMEN HNDLNG/TRNSPRT, OFFC > LAB On: 11-Jul-2012 Intent (33102)By: George Oscar LPN FLU VAC, SPLIT, >3 YEARS, INTRAMUSC On: 18-May-2012 Intent (14175)By: Melania Salcedo Comments: Lot:[id number]:prefilledRoute:IMSite:L DltdGiven By:BRIAN signed CT - Abdomen & PelvisBy: Fast DO, On: 18-May-2012 Intent Marcelle A Fast DO, Marcelle A Echo CompleteBy: Fast DO, Marcelle A On: 18-May-2012 Intent Fast DO, Marcelle A Spirometry (58238)By: Fast DO, On: 18-May-2012 Intent Marcelle A Fast DO, Marcelle A Comments: good effort and curve normal Eprescribed prescriptions (G8553)By: On: 18-May-2012 Intent Fast DO, Marcelle A Fast DO, Marcelle A EKG (55506)By: Fast DO, Marcelle A On: 18-May-2012 Intent Fast DO, Marcelle A Comments: sinus with deep r waves left axis no acute st t cahnges Radiology - Chest- PA and LatBy: On: 18-May-2012 Intent Fast DO, Marcelle A Fast DO, Marcelle A TD Injection , IM (32515)By: On: 18-May-2012 Intent Melania Salcedo Comments: received in 2002 IMMUNIZ ADMNIN, 1 VAC, SNGL/COMBO On: 18-May-2012 Intent (25793)By: Melania Salcedo Planned Medications INJECTION, KETOROLAC TROMETHAMINE, [...] : Patient Instructions Indication: Impaired Fasting Gl[facility] : How to access health information online Indication: M[facility] Wellness Physical [facility] : How to access health information online - Detail Indication: [facility] Wellness [facility] : Patient Instructions Indication: MDP [...] left side , Fatty liver, Hair loss, Mdvip Wellness exam, Vitamin D deficiency, Vitamin B12 [...] it passed. Dizziness with movement. Was at [place] working out and thought would stop and [...] BP med/ Will be seeing neurologist in [place] tomorrow), has decreased energy level (comes and [...] is sleeping poorly (just got back from [employer], time zone). 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 [facility] the c End: 20-Sep-2015 17:39 uff [...] thyroi us- di dnt see [place] saw donald about enlarged lymph node- he thought maybe fatty didnt scan- alot of stress at home thinks wh feeling bad- not having as much left lower rib pain- supposed to have ct of abd she is getting appt with urology t [facility] tthis done se we talked they can [...] well and feeling alot better - saw [facility] yesterday- and had mri of kidney and [...] with oncologist- which didnt feel she got [facility]we[facility]- has had abd pain for 4 [...] do from here. Has seen Oncologist in [place], Dr. Jan Healy which he has referred her to [facility] which she is waiting to get in. margins were not clear and was renal cell carcino alysia hollingsworth wanted to do watchful waiting- but went for second opinion in [place]-- got referred to Dr Iglesia Gibbons- she [...] for new patient female physical: [facility] - last at Dr [...] ([phone]), Abdominal Pain,General ([phone]) [facility] TEMITOPE VALDOVINOS; a guarantor
--- OUTSIDE RECORDS SUMMARY | 2018-11-11 07:44 | XMS RPT_ITS | Continuity of Care Document ---
:1965 Author Organization [facility] Address [address] [facility] [address] [place] [address] Phone Care Team Providers Name Role Phone Marcelle Daley DO Unavailable Dr. Blayne Welsh Unavailable Devorah ALFARO MD , Richar Cruz Unavailable Dr. Alannah Marina Unavailable Brittany Hicks Unavailable Fuentes Del Toro MD Unavailable Dr. Harjinder Cifuentes Unavailable Dr. 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 Rib pain on left side (R07.81, 786.50) Status: Active Right acute serous otitis media, [...] days Quantity: 1 {Packet(s)} Refills: 1 Ordered:23-Nov-2015 Andrew MATHIS Marcelle HUGHESrikki Marcelle A Start : 23-Nov-2015 Active Augmentin 875-125 MG Oral Tablet 1 Tablet bid for 10 days Quantity: 20 {Tablet} Refills: 0 Ordered:08-Aug-2018 Andrew MATHIS Marcelle Chopra DO Marcelle A Start : 08-Aug-2018 Active CeleBREX 100 MG Oral Capsule 1 (one) Capsule Capsule daily prn for 90 days Quantity: 90 {Capsule} Refills: 1 Ordered:09-Apr-2018 Gastonjaclyncristian Sara Start : 09-Apr-2018 Active Gabapentin 100 MG Oral Capsule 1 (one) Capsule Capsule tid for 0 days Quantity: 90 {Capsule} Refills: 2 Ordered:20-Jul-2018 Andrew MATHIS Marcelle HUGHESrikki MATHIS Marcelle A Start : 20-Jul-2018 Active Losartan Potassium 25 MG Oral Tablet 1 (one) Tablet qd for 90 days Quantity: 90 {Tablet} Refills: 3 Ordered:27-Jul-2018 Andrew MATHIS Marcelle HUGHESrikki MATHIS Marcelle A Start : 27-Jul-2018 Active Losartan Potassium 25 MG Oral Tablet 1 (one) Tablet qd for 0 days Quantity: 30 {Tablet} Refills: 0 Ordered:27-Jul-2018 Andrew MATHIS Marcelle HUGHESrikki MATHIS Marcelle A Start : 27-Jul-2018 Active Nasacort Allergy 24HR 55 MCG/ACT Nasal Aerosol 1 spray each nostril daily (55 MCG/ACT) Active Nystatin 080903 UNIT/GM External Powder 1 (one) Powder qd for 0 days Quantity: 1 {Bottle} Refills: 1 Ordered:30-Apr-2018 Andrew MATHIS Marcelle HUGHESrikki Marcelle A Start : 30-Apr-2018 Active ProAir HFA 108 (90 Base) MCG/ACT Inhalation Aerosol Solution 2 (two) Aerosol Soln puffs q 6 hours prn for 0 days Quantity: 1 {Inhaler} Refills: 1 Ordered:21-Jul-2017 Andrew MATHIS Marcelle HUGHESrikki MATHIS Marcelle A Start : 21-Jul-2017 Active Rosuvastatin Calcium 10 MG Oral Tablet 1/2 Tablet qeve for 0 days Quantity: 30 {Tablet} Refills: 3 Ordered:07-May-2018 Andrew MATHIS Marcelle HUGHESrikki MATHIS Marcelle A Start : 07-May-2018 Active Rosuvastatin Calcium 10 MG Oral Tablet 1/2 Tablet qeve for 0 days Quantity: 90 {Tablet} Refills: 3 Ordered:07-May-2018 Fast DO, Marcelle AFast DO, Marcelle A Start : 07-May-2018 Active Vitamin D3 2000 UNIT Oral Tablet 2 (two) Tablet Tablet qd for 0 days Quantity: 60 {Tablet} Refills: 3 Ordered:23-Dec-2016 Melania Salcedo Start : 06-Dec-2016 Active BIAXIN XL PAC, 500MG (Oral Tablet Extended [...] daily for 30 days Refills: 0 Ordered:20-Jul-2012 Fast DO, Marcelle AFast DO, Marcelle A Start : 20-Jul-2012 End : 19-Aug-2012 Inactive Contrave 8-90 MG Oral Tablet Extended Release 12 Hour 4 Tablet qd for 0 days Quantity: 120 {Tablet} Refills: 1 Ordered:16-Oct-2017 Sara Henry Start : 20-Jun-2017 End : 16-Oct-2017 Inactive Doxycycline Hyclate 100 MG Oral Capsule 1 (one) Capsule bid for 0 days Quantity: 20 {Capsule} Refills: 0 Ordered:16-Oct-2017 Marcelle Daley DO, DO, Marcelle A Start : 21-Jul-2017 End [...] days Quantity: 6 {Tablet} Refills: 0 Ordered:16-Jul-2013 Felix ISREALVivian Start : 16-Jul-2013 End : 19-Jul-2013 Inactive Comments:take wtih food PREDNISONE, 20MG (Oral Tablet) 1 (one) Tablet bid for 2 days for 2 days Quantity: 4 {Tablet} Refills: 0 Ordered:15-Jan-2015 Jing Harrison DO Start : 15-Jan-2015 End : 17-Jan-2015 Inactive PROMISEB (External Cream) uad bid Inactive TAMIFLU, 75MG (Oral Capsule) 1 Capsule Bid for 5 days Quantity: 10 {Capsule} Refills: 0 Ordered:21-Sep-2012 Felix ISREALVivian Start : 21-Sep-2012 End : 26-Sep-2012 Inactive [...] Refills: 0 Ordered:18-Jan-2017 Marcelle Daley DO, DO, Marcelle A Start : 07-Dec-2016 End : 06-Jan-2017 Inactive VITAMIN B12, 100MCG (Oral Tablet) 1 daily (100 MCG) Inactive Atorvastatin Calcium 10 MG Oral Tablet 1 (one) Tablet qd in renzo for 90 days Quantity: 90 {Tablet} Refills: 3 Ordered:16-Oct-2017 Andrew DO, Marcelle AFast DO, Marcelle A Start : 16-Oct-2017 End : 16-Oct-2017 Discontinued AZELASTINE HCL, 0.05% (Ophthalmic Solution) 1 (one) Solution Solution bid for 0 days Quantity: 1 {Bottle} Refills: 0 Ordered:21-Apr-2015 Laura Benito LPN Start : 06-Dec-2013 End : 21-Apr-2015 Discontinued Ergocalciferol 32209 UNIT Oral Capsule 1 (one) Capsule Capsule q week for 0 days Quantity: 12 {Capsule} Refills: 3 Ordered:08-Mar-2017 Melania Salcedo Start : 04-Nov-2014 End : 08-Mar-2017 Discontinued Ergocalciferol 80450 UNIT Oral Capsule 1 (one) Capsule Capsule [...] Quantity: 180 {Capsule_ER} Refills: 3 Ordered:21-Apr-2015 Slarb TRANSIT PROOF MACHINE OPERATOR, Laura Start : 07-Sep-2012 End : 21-Apr-2015 Discontinued PROVENTIL HFA, 108 (90 Base)MCG/ACT (Inhalation Aerosol Solution) 2 (two) Aerosol Soln q 6 hr prn for 0 days Quantity: 1 {Inhaler} Refills: 0 Ordered:21-Apr-2015 Slarb TRANSIT PROOF MACHINE OPERATOR, Laura Start : 19-Jan-2015 End : 21-Apr-2015 Discontinued WELCHOL, 625MG (Oral Tablet) 3 (three) Tablet bid for 90 days Quantity: 540 {Tablet} Refills: 3 Ordered:23-Sep-2014 Fast DO, Marcelle AFast DO, Marcelle A Start : 23-Sep-2014 End : 23-Sep-2014 Discontinued ZITHROMAX Z-MEREDITH, 250MG (Oral Tablet) tad Tablet Tablet qd for 0 days Quantity: 1 {Package} Refills: 0 Ordered:21-Apr-2015 Slarb BEATRICE, Laura Start : 15-Jan-2015 End : 21-Apr-2015 [...] Status: Resolved as of 06-Feb-2015 Vaccine for zslyumjyyh-bldoqfr-irwdlqecl with poliomyelitis (Z23, V06.3) Status: Inactive as [...] EMG Patient Result: Comments: See Note; NOTES: [facility] Pulmonary Services/Neurology [address] [place] [place] [address] MR#: [id number] Acct: [id number] Name: AMY VALDOVINOS Rep #: [id number] : 0 1965 52 From: Adebayo Canchola MD Referring Dr: Blayne Welsh DPM Status: REG CLI Ordering Dr: Date: Location: PSN Sex: F C NCS and/or EMG Patient [...] Dictated: 03/28/18 1021 Date Transcribed: 03/28/18 1021 Seafood Technology Specialist: NF Signed 10-Mar-2018 Lower Ext No Joint W/WO Cont Result: Comments: See Note; NOTES: [facility] Imaging Services [address] [place] [address] Lower Ext No Joint W/WO Cont MR#: [id number] Acct: [id number] Name: AMY VALDOVINOS Rep #: [id number] : 1965 F 52 From: Ge Moffett MD PCP: Marcelle Daley DO Status: REG CLI Study: Lower Ext No Joint W/WO Cont Date of Exam: 03/10/18 Exam# [id number] Ordering Dr: Marcelle Daley DO STUD Y: [...] Service support , CC: Marcelle Daley DO Seafood Technology Specialist: Signed 06-Mar-2018 Venous Duplex Lower Extremity Result: Comments: See Note; NOTES: [facility] Cardiovascular Services [address] [place] [address] Venous Duplex US, Unilateral 03/06/18 1435 MR#: [id number] Acct: [id number] Name: AMY CHOI Rep #: [id number] : 1965 52 From: Jared Hines MD Attending Dr: Marcelle Daley DO Status: REG CLI Ordering Dr: Marcelle Daley DO Date: 03/06/18 Location: [facility] Sex: F C Admitted: [place] son For Study: LEG SWELLING RIGHT LEFT [...] Dictated: 03/06/18 1435 Date Transcribed: 03/06/18 1623 Seafood Technology Specialist: Signed 19-Feb-2018 Abdomen/Pelvis WITH Contrast Result: Comments: See Note; NOTES: [facility] Imaging Services [address] [place] [address] Abdomen/Pelvis WITH Contrast MR#: [id number] Acct: [id number] Name: BONIFACIOAMYJaylin LINN Rep #: [id number] : 1965 F 52 From: Jono Dumont MD PCP: Marcelle Daley DO Status: REG CLI Study: Abdomen/Pelvis WITH Contrast Date of Exam: 02/19/18 Exam# [id number] Ordering Dr: Marcelle Daley DO S TUDY: [...] Jono Dumont MD at 10:35 EDT Tel [phone], Service support , CC: Marcelle Daley DO Seafood Technology Specialist: Signed 17-Oct-2017 Thyroid Result: Comments: See Note; NOTES: [facility] Imaging Services [address] [place] [address] Thyroid MR#: [id number] Acct: [id number] Name: AMY VALDOVINOS Rep #: [id number] : [birth year] F 52 From: Shine Sawyer MD PCP: Marcelle Daley DO Status: REG CLI Study: Thyroid Date of Exam: 10/17/17 Exam# [id number] Ordering Dr: Marcelle Daley DO STUDY: THYROID ULTRASOUND REASON FOR EXAM: F juan, 52 years old. Follow-up nodules. TECHNIQUE: Ultrasound [...] Service support , CC: Marcelle Daley DO Seafood Technology Specialist: Signed 01-Aug-2017 SCREENING MAMM (CAD), BILAT Result: Comments: See Note; NOTES: [facility] Imaging Services [address] [place] [address] SCREENING MAMM (CAD), BILAT MR#: [id number] Acct: [id number] Name: AMY VALDOVINOS Rep #: [id number] : 1965 F 52 From: Jono Dumont MD PCP: Marcelle Daley DO Status: REG CLI Study: SCREENING MAMM (CAD), BILAT Date of Exam: 08/01/17 Exam# [id number] Ordering Dr: Marcelle Daley DO [facility] MOGRAPHY - BILATERAL SCREENING REASON [...] delay biopsy of a clinically suspicious abnormality. [id number] Electronically Signed: Alma Dumont MD at 15:11 EST Tel [phone], Service support , CC: Marcelle Daley DO Seafood Technology Specialist: Signed 01-May-2017 Venous Duplex Lower Extremity Result: Comments: See Note; NOTES: [facility] Cardiovascular Services [address] [address] Venous Duplex US, Unilateral 04/28/17 1357 MR#: [id number] Acct: [id number] Name: AMY CHOI Rep #: [id number] : 1965 51 From: Jared Hines MD Attending Dr: Marcelle Daley DO Status: REG CLI Ordering Dr: Marcelle Daley DO Date: 04/28/17 Location: [facility] Sex: F C Admitted: [place] son For Study: SWELLING RIGHT LEFT GSV [...] Dictated: 04/28/17 1357 Date Transcribed: 05/01/17 0855 Seafood Technology Specialist: Signed 28-Apr-2017 Foot min 3 Views Result: Comments: See Note; NOTES: [facility] Imaging Services [address] [place] [address] Foot min 3 Views MR#: [id number] Acct: [id number] Name: AMY VALDOVINOS Rep #: [id number] D OB: 1965 F 51 From: Amarjit Britton DO PCP: Marcelle Daley DO Status: REG CLI Study: Foot min 3 Views Date of Exam: 04/28/17 Exam# [id number] Ordering Dr: Marcelle Daley DO STUDY: X-RAY [...] Amarjit Britton DO at 20:42 EDT Tel [phone], Service support , CC: Marcelle Daley DO Seafood Technology Specialist: Signed 28-Apr-2017 Knee 4 or More Views Result: Comments: See Note; NOTES: [facility] Imaging Services [address] [place] [address] Knee 4 or More Views MR#: [id number] Acct: [id number] Name: AMY VALDOVINOS Rep #: [id number] : 1965 F 51 From: Amarjit Britton DO PCP: Marcelle Daley DO Status: REG CLI Study: Knee 4 or More Views Date of Exam: 04/28/17 Exam# [id number] Ordering Dr: Marcelle Daley DO STUDY: X-RAY [...] Amarjit Britton DO at 20:31 EDT Tel [phone], Service support , CC: Marcelle Daley DO Seafood Technology Specialist: Signed 23-Mar-2017 Liver Result: Comments: See Note; NOTES: [facility] Imaging Services [address] [place] [address] Liver MR#: [id number] Acct: [id number] Name: AMY VALDOVINOS Rep #: [id number] : [birth year] F 51 From: Jono Dumont MD PCP: Marcelle Daley DO Status: REG CLI Study: Liver Date of Exam: 03/23/17 Exam# [id number] Ordering Dr: Marcelle Daley DO STUDY: ABDOMINAL [...] Jono Dumont MD at 8:50 EDT Tel [phone], Service support , CC: Marcelle Daley DO Seafood Technology Specialist: Signed 31-Aug-2016 Thyroid Result: Comments: See Note; NOTES: [facility] Imaging Services [address] [place] [address] [place] [address] Verdana 4d Thyroid MR#: [id number] Acct: [id number] Name: AMY VALDOVINOS Rep #: [id number] : 1965 F 51 From: Amarjit Britton DO PCP: Marcelle Daley DO Status: REG CLI Study: Thyroid Date of Exam: 08/31/16 Exam# [id number] Ordering Dr: Marcelle Daley DO STUDY: THYROID [...] Amarjit Britton DO at 23:35 EST Tel [phone], Service support [phone], CC: Marcelle Daley DO Seafood Technology Specialist: Signed 09-Jun-2016 Bilat Scrn Digital AND CAD Result: Comments: See Note; NOTES: [facility] Imaging Services [address] [place] [address] Verdana 4d Bilat Scrn Digital AND CAD MR#: [id number] Acct: [id number] Name: AMY VALDOVINOS Rep #: [id number] : 1965 F 51 From: Jono Dumont MD PCP: Marcelle Daley DO Status: REG CLI Study: Bilat Scrn Digital AND CAD Date of Exam: 06/09/16 Exam# [id number] Ordering Dr: Tl Daley DO MAMMOGRAPHY - [...] no significant change since the prior study. BI/Bilat Scrn Digital AND CAD IMPRESSION: Stable bilateral screening mammogram. Yearly follow-up mammogram recommended. (A) ASSESSMENT CATEGORY: BIRADS Category 1: Negative. A letter regarding these results will be sent to the patient by the facility within 30 days. Approximately 10% of breast cancers are not detect ed by mammography. A normal mammogram should not delay biopsy of a clinically suspicious abnormality. [id number] Electronically Signed: Jono Dumont MD at 15:05 EDT Tel [phone], Servi ce support [phone], CC: Marcelle Daley DO Seafood Technology Specialist: Signed 09-Jun-2016 Dexa Bone Density Study (HP) Result: Comments: See Note; NOTES: [facility] Imaging Services [address] [place] [address] Verdana 4d Dexa Bone Density Study (HP) MR#: [id number] Acct: [id number] Name: AMY VALDOVINOS Rep #: [id number] : 1965 F 51 From: Jono Dumont MD PCP: Marcelle Daley DO Status: REG CLI Study: Dexa Bone Density Study (HP) Date of Exam: 06/09/16 Exam# [id number] Ordering Dr: Marcelle Daley DO STUDY: DUAL [...] Jono Dumont MD at 8:21 EDT Tel [phone], Service support [phone], CC: Marcelle Daley DO Seafood Technology Specialist: Signed 17-May-2016 Shoulder min 2 Views Result: Comments: See Note; NOTES: [facility] Imaging Services [address] [place] [address] Verdana 4d Shoulder min 2 Views MR#: [id number] Acct: [id number] Name: AMY VALDOVINOS Josephine p #: [id number] : 1965 F 50 From: Jono Dumont MD PCP: Marcelle Daley DO Status: REG CLI Study: Shoulder min 2 Views Date of Exam: 05/17/16 Exam# [id number] Ordering Dr: Marcelle Daley Y: X-RAY - [...] Dumont MD 06/05/27 at 12:52 EDT Tel [phone], Service support [phone], CC: Marcelle Daley DO Seafood Technology Specialist: Signed 17-Mar-2016 Foot min 3 Views Result: Comments: See Note; NOTES: [facility] Imaging Services [address] [place] [address] Verda 4d Foot min 3 Views MR#: [id number] Acct: [id number] Name: AMY VALDOVINOS Rep #: [id number] : 1965 F 50 From: Malcom Emmanuel MD PCP: Marcelle Daley DO Status: REG CLI Study: Foot min 3 Views Date of Exam: 03/17/16 Exam# [id number] Ordering Dr: Marcelle Daley DO STUDY: X-RAY [...] MD at 13:39 EDT , Service support [phone], CC: Marcelle Daley DO Seafood Technology Specialist: Signed 10-Nov-2015 Chest without Contrast Result: Comments: See Note; NOTES: [facility] Imaging Services [address] [place] [address] Verdana 4d Chest without Contrast MR#: [id number] Acct: [id number] Name: AMY GUILLERMO Rep #: [id number] : 1965 F 50 From: Ismael Mejia DO PCP: Marcelle Daley DO Status: REG CLI Study: Chest without Contrast Date of Exam: 11/10/15 Exam# [id number] Ordering Dr: Mabel Daley ra, DO ADDENDUM by Ismael Mejia on 11/23/15 at 0952 ADDENDUM ADDENDUM: Review of the soft ti ssues of the supraclavicular regions demonstrate no evidence of lymphadenopathy or other soft tissue abnormality. Electronically Signed: Ismael Mejia DO at 9:52 EDT Tel [phone], Serv ice support [phone], 11/23/15 0952 Date cc: Marcelle Daley DO [...] Ismael Mejia DO at 21:20 EDT Tel [phone], [employer] support [phone], CC: Marcelle Daley DO Seafood Technology Specialist: Signed 10-Nov-2015 Chest without Contrast Result: Comments: See Note; NOTES: [facility] Imaging Services [address] [place] [address] Verdana 4d Chest without Contrast MR#: [id number] Acct: [id number] Name: AMY GUILLERMO Rep #: [id number] : 1965 F 50 From: Ismael Mejia DO PCP: Marcelle Daley DO Status: REG CLI Study: Chest without Contrast Date of Exam: 11/10/15 Exam# [id number] Ordering Dr: Mabel Daley ra, DO STUDY: [...] Ismael Mejia DO at 21:20 EDT Tel [phone], Service support [phone], CC: Marcelle Daley DO Seafood Technology Specialist: Signed 10-Nov-2015 Thyroid Result: Comments: See Note; NOTES: [facility] Imaging Services [address] [place] [address] Verdana 4d Thyroid MR#: [id number] Acct: [id number] Name: AMY VALDOVINOS Rep #: [id number] : 1965 F 50 From: Jono Dumont MD PCP: Marcelle Daley DO Status: REG CLI Study: Thyroid Date of Exam: 11/10/15 Exam# [id number] Ordering Dr: Marcelle Daley DO STUDY: THYROI [...] Jono swann MD at 10:10 EDT Tel [phone], Service support [phone], CC: Marcelle Daley DO Seafood Technology Specialist: Signed 08-Sep-2015 EKG (72658) Comments: ekg showed normal sinus rhythym, left axis, no acute st/t wave changes lv strain Result: [MEASUREMENTS ANALYSIS] Date of Test: 09/08/2015 12:10:48; Heart Rate: 55; NE Interval: 164; QRS: 114; QT Interval: 462; Corrected QT Interval (QTc): 454; P Wave Creston: 34; QRS Wave Creston: -29; T Wave Axi s: -16; Blood Pressure: 148/98 [ECG DIAGNOSTIC STATEMENTS] Date of Test: 09/08/2015 12:10:48; Summary: Sinus Bradycardia -Left axis. Voltage criteria for LVH (S(V1)+R(V6) exceeds 3.50 mV). -Nonspeci fic ST depression -Seen with left ventricular hypertrophy (strain) or digitalis effect. ABNORMAL 26-May-2015 Bilat Scrn Digital AND CAD Result: Comments: See Note; NOTES: [facility] Imaging Services [address] [place] [address] Breast Imaging Report MR#: [id number] Acct: [id number] Name: AMY VALDOVINOS Rep #: [id number] : 1965 F 50 From: Jono Dumont MD PCP: Marcelle Daley DO Status: REG CLI Study: Bilat Scrn Digital AND CAD Date of Exam: 05/26/15 Exam# [id number] Ordering Dr: Marcelle Daley DO MAMMOGRAPHY - [...] Jono Dumont MD at 15:40 EDT Tel [phone], Service support [phone], CC: Marcelle Daley DO Seafood Technology Specialist: Signed 18-May-2015 Chest PA and Lateral Result: Comments: See Note; NOTES: [facility] Imaging Services [address] [place] [address] Radiology Report MR#: [id number] Acct: [id number] Name: AMY VALDOVINOS Rep #: [id number] : 1965 F 49 From: Jono Dumont MD PCP: Marcelle Daley DO Status: REG CLI Study: Chest PA and Lateral Date of Exam: 05/18/15 Exam# [id number] Ordering Dr: Vivian Washington STUDY: X-RA Y [...] Jono Dumont MD at 14:19 EDT Tel [phone], Service support [phone], RAD/Chest PA and Lateral IMPRESSION: No acute abnormality is seen. Electronically Signed: Jono Dumont MD at 14:19 EDT Tel [phone], Service support [phone], CC: Vivian [place]; Marcelle Daley DO Seafood Technology Specialist: Signed 15-Jan-2015 Chest PA and Lateral Result: Comments: See Note; NOTES: [facility] Imaging Services [address] [place] [address] Radiology Report MR#: [id number] Acct: [id number] Name: AMY VALDOVINOS Rep #: [id number] : 1965 F 49 From: Shine Sawyer MD PCP: Marcelle Daley DO Status: REG CLI Study: Chest PA and Lateral Date of Exam: 01/15/15 Exam# [id number] Ordering Dr: Jing Harrison DO STUDY : [...] MD at 23:41 EDT , Service support [phone], RAD/Chest PA and Lateral IMPRESSION: Normal x-ray examination of the chest. Electronically Signed: Shine Sawyer MD at 23:41 E DT , Service support [phone], CC: Marcelle Daley DO; Jing Harrison DO Seafood Technology Specialist: Signed 15-Jan-2015 Inhaler Demo (93569) Result: Comments: I instructed pt to use inhaler, then she redemonstrated the technique back to me. 15-Jan-2015 Spirometry (94502) Comments: obsrtuction present Result: 29-Oct-2014 Abdomen WITH and W/O Contrast Result: Comments: See Note; NOTES: [facility] Imaging Services [address] [place] [address] MRI Report MR#: [id number] Acct: [id number] Name: AMY VALDOVINOS Rep #: [id number] : 1965 F 49 From: Heavenly Rojas MD PCP: Marcelle Daley DO Status: REG CLI Study: Abdomen WITH and W/O Contrast Date of Exam: 10/29/14 Exam# [id number] Ordering Dr: Stanton Hollingsworth MD STUDY: M [...] for the contrast portion of the examination. e examination is tailored for evaluation of [...] at 1 1:15 EDT , Service support [phone], CC: Marcelle Daley DO; Stanton Hollingsworth MD Seafood Technology Specialist: Signed 23-Jun-2014 Esophagus Only Result: Comments: See Note; NOTES: [facility] Imaging Services [address] [place] [address] Radiology Report MR#: [id number] Acct: [id number] Name: AMY VALDOVINOS Rep #: [id number] : 1965 F 49 From: Jono Dumont MD PCP: Status: REG CLI Study: Esophagus Only Date of Exam: 06/23/14 Exam# [id number] Ordering Dr: Jing Harrison DO STUDY: X-RAY [...] Jono Dumont MD at 9:21 EST Tel [phone], Service support [phone], RAD/Esophagus Only IMPRESSION: Small sliding hiatal hernia with no evidence of gastroesophageal reflux. Electronically Signed: Jono Dumont MD at 9:21 EST Tel [phone], Service support [phone], CC: Jing Harrison DO Seafood Technology Specialist: Signed 23-Jun-2014 Thyroid Result: Comments: See Note; NOTES: [facility] Imaging Services [address] [place] [address] Ultrasound Report MR#: [id number] Acct: [id number] Name: AMY VALDOVINOS Rep #: [id number] : 1965 F 49 From: Jono Dumont MD PCP: Status: REG CLI Study: Thyroid Date of Exam: 06/23/14 Exam# [id number] Ordering Dr: Jing Harrison DO STUDY: THYROID [...] of the thyroid. Correlation with a [facility] thyroid uptake and scan is recommended. Electronically Signed: Jono Dumont MD at 15:38 EST Tel [phone], Service support [phone], C C: Jing Harrison DO Seafood Technology Specialist: Signed 30-Nov-2013 Abdomen/Pelvis WITH Contrast Result: Comments: See Note; NOTES: [facility] Imaging Services [address] [place] [address] CAT Scan Report MR#: [id number] Acct: [id number] Name: AMY VALDOVINOS Rep #: [id number] : 1965 F 48 From: Jesse Carrington MD PCP: Marcelle Daley DO Status: REG CLI Study: Abdomen/Pelvis WITH Contrast Date of Exam: 11/30/13 Exam# [id number] Ordering Dr: Vivian Washington STUDY: CT ABDOMEN [...] Dr. Iglesia Lee M.D.; Stanton Hollingsworth MD Seafood Technology Specialist: Signed 26-Nov-2013 Kidney and Bladder Result: Comments: See Note; NOTES: [facility] Imaging Services [address] [place] [address] Ultrasound Report MR#: [id number] Acct: [id number] Name: AMY VALDOVINOS Rep #: [id number] : 1965 F 48 From: Jono Dumont MD PCP: Marcelle Daley DO Status: REG CLI Study: Kidney and Bladder Date of Exam: 11/26/13 Exam# [id number] Ordering Dr: Vivian Washington STUDY: RENAL ULTRASOUND [...] at 12:56 EDT Tel , Service support [phone], CC: Vivian Daley DO Seafood Technology Specialist: Signed 31-May-2013 Knee 4 or More Views Result: Comments: See Note; NOTES: [facility] Imaging Services [address] [place] [address] Radiology Report MR#: [id number] Acct: [id number] Name: AMY VALDOVINOS Rep #: [id number] : 1965 F 48 From: Jono Dumont MD PCP: Status: REG CLI Study: Knee 4 or More Views Date of Exam: 05/31/13 Exam# [id number] Ordering Dr: Vivian Washington STUDY: X-RAY - [...] May 31, 2013 at 1:16:23 PM EDT [phone] Electronically Signed GP/GP If you are the referring physician and would like to consult with the radiologist w ho provided this interpretation, please contact Jono Dumont M.D. at [phone]. If this radiologist is unavailable, you will be directed to another radiologist to assist. If you are a veronica ent with a question regarding this report, please contact your referring physician directly. Professional Interpretation Provided By: [facility], Phone , These docum ents contain legally [...] destruction of these documents. 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 Status: Active Smoking Status Name Dates Details Never smoker Vital Signs Date Test Result Details :04 Temperature 98 f Comments: Method: Temporal [...] kg/m2 Body Surface Area Calculated 2.25 m2 21-Nuv-753783:59 Temperature 97.9 f Comments: Method: Oral Pulse [...] kg/m2 Body Surface Area Calculated 2.25 m2 47-Gtr-653606:00 Temperature 98.4 f Comments: Method: Oral Pulse [...] 2.21 m2 Results Date Description Value Details 57-Kgs-118274:05 Urinalysis, Office (37498) UA - LEUKOCYTE ESTERASE Negative (Normal) UA - NITRITE Negative (Normal) URINE UROBILINGN JUAN TIMED Normal mg/dL (Normal) UA - PROTEIN Negative mg/dL (Normal) UA - PH 6 (Abnormal) UA - BLOOD Negative (Normal) UA - SPECIFIC GRAVITY 1.010 (Normal) UA - KETONES Negative mg/dL (Normal) UA - BILIRUBIN Negative (Normal) UA - GLUCOSE Negative (Normal) 3-Jbs-796075:26 Free K+L Lt Chains,Qn,S Comments: PATIENT NOT FASTINGPERFORMED BY: PlanG Lbpzvh2403 [facility] [id number]; appt 08/20 Clara/Lambda Ratio,S 1.10 (Normal) Range: 0.26-1.65 Free Lambda Lt Chains,S 10.6 mg/L (Normal) Range: 5.7-26.3 Free Clara Lt Chains,S 11.7 mg/L (Normal) Range: 3.3-19.4 Please note SPRCS (Normal) Comments: PATIENT NOT FASTINGPERFORMED BY: PlanG Jrdaue4741 [facility] [id number] :26 Comments: We have received your request for additional testing or testverification. You will be notified if we are unable to processyour request. Written Authorization WAR (Normal) Comments: PATIENT NOT FASTINGPERFORMED BY: [facility] Xovebb3108 [facility] [id number] :26 Comments: Written Authorization Received.Authorization received from Written Request [id number] by Greta Milligan 9-Jmb-193552:26 urine immunofixation (91532) Comments: PATIENT NOT FASTINGPERFORMED BY: [facility] Jjyapi7599 [facility] [id number] DIANNA Interpretation:U UPEIP (Normal) Comments: No monoclonality detected. 8-Cqm-954516:26 serum immunofixation (01935) Comments: PATIENT NOT FASTINGPERFORMED BY: [facility]6370 [facility] [id number] Immunoglobulin M, Qn, Serum 42 mg/dL (Normal) Range: 26-217 Immunoglobulin A, Qn, Serum 405 mg/dL (Abnormal) Range: 87-352 Immunoglobulin G, Qn, Serum 904 mg/dL (Normal) Range: 700-1600 Immunofixation Result, Serum IFEAL (Normal) Comments: Immunofixation shows IgA monoclonal protein with lambda light chainspecificity. 29-Ccg-229142:39 RHEUMATOID FACTOR-QUANT Comments: send copy to Dr. Evelio Kaur [phone]; A courtesy copy of this report has been sent [phone].PATIENT NOT FASTINGPERFORMED BY: [facility]6370 [facility] [id number] (82451) RA Latex Turbid. <10.0 {IU/mL} (Normal) Range: 0.0-13.9 :39 IMMUNOFIXATION, SERUM (78118) Comments: send copy to Dr. Evelio Kaur [phone]; A courtesy copy of this report has been sent [phone].PATIENT NOT FASTINGPERFORMED BY: [facility]6370 [facility] [id number] remington Information: FX DR MEIER [phone] Immunoglobulin M, Qn, Serum 43 mg/dL (Normal) Range: 26-217 Immunoglobulin A, Qn, Serum 356 mg/dL (Abnormal) Range: 87-352 Immunoglobulin G, Qn, Serum 969 mg/dL (Normal) Range: 700-1600 Immunofixation Result, Serum IFEAL (Normal) Comments: Immunofixation shows IgA monoclonal protein with lambda light chainspecificity. :39 HIV-1 ANTIBODY (18289) Comments: send copy to Dr. Evelio Kaur [phone]; A courtesy copy of this report has been sent [phone].PATIENT NOT FASTINGPERFORMED BY: PlanG Fjgnbm5618 [facility] [id number] HIV Screen 4th Generation wRfx Non Reactive (Normal) 58-Ltp-045533:39 HEPATITIS C ANTIBODY (80274) Comments: send copy to Dr. Evelio Kaur [phone]; A courtesy copy of this report has been sent [phone].PATIENT NOT FASTINGPERFORMED BY: PlanGVirtua BerlinQofrya1920 [facility] [id number] Hep C Virus Ab <0.1 {s/co_ratio} (Normal) Range: 0.0-0.9 Comments: Negative: < 0.8 Indeterminate: 0.8 - 0.9 Positive: > 0.9 . The CDC recommends that a positive HCV antibody result be followed up with a HCV Nucleic Acid Amplification test (733402). 47-Sqf-330225:39 FOLIC ACID SERUM (97625) Comments: send copy to Dr. Fraser [phone]; A courtesy copy of this report has been sent [phone].PATIENT NOT FASTINGPERFORMED BY: PlanGFour Corners Regional Health CenterIugnik0893 [facility] [id number] Folate (Folic Acid), Serum 14.3 ng/mL (Normal) Comments: A serum folate concentration of less than 3.1 ng/mL isconsidered to represent clinical deficiency. 96-Jmc-304895:39 ANTIEXTARACT NUCLEAR AG 6338 Comments: send copy to Dr. Fraser [phone]; A courtesy copy of this report has been sent [phone].PATIENT NOT FASTINGPERFORMED BY: PlanGVirtua BerlinSvkish2504 [facility] [id number] (30672) Up Antibodies <0.2 {AI} (Normal) Range: 0.0-0.9 [facility] C[facility]IER Antibodies <0.2 {AI} (Normal) Range: 0.0-0.9 58-Ixm-838863:39 LOLITA (ANTINUCLEAR ANTIBODY) Comments: send copy to Dr. Fraser - [phone]; A courtesy copy of this report has been sent [phone].PATIENT NOT FASTINGPERFORMED BY: PlanG Xdhghs1426 [facility] [id number] (28845) LOLITA Direct Negative (Normal) 25-Jul-20189:13 Vitamin B-12 (cyanocobalamin) Comments: PATIENT WAS FASTINGPERFORMED BY: PlanG Vadvki6220 [facility] [id number] (48147) Vitamin B12 341 pg/mL (Normal) Range: 232-1245 :13 CBC with auto diff (49631) Comments: PATIENT WAS FASTINGPERFORMED BY: PlanG Oyswli8704 [facility] [id number]; appt 07/27 Immature Grans (Abs) 0.0 {x10E3/uL} [...] PANEL, COMPREHENSIVE Comments: PATIENT WAS FASTINGPERFORMED BY: [employer]70 [place] [facility] [id number] (02553) ALT (SGPT) 19 [iU]/L (Normal) Range: 0-32 [...] Glucose 80 mg/dL (Normal) Range: 65-99 :13 RZWLZ-GYYJPCOIYXT-OMYNN (93915) Comments: PATIENT WAS FASTINGPERFORMED BY: [employer]6370 [place] [facility]CorAt[facility]Park [id number] AFP, Serum, Tumor Marker 3.6 ng/mL (Normal) Range: 0.0-8.3 Comments: Ozzie ECLIA methodology 03-Got-758248:05 URINE KENROY CULTURE-IDENTIFICATN Comments: PATIENT NOT FASTINGPERFORMED BY: [facility]6370 [facility] [id number] Information: SRC:UC (30514) Result 1 MUG (Normal) Comments: Mixed urogenital flora1,000 Colonies/mL Urine Culture,Comprehensive Final report (Normal) 79-Xuy-283951:56 Urinalysis, Office (76247) UA - LEUKOCYTE ESTERASE Trace (Normal) UA - NITRITE Negative (Normal) URINE UROBILINGN JUAN TIMED Normal mg/dL (Normal) UA - PROTEIN Trace mg/dL (Normal) UA - PH 5 (Abnormal) UA - BLOOD Negative (Normal) UA - SPECIFIC GRAVITY 1.030 (Abnormal) UA - KETONES Negative mg/dL (Normal) UA - BILIRUBIN Small (Normal) UA - GLUCOSE Negative (Normal) 13-Wqn-370904:28 CBC, PLATELETS & AUT DIFF Comments: PATIENT WAS FASTINGPERFORMED BY: PlanGVirtua BerlinDpjmam3425 [facility] [id number] (65273) Immature Grans (Abs) 0.0 {x10E3/uL} (Normal) Range: [...] B-12 (CYANOCOBALAMIN) Comments: PATIENT WAS FASTINGPERFORMED BY: TeachbaseDublin [place] [id number] (85907) Vitamin B12 413 pg/mL (Normal) Range: 232-1245 :28 Vitamin D Hydroxy (74876) Comments: PATIENT WAS FASTINGPERFORMED BY: [employer] Bmnnhv0513 Vaca RoadDublin [place] [id number] Vitamin D, 25-Hydroxy 52.6 ng/mL (Normal) Range: 30.0-100.0 Comments: Vitamin D deficiency has been defined by the [place] ofK[facility] Health Hamiltoncine and an Endocrine Society practice guideline as alevel of serum 25-OH vitamin D less than 20 ng/mL (1,2).The Endocrine Society went on to further define vitamin Dinsufficiency as a level between 21 and 29 ng/mL (2).1. IOM ([place] of Medicine). 2010. Dietary reference intakes for calcium and D. [place]: The National Academies Press.2. Myla MF, Javier NC, Panfilo MANN, et al. Evaluation, treatment, and prevention of vitamin D deficiency: an Endocrine Society clinical practice guideline. JCEM. 2010; 96(7):1911-30. 85-Ttl-246221:28 LIPID PANEL (12303) Comments: PATIENT WAS FASTINGPERFORMED BY: [employer] Oqedkd3328 Vaca RoadDublin [place] [id number] LDL/HDL Ratio 1.3 {ratio} (Normal) Range: 0.0-3.2 Comments: LDL/HDL Ratio Men Women 1/2 Avg.Risk 1.0 1.5 Av g.Risk 3.6 3.2 2X Avg.Risk 6.2 5.0 3X Avg.Risk 8.0 6.1 LDL Cholesterol Calc 51 mg/dL (Normal) Range: 0-99 VLDL Cholesterol [place] 11 mg/dL (Normal) Range: 5-40 HDL Cholesterol 38 mg/dL (Abnormal) Triglycerides 55 mg/dL (Normal) Range: 0-149 Cholesterol, Total 100 mg/dL (Normal) Range: 100-199 32-Nsh-776220:38 HgA1C , Office (70844) HgA1C , Office 6.1 % (Normal) Range: 4.6 - 7.1 90-Vqs-676535:28 HGB A1C (17358) Comments: PATIENT WAS FASTINGPERFORMED BY: [employer] [facility] [id number] Hemoglobin A1c 5.6 % (Normal) Range: 4.8-5.6 Comments: . Prediabetes: 5.7 - 6.4 Diabetes: >6.4 Glycemic control for adults with diabetes: <7.0 77-Sty-181818:28 XQFPZ-VVWJQWXBWAM-XOACV (49220) Comments: PATIENT WAS FASTINGPERFORMED BY: [employer] [facility] [id number] AFP, Serum, Tumor Marker 3.6 ng/mL (Normal) Range: 0.0-8.3 Comments: Ozzie ECLIA methodology :28 MICROALBUMIN: CREATININE RATIO Comments: PATIENT WAS FASTINGPERFORMED BY: [employer] [facility] [id number] (11818) AND (46075) Alb/Creat Ratio 4.1 {mg/g_creat} (Normal) Range: 0.0-30.0 Albumin, Urine 5.8 ug/mL (Normal) Creatinine, Urine 139.9 mg/dL (Normal) 60-Tar-551683:28 METABOLIC PANEL, COMPREHENSIVE Comments: PATIENT WAS FASTINGPERFORMED BY: PlanG [employer] [facility] [id number]; review at 05/07 appt (83344) ALT (SGPT) 19 [iU]/L (Normal) Range: 0-32 [...] mg/dL (Normal) Range: 65-99 23-Jan-20188:21 LIPID PANEL (52425) Comments: PATIENT WAS FASTINGPERFORMED BY: [facility]De[facility]6370 [facility] [id number] LDL/HDL Ratio 1.6 {ratio} (Normal) Range: 0.0-3.2 [...] Range: 100-199 :21 CBC W/AUTO DIFF WBC (50222) Comments: PATIENT WAS FASTINGPERFORMED BY: CHUY PlanGVirtua BerlinBptlss7234 [facility] [id number]; review on 01/31 Immature Grans (Abs) 0.0 [...] PANEL, COMPREHENSIVE Comments: PATIENT WAS FASTINGPERFORMED BY: PlanGVirtua BerlinQrlphp3776 [facility] [id number] (59650) ALT (SGPT) 18 [iU]/L (Normal) Range: 0-32 [...] 6-24 Glucose 98 mg/dL (Normal) Range: 65-99 35-Rny-788501:22 TSH (74495) Comments: PATIENT NOT FASTINGPERFORMED BY: Plan[employer] [facility] [id number] TSH 1.150 {uIU/mL} (Normal) Range: 0.450-4.500 87-Uot-075553:22 SED RATE ERYTHROCYTE (35109) Comments: PATIENT NOT FASTINGPERFORMED BY: PasswordBankrp [employer] [facility] [id number] Sedimentation Rate-Westergren 8 mm/h (Normal) Range: 0-40 47-Gom-856720:22 C-REACTIVE PROTEIN (10548) Comments: PATIENT NOT FASTINGPERFORMED BY: LabCoFour Corners Regional Health CenterWynzlj0888 [address] RoadDublin [place] [id number] C-Reactive Protein, Quant 2.5 mg/L (Normal) Range: 0.0-4.9 25-Vkt-315477:22 LOLITA (ANTINUCLEAR ANTIBODY) Comments: PATIENT NOT FASTINGPERFORMED BY: LabCoFour Corners Regional Health CenterLoiafv5932 Vaca RoadDublin [place] [id number] (70140) LOLITA Direct Negative (Normal) 22-Kim-879941:22 VITAMIN B-12 (CYANOCOBALAMIN) Comments: PATIENT NOT FASTINGPERFORMED BY: PlanGVirtua BerlinRuohqb3650 Vaca RoadDublin [place] [id number] (75438) Vitamin B12 340 pg/mL (Normal) Range: 232-1245 24-Gyz-158628:22 IRON (82967) Comments: PATIENT NOT FASTINGPERFORMED BY: PlanGVirtua BerlinQmdwth0757 [address] RoadDublin [place] [id number] Iron, Serum 57 ug/dL (Normal) Range: 27-159 61-Gas-147443:22 FERRITIN (85023) Comments: PATIENT NOT FASTINGPERFORMED BY: PlanGFour Corners Regional Health CenterOlwykh0243 Vaca RoadDublin [place] [id number] Ferritin, Serum 220 ng/mL (Abnormal) Range: 15-150 22-Shi-616276:27 Albumin/Creatinine Comments: PATIENT WAS FASTINGPERFORMED BY: PlanGSusan Ville 9633370 Vaca RoadDublin [place] [id number] BY: [address] [id number] Ratio,Urine Alb/Creat Ratio 5.5 {mg/g_creat} (Normal) Range: 0.0-30.0 Albumin, Urine 9.6 ug/mL (Normal) Creatinine, Urine 176.1 mg/dL (Normal) 50-Isc-017859:27 Vitamin D Hydroxy Comments: PATIENT WAS FASTINGPERFORMED BY: [employer] Ykljzv2499 [address] [facility]in [place] [id number] BY: PlanG[address] [id number] (09214) Vitamin D, 25-Hydroxy 44.1 ng/mL (Normal) Range: 30.0-100.0 Comments: Vitamin D deficiency has been defined by the [place] [facility]cine and an Endocrine Society practice guideline as alevel of serum 25-OH vitamin D less than 20 ng/mL (1,2).The Endocrine Society went on to further define vitamin Dinsufficiency as a level between 21 and 29 ng/mL (2).1. IOM ([place] of Medicine). 2010. Dietary reference intakes for calcium and D. [place]: The National Academies Press.2. Myla MF, Javier STUART, Panfilo MANN, et al. Evaluation, treatment, and prevention of vitamin D deficiency: an Endocrine Society clinical practice guideline. JCEM. 2010; 96(7):1911-30. 18-Dvi-221610:27 HGB A1C (47416) Comments: PATIENT WAS FASTINGPERFORMED BY: [employer]6370 [facility] [id number] BY: PlanG[address] [id number] Hemoglobin A1c 5.7 % (Abnormal) Range: 4.8-5.6 Comments: . Pre-diabetes: 5.7 - 6.4 Diabetes: >6.4 Glycemic control for adults with diabetes: <7.0 41-Xbp-431726:27 WWHRT-OHMKUFJFSRL-CQJQF (62640) Comments: PATIENT WAS FASTINGPERFORMED BY: [employer]6370 [facility] Hospitalin [place] [id number] BY: PlanG[address] [id number] AFP, Serum, Tumor Marker 4.0 ng/mL (Normal) Range: 0.0-8.3 Comments: Ozzie ECLIA methodology 75-Jbt-032902:27 METABOLIC PANEL, Comments: PATIENT WAS FASTINGPERFORMED BY: [employer]70 [facility] [id number] BY: [facility] Gpniekmzss3992 [facility] [id number] COMPREHENSIVE (98583) ALT (SGPT) 21 [iU]/L (Normal) Range: 0-32 [...] Glucose, Serum 84 mg/dL (Normal) Range: 65-99 21-Qxr-689554:27 CBC with auto diff Comments: PATIENT WAS FASTINGPERFORMED BY: [facility] Menofq0720 [facility] [id number] BY: LabCo[address] [id number] (34450) Immature Grans (Abs) 0.0 {x10E3/uL} (Normal) Range: [...] 3.77-5.28 WBC 7.7 {x10E3/uL} (Normal) Range: 3.4-10.8 73-Dzr-965493:27 LIPID PANEL (04688) Comments: PATIENT WAS FASTINGPERFORMED BY: CB [facility] Ecbvts6928 [facility] [id number] BY: BN [facility] Zzddghvsdt8902 [facility] [id number] LDL/HDL Ratio 1.5 {ratio_units} (Normal) Range: 0.0-3.2 Comments: LDL/HDL Ratio Men Women 1/2 Avg.Risk 1.0 1.5 Av g.Risk 3.6 3.2 2X Avg.Risk 6.2 5.0 3X Avg.Risk 8.0 6.1 LDL Cholesterol Calc 69 mg/dL (Normal) Range: 0-99 VLDL Cholesterol [place] 17 mg/dL (Normal) Range: 5-40 HDL Cholesterol 46 mg/dL (Normal) Triglycerides 85 mg/dL (Normal) Range: 0-149 Cholesterol, Total 132 mg/dL (Normal) Range: 100-199 61-Zkh-259589:27 IGA/IGD/IGG/IGM-EACH (39911) Comments: PATIENT WAS FASTINGPERFORMED BY: LabCoVirtua BerlinQxmrgw6391 [facility] [id number] BY: Lab[address] [id number] Immunoglobulin E, Total 18 {IU/mL} (Normal) Range: 0-100 Immunoglobulin M, Qn, Serum 43 mg/dL (Normal) Range: 26-217 Immunoglobulin A, Qn, Serum 332 mg/dL (Normal) Range: 87-352 Immunoglobulin G, Qn, Serum 848 mg/dL (Normal) Range: 700-1600 4-Rju-164394:23 METABOLIC PANEL, COMPREHENSIVE Comments: PATIENT NOT FASTINGPERFORMED BY: PlanGSusan [place] 9633370 [facility] [id number] (88275) ALT (SGPT) 16 [iU]/L (Normal) Range: 0-32 [...] mg/dL (Normal) Range: 65-99 :10 RUBEOLA IgG (45532) Comments: PATIENT NOT FASTINGPERFORMED BY: OriginalSainte Genevieve County Memorial HospitalTgplgi6913 [facility] [id number] Rubeola Ab, IgG 44.9 AU/mL (Normal) Comments: Negative <25.0 Equivocal 25.0 - 29.9 Positive >29.9 Presence of antibodies to Rubeola is presumptive evidence of immunity except when acute infection is suspected. :10 RUBELLA IgG (99869) Comments: PATIENT NOT FASTINGPERFORMED BY: [facility] Oawzno3687 [facility] [id number] Rubella Antibodies, IgG 17.40 {index} (Normal) Comments: Non-immune <0.90 Equivocal 0.90 - 0.99 Immune >0.99 :10 MUMPS IgG (10055) Comments: PATIENT NOT FASTINGPERFORMED BY: [facility] Dnnmgd6318 [facility] [id number] Mumps Abs, IgG >300.0 AU/mL (Normal) Comments: Negative <9.0 Equivocal 9.0 - 10.9 Positive >10.9 A positive result genera lly indicates past exposure to Mumps virus or previous vaccination. 0-Ohe-229384:23 HEPATITIS C ANTIBODY (53974) Comments: PATIENT NOT FASTINGPERFORMED BY: [facility]6370 [facility] [id number] Hep C Virus Ab 0.1 {s/co_ratio} (Normal) Range: 0.0-0.9 Comments: Negative: < 0.8 Indeterminate: 0.8 - 0.9 Positive: > 0.9 . The CDC recommends that a positive HCV antibody result be followed up with a HCV Nucleic Acid Amplification test (888965). :07 AFP, Tumor Marker Comments: Is Patient ? [facility] (refer to report for specific site)refer to report for address and phone number AFP TUMOR 2253 3.9 ng/mL (Normal) Range: 0.0-8.3 Comments: Ozzie ECLIA methodologyPerformed at: - [facility] [address] [id number] Director: Harjinder Houston PhD, Phone: [phone] :[phone] Comprehensive Metabolic Profil Comments: [facility] Jygmpntyzi7638 [address]. [place], [place], [address]1261 GAP 6 (Normal) Range: 5-15 CO2 27.0 [...] 7-18 GLU 80 mg/dL (Normal) Range: 70-110 33-Lbp-942598:07 Hemoglobin A1c Comments: [facility] Lmmpntvmhh1194 [address] ADONAY Chan, [id number] HGB A1C 5.9 % (Normal) Range: 4.2-6.3 47-Jwb-338516:07 Lipid Profile Comments: [facility] Zwhzohvyjj2702 [address]. ADONAY Chan, [id number] VLDL 18 mg/dL (Normal) Range: 5-40 LDL [...] 200-240 mg/dL Borderline >240 mg/dL High Risk 12-Wtp-628130:07 Thyroid Stim Hormone (TSH) Comments: [facility] Jezcdwwzvf2037 [address]. ADONAY Chan, [id number] TSH 1.11 {uIU/mL} (Normal) Range: 0.358-3.74 22-Glv-165567:07 Vitamin B12 401 pg/mL (Normal) Comments: [facility] Sdpffmjqhu0774 [address]. ADONAY Chan, 171631 Range: 211-911 94-Ttp-391090:07 Vitamin D,25 Hydroxy Comments: [facility] Tfkwbfwdvl7575 ADONAY Snell, [id number] Vitamin D 25-OH 37.7 ng/mL (Normal) Comments: Vitamin D 25(OH) Status Range Deficiency <20 ng/mL (50nmol/L) Insuffciency 20 - 30 ng/mL (50 - 75 nmol/L) Sufficiency 30 - 100 ng/mL (75 - 250 nmol/L) Toxicity >100 ng/mL (>250 nmol/L) :54 TSH (97451) Comments: PATIENT WAS FASTINGPERFORMED BY: [facility] Yoijgr7563 [address] RoadDublin [place] [id number] TSH 1.440 {uIU/mL} (Normal) Range: 0.450-4.500 :54 VITAMIN B-12 (CYANOCOBALAMIN) Comments: PATIENT WAS FASTINGPERFORMED BY: LabSaint [facility] Fybmlc2041 V[address] RoadDublin [place] [id number] (33197) Vitamin B12 273 pg/mL (Normal) Range: 211-946 :47 Vitamin D Hydroxy Comments: PATIENT WAS FASTINGPERFORMED BY: PlanG[address] [id number] BY: PlanG Cbyfbh1035 [address] RoadDublin [place] [id number] (05655) Vitamin D, 25-Hydroxy 29.6 ng/mL (Abnormal) Range: 30.0-100.0 Comments: Vitamin D deficiency has been defined by the [place] ofMedicine and an Endocrine Society practice guideline as alevel of serum 25-OH vitamin D less than 20 ng/mL (1,2).The Endocrine Society went on to further define vitamin Dinsufficiency as a level between 21 and 29 ng/mL (2).1. IOM ([place] of Medicine). 2010. Dietary reference intakes for calcium and D. [place]: The National Academies Press.2. Myla MF, Javier STUART, Panfilo MANN, et al. Evaluation, treatment, and prevention of vitamin D deficiency: an Endocrine Society clinical practice guideline. JCEM. 2010; 96(7):1911-30. :47 METABOLIC PANEL, Comments: PATIENT WAS FASTINGPERFORMED BY: PlanG[address] [id number] BY: OriginalSaint [facility] Zjbaru3620 [address] RoadDublin [place] [id number] COMPREHENSIVE (34409) ALT (SGPT) 21 [iU]/L (Normal) Range: 0-32 [...] Glucose, Serum 87 mg/dL (Normal) Range: 65-99 4-Dcu-473301:47 LIPOPROTEIN, BLD, BY NMR Comments: PATIENT WAS FASTINGPERFORMED BY: BN [facility] [address] [id number] BY: CB [facility] [address] [id number] Information: P46103, 362344 (83864) LP-IR Score 69 (Abnormal) Comments: INSULIN RESISTANCE MARKER <--Insulin Sensitive Insulin Resistant--> Percentile in Reference PopulationInsulin Resistance ScoreLP-IR Score Low 25th 50th 75th High <27 27 45 63 >63LP-IR Score is inaccurate if patient is non-fasting. .The LP-IR score is a laboratory developed i [facility] that has beenassociated with insulin resistance and [...] were developed and their performance characteristicsdetermined by [employer]. These assays have not been cleared by [...] 1600 - 2000 Very High > 2000 3-Opj-853031:47 MICROALBUMIN: CREATININE Comments: PATIENT WAS FASTINGPERFORMED BY: OriginalJessica Ville 703757 [facility] [id number] BY: [facility]6370 [facility] [id number] RATIO (08873) AND (58467) Microalb/Creat Ratio 10.3 {mg/g_creat} (Normal) Range: 0.0-30.0 Microalbumin, Urine 16.3 ug/mL (Normal) Creatinine, Urine 157.7 mg/dL (Normal) 9-Arb-330957:47 HGB A1C (88049) Comments: PATIENT WAS FASTINGPERFORMED BY: LabC-samTiffany Ville 897567 [facility] [id number] BY: [place] 4126070 [facility] [id number] Hemoglobin A1c 6.1 % (Abnormal) Range: 4.8-5.6 Comments: . Pre-diabetes: 5.7 - 6.4 Diabetes: >6.4 Glycemic control for adults with diabetes: <7.0 :4 ASPIRATION (SLIDES ONLY) See Note (Normal) Comments: [facility] Hgkbzmzpxe2699 [place], [address] 5 Comments: Patient: AMY VALDOVINOS : 1965 (51/F) Acct Num: [id number] Phys: Richar Fairchild MD Unit Num: [id number] Loc: LABSPEC Specimen: [id number] Received: 10/07/16 - 1206 Spec Type: ASPIRATION TISSUES TISSUES: COMMENT The specimen is paucicellular and contains rare benign follicular cells and focal chronic inflammatory cells. Clinical correlation is suggested. CYTOLOGY GROSS Received are eight smears labeled with the patient's name and designated per therequisition as FNA left thyroid. Submitted for staining. 10/07/16 TC:5 CPT: 92780 CYTOLOGY STUDY Slides are reviewed. DIAGNOSIS CYTOLOGY Fine needle aspiration, left thyroid nodule (smears): Negative, consistent with colloid nodule. AM:cecil 10/10/16 HEADER OPERATION: Ult rasound-guided fine needle aspiration, left thyroid PRE-OP DIAGNOSIS: Multinodular goiter E04.2 TISSUE SUBMITTED: Fine needle aspiration, left thyroid (8 slides) Signed Enio Dhaliwal 10/10/16 <signature on file> 3-Rzg-413562:56 NOQOR-ZERGTZELLIJ-PNDVO (26710) Comments: PATIENT WAS FASTINGPERFORMED BY: [employer] [address] [id number] BY: [employer] Giqpnc7360 Vaca RoadDublin [place] [id number] AFP, Serum, Tumor Marker 3.2 ng/mL (Normal) Range: 0.0-8.3 Comments: Ozzie ECLIA methodology :56 VITAMIN B-12 (CYANOCOBALAMIN) Comments: PATIENT WAS FASTINGPERFORMED BY: Conserv[employer] LabC-samrp Wtlxqsbtid6139 [facility] [id number] BY: Veezeon LabSearchMe Xerufz2860 [address]aca RoadDublin [place] [id number] (48046) Vitamin B12 302 pg/mL (Normal) Range: 211-946 :56 Vitamin D Hydroxy Comments: PATIENT WAS FASTINGPERFORMED BY: LabWorldHeartQaakcnxjvn[address] [id number] BY: LabC-sam Nuiuhi7804 Vaca RoadDublin [place] [id number] (02955) Vitamin D, 25-Hydroxy 25.1 ng/mL (Abnormal) Range: 30.0-100.0 Comments: Vitamin D deficiency has been defined by the [place] ofMedicine and an Endocrine Society practice guideline as alevel of serum 25-OH vitamin D less than 20 ng/mL (1,2).The Endocrine Society went on to further define vitamin Dinsufficiency as a level between 21 and 29 ng/mL (2).1. IOM ([place] of Medicine). 2010. Dietary reference intakes for calcium and D. [place]: The National Academies Press.2. Myla SIMS, Javier NC, Panfilo MANN, et al. Evaluation, treatment, and prevention of vitamin D deficiency: an Endocrine Society clinical practice guideline. JCEM. 2010; 96(7):1911-30. 2-Cdp-397733:56 CBC W/AUTO DIFF WBC Comments: PATIENT WAS FASTINGPERFORMED BY: BN [facility] Gwcqlvodbk8385 [facility] [id number] BY: CB [facility] Hhlizk6800 [facility] [id number] (10989) Immature Grans (Abs) 0.0 {x10E3/uL} (Normal) Range: [...] 3.77-5.28 WBC 9.9 {x10E3/uL} (Normal) Range: 3.4-10.8 5-Mbu-297490:56 METABOLIC PANEL, Comments: PATIENT WAS FASTINGPERFORMED BY: LabCoTiffany Ville 897567 [facility] [id number] BY: LabC-sam[address] [id number] COMPREHENSIVE (40725) ALT (SGPT) 18 [iU]/L (Normal) Range: 0-32 [...] Glucose, Serum 89 mg/dL (Normal) Range: 65-99 9-Amk-290123:56 LIPOPROTEIN, BLD, BY NMR Comments: PATIENT WAS FASTINGPERFORMED BY: LabCo[address] [id number] BY: LabC-samSusan Ville 9633370 [facility] [id number] (48499) LP-IR Score 66 (Abnormal) Comments: INSULIN RESISTANCE MARKER <--Insulin Sensitive Insulin Resistant--> Percentile in Reference PopulationInsulin Resistance ScoreLP-IR Score Low 25th 50th 75th High <27 27 45 63 >63LP-IR Score is inaccurate if patient is non-fasting. .The LP-IR score is a laboratory developed i [facility] that has beenassociated with insulin resistance and [...] were developed and their performance characteristicsdetermined by [employer]. These assays have not been cleared by [...] 1600 - 2000 Very High > 2000 9-Pje-327005:10 HgA1C , Office (90639) HgA1C , Office 5.8 % (Normal) Range: 4.6 - 7.1 9-Jhx-824908:10 Blood Glucose , Office (01326) Blood Glucose , Office 80 (Normal) 05-Wje-563574:18 Magnesium (12816) Comments: PATIENT NOT FASTINGPERFORMED BY: DB NetworksLifeBrite [facility] [id number] Magnesium, Serum 2.3 mg/dL (Normal) Range: 1.6-2.3 :35 ZNRKX-PTXXZGTJGKV-NNABY (76366) Comments: PATIENT WAS FASTINGPERFORMED BY: [employer]6370 [facility] [id number] AFP, Serum, Tumor Marker 3.0 ng/mL (Normal) Range: 0.0-8.3 Comments: Ozzie ECLIA methodology :35 CBC W/AUTO DIFF WBC Comments: PATIENT WAS FASTINGPERFORMED BY: [employer]70 [facility] [id number] Information: [id number] (96032) Immature Grans (Abs) 0.0 {x10E3/uL} (Normal) Range: [...] PANEL, COMPREHENSIVE Comments: PATIENT WAS FASTINGPERFORMED BY: LabCoVirtua BerlinZvevtm6683 [facility] [id number] (94097) ALT (SGPT) 14 [iU]/L (Normal) Range: 0-32 [...] Glucose, Serum 83 mg/dL (Normal) Range: 65-99 91-Kpt-924202:10 CBC W/AUTO DIFF WBC Comments: PATIENT WAS FASTINGPERFORMED BY: LabCoVirtua BerlinCbsasl5214 [facility] [id number] Information: [id number] (77771) Immature Grans (Abs) 0.0 {x10E3/uL} (Normal) Range: [...] 3.77-5.28 WBC 7.1 {x10E3/uL} (Normal) Range: 3.4-10.8 87-Nys-508472:10 METABOLIC PANEL, COMPREHENSIVE Comments: PATIENT WAS FASTINGPERFORMED BY: PlanGVirtua BerlinLkmhrl0039 [facility] [id number] (91103) ALT (SGPT) 14 [iU]/L (Normal) Range: 0-32 [...] Glucose, Serum 79 mg/dL (Normal) Range: 65-99 58-Ppe-745320:10 TSH (60621) Comments: PATIENT WAS FASTINGPERFORMED BY: PlanGFour Corners Regional Health CenterZxljrd6985 [facility] [id number] TSH 0.891 {uIU/mL} (Normal) Range: 0.450-4.500 29-Kqm-255928:10 LIPID PANEL (34434) Comments: PATIENT WAS FASTINGPERFORMED BY: LabCo Sbhdzd0989 [facility] [id number] LDL/HDL Ratio 2.0 {ratio_units} Range: 0.0-3.2 (Normal) [...] ASPIRATION (SLIDES ONLY) See Note (Normal) Comments: [facility] Ewhgopptct[address] [place], [address] :50 Comments: Patient: AMY VALDOVINOS : 1965 (50/F) Acct Num: [id number] Phys: Devorah DÍAZ,Richar Unit Num: [id number] Loc: LABSPEC Specimen: [id number] Received: 12/15/15 - [...] colloid nodule. See cytology study and comment. MINI:cecil 12/16/15 HEADER OPERATION: US guided FNA right thyroid PRE-OP DIAGNOSIS : E04.2 multinodular goiter TISSUE SUBMITTED: Slides from right thyroid FNA Signed Alexis Levi 12/16/15 <signature on file> :19 TSH (92348) Comments: PATIENT NOT FASTINGPERFORMED BY: [facility]6[address] [facility] [id number] TSH 1.250 {uIU/mL} (Normal) Range: 0.450-4.500 30-Upv-061663:19 T4, FREE (THYROXINE) Comments: PATIENT NOT FASTINGPERFORMED BY: [facility]De[facility]6370 [facility] [id number] Information: [id number] (31086) T4,Free(Direct) 1.12 ng/dL (Normal) Range: 0.82-1.77 :19 T3, FREE (TRIDOTHYRONINE) (44301) Comments: PATIENT NOT FASTINGPERFORMED BY: [facility]6370 [facility] [id number] Triiodothyronine,Free,Serum 3.3 pg/mL (Normal) Range: 2.0-4.4 27-Avj-288067:15 SED RATE ERYTHROCYTE (21877) Comments: PATIENT NOT FASTINGPERFORMED BY: [facility]6370 [facility] [id number] Sedimentation Rate-Westergren 6 mm/h (Normal) Range: 0-40 11-Pcq-144929:15 C-REACTIVE PROTEIN (52047) Comments: PATIENT NOT FASTINGPERFORMED BY: [facility]6370 [facility] [id number] C-Reactive Protein, Quant 3.9 mg/L (Normal) Range: 0.0-4.9 30-Dft-476326:15 METABOLIC PANEL, COMPREHENSIVE Comments: PATIENT NOT FASTINGPERFORMED BY: [facility]6370 [facility] [id number] (89754) ALT (SGPT) 35 [iU]/L (Abnormal) Range: 0-32 [...] Glucose, Serum 76 mg/dL (Normal) Range: 65-99 70-Bbu-500670:15 EBV Panel (88337) Comments: PATIENT NOT FASTINGPERFORMED BY: [facility] Dekgyg1656 [facility] [id number] Interpretation: SPRCS (Normal) Comments: EBV Interpretation Chart [...] <36.0 Equivocal 36.0 - 43.9 Positive >43.9 56-Dsx-267427:15 CBC, PLATELETS & MANUAL Comments: PATIENT NOT FASTINGPERFORMED BY: LabCoVirtua BerlinJkonbx2386 [facility] [id number] Information: [id number] DIFF (54936) Immature Grans (Abs) 0.0 {x10E3/uL} (Normal) Range: [...] 3.77-5.28 WBC 8.8 {x10E3/uL} (Normal) Range: 3.4-10.8 00-Zxt-243497:00 CBC with auto diff Comments: PERFORMED BY: PlanGVirtua BerlinUnwhfx9333 [facility] [id number] Information: NURSE DRAW (39018) Immature Grans (Abs) 0.0 {x10E3/uL} (Normal) Range: [...] 3.77-5.28 WBC 8.6 {x10E3/uL} (Normal) Range: 3.4-10.8 59-Fku-751536:00 METABOLIC PANEL, COMPREHENSIVE Comments: PERFORMED BY: PlanGVirtua BerlinBevgos7122 [facility] [id number] (82004) ALT (SGPT) 19 [iU]/L (Normal) Range: 0-32 [...] Glucose, Serum 93 mg/dL (Normal) Range: 65-99 57-Sxp-248112:00 ITZNE-BMVPNXNNHNJ-IHMWM (00344) Comments: PERFORMED BY: [employer]70 [facility] [id number] AFP, Serum, Tumor Marker 3.2 ng/mL (Normal) Range: 0.0-8.3 Comments: Ozzie ECLIA methodology 17-Nya-545425:28 HgA1C , Office (67179) HgA1C , Office 5.9 % (Normal) Range: 4.6 - 7.1 3-Tks-771594:22 URINE KENROY CULTURE-JUAN COL Comments: PATIENT NOT FASTINGPERFORMED BY: [employer] Jdmptd4889 [facility] [id number] Information: SRC:[facility] [id number] COUNT (19382) Result 1 NG36 (Normal) Comments: No growth in 36 - 48 hours. Urine Culture,Comprehensive Final report (Normal) 7-Lyp-954352:36 Urinalysis, Office (51935) UA - LEUKOCYTE ESTERASE Small (Normal) UA - NITRITE Negative (Normal) URINE UROBILINGN JUAN TIMED Normal mg/dL (Normal) UA - PROTEIN Negative mg/dL (Normal) UA - PH 6.5 (Normal) UA - BLOOD Negative (Normal) UA - SPECIFIC GRAVITY 1.005 (Normal) UA - KETONES Negative mg/dL (Normal) UA - BILIRUBIN Negative (Normal) UA - GLUCOSE Negative (Normal) 09-Dgl-575588:04 CBC W/AUTO DIFF WBC Comments: PATIENT WAS FASTINGPERFORMED BY: [facility] Xtvugn2013 [facility] [id number] Information: [id number] (46211) Immature Grans (Abs) 0.0 {x10E3/uL} (Normal) Range: [...] PANEL, COMPREHENSIVE Comments: PATIENT WAS FASTINGPERFORMED BY: LabCoVirtua BerlinTukawe4368 [facility] [id number] (41326) ALT (SGPT) 20 [iU]/L (Normal) Range: 0-32 [...] Glucose, Serum 74 mg/dL (Normal) Range: 65-99 52-Gie-745040:04 LIPID PANEL (67489) Comments: PATIENT WAS FASTINGPERFORMED BY: [facility]6370 [facility] [id number]; apt. 9-25-15 LDL/HDL Ratio 2.1 {ratio_units} Range: [...] ng/mL (Normal) Comments: PATIENT WAS FASTINGPERFORMED BY: PlanGVirtua BerlinAnweke4633 [facility] [id number] 59:38 Marker Range: 0.0-8.3 Comments: Ozzie ECLIA methodology 61-Dzy-51221:38 CBC With Differential/Platelet Comments: PATIENT WAS FASTINGPERFORMED BY: [facility]6370 [facility] [id number] Information: [id number] Immature Grans (Abs) 0.0 {x10E3/uL} (Normal) Range: [...] Panel (14) Comments: PATIENT WAS FASTINGPERFORMED BY: [facility]6370 [facility] [id number] ALT (SGPT) 13 [iU]/L (Normal) Range: 0-32 [...] % (Abnormal) Comments: PATIENT WAS FASTINGPERFORMED BY: [facility] [id number]; f/u on 02/06 38 Range: 4.8-5.6 Comments: . Increased risk for diabetes: 5.7 - 6.4 Diabetes: >6.4 Glycemic control for adults with diabetes: <7.0 :38 Lipid Panel With LDL/HDL Comments: PATIENT WAS FASTINGPERFORMED BY: [facility] [id number] Ratio LDL/HDL Ratio 3.1 {ratio_units} (Normal) Range: [...] Randm Ur Comments: PATIENT WAS FASTINGPERFORMED BY: [facility] [id number] Microalb/Creat Ratio 19.0 {mg/g_creat} Range: 0.0-30.0 (Normal) Microalbumin, Urine 23.5 ug/mL (Abnormal) Range: 0.0-17.0 Creatinine, Urine 124.0 mg/dL (Normal) Range: 15.0-278.0 05-Feb-2015 Vitamin D, 25-Hydroxy 32.7 ng/mL (Normal) Comments: PATIENT WAS FASTINGPERFORMED BY: [facility] Pdbtqz6305 [address] [place] [id number] 9:38 Range: 30.0-100.0 Comments: Vitamin D deficiency has been defined by the [place] of[place]icine and an Endocrine Society practice guideline as alevel of serum 25-OH vitamin D less than 20 ng/mL (1,2).The Endocrine Society went on to further define vitamin Dinsufficiency as a level between 21 and 29 ng/mL (2).1. IOM ([place] of Medicine). 2010. Dietary reference intakes for calcium and D. [place]: The National Academies Press.2. Myla MF, Javier STUART, Panfilo MANN, et al. Evaluation, treatment, and prevention of vitamin D deficiency: an Endocrine Society clinical practice guideline. JCEM. 2010; 96(7):1911-30. 79-Aqi-431103:49 Comprehensive Metabolic Profil Comments: STAT CREATININE FOR MRITest performed at:[facility] Vmsuiuictz0815 Jennifer LaurenK[place], [place] [address] ; Afua GAP 3 (Abnormal) Range: 5-15 [...] 7-18 GLU 82 mg/dL (Normal) Range: 70-110 57-Fvy-839832:49 Hemoglobin A1c Comments: Test performed at:[facility] Rgaqtyvyxp9163 [facility]. [place], [place] [address] HGB A1C 5.7 % (Normal) Range: 4.2-6.3 :49 Lipid Profile Comments: STAT CREATININE FOR MRITest performed at:[facility] Xdruzrwfei8202 [facility] [place] [address] VLDL 25 mg/dL (Normal) Range: [...] 200-240 mg/dL Borderline >240 mg/dL High Risk 05-Qls-077512:49 Vitamin D,25 Hydroxy Comments: Test performed at:[facility] Jpigndpjcb4070 [facility]. [place], [place] [address] Vitamin D 25-OH 76.3 ng/mL (Normal) Comments: Vitamin D 25(OH) Status Range Deficiency <20 ng/mL (50nmol/L) Insuffciency 20 - 30 ng/mL (50 - 75 nmol/L) Sufficiency 30 - 100 ng/mL (75 - 250 nmol/L) Toxicity >100 ng/mL (>250 nmol/L) 6-Ilm-216050:15 Culture, Urine Comments: Test performed at:[facility] Koyzlirkth[address] [place] [address] CUUR See Note (Normal) Comments: Urine CultureORGANISM 1: Mixed Gram Positive OrganismsColony Count 11,000-25,000MIX CONTAM Mixed Contaminants. Submit new specimen if indicated. 4-Fyo-156162:23 Lipid Panel (20079) Comments: PATIENT WAS FASTINGPERFORMED BY: PlanGVirtua BerlinMepjha3108 [facility] [id number] LDL/HDL Ratio 2.9 {ratio_units} (Normal) Range: 0.0-3.2 [...] Cholesterol, Total 164 mg/dL (Normal) Range: 100-199 :23 Metabolic Panel, Comments: PATIENT WAS FASTINGPERFORMED BY: PlanGVirtua BerlinXynged0029 [facility] [id number] Information: [id number] Comprehensive (05193) ALT (SGPT) 24 [iU]/L (Normal) Range: 0-32 [...] Glucose, Serum 94 mg/dL (Normal) Range: 65-99 88-Tts-369125:49 CALCIFEDIOL (78043) Comments: PATIENT NOT FASTINGPERFORMED BY: [facility]6370 [facility] [id number] Vitamin D, 25-Hydroxy 18.9 ng/mL (Abnormal) Range: 30.0-100.0 Comments: Vitamin D deficiency has been defined by the [place] ofMedicine and an Endocrine Society practice guideline as alevel of serum 25-OH vitamin D less than 20 ng/mL (1,2).The Endocrine Society went on to further define vitamin Dinsufficiency as a level between 21 and 29 ng/mL (2).1. IOM ([place] of [employer]). 2010. Dietary reference intakes for calcium and D. [place]: The National Academies Press.2. Myla MF, Javier NC, Panfilo MANN, et al. Evaluation, treatment, and prevention of vitamin D deficiency: an Endocrine Society clinical practice guideline. JCEM. 2010; 96(7):1911-30. 84-Xjv-063111:52 Hemoglobin A1c Comments: Test performed at:[facility] Curgdlykvl[address] [place] [address] HGB A1C 6.4 % (Abnormal) Range: 4.2-6.3 16-Xpy-005705:52 Lipid Profile Comments: Test performed at:[facility] Izyxrjicon2939 [facility] [place] [address] VLDL 35 mg/dL (Normal) Range: [...] 200-240 mg/dL Borderline >240 mg/dL High Risk 77-Jwv-034224:52 Liver Profile Comments: Test performed at:[facility] [address] [place] [address] D BILI 0.10 mg/dL (Normal) Range: 0.00-0.30 T BILI 0.50 mg/dL (Normal) Range: 0.00-4.00 ALT 43 U/L (Normal) Range: 12-78 ALK P 92 U/L (Normal) Range: 50-136 AST 18 U/L (Normal) Range: 15-37 GLOB 3.5 g/dL (Normal) Range: 2.7-4.2 ALB 4.0 g/dL (Normal) Range: 3.4-5.0 T PROT 7.5 g/dL (Normal) Range: 6.4-8.2 23-Eas-593319:50 Serum Creatinine AND GFR Comments: Has pt arrived? YTest performed at:[facility] Dppwggpspc4079 [place] [address] EST GFR - AA 86 mL/min (Normal) EST GFR 71 mL/min (Normal) CREAT,SERUM 0.9 mg/dL (Normal) Range: 0.6-1.0 45-Tpi-996364:38 Hepatic Function Panel Comments: PATIENT WAS FASTINGPERFORMED BY: [facility] Dnbxxw9586 [facility] [id number] Information: [id number] (7) ALT (SGPT) 36 [iU]/L (Abnormal) Range: 0-32 AST (SGOT) 23 [iU]/L (Normal) Range: 0-40 Alkaline Phosphatase, S 107 [iU]/L (Normal) Range: 39-117 Bilirubin, Direct 0.13 mg/dL (Normal) Range: 0.00-0.40 Bilirubin, Total 0.3 mg/dL (Normal) Range: 0.0-1.2 Albumin, Serum 4.7 g/dL (Normal) Range: 3.5-5.5 Protein, Total, Serum 7.3 g/dL (Normal) Range: 6.0-8.5 01-Jul-2014 Written Authorization WAR (Normal) Comments: PATIENT WAS FASTINGPERFORMED BY: PlanG Mjixcj9193 [facility]Life[facility] [id number] 13:38 Comments: Written Authorization Received.Authorization received from GEORGE OSCAR LPN [id number] by Sandrita Onofre 68-Ngn-976366:38 CALCIFEDIOL (85562) Comments: PATIENT WAS FASTINGPERFORMED BY: LabC-samrp Fibbcr3679 [facility] [place] [id number] Vitamin D, 25-Hydroxy 30.1 ng/mL (Normal) Range: 30.0-100.0 Comments: Vitamin D deficiency has been defined by the [place] ofMedicine and an Endocrine Society practice guideline as alevel of serum 25-OH vitamin D less than 20 ng/mL (1,2).The Endocrine Society went on to further define vitamin Dinsufficiency as a level between 21 and 29 ng/mL (2).1. IOM ([place] of Medicine). 2010. Dietary reference intakes for calcium and D. [place]: The National Academies Press.2. Myla MF, Javier NC, Katlyn-Cem MANN, et al. Evaluation, treatment, and prevention of vitamin D deficiency: an Endocrine Society clinical practice guideline. JCEM. 2010; 96(7):1911-30. 88-Ldm-730883:38 LIPID PANEL (50772) Comments: PATIENT WAS FASTINGPERFORMED BY: [facility] Mftzgs9143 [facility] [id number] Information: [id number] LDL/HDL Ratio 4.2 {ratio_units} (Abnormal) Range: 0.0-3.2 [...] Cholesterol, Total 224 mg/dL (Abnormal) Range: 100-199 28-Iky-669468:49 HEPATIC FUNCTION PANEL Comments: PATIENT NOT FASTINGPERFORMED BY: [employer]6370 [facility]LifeB[facility] [id number] Information: [id number] (69391) ALT (SGPT) 193 [iU]/L (Abnormal) Range: 0-32 AST (SGOT) 43 [iU]/L (Abnormal) Range: 0-40 Alkaline Phosphatase, S 135 [iU]/L (Abnormal) Range: 39-117 Bilirubin, Direct 0.18 mg/dL (Normal) Range: 0.00-0.40 Bilirubin, Total 0.3 mg/dL (Normal) Range: 0.0-1.2 Albumin, Serum 4.1 g/dL (Normal) Range: 3.5-5.5 Protein, Total, Serum 6.7 g/dL (Normal) Range: 6.0-8.5 52-Yuo-138427:49 HEPATITIS PANEL (86579) Comments: PATIENT NOT FASTINGPERFORMED BY: [employer] Yvdhzm5705 [address] [facility] [id number] Hep C Virus Ab <0.1 {s/co_ratio} (Normal) Range: 0.0-0.9 Comments: Negative: < 0.8 Indeterminate: 0.8 - 0.9 Positive: > 0.9 . In order to reduce the incidence of a false positive result, the CDC recommends that all s/co ratios between 1.0 and 10.9 be confirmed by a more specific supplemental or PCR testing. [facility] offers [facility] Ab w/Reflex to Verification test #[id number]. Hep B Core Ab, IgM Negative (Normal) HBsAg Screen Negative (Normal) Hep A Ab, IgM Negative (Normal) 82-Ohl-279007:49 ANTIMITOCHONDRIAL ANTIBODY Comments: PATIENT NOT FASTINGPERFORMED BY: [facility]6370 [facility] [id number] (25936) Atypical pANCA <1:20 {titer} (Normal) Comments: The [...] Pathol 1999;111:507-513. Cytoplasmic (C-ANCA) <1:20 {titer} (Normal) 24-Ziz-543059:49 TRANSFERRIN (33087) Comments: PATIENT NOT FASTINGPERFORMED BY: [facility]6370 [facility] [id number] Transferrin 259 mg/dL (Normal) Range: 200-370 56-Uck-435558:49 GGT (GAMMA GLUTAMYLTRANSFERASE) Comments: PATIENT NOT FASTINGPERFORMED BY: [facility] [place] [address] [id number] (04727) GGT 385 [iU]/L (Abnormal) Range: 0-60 96-Owy-480092:49 FERRITIN (40366) Comments: PATIENT NOT FASTINGPERFORMED BY: [facility]6370 [facility] [id number] Ferritin, Serum 447 ng/mL (Abnormal) Range: 15-150 78-Lut-345187:49 CMV IGM ANTBDY (34408) Comments: PATIENT NOT FASTINGPERFORMED BY: [place] 4126070 [facility] [id number] Cytomegalovirus (CMV) Ab, IgM <30.0 AU/mL (Normal) Range: 0.0-29.9 Comments: Negative <30.0 Equivocal 30.0 - 34.9 Positive >34.9 A positive result is generally indicative of acute infection, reactivation or persistent IgM production. 27-Gkd-908987:49 CERULOPLASMIN (65580) Comments: PATIENT NOT FASTINGPERFORMED BY: [address] [id number] Ceruloplasmin 29.9 mg/dL (Normal) Range: 16.0-45.0 86-Ain-199231:49 ASM (ANTI SMOOTH MUSCLE Comments: PATIENT NOT FASTINGPERFORMED BY: [address] [id number] ANTIBODY) (99084) Actin (Smooth Muscle) Antibody 5 {Units} (Normal) Range: 0-19 Comments: Negative 0 - 19 Weak positive 20 - 30 Moderate to strong positive >30 . Actin Antibodies are found in 52-85% of patients with autoimmune hepatitis or chronic active hepatitis and in 22% of patients with primary biliary cirrhosis. 37-Yvg-932663:49 ANTI-LIVER/KIDNEY MICROSOMAL Comments: PATIENT NOT FASTINGPERFORMED BY: OriginalBrittney [place] 1676870 [facility] [id number] ANTIBODY (41182) Thyroid Peroxidase (TPO) Ab 9 {IU/mL} (Normal) Range: 0-34 45-Ide-730464:49 LOLITA (ANTINUCLEAR ANTIBODY) Comments: PATIENT NOT FASTINGPERFORMED BY: [address] [id number] (45745) LOLITA Direct Negative (Normal) 21-Pgz-051543:49 TSH (90250) Comments: PATIENT NOT FASTINGPERFORMED BY: [address] [id number] TSH 1.520 {uIU/mL} (Normal) Range: 0.450-4.500 43-Jic-060957:49 T4, FREE (THYROXINE) (71443) Comments: PATIENT NOT FASTINGPERFORMED BY: CB [facility] Lfjzrh0340 [address] RoadDublin [place] [id number] T4,Free(Direct) 0.97 ng/dL (Normal) Range: 0.82-1.77 97-Hjs-455691:49 T3, FREE (TRIDOTHYRONINE) (78118) Comments: PATIENT NOT FASTINGPERFORMED BY: CB [facility] Hpzesk1288 [address]aca RoadDublin [place] [id number] Triiodothyronine,Free,Serum 3.2 pg/mL (Normal) Range: 2.0-4.4 45-Gky-454402:23 Throat Culture (84919) Comments: PATIENT NOT FASTINGPERFORMED BY: CB [facility] Htyxbq2710 [address] RoadDublin [place] [id number] Information: SRC:GREG [id number] Result 1 RRF (Normal) Comments: Routine respiratory edith Upper Respiratory Culture Final report (Normal) 50-Mcy-32217:36 Rapid Strep Test, Office (81708) Rapid Strep Test, Office Negative (Normal) 36-Qxh-83470:38 CALCIFEDIOL (44142) Comments: PATIENT WAS FASTINGPERFORMED BY: CB [facility] Ylafpo1402 [address] RoadDublin [place] [id number] Vitamin D, 25-Hydroxy 16.2 ng/mL (Abnormal) Range: 30.0-100.0 Comments: Vitamin D deficiency has been defined by the [place] ofMedicine and an Endocrine Society practice guideline as alevel of serum 25-OH vitamin D less than 20 ng/mL (1,2).The Endocrine Society went on to further define vitamin Dinsufficiency as a level between 21 and 29 ng/mL (2).1. IOM ([place] of Medicine). 2010. Dietary reference intakes for calcium and D. [place]: The National Academies Press.2. Myla MF, Javier NC, Panfilo MANN, et al. Evaluation, treatment, and prevention of vitamin D deficiency: an Endocrine Society clinical practice guideline. JCEM. 2010; 96(7):1911-30. :38 Lipid Panel (29831) Comments: PATIENT WAS FASTINGPERFORMED BY: CB [facility] Fjovdz7127 [address]aca RoadDublin [place] [id number] Information: [id number] LDL/HDL Ratio 3.8 {ratio_units} (Abnormal) Range: 0.0-3.2 [...] FUNCTION PANEL Comments: PATIENT WAS FASTINGPERFORMED BY: [employer]70 [facility] [id number] (99560) ALT (SGPT) 446 [iU]/L (Abnormal) Range: 0-32 AST (SGOT) 119 [iU]/L (Abnormal) Range: 0-40 Alkaline Phosphatase, S 176 [iU]/L (Abnormal) Range: 39-117 Bilirubin, Direct 0.59 mg/dL (Abnormal) Range: 0.00-0.40 Bilirubin, Total 1.2 mg/dL (Normal) Range: 0.0-1.2 Albumin, Serum 4.2 g/dL (Normal) Range: 3.5-5.5 Protein, Total, Serum 7.0 g/dL (Normal) Range: 6.0-8.5 :24 Metabolic Panel, Comprehensive Comments: PATIENT NOT FASTINGPERFORMED BY: [id number] [facility] [id number] ([id number]) ALT (SGPT) 40 [iU]/L (Abnormal) Range: 0-32 [...] Glucose, Serum 108 mg/dL (Abnormal) Range: 65-99 [id number] CBC, Platelets & Auto Comments: PATIENT NOT FASTINGPERFORMED BY: [facility] Fdozuy3463 [facility] [id number] Information: [id number] Diff (43627) Immature Grans (Abs) 0.0 {x10E3/uL} (Normal) Range: [...] 3.77-5.28 WBC 10.1 {x10E3/uL} (Normal) Range: 3.4-10.8 37-Stw-786595:09 URINE KENROY CULTURE-IDENTIFICATN Comments: PATIENT NOT FASTINGPERFORMED BY: PasswordBank LastRoom [facility] HospitalKigo[facility] [id number] Information: [id number] ([id number]) Result 1 MUG (Normal) Comments: Mixed urogenital flora1,000 Colonies/mL Urine Culture,Comprehensive Final report (Normal) 63-Iqe-837199:21 Urinalysis, Office (28632) UA - LEUKOCYTE ESTERASE Trace (Normal) UA - NITRITE Negative (Normal) URINE UROBILINGN JUAN TIMED Normal mg/dL (Normal) UA - PROTEIN Negative mg/dL (Normal) UA - PH 6 (Abnormal) UA - BLOOD Negative (Normal) UA - SPECIFIC GRAVITY 1.025 (Normal) UA - KETONES Negative mg/dL (Normal) UA - BILIRUBIN Negative (Normal) UA - GLUCOSE Negative (Normal) 95-Lde-123320:39 HEPATITIS B SURFACE ANTIBODY Comments: PATIENT NOT FASTINGPERFORMED BY: PasswordBankVirtua BerlinWwcmdv1189 [facility]The [facility] [id number] (97007) Hep B Surface Ab, Qual Non Reactive (Normal) Comments: Non Reactive: Inconsistent with immunity, less than 10 mIU/mL Reactive: Consistent with immunity, greater than 9.9 mIU/mL 60-Hjr-752512:39 HEPATITIS PANEL (24186) Comments: PATIENT NOT FASTINGPERFORMED BY: [place] 4126070 [facility] [id number] Information: [id number] Hep C Virus Ab 0.2 {s/co_ratio} (Normal) Range: 0.0-0.9 Comments: Negative: < 0.8 Indeterminate 0.8 - 0.9 Positive: > 0.9 . In order to reduce the incidence of a false positive result, the CDC recommends that all s/co ratios between 1.0 and 10.9 be confirmed by a more specific supplemental or PCR testing. [facility] offers HCV Ab w/Reflex to Verification test #996992. Hep B Core Ab, IgM Negative (Normal) HBsAg Screen Negative (Normal) Hep A Ab, IgM Negative (Normal) :39 YEZHI-ORBCWWYTNWQ-FBQRV (12072) Comments: PATIENT NOT FASTINGPERFORMED BY: [facility]6370 [facility] [id number] AFP, Serum, Tumor Marker 2.8 ng/mL (Normal) Range: 0.0-8.3 Comments: Ozzie ECLIA methodology 6-Tzw-753253:59 CBC, Platelets & Auto Diff Comments: PATIENT NOT FASTINGPERFORMED BY: [facility]6370 [facility] [id number] Information: [id number] (13256) Immature Grans (Abs) 0.0 {x10E3/uL} (Normal) Range: [...] 3.77-5.28 WBC 10.1 {x10E3/uL} (Normal) Range: 3.4-10.8 3-Ubu-400481:59 Metabolic Panel, Comprehensive Comments: PATIENT NOT FASTINGPERFORMED BY: LabCoVirtua BerlinGbciei0629 [facility] [id number] (00260) ALT (SGPT) 27 [iU]/L (Normal) Range: 0-32 [...] Glucose, Serum 125 mg/dL (Abnormal) Range: 65-99 0-Kmt-741623:08 Urinalysis, Office (38796) UA - LEUKOCYTE ESTERASE Moderate (Normal) UA - NITRITE Positive (Normal) URINE UROBILINGN JUAN TIMED Normal mg/dL (Normal) UA - PROTEIN Negative mg/dL (Normal) UA - PH 6 (Abnormal) UA - BLOOD non-hemolyzed trace (Normal) UA - SPECIFIC GRAVITY 1.020 (Normal) UA - KETONES Negative mg/dL (Normal) UA - BILIRUBIN Negative (Normal) UA - GLUCOSE Negative (Normal) 09-Onq-179661:41 Urinalysis, Office (72339) UA - BILIRUBIN Negative (Normal) UA - BLOOD Negative (Normal) UA - GLUCOSE Negative (Normal) UA - KETONES Negative mg/dL (Normal) UA - LEUKOCYTE ESTERASE Negative (Normal) UA - NITRITE Negative (Normal) UA - PH 7.0 (Normal) UA - PROTEIN Negative mg/dL (Normal) UA - SPECIFIC GRAVITY 1.020 (Normal) URINE UROBILINGN JUAN TIMED Normal mg/dL (Normal) 54-Foc-07648:34 KENROY CULTURE-OTHER (72300) Comments: PATIENT NOT FASTINGPERFORMED BY: ShopSavvyAtrium Health SouthPark [id number] Information: SRC: THROAT Result 1 RRF (Normal) Comments: Routine respiratory edith Upper Respiratory Culture Final report (Normal) 28-Iej-965956:20 MUTBH-SEYUAFZKSZE-PLRUM (15084) Comments: PATIENT NOT FASTINGPERFORMED BY: ShopSavvyAt[facility] Health SouthPark [id number] AFP, Serum, Tumor Marker 2.6 ng/mL (Normal) Range: 0.0-8.3 Comments: Ozzie ECLIA methodology 90-Jjf-232134:20 PTT (Activated Partial Comments: PATIENT NOT FASTINGPERFORMED BY: [place] 4126070 [facility] [id number] Thromboplastin Time) (36499) aPTT 31 {sec} (Normal) Range: 24-33 Comments: This test has not been validated for monitoring unfractionated heparintherapy. aPTT-based therapeutic ranges for unfractionated heparintherapy have not been established. For general guidelines onHeparin monitoring, refer to the [facility] Directory of Services. 19-Der-250362:20 PT (Prothrobim Time) (67195) Comments: PATIENT NOT FASTINGPERFORMED BY: [facility]6370 [facility] [id number] INR 1.0 (Normal) Range: 0.8-1.2 Comments: Reference interval is for non-anticoagulated patients. . Suggested INR therapeutic range for Vitamin K anta gonist therapy: Standard Dose (moderate intensity therapeutic range): 2.0 - 3.0 Higher intensity therapeutic range 2.5 - 3.5 Prothrombin Time 10.3 {sec} (Normal) Range: 9.1-12.0 :20 CBC WITH MANUAL DIFF Comments: PATIENT NOT FASTINGPERFORMED BY: [facility]6370 [facility] [id number] Information: [id number] (85436) Immature Grans (Abs) 0.0 {x10E3/uL} (Normal) Range: [...] 3.77-5.28 WBC 12.1 {x10E3/uL} (Abnormal) Range: 4.0-10.5 35-Adm-752037:49 GALLBLADDER Radiology Report See Note (Normal) Comments: [...] size of the right kidney. The right kvdnxscwaiapzm03.8 cm. Normal renal cortex. The right cortex measures 1.1 cm. Thereisno demonstrated renal mass or cyst. There is no right hydronephrosis. IMPRESSION:Solitary gallstone.Fatty infiltration of the liver. Signed:Jono Dumont M.D.October 11, 2012 at 2:01:18 PM [phone] Signed GP/GP If you are the referring physician and would like to consult with theradiologist who provided this interpretation, please contact Simone Espino at [phone]. If this radiologist is unavailable, youwi ll [...] documents. Dictated on 10/11/12 1059 by Julia DÍAZ,Shylaranscribed on 10/11/12 1405 by ITS IMPORTSign by Jono Dumont MD on 10/11/12 1406 Sign by: Jono Dumont MD 12-Bkr-286435:14 C-REACTIVE PROTEIN (12812) Comments: PATIENT NOT FASTINGPERFORMED BY: Veezeon [facility] Kfrgki0960 Contract[facility]IDAt[facility] Health SouthPark [id number] C-Reactive Protein, Quant 11.5 mg/L (Abnormal) Range: 0.0-4.9 12-Ywe-854003:14 SED RATE ERYTHROCYTE (65291) Comments: PATIENT NOT FASTINGPERFORMED BY: Veezeon [facility] Ckwmuw7917 [place]aca [facility] [id number] Sedimentation Rate-Westergren 7 mm/h (Normal) Range: 0-32 66-Rsb-981804:14 CBC WITH MANUAL DIFF Comments: PATIENT NOT FASTINGPERFORMED BY: CHUY PlanG LastRoom [facility] [id number] Information: [id number] (15640) Immature Grans (Abs) 0.0 {x10E3/uL} (Normal) Range: [...] 3.77-5.28 WBC 13.1 {x10E3/uL} (Abnormal) Range: 4.0-10.5 11-Cig-517897:14 METABOLIC PANEL, COMPREHENSIVE Comments: PATIENT NOT FASTINGPERFORMED BY: CHUY [employer] [facility] [id number] (57695) ALT (SGPT) 25 [iU]/L (Normal) Range: 0-32 [...] mg/dL (Abnormal) Range: 65-99 21-Sep-20129:52 Rapid Flu (29397 x 2) Influenza A Ag pos a (Normal) 9-Ffr-982494:01 Influenza A&B Viral Comments: PATIENT NOT FASTINGPERFORMED BY: PlanGVirtua BerlinInzgss1394 [facility] [id number] Information: SRC:NOS [id number] Culture (04110) Viral Culture,Rapid,Influenza PFLUA (Abnormal) Comments: PositiveInfluenza A detected.. 1-Lry-267053:40 LIPID PANEL (47024) Comments: PATIENT WAS FASTINGPERFORMED BY: [employer]6370 [facility] [id number] LDL/HDL Ratio 3.0 {ratio_units} (Normal) Range: 0.0-3.2 LDL Cholesterol Calc 103 mg/dL (Abnormal) Range: 0-99 VLDL Cholesterol [place] 33 mg/dL (Normal) Range: 5-40 Cholesterol, Total 170 mg/dL (Normal) Range: 100-199 HDL Cholesterol 34 mg/dL (Abnormal) Comments: According to ATP-III Guidelines, HDL-C >59 mg/dL is considered anegative risk factor for CHD. Triglycerides 163 mg/dL (Abnormal) Range: 0-149 0-Vgo-424218:40 METABOLIC PANEL, Comments: PATIENT WAS FASTINGPERFORMED BY: [employer]6370 [facility] [id number] Information: [id number] COMPREHENSIVE (48473) ALT (SGPT) 29 [iU]/L (Normal) Range: 0-32 [...] mg/dL (Normal) Range: 65-99 :35 KENROY CULTURE-OTHER (72702) Comments: PATIENT NOT FASTINGPERFORMED BY: LabCoVirtua BerlinJbxtti0184 [facility] [id number] Information: SRC:THRT [id number] Result 1 RRF (Normal) Comments: Routine respiratory edith Upper Respiratory Culture Final report (Normal) 85-Pkw-46836:21 Rapid Strep Test, Office (87805) Rapid Strep Test, Office Negative (Normal) 7-Mac-488963:10 CBC With Differential/Platelet Comments: PATIENT WAS FASTINGPERFORMED BY: [facility] Ekojnz4287 [facility] [id number] Immature Grans (Abs) 0.0 {x10E3/uL} (Normal) Range: [...] (14) Comments: PATIENT WAS FASTINGPERFORMED BY: [employer]Co Aiyotq9748 [facility] [id number] ALT (SGPT) 22 [iU]/L (Normal) Range: 0-40 [...] % (Abnormal) Comments: PATIENT WAS FASTINGPERFORMED BY: [facility]6370 [facility] [id number] :10 Range: 4.8-5.6 Comments: . Increased risk for diabetes: 5.7 - 6.4 Diabetes: >6.4 Glycemic control for adults with diabetes: <7.0 3-Uwc-218875:10 Lipid Panel With LDL/HDL Comments: PATIENT WAS FASTINGPERFORMED BY: PlanGVirtua BerlinRzwhvp8118 [facility] [id number] Ratio LDL/HDL Ratio 4.3 {ratio_units} (Abnormal) Range: 0.0-3.2 LDL Cholesterol Calc 154 mg/dL (Abnormal) Range: 0-99 VLDL Cholesterol [place] 23 mg/dL (Normal) Range: 5-40 HDL Cholesterol 36 mg/dL (Abnormal) Comments: According to ATP-III Guidelines, HDL-C >59 mg/dL is considered anegative risk factor for CHD. Triglycerides 115 mg/dL (Normal) Range: 0-149 Cholesterol, Total 213 mg/dL (Abnormal) Range: 100-199 2-Jbs-081159:10 Microalb/Creat Ratio, Randm Ur Comments: PATIENT WAS FASTINGPERFORMED BY: PlanGVirtua BerlinKrlniv4[address] [place] [address] [id number] Microalb/Creat Ratio 6.3 {mg/g_creat} (Normal) Range: 0.0-30.0 Creatinine, Urine 30.4 mg/dL (Normal) Range: 15.0-278.0 Microalbumin, Urine 1.9 ug/mL (Normal) Range: 0.0-17.0 6-Nne-612363:10 Microscopic Examination Comments: PATIENT WAS FASTINGPERFORMED BY: PlanGVirtua BerlinZfvapc8972 [facility] [id number] Bacteria Few (Normal) Mucus Threads Present (Normal) Epithelial Cells (non 0-10 {/hpf} Range: 0 - 10 renal) (Normal) RBC None seen {/hpf} Range: 0 - 3 (Normal) WBC 0-5 {/hpf} (Normal) Range: 0 - 5 TSH 2.190 {uIU/mL} Comments: PATIENT WAS FASTINGPERFORMED BY: [address] RoadDublin [place] [id number] :10 (Normal) Range: 0.450-4.500 9-Hzt-723264:10 Urinalysis, Complete Comments: PATIENT WAS FASTINGPERFORMED BY: CHUY [facility]6370 [facility] [id number] Microscopic Examination See below: (Normal) Microscopic Examination MICRON (Normal) Comments: Microscopic follows if indicated. Nitrite, Urine Negative (Normal) Urobilinogen,Semi-Qn 0.2 mg/dL (Normal) Range: 0.0-1.9 Bilirubin Negative (Normal) Occult Blood Negative (Normal) Ketones Negative (Normal) Glucose Negative (Normal) Protein Negative (Normal) WBC Esterase Negative (Normal) Appearance Clear (Normal) Urine-Color Yellow (Normal) pH 7.5 (Normal) Range: 5.0-7.5 Specific [place] 1.008 (Normal) Range: 1.005-1.030 8-Nej-991800:53 CHEST, PA AND LATERAL Radiology Report See [...] shah M.D.May 28, 2012 at 3:41:15 PM [id number] Signed GP/GP If you are the referring physician and would like to consult with theradiologist who provided this interpretation, please contact Simone Espino at [phone]. If this radiologist is unavailable, youwill be directed to another radiologist to assist. If you are a patient with a question regarding this report, darin mitchelltactyour referring physician directly. Professional Interpretation Provided By: [employer], Phone , These documents contain legally protected and confidential healt hinformation intended only for the use of the individual or entity namedabove. If you are not the intended recipient, you are hereby notifiedthatany disclosure, copying, distribution, or other use of [facility] documents isstrictly prohibited. If you have [...] Marquez M.D.May 26, 2012 at 9:02:07 PM [phone] Signed AM/AM If you are the referring physician and would like to consult with theradiologist who provided this i nterpretation, please contact Joanne Marquez M.D. at . If this radiologist is unavailable, you will bedirected to another radiologist to assist. If you are a patient with a question regarding this report, pleasecontactyour referring physician directly. Professional Interpretation Provided By: [employer] [facility] [facility], Phone , These documents contain legally protected [...] Plan of Care Name Dates Details Instructions Diverticulitis : Eprescribed prescriptions (G8553) Indication: Diverticulitis [...] partial nephrectomy H/O partial nephrectomy : Reviewed Travel [place]ota Letter Indication: H/O partial nephrectomy Abdominal pain, [...] Indication: Abdominal pain, acute, generalized Planned Observations URINE KENROY CULTURE-IDENTIFICATN (03246)Indication: Dysuria On: 66-Ulc-972722:30 Request Serum Free Light Chains (86062)Indication: Abnormal blood chemistry On: 38-Xaw-550548:54 Request MICROALBUMIN: CREATININE RATIO (84836) AND (93110)Indication: Hypertension, benign On: :06 Request IMMUNOGLOBULIN E (IgE) (66046)Indication: Acute bronchitis On: :06 Request LIPID PANEL (48359)Indication: Mixed hyperlipidemia On: :40 Request BNNPG-PAPHPXYHCCQ-BLLFJ (63546)Indication: Fatty liver On: :40 Request HGB A1C (95615)Indication: Impaired Fasting Glucose On: :40 Request METABOLIC PANEL, COMPREHENSIVE (17584)Indication: Impaired Fasting Glucose On: :40 Request CBC (AUTO) (04636)Indication: Impaired Fasting Glucose On: :49 Request Vitamin D Hydroxy (57683)Indication: Vitamin D deficiency On: :48 Request METABOLIC PANEL, COMPREHENSIVE (18885)Indication: Mixed hyperlipidemia On: :48 Request LIPOPROTEIN, BLD, BY NMR (71451)Indication: Mixed hyperlipidemia On: :48 Request JBTZX-MJGTYJJMNOK-AZBVZ (81543)Indication: Acute foot pain, right On: 79-Jni-369935:38 Request Vitamin D Hydroxy (49497)Indication: Vitamin D deficiency On: :50 Request CPXWY-HWKNNXSRVEP-XFXIJ (97069)Indication: Fatty liver On: 23-Nov-20159:50 Request METABOLIC PANEL, COMPREHENSIVE (77488)Indication: Impaired Fasting Glucose On: :49 Request MICROALBUMIN: CREATININE RATIO (34516) AND (48549)Indication: Impaired Fasting Glucose On: :49 Request HGB A1C (24994)Indication: Impaired Fasting Glucose On: :49 Request LIPID PANEL (28746)Indication: Mixed hyperlipidemia On: 4-Apr-23282:49 Request LIPID PANEL (60562)Indication: Mixed hyperlipidemia On: 58-Bom-813481:00 Request MICROALBUMIN: CREATININE RATIO (73462) AND (20247)Indication: Impaired Fasting Glucose On: : Request Hemoglobin Glyclated (HGB A1C) (49820)Indication: Impaired Fasting Glucose On: : Request Vitamin D Hydroxy (57847)Indication: Vitamin D deficiency On: : Request Vitamin D Hydroxy (56342)Indication: Vitamin D deficiency On: : Request CBC with auto diff (40724)Indication: Hypertension, benign On: : Request METABOLIC PANEL, COMPREHENSIVE (91603)Indication: Impaired Fasting Glucose On: 52-Ujs-355344:10 Request MICROALBUMIN: CREATININE RATIO (49386) AND (23951)Indication: Impaired Fasting Glucose On: 05-Vqk-907670:10 Request Hemoglobin Glyclated (HGB A1C) (69044)Indication: Impaired Fasting Glucose On: 46-Nfv-966092:10 Request LIPID PANEL (42027)Indication: Mixed hyperlipidemia On: 24-Zfl-663840:10 Request THVEW-WURMARTZLLS-JXCTC (77080)Indication: Fatty liver On: 23-Tcf-890458:10 Request Vitamin D Hydroxy (62511)Indication: Vitamin D deficiency On: 3-Tyu-243640:15 Request Hemoglobin Glyclated (HGB A1C) (01167)Indication: Impaired Fasting Glucose On: 7-Vsd-250449:14 Request METABOLIC PANEL, COMPREHENSIVE (48260)Indication: Impaired Fasting Glucose On: 9-Uro-842755:14 Request LIPID PANEL (08505)Indication: Mixed hyperlipidemia On: 0-Dld-059099:14 Request Lipid Panel (14387)Indication: Elevated liver enzymes On: 51-Zaf-271506:47 Request HEPATIC FUNCTION PANEL (64316)Indication: Mixed hyperlipidemia On: 75-Akm-095060:08 Request CALCIFEDIOL (34763)Indication: Unspecified Diagnosis On: 31-Cuu-14309:53 Request Lipid Panel (90883)Indication: Unspecified Diagnosis On: 31-Dnl-95368:53 Request Lipid Panel (45608)Indication: SCREENING FOR HYPERLIPIDEMIA (Renamed from Encounter for screening for lipoid disorders) On: 52-Loy-435202:34 Request Comments: To be drawn Fasting Mar 2014 METABOLIC PANEL, COMPREHENSIVE (30390)Indication: Left knee pain On: :39 Request CCP ANTIBODY (63584)Indication: Left knee pain On: :39 Request SED RATE ERYTHROCYTE (59681)Indication: Left knee pain On: :39 Request C-REACTIVE PROTEIN (15637)Indication: Left knee pain On: :39 Request TSH (34692)Indication: Left knee pain On: :39 Request RHEUMATOID FACTOR-QUANT (46963)Indication: Left knee pain On: :39 Request Rapid Strep Test, Office (04126)Indication: ACUTE PHARYNGITIS (462.) On: 45-Szy-10874:20 Request C-REACT PROT HIGH SENS(hsCRP) (22695)Indication: Hypertension, benign On: 79-Hfr-539067:16 Request Sed Rate Erythrocyte (73058)Indication: Hypertension, benign On: 89-Qsi-958372:16 Request CBC with manual diff (75091)Indication: Hypertension, benign On: 52-Vtx-409568:16 Request TSH (79155)Indication: Chest pain On: :33 Request CBC WITH MANUAL DIFF (82438)Indication: Chest pain On: :33 Request MICROALBUMIN: CREATININE RATIO (67974) AND (49874)Indication: Hypertension, benign On: 76-Wof-140384:47 Request URINALYSIS, W/ MICRO (05472)Indication: Hypertension, benign On: 48-Dki-045269:47 Request Hemoglobin Glyclated (HGB A1C) (26852)Indication: Obesity, unspecified On: 45-Aop-476853:47 Request LIPID PANEL (66699)Indication: Mixed hyperlipidemia On: 68-Yyk-746792:46 Request METABOLIC PANEL, COMPREHENSIVE (65950)Indication: Hypertension, benign On: 74-Mxe-374264:46 Request Planned Encounters Medical; [facility] (Doctor) - On: 20-Aug-2018 13:30 [facility] Fast DO, Marcelle A Fast DO, Marcelle A Planned Procedures CT ABDOMEN AND PELVIS WITHOUT On: 10-Aug-2018 Intent CONTRAST (06139)By: Fast DO Marcelle Comments: stone protocol- STAT STAT STAT STAT STAT STAT A Fast DO, Marcelle A ELECTROCARDIOGRAM, COMPLETE (ECG) On: 26-Jul-2018 Intent (54022)By: Catalina Corona Comments: Normal Sinus Rhythm-HR 67 ORTHOSTATIC BLOOD PRESSURE On: 26-Jul-2018 Intent ASSESSMENT (42454)By: Cj, Comments: Layin/68 HR 60Sittin/70 AD97Udqlvudu: 84/66 HR 90 Catalina Flu Vaccine (Quadrivalent) On: 30-Apr-2018 Intent 40821Em: Fast DO, Marcelle A Fast DO, Comments: Lot #[id number]-1/30/19Site-L dltd, IMDose prefilled syringegiven by: Marta AVINA reviewed and ABN signed Marcelle A MAGNETIC RESONANCE IMAGING OF On: 07-Mar-2018 Intent RIGHT CALF WITHOUT THEN WITH CONTRAST (45202)By: Sara Henry Doppler Ultrasound OtherBy: Fast On: 06-Mar-2018 Intent DO, Marcelle A Fast DO, Marcelle A Comments: right leg- stat CT - Abdomen & Pelvis (IV Contrast On: 31-Jan-2018 Intent Needed)By: Marcelle Daley DO A Andrew Comments: with and without contrast DO, Marcelle A Ultrasound - ThyroidBy: Andrew DO, On: 16-Oct-2017 Intent Marcelle A Fast DO, Marcelle A ELECTROCARDIOGRAM, COMPLETE (ECG) On: 20-Jun-2017 Intent (53893)By: Andrew MATHIS, Marcelle A Fast DO, Marcelle A SCREENING DIGITAL TOMOSYNTHESIS OF On: 20-Jun-2017 Intent BREAST (91614)By: Fast DO, Marcelle A Fast DO, Marcelle A Flu Vaccine (Quadrivalent) On: 20-Jun-2017 Intent 61469Fb: Fast DO, Marcelle A Fast DO, Comments: lot: [id number]: 02/05/18ite/route: L blayne, IMamt: 0.5mlVIS and ABN signed when applicableCHAMP Ruiz Doppler Ultrasound OtherBy: Fast On: 28-Apr-2017 Intent [...] DO, Marcelle A Fast Comments: Lot:[id number]:01/05Dose:1mlRoute:IMSite:l armGiven By:BRIAN signed DO, Marcelle A Aerosol Treatment (77806)By: Andrew On: 23-Sep-2016 Intent DO, Marcelle A Fast DO, Marcelle A Comments: with albuterol Ultrasound - ThyroidBy: Fast DO, On: 29-Aug-2016 Intent Marcelle A Fast DO, Marcelle A Radiology - Shoulder - LeftBy: On: 16-May-2016 Intent Fast DO, Marcelle A Fast DO, Marcelle A Comments: with ac joint please DEXA SCAN AXIAL SKELETON On: 16-May-2016 Intent (68679)By: Fast DO, Marcelle A Fast DO, Marcelle A MAMMOGRAM, SCREENING, BOTH BREAST On: 16-May-2016 Intent (81879)By: Fast DO, Marcelle A Fast DO, Marcelle A ELECTROCARDIOGRAM, COMPLETE (ECG) On: 16-May-2016 Intent (25980)By: Fast DO, Marcelle A Fast Comments: ekg showed normal sinus rhythym, normal axis, no acute st/t wave changes slight prolong qt DO, Marcelle A Flu Vaccine (Quadrivalent) On: 16-May-2016 Intent 69132Fg: Fast DO, Marcelle A Fast DO, Comments: Lot #:[id number] date:02/17/17mount given:0.5mlRoute: IMSite given: left deltoidGiven by: TRAM Burch A ADMINISTRATION OF INFLUENZA VIRUS On: 16-May-2016 [...] MAMMOGRAM, SCREENING, BOTH BREAST On: 15-May-2015 Intent (14090)By: Fast DO, Marcelle A Fast DO, Marcelle A Flu Vaccine (Quadrivalent) On: 15-May-2015 Intent 92785Nc: Fast DO, Marcelle A Fast DO, Comments: Lot:[id number]:01/03Dose:0.5mLRoute:IMSite:L DltdGiven By:AZEB Kennedy signed Marcelle A ADMINISTRATION OF INFLUENZA VIRUS On: 15-May-2015 Intent VACCINE (G0008)By: Fast DO, Marcelle A Fast DO, Marcelle A EKG (37653)By: Fast DO Marcelle A On: 06-Feb-2015 Intent Fast DO, Marcelle A Comments: ekg showed normal sinus rhythym, normal axis, no acute st/t wave changes lvh no change Aerosol Treatment (23022)By: On: 15-Jan-2015 Intent Jing Harrison DO Comments: more a/e - still exp noise on left side only Radiology - Chest- PA and LatBy: On: 15-Jan-2015 Intent Jing Harrison DO Flu Vaccine (Quadrivalent) On: 20-Jun-2014 [address] 03[address]: Vivian Washington CNP ADMINISTRATION OF INFLUENZA VIRUS [...] Mosqueda Eprescribed prescriptions On: 16-Jul-2013 Intent (G8553)By: Felix BACHVivian IMMUNIZ ADMNIN, 1 VAC, SNGL/COMBO On: 03-Jul-2013 Intent (25287)By: Maty Taveras LPN Comments: Lot #[id number]-L dltd, IMDose prefilled syringegiven by:SIMONE Luque and ABN signed FLU VAC, SPLIT, >3 YEARS, On: 03-Jul-2013 Intent INTRAMUSC (35195)By: Maty Taveras LPN Toradol Injection, 30 mg On: 31-May-2013 Intent (J1885)By: Felix BACH Vivian Mosqueda Radiology - Left KneeBy: Felix On: 31-May-2013 Intent Vivian BACH Eprescribed prescriptions On: 06-Mar-2013 Intent (G8553)By: Sara Henry EKG (05470)By: Fast DO, Marcelle A On: 15-Oct-2012 Intent Fast DO, Marcelle A Comments: ekg showed normal sinus rhythym, normal axis, no acute st/t wave changes nsivcd no change Spirometry (63123)By: Fast DO, On: 15-Oct-2012 Intent Marcelle A Fast DO, Marcelle A Comments: good effort and curve normal Radiology - Chest- PA and LatBy: On: 15-Oct-2012 Intent Fast DO, Marcelle A Fast DO, Marcelle A Ultrasound - GallbladderBy: Fast On: 09-Oct-2012 Intent DO, Marcelle A Fast DO, Marcelle A Eprescribed prescriptions On: 09-Oct-2012 Intent (G8553)By: Melania Salcedo Aerosol Treatment (58384)By: Felix On: 21-Sep-2012 Intent Vivian BACH Eprescribed prescriptions On: 20-Jul-2012 Intent (G8553)By: Melania Salcedo SPECIMEN HNDLNG/TRNSPRT, OFFC > On: 11-Jul-2012 Intent LAB (52361)By: George Oscar LPN FLU VAC, SPLIT, >3 YEARS, On: 18-May-2012 Intent INTRAMUSC (30976)By: Denisse, Comments: Lot:[id number]:prefilledRoute:IMSite:L DltdGiven By:BRIAN Velázquez CT - Abdomen & PelvisBy: Fast DO, On: 18-May-2012 Intent Marcelle A Fast DO, Marcelle A Echo CompleteBy: Fast DO, Marcelle A On: 18-May-2012 Intent Fast DO, Marcelle A Spirometry (79880)By: Fast DO, On: 18-May-2012 Intent Marcelle A Fast DO, Marcelle A Comments: good effort and curve normal Eprescribed prescriptions On: 18-May-2012 Intent (G8553)By: Fast DO, Marcelle A Fast DO, Marcelle A EKG (61629)By: Fast DO, Macrelle A On: 18-May-2012 Intent Fast DO, Marcelle A Comments: sinus with deep r waves left axis no acute st t cahnges Radiology - Chest- PA and LatBy: On: 18-May-2012 Intent Fast DO, Marcelle A Fast DO, Marcelle A TD Injection , IM ([id number])By: On: 18-May-2012 Intent Melania Salcedo Comments: received in 2002 IMMUNIZ ADMNIN, 1 VAC, SNGL/COMBO On: 18-May-2012 Intent ([id number])By: Melania Salcedo Planned Medications INJECTION, KETOROLAC TROMETHAMINE, PER 15 MG Ordered: 31-May-2013 Pending Vivian Washington CNP Vitamin B-12 1000 MCG/ML Injection Solution Ordered: 09-Dec-2016 Pending Fast DO, Marcelle A Fast DO, Marcelle A Instructions Name Dates Details Diverticulitis : How to access health information [...] : Patient Instructions Indication: Impaired Fasting Glucose [facility] : How to access health information online Indication: [facility] Physical [facility] Physical : How to access health information online - Detail [facility] Physical : Patient Instructions Indication: [facility] Acute foot pain, [...] : Patient Instructions Indication: Hypertension, benign Encounters Annotation/Addendum On: 10-Aug-2018 14:49 Encounter Diagnosis: Flank pain End: 10-Aug-2018 14:53 [facility] Review On: 08-Aug-2018 11:55 Encounter Reason: Flank Pain - This condition occurred without any known injury. Symptoms include dysuria (last night slightly), flank pain (L side) and nausea, while symptoms do not include hematuria, back pain or vomit ing. The pain is located in the [...] it passed. Dizziness with movement. Was at [employer] working out and thought would stop and [...] BP med/ Will be seeing neurologist in [place] tomorrow), has decreased energy level (comes and [...] is sleeping poorly (just got back from [place], time zone). 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 Note for F laura up acute care visit: Pt is using [...] bandwagon- she was walkign regularly at the [facility] until last week -bp is ok- foot [...] include other (labs). Date: (05/02/16). Encounter Diagnosis: [facility] Physical, Need for prophylactic vaccination and [...] medication. Was keeping track of BP at [facility] but the c End: 20-Sep-2015 17:39 [...] she is getting appt with urology t ge tthis done se we talked they can [...] with oncologist- which didnt feel she got thourough answeer- has had abd pain for 4 [...] do from here. Has seen Oncologist in [place], Dr. Jan Healy which he has referred her to [facility] which she is waiting to get in. margins were not clear and was renal cell carcino alysia hollingsworth wanted to do watchful waiting- but went for second opinion in [place]-- got referred to Dr Iglesia Gibbons- she [...] for new patient [facility] physical: [facility] [...] Abdominal Pain,General (789.07) [facility] Payers [facility] TEMITOPE VALDOVINOS; a guarantor
--- OUTSIDE RECORDS SUMMARY | 2018-11-11 07:46 | XMS RPT_ITS | Continuity of Care Document ---
:1965 Author Organization [facility] Address [address] [facility] [address] [place] [address] Phone Care Team Providers Name Role Phone Marcelle Daley DO Unavailable Dr. Blayne Welsh Unavailable Devorah ALFARO MD , Richar Cruz Unavailable Dr. Alannah Marina Unavailable Brittany Hicks Unavailable Fuentes Del Toro MD Unavailable Dr. Harjinder Cifuentes Unavailable Dr. 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 per [place] but path reviewed by [facility] said it [...] days Quantity: 90 {Capsule} Refills: 2 Ordered:20-Jul-2018 Marcelle Daley DO AFast DO, Marcelle A Start : 20-Jul-2018 Active Losartan Potassium 25 MG Oral Tablet 1 (one) Tablet qd for 90 days Quantity: 90 {Tablet} Refills: 3 Ordered:27-Jul-2018 Andrew MATHIS, Marcelle AFast DO, Marcelle A Start : 27-Jul-2018 Active Losartan Potassium 25 MG Oral Tablet 1 (one) Tablet qd for 0 days Quantity: 30 {Tablet} Refills: 0 Ordered:27-Jul-2018 Marcelle Daley DO AFast DO, Marcelle A Start : 27-Jul-2018 Active Nasacort Allergy 24HR 55 MCG/ACT Nasal Aerosol 1 spray each nostril daily (55 MCG/ACT) Active Nystatin 036331 UNIT/GM External Powder 1 (one) Powder qd for 0 days Quantity: 1 {Bottle} Refills: 1 Ordered:30-Apr-2018 Marcelle Daley DOast DO, Marcelle A Start : 30-Apr-2018 Active ProAir HFA 108 (90 Base) MCG/ACT Inhalation Aerosol Solution 2 (two) Aerosol Soln puffs q 6 hours prn for 0 days Quantity: 1 {Inhaler} Refills: 1 Ordered:21-Jul-2017 Marcelle Daley DOast DO, Marcelle A Start : 21-Jul-2017 Active Rosuvastatin Calcium 10 MG Oral Tablet 1/2 Tablet qeve for 0 days Quantity: 90 {Tablet} Refills: 3 Ordered:07-May-2018 Andrew MATHIS, Marcelle SAULast DO, Marcelle A Start : 07-May-2018 Active Rosuvastatin Calcium 10 MG Oral Tablet 1/2 Tablet qeve for 0 days Quantity: 30 {Tablet} Refills: 3 Ordered:07-May-2018 , Marcelle AFast DO, Marcelle A Start : 07-May-2018 Active Vitamin D3 2000 UNIT Oral Tablet 2 (two) Tablet Tablet qd for 0 days Quantity: 60 {Tablet} Refills: 3 Ordered:23-Dec-2016 Melania Salcedo Start : 06-Dec-2016 Active Augmentin 875-125 MG Oral Tablet 1 Tablet bid for 14 days Quantity: 28 {Tablet} Refills: 0 Ordered:05-May-2017 Fast DO, Marcelle AFast DO, Marcelle A Start : 05-May-2017 End : 19-May-2017 Inactive BIAXIN XL PAC, 500MG (Oral Tablet Extended Release 24 Hour) 2 (two) Tablet ER 24HR daily for 10 days Quantity: 20 {Tablet_ER_24HR} Refills: 0 Ordered:16-Jul-2013 Melania Salcedo Start : 16-Jul-2013 End : 26-Jul-2013 Inactive CEFDINIR, 300MG (Oral Capsule) 1 (one) Capsule bid for 7 days Quantity: 14 {Capsule} Refills: 0 Ordered:18-May-2015 Felix BACH Sally Start : 18-May-2015 End : 25-May-2015 Inactive Cheratussin AC 100-10 MG/5ML Oral Syrup 10 Milliliter q 6-8 hrs prn for 0 days Quantity: 150 {Milliliter} Refills: 0 Ordered:16-Oct-2017 Sara Henry Start : 21-Jul-2017 End : 16-Oct-2017 Inactive Comments:one hundred fifty CIPRO, 500MG (Oral Tablet) 1 (one) Tablet bid for 7 days Quantity: 14 {Tablet} Refills: 0 Ordered:21-Apr-2015 Felix BACH Sally Start : 21-Apr-2015 End : 28-Apr-2015 Inactive CLARITIN, 10MG (Oral Tablet) 1 Tablet daily for 30 days Refills: 0 Ordered:20-Jul-2012 Marcelle Daley DO, DO, Debra A Start : 20-Jul-2012 End [...] days Quantity: 1 {Aerosol_Soln} Refills: 0 Ordered:22-Nov-2013 Nava Oscar LPNe Start : 16-Jul-2013 End : 22-Nov-2013 Inactive [...] Quantity: 90 {Tablet} Refills: 3 Ordered:16-Oct-2017 Fast DOTla Keysha MATHIS Marcelle A Start : 16-Oct-2017 End : 16-Oct-2017 Discontinued AZELASTINE HCL, 0.05% (Ophthalmic Solution) 1 (one) Solution Solution bid for 0 days Quantity: 1 {Bottle} Refills: 0 Ordered:21-Apr-2015 Scott Benito LPNa Start : 06-Dec-2013 End : 21-Apr-2015 Discontinued Ergocalciferol 01135 UNIT Oral Capsule 1 (one) Capsule Capsule q week for 0 days Quantity: 12 {Capsule} Refills: 3 Ordered:08-Mar-2017 Melania Salcedo Start : 04-Nov-2014 End : 08-Mar-2017 Discontinued Ergocalciferol 91309 UNIT Oral Capsule 1 (one) Capsule Capsule [...] days Quantity: 90 {Tablet} Refills: 1 Ordered:21-Apr-2015 Scott Benito LPNa Start : 09-Jan-2014 End : 21-Apr-2015 Discontinued [...] Status: Resolved as of 06-Feb-2015 Vaccine for blgsmmgafr-kxhjuyf-dxtqatgqo with poliomyelitis (Z23, V06.3) Status: Inactive as [...] EMG Patient Result: Comments: See Note; NOTES: [facility] Pulmonary Services/Neurology [address] [place] [address] MR#: [id number] Acct: [id number] Name: AMY VALDOVINOS Rep #: [id number] : 0 1965 52 From: Adebayo Canchola MD Referring Dr: Blayne Welsh DPM Status: REG CLI Ordering Dr: Date: Location: [facility] Sex: F C NCS and/or EMG [...] Dictated: 03/28/18 1021 Date Transcribed: 03/28/18 1021 Tumbling Machine Operator: NF Signed 10-Mar-2018 Lower Ext No Joint W/WO Cont Result: Comments: See Note; NOTES: [facility] Imaging Services [address] [place] [address] Lower Ext No Joint W/WO Cont MR#: [id number] Acct: [id number] Name: AMY VALDOVINOS Rep #: [id number] : 1965 F 52 From: Ge Moffett MD PCP: Marcelle Daley DO Status: REG CLI Study: Lower Ext No Joint W/WO Cont Date of Exam: 03/10/18 Exam# [id number] Ordering Dr: Marcelle Daley DO STUD Y: [...] Service support , CC: Marcelle Daley DO Tumbling Machine Operator: Signed 06-Mar-2018 Venous Duplex Lower Extremity Result: Comments: See Note; NOTES: [facility] Cardiovascular Services [address] [place] [address] Venous Duplex US, Unilateral 03/06/18 1435 MR#: [id number] Acct: [id number] Name: AMY CHOI Rep #: [id number] : 1965 52 From: Jared Hines MD [...] Dictated: 03/06/18 1435 Date Transcribed: 03/06/18 1623 Tumbling Machine Operator: Signed 19-Feb-2018 Abdomen/Pelvis WITH Contrast Result: Comments: See Note; NOTES: [facility] Imaging Services [address] [place] [address] Abdomen/Pelvis WITH Contrast MR#: [id number] Acct: [id number] Name: AMY VALDOVINOS Rep #: [id number] : 1965 F 52 From: Jono Dumont MD PCP: Marcelle Daley DO Status: REG CLI Study: Abdomen/Pelvis WITH Contrast Date of Exam: 02/19/18 Exam# [id number] Ordering Dr: Marcelle Daley DO S TUDY: [...] Jono Dumont MD at 10:35 EDT Tel [phone], Service support , CC: Marcelle Daley DO Tumbling Machine Operator: Signed 17-Oct-2017 Thyroid Result: Comments: See Note; NOTES: [facility] Imaging Services [address] [place] [address] Thyroid MR#: [id number] Acct: [id number] Name: AMY VALDOVINOS Rep #: [id number] : [birth year] F 52 From: Shine Sawyer MD PCP: Marcelle Daley DO Status: REG CLI Study: Thyroid Date of Exam: 10/17/17 Exam# [id number] Ordering Dr: Marcelle Daley DO STUDY: THYROID [...] Service support , CC: Marcelle Daley DO Tumbling Machine Operator: Signed 01-Aug-2017 SCREENING MAMM (CAD), BILAT Result: Comments: See Note; NOTES: [facility] Imaging Services [address] [place] [address] SCREENING MAMM (CAD), BILAT MR#: [id number] Acct: [id number] Name: AMY VALDOVINOS Rep #: [id number] : 1965 F 52 From: Jono Dumont MD PCP: Marcelle Daley DO Status: REG CLI Study: SCREENING MAMM (CAD), BILAT Date of Exam: 08/01/17 Exam# [id number] Ordering Dr: Marcelle Daley DO LETICIA MOGRAPHY - BILATERAL SCREENING REASON FOR EXAM: [...] delay biopsy of a clinically suspicious abnormality. [id number] Electronically Signed: Alma Dumont MD at 15:11 EST Tel [phone], Service support , CC: Marcelle Daley DO Tumbling Machine Operator: Signed 01-May-2017 Venous Duplex Lower Extremity Result: Comments: See Note; NOTES: [facility] Cardiovascular Services [address] [place] [address] Venous Duplex US, Unilateral 04/28/17 1357 MR#: [id number] Acct: [id number] Name: AMY CHOI Rep #: [id number] : 1965 51 From: Jared Hines MD Attending Dr: Marcelle Daley DO Status: REG CLI Ordering Dr: Marcelle Daley DO Date: 04/28/17 Location: [facility] Sex: F C Admitted: [place] son For Study: SWELLING RIGHT LEFT GSV [...] Referring Physician: Marcelle Daley Performed By: Sonia SANDOVAL, Sita MURILLO and Student 0 05/01/17 0854 Date Jared Hines MD CC: Marcelle Daley DO Date Dictated: 04/28/17 1357 Date Transcribed: 05/01/17 0855 Tumbling Machine Operator: Signed 28-Apr-2017 Foot min 3 Views Result: Comments: See Note; NOTES: [facility] Imaging Services [address] [place] [address] Foot min 3 Views MR#: [id number] Acct: [id number] Name: AMY VALDOVINOS Rep #: [id number] D OB: 1965 F 51 From: Amarjit Britton DO PCP: Marcelle Daley DO Status: REG CLI Study: Foot min 3 Views Date of Exam: 04/28/17 Exam# [id number] Ordering Dr: Marcelle Daley DO STUDY: X-RAY [...] Amarjit Britton DO at 20:42 EDT Tel [phone], Service support , CC: Marcelle Daley DO Tumbling Machine Operator: Signed 28-Apr-2017 Knee 4 or More Views Result: Comments: See Note; NOTES: [facility] Imaging Services [address] [place] [address] Knee 4 or More Views MR#: [id number] Acct: [id number] Name: AMY VALDOVINOS Rep #: [id number] : 1965 F 51 From: Amarjit Britton DO PCP: Marcelle Daley DO Status: REG CLI Study: Knee 4 or More Views Date of Exam: 04/28/17 Exam# [id number] Ordering Dr: Marcelle Daley DO STUDY: X-RAY [...] Amarjit Britton DO at 20:31 EDT Tel [phone], Service support , CC: Marcelle Daley DO Tumbling Machine Operator: Signed 23-Mar-2017 Liver Result: Comments: See Note; NOTES: [facility] Imaging Services [address] [place] [address] Liver MR#: [id number] Acct: [id number] Name: AMY VALDOVINOS Rep #: [id number] : [birth year] F 51 From: Jono Dumont MD PCP: Marcelle Daley DO Status: REG CLI Study: Liver Date of Exam: 03/23/17 Exam# [id number] Ordering Dr: Marcelle Daley DO STUDY: ABDOMINAL [...] Jono Dumont MD at 8:50 EDT Tel [phone], Service support , CC: Marcelle Daley DO Tumbling Machine Operator: Signed 31-Aug-2016 Thyroid Result: Comments: See Note; NOTES: [facility] Imaging Services [address] [place] [address] Verdana 4d Thyroid MR#: [id number] Acct: [id number] Name: AMY VALDOVINOS Rep #: [id number] : 1965 F 51 From: Amarjit Britton DO PCP: Marcelle Daley DO Status: REG CLI Study: Thyroid Date of Exam: 08/31/16 Exam# [id number] Ordering Dr: Marcelle Daley DO STUDY: THYROID [...] Amarjit Britton DO at 23:35 EST Tel [phone], Service support [phone], CC: Marcelle Daley DO Tumbling Machine Operator: Signed 09-Jun-2016 Bilat Scrn Digital AND CAD Result: Comments: See Note; NOTES: [facility] Imaging Services [address] [place] [address] Verdana 4d Bilat Scrn Digital AND CAD MR#: [id number] Acct: [id number] Name: AMY VALDOVINOS NNE Rep #: [id number] : 1965 F 51 From: Jono Dumont MD PCP: Marcelle Daley DO Status: REG CLI Study: Bilat Scrn Digital AND CAD Date of Exam: 06/09/16 Exam# [id number] Ordering Dr: Tl Daley DO MAMMOGRAPHY - [...] delay biopsy of a clinically suspicious abnormality. [id number] Electronically Signed: Jono Dumont MD at 15:05 EDT Tel [phone], Servi ce support [phone], CC: Marcelle Daley DO Tumbling Machine Operator: Signed 09-Jun-2016 Dexa Bone Density Study (HP) Result: Comments: See Note; NOTES: [facility] Imaging Services [address] [place] [address] Verdana 4d Dexa Bone Density Study (HP) MR#: [id number] Acct: [id number] Name: AMY VALDOVINOS Rep #: [id number] : 1965 F 51 From: Jono Dumont MD PCP: Marcelle Daley DO Status: REG CLI Study: Dexa Bone Density Study (HP) Date of Exam: 06/09/16 Exam# [id number] Ordering Dr: Marcelle Daley DO STUDY: DUAL [...] Jono Dumont MD at 8:21 EDT Tel [phone], Service support [phone], CC: Marcelle Daley DO Tumbling Machine Operator: Signed 17-May-2016 Shoulder min 2 Views Result: Comments: See Note; NOTES: [facility] Imaging Services [address] [place] [address] Verdana 4d Shoulder min 2 Views MR#: [id number] Acct: [id number] Name: BONIFACIOAMY TEMITOPE Josephine p #: [id number] : 1965 F 50 From: Jono Dumont MD PCP: Marcelle Daley DO Status: REG CLI Study: Shoulder min 2 Views Date of Exam: 05/17/16 Exam# [id number] Ordering Dr: Marcelle Daley DO STUD Y: [...] Dumont MD 06/05/27 at 12:52 EDT Tel [phone], Service support [phone], CC: Marcelle Daley DO Tumbling Machine Operator: Signed 17-Mar-2016 Foot min 3 Views Result: Comments: See Note; NOTES: [facility] Imaging Services [address] [place] [address] Verdana 4d Foot min 3 Views MR#: [id number] Acct: [id number] Name: AMY VALDOVINOS Rep #: [id number] : 1965 F 50 From: Malcom Emmanuel MD PCP: Marcelle Daley DO Status: REG CLI Study: Foot min 3 Views Date of Exam: 03/17/16 Exam# [id number] Ordering Dr: Marcelle Daley DO STUDY: X-RAY [...] MD at 13:39 EDT , Service support , CC: Marcelle Daley DO Tumbling Machine Operator: Signed 10-Nov-2015 Chest without Contrast Result: Comments: See Note; NOTES: [facility] Imaging Services [address] [place] [address] Verdana 4d Chest without Contrast MR#: [id number] Acct: [id number] Name: AMY GUILLERMO Rep #: [id number] : 1965 F 50 From: Ismael Mejia DO PCP: Marcelle Daley DO Status: REG CLI Study: Chest without Contrast Date of Exam: 11/10/15 Exam# [id number] Ordering Dr: Mabel Daley ra, DO ADDENDUM by Ismael Mejia on 11/23/15 at 0952 ADDENDUM ADDENDUM: Review of the soft ti ssues of the supraclavicular regions demonstrate no evidence of lymphadenopathy or other soft tissue abnormality. Electronically Signed: Ismael Mejia DO at 9:52 EDT Tel [phone], Serv ice support [phone], 11/23/15 0952 Date cc: Marcelle Daley DO [...] Ismael Mejia DO at 21:20 EDT Tel [phone], [employer] support [phone], CC: Marcelle Daley DO Tumbling Machine Operator: Signed 10-Nov-2015 Chest without Contrast Result: Comments: See Note; NOTES: [facility] Imaging Services [address] [place] [address] Verdana 4d Chest without Contrast MR#: [id number] Acct: [id number] Name: AMY GUILLERMO Rep #: [id number] : 1965 F 50 From: Ismael Mejia DO PCP: Marcelle Daley DO Status: REG CLI Study: Chest without Contrast Date of Exam: 11/10/15 Exam# [id number] Ordering Dr: Mabel Daley ra, DO STUDY: [...] Ismael Mejia DO at 21:20 EDT Tel [phone], Service support [phone], CC: Marcelle Daley DO Tumbling Machine Operator: Signed 10-Nov-2015 Thyroid Result: Comments: See Note; NOTES: [facility] Imaging Services [address] [place] [address] Verdana 4d Thyroid MR#: [id number] Acct: [id number] Name: AMY VALDOVINOS Rep #: [id number] : 1965 F 50 From: Jono Dumont MD PCP: Marcelle Daley DO Status: REG CLI Study: Thyroid Date of Exam: 11/10/15 Exam# [id number] Ordering Dr: Marcelle Daley DO STUDY: THYROI [...] Jono swann MD at 10:10 EDT Tel [phone], Service support [phone], CC: Marcelle Daley DO Tumbling Machine Operator: Signed 08-Sep-2015 EKG (44945) Comments: ekg showed normal sinus rhythym, left axis, no acute st/t wave changes lv strain Result: [MEASUREMENTS ANALYSIS] Date of Test: 09/08/2015 12:10:48; Heart Rate: 55; NV Interval: 164; QRS: 114; QT Interval: 462; Corrected QT Interval (QTc): 454; P Wave [place]: 34; QRS Wave [place]: -29; T Wave Axi s: -16; Blood Pressure: 148/98 [ECG DIAGNOSTIC STATEMENTS] Date of Test: 09/08/2015 12:10:48; Summary: Sinus Bradycardia -Left axis. Voltage criteria for LVH (S(V1)+R(V6) exceeds 3.50 mV). -Nonspeci fic ST depression -Seen with left ventricular hypertrophy (strain) or digitalis effect. ABNORMAL 26-May-2015 Bilat Scrn Digital AND CAD Result: Comments: See Note; NOTES: [facility] Imaging Services [address] [place] [address] Breast Imaging Report MR#: [id number] Acct: [id number] Name: AMY VALDOVINOS Rep #: [id number] : 1965 F 50 From: Jono Dumont MD PCP: Marcelle Daley DO Status: REG CLI Study: Lesley Kaurn Digital AND CAD Date of Exam: 05/26/15 Exam# [id number] Ordering Dr: Marcelle Daley DO MAMMOGRAPHY - [...] Jono Dumont MD at 15:40 EDT Tel [phone], Service support [phone], CC: Marcelle Daley DO Tumbling Machine Operator: Signed 18-May-2015 Chest PA and Lateral Result: Comments: See Note; NOTES: [facility] Imaging Services [address] [place] [address] Radiology Report MR#: [id number] Acct: [id number] Name: AMY VALDOVINOS Rep #: [id number] : 1965 F 49 From: Jono Dumont MD PCP: Marcelle Daley DO Status: REG CLI Study: Chest PA and Lateral Date of Exam: 05/18/15 Exam# [id number] Ordering Dr: Vivian Washington STUDY: X-RA Y [...] Jono Dumont MD at 14:19 EDT Tel [phone], Service support [phone], RAD/Chest PA and Lateral IMPRESSION: No acute abnormality is seen. Electronically Signed: Jono Dumont MD at 14:19 EDT Tel [phone], Service support [phone], CC: Vivian Washington; Marcelle Daley DO Tumbling Machine Operator: Signed 15-Jan-2015 Chest PA and Lateral Result: Comments: See Note; NOTES: [facility] Imaging Services [address] [place] [address] Radiology Report MR#: [id number] Acct: [id number] Name: AMY VALDOVINOS Rep #: [id number] : 1965 F 49 From: Shine Sawyer MD PCP: Marcelle Daley DO Status: REG CLI Study: Chest PA and Lateral Date of Exam: 01/15/15 Exam# [id number] Ordering Dr: Jing Harrison DO STUDY : [...] MD at 23:41 EDT , Service support [phone], RAD/Chest PA and Lateral IMPRESSION: Normal x-ray examination of the chest. Electronically Signed: Shine Sawyer MD at 23:41 E DT , Service support [phone], CC: Marcelle Daley DO; Jing Harrison DO Tumbling Machine Operator: Signed 15-Jan-2015 Inhaler Demo ([id number]) Result: Comments: I instructed pt to use inhaler, then she redemonstrated the technique back to me. 15-Jan-2015 Spirometry (55571) Comments: obsrtuction present Result: 29-Oct-2014 Abdomen WITH and W/O Contrast Result: Comments: See Note; NOTES: [facility] Imaging Services [address] [place] [address] MRI Report MR#: [id number] Acct: [id number] Name: AMY VALDOVINOS Rep #: [id number] : 1965 F 49 From: Heavenly Rojas MD PCP: Marcelle Daley DO Status: REG CLI Study: Abdomen WITH and W/O Contrast Date of Exam: 10/29/14 Exam# [id number] Ordering Dr: Stanton Caal MD STUDY: M [...] at 1 1:15 EDT , Service support [phone], CC: Marcelle Daley DO; Stanton Caal MD Tumbling Machine Operator: Signed 23-Jun-2014 Esophagus Only Result: Comments: See Note; NOTES: [facility] Imaging Services [address] [facility] [place] [address] Radiology Report MR#: [id number] Acct: [id number] Name: AMY VALDOVINOS Rep #: [id number] : 1965 F 49 From: Jono Dumont MD PCP: Status: REG CLI Study: Esophagus Only Date of Exam: 06/23/14 Exam# [id number] Ordering Dr: Jing Harrison DO STUDY: X-RAY [...] Jono Dumont MD at 9:21 EST Tel [phone], Service support [phone], RAD/Esophagus Only IMPRESSION: Small sliding hiatal hernia with no evidence of gastroesophageal reflux. Electronically Signed: Jono Dumont MD at 9:21 EST Tel [phone], Service support [phone], CC: Jing Harrison DO Tumbling Machine Operator: Signed 23-Jun-2014 Thyroid Result: Comments: See Note; NOTES: [facility] Imaging Services [address] [place] [address] Ultrasound Report MR#: [id number] Acct: [id number] Name: AMY VALDOVINOS Rep #: [id number] : 1965 F 49 From: Jono Dumont MD PCP: Status: REG CLI Study: Thyroid Date of Exam: 06/23/14 Exam# [id number] Ordering Dr: Jing Harrison DO STUDY: THYROID [...] Jono Dumont MD at 15:38 EST Tel [phone], Service support [phone], C C: Jing Harrison DO Tumbling Machine Operator: Signed 30-Nov-2013 Abdomen/Pelvis WITH Contrast Result: Comments: See Note; NOTES: [facility] Imaging Services [address] [place] [address] CAT Scan Report MR#: [id number] Acct: [id number] Name: AMY VALDOVINOS Rep #: [id number] : 1965 F 48 From: Jesse Carrington MD PCP: Marcelle Daley DO Status: REG CLI Study: Abdomen/Pelvis WITH Contrast Date of Exam: 11/30/13 Exam# [id number] Ordering Dr: Vivian Washington STUDY: CT ABDOMEN [...] MD at 8:45 EDT , Service support [phone], CC: Vivian Washington; Marcelle Daley DO; Dr. Iglesia Lee M.D.; Stanton Caal MD Tumbling Machine Operator: Signed 26-Nov-2013 Kidney and Bladder Result: Comments: See Note; NOTES: [facility] Imaging Services [address] [place] [address] Ultrasound Report MR#: [id number] Acct: [id number] Name: AMY VALDOVINOS Rep #: [id number] : 1965 F 48 From: Jono Dumont MD PCP: Marcelle Daley DO Status: REG CLI Study: Kidney and Bladder Date of Exam: 11/26/13 Exam# [id number] Ordering Dr: Vivian Washington STUDY: RENAL ULTRASOUND [...] at 12:56 EDT Tel , Service support [phone], CC: Vivian Daley DO Tumbling Machine Operator: Signed 31-May-2013 Knee 4 or More Views Result: Comments: See Note; NOTES: [facility] Imaging Services [address] [place] [address] Radiology Report MR#: [id number] Acct: [id number] Name: AMY VALDOVINOS Rep #: [id number] : 1965 F 48 From: Jono Dumont MD PCP: Status: REG CLI Study: Knee 4 or More Views Date of Exam: 05/31/13 Exam# [id number] Ordering Dr: Vivian Washington STUDY: X-RAY - [...] May 31, 2013 at 1:16:23 PM EDT [phone] Electronically Signed GP/GP If you are the referring physician and would like to consult with the radiologist w ho provided this interpretation, please contact Jono Dumont M.D. at [phone]. If this radiologist is unavailable, you will be directed to another radiologist to assist. If you are a veronica ent with a question regarding this report, please contact your referring physician directly. Professional Interpretation Provided By: [employer], Phone , These docum ents contain legally [...] destruction of these documents. 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 Fraser - [phone]; A courtesy copy of this report has been sent [phone].PATIENT NOT FASTINGPERFORMED BY: [facility] [id number] [facility] [id number] ([id number]) RA Latex Turbid. <10.0 {IU/mL} (Normal) Range: 0.0-13.9 :39 IMMUNOFIXATION, SERUM (89755) Comments: send copy to Dr. Evelio Kaur [phone]; A courtesy copy of this report has been sent [phone].PATIENT NOT FASTINGPERFORMED BY: [employer] [id number] 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 :39 HIV-1 ANTIBODY (53101) Comments: send copy to Dr. Evelio Kaur [phone]; A courtesy copy of this report has been sent [phone].PATIENT NOT FASTINGPERFORMED BY: [employer] Bwfmmb3604 [facility] [id number] HIV Screen 4th Generation wRfx Non Reactive (Normal) 76-Mwr-104828:39 HEPATITIS C ANTIBODY (34220) Comments: send copy to Dr. Evelio Kaur [phone]; A courtesy copy of this report has been sent [phone].PATIENT NOT FASTINGPERFORMED BY: [employer] Pjchep3833 [facility] [id number] Hep C Virus Ab <0.1 {s/co_ratio} (Normal) Range: 0.0-0.9 Comments: Negative: < 0.8 Indeterminate: 0.8 - 0.9 Positive: > 0.9 . The CDC recommends that a positive HCV antibody result be followed up with a HCV Nucleic Acid Amplification test (113361). :39 FOLIC ACID SERUM (14607) Comments: send copy to Dr. Evelio Kaur [phone]; A courtesy copy of this report has been sent [phone].PATIENT NOT FASTINGPERFORMED BY: [facility]6370 [facility] [id number] Folate (Folic Acid), Serum 14.3 ng/mL (Normal) Comments: A serum folate concentration of less than 3.1 ng/mL isconsidered to represent clinical deficiency. 36-Cpw-237873:39 ANTIEXTARACT NUCLEAR AG 6338 Comments: send copy to Dr. Evelio Kuar [phone]; A courtesy copy of this report has been sent [phone].PATIENT NOT FASTINGPERFORMED BY: [facility]enseCentral [facility] [id number] (83465) Up Antibodies <0.2 {AI} (Normal) Range: 0.0-0.9 STAIR BUILDER Antibodies <0.2 {AI} (Normal) Range: 0.0-0.9 58-Lip-231370:39 LOLITA (ANTINUCLEAR ANTIBODY) Comments: send copy to Dr. Evelio Kaur [phone]; A courtesy copy of this report has been sent [phone].PATIENT NOT FASTINGPERFORMED BY: [employer] [facility] [id number] (76416) LOLITA Direct Negative (Normal) 25-Jul-20189:13 Vitamin B-12 (cyanocobalamin) Comments: PATIENT WAS FASTINGPERFORMED BY: [employer]70 [address] [facility] HospitalleemailCentral Carolina Hospital [id number] (00585) Vitamin B12 341 pg/mL (Normal) Range: 232-1245 :13 CBC with auto diff (69771) Comments: PATIENT WAS FASTINGPERFORMED BY: [employer]70 [facility] [id number]; appt 07/27 Immature Grans (Abs) 0.0 {x10E3/uL} [...] PATIENT WAS FASTINGPERFORMED BY: [facility]CoIn[facility] ElmerAyfbuu5158 [facility] [id number] (69421) ALT (SGPT) 19 [iU]/L (Normal) Range: 0-32 [...] Glucose 80 mg/dL (Normal) Range: 65-99 25-Jul-20189:13 YJUUH-PBNDLUSACEB-TDCYD (61041) Comments: PATIENT WAS FASTINGPERFORMED BY: [facility] [id number] AFP, Serum, Tumor Marker 3.6 ng/mL (Normal) Range: 0.0-8.3 Comments: Ozzie ECLIA methodology 67-Mna-333178:05 URINE KENROY CULTURE-IDENTIFICATN Comments: PATIENT NOT FASTINGPERFORMED BY: z[facility]enseCentral [facility] [id number] Information: SRC: (60672) Result 1 MUG (Normal) Comments: Mixed urogenital flora1,000 Colonies/mL Urine Culture,Comprehensive Final report (Normal) 28-Adz-110142:56 Urinalysis, Office (87754) UA - LEUKOCYTE ESTERASE Trace (Normal) UA - NITRITE Negative (Normal) URINE UROBILINGN JUAN TIMED Normal mg/dL (Normal) UA - PROTEIN Trace mg/dL (Normal) UA - PH 5 (Abnormal) UA - BLOOD Negative (Normal) UA - SPECIFIC GRAVITY 1.030 (Abnormal) UA - KETONES Negative mg/dL (Normal) UA - BILIRUBIN Small (Normal) UA - GLUCOSE Negative (Normal) 61-Hot-273215:28 CBC, PLATELETS & AUT DIFF Comments: PATIENT WAS FASTINGPERFORMED BY: [facility]Central [facility] [id number] (28494) Immature Grans (Abs) 0.0 {x10E3/uL} (Normal) Range: [...] 3.77-5.28 WBC 6.8 {x10E3/uL} (Normal) Range: 3.4-10.8 68-Cqd-708092:28 VITAMIN B-12 (CYANOCOBALAMIN) Comments: PATIENT WAS FASTINGPERFORMED BY: [facility] Xnmwvl1555 [address] [id number] (96459) Vitamin B12 413 pg/mL (Normal) Range: 232-1245 10-Wkz-340573:28 Vitamin D Hydroxy (55038) Comments: PATIENT WAS FASTINGPERFORMED BY: [employer] [facility] Tmznwp4511 [address] [id number] Vitamin D, 25-Hydroxy 52.6 ng/mL (Normal) Range: 30.0-100.0 Comments: Vitamin D deficiency has been defined by the [place] of[place]icine and an Endocrine Society practice guideline as alevel of serum 25-OH vitamin D less than 20 ng/mL (1,2).The Endocrine Society went on to further define vitamin Dinsufficiency as a level between 21 and 29 ng/mL (2).1. IOM ([place] of Medicine). 2010. Dietary reference intakes for calcium and D. [place]: The National Academies Press.2. Myla MF, Javier STUART, Panfilo MANN, et al. Evaluation, treatment, and prevention of vitamin D deficiency: an Endocrine Society clinical practice guideline. JCEM. 2010; 96(7):1911-30. 92-Epq-607566:28 LIPID PANEL (64069) Comments: PATIENT WAS FASTINGPERFORMED BY: [employer]70 [facility]&SparkCentral [facility] [id number] LDL/HDL Ratio 1.3 {ratio} (Normal) Range: 0.0-3.2 Comments: LDL/HDL Ratio Men Women 1/2 Avg.Risk 1.0 1.5 Av g.Risk 3.6 3.2 2X Avg.Risk 6.2 5.0 3X Avg.Risk 8.0 6.1 LDL Cholesterol Calc 51 mg/dL (Normal) Range: 0-99 VLDL Cholesterol Kirby 11 mg/dL (Normal) Range: 5-40 HDL Cholesterol 38 mg/dL (Abnormal) Triglycerides 55 mg/dL (Normal) Range: 0-149 Cholesterol, Total 100 mg/dL (Normal) Range: 100-199 75-Bxh-400762:38 HgA1C , Office (77045) HgA1C , Office 6.1 % (Normal) Range: 4.6 - 7.1 91-Ntn-790749:28 HGB A1C (81636) Comments: PATIENT WAS FASTINGPERFORMED BY: FastHealthlin6370 [facility] [id number] Hemoglobin A1c 5.6 % (Normal) Range: 4.8-5.6 Comments: . Prediabetes: 5.7 - 6.4 Diabetes: >6.4 Glycemic control for adults with diabetes: <7.0 51-Jli-001987:28 FNPBL-ZQURYHDPVZO-LQVPK (13361) Comments: PATIENT WAS FASTINGPERFORMED BY: [employer]6370 [facility]&SparkCentral Carolina Hospital [id number] AFP, Serum, Tumor Marker 3.6 ng/mL (Normal) Range: 0.0-8.3 Comments: Ozzie ECLIA methodology 95-Npk-299165:28 MICROALBUMIN: CREATININE RATIO Comments: PATIENT WAS FASTINGPERFORMED BY: [facility] in [facility] CloudInspira Medical Center ElmerPeeleq4024 [facility] [id number] (17518) AND (90548) Alb/Creat Ratio 4.1 {mg/g_creat} (Normal) Range: 0.0-30.0 Albumin, Urine 5.8 ug/mL (Normal) Creatinine, Urine 139.9 mg/dL (Normal) 95-Pvg-306239:28 METABOLIC PANEL, COMPREHENSIVE Comments: PATIENT WAS FASTINGPERFORMED BY: [facility] in the CloudInspira Medical Center ElmerTkyyvj5600 [facility] [id number]; review at 05/07 appt (38987) ALT (SGPT) 19 [iU]/L (Normal) Range: 0-32 [...] mg/dL (Normal) Range: 65-99 :21 LIPID PANEL (27157) Comments: PATIENT WAS FASTINGPERFORMED BY: [facility] in the CloudUNM Sandoval Regional Medical CenterMtejbw7705 [facility] [id number] LDL/HDL Ratio 1.6 {ratio} (Normal) Range: 0.0-3.2 Comments: LDL/HDL Ratio Men Women 1/2 Avg.Risk 1.0 1.5 Av g.Risk 3.6 3.2 2X Avg.Risk 6.2 5.0 3X Avg.Risk 8.0 6.1 LDL Cholesterol Calc 75 mg/dL (Normal) Range: 0-99 VLDL Cholesterol Kirby 19 mg/dL (Normal) Range: 5-40 HDL Cholesterol 46 mg/dL (Normal) Triglycerides 93 mg/dL (Normal) Range: 0-149 Cholesterol, Total 140 mg/dL (Normal) Range: 100-199 :21 CBC W/AUTO DIFF WBC (88904) Comments: PATIENT WAS FASTINGPERFORMED BY: [employer]6370 [facility] [id number]; review on 01/31 Immature Grans (Abs) 0.0 [...] PATIENT WAS FASTINGPERFORMED BY: LabCoInspira [facility] ElmerMmduln8068 [facility] [id number] (96712) ALT (SGPT) 18 [iU]/L (Normal) Range: 0-32 [...] 0 days - 30 days 16 - 16 - 29 31 days - 1 [...] 6-24 Glucose 98 mg/dL (Normal) Range: 65-99 88-Dgb-753147:22 TSH (65208) Comments: PATIENT NOT FASTINGPERFORMED BY: CHUY [facility] Ungtka2026 [address]aca RoadDublin [place] [id number] TSH 1.150 {uIU/mL} (Normal) Range: 0.450-4.500 51-Pdf-212921:22 SED RATE ERYTHROCYTE (09408) Comments: PATIENT NOT FASTINGPERFORMED BY: CHUY [facility] Uvhzpt2665 V[address] Roadblin [place] [id number] Sedimentation Rate-Westergren 8 mm/h (Normal) Range: 0-40 32-Tue-350097:22 C-REACTIVE PROTEIN (81873) Comments: PATIENT NOT FASTINGPERFORMED BY: [facility] Pilmpv0582 Vaca RoadDublin [place] [id number] C-Reactive Protein, Quant 2.5 mg/L (Normal) Range: 0.0-4.9 20-Tox-064419:22 LOLITA (ANTINUCLEAR ANTIBODY) Comments: PATIENT NOT FASTINGPERFORMED BY: CHUY [facility] Icizyj9289 [address] Roadblin [place] [id number] (26130) LOLITA Direct Negative (Normal) 92-Kwl-542434:22 VITAMIN B-12 (CYANOCOBALAMIN) Comments: PATIENT NOT FASTINGPERFORMED BY: [facility] Tvoalg9983 [address] Roadblin [place] [id number] (59355) Vitamin B12 340 pg/mL (Normal) Range: 232-1245 03-Pnx-723722:22 IRON (35704) Comments: PATIENT NOT FASTINGPERFORMED BY: CHUY [facility] Akcoyj0384 [address]aca RoadDublin [place] [id number] Iron, Serum 57 ug/dL (Normal) Range: 27-159 86-Ymv-249814:22 FERRITIN (20458) Comments: PATIENT NOT FASTINGPERFORMED BY: CHUY [facility] Watcyr1110 [address]aca RoadDublin [place] [id number] Ferritin, Serum 220 ng/mL (Abnormal) Range: 15-150 12-Cxr-859094:27 Albumin/Creatinine Comments: PATIENT WAS FASTINGPERFORMED BY: [employer] Pvealg3755 [facility] [id number] BY: [employer] [id number] Ratio,Urine Alb/Creat Ratio 5.5 {mg/g_creat} (Normal) Range: 0.0-30.0 Albumin, Urine 9.6 ug/mL (Normal) Creatinine, Urine 176.1 mg/dL (Normal) 31-Nph-522387:27 Vitamin D Hydroxy Comments: PATIENT WAS FASTINGPERFORMED BY: [employer] Yfrsay2029 [facility] [id number] BY: [employer] [id number] (01080) Vitamin D, 25-Hydroxy 44.1 ng/mL (Normal) Range: 30.0-100.0 Comments: Vitamin D deficiency has been defined by the [place] of[place]icine and an Endocrine Society practice guideline as alevel of serum 25-OH vitamin D less than 20 ng/mL (1,2).The Endocrine Society went on to further define vitamin Dinsufficiency as a level between 21 and 29 ng/mL (2).1. IOM ([place] of Medicine). 2010. Dietary reference intakes for calcium and D. [place]: The National Academies Press.2. Myla MF, Javier STUART, Panfilo MANN, et al. Evaluation, treatment, and prevention of vitamin D deficiency: an Endocrine Society clinical practice guideline. JCEM. 2010; 96(7):1911-30. 58-Agg-988195:27 HGB A1C (03841) Comments: PATIENT WAS FASTINGPERFORMED BY: [facility] in the CloudInspira Medical Center ElmerSchgfd4266 [facility] [id number] BY: [employer] [id number] Hemoglobin A1c 5.7 % (Abnormal) Range: 4.8-5.6 Comments: . Pre-diabetes: 5.7 - 6.4 Diabetes: >6.4 Glycemic control for adults with diabetes: <7.0 24-Dvq-801573:27 IWUVY-YAUQWJKOMOZ-GISQN (50806) Comments: PATIENT WAS FASTINGPERFORMED BY: [facility] in the CloudInspira Medical Center ElmerOhncuw5794 [facility] [id number] BY: [address] [id number] AFP, Serum, Tumor Marker 4.0 ng/mL (Normal) Range: 0.0-8.3 Comments: Ozzie ECLIA methodology 61-Opm-631895:27 METABOLIC PANEL, Comments: PATIENT WAS FASTINGPERFORMED BY: [employer]70 [facility] [id number] BY: Validus[address] [id number] COMPREHENSIVE (50501) ALT (SGPT) 21 [iU]/L (Normal) Range: 0-32 [...] Glucose, Serum 84 mg/dL (Normal) Range: 65-99 32-Bog-869447:27 CBC with auto diff Comments: PATIENT WAS FASTINGPERFORMED BY: CB [facility] Qabehy2318 [facility] [id number] BY: BN [facility] Fshugqgtsu6410 [facility] [id number] (17310) Immature Grans (Abs) 0.0 {x10E3/uL} (Normal) Range: [...] 3.77-5.28 WBC 7.7 {x10E3/uL} (Normal) Range: 3.4-10.8 83-Baj-519274:27 LIPID PANEL (71094) Comments: PATIENT WAS FASTINGPERFORMED BY: [employer] in the CloudLaura [place] 5181670 [facility] [id number] BY: [address] [id number] LDL/HDL Ratio 1.5 {ratio_units} (Normal) Range: 0.0-3.2 Comments: LDL/HDL Ratio Men Women 1/2 Avg.Risk 1.0 1.5 Av g.Risk 3.6 3.2 2X Avg.Risk 6.2 5.0 3X Avg.Risk 8.0 6.1 LDL Cholesterol Calc 69 mg/dL (Normal) Range: 0-99 VLDL Cholesterol Kirby 17 mg/dL (Normal) Range: 5-40 HDL Cholesterol 46 mg/dL (Normal) Triglycerides 85 mg/dL (Normal) Range: 0-149 Cholesterol, Total 132 mg/dL (Normal) Range: 100-199 26-Hkw-995948:27 IGA/IGD/IGG/IGM-EACH (67178) Comments: PATIENT WAS FASTINGPERFORMED BY: Gem[employer] Mobile TechnologiesLaura Ville 5181670 [facility] [id number] BY: [address] [id number] Immunoglobulin E, Total 18 {IU/mL} (Normal) Range: 0-100 Immunoglobulin M, Qn, Serum 43 mg/dL (Normal) Range: 26-217 Immunoglobulin A, Qn, Serum 332 mg/dL (Normal) Range: 87-352 Immunoglobulin G, Qn, Serum 848 mg/dL (Normal) Range: 700-1600 1-Rko-390109:23 METABOLIC PANEL, COMPREHENSIVE Comments: PATIENT NOT FASTINGPERFORMED BY: Gem[employer] Mobile TechnologiesLaura [place]ille 5181670 [facility] [id number] (94290) ALT (SGPT) 16 [iU]/L (Normal) Range: 0-32 [...] Glucose, Serum 92 mg/dL (Normal) Range: 65-99 08-Nsm-727640:10 RUBEOLA IgG (85132) Comments: PATIENT NOT FASTINGPERFORMED BY: [employer] Whistle.co.ukFirstHealth [id number] Rubeola Ab, IgG 44.9 AU/mL (Normal) Comments: Negative <25.0 Equivocal 25.0 - 29.9 Positive >29.9 Presence of antibodies to Rubeola is presumptive evidence of immunity except when acute infection is suspected. 50-Wsg-693224:10 RUBELLA IgG (12300) Comments: PATIENT NOT FASTINGPERFORMED BY: [employer] Rhfkvv8917 [place] [facility] PowerFirstHealth [id number] Rubella Antibodies, IgG 17.40 {index} (Normal) Comments: Non-immune <0.90 Equivocal 0.90 - 0.99 Immune >0.99 :10 MUMPS IgG (06104) Comments: PATIENT NOT FASTINGPERFORMED BY: [employer] Gmpnif5202 [place] [facility] PowerFirst[facility] [id number] Mumps Abs, IgG >300.0 AU/mL (Normal) Comments: Negative <9.0 Equivocal 9.0 - 10.9 Positive >10.9 A positive result genera lly indicates past exposure to Mumps virus or previous vaccination. 9-Flh-101048:23 HEPATITIS C ANTIBODY (58289) Comments: PATIENT NOT FASTINGPERFORMED BY: [employer])CoLaura Ville 5181670 [facility] [id number] Hep C Virus Ab 0.1 {s/co_ratio} (Normal) Range: 0.0-0.9 Comments: Negative: < 0.8 Indeterminate: 0.8 - 0.9 Positive: > 0.9 . The CDC recommends that a positive HCV antibody result be followed up with a HCV Nucleic Acid Amplification test (529364). :07 AFP, Tumor Marker Comments: Is Patient ? [facility] (refer to report for specific site)refer to report for address and phone number AFP TUMOR 2253 3.9 ng/mL (Normal) Range: 0.0-8.3 Comments: Last 2 Left ECLIA methodologyPerformed at: [facility] Lab[address] [id number] Director: Harjinder Houston PhD, Phone: [phone] 37-Phj-428097:07 Comprehensive Metabolic Profil Comments: [facility] Jwrqzlcnqa[address] [place], [address] GAP 6 (Normal) Range: 5-15 CO2 27.0 [...] 7-18 GLU 80 mg/dL (Normal) Range: 70-110 73-Grh-213106:07 Hemoglobin A1c Comments: [facility] Zjvfksfamg[address] [place], [address] HGB A1C 5.9 % (Normal) Range: 4.2-6.3 73-Mmb-693565:07 Lipid Profile Comments: [facility] Nhxjsoektf[address] [place], [place], [id number] VLDL 18 mg/dL (Normal) Range: 5-40 LDL [...] 200-240 mg/dL Borderline >240 mg/dL High Risk 05-Ruu-098731:07 Thyroid Stim Hormone (TSH) Comments: [facility] Ijsgxium[address] [place], [address] TSH 1.11 {uIU/mL} (Normal) Range: 0.358-3.74 :07 Vitamin B12 401 pg/mL (Normal) Comments: [facility] Qtznvtovmd[address] [place], [address]36[address] Range: 211-911 :07 Vitamin D,25 Hydroxy Comments: [facility] Lwsijzndtd[address] [place], [address] Vitamin D 25-OH 37.7 ng/mL (Normal) Comments: Vitamin D 25(OH) Status Range Deficiency <20 ng/mL (50nmol/L) Insuffciency 20 - 30 ng/mL (50 - 75 nmol/L) Sufficiency 30 - 100 ng/mL (75 - 250 nmol/L) Toxicity >100 ng/mL (>250 nmol/L) :54 TSH (67536) Comments: PATIENT WAS FASTINGPERFORMED BY: ValidusAspirus [facility] Hospital6[address] RoadDublin [place] [id number] TSH 1.440 {uIU/mL} (Normal) Range: 0.450-4.500 41-Uca-361920:54 VITAMIN B-12 (CYANOCOBALAMIN) Comments: PATIENT WAS FASTINGPERFORMED BY: LabAspirus [facility] Hospital6370 [facility] [place] [id number] (09518) Vitamin B12 273 pg/mL (Normal) Range: 211-946 9-Umo-512298:47 Vitamin D Hydroxy Comments: PATIENT WAS FASTINGPERFORMED BY: [place] 091047 [facility] [id number] BY: LabCo Rzcxly7823 [address] RoadDublin [place] [id number] (73735) Vitamin D, 25-Hydroxy 29.6 ng/mL (Abnormal) Range: 30.0-100.0 Comments: Vitamin D deficiency has been defined by the [place] of[place]icine and an Endocrine Society practice guideline as alevel of serum 25-OH vitamin D less than 20 ng/mL (1,2).The Endocrine Society went on to further define vitamin Dinsufficiency as a level between 21 and 29 ng/mL (2).1. IOM ([place] of Medicine). 2010. Dietary reference intakes for calcium and D. [place]: The National Academies Press.2. Myla MF, Javier [place], Panfilo MANN, et al. Evaluation, treatment, and prevention of vitamin D deficiency: an Endocrine Society clinical practice guideline. JCEM. 2010; 96(7):1911-30. 3-Xcx-614552:47 METABOLIC PANEL, Comments: PATIENT WAS FASTINGPERFORMED BY: BN [facility] Emknukoyjp9360 [facility] [id number] BY: CB [facility] Tccpzv5345 [facility] [id number] [facility] (07442) ALT (SGPT) 21 [iU]/L (Normal) Range: 0-32 [...] Glucose, Serum 87 mg/dL (Normal) Range: 65-99 7-Nbp-693140:47 LIPOPROTEIN, BLD, BY NMR Comments: PATIENT WAS FASTINGPERFORMED BY: BN [facility] Cpkywulrwc4922 [facility] [id number] BY: CB [facility] Hdzkox5940 [facility] [id number] Information: T56489, 438150 (65722) LP-IR Score 69 (Abnormal) Comments: INSULIN RESISTANCE MARKER <--Insulin Sensitive Insulin Resistant--> Percentile in Reference PopulationInsulin Resistance ScoreLP-IR Score Low 25th 50th 75th High <27 27 45 63 >63LP-IR Score is inaccurate if patient is non-fasting. .The LP-IR score is a laboratory developed i [facility] that has beenassociated with insulin [...] MICROALBUMIN: CREATININE Comments: PATIENT WAS FASTINGPERFORMED BY: LogicTreeton1447 [facility] [id number] BY: Car in the CloudUNM Sandoval Regional Medical CenterPileae1871 [facility] [id number] RATIO (92031) AND (16264) Microalb/Creat Ratio 10.3 {mg/g_creat} (Normal) Range: 0.0-30.0 Microalbumin, Urine 16.3 ug/mL (Normal) Creatinine, Urine 157.7 mg/dL (Normal) :47 HGB A1C (04671) Comments: PATIENT WAS FASTINGPERFORMED BY: [employer] LabSnapdealInvpoamfvw0912 [facility] [id number] BY: [facility] HospitalVoulezVousDiner Knwrkn1403 [facility] [id number] Hemoglobin A1c 6.1 % (Abnormal) Range: 4.8-5.6 Comments: . Pre-diabetes: 5.7 - 6.4 Diabetes: >6.4 Glycemic control for adults with diabetes: <7.0 :4 ASPIRATION (SLIDES ONLY) See Note (Normal) Comments: [facility] Odvravqsmg[address] [place], [place], [id number] 5 Comments: Patient: AMY VALDOVINOS : 1965 (51/F) Acct Num: [id number] Phys: Devroah DÍAZ,Richar Unit Num: [id number] Loc: LABSPEC Specimen: [id number] Received: 10/07/16 - 1206 Spec Type: ASPIRATION TISSUES TISSUES: COMMENT The specimen is paucicellular and contains rare benign follicular cells and focal chronic inflammatory cells. Clinical correlation is suggested. CYTOLOGY GROSS Received are eight smears labeled with the patient's name and designated per therequisition as FNA left thyroid. Submitted for staining. 10/07/16 TC:5 CPT: 63826 CYTOLOGY STUDY Slides are reviewed. DIAGNOSIS CYTOLOGY Fine needle aspiration, left thyroid nodule (smears): Negative, consistent with colloid nodule. AM:cecil 10/10/16 HEADER OPERATION: Ult rasound-guided fine needle aspiration, left thyroid PRE-OP DIAGNOSIS: Multinodular goiter E04.2 TISSUE SUBMITTED: Fine needle aspiration, left thyroid (8 slides) Signed Enio Madhuri 10/10/16 <signature on file> 8-Ygz-685341:56 JJPMC-KUJPQZUMFVE-PPJHF (28139) Comments: PATIENT WAS FASTINGPERFORMED BY: CBIT A/S [facility] [id number] BY: zLenseCentral [facility] Hospital [id number] AFP, Serum, Tumor Marker 3.2 ng/mL (Normal) Range: 0.0-8.3 Comments: Last 2 Left ECLIA methodology 6-Hgi-316580:56 VITAMIN B-12 (CYANOCOBALAMIN) Comments: PATIENT WAS FASTINGPERFORMED BY: [employer]/S [facility] [id number] BY: zLenseCentral [facility] Hospital [id number] (73681) Vitamin B12 302 pg/mL (Normal) Range: 211-946 8-Vkb-664569:56 Vitamin D Hydroxy Comments: PATIENT WAS FASTINGPERFORMED BY: [employer]7 [facility] [id number] BY: Car in the CloudInspira Medical Center ElmerGcgwza6204 [facility] [id number] (56904) Vitamin D, 25-Hydroxy 25.1 ng/mL (Abnormal) Range: 30.0-100.0 Comments: Vitamin D deficiency has been defined by the [place] of[place]icine and an Endocrine Society practice guideline as alevel of serum 25-OH vitamin D less than 20 ng/mL (1,2).The Endocrine Society went on to further define vitamin Dinsufficiency as a level between 21 and 29 ng/mL (2).1. IOM ([place] of Medicine). 2010. Dietary reference intakes for calcium and D. [place]: The National Academies Press.2. Myla MF, Javier STUART, Panfilo MANN, et al. Evaluation, treatment, and prevention of vitamin D deficiency: an Endocrine Society clinical practice guideline. JCEM. 2010; 96(7):1911-30. 9-Bjg-683681:56 CBC W/AUTO DIFF WBC Comments: PATIENT WAS FASTINGPERFORMED BY: [employer] [address] [id number] BY: Car in the CloudInspira Medical Center ElmerKifywm8876 [facility] [id number] (55966) Immature Grans (Abs) 0.0 {x10E3/uL} (Normal) Range: [...] 3.77-5.28 WBC 9.9 {x10E3/uL} (Normal) Range: 3.4-10.8 9-Doy-604498:56 METABOLIC PANEL, Comments: PATIENT WAS FASTINGPERFORMED BY: BN [facility] [address] [id number] BY: CB [facility] Mgltln1704 [facility] [id number] COMPREHENSIVE (83694) ALT (SGPT) 18 [iU]/L (Normal) Range: 0-32 [...] Glucose, Serum 89 mg/dL (Normal) Range: 65-99 6-Cev-802563:56 LIPOPROTEIN, BLD, BY NMR Comments: PATIENT WAS FASTINGPERFORMED BY: BN [facility] Resdabanqo7425 [facility] [id number] BY: CB [facility] Fmkgcg9349 [facility] [id number] (92855) LP-IR Score 66 (Abnormal) Comments: INSULIN RESISTANCE MARKER <--Insulin Sensitive Insulin Resistant--> Percentile in Reference PopulationInsulin Resistance ScoreLP-IR Score Low 25th 50th 75th High <27 27 45 63 >63LP-IR Score is inaccurate if patient is non-fasting. .The LP-IR score is a laboratory developed i [facility] that has beenassociated with insulin [...] were developed and their performance characteristicsdetermined by [employer]. These assays have not been cleared by [...] 1600 - 2000 Very High > 2000 1-Zex-107762:10 HgA1C , Office (49409) HgA1C , Office 5.8 % (Normal) Range: 4.6 - 7.1 8-Ljr-055257:10 Blood Glucose , Office (23237) Blood Glucose , Office 80 (Normal) 37-Dek-363070:18 Magnesium (58539) Comments: PATIENT NOT FASTINGPERFORMED BY: [employer] [employer]6370 VacaTrulySocialCentral [facility] [id number] Magnesium, Serum 2.3 mg/dL (Normal) Range: 1.6-2.3 :35 LYKRR-VZCTYHUOPLV-RCSRA (20836) Comments: PATIENT WAS FASTINGPERFORMED BY: [employer]70 [facility] [id number] AFP, Serum, Tumor Marker 3.0 ng/mL (Normal) Range: 0.0-8.3 Comments: Ozzie ECLIA methodology :35 CBC W/AUTO DIFF WBC Comments: PATIENT WAS FASTINGPERFORMED BY: zLenseCentral [facility] Hospital [id number] Information: [id number] (34595) Immature Grans (Abs) 0.0 {x10E3/uL} (Normal) Range: [...] 3.77-5.28 WBC 7.4 {x10E3/uL} (Normal) Range: 3.4-10.8 49-Tfp-08257:35 METABOLIC PANEL, COMPREHENSIVE Comments: PATIENT WAS FASTINGPERFORMED BY: CHUY [facility] Zsehjo8950 [facility] [id number] (38751) ALT (SGPT) 14 [iU]/L (Normal) Range: 0-32 [...] Glucose, Serum 83 mg/dL (Normal) Range: 65-99 31-Kbq-361632:10 CBC W/AUTO DIFF WBC Comments: PATIENT WAS FASTINGPERFORMED BY: [facility] ElmerAlghcy2420 [facility] [id number] Information: [id number] (28915) Immature Grans (Abs) 0.0 {x10E3/uL} (Normal) Range: [...] 3.77-5.28 WBC 7.1 {x10E3/uL} (Normal) Range: 3.4-10.8 50-Vlx-749621:10 METABOLIC PANEL, COMPREHENSIVE Comments: PATIENT WAS FASTINGPERFORMED BY: [facility] ElmerWnajgu1335 [facility] [id number] (33090) ALT (SGPT) 14 [iU]/L (Normal) Range: 0-32 [...] Glucose, Serum 79 mg/dL (Normal) Range: 65-99 67-Zhl-257402:10 TSH (32455) Comments: PATIENT WAS FASTINGPERFORMED BY: [facility] [id number] TSH 0.891 {uIU/mL} (Normal) Range: 0.450-4.500 44-Emy-111983:10 LIPID PANEL (13221) Comments: PATIENT WAS FASTINGPERFORMED BY: [facility] ElmerAebbbw3856 [facility] [id number] LDL/HDL Ratio 2.0 {ratio_units} Range: 0.0-3.2 (Normal) Comments: LDL/HDL Ratio Men Women 1/2 Avg.Risk 1.0 1.5 Av g.Risk 3.6 3.2 2X Avg.Risk 6.2 5.0 3X Avg.Risk 8.0 6.1 LDL Cholesterol Calc 88 mg/dL (Normal) Range: 0-99 VLDL Cholesterol Kirby 14 mg/dL (Normal) Range: 5-40 HDL Cholesterol 44 mg/dL (Normal) Comments: According to ATP-III Guidelines, HDL-C >59 mg/dL is considered anegative risk factor for CHD. Triglycerides 70 mg/dL (Normal) Range: 0-149 Cholesterol, Total 146 mg/dL (Normal) Range: 100-199 ASPIRATION (SLIDES ONLY) See Note (Normal) Comments: [facility] [address] [place], [place], [address] :06 Comments: Patient: AMY VALDOVINOS : 1965 (50/F) Acct Num: [id number] Phys: Richar Fairchild MD Unit Num: [id number] Loc: LABSPEC Specimen: [id number] Received: 12/15/15 - [...] Levi 12/16/15 <signature on file> :19 TSH (17083) Comments: PATIENT NOT FASTINGPERFORMED BY: [employer] Mautsm1278 [facility]Central [facility] [id number] TSH 1.250 {uIU/mL} (Normal) Range: 0.450-4.500 :19 T4, FREE (THYROXINE) Comments: PATIENT NOT FASTINGPERFORMED BY: [employer] Hmjvxf8286 Seed&[facility]arkCentral [facility] Hospital [id number] Information: [id number] (49380) T4,Free(Direct) 1.12 ng/dL (Normal) Range: 0.82-1.77 02-Pmh-001532:19 T3, FREE (TRIDOTHYRONINE) (20041) Comments: PATIENT NOT FASTINGPERFORMED BY: [employer] Cobzpt9517 [facility]Central [facility] [id number] Triiodothyronine,Free,Serum 3.3 pg/mL (Normal) Range: 2.0-4.4 93-Fkn-235337:15 SED RATE ERYTHROCYTE (95156) Comments: PATIENT NOT FASTINGPERFORMED BY: [employer] Dgimfc7586 [facility] [id number] Sedimentation Rate-Westergren 6 mm/h (Normal) Range: 0-40 06-Ktn-217355:15 C-REACTIVE PROTEIN (47826) Comments: PATIENT NOT FASTINGPERFORMED BY: [facility]6[address] [facility] [id number] C-Reactive Protein, Quant 3.9 mg/L (Normal) Range: 0.0-4.9 33-Xeg-997657:15 METABOLIC PANEL, COMPREHENSIVE Comments: PATIENT NOT FASTINGPERFORMED BY: [facility]6[address] [facility] [id number] (15003) ALT (SGPT) 35 [iU]/L (Abnormal) Range: 0-32 [...] Glucose, Serum 76 mg/dL (Normal) Range: 65-99 03-Ddq-992020:15 EBV Panel (52695) Comments: PATIENT NOT FASTINGPERFORMED BY: [facility]6370 [facility] [id number] Interpretation: SPRCS (Normal) Comments: EBV Interpretation Chart [...] <36.0 Equivocal 36.0 - 43.9 Positive >43.9 30-Vfj-107820:15 CBC, PLATELETS & MANUAL Comments: PATIENT NOT FASTINGPERFORMED BY: [facility] ElmerLfgoag4951 [facility] [id number] Information: [id number] DIFF (98411) Immature Grans (Abs) 0.0 {x10E3/uL} (Normal) Range: [...] 3.77-5.28 WBC 8.8 {x10E3/uL} (Normal) Range: 3.4-10.8 00-Cpz-428108:00 CBC with auto diff Comments: PERFORMED BY: [facility]6[address] [facility] [id number] Information: NURSE DRAW (14709) Immature Grans (Abs) 0.0 {x10E3/uL} (Normal) Range: [...] 3.77-5.28 WBC 8.6 {x10E3/uL} (Normal) Range: 3.4-10.8 06-Cei-764786:00 METABOLIC PANEL, COMPREHENSIVE Comments: PERFORMED BY: [facility] ElmerNtqtlt2287 [facility] [id number] (22667) ALT (SGPT) 19 [iU]/L (Normal) Range: 0-32 [...] Glucose, Serum 93 mg/dL (Normal) Range: 65-99 78-Owp-426871:00 FTFOF-OKQTDNJHWQU-GFYNK (09774) Comments: PERFORMED BY: [facility] in the CloudInspira Medical Center ElmerDcsbwr1181 [facility] [id number] AFP, Serum, Tumor Marker 3.2 ng/mL (Normal) Range: 0.0-8.3 Comments: Ozzie ECLIA methodology 43-Hvt-621060:28 HgA1C , Office (17986) HgA1C , Office 5.9 % (Normal) Range: 4.6 - 7.1 8-Wzx-715337:22 URINE KENROY CULTURE-JUAN COL Comments: PATIENT NOT FASTINGPERFORMED BY: [facility] [place] [address] [id number] Information: SRC:[facility] [id number] COUNT (03083) Result 1 NG36 (Normal) Comments: No growth in 36 - 48 hours. Urine Culture,Comprehensive Final report (Normal) 3-Mvl-955047:36 Urinalysis, Office (67750) UA - LEUKOCYTE ESTERASE Small (Normal) UA - NITRITE Negative (Normal) URINE UROBILINGN JUAN TIMED Normal mg/dL (Normal) UA - PROTEIN Negative mg/dL (Normal) UA - PH 6.5 (Normal) UA - BLOOD Negative (Normal) UA - SPECIFIC GRAVITY 1.005 (Normal) UA - KETONES Negative mg/dL (Normal) UA - BILIRUBIN Negative (Normal) UA - GLUCOSE Negative (Normal) 09-Arc-792975:04 CBC W/AUTO DIFF WBC Comments: PATIENT WAS FASTINGPERFORMED BY: [facility] [facility] [id number] Information: [id number] (38640) Immature Grans (Abs) 0.0 {x10E3/uL} (Normal) Range: [...] 3.77-5.28 WBC 8.2 {x10E3/uL} (Normal) Range: 3.4-10.8 88-Nyn-681786:04 METABOLIC PANEL, COMPREHENSIVE Comments: PATIENT WAS FASTINGPERFORMED BY: [facility] ElmerSmpxnq0152 [facility] [id number] (70283) ALT (SGPT) 20 [iU]/L (Normal) Range: 0-32 [...] Glucose, Serum 74 mg/dL (Normal) Range: 65-99 53-Aze-221296:04 LIPID PANEL (96540) Comments: PATIENT WAS FASTINGPERFORMED BY: [place] [place] [id number]; apt. 05-15-15 LDL/HDL Ratio 2.1 {ratio_units} Range: 0.0-3.2 (Normal) Comments: LDL/HDL Ratio Men Women 1/2 Avg.Risk 1.0 1.5 Av g.Risk 3.6 3.2 2X Avg.Risk 6.2 5.0 3X Avg.Risk 8.0 6.1 LDL Cholesterol Calc 96 mg/dL (Normal) Range: 0-99 VLDL Cholesterol Kirby 12 mg/dL (Normal) Range: 5-40 HDL Cholesterol 45 mg/dL (Normal) Comments: According to ATP-III Guidelines, HDL-C >59 mg/dL is considered anegative risk factor for CHD. Triglycerides 61 mg/dL (Normal) Range: 0-149 Cholesterol, Total 153 mg/dL (Normal) Range: 100-199 AFP, Serum, Tumor 3.0 ng/mL (Normal) Comments: PATIENT WAS FASTINGPERFORMED BY: zLenseCentral [facility] [id number] 59:38 Marker Range: 0.0-8.3 Comments: Ozzie ECLIA methodology 04-Xcp-79448:38 CBC With Differential/Platelet Comments: PATIENT WAS FASTINGPERFORMED BY: zLenseCentral [facility] [id number] Information: [id number] Immature Grans (Abs) 0.0 {x10E3/uL} (Normal) Range: [...] 3.77-5.28 WBC 7.8 {x10E3/uL} (Normal) Range: 3.4-10.8 21-Hyn-87727:38 Comp. Metabolic Panel (14) Comments: PATIENT WAS FASTINGPERFORMED BY: [facility] ElmerQgngxn6122 [facility] [id number] ALT (SGPT) 13 [iU]/L (Normal) Range: 0-32 [...] % (Abnormal) Comments: PATIENT WAS FASTINGPERFORMED BY: [facility] [id number]; f/u on 02/06 38 Range: 4.8-5.6 Comments: . Increased risk for diabetes: 5.7 - 6.4 Diabetes: >6.4 Glycemic control for adults with diabetes: <7.0 :38 Lipid Panel With LDL/HDL Comments: PATIENT WAS FASTINGPERFORMED BY: [employer]6370 [facility] [id number] Ratio LDL/HDL Ratio 3.1 {ratio_units} (Normal) Range: 0.0-3.2 Comments: LDL/HDL Ratio Men Women 1/2 Avg.Risk 1.0 1.5 Av g.Risk 3.6 3.2 2X Avg.Risk 6.2 5.0 3X Avg.Risk 8.0 6.1 LDL Cholesterol Calc 139 mg/dL (Abnormal) Range: 0-99 VLDL Cholesterol Kirby 23 mg/dL (Normal) Range: 5-40 HDL Cholesterol 45 mg/dL (Normal) Comments: According to ATP-III Guidelines, HDL-C >59 mg/dL is considered anegative risk factor for CHD. Triglycerides 114 mg/dL (Normal) Range: 0-149 Cholesterol, Total 207 mg/dL (Abnormal) Range: 100-199 49-Dou-32645:38 Microalb/Creat Ratio, Randm Ur Comments: PATIENT WAS FASTINGPERFORMED BY: [facility] Hgqpoc7359 [facility] [id number] Microalb/Creat Ratio 19.0 {mg/g_creat} Range: 0.0-30.0 (Normal) Microalbumin, Urine 23.5 ug/mL (Abnormal) Range: 0.0-17.0 Creatinine, Urine 124.0 mg/dL (Normal) Range: 15.0-278.0 05-Feb-2015 Vitamin D, 25-Hydroxy 32.7 ng/mL (Normal) Comments: PATIENT WAS FASTINGPERFORMED BY: [facility] Iycwyp4700 [facility] [id number] 9:38 Range: 30.0-100.0 Comments: Vitamin D deficiency has been defined by the [place] of[place]icine and an Endocrine Society practice guideline as alevel of serum 25-OH vitamin D less than 20 ng/mL (1,2).The Endocrine Society went on to further define vitamin Dinsufficiency as a level between 21 and 29 ng/mL (2).1. IOM ([place] of Medicine). 2010. Dietary reference intakes for calcium and D. [place]: The National Academies Press.2. Myla MF, Javier NC, Panfilo MANN, et al. Evaluation, treatment, and prevention of vitamin D deficiency: an Endocrine Society clinical practice guideline. JCEM. 2010; 96(7):1911-30. 54-Btx-306288:49 Comprehensive Metabolic Profil Comments: STAT CREATININE FOR MRITest performed at:[facility] Ofqjmbjhpo[address] [place] [address] ; Darrick GAP 3 (Abnormal) Range: 5-15 [...] 7-18 GLU 82 mg/dL (Normal) Range: 70-110 03-Ivl-444311:49 Hemoglobin A1c Comments: Test performed at:[facility] Ybgvdkkbyo1564 [place] [address] HGB A1C 5.7 % (Normal) Range: 4.2-6.3 64-Ygu-837936:49 Lipid Profile Comments: STAT CREATININE FOR MRITest performed at:[facility] Evwuwmkxau6865 [place] [address] VLDL 25 mg/dL (Normal) Range: 5-40 LDL [...] 200-240 mg/dL Borderline >240 mg/dL High Risk 60-Crq-022707:49 Vitamin D,25 Hydroxy Comments: Test performed at:[facility] Pwvhqvxzbw28[address] [facility] [place], [place] [address] Vitamin D 25-OH 76.3 ng/mL (Normal) Comments: Vitamin D 25(OH) Status Range Deficiency <20 ng/mL (50nmol/L) Insuffciency 20 - 30 ng/mL (50 - 75 nmol/L) Sufficiency 30 - 100 ng/mL (75 - 250 nmol/L) Toxicity >100 ng/mL (>250 nmol/L) 5-Eqv-088990:15 Culture, Urine Comments: Test performed at:[facility] Xxavnszxnt9703 [place] [address] CUUR See Note (Normal) Comments: Urine CultureORGANISM 1: Mixed Gram Positive OrganismsColony Count 11,000-25,000MIX CONTAM Mixed Contaminants. Submit new specimen if indicated. 1-Xlz-264231:23 Lipid Panel (80543) Comments: PATIENT WAS FASTINGPERFORMED BY: [facility] [id number] LDL/HDL Ratio 2.9 {ratio_units} (Normal) Range: 0.0-3.2 Comments: LDL/HDL Ratio Men Women 1/2 Avg.Risk 1.0 1.5 Av g.Risk 3.6 3.2 2X Avg.Risk 6.2 5.0 3X Avg.Risk 8.0 6.1 LDL Cholesterol Calc 104 mg/dL (Abnormal) Range: 0-99 VLDL Cholesterol Kirby 24 mg/dL (Normal) Range: 5-40 HDL Cholesterol 36 mg/dL (Abnormal) Comments: According to ATP-III Guidelines, HDL-C >59 mg/dL is considered anegative risk factor for CHD. Triglycerides 121 mg/dL (Normal) Range: 0-149 Cholesterol, Total 164 mg/dL (Normal) Range: 100-199 9-Nnp-521973:23 Metabolic Panel, Comments: PATIENT WAS FASTINGPERFORMED BY: [facility] [id number] Information: [id number] Comprehensive (94149) ALT (SGPT) 24 [iU]/L (Normal) Range: 0-32 [...] Glucose, Serum 94 mg/dL (Normal) Range: 65-99 98-Hjp-318777:49 CALCIFEDIOL (40909) Comments: PATIENT NOT FASTINGPERFORMED BY: [facility] ElmerAfdayf9961 [facility] [id number] Vitamin D, 25-Hydroxy 18.9 ng/mL (Abnormal) Range: 30.0-100.0 Comments: Vitamin D deficiency has been defined by the [place] of[place]icine and an Endocrine Society practice guideline as alevel of serum 25-OH vitamin D less than 20 ng/mL (1,2).The Endocrine Society went on to further define vitamin Dinsufficiency as a level between 21 and 29 ng/mL (2).1. IOM ([place] of Medicine). 2010. Dietary reference intakes for calcium and D. [place]: The National Academies Press.2. Myla MF, Javier STUART, Panfilo MANN, et al. Evaluation, treatment, and prevention of vitamin D deficiency: an Endocrine Society clinical practice guideline. JCEM. 2010; 96(7):1911-30. 34-Nvt-359578:52 Hemoglobin A1c Comments: Test performed at:[facility] Kjexvnxlya16[address] [place] [address] HGB A1C 6.4 % (Abnormal) Range: 4.2-6.3 :52 Lipid Profile Comments: Test performed at:[facility] [address] [place], [place] [address] VLDL 35 mg/dL (Normal) Range: 5-40 LDL [...] Risk :52 Liver Profile Comments: Test performed at:[facility] [address] [place], [place] [address] D BILI 0.10 mg/dL (Normal) Range: 0.00-0.30 T BILI 0.50 mg/dL (Normal) Range: 0.00-4.00 ALT 43 U/L (Normal) Range: 12-78 ALK P 92 U/L (Normal) Range: 50-136 AST 18 U/L (Normal) Range: 15-37 GLOB 3.5 g/dL (Normal) Range: 2.7-4.2 ALB 4.0 g/dL (Normal) Range: 3.4-5.0 T PROT 7.5 g/dL (Normal) Range: 6.4-8.2 35-Fmj-320879:50 Serum Creatinine AND GFR Comments: Has pt arrived? YTest performed at:[facility] [address] [place] [address] EST GFR - AA 86 mL/min (Normal) EST GFR 71 mL/min (Normal) CREAT,SERUM 0.9 mg/dL (Normal) Range: 0.6-1.0 14-Obw-491950:38 Hepatic Function Panel Comments: PATIENT WAS FASTINGPERFORMED BY: [employer] [facility] [id number] Information: [id number] (7) ALT (SGPT) 36 [iU]/L (Abnormal) Range: 0-32 AST (SGOT) 23 [iU]/L (Normal) Range: 0-40 Alkaline Phosphatase, S 107 [iU]/L (Normal) Range: 39-117 Bilirubin, Direct 0.13 mg/dL (Normal) Range: 0.00-0.40 Bilirubin, Total 0.3 mg/dL (Normal) Range: 0.0-1.2 Albumin, Serum 4.7 g/dL (Normal) Range: 3.5-5.5 Protein, Total, Serum 7.3 g/dL (Normal) Range: 6.0-8.5 01-Jul-2014 Written Authorization WAR (Normal) Comments: PATIENT WAS FASTINGPERFORMED BY: [employer] Aqdiyb7931 [facility] [id number] 13:38 Comments: Written Authorization Received.Authorization received from GEORGE OSCAR LPN [id number] by Sandrita Onofre 93-Bag-019051:38 CALCIFEDIOL (44941) Comments: PATIENT WAS FASTINGPERFORMED BY: [employer] Bjyqdp8338 [facility] [id number] Vitamin D, 25-Hydroxy 30.1 ng/mL (Normal) Range: 30.0-100.0 Comments: Vitamin D deficiency has been defined by the [place] of[place]icine and an Endocrine Society practice guideline as alevel of serum 25-OH vitamin D less than 20 ng/mL (1,2).The Endocrine Society went on to further define vitamin Dinsufficiency as a level between 21 and 29 ng/mL (2).1. IOM ([place] of Medicine). 2010. Dietary reference intakes for calcium and D. [place]: The National Academies Press.2. Myla MF, Javier STUART, Panfilo MANN, et al. Evaluation, treatment, and prevention of vitamin D deficiency: an Endocrine Society clinical practice guideline. JCEM. 2010; 96(7):1911-30. 57-Ibt-087155:38 LIPID PANEL (74561) Comments: PATIENT WAS FASTINGPERFORMED BY: [facility] ElmerVelkrm5037 [facility] [id number] Information: [id number] LDL/HDL Ratio 4.2 {ratio_units} (Abnormal) Range: 0.0-3.2 Comments: LDL/HDL Ratio Men Women 1/2 Avg.Risk 1.0 1.5 Av g.Risk 3.6 3.2 2X Avg.Risk 6.2 5.0 3X Avg.Risk 8.0 6.1 LDL Cholesterol Calc 161 mg/dL (Abnormal) Range: 0-99 VLDL Cholesterol Kirby 25 mg/dL (Normal) Range: 5-40 HDL Cholesterol 38 mg/dL (Abnormal) Comments: According to ATP-III Guidelines, HDL-C >59 mg/dL is considered anegative risk factor for CHD. Triglycerides 127 mg/dL (Normal) Range: 0-149 Cholesterol, Total 224 mg/dL (Abnormal) Range: 100-199 02-Dyw-972751:49 HEPATIC FUNCTION PANEL Comments: PATIENT NOT FASTINGPERFORMED BY: [facility] ElmerHadfqs8552 [facility] [id number] Information: [id number] (17967) ALT (SGPT) 193 [iU]/L (Abnormal) Range: 0-32 AST (SGOT) 43 [iU]/L (Abnormal) Range: 0-40 Alkaline Phosphatase, S 135 [iU]/L (Abnormal) Range: 39-117 Bilirubin, Direct 0.18 mg/dL (Normal) Range: 0.00-0.40 Bilirubin, Total 0.3 mg/dL (Normal) Range: 0.0-1.2 Albumin, Serum 4.1 g/dL (Normal) Range: 3.5-5.5 Protein, Total, Serum 6.7 g/dL (Normal) Range: 6.0-8.5 55-Glh-644416:49 HEPATITIS PANEL (41631) Comments: PATIENT NOT FASTINGPERFORMED BY: [facility] [facility] [id number] Hep C Virus Ab <0.1 {s/co_ratio} (Normal) Range: 0.0-0.9 Comments: Negative: < 0.8 Indeterminate: 0.8 - 0.9 Positive: > 0.9 . In order to reduce the incidence of a false positive result, the CDC recommends that all s/co ratios between 1.0 and 10.9 be confirmed by a more specific supplemental or PCR testing. [facility] offers [facility] Ab w/Reflex to Verification test #[id number]. Hep B Core Ab, IgM Negative (Normal) HBsAg Screen Negative (Normal) Hep A Ab, IgM Negative (Normal) 69-Heq-634236:49 ANTIMITOCHONDRIAL ANTIBODY Comments: PATIENT NOT FASTINGPERFORMED BY: [facility] [facility] [id number] (39169) Atypical pANCA <1:20 {titer} (Normal) Comments: The [...] follow up testing ofpositive sera with both NV-3 and MPO- ANCA enzyme immunoassays. Asmany as 5% serum samp les are positive only by EIA.Ref. AM J Clin Pathol 1999;111:507-513. Cytoplasmic (C-ANCA) <1:20 {titer} (Normal) 73-Yky-916565:49 TRANSFERRIN (36294) Comments: PATIENT NOT FASTINGPERFORMED BY: [facility] [facility] [id number] Transferrin 259 mg/dL (Normal) Range: 200-370 22-Tfn-785440:49 GGT (GAMMA GLUTAMYLTRANSFERASE) Comments: PATIENT NOT FASTINGPERFORMED BY: [place] [address] [facility] [id number] (62372) GGT 385 [iU]/L (Abnormal) Range: 0-60 39-Lqi-702569:49 FERRITIN (34969) Comments: PATIENT NOT FASTINGPERFORMED BY: [address] [id number] Ferritin, Serum 447 ng/mL (Abnormal) Range: 15-150 75-Vbj-717509:49 CMV IGM ANTBDY (77292) Comments: PATIENT NOT FASTINGPERFORMED BY: [place] [address] [facility] [id number] Cytomegalovirus (CMV) Ab, IgM <30.0 AU/mL (Normal) Range: 0.0-29.9 Comments: Negative <30.0 Equivocal 30.0 - 34.9 Positive >34.9 A positive result is generally indicative of acute infection, reactivation or persistent IgM production. 96-Lld-642027:49 CERULOPLASMIN (10312) Comments: PATIENT NOT FASTINGPERFORMED BY: [facility] [facility] [id number] Ceruloplasmin 29.9 mg/dL (Normal) Range: 16.0-45.0 68-Ybb-521336:49 ASM (ANTI SMOOTH MUSCLE Comments: PATIENT NOT FASTINGPERFORMED BY: [place] [address] [facility] [id number] ANTIBODY) (36983) Actin (Smooth Muscle) Antibody 5 {Units} (Normal) Range: 0-19 Comments: Negative 0 - 19 Weak positive 20 - 30 Moderate to strong positive >30 . Actin Antibodies are found in 52-85% of patients with autoimmune hepatitis or chronic active hepatitis and in 22% of patients with primary biliary cirrhosis. 56-Feh-069728:49 ANTI-LIVER/KIDNEY MICROSOMAL Comments: PATIENT NOT FASTINGPERFORMED BY: [address] [id number] ANTIBODY (28751) Thyroid Peroxidase (TPO) Ab 9 {IU/mL} (Normal) Range: 0-34 62-Wqv-477341:49 LOLITA (ANTINUCLEAR ANTIBODY) Comments: PATIENT NOT FASTINGPERFORMED BY: [facility] Asaudx0176 [facility] [place] [id number] (07774) LOLITA Direct Negative (Normal) 13-Csg-417845:49 TSH (52229) Comments: PATIENT NOT FASTINGPERFORMED BY: [facility] Xdjmmh1603 [place] [facility] [place] [id number] TSH 1.520 {uIU/mL} (Normal) Range: 0.450-4.500 99-Hrv-272417:49 T4, FREE (THYROXINE) (33409) Comments: PATIENT NOT FASTINGPERFORMED BY: [facility] Qdyisj2842 [facility] [id number] T4,Free(Direct) 0.97 ng/dL (Normal) Range: 0.82-1.77 97-Gju-750282:49 T3, FREE (TRIDOTHYRONINE) (27683) Comments: PATIENT NOT FASTINGPERFORMED BY: [facility] [id number] Triiodothyronine,Free,Serum 3.2 pg/mL (Normal) Range: 2.0-4.4 14-Nos-103815:23 Throat Culture (24113) Comments: PATIENT NOT FASTINGPERFORMED BY: [facility] Fkxglt5872 [facility] [id number] Information: SRC:THRT [id number] Result 1 RRF (Normal) Comments: Routine respiratory edith Upper Respiratory Culture Final report (Normal) 75-Joa-35132:36 Rapid Strep Test, Office (24170) Rapid Strep Test, Office Negative (Normal) 01-Umg-57692:38 CALCIFEDIOL (91316) Comments: PATIENT WAS FASTINGPERFORMED BY: [facility] Ffwmfp9592 [facility] [place] [id number] Vitamin D, 25-Hydroxy 16.2 ng/mL (Abnormal) Range: 30.0-100.0 Comments: Vitamin D deficiency has been defined by the [place] ofMedicine and an Endocrine Society practice guideline as alevel of serum 25-OH vitamin D less than 20 ng/mL (1,2).The Endocrine Society went on to further define vitamin Dinsufficiency as a level between 21 and 29 ng/mL (2).1. IOM ([place] of Medicine). 2010. Dietary reference intakes for calcium and D. [place]: The National Academies Press.2. Myla MF, Javier STUART, Panfilo MANN, et al. Evaluation, treatment, and prevention of vitamin D deficiency: an Endocrine Society clinical practice guideline. JCEM. 2010; 96(7):1911-30. :38 Lipid Panel (44159) Comments: PATIENT WAS FASTINGPERFORMED BY: [employer]70 [facility] [id number] Information: [id number] LDL/HDL Ratio 3.8 {ratio_units} (Abnormal) Range: 0.0-3.2 Comments: LDL/HDL Ratio Men Women 1/2 Avg.Risk 1.0 1.5 Av g.Risk 3.6 3.2 2X Avg.Risk 6.2 5.0 3X Avg.Risk 8.0 6.1 LDL Cholesterol Calc 196 mg/dL (Abnormal) Range: 0-99 VLDL Cholesterol Kirby 30 mg/dL (Normal) Range: 5-40 HDL Cholesterol 51 mg/dL (Normal) Comments: According to ATP-III Guidelines, HDL-C >59 mg/dL is considered anegative risk factor for CHD. Triglycerides 151 mg/dL (Abnormal) Range: 0-149 Cholesterol, Total 277 mg/dL (Abnormal) Range: 100-199 :38 HEPATIC FUNCTION PANEL Comments: PATIENT WAS FASTINGPERFORMED BY: [id number] [facility] [id number] ([id number]) ALT (SGPT) 446 [iU]/L (Abnormal) Range: 0-32 AST (SGOT) 119 [iU]/L (Abnormal) Range: 0-40 Alkaline Phosphatase, S 176 [iU]/L (Abnormal) Range: 39-117 Bilirubin, Direct 0.59 mg/dL (Abnormal) Range: 0.00-0.40 Bilirubin, Total 1.2 mg/dL (Normal) Range: 0.0-1.2 Albumin, Serum 4.2 g/dL (Normal) Range: 3.5-5.5 Protein, Total, Serum 7.0 g/dL (Normal) Range: 6.0-8.5 :24 Metabolic Panel, Comprehensive Comments: PATIENT NOT FASTINGPERFORMED BY: [facility] CloudUNM [facility]oval [facility] [id number] [facility] [id number] (46605) ALT (SGPT) 40 [iU]/L (Abnormal) Range: 0-32 [...] Glucose, Serum 108 mg/dL (Abnormal) Range: 65-99 67-Eda-766032:24 CBC, Platelets & Auto Comments: PATIENT NOT FASTINGPERFORMED BY: [facility] CloudUN[facility] CenterOdmdzw8986 [facility] [id number] Information: [id number] Diff (43875) Immature Grans (Abs) 0.0 {x10E3/uL} (Normal) Range: [...] 3.77-5.28 WBC 10.1 {x10E3/uL} (Normal) Range: 3.4-10.8 40-Gfi-671234:09 URINE KENROY CULTURE-IDENTIFICATN Comments: PATIENT NOT FASTINGPERFORMED BY: [facility] Lnmdgh8282 [facility] [id number] Information: [id number] (74300) Result 1 MUG (Normal) Comments: Mixed urogenital flora1,000 Colonies/mL Urine Culture,Comprehensive Final report (Normal) 23-Agy-185652:21 Urinalysis, Office (67921) UA - LEUKOCYTE ESTERASE Trace (Normal) UA - NITRITE Negative (Normal) URINE UROBILINGN JUAN TIMED Normal mg/dL (Normal) UA - PROTEIN Negative mg/dL (Normal) UA - PH 6 (Abnormal) UA - BLOOD Negative (Normal) UA - SPECIFIC GRAVITY 1.025 (Normal) UA - KETONES Negative mg/dL (Normal) UA - BILIRUBIN Negative (Normal) UA - GLUCOSE Negative (Normal) 55-Kdp-663796:39 HEPATITIS B SURFACE ANTIBODY Comments: PATIENT NOT FASTINGPERFORMED BY: [address] [id number] (63326) Hep B Surface Ab, Qual Non Reactive (Normal) Comments: Non Reactive: Inconsistent with immunity, less than 10 mIU/mL Reactive: Consistent with immunity, greater than 9.9 mIU/mL 86-Kor-883441:39 HEPATITIS PANEL (60501) Comments: PATIENT NOT FASTINGPERFORMED BY: [facility]6[address] [facility] [id number] Information: [id number] Hep C Virus Ab 0.2 {s/co_ratio} (Normal) Range: 0.0-0.9 Comments: Negative: < 0.8 Indeterminate 0.8 - 0.9 Positive: > 0.9 . In order to reduce the incidence of a false positive result, the CDC recommends that all s/co ratios between 1.0 and 10.9 be confirmed by a more specific supplemental or PCR testing. [facility] offers HCV Ab w/Reflex to Verification test #360342. Hep B Core Ab, IgM Negative (Normal) HBsAg Screen Negative (Normal) Hep A Ab, IgM Negative (Normal) 53-Gsn-319008:39 [id number]-RVATL (55627) Comments: PATIENT NOT FASTINGPERFORMED BY: [address] [id number] AFP, Serum, Tumor Marker 2.8 ng/mL (Normal) Range: 0.0-8.3 Comments: Ozzie ECLIA methodology 1-Vee-878372:59 CBC, Platelets & Auto Diff Comments: PATIENT NOT FASTINGPERFORMED BY: [address] [id number] Information: [id number] (97675) Immature Grans (Abs) 0.0 {x10E3/uL} (Normal) Range: [...] 3.77-5.28 WBC 10.1 {x10E3/uL} (Normal) Range: 3.4-10.8 1-Lwl-360997:59 Metabolic Panel, Comprehensive Comments: PATIENT NOT FASTINGPERFORMED BY: [facility] Stdnhh9769 [facility] [id number] (12997) ALT (SGPT) 27 [iU]/L (Normal) Range: 0-32 [...] Glucose, Serum 125 mg/dL (Abnormal) Range: 65-99 1-Hzd-318558:08 Urinalysis, Office (15059) UA - LEUKOCYTE ESTERASE Moderate (Normal) UA - NITRITE Positive (Normal) URINE UROBILINGN JUAN TIMED Normal mg/dL (Normal) UA - PROTEIN Negative mg/dL (Normal) UA - PH 6 (Abnormal) UA - BLOOD non-hemolyzed trace (Normal) UA - SPECIFIC GRAVITY 1.020 (Normal) UA - KETONES Negative mg/dL (Normal) UA - BILIRUBIN Negative (Normal) UA - GLUCOSE Negative (Normal) 74-Qrh-833391:41 Urinalysis, Office (72902) UA - BILIRUBIN Negative (Normal) UA - BLOOD Negative (Normal) UA - GLUCOSE Negative (Normal) UA - KETONES Negative mg/dL (Normal) UA - LEUKOCYTE ESTERASE Negative (Normal) UA - NITRITE Negative (Normal) UA - PH 7.0 (Normal) UA - PROTEIN Negative mg/dL (Normal) UA - SPECIFIC GRAVITY 1.020 (Normal) URINE UROBILINGN JUAN TIMED Normal mg/dL (Normal) 78-Flj-63725:34 KENROY CULTURE-OTHER (01103) Comments: PATIENT NOT FASTINGPERFORMED BY: [address] [id number] Information: SRC: THROAT Result 1 RRF (Normal) Comments: Routine respiratory edith Upper Respiratory Culture Final report (Normal) 04-Qet-697680:20 [id number] (68594) Comments: PATIENT NOT FASTINGPERFORMED BY: [address] [id number] AFP, Serum, Tumor Marker 2.6 ng/mL (Normal) Range: 0.0-8.3 Comments: Ozzie ECLIA methodology 78-Qms-972462:20 PTT (Activated Partial Comments: PATIENT NOT FASTINGPERFORMED BY: [address] [id number] Thromboplastin Time) (26772) aPTT 31 {sec} (Normal) Range: 24-33 Comments: This test has not been validated for monitoring unfractionated heparintherapy. aPTT-based therapeutic ranges for unfractionated heparintherapy have not been established. For general guidelines onHeparin monitoring, refer to the [facility] Directory of Services. 93-Czm-552826:20 PT (Prothrobim Time) (62670) Comments: PATIENT NOT FASTINGPERFORMED BY: [place] [address] [facility] [id number] INR 1.0 (Normal) Range: 0.8-1.2 Comments: Reference interval is for non-anticoagulated patients. . Suggested INR therapeutic range for Vitamin K anta gonist therapy: Standard Dose (moderate intensity therapeutic range): 2.0 - 3.0 Higher intensity therapeutic range 2.5 - 3.5 Prothrombin Time 10.3 {sec} (Normal) Range: 9.1-12.0 76-Bei-572792:20 CBC WITH MANUAL DIFF Comments: PATIENT NOT FASTINGPERFORMED BY: [address] [id number] Information: [id number] (55640) Immature Grans (Abs) 0.0 {x10E3/uL} (Normal) Range: [...] 3.77-5.28 WBC 12.1 {x10E3/uL} (Abnormal) Range: 4.0-10.5 35-Orq-158895:49 GALLBLADDER Radiology Report See Note (Normal) Comments: [...] size of the right kidney. The right xjpacoxbagyvdx96.8 cm. Normal renal cortex. The right cortex measures 1.1 cm. Thereisno demonstrated renal mass or cyst. There is no right hydronephrosis. IMPRESSION:Solitary gallstone.Fatty infiltration of the liver. Signed:Jono Dumont M.D.October 11, 2012 at 2:01:18 PM [id number] Signed GP/GP If you are the referring physician and would like to consult with theradiologist who provided this interpretation, please contact Simone Espino at [phone]. If this radiologist is unavailable, youwi ll [...] 10/11/12 1406 Sign by: Jono Dumont MD 47-Chr-016567:14 C-REACTIVE PROTEIN (14591) Comments: PATIENT NOT FASTINGPERFORMED BY: CB [facility] Nwpgjv5367 [facility] [id number] C-Reactive Protein, Quant 11.5 mg/L (Abnormal) Range: 0.0-4.9 71-Ekt-890429:14 SED RATE ERYTHROCYTE (37369) Comments: PATIENT NOT FASTINGPERFORMED BY: CB [facility] Wnijhm3309 [facility] [id number] Sedimentation Rate-Westergren 7 mm/h (Normal) Range: 0-32 :14 CBC WITH MANUAL DIFF Comments: PATIENT NOT FASTINGPERFORMED BY: CB [facility] Arpqfc5372 [facility] [id number] Information: [id number] (11771) Immature Grans (Abs) 0.0 {x10E3/uL} (Normal) Range: [...] 3.77-5.28 WBC 13.1 {x10E3/uL} (Abnormal) Range: 4.0-10.5 97-Onp-372418:14 METABOLIC PANEL, COMPREHENSIVE Comments: PATIENT NOT FASTINGPERFORMED BY: [facility] ElmerMbkjgs9968 [facility] [id number] (19792) ALT (SGPT) 25 [iU]/L (Normal) Range: 0-32 [...] mg/dL (Abnormal) Range: 65-99 :52 Rapid Flu (75019 x 2) Influenza A Ag pos a (Normal) :01 Influenza A&B Viral Comments: PATIENT NOT FASTINGPERFORMED BY: [place] [address] [facility] [id number] Information: SRC:NOS [id number] Culture (03930) Viral Culture,Rapid,Influenza PFLUA (Abnormal) Comments: PositiveInfluenza A detected.. :40 LIPID PANEL (51568) Comments: PATIENT WAS FASTINGPERFORMED BY: [place] [address] [facility] [id number] LDL/HDL Ratio 3.0 {ratio_units} (Normal) Range: 0.0-3.2 LDL Cholesterol Calc 103 mg/dL (Abnormal) Range: 0-99 VLDL Cholesterol Kirby 33 mg/dL (Normal) Range: 5-40 Cholesterol, Total 170 mg/dL (Normal) Range: 100-199 HDL Cholesterol 34 mg/dL (Abnormal) Comments: According to ATP-III Guidelines, HDL-C >59 mg/dL is considered anegative risk factor for CHD. Triglycerides 163 mg/dL (Abnormal) Range: 0-149 :40 METABOLIC PANEL, Comments: PATIENT WAS FASTINGPERFORMED BY: [place] [address] [facility] [id number] Information: [id number] COMPREHENSIVE (11386) ALT (SGPT) 29 [iU]/L (Normal) Range: 0-32 [...] Glucose, Serum 87 mg/dL (Normal) Range: 65-99 11-Utc-25874:35 KENROY CULTURE-OTHER (26786) Comments: PATIENT NOT FASTINGPERFORMED BY: [employer]6370 [facility] [id number] Information: SRC:THRT Q10005 Result 1 RRF (Normal) Comments: Routine respiratory edith Upper Respiratory Culture Final report (Normal) 43-Xgm-01315:21 Rapid Strep Test, Office (13120) Rapid Strep Test, Office Negative (Normal) 6-Eak-703556:10 CBC With Differential/Platelet Comments: PATIENT WAS FASTINGPERFORMED BY: [employer] Zlhrpy8841 [facility] [id number] Immature Grans (Abs) 0.0 {x10E3/uL} (Normal) Range: [...] 3.77-5.28 WBC 9.3 {x10E3/uL} (Normal) Range: 4.0-10.5 2-Evx-644222:10 Comp. Metabolic Panel (14) Comments: PATIENT WAS FASTINGPERFORMED BY: [facility] ElmerGngiki8000 [facility] [id number] ALT (SGPT) 22 [iU]/L (Normal) Range: 0-40 [...] % (Abnormal) Comments: PATIENT WAS FASTINGPERFORMED BY: [facility] [id number] :10 Range: 4.8-5.6 Comments: . Increased risk for diabetes: 5.7 - 6.4 Diabetes: >6.4 Glycemic control for adults with diabetes: <7.0 4-Rus-546835:10 Lipid Panel With LDL/HDL Comments: PATIENT WAS FASTINGPERFORMED BY: [facility] [id number] Ratio LDL/HDL Ratio 4.3 {ratio_units} (Abnormal) Range: 0.0-3.2 LDL Cholesterol Calc 154 mg/dL (Abnormal) Range: 0-99 VLDL Cholesterol Kirby 23 mg/dL (Normal) Range: 5-40 HDL Cholesterol 36 mg/dL (Abnormal) Comments: According to ATP-III Guidelines, HDL-C >59 mg/dL is considered anegative risk factor for CHD. Triglycerides 115 mg/dL (Normal) Range: 0-149 Cholesterol, Total 213 mg/dL (Abnormal) Range: 100-199 :10 Microalb/Creat Ratio, Randm Ur Comments: PATIENT WAS FASTINGPERFORMED BY: [facility] [id number] Microalb/Creat Ratio 6.3 {mg/g_creat} (Normal) Range: 0.0-30.0 Creatinine, Urine 30.4 mg/dL (Normal) Range: 15.0-278.0 Microalbumin, Urine 1.9 ug/mL (Normal) Range: 0.0-17.0 :10 Microscopic Examination Comments: PATIENT WAS FASTINGPERFORMED BY: [facility] CloudInsp[facility] ElmerRqvesh2676 [facility] [id number] Bacteria Few (Normal) Mucus Threads Present (Normal) Epithelial Cells (non 0-10 {/hpf} Range: 0 - 10 renal) (Normal) RBC None seen {/hpf} Range: 0 - 3 (Normal) WBC 0-5 {/hpf} (Normal) Range: 0 - 5 TSH 2.190 {uIU/mL} Comments: PATIENT WAS FASTINGPERFORMED BY: [facility] CloudInsp[facility] ElmerHjyprj0237 [facility] [id number] :10 (Normal) Range: 0.450-4.500 :10 Urinalysis, Complete Comments: PATIENT WAS FASTINGPERFORMED BY: [facility] CloudInspira [facility] Center ElmerCaylxk4018 [facility] [id number] Microscopic Examination See below: (Normal) Microscopic Examination MICRON (Normal) Comments: Microscopic follows if indicated. Nitrite, Urine Negative (Normal) Urobilinogen,Semi-Qn 0.2 mg/dL (Normal) Range: 0.0-1.9 Bilirubin Negative (Normal) Occult Blood Negative (Normal) Ketones Negative (Normal) Glucose Negative (Normal) Protein Negative (Normal) WBC Esterase Negative (Normal) Appearance Clear (Normal) Urine-Color Yellow (Normal) pH 7.5 (Normal) Range: 5.0-7.5 Specific [place] 1.008 (Normal) Range: 1.005-1.030 :53 CHEST, PA [...] shah M.D.May 28, 2012 at 3:41:15 PM [id number] Signed GP/GP If you are the referring physician and would like to consult with theradiologist who provided this interpretation, please contact Simone Espino at [phone]. If this radiologist is unavailable, youwill be directed to another radiologist to assist. If you are a patient with a question regarding this report, pl easecontactyour referring physician directly. Professional Interpretation Provided By: [employer], Phone , These documents contain legally protected and confidential healt hinformation intended only for the use of the individual or entity namedabove. If you are not the intended recipient, you are hereby notifiedthatany disclosure, copying, distribution, or other use of [facility] documents isstrictly prohibited. If you have received this information in error,pleasenotify the sender immediately and arrange for the return or destructionofthese documents. Dictated on 2 1103 by Shyla Dumont MDranscribed on 05/28/12 1544 by ITS IMPORTSign by Jono Dmuont MD on 05/28/12 1545 Sign by: Jono [...] Marquez M.D.May 26, 2012 at 9:02:07 PM [phone] Signed AM/AM If you are the referring physician and would like to consult with theradiologist who provided this i nterpretation, please contact Joanne Marquez M.D. at . If this radiologist is unavailable, you will bedirected to another radiologist to assist. If you are a patient with a question regarding this report, pleasecontactyour referring physician directly. Professional Interpretation Provided By: [employer], Phone , These documents contain legally protected [...] nonsmoker Impaired Fasting Glucose : Eprescribed prescriptions (G53) Indication: Impaired Fasting Glucose Acute pain of left shoulder : Eprescribed prescriptions (G8553) Indication: Acute pain of left shoulder Current nonsmoker : Eprescribed prescriptions (G53) Indication: Current nonsmoker Impaired Fasting Glucose : Eprescribed prescriptions (G53) Indication: Impaired Fasting Glucose [facility] : Eprescribed prescriptions (53) Indication: [facility] Acute foot pain, right : Eprescribed prescriptions (G53) Indication: Acute foot pain, right Hypertension, benign : Eprescribed prescriptions (G53) Indication: Hypertension, benign Hemorrhoids, unspecified hemorrhoid type : Eprescribed prescriptions (G53) Indication: Hemorrhoids, unspecified hemorrhoid type Hypertension, benign : Blood Pressure: hypertension Indication: Hypertension, benign Hypertension, benign : Eprescribed prescriptions (G53) Indication: Hypertension, benign Lymphadenopathy : Eprescribed prescriptions (G53) Indication: Lymphadenopathy Acute sinusitis, unspecified : *URI Treatment Indication: Acute sinusitis, unspecified Acute sinusitis, unspecified : *URI Symptoms Indication: Acute sinusitis, unspecified Acute sinusitis, unspecified : *Antibiotic Usage Education - Female Indication: Acute sinusitis, unspecified Acute sinusitis, unspecified : Eprescribed prescriptions (G8552) Indication: Acute sinusitis, unspecified Multiple thyroid nodules : Follow up - Make appt after diagnostic tests Indication: Multiple thyroid nodules Lymphadenopathy, supraclavicular : Follow up in 10 days Indication: Lymphadenopathy, supraclavicular Impaired Fasting Glucose : Eprescribed prescriptions (G53) Indication: Impaired Fasting Glucose Renal cell carcinoma [...] Mixed hyperlipidemia Mixed hyperlipidemia : Eprescribed prescriptions (G53) Indication: Mixed hyperlipidemia Hiatal hernia : Reviewed [...] partial nephrectomy H/O partial nephrectomy : Reviewed [employer] Letter Indication: H/O partial nephrectomy Abdominal pain, [...] acute, generalized Planned Observations MICROALBUMIN: CREATININE RATIO (43700) AND (74316)Indication: Hypertension, benign On: :06 Request IMMUNOGLOBULIN E (IgE) (03939)Indication: Acute bronchitis On: :06 Request LIPID PANEL (49908)Indication: Mixed hyperlipidemia On: :40 Request ZWMUK-[id number] (70621)Indication: Fatty liver On: :40 Request HGB A1C (63853)Indication: Impaired Fasting Glucose On: 9-Urw-779593:40 Request METABOLIC PANEL, COMPREHENSIVE (70553)Indication: Impaired Fasting Glucose On: 7-Sto-593472:40 Request CBC (AUTO) (72387)Indication: Impaired Fasting Glucose On: :49 Request Vitamin D Hydroxy (22762)Indication: Vitamin D deficiency On: :48 Request METABOLIC PANEL, COMPREHENSIVE (35983)Indication: Mixed hyperlipidemia On: :48 Request LIPOPROTEIN, BLD, BY NMR (49336)Indication: Mixed hyperlipidemia On: :48 Request HRVRM-ZLPZTVVTHQS-UWZZU (67529)Indication: Acute foot pain, right On: 65-Bbc-032324:38 Request Vitamin D Hydroxy (55053)Indication: Vitamin D deficiency On: :50 Request OGITX-IQPYMADTDZI-GXHYT (02936)Indication: Fatty liver On: :50 Request METABOLIC PANEL, COMPREHENSIVE (49827)Indication: Impaired Fasting Glucose On: :49 Request MICROALBUMIN: CREATININE RATIO (77480) AND (93902)Indication: Impaired Fasting Glucose On: :49 Request HGB A1C (95918)Indication: Impaired Fasting Glucose On: :49 Request LIPID PANEL (71295)Indication: Mixed hyperlipidemia On: :49 Request LIPID PANEL (17558)Indication: Mixed hyperlipidemia On: : Request MICROALBUMIN: CREATININE RATIO (25858) AND (70210)Indication: Impaired Fasting Glucose On: : Request Hemoglobin Glyclated (HGB A1C) (88652)Indication: Impaired Fasting Glucose On: : Request Vitamin D Hydroxy (42175)Indication: Vitamin D deficiency On: : Request Vitamin D Hydroxy (73562)Indication: Vitamin D deficiency On: : Request CBC with auto diff (99578)Indication: Hypertension, benign On: :11 Request METABOLIC PANEL, COMPREHENSIVE (28839)Indication: Impaired Fasting Glucose On: :10 Request MICROALBUMIN: CREATININE RATIO (57294) AND (24192)Indication: Impaired Fasting Glucose On: :10 Request Hemoglobin Glyclated (HGB A1C) (28669)Indication: Impaired Fasting Glucose On: :10 Request LIPID PANEL (93052)Indication: Mixed hyperlipidemia On: : Request SWWIB-[id number] (55341)Indication: Fatty liver On: 94-Aev-836054:10 Request Vitamin D Hydroxy (18138)Indication: Vitamin D deficiency On: :15 Request Hemoglobin Glyclated (HGB A1C) (04834)Indication: Impaired Fasting Glucose On: :14 Request METABOLIC PANEL, COMPREHENSIVE (33713)Indication: Impaired Fasting Glucose On: :14 Request LIPID PANEL (88556)Indication: Mixed hyperlipidemia On: :14 Request Lipid Panel (79257)Indication: Elevated liver enzymes On: 94-Ezm-670699:47 Request HEPATIC FUNCTION PANEL (83476)Indication: Mixed hyperlipidemia On: 52-Tbg-362582:08 Request CALCIFEDIOL (88334)Indication: Unspecified Diagnosis On: 26-Znq-11820:53 Request Lipid Panel (49522)Indication: Unspecified Diagnosis On: 84-Ixt-32746:53 Request Lipid Panel (76842)Indication: SCREENING FOR HYPERLIPIDEMIA (Renamed from Encounter for screening for lipoid disorders) On: 27-Nab-450577:34 Request Comments: To be drawn Fasting Mar 2014 METABOLIC PANEL, COMPREHENSIVE (87915)Indication: Left knee pain On: 37-Okv-363701:39 Request CCP ANTIBODY (04171)Indication: Left knee pain On: :39 Request SED RATE ERYTHROCYTE (04241)Indication: Left knee pain On: :39 Request C-REACTIVE PROTEIN (43078)Indication: Left knee pain On: 27-Qdr-707814:39 Request TSH (22342)Indication: Left knee pain On: 23-Gbx-404801:39 Request RHEUMATOID FACTOR-QUANT (49421)Indication: Left knee pain On: 09-Shp-684706:39 Request Rapid Strep Test, Office (15760)Indication: ACUTE PHARYNGITIS (462.) On: 96-Zca-83434:20 Request C-REACT PROT HIGH SENS(hsCRP) (73112)Indication: Hypertension, benign On: 80-Ukx-926385:16 Request Sed Rate Erythrocyte (98971)Indication: Hypertension, benign On: 93-Rza-483181:16 Request CBC with manual diff (10260)Indication: Hypertension, benign On: 56-Sun-206007:16 Request TSH (08100)Indication: Chest pain On: :33 Request CBC WITH MANUAL DIFF (53145)Indication: Chest pain On: :33 Request MICROALBUMIN: CREATININE RATIO (31324) AND (09334)Indication: Hypertension, benign On: :47 Request URINALYSIS, W/ MICRO (06894)Indication: Hypertension, benign On: :47 Request Hemoglobin Glyclated (HGB A1C) (96263)Indication: Obesity, unspecified On: 30-Pvy-254638:47 Request LIPID PANEL (30252)Indication: Mixed hyperlipidemia On: 51-Nlw-925053:46 Request METABOLIC PANEL, COMPREHENSIVE (04598)Indication: Hypertension, benign On: 46-Nlz-173739:46 Request Planned Encounters Medical; [facility] Exam (Doctor) - On: 20-Aug-2018 13:30 [facility] Fast DO, Marcelle A Fast DO, Marcelle A Planned Procedures ELECTROCARDIOGRAM, COMPLETE (ECG) On: 26-Jul-2018 Intent (94218)By: Catalina Corona Comments: Normal Sinus Rhythm-HR 67 ORTHOSTATIC BLOOD PRESSURE On: 26-Jul-2018 Intent ASSESSMENT (95729)By: Catalina Corona Comments: Layin/68 HR 60Sittin/70 HH29Ehwsghny: 84/66 HR 90 Flu Vaccine (Quadrivalent) 74972Fw: On: 30-Apr-2018 Intent Fast DO, Marcelle A Fast DO, Marcelle A Comments: Lot #[id number]/30/19Site-L dltd, IMDose prefilled syringegiven by: Marta AVINA reviewed and ABN signed MAGNETIC RESONANCE IMAGING OF RIGHT On: 07-Mar-2018 Intent CALF WITHOUT THEN WITH CONTRAST (58022)By: Sara Henry Doppler Ultrasound OtherBy: Fast DO, [...] A ELECTROCARDIOGRAM, COMPLETE (ECG) On: 20-Jun-2017 Intent (19633)By: Fast DO, Marcelle A Fast DO, Marcelle A SCREENING DIGITAL TOMOSYNTHESIS OF On: 20-Jun-2017 Intent BREAST (10033)By: Fast DO, Marcelle A Fast DO, Marcelle A Flu Vaccine (Quadrivalent) 37418Nw: On: 20-Jun-2017 Intent Fast DO, Marcelle A Fast DO, Marcelle A Comments: lot: [id number]: 02/05/18ite/route: L blayne, IMamt: 0.5mlVIS and ABN signed when applicableChelsea, MEAL COOK Doppler Ultrasound OtherBy: Fast DO, On: 28-Apr-2017 [...] Comments: Lot:[id number]:01/05Dose:1mlRoute:IMSite:l armGiven By:BRIAN signed Aerosol Treatment (05032)By: Fast On: 23-Sep-2016 Intent DO, Marcelle A Fast DO, Marcelle A Comments: with albuterol Ultrasound - ThyroidBy: Fast DO, On: 29-Aug-2016 Intent Marcelle A Fast DO, Marcelle A Radiology - Shoulder - LeftBy: Fast On: 16-May-2016 Intent DO, Marcelle A Fast DO, Marcelle A Comments: with ac joint please DEXA SCAN AXIAL SKELETON (33526)By: On: 16-May-2016 Intent Fast DO, Marcelle A Fast DO, Marcelle A MAMMOGRAM, SCREENING, BOTH BREAST On: 16-May-2016 Intent (04953)By: Fast DO, Marcelle A Fast DO, Marcelle A ELECTROCARDIOGRAM, COMPLETE (ECG) On: 16-May-2016 Intent (56989)By: Fast DO, Marcelle A Fast DO, Comments: ekg showed normal sinus rhythym, normal axis, no acute st/t wave changes slight prolong qt Marcelle A Flu Vaccine (Quadrivalent) 75490Uu: On: 16-May-2016 Intent Fast DO, Marcelle A Fast DO, Marcelle A Comments: Lot #:[id number] date:02/17/17mount given:0.5mlRoute: IMSite given: left deltoidGiven by: [...] MAMMOGRAM, SCREENING, BOTH BREAST On: 15-May-2015 Intent (72360)By: Fast DO, Marcelle A Fast DO, Marcelle A Flu Vaccine (Quadrivalent) 56808Hm: On: 15-May-2015 Intent Fast DO, Marcelle A Fast DO, Marcelle A Comments: Lot:[id number]:01/03Dose:0.5mLRoute:IMSite:L DltdGiven By:AZEB Kennedy signed ADMINISTRATION OF INFLUENZA VIRUS On: 15-May-2015 Intent VACCINE (G0008)By: Fast DO, Marcelle A Fast DO, Marcelle A EKG (94095)By: Fast DO, Marcelle A On: 06-Feb-2015 Intent Fast DO, Marcelle A Comments: ekg showed normal sinus rhythym, normal axis, no acute st/t wave changes lvh no change Aerosol Treatment (67920)By: Christy On: 15-Jan-2015 Intent Jing MATHIS Comments: more a/e - still exp noise on left side only Radiology - Chest- PA and LatBy: On: 15-Jan-2015 Intent Jing Harrison DO Flu Vaccine (Quadrivalent) 40926Nb: On: 20-Jun-2014 Intent Vivian Washington CNP ADMINISTRATION [...] ADMNIN, 1 VAC, SNGL/COMBO On: 03-Jul-2013 Intent (63622)By: Maty Taveras LPN Comments: Lot #[id number]-L dltd, IMDose prefilled syringegiven by:SIMONE Luque and ABN signed FLU VAC, SPLIT, >3 YEARS, INTRAMUSC On: 03-Jul-2013 Intent (51985)By: Maty Taveras LPN Toradol Injection, 30 mg (J1885)By: On: 31-May-2013 Intent Vivian Washington CNP Radiology - Left KneeBy: Felix BACH, On: 31-May-2013 Intent Vivian Mosqueda Eprescribed prescriptions (G8553)By: On: 06-Mar-2013 Intent Sara Henry EKG (18963)By: Fast DO, Marcelle A On: 15-Oct-2012 Intent Fast DO, Marcelle A Comments: ekg showed normal sinus rhythym, normal axis, no acute st/t wave changes nsivcd no change Spirometry (12226)By: Fast DO, On: 15-Oct-2012 Intent Marcelle A Fast DO, Marcelle A Comments: good effort and curve normal Radiology - Chest- PA and LatBy: On: 15-Oct-2012 Intent Fast DO, Marcelle A Fast DO, Marcelle A Ultrasound - GallbladderBy: Fast DO, On: 09-Oct-2012 Intent Marcelle A Fast DO, Marcelle A Eprescribed prescriptions (G8553)By: On: 09-Oct-2012 Intent Melania Salcedo Aerosol Treatment ([id number])By: Felix On: 21-Sep-2012 Intent Vivian BACH Eprescribed prescriptions ([id number])By: On: 20-Jul-2012 Intent Melania Salcedo SPECIMEN HNDLNG/TRNSPRT, OFFC > LAB On: 11-Jul-2012 Intent ([id number])By: George Oscar LPN FLU VAC, SPLIT, >3 YEARS, INTRAMUSC On: 18-May-2012 Intent ([id number])By: Melania Salcedo Comments: [id number]:prefilledRoute:IMSite:L DltdGiven By:BRIAN signed CT - Abdomen & PelvisBy: Fast DO, On: 18-May-2012 Intent Marcelle A Fast DO, Marcelle A Echo CompleteBy: Fast DO, Marcelle A On: 18-May-2012 Intent Fast DO, Marcelle A Spirometry ([id number])By: Fast DO, On: 18-May-2012 Intent Marcelle A Fast DO, Marcelle A Comments: good effort and curve normal Eprescribed prescriptions ([id number])By: On: 18-May-2012 Intent Fast DO, Marcelle A Fast DO, Marcelle A EKG ([id number])By: Fast DO, Marcelle A On: 18-May-2012 Intent Fast DO, Marcelle A Comments: sinus with deep r waves left axis no acute st t cahnges Radiology - Chest- PA and LatBy: On: 18-May-2012 Intent Fast DO, Marcelle A Fast DO, Marcelle A TD Injection , IM ([id number])By: On: 18-May-2012 Intent Melania Salcedo Comments: received in 2002 IMMUNIZ ADMNIN, 1 VAC, SNGL/COMBO On: 18-May-2012 Intent ([id number])By: Melania Salcedo Planned Medications INJECTION, KETOROLAC TROMETHAMINE, [...] : Patient Instructions Indication: Impaired Fasting Glucose [facility] Wellness Physical : How to access health information online Indication: [facility] Wellness Physical [facility] Wellness Physical : How to access health information online - Detail Indication: [facility] Wellness Physical [facility] Wellness Physical : Patient Instructions Indication: [facility] [...] Instructions Indication: Hypertension, benign Encounters Review On: 27-Jul-2018 9:06 Encounter Reason: Follow up Meds - The patient feels well with minor complaints (would like to talk about her BP med andj possibly lowering the dosage. BP has been running good). Current medication use: experiencing side effects (not sure if gabapentin or blood pressure med. Not sleeping well, odd dreams, forgetful.).Encounter Diagnosis: Current nonsmoker, BMI 31.0-31.9,adult, Hypertension, benign, Low blood pressure reading [facility] Office Visit On: 26-Jul-2018 11:52 Encounter Reason: Dizziness - Note for Dizziness: Pts symptoms started about 3 weeks ago but yesterday noticed symptoms have gotten worse-felt like she was going to faint-stopped activity, did deep breathing exercises End: 26-Jul-2018 14:36 and it passed. Dizziness with movement. Was at [employer] working out and thought would stop and [...] BP med/ Will be seeing neurologist in [place] tomorrow), has decreased energy level (comes and [...] is sleeping poorly (just got back from [place], time zone). Patient has been compliant with [...] the cleanse and has been going to [employer] with a personal train End: 16-Oct-2017 10:58 [...] chronic medical issues: is working out with personal trainer once a week- and trying to [...] bandwagon- she was walkign regularly at the [facility] until last week -bp is ok- foot [...] medication. Was keeping track of BP at [facility] but the c End: 20-Sep-2015 17:39 [...] had thyroi us- di dnt see [facility] about enlarged lymph node- he thought maybe fatty didnt scan- alot of stress at home thinks wh feeling bad- not having as much left lower rib pain- supposed to have ct of abd she is getting appt with urology t [facility] tthis done se we talked they can [...] with oncologist- which didnt feel she got [facility] answeer- has had abd pain for 4 [...] do from here. Has seen Oncologist in [place], Dr. Jan Healy which he has referred her to [facility] which she is waiting to get in. margins were not clear and was renal cell carcino ma- darrick wanted to do watchful waiting- but went for second opinion in [place]-- got referred to Dr Iglesia Gibbons- she [...] for new patient female physical: [facility] last at Dr [...] Abdominal Pain,General (789.07) [facility] Payers Medical [facility] CenterDANNA TEMITOPE VALDOVINOS; a guarantor
--- OUTSIDE RECORDS SUMMARY | 2018-11-11 07:47 | XMS RPT_ITS | Continuity of Care Document ---
:1965 Author Organization [facility] Address [address] [facility] [address] [place] [address] Phone Care Team Providers Name Role Phone [...] [phone]) Comments: eat more fiber Status: Active Elevated liver enzymes (R74.8, 790.5) [...] per Parris, non cancer per [facility] per Dustin Status: Active Hair loss (L65.9, 704.00) Status: [...] Impaired Fasting Glucose (R73.01, 790.21) Status: Active Lymphadenopathy (R59.1, 785.6) Status: Active [...] Left nephrectomy for renal cell ca per Dustin but path reviewed by [facility] said it [...] Quantity: 1 {Packet(s)} Refills: 1 Ordered:23-Nov-2015 Fast DOTla AFast DO, Marcelle A Start : 23-Nov-2015 [...] Quantity: 90 {Tablet} Refills: 3 Ordered:16-Jun-2017 Andrew MATHIS Marcelle HUGHESrikki Marcelle A Start : 16-Jun-2017 Active Losartan Potassium 100 MG Oral Tablet 1 (one) Tablet qd for 0 days Quantity: 10 {Tablet} Refills: 0 Ordered:16-Jun-2017 Andrew MATHIS Marcelle HUGHESrikki Marcelle A Start : 16-Jun-2017 Active Nasacort Allergy 24HR 55 MCG/ACT Nasal Aerosol 1 spray each nostril daily (55 MCG/ACT) Active Nystatin 525215 UNIT/GM External Powder 1 (one) Powder qd [...] Quantity: 90 {Tablet} Refills: 3 Ordered:07-May-2018 Andrew MATHIS Marcelle [...] Quantity: 28 {Tablet} Refills: 0 Ordered:05-May-2017 Andrew MATHIS Marcelle HUGHESrikki MATHIS Marcelle A Start : 05-May-2017 End : 19-May-2017 Inactive BIAXIN XL PAC, 500MG (Oral Tablet Extended Release 24 Hour) 2 (two) Tablet ER 24HR daily for 10 days Quantity: 20 {Tablet_ER_24HR} Refills: 0 Ordered:16-Jul-2013 Melania Salcedo Start : 16-Jul-2013 End : 26-Jul-2013 Inactive CEFDINIR, 300MG (Oral Capsule) 1 (one) Capsule bid for 7 days Quantity: 14 {Capsule} Refills: 0 Ordered:18-May-2015 Felix BACH Vivian Mosqueda Start : 18-May-2015 End : 25-May-2015 Inactive Cheratussin AC 100-10 MG/5ML Oral Syrup 10 Milliliter q 6-8 hrs prn for 0 days Quantity: 150 {Milliliter} Refills: 0 Ordered:16-Oct-2017 Gastonkvng Sara Start : 21-Jul-2017 End : 16-Oct-2017 Inactive Comments:one hundred fifty CIPRO, 500MG (Oral Tablet) 1 (one) Tablet bid for 7 days Quantity: 14 {Tablet} Refills: 0 Ordered:21-Apr-2015 Felix BACH Vivian Mosqueda Start : 21-Apr-2015 End : 28-Apr-2015 Inactive CLARITIN, 10MG (Oral Tablet) 1 Tablet daily for 30 days Refills: 0 Ordered:20-Jul-2012 Fast DO, Marcelle AFast DO, Marcelle A Start : 20-Jul-2012 End : 19-Aug-2012 Inactive Contrave 8-90 MG Oral Tablet Extended Release 12 Hour 4 Tablet qd for 0 days Quantity: 120 {Tablet} Refills: 1 Ordered:16-Oct-2017 GastonSara calderon Start : 20-Jun-2017 End : 16-Oct-2017 Inactive Doxycycline Hyclate 100 MG Oral Capsule 1 (one) Capsule bid for 0 days Quantity: 20 {Capsule} Refills: 0 Ordered:16-Oct-2017 Fast DO, Marcelle AFast DO, Marcelle A Start : 21-Jul-2017 End : 16-Oct-2017 Inactive Estrogen-Methultestos 1 tab qd Inactive KETOCONAZOLE, 2% (External Shampoo) apply to scalp prn (2 %) Inactive KLARON, 10% (External Lotion) uad bid (10 %) Inactive MELOXICAM, 7.5MG (Oral Tablet) 1 Tablet daily for 14 days Quantity: 30 {Tablet} Refills: 0 Ordered:31-May-2013 Felix BACH Vivian Mosqueda Start : 31-May-2013 End : 14-Jun-2013 Inactive Comments:Ok to dispense 30 take x 14 days, take with food ORACEA, 40MG (Oral Capsule Delayed Release) 1 cap qd (40 MG) Inactive PREDNISONE, 10MG (Oral Tablet) 1 Tablet bid for 3 days Quantity: 6 {Tablet} Refills: 0 Ordered:16-Jul-2013 Hemantbarber BACHVivian Start : 16-Jul-2013 End : 19-Jul-2013 Inactive Comments:take wtih food PREDNISONE, 20MG (Oral Tablet) 1 (one) Tablet bid for 2 days for 2 days Quantity: 4 {Tablet} Refills: 0 Ordered:15-Jan-2015 Jing Harrison DO Start : 15-Jan-2015 End : 17-Jan-2015 Inactive PROMISEB (External Cream) uad bid Inactive TAMIFLU, 75MG (Oral Capsule) 1 Capsule Bid for 5 days Quantity: 10 {Capsule} Refills: 0 Ordered:21-Sep-2012 Felix BACHVivian Start : 21-Sep-2012 End : 26-Sep-2012 Inactive [...] : 06-Dec-2013 End : 21-Apr-2015 Discontinued Ergocalciferol 89095 UNIT Oral Capsule 1 (one) Capsule Capsule q week for 0 days Quantity: 12 {Capsule} Refills: 3 Ordered:08-Mar-2017 Melania Salcedo Start : 04-Nov-2014 End : 08-Mar-2017 Discontinued Ergocalciferol 96943 UNIT Oral Capsule 1 (one) Capsule Capsule [...] days Quantity: 30 {Tablet} Refills: 0 Ordered:21-Apr-2015 Jigna BARRON Laura Start : 09-Jan-2014 End : 21-Apr-2015 Discontinued LOSARTAN POTASSIUM-HCTZ, 100-25MG (Oral Tablet) 1 tab Tablet qd for 90 days Quantity: 90 {Tablet} Refills: 1 Ordered:21-Apr-2015 Jigna BARRON Laura Start : 09-Jan-2014 End : 21-Apr-2015 [...] days Quantity: 180 {Capsule_ER} Refills: 3 Ordered:21-Apr-2015 Jigna BARRON Laura Start : 07-Sep-2012 End : 21-Apr-2015 Discontinued PROVENTIL HFA, 108 (90 Base)MCG/ACT (Inhalation Aerosol Solution) 2 (two) Aerosol Soln q 6 hr prn for 0 days Quantity: 1 {Inhaler} Refills: 0 Ordered:21-Apr-2015 Slarb CLIN NURSE SPECScotta Start : 19-Jan-2015 End : 21-Apr-2015 Discontinued WELCHOL, 625MG (Oral Tablet) 3 (three) Tablet bid for 90 days Quantity: 540 {Tablet} Refills: 3 Ordered:23-Sep-2014 Fast DO, Marcelle AFast DO, Marcelle A Start : 23-Sep-2014 End : 23-Sep-2014 Discontinued ZITHROMAX Z-MEREDITH, 250MG (Oral Tablet) tad Tablet Tablet qd for 0 days Quantity: 1 {Package} Refills: 0 Ordered:21-Apr-2015 Slarb CLIN NURSE SPEC, Laura Start : 15-Jan-2015 End : 21-Apr-2015 [...] Status: Resolved as of 06-Feb-2015 Vaccine for vhqzcptewj-wqyhqpx-gsiwtebca with poliomyelitis (Z23, V06.3) Status: Inactive as [...] Patient Result: Comments: See Note; NOTES: [facility] Pulmonary Services/Neurology [address] [place] [address] MR#: [id number] Acct: [id number] Name: AMY VALDOVINOS Rep #: [id number] : 0 1965 52 From: Adebayo Canchola MD Referring Dr: Blayne Welsh DPM Status: REG CLI Ordering Dr: Date: Location: [facility] Sex: F C NCS and/or EMG [...] Dictated: 03/28/18 1021 Date Transcribed: 03/28/18 102 Fan Blade Aligner: NF Signed 10-Mar-2018 Lower Ext No Joint W/WO Cont Result: Comments: See Note; NOTES: [facility] Imaging Services [address] [place] [address] Lower Ext No Joint W/WO Cont MR#: [id number] Acct: [id number] Name: AMY VALDOVINOS Rep #: [id number] : 1965 F 52 From: Ge Moffett MD PCP: Marcelle Daley DO Status: REG CLI Study: Lower Ext No Joint W/WO Cont Date of Exam: 03/10/18 Exam# [id number] Ordering Dr: Marcelle Daley DO STUD Y: [...] Service support , CC: Marcelle Daley DO Fan Blade Aligner: Signed 06-Mar-2018 Venous Duplex Lower Extremity Result: Comments: See Note; NOTES: [facility] Cardiovascular Services [address] [place] [address] Venous Duplex US, Unilateral 03/06/18 1435 MR#: [id number] Acct: [id number] Name: AMY CHOI Rep #: [id number] : 1965 52 From: Jared Hines MD [...] Dictated: 03/06/18 1435 Date Transcribed: 03/06/18 1623 Fan Blade Aligner: Signed 19-Feb-2018 Abdomen/Pelvis WITH Contrast Result: Comments: See Note; NOTES: [facility] Imaging Services [address] [place] [address] Abdomen/Pelvis WITH Contrast MR#: [id number] Acct: [id number] Name: AMY VALDOVINOS Rep #: [id number] : 1965 F 52 From: Jono Dumont MD PCP: Marcelle Daley DO Status: REG CLI Study: Abdomen/Pelvis WITH Contrast Date of Exam: 02/19/18 Exam# [id number] Ordering Dr: Marcelle Daley TUDY: CT ABDOMEN [...] Jono Dumont MD at 10:35 EDT Tel [phone], Service support , CC: Marcelle Daley DO Fan Blade Aligner: Signed 17-Oct-2017 Thyroid Result: Comments: See Note; NOTES: [facility] Imaging Services [address] [place] [address] Thyroid MR#: [id number] Acct: [id number] Name: AMY VALDOVINOS Rep #: [id number] : [birth year] F 52 From: Shine Sawyer MD PCP: Marcelle Daley DO Status: REG CLI Study: Thyroid Date of Exam: 10/17/17 Exam# [id number] Ordering Dr: Marcelle Daley DO STUDY: THYROID [...] Service support , CC: Marcelle Daley DO Fan Blade Aligner: Signed 01-Aug-2017 SCREENING MAMM (CAD), BILAT Result: Comments: See Note; NOTES: [facility] Imaging Services [address] [place] [address] SCREENING MAMM (CAD), BILAT MR#: [id number] Acct: [id number] Name: AMY VALDOVINOS Rep #: [id number] : 1965 F 52 From: Jono Dumont MD PCP: Marcelle Daley DO Status: [facility] CLI Study: SCREENING MAMM (CAD), BILAT Date of Exam: 08/01/17 Exam# [id number] Ordering Dr: Marcelle Daley DO [facility] MOGRAPHY - BILATERAL SCREENING REASON FOR EXAM: [...] delay biopsy of a clinically suspicious abnormality. [id number] Electronically Signed: Alma Dumont MD at 15:11 EST Tel [phone], Service support , CC: Marcelle Daley DO Fan Blade Aligner: Signed 01-May-2017 Venous Duplex Lower Extremity Result: Comments: See Note; NOTES: [facility] Cardiovascular Services [address] [place] [address] Venous Duplex US, Unilateral 04/28/17 1357 MR#: [id number] Acct: [id number] Name: AYM CHOI Rep #: [id number] : 1965 51 From: Jared Hines MD [...] Dictated: 04/28/17 1357 Date Transcribed: 05/01/17 0855 Fan Blade Aligner: Signed 28-Apr-2017 Foot min 3 Views Result: Comments: See Note; NOTES: [facility] Imaging Services [address] [place] [address] Foot min 3 Views MR#: [id number] Acct: [id number] Name: AMY VALDOVINOS Rep #: [id number] D OB: 1965 F 51 From: Amarjit Britton DO PCP: Marcelle Daley DO Status: REG CLI Study: Foot min 3 Views Date of Exam: 04/28/17 Exam# [id number] Ordering Dr: Marcelle Daley DO STUDY: X-RAY [...] Amarjit Britton DO at 20:42 EDT Tel [phone], Service support , CC: Marcelle Daley DO Fan Blade Aligner: Signed 28-Apr-2017 Knee 4 or More Views Result: Comments: See Note; NOTES: [facility] Imaging Services [address] [place] [address] Knee 4 or More Views MR#: [id number] Acct: [id number] Name: AMY VALDOVINOS Rep #: [id number] : 1965 F 51 From: Amarjit Britton DO PCP: Marcelle Daley DO Status: REG CLI Study: Knee 4 or More Views Date of Exam: 04/28/17 Exam# [id number] Ordering Dr: Marcelle Daley DO STUDY: X-RAY [...] Amarjit Britton DO at 20:31 EDT Tel [phone], Service support , CC: Marcelle Daley DO Fan Blade Aligner: Signed 23-Mar-2017 Liver Result: Comments: See Note; NOTES: [facility] Imaging Services [address] [place], [place] [address] Liver MR#: [id number] Acct: [id number] Name: AMY VALDOVINOS Rep #: [id number] : [birth year] F 51 From: Jono Dumont MD PCP: Marcelle Daley DO Status: REG CLI Study: Liver Date of Exam: 03/23/17 Exam# [id number] Ordering Dr: Marcelle Daley DO STUDY: ABDOMINAL [...] Jono Dumont MD at 8:50 EDT Tel [phone], Service support , CC: Marcelle Daley DO Fan Blade Aligner: Signed 31-Aug-2016 Thyroid Result: Comments: See Note; NOTES: [facility] Imaging Services [address] [place] [address] Verdana 4d Thyroid MR#: [id number] Acct: [id number] Name: AMY VALDOVINOS Rep #: [id number] : 1965 F 51 From: Amarjit Britton DO PCP: Marcelle Daley DO Status: REG CLI Study: Thyroid Date of Exam: 08/31/16 Exam# [id number] Ordering Dr: Marcelle Daley DO STUDY: THYROID [...] Amarjit Britton DO at 23:35 EST Tel [phone], Service support [phone], CC: Marcelle Daley DO Fan Blade Aligner: Signed 09-Jun-2016 Bilat Scrn Digital AND CAD Result: Comments: See Note; NOTES: [facility] Imaging Services [address] [place] [address] Verdana 4d Bilat Scrn Digital AND CAD MR#: [id number] Acct: [id number] Name: BONIFACIOAMY Barber BLAS Rep #: [id number] : 1965 F 51 From: Jono Dumont MD PCP: Marcelle Daley DO Status: REG CLI Study: Bilat Scrn Digital AND CAD Date of Exam: 06/09/16 Exam# [id number] Ordering Dr: Tl Daley DO MAMMOGRAPHY - [...] delay biopsy of a clinically suspicious abnormality. [id number] Electronically Signed: Jono Dumont MD at 15:05 EDT Tel [phone], Servi ce support [phone], CC: Marcelle Daley DO Fan Blade Aligner: Signed 09-Jun-2016 Dexa Bone Density Study (HP) Result: Comments: See Note; NOTES: [facility] Imaging Services [address] [place] [address] Verdana 4d Dexa Bone Density Study (HP) MR#: [id number] Acct: [id number] Name: AMY VALDOVINOS Rep #: [id number] : 1965 F 51 From: Jono Dumont MD PCP: Marcelle Daley DO Status: REG CLI Study: Dexa Bone Density Study (HP) Date of Exam: 06/09/16 Exam# [id number] Ordering Dr: Marcelle Daley DO STUDY: DUAL [...] Jono Dumont MD at 8:21 EDT Tel [phone], Service support [phone], CC: Marcelle Daley DO Fan Blade Aligner: Signed 17-May-2016 Shoulder min 2 Views Result: Comments: See Note; NOTES: [facility] Imaging Services [address] [place] [address] Verdana 4d Shoulder min 2 Views MR#: [id number] Acct: [id number] Name: AMY VALDOVINOS p #: [id number] : 1965 F 50 From: Jono Dumont MD PCP: Marcelle Daley DO Status: REG CLI Study: Shoulder min 2 Views Date of Exam: 05/17/16 Exam# [id number] Ordering Dr: Marcelle Daley DO STUD Y: [...] Dumont MD 06/05/27 at 12:52 EDT Tel [phone], Service support [phone], CC: Marcelle Daley DO Fan Blade Aligner: Signed 17-Mar-2016 Foot min 3 Views Result: Comments: See Note; NOTES: [facility] Imaging Services [address] [place] [address] Verdana 4d Foot min 3 Views MR#: [id number] Acct: [id number] Name: AMY VALDOVINOS Rep #: [id number] : 1965 F 50 From: Malcom Emmanuel MD PCP: Marcelle Daley DO Status: REG CLI Study: Foot min 3 Views Date of Exam: 03/17/16 Exam# [id number] Ordering Dr: Marcelle Daley DO STUDY: X-RAY [...] Service support , CC: Marcelle Daley DO Fan Blade Aligner: Signed 10-Nov-2015 Chest without Contrast Result: Comments: See Note; NOTES: [facility] Imaging Services [address] [place] [address] Verdana 4d Chest without Contrast MR#: [id number] Acct: [id number] Name: AMY GUILLERMO Rep #: [id number] : 1965 F 50 From: Ismael Mejia DO PCP: Marcelle Daley DO Status: REG CLI Study: Chest without Contrast Date of Exam: 11/10/15 Exam# [id number] Ordering Dr: Mabel Daley ra, DO ADDENDUM by Ismale Mejia on 11/23/15 at 0952 ADDENDUM ADDENDUM: Review of the soft ti ssues of the supraclavicular regions demonstrate no evidence of lymphadenopathy or other soft tissue abnormality. Electronically Signed: Ismael Mejia DO at 9:52 EDT Tel [phone], Serv ice support [phone], 11/23/15 0952 Date cc: Marcelle Daley DO [...] Ismael Mejia DO at 21:20 EDT Tel [phone], Servic e support [phone], CC: Marcelle Daley DO Fan Blade Aligner: Signed 10-Nov-2015 Chest without Contrast Result: Comments: See Note; NOTES: [facility] Imaging Services [address] [facility] [place] [address] Verdana 4d Chest without Contrast MR#: [id number] Acct: [id number] Name: AMY GUILLERMO Rep #: [id number] : 1965 F 50 From: Ismael Mejia DO PCP: Marcelle Daley DO Status: REG CLI Study: Chest without Contrast Date of Exam: 11/10/15 Exam# [id number] Ordering Dr: Mabel Daley ra, DO STUDY: [...] CT Chest examinatio n. Electronically Signed: Ismael BookeronDO at 21:20 EDT Tel [phone], Service support [phone], CC: Marcelle Daley DO Fan Blade Aligner: Signed 10-Nov-2015 Thyroid Result: Comments: See Note; NOTES: [facility] Imaging Services [address] [place] [address] Verdana 4d Thyroid MR#: [id number] Acct: [id number] Name: AMY VALDOVINOS Rep #: [id number] : 1965 F 50 From: Jono Dumont MD PCP: Marcelle Daley DO Status: REG CLI Study: Thyroid Date of Exam: 11/10/15 Exam# [id number] Ordering Dr: Marcelle Daley DO STUDY: THYROI [...] Jono swann MD at 10:10 EDT Tel [phone], Service support [phone], CC: Marcelle Daley DO Fan Blade Aligner: Signed 08-Sep-2015 EKG (17108) Comments: ekg showed normal sinus rhythym, left axis, no acute st/t wave changes lv strain Result: [MEASUREMENTS ANALYSIS] Date of Test: 09/08/2015 12:10:48; Heart Rate: 55; MI Interval: 164; QRS: 114; QT Interval: 462; Corrected QT Interval (QTc): 454; P Wave [place]: 34; QRS Wave [place]: -29; T Wave Axi s: -16; Blood Pressure: 148/98 [ECG DIAGNOSTIC STATEMENTS] Date of Test: 09/08/2015 12:10:48; Summary: Sinus Bradycardia -Left axis. Voltage criteria for LVH (S(V1)+R(V6) exceeds 3.50 mV). -Nonspeci fic ST depression -Seen with left ventricular hypertrophy (strain) or digitalis effect. ABNORMAL 26-May-2015 Bilat Scrn Digital AND CAD Result: Comments: See Note; NOTES: [facility] Imaging Services [address] [place] [address] Breast Imaging Report MR#: [id number] Acct: [id number] Name: AMY VALDOVINOS Rep #: [id number] : 1965 F 50 From: Jono Dumont MD PCP: Marcelle Daley DO Status: REG CLI Study: Bilat Scrn Digital AND CAD Date of Exam: 05/26/15 Exam# [id number] Ordering Dr: Marcelle Daley DO MAMMOGRAPHY - [...] Jono Dumont MD at 15:40 EDT Tel [phone], Service support [phone], CC: Marcelle Daley DO Fan Blade Aligner: Signed 18-May-2015 Chest PA and Lateral Result: Comments: See Note; NOTES: [facility] Imaging Services [address] [place] [address] Radiology Report MR#: [id number] Acct: [id number] Name: AMY VALDOVINOS Rep #: [id number] : 1965 F 49 From: Jono Dumont MD PCP: Marcelle Daley DO Status: REG CLI Study: Chest PA and Lateral Date of Exam: 05/18/15 Exam# [id number] Ordering Dr: Vivian Washington STUDY: X-RA Y [...] Jono Dumont MD at 14:19 EDT Tel [phone], Service support [phone], RAD/Chest PA and Lateral IMPRESSION: No acute abnormality is seen. Electronically Signed: Jono Dumont MD at 14:19 EDT Tel [phone], Service support [phone], CC: Vivian Washington; Marcelle Daley DO Fan Blade Aligner: Signed 15-Jan-2015 Chest PA and Lateral Result: Comments: See Note; NOTES: [facility] Imaging Services [address] [place] [address] Radiology Report MR#: [id number] Acct: [id number] Name: AMY VALDOVINOS Rep #: [id number] : 1965 F 49 From: Shine Sawyer MD PCP: Marcelle Daley DO Status: REG CLI Study: Chest PA and Lateral Date of Exam: 01/15/15 Exam# [id number] Ordering Dr: Jing Harrison DO STUDY : [...] MD at 23:41 EDT , Service support [phone], RAD/Chest PA and Lateral IMPRESSION: Normal x-ray examination of the chest. Electronically Signed: Shine Sawyer MD at 23:41 E DT , Service support [phone], CC: Marcelle Daley DO; Jing Harrison DO Fan Blade Aligner: Signed 15-Jan-2015 Inhaler Demo (31050) Result: Comments: I instructed pt to use inhaler, then she redemonstrated the technique back to me. 15-Jan-2015 Spirometry (14414) Comments: obsrtuction present Result: 29-Oct-2014 Abdomen WITH and W/O Contrast Result: Comments: See Note; NOTES: [facility] Imaging Services [address] [place] [address] MRI Report MR#: [id number] Acct: [id number] Name: AMY VALDOVINOS Rep #: [id number] : 1965 F 49 From: Heavenly Rojas MD PCP: Marcelel Daley DO Status: REG CLI Study: Abdomen WITH and W/O Contrast Date of Exam: 10/29/14 Exam# [id number] Ordering Dr: Stanton Hollingsworth MD STUDY: M [...] at 1 1:15 EDT , Service support [phone], CC: Marcelle Daley DO; Stanton Hollingsworth MD Fan Blade Aligner: Signed 23-Jun-2014 Esophagus Only Result: Comments: See Note; NOTES: [facility] Imaging Services [address] [place] [address] Radiology Report MR#: [id number] Acct: [id number] Name: AMY VALDOVINOS Rep #: [id number] : 1965 F 49 From: Jono Dumont MD PCP: Status: REG CLI Study: Esophagus Only Date of Exam: 06/23/14 Exam# [id number] Ordering Dr: Jing Harrison DO STUDY: X-RAY [...] Jono Dumont MD at 9:21 EST Tel [phone], Service support , RAD/Esophagus Only IMPRESSION: Small sliding hiatal hernia with no evidence of gastroesophageal reflux. Electronically Signed: Jono Dumont MD at 9:21 EST Tel [phone], Service support [phone], CC: Jing Harrison DO Fan Blade Aligner: Signed 23-Jun-2014 Thyroid Result: Comments: See Note; NOTES: [facility] Imaging Services [address] [place] [address] Ultrasound Report MR#: [id number] Acct: [id number] Name: AMY VALDOVINOS Rep #: [id number] : 1965 F 49 From: Jono Dumont MD PCP: Status: REG CLI Study: Thyroid Date of Exam: 06/23/14 Exam# [id number] Ordering Dr: Jing Harrison DO STUDY: THYROID [...] of the thyroid. Correlation with a [facility] thyroid uptake and scan is recommended. Electronically Signed: Jono Dumont MD at 15:38 EST Tel [phone], Service support [phone], C C: Jing Harrison DO Fan Blade Aligner: Signed 30-Nov-2013 Abdomen/Pelvis WITH Contrast Result: Comments: See Note; NOTES: [facility] Imaging Services [address] [place] [address] CAT Scan Report MR#: [id number] Acct: [id number] Name: AMY VALDOVINOS Rep #: [id number] : 1965 F 48 From: Jesse Carrington MD PCP: Marcelle Daley DO Status: REG CLI Study: Abdomen/Pelvis WITH Contrast Date of Exam: 11/30/13 Exam# [id number] Ordering Dr: Vivian Washington STUDY: CT ABDOMEN [...] at 8:45 EDT , Service support [phone], CC: Vivian Washington; Marcelle Daley DO; Dr. Iglesia Lee M.D.; Stanton Hollingsworth MD Fan Blade Aligner: Signed 26-Nov-2013 Kidney and Bladder Result: Comments: See Note; NOTES: [facility] Imaging Services [address] [place] [address] Ultrasound Report MR#: [id number] Acct: [id number] Name: AMY VALDOVINOS Rep #: [id number] : 1965 F 48 From: Jono Dumont MD PCP: Marcelle Daley DO Status: REG CLI Study: Kidney and Bladder Date of Exam: 11/26/13 Exam# [id number] Ordering Dr: Vivian Washington STUDY: RENAL ULTRASOUND [...] at 12:56 EDT Tel , Service support [phone], CC: Vivian Washington; Marcelle Daley DO Fan Blade Aligner: Signed 31-May-2013 Knee 4 or More Views Result: Comments: See Note; NOTES: [facility] Imaging Services [address] [place] [address] Radiology Report MR#: [id number] Acct: [id number] Name: AMY VALDOVINOS Rep #: [id number] : 1965 F 48 From: Jono Dumont MD PCP: Status: REG CLI Study: Knee 4 or More Views Date of Exam: 05/31/13 Exam# [id number] Ordering Dr: Vivian Washington STUDY: X-RAY - [...] May 31, 2013 at 1:16:23 PM EDT [phone] Electronically Signed GP/GP If you are the referring physician and would like to consult with the radiologist w ho provided this interpretation, please contact Jono Dumont M.D. at [phone]. If this radiologist is unavailable, you will be directed to another radiologist to assist. If you are a veronica ent with a question regarding this report, please contact your referring physician directly. Professional Interpretation Provided By: [employer], Phone , These docum ents contain legally [...] destruction of these documents. 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 Status: Active Smoking Status Name Dates Details Never smoker Vital Signs Date Test Result Details 36-Sut-096716:02 Temperature 98 f Comments: Method: Temporal Pulse [...] kg/m2 Body Surface Area Calculated 2.25 m2 43-Rsk-931345:00 Temperature 98.4 f Comments: Method: Oral Pulse [...] kg/m2 Body Surface Area Calculated 2.17 m2 1-Feb-55987:50 Temperature 101.2 f Comments: Method: Oral Pulse [...] Comments: send copy to Dr. Evelio Kaur [phone]; A courtesy copy of this report has been sent [phone].PATIENT NOT FASTINGPERFORMED BY: [facility] [id number] ([id number]) RA Latex Turbid. <10.0 {IU/mL} (Normal) Range: 0.0-13.9 :39 IMMUNOFIXATION, SERUM (39861) Comments: send copy to Dr. 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 90-Rwd-177604:39 HIV-1 ANTIBODY (11996) Comments: send copy to Dr. Evelio Kaur [phone]; A courtesy copy of this report has been sent [phone].PATIENT NOT FASTINGPERFORMED BY: AhonyaNovant Health Ballantyne Medical Center [id number] HIV Screen 4th Generation wRfx Non Reactive (Normal) :39 HEPATITIS C ANTIBODY (86824) Comments: send copy to Dr. Evelio Kaur [phone]; A courtesy copy of this report has been sent [phone].PATIENT NOT FASTINGPERFORMED BY: Xplornet CommunicationsBeaumont Hospital6370 [facility] [id number] Hep C Virus Ab <0.1 {s/co_ratio} (Normal) Range: 0.0-0.9 Comments: Negative: < 0.8 Indeterminate: 0.8 - 0.9 Positive: > 0.9 . The [facility] recommends that a positive HCV antibody result be followed up with a HCV Nucleic Acid Amplification test (637947). 93-Nbl-988990:39 FOLIC ACID SERUM (17597) Comments: send copy to Dr. Evelio Kaur [phone]; A courtesy copy of this report has been sent [phone].PATIENT NOT FASTINGPERFORMED BY: Xplornet CommunicationsBeaumont Hospital6370 [facility] [id number] Folate (Folic Acid), Serum 14.3 ng/mL (Normal) Comments: A serum folate concentration of less than 3.1 ng/mL isconsidered to represent clinical deficiency. 41-Uau-537093:39 ANTIEXTARACT NUCLEAR AG 6338 Comments: send copy to Dr. Evelio Kaur [phone]; A courtesy copy of this report has been sent [phone].PATIENT NOT FASTINGPERFORMED BY: Xplornet CommunicationsBeaumont Hospital6370 [facility] [id number] (64621) Up Antibodies <0.2 {AI} (Normal) Range: 0.0-0.9 PROFESSIONAL ENGINEER Antibodies <0.2 {AI} (Normal) Range: 0.0-0.9 13-Xkt-260501:39 LOLITA (ANTINUCLEAR ANTIBODY) Comments: send copy to Dr. Evelio Kaur [phone]; A courtesy copy of this report has been sent [phone].PATIENT NOT FASTINGPERFORMED BY: Xplornet CommunicationsBeaumont Hospital6370 [facility] [id number] (67625) LOLITA Direct Negative (Normal) 27-Fzi-942499:05 URINE KENROY CULTURE-IDENTIFICATN Comments: PATIENT NOT FASTINGPERFORMED BY: Xplornet CommunicationsTimothy Ville 0501470 [facility] [id number] Information: SRC:EMILY (47117) Result 1 MUG (Normal) Comments: Mixed urogenital flora1,000 Colonies/mL Urine Culture,Comprehensive Final report (Normal) 84-Enm-159765:56 Urinalysis, Office (42645) UA - LEUKOCYTE ESTERASE Trace (Normal) UA - NITRITE Negative (Normal) URINE UROBILINGN JUAN TIMED Normal mg/dL (Normal) UA - PROTEIN Trace mg/dL (Normal) UA - PH 5 (Abnormal) UA - BLOOD Negative (Normal) UA - SPECIFIC GRAVITY 1.030 (Abnormal) UA - KETONES Negative mg/dL (Normal) UA - BILIRUBIN Small (Normal) UA - GLUCOSE Negative (Normal) 09-Ubs-260723:28 CBC, PLATELETS & AUT DIFF Comments: PATIENT WAS FASTINGPERFORMED BY: [facility] Hqsxbx1837 [facility] [id number] (47795) Immature Grans (Abs) 0.0 {x10E3/uL} (Normal) Range: [...] B-12 (CYANOCOBALAMIN) Comments: PATIENT WAS FASTINGPERFORMED BY: LabTreatful Hjprho2398 [facility]in [place] [id number] (79689) Vitamin B12 413 pg/mL (Normal) Range: 232-1245 :28 Vitamin D Hydroxy (45211) Comments: PATIENT WAS FASTINGPERFORMED BY: LabSt. [facility] Opkzxi4251 [address] [facility]bl[facility] [place] [id number] Vitamin D, 25-Hydroxy 52.6 ng/mL (Normal) Range: 30.0-100.0 Comments: Vitamin D deficiency has been defined by the [place] [facility] and an Endocrine Society practice guideline as alevel of serum 25-OH vitamin D less than 20 ng/mL (1,2).The Endocrine Society went on to further define vitamin Dinsufficiency as a level between 21 and 29 ng/mL (2).1. IOM ([place] of Medicine). 2010. Dietary reference intakes for calcium and D. [place]: The National Academies Press.2. Myla MF, Javier STUART, Panfilo MANN, et al. Evaluation, treatment, and prevention of vitamin D deficiency: an Endocrine Society clinical practice guideline. JCEM. 2010; 96(7):1911-30. :28 LIPID PANEL (11436) Comments: PATIENT WAS FASTINGPERFORMED BY: LabCo Dkazkq5270 [facility] Hospitalin [place] [id number] LDL/HDL Ratio 1.3 {ratio} (Normal) Range: 0.0-3.2 Comments: LDL/HDL Ratio Men Women 1/2 Avg.Risk 1.0 1.5 Av g.Risk 3.6 3.2 2X Avg.Risk 6.2 5.0 3X Avg.Risk 8.0 6.1 LDL Cholesterol Calc 51 mg/dL (Normal) Range: 0-99 VLDL Cholesterol Remington 11 mg/dL (Normal) Range: 5-40 HDL Cholesterol 38 mg/dL (Abnormal) Triglycerides 55 mg/dL (Normal) Range: 0-149 Cholesterol, Total 100 mg/dL (Normal) Range: 100-199 51-Fif-214037:38 HgA1C , Office (59201) HgA1C , Office 6.1 % (Normal) Range: 4.6 - 7.1 53-Aaq-030733:28 HGB A1C (30430) Comments: PATIENT WAS FASTINGPERFORMED BY: Metabar6370 [facility] [id number] Hemoglobin A1c 5.6 % (Normal) Range: 4.8-5.6 Comments: . Prediabetes: 5.7 - 6.4 Diabetes: >6.4 Glycemic control for adults with diabetes: <7.0 :28 ENPZB-OBWBRUFLYCA-YIJQJ (08828) Comments: PATIENT WAS FASTINGPERFORMED BY: Codacy70 [facility] [id number] AFP, Serum, Tumor Marker 3.6 ng/mL (Normal) Range: 0.0-8.3 Comments: Ozzie ECLIA methodology :28 MICROALBUMIN: CREATININE RATIO Comments: PATIENT WAS FASTINGPERFORMED BY: Codacy70 [facility] [id number] (23822) AND (17368) Alb/Creat Ratio 4.1 {mg/g_creat} (Normal) Range: 0.0-30.0 Albumin, Urine 5.8 ug/mL (Normal) Creatinine, Urine 139.9 mg/dL (Normal) 28-Ple-806665:28 METABOLIC PANEL, COMPREHENSIVE Comments: PATIENT WAS FASTINGPERFORMED BY: Boostable [facility] [id number]; review at 05/07 appt (07576) ALT (SGPT) 19 [iU]/L (Normal) Range: 0-32 [...] mg/dL (Normal) Range: 65-99 23-Jan-20188:21 LIPID PANEL (76162) Comments: PATIENT WAS FASTINGPERFORMED BY: Codacy70 [facility]Critical [facility] [id number] LDL/HDL Ratio 1.6 {ratio} (Normal) Range: 0.0-3.2 Comments: LDL/HDL Ratio Men Women 1/2 Avg.Risk 1.0 1.5 Av g.Risk 3.6 3.2 2X Avg.Risk 6.2 5.0 3X Avg.Risk 8.0 6.1 LDL Cholesterol Calc 75 mg/dL (Normal) Range: 0-99 VLDL Cholesterol Remington 19 mg/dL (Normal) Range: 5-40 HDL Cholesterol 46 mg/dL (Normal) Triglycerides 93 mg/dL (Normal) Range: 0-149 Cholesterol, Total 140 mg/dL (Normal) Range: 100-199 23-Jan-20188:21 CBC W/AUTO DIFF WBC (82093) Comments: PATIENT WAS FASTINGPERFORMED BY: Metabar6370 [facility] [id number]; review on 01/31 Immature Grans (Abs) 0.0 [...] PANEL, COMPREHENSIVE Comments: PATIENT WAS FASTINGPERFORMED BY: LabCoHudson County Meadowview HospitalQtiqlh0478 [facility] [id number] (89693) ALT (SGPT) 18 [iU]/L (Normal) Range: 0-32 [...] - 30 days 16 - 16 - 31 days - 1 year 15 - 25 15 - 25 2 years - 5 years 17 - 26 17 - 26 6 y ears - 12 years 19 - 19 - >12 years 20 - 20 - 29 Chloride 103 mmol/L (Normal) Range: 96-106 Potassium 4.6 mmol/L (Normal) Range: 3.5-5.2 Sodium 143 mmol/L (Normal) Range: 134-144 BUN/Creatinine Ratio 18 (Normal) Range: 9-23 eGFR If Africn Am 103 mL/min/1.73 (Normal) eGFR If NonAfricn Am 89 mL/min/1.73 (Normal) Creatinine 0.77 mg/dL (Normal) Range: 0.57-1.00 BUN 14 mg/dL (Normal) Range: 6-24 Glucose 98 mg/dL (Normal) Range: 65-99 47-Cpf-161487:22 TSH (82004) Comments: PATIENT NOT FASTINGPERFORMED BY: Codacy70 [facility] [id number] TSH 1.150 {uIU/mL} (Normal) Range: 0.450-4.500 19-Buv-808844:22 SED RATE ERYTHROCYTE (62321) Comments: PATIENT NOT FASTINGPERFORMED BY: GridiumRay County Memorial HospitalShoplimentNovant Health Ballantyne Medical Center [id number] Sedimentation Rate-Westergren 8 mm/h (Normal) Range: 0-40 43-Tcz-255341:22 C-REACTIVE PROTEIN (26860) Comments: PATIENT NOT FASTINGPERFORMED BY: Boostable [facility] [id number] C-Reactive Protein, Quant 2.5 mg/L (Normal) Range: 0.0-4.9 92-Evc-901007:22 LOLITA (ANTINUCLEAR ANTIBODY) Comments: PATIENT NOT FASTINGPERFORMED BY: Balakam Xsqjut5876 [address] [employer]esica Pharmaceuticalsbl[employer] [place] [id number] (23704) LOLITA Direct Negative (Normal) 35-Mds-830059:22 VITAMIN B-12 (CYANOCOBALAMIN) Comments: PATIENT NOT FASTINGPERFORMED BY: Balakam Zrvdvs8983 [address] [employer] Pharmaceuticalsbl[place] [id number] (36432) Vitamin B12 340 pg/mL (Normal) Range: 232-1245 94-Trp-748158:22 IRON (84413) Comments: PATIENT NOT FASTINGPERFORMED BY: Balakam Psivnq9058 [place] U[facility]licationbl[place] [id number] Iron, Serum 57 ug/dL (Normal) Range: 27-159 70-Lmf-905940:22 FERRITIN (12263) Comments: PATIENT NOT FASTINGPERFORMED BY: Balakam Gwtzth3870 [place] Upplicationin [place] [id number] Ferritin, Serum 220 ng/mL (Abnormal) Range: 15-150 09-Ncp-096311:27 Albumin/Creatinine Comments: PATIENT WAS FASTINGPERFORMED BY: Balakam Wueatz4727 [address] UpplicationNovant Health Ballantyne Medical Center [id number] BY: [address] [id number] Ratio,Urine Alb/Creat Ratio 5.5 {mg/g_creat} (Normal) Range: 0.0-30.0 Albumin, Urine 9.6 ug/mL (Normal) Creatinine, Urine 176.1 mg/dL (Normal) 00-Utr-795296:27 Vitamin D Hydroxy Comments: PATIENT WAS FASTINGPERFORMED BY: Balakam X BODY [place] Upplicationbl[place] [id number] BY: [address] [id number] (19516) Vitamin D, 25-Hydroxy 44.1 ng/mL (Normal) Range: 30.0-100.0 Comments: Vitamin D deficiency has been defined by the [place] ofMedicine and an Endocrine Society practice guideline as alevel of serum 25-OH vitamin D less than 20 ng/mL (1,2).The Endocrine Society went on to further define vitamin Dinsufficiency as a level between 21 and 29 ng/mL (2).1. IOM ([place] of Medicine). 2010. Dietary reference intakes for calcium and D. [place]: The National Academies Press.2. Myla MF, Javier STUART, Panfilo MANN, et al. Evaluation, treatment, and prevention of vitamin D deficiency: an Endocrine Society clinical practice guideline. JCEM. 2010; 96(7):1911-30. 66-Qqj-902713:27 HGB A1C (39072) Comments: PATIENT WAS FASTINGPERFORMED BY: DearLocal [facility] [id number] BY: Balakam[address] [id number] Hemoglobin A1c 5.7 % (Abnormal) Range: 4.8-5.6 Comments: . Pre-diabetes: 5.7 - 6.4 Diabetes: >6.4 Glycemic control for adults with diabetes: <7.0 41-Eov-995803:27 ATFCU-FMOWBENYVKL-CHQIB (79286) Comments: PATIENT WAS FASTINGPERFORMED BY: Codacy70 [facility] [id number] BY: Balakam[address] [id number] AFP, Serum, Tumor Marker 4.0 ng/mL (Normal) Range: 0.0-8.3 Comments: Ozzie ECLIA methodology 21-Dhx-477963:27 METABOLIC PANEL, Comments: PATIENT WAS FASTINGPERFORMED BY: Codacy70 [address] [facility] [id number] BY: Balakam[address] [id number] COMPREHENSIVE (45355) ALT (SGPT) 21 [iU]/L (Normal) Range: 0-32 [...] Glucose, Serum 84 mg/dL (Normal) Range: 65-99 31-Csq-463829:27 CBC with auto diff Comments: PATIENT WAS FASTINGPERFORMED BY: CB [facility] Meddcj3875 [facility] [id number] BY: BN [facility] Lsowdncunc9747 [facility] [id number] (12989) Immature Grans (Abs) 0.0 {x10E3/uL} (Normal) Range: [...] 3.77-5.28 WBC 7.7 {x10E3/uL} (Normal) Range: 3.4-10.8 18-Dwp-576351:27 LIPID PANEL (10420) Comments: PATIENT WAS FASTINGPERFORMED BY: TUKZ Undergarments Erjhux0092 [facility] [id number] BY: LabCo[address] [id number] LDL/HDL Ratio 1.5 {ratio_units} (Normal) Range: 0.0-3.2 Comments: LDL/HDL Ratio Men Women 1/2 Avg.Risk 1.0 1.5 Av g.Risk 3.6 3.2 2X Avg.Risk 6.2 5.0 3X Avg.Risk 8.0 6.1 LDL Cholesterol Calc 69 mg/dL (Normal) Range: 0-99 VLDL Cholesterol Remington 17 mg/dL (Normal) Range: 5-40 HDL Cholesterol 46 mg/dL (Normal) Triglycerides 85 mg/dL (Normal) Range: 0-149 Cholesterol, Total 132 mg/dL (Normal) Range: 100-199 35-Iin-395339:27 IGA/IGD/IGG/IGM-EACH (61799) Comments: PATIENT WAS FASTINGPERFORMED BY: StreamStarCoHudson County Meadowview HospitalXlhgjn7885 [facility] [id number] BY: Lab[address] [id number] Immunoglobulin E, Total 18 {IU/mL} (Normal) Range: 0-100 Immunoglobulin M, Qn, Serum 43 mg/dL (Normal) Range: 26-217 Immunoglobulin A, Qn, Serum 332 mg/dL (Normal) Range: 87-352 Immunoglobulin G, Qn, Serum 848 mg/dL (Normal) Range: 700-1600 5-Qar-938716:23 METABOLIC PANEL, COMPREHENSIVE Comments: PATIENT NOT FASTINGPERFORMED BY: BalakamHudson County Meadowview HospitalKhgrej4230 [facility] [id number] (57163) ALT (SGPT) 16 [iU]/L (Normal) Range: 0-32 [...] mg/dL (Normal) Range: 65-99 :10 RUBEOLA IgG (64682) Comments: PATIENT NOT FASTINGPERFORMED BY: [facility]6370 [facility] [id number] Rubeola Ab, IgG 44.9 AU/mL (Normal) Comments: Negative <25.0 Equivocal 25.0 - 29.9 Positive >29.9 Presence of antibodies to Rubeola is presumptive evidence of immunity except when acute infection is suspected. :10 RUBELLA IgG (43790) Comments: PATIENT NOT FASTINGPERFORMED BY: [address] [id number] Rubella Antibodies, IgG 17.40 {index} (Normal) Comments: Non-immune <0.90 Equivocal 0.90 - 0.99 Immune >0.99 :10 MUMPS IgG (41580) Comments: PATIENT NOT FASTINGPERFORMED BY: [place] 8901770 [facility] [id number] Mumps Abs, IgG >300.0 AU/mL (Normal) Comments: Negative <9.0 Equivocal 9.0 - 10.9 Positive >10.9 A positive result genera lly indicates past exposure to Mumps virus or previous vaccination. :23 HEPATITIS C ANTIBODY (08415) Comments: PATIENT NOT FASTINGPERFORMED BY: [place] 8901770 [facility] [id number] Hep C Virus Ab 0.1 {s/co_ratio} (Normal) Range: 0.0-0.9 Comments: Negative: < 0.8 Indeterminate: 0.8 - 0.9 Positive: > 0.9 . The CDC recommends that a positive HCV antibody result be followed up with a HCV Nucleic Acid Amplification test (567417). :07 AFP, Tumor Marker Comments: Is Patient ? [facility] (refer to report for specific site)refer to report for address and phone number AFP TUMOR 2253 3.9 ng/mL (Normal) Range: 0.0-8.3 Comments: Ozzie ECLIA methodologyPerformed at: [place] [address] [place], [place] [id number] Director: Harjinder Houston PhD, Phone: [phone] 26-Eln-584222:07 Comprehensive Metabolic Profil Comments: [facility] Yunrvxfmop0236 [address] [place], [place], [id number] GAP 6 (Normal) Range: 5-15 CO2 27.0 [...] 7-18 GLU 80 mg/dL (Normal) Range: 70-110 62-Noj-793642:07 Hemoglobin A1c Comments: [facility] Qzgqnrqguk6368 [address] [place], [place], [id number] HGB A1C 5.9 % (Normal) Range: 4.2-6.3 06-Slc-228559:07 Lipid Profile Comments: [facility] Cbinlobmby3243 [address] [place], [id number] VLDL 18 mg/dL (Normal) Range: 5-40 LDL [...] 200-240 mg/dL Borderline >240 mg/dL High Risk 08-Blh-295286:07 Thyroid Stim Hormone (TSH) Comments: [facility] Jgmzkuadqq4873 [address] [place], [address] TSH 1.11 {uIU/mL} (Normal) Range: 0.358-3.74 71-Ivu-353657:07 Vitamin B12 401 pg/mL (Normal) Comments: [facility] Gbbukjhqya2857 [address] [place], [id number] Range: 211-911 30-Jmm-330805:07 Vitamin D,25 Hydroxy Comments: [facility] Qmaotaulnn5700 [address] [place], [address] Vitamin D 25-OH 37.7 ng/mL (Normal) Comments: Vitamin D 25(OH) Status Range Deficiency <20 ng/mL (50nmol/L) Insuffciency 20 - 30 ng/mL (50 - 75 nmol/L) Sufficiency 30 - 100 ng/mL (75 - 250 nmol/L) Toxicity >100 ng/mL (>250 nmol/L) 72-Jdd-594320:54 TSH (83073) Comments: PATIENT WAS FASTINGPERFORMED BY: LabCoHudson County Meadowview HospitalDnkqpl7450 [facility] [id number] TSH 1.440 {uIU/mL} (Normal) Range: 0.450-4.500 :54 VITAMIN B-12 (CYANOCOBALAMIN) Comments: PATIENT WAS FASTINGPERFORMED BY: BalakamDarryl V[place] 6916570 [facility] [id number] (15916) Vitamin B12 273 pg/mL (Normal) Range: 211-946 :47 Vitamin D Hydroxy Comments: PATIENT WAS FASTINGPERFORMED BY: BalakamNancy [place] 084527 [facility] [id number] BY: Xplornet CommunicationsBeaumont Hospital6370 [facility] [id number] (19570) Vitamin D, 25-Hydroxy 29.6 ng/mL (Abnormal) Range: 30.0-100.0 Comments: Vitamin D deficiency has been defined by the [place] ofMedicine and an Endocrine Society practice guideline as alevel of serum 25-OH vitamin D less than 20 ng/mL (1,2).The Endocrine Society went on to further define vitamin Dinsufficiency as a level between 21 and 29 ng/mL (2).1. IOM ([place] of Medicine). 2010. Dietary reference intakes for calcium and D. [place]: The National Academies Press.2. Myla MF, Javier NC, Panfilo MANN, et al. Evaluation, treatment, and prevention of vitamin D deficiency: an Endocrine Society clinical practice guideline. JCEM. 2010; 96(7):1911-30. :47 METABOLIC PANEL, Comments: PATIENT WAS FASTINGPERFORMED BY: Xplornet CommunicationsAnita Ville 308677 [facility] [id number] BY: Xplornet CommunicationsBeaumont Hospital6370 [facility] [id number] COMPREHENSIVE (03862) ALT (SGPT) 21 [iU]/L (Normal) Range: 0-32 [...] Glucose, Serum 87 mg/dL (Normal) Range: 65-99 6-Etq-466404:47 LIPOPROTEIN, BLD, BY NMR Comments: PATIENT WAS FASTINGPERFORMED BY: BN [facility] [address] [id number] BY: CB [facility] [address] [id number] Information: [id number], 563527 (47920) LP-IR Score 69 (Abnormal) Comments: INSULIN RESISTANCE MARKER <--Insulin Sensitive Insulin Resistant--> Percentile in Reference PopulationInsulin Resistance ScoreLP-IR Score Low 25th 50th 75th High <27 27 45 63 >63LP-IR Score is inaccurate if patient is non-fasting. .The LP-IR score is a laboratory developed i [facility] that has beenassociated with insulin [...] were developed and their performance characteristicsdetermined by LipRentabilities. These assays have not been cleared by [...] 1600 - 2000 Very High > 2000 2-Jeu-531687:47 MICROALBUMIN: CREATININE Comments: PATIENT WAS FASTINGPERFORMED BY: BN [facility] [address] [id number] BY: LabCoDarryl Ville 6916570 [facility] [id number] RATIO (35695) AND (96223) Microalb/Creat Ratio 10.3 {mg/g_creat} (Normal) Range: 0.0-30.0 Microalbumin, Urine 16.3 ug/mL (Normal) Creatinine, Urine 157.7 mg/dL (Normal) 2-Qkx-684151:47 HGB A1C (28029) Comments: PATIENT WAS FASTINGPERFORMED BY: LabCoNancy Ville 084527 [facility] [id number] BY: LabCoHudson County Meadowview HospitalGqvbsv6424 [facility] [id number] Hemoglobin A1c 6.1 % (Abnormal) Range: 4.8-5.6 Comments: . Pre-diabetes: 5.7 - 6.4 Diabetes: >6.4 Glycemic control for adults with diabetes: <7.0 :4 ASPIRATION (SLIDES ONLY) See Note (Normal) Comments: [facility] Ycwrwwpjqk7021 [place], [address] 5 Comments: Patient: AMY VALDOVINOS : 1965 (51/F) Acct Num: [id number] Phys: Richar Fairchild MD Unit Num: [id number] Loc: LABSPEC Specimen: [id number] Received: 10/07/16 - 1206 Spec Type: ASPIRATION TISSUES TISSUES: COMMENT The specimen is paucicellular and contains rare benign follicular cells and focal chronic inflammatory cells. Clinical correlation is suggested. CYTOLOGY GROSS Received are eight smears labeled with the patient's name and designated per therequisition as FNA left thyroid. Submitted for staining. 10/07/16 TC:5 CPT: 87697 CYTOLOGY STUDY Slides are reviewed. DIAGNOSIS CYTOLOGY Fine needle aspiration, left thyroid nodule (smears): Negative, consistent with colloid nodule. AM:cecil 10/10/16 HEADER OPERATION: Ult rasound-guided fine needle aspiration, left thyroid PRE-OP DIAGNOSIS: Multinodular goiter E04.2 TISSUE SUBMITTED: Fine needle aspiration, left thyroid (8 slides) Signed Enio [facility] 10/10/16 <signature on file> 4-Aic-070378:56 XYGQX-ZQKFUHULIET-PMEPE (62574) Comments: PATIENT WAS FASTINGPERFORMED BY: Balakam[address] [id number] BY: LabCoDizmo Xtgfvh9356 Vaca RoadDublin [place] [id number] AFP, Serum, Tumor Marker 3.2 ng/mL (Normal) Range: 0.0-8.3 Comments: Ozzie ECLIA methodology :56 VITAMIN B-12 (CYANOCOBALAMIN) Comments: PATIENT WAS FASTINGPERFORMED BY: LabTreatfulrp [address] [id number] BY: CAPS Entrepriselin6370 [address]aca RoadDublin [place] [id number] (44121) Vitamin B12 302 pg/mL (Normal) Range: 211-946 7-Obh-441947:56 Vitamin D Hydroxy Comments: PATIENT WAS FASTINGPERFORMED BY: Balakamrp [address] [id number] BY: FRUCT LabIntelleGrow FinanceDmsjvm3595 Vaca RoadDublin [place] [id number] (15373) Vitamin D, 25-Hydroxy 25.1 ng/mL (Abnormal) Range: 30.0-100.0 Comments: Vitamin D deficiency has been defined by the [place] ofMedicine and an Endocrine Society practice guideline as alevel of serum 25-OH vitamin D less than 20 ng/mL (1,2).The Endocrine Society went on to further define vitamin Dinsufficiency as a level between 21 and 29 ng/mL (2).1. IOM ([place] of Medicine). 2010. Dietary reference intakes for calcium and D. [place]: The National Academies Press.2. Myla MF, Javier STUART, Panfilo MANN, et al. Evaluation, treatment, and prevention of vitamin D deficiency: an Endocrine Society clinical practice guideline. JCEM. 2010; 96(7):1911-30. 2-Qlr-136699:56 CBC W/AUTO DIFF WBC Comments: PATIENT WAS FASTINGPERFORMED BY: Balakam[address] [id number] BY: [facility] HospitalTreatfulDarryl Ville 6916570 [facility] [id number] (69434) Immature Grans (Abs) 0.0 {x10E3/uL} (Normal) Range: [...] 3.77-5.28 WBC 9.9 {x10E3/uL} (Normal) Range: 3.4-10.8 5-Swq-887430:56 METABOLIC PANEL, Comments: PATIENT WAS FASTINGPERFORMED BY: Balakam[address] [id number] BY: [facility] HospitalTreatfulHudson County Meadowview HospitalRyivkg6319 [facility] [id number] COMPREHENSIVE (45521) ALT (SGPT) 18 [iU]/L (Normal) Range: 0-32 [...] Glucose, Serum 89 mg/dL (Normal) Range: 65-99 2-Ydy-688189:56 LIPOPROTEIN, BLD, BY NMR Comments: PATIENT WAS FASTINGPERFORMED BY: BN [facility] [address] [id number] BY: CB [facility] [address] [id number] (77445) LP-IR Score 66 (Abnormal) Comments: INSULIN RESISTANCE MARKER <--Insulin Sensitive Insulin Resistant--> Percentile in Reference PopulationInsulin Resistance ScoreLP-IR Score Low 25th 50th 75th High <27 27 45 63 >63LP-IR Score is inaccurate if patient is non-fasting. .The LP-IR score is a laboratory developed i ndex that has beenassociated with insulin resistance and [...] 1600 - 2000 Very High > 2000 1-Vsz-166449:10 HgA1C , Office (42998) HgA1C , Office 5.8 % (Normal) Range: 4.6 - 7.1 1-Adt-529957:10 Blood Glucose , Office (05824) Blood Glucose , Office 80 (Normal) 17-Ers-953353:18 Magnesium (76674) Comments: PATIENT NOT FASTINGPERFORMED BY: Balakam Wlmflk1123 [facility] [id number] Magnesium, Serum 2.3 mg/dL (Normal) Range: 1.6-2.3 :35 LKSWA-VBELOBGEDXR-UHPXZ (23838) Comments: PATIENT WAS FASTINGPERFORMED BY: Balakam Wqdevb6469 [facility] [id number] AFP, Serum, Tumor Marker 3.0 ng/mL (Normal) Range: 0.0-8.3 Comments: Ozzie ECLIA methodology :35 CBC W/AUTO DIFF WBC Comments: PATIENT WAS FASTINGPERFORMED BY: 525j.com.cn6370 [facility] [id number] Information: [id number] (47584) Immature Grans (Abs) 0.0 {x10E3/uL} (Normal) Range: [...] PANEL, COMPREHENSIVE Comments: PATIENT WAS FASTINGPERFORMED BY: LabCoHudson County Meadowview HospitalFqamqm6964 [facility] [id number] (28104) ALT (SGPT) 14 [iU]/L (Normal) Range: 0-32 [...] Glucose, Serum 83 mg/dL (Normal) Range: 65-99 15-Hpl-069035:10 CBC W/AUTO DIFF WBC Comments: PATIENT WAS FASTINGPERFORMED BY: BalakamHudson County Meadowview HospitalDhctla3213 [facility] [id number] Information: [id number] (34669) Immature Grans (Abs) 0.0 {x10E3/uL} (Normal) Range: [...] 3.77-5.28 WBC 7.1 {x10E3/uL} (Normal) Range: 3.4-10.8 53-Alz-366271:10 METABOLIC PANEL, COMPREHENSIVE Comments: PATIENT WAS FASTINGPERFORMED BY: BalakamHudson County Meadowview HospitalTcoiva5084 [facility] [id number] (05064) ALT (SGPT) 14 [iU]/L (Normal) Range: 0-32 [...] Glucose, Serum 79 mg/dL (Normal) Range: 65-99 30-Rfs-714053:10 TSH (28675) Comments: PATIENT WAS FASTINGPERFORMED BY: [facility] Tyuzbf0437 [facility] [id number] TSH 0.891 {uIU/mL} (Normal) Range: 0.450-4.500 84-Uqg-768777:10 LIPID PANEL (72907) Comments: PATIENT WAS FASTINGPERFORMED BY: [facility] Rpwknw2839 [facility] [id number] LDL/HDL Ratio 2.0 {ratio_units} Range: 0.0-3.2 (Normal) [...] ONLY) See Note (Normal) Comments: [facility] Grqxkwnyfg[address] [place], [address] :67 Comments: Patient: AMY VALDOVINOS : 1965 (50/F) Acct Num: [id number] Phys: Devorah DÍAZ,Richar Unit Num: [id number] Loc: LABSPEC Specimen: [id number] Received: 12/15/15 - [...] Signed Alexis Levi 12/16/15 <signature on file> 21-Dbz-967758:19 TSH (16811) Comments: PATIENT NOT FASTINGPERFORMED BY: [facility]6370 [facility] [id number] TSH 1.250 {uIU/mL} (Normal) Range: 0.450-4.500 :19 T4, FREE (THYROXINE) Comments: PATIENT NOT FASTINGPERFORMED BY: [place] [id number] [facility] [id number] Information: [id number] (71527) T4,Free(Direct) 1.12 ng/dL (Normal) Range: 0.82-1.77 :19 T3, FREE (TRIDOTHYRONINE) (86364) Comments: PATIENT NOT FASTINGPERFORMED BY: [facility]6370 [facility] [id number] Triiodothyronine,Free,Serum 3.3 pg/mL (Normal) Range: 2.0-4.4 81-Dxl-662055:15 SED RATE ERYTHROCYTE (69316) Comments: PATIENT NOT FASTINGPERFORMED BY: [facility]6370 [facility] [id number] Sedimentation Rate-Westergren 6 mm/h (Normal) Range: 0-40 37-Qup-230790:15 C-REACTIVE PROTEIN (23091) Comments: PATIENT NOT FASTINGPERFORMED BY: [facility]6370 [facility] [id number] C-Reactive Protein, Quant 3.9 mg/L (Normal) Range: 0.0-4.9 63-Nha-685261:15 METABOLIC PANEL, COMPREHENSIVE Comments: PATIENT NOT FASTINGPERFORMED BY: [place] [id number] [facility] [id number] (27915) ALT (SGPT) 35 [iU]/L (Abnormal) Range: 0-32 [...] Glucose, Serum 76 mg/dL (Normal) Range: 65-99 72-Aqa-601067:15 EBV Panel (44875) Comments: PATIENT NOT FASTINGPERFORMED BY: [facility] Fpuhuq5257 [facility] [id number] Interpretation: SPRCS (Normal) Comments: EBV Interpretation Chart [...] <36.0 Equivocal 36.0 - 43.9 Positive >43.9 54-Zay-604726:15 CBC, PLATELETS & MANUAL Comments: PATIENT NOT FASTINGPERFORMED BY: CHUY [facility] Bkocav6863 [facility] [id number] Information: [id number] DIFF (57294) Immature Grans (Abs) 0.0 {x10E3/uL} (Normal) Range: [...] 3.77-5.28 WBC 8.8 {x10E3/uL} (Normal) Range: 3.4-10.8 67-Vum-822704:00 CBC with auto diff Comments: PERFORMED BY: [facility]6370 [facility] [id number] Information: NURSE DRAW (96864) Immature Grans (Abs) 0.0 {x10E3/uL} (Normal) Range: [...] 3.77-5.28 WBC 8.6 {x10E3/uL} (Normal) Range: 3.4-10.8 35-Ojx-656541:00 METABOLIC PANEL, COMPREHENSIVE Comments: PERFORMED BY: [facility]6370 [facility] [id number] (55138) ALT (SGPT) 19 [iU]/L (Normal) Range: 0-32 [...] Glucose, Serum 93 mg/dL (Normal) Range: 65-99 22-Bhk-180935:00 GNCAG-WGICUFQSMLX-HXCXN (10477) Comments: PERFORMED BY: AquacueHudson County Meadowview HospitalXpropj8977 [facility] [id number] AFP, Serum, Tumor Marker 3.2 ng/mL (Normal) Range: 0.0-8.3 Comments: Ozzie ECLIA methodology 33-Bjx-469441:28 HgA1C , Office (26659) HgA1C , Office 5.9 % (Normal) Range: 4.6 - 7.1 0-Pds-905027:22 URINE KENROY CULTURE-JUAN COL Comments: PATIENT NOT FASTINGPERFORMED BY: Aquacue[address] [id number] Information: SRC:UR [id number] COUNT (85176) Result 1 NG36 (Normal) Comments: No growth in 36 - 48 hours. Urine Culture,Comprehensive Final report (Normal) 0-Coz-802939:36 Urinalysis, Office (08636) UA - LEUKOCYTE ESTERASE Small (Normal) UA - NITRITE Negative (Normal) URINE UROBILINGN JUAN TIMED Normal mg/dL (Normal) UA - PROTEIN Negative mg/dL (Normal) UA - PH 6.5 (Normal) UA - BLOOD Negative (Normal) UA - SPECIFIC GRAVITY 1.005 (Normal) UA - KETONES Negative mg/dL (Normal) UA - BILIRUBIN Negative (Normal) UA - GLUCOSE Negative (Normal) 70-Jrx-452052:04 CBC W/AUTO DIFF WBC Comments: PATIENT WAS FASTINGPERFORMED BY: LabCoH[facility] County Meadowview HospitalNqikbk8775 [facility] [id number] Information: [id number] (70906) Immature Grans (Abs) 0.0 {x10E3/uL} (Normal) Range: [...] PANEL, COMPREHENSIVE Comments: PATIENT WAS FASTINGPERFORMED BY: Balakam Gwondo4054 [facility] [id number] (98255) ALT (SGPT) 20 [iU]/L (Normal) Range: 0-32 [...] Glucose, Serum 74 mg/dL (Normal) Range: 65-99 76-Aas-992826:04 LIPID PANEL (05589) Comments: PATIENT WAS FASTINGPERFORMED BY: BalakamArtesia General HospitalZlpnii1892 [facility] [id number]; [address] LDL/HDL Ratio 2.1 {ratio_units} Range: [...] ng/mL (Normal) Comments: PATIENT WAS FASTINGPERFORMED BY: [employer] Jjfpqu1145 [facility] [id number] 59:38 Marker Range: 0.0-8.3 Comments: Ozzie ECLIA methodology 52-Yow-52469:38 CBC With Differential/Platelet Comments: PATIENT WAS FASTINGPERFORMED BY: Metabar6370 [facility] [id number] Information: [id number] Immature Grans (Abs) 0.0 {x10E3/uL} (Normal) Range: [...] (14) Comments: PATIENT WAS FASTINGPERFORMED BY: [facility] Rueeuu1825 [facility] [id number] ALT (SGPT) 13 [iU]/L (Normal) Range: 0-32 [...] % (Abnormal) Comments: PATIENT WAS FASTINGPERFORMED BY: Balakam X BODY [facility] [id number]; f/u on 02/06 38 Range: 4.8-5.6 Comments: . Increased risk for diabetes: 5.7 - 6.4 Diabetes: >6.4 Glycemic control for adults with diabetes: <7.0 :38 Lipid Panel With LDL/HDL Comments: PATIENT WAS FASTINGPERFORMED BY: Moobia [facility] [id number] Ratio LDL/HDL Ratio 3.1 {ratio_units} (Normal) Range: [...] Randm Ur Comments: PATIENT WAS FASTINGPERFORMED BY: Balakam X BODY [facility] [id number] Microalb/Creat Ratio 19.0 {mg/g_creat} Range: 0.0-30.0 (Normal) Microalbumin, Urine 23.5 ug/mL (Abnormal) Range: 0.0-17.0 Creatinine, Urine 124.0 mg/dL (Normal) Range: 15.0-278.0 05-Feb-2015 Vitamin D, 25-Hydroxy 32.7 ng/mL (Normal) Comments: PATIENT WAS FASTINGPERFORMED BY: Balakam X BODY [facility] [id number] 9:38 Range: 30.0-100.0 Comments: Vitamin D deficiency has been defined by the [place] ofMedicine and an Endocrine Society practice guideline as alevel of serum 25-OH vitamin D less than 20 ng/mL (1,2).The Endocrine Society went on to further define vitamin Dinsufficiency as a level between 21 and 29 ng/mL (2).1. IOM ([place] of Medicine). 2010. Dietary reference intakes for calcium and D. [place]: The National Academies Press.2. Myla MF, Javier STUART, Panfilo MANN, et al. Evaluation, treatment, and prevention of vitamin D deficiency: an Endocrine Society clinical practice guideline. JCEM. 2010; 96(7):1911-30. 01-Gtb-698274:49 Comprehensive Metabolic Profil Comments: STAT CREATININE FOR MRITest performed at:[facility] [address] [place] [address] ; Afua GAP 3 (Abnormal) Range: 5-15 [...] 7-18 GLU 82 mg/dL (Normal) Range: 70-110 22-Fhe-396881:49 Hemoglobin A1c Comments: Test performed at:[facility] Kiysazbfxf[address] [place] [address] HGB A1C 5.7 % (Normal) Range: 4.2-6.3 08-Xsc-091011:49 Lipid Profile Comments: STAT CREATININE FOR MRITest performed at:[facility] Kjklrihmbn5674 [facility] [address] VLDL 25 mg/dL (Normal) Range: [...] 200-240 mg/dL Borderline >240 mg/dL High Risk 31-Tux-444197:49 Vitamin D,25 Hydroxy Comments: Test performed at:[facility] Jmadmctcdf4053 [facility] [place] [address] Vitamin D 25-OH 76.3 ng/mL (Normal) Comments: Vitamin D 25(OH) Status Range Deficiency <20 ng/mL (50nmol/L) Insuffciency 20 - 30 ng/mL (50 - 75 nmol/L) Sufficiency 30 - 100 ng/mL (75 - 250 nmol/L) Toxicity >100 ng/mL (>250 nmol/L) 1-Rug-181635:15 Culture, Urine Comments: Test performed at:[facility] [address]jv[address]wba05[address] [place] [address] CUUR See Note (Normal) Comments: Urine CultureORGANISM 1: Mixed Gram Positive OrganismsColony Count 11,000-25,000MIX CONTAM Mixed Contaminants. Submit new specimen if indicated. 7-Fcs-906037:23 Lipid Panel (37010) Comments: PATIENT WAS FASTINGPERFORMED BY: BalakamHudson County Meadowview HospitalXpmxll2954 [facility] [id number] LDL/HDL Ratio 2.9 {ratio_units} (Normal) Range: 0.0-3.2 [...] Cholesterol, Total 164 mg/dL (Normal) Range: 100-199 2-Afl-767644:23 Metabolic Panel, Comments: PATIENT WAS FASTINGPERFORMED BY: BalakamHudson County Meadowview HospitalTafrwl2799 [facility] [id number] Information: [id number] Comprehensive (87388) ALT (SGPT) 24 [iU]/L (Normal) Range: 0-32 [...] Glucose, Serum 94 mg/dL (Normal) Range: 65-99 66-Yts-443272:49 CALCIFEDIOL (67169) Comments: PATIENT NOT FASTINGPERFORMED BY: LabCoHudson County Meadowview HospitalPzgkpn8535 [facility] [id number] Vitamin D, 25-Hydroxy 18.9 ng/mL (Abnormal) Range: 30.0-100.0 Comments: Vitamin D deficiency has been defined by the [place] of[facility]cine and an Endocrine Society practice guideline as alevel of serum 25-OH vitamin D less than 20 ng/mL (1,2).The Endocrine Society went on to further define vitamin Dinsufficiency as a level between 21 and 29 ng/mL (2).1. IOM ([place] of Medicine). 2010. Dietary reference intakes for calcium and D. [place]: The National Academies Press.2. Myla MF, Javier STUART, Panfilo MANN, et al. Evaluation, treatment, and prevention of vitamin D deficiency: an Endocrine Society clinical practice guideline. JCEM. 2010; 96(7):1911-30. 36-Sjl-823529:52 Hemoglobin A1c Comments: Test performed at:[facility] Sbrumahjku7615 [facility] [address] HGB A1C 6.4 % (Abnormal) Range: 4.2-6.3 66-Ahn-302396:52 Lipid Profile Comments: Test performed at:[facility] Kmspcabaxi0774 [facility] [place], [place] [address] VLDL 35 mg/dL (Normal) Range: 5-40 LDL [...] 200-240 mg/dL Borderline >240 mg/dL High Risk 39-Dlr-841828:52 Liver Profile Comments: Test performed at:[facility] [address] [place] [address] [id number] D BILI 0.10 mg/dL (Normal) Range: 0.00-0.30 T BILI 0.50 mg/dL (Normal) Range: 0.00-4.00 ALT 43 U/L (Normal) Range: 12-78 ALK P 92 U/L (Normal) Range: 50-136 AST 18 U/L (Normal) Range: 15-37 GLOB 3.5 g/dL (Normal) Range: 2.7-4.2 ALB 4.0 g/dL (Normal) Range: 3.4-5.0 T PROT 7.5 g/dL (Normal) Range: 6.4-8.2 15-Gts-472042:50 Serum Creatinine AND GFR Comments: Has pt arrived? YTest performed at:[facility] [address] [place] [address] EST GFR - AA 86 mL/min (Normal) EST GFR 71 mL/min (Normal) CREAT,SERUM 0.9 mg/dL (Normal) Range: 0.6-1.0 50-Xoh-181423:38 Hepatic Function Panel Comments: PATIENT WAS FASTINGPERFORMED BY: LabCoHudson County Meadowview HospitalJkosyg7774 [facility] [id number] Information: [id number] (7) ALT (SGPT) 36 [iU]/L (Abnormal) Range: 0-32 AST (SGOT) 23 [iU]/L (Normal) Range: 0-40 Alkaline Phosphatase, S 107 [iU]/L (Normal) Range: 39-117 Bilirubin, Direct 0.13 mg/dL (Normal) Range: 0.00-0.40 Bilirubin, Total 0.3 mg/dL (Normal) Range: 0.0-1.2 Albumin, Serum 4.7 g/dL (Normal) Range: 3.5-5.5 Protein, Total, Serum 7.3 g/dL (Normal) Range: 6.0-8.5 01-Jul-2014 Written Authorization WAR (Normal) Comments: PATIENT WAS FASTINGPERFORMED BY: [facility] Tqzhyp9455 [facility] [id number] 13:38 Comments: Written Authorization Received.Authorization received from GEORGE OSCAR LPN 12-59-5555Rrgmcm by Sandrita Onofre 86-Mkc-324944:38 CALCIFEDIOL (70766) Comments: PATIENT WAS FASTINGPERFORMED BY: [facility]6370 [facility] [id number] Vitamin D, 25-Hydroxy 30.1 ng/mL (Normal) Range: 30.0-100.0 Comments: Vitamin D deficiency has been defined by the [place] ofMedicine and an Endocrine Society practice guideline as alevel of serum 25-OH vitamin D less than 20 ng/mL (1,2).The Endocrine Society went on to further define vitamin Dinsufficiency as a level between 21 and 29 ng/mL (2).1. IOM ([place] of Medicine). 2010. Dietary reference intakes for calcium and D. [place]: The National Academies Press.2. Myla MF, Javier [place], Panfilo MANN, et al. Evaluation, treatment, and prevention of vitamin D deficiency: an Endocrine Society clinical practice guideline. JCEM. 2010; 96(7):1911-30. 22-Oyq-309537:38 LIPID PANEL (85953) Comments: PATIENT WAS FASTINGPERFORMED BY: [facility]6370 [facility] [id number] Information: [id number] LDL/HDL Ratio 4.2 {ratio_units} (Abnormal) Range: 0.0-3.2 [...] FUNCTION PANEL Comments: PATIENT NOT FASTINGPERFORMED BY: [place] 8901770 [facility] [id number] Information: [id number] (98304) ALT (SGPT) 193 [iU]/L (Abnormal) Range: 0-32 AST (SGOT) 43 [iU]/L (Abnormal) Range: 0-40 Alkaline Phosphatase, S 135 [iU]/L (Abnormal) Range: 39-117 Bilirubin, Direct 0.18 mg/dL (Normal) Range: 0.00-0.40 Bilirubin, Total 0.3 mg/dL (Normal) Range: 0.0-1.2 Albumin, Serum 4.1 g/dL (Normal) Range: 3.5-5.5 Protein, Total, Serum 6.7 g/dL (Normal) Range: 6.0-8.5 :49 HEPATITIS PANEL (48030) Comments: PATIENT NOT FASTINGPERFORMED BY: [facility]6370 [facility] [id number] Hep C Virus Ab <0.1 {s/co_ratio} (Normal) Range: 0.0-0.9 Comments: Negative: < 0.8 Indeterminate: 0.8 - 0.9 Positive: > 0.9 . In order to reduce the incidence of a false positive result, the CDC recommends that all s/co ratios between 1.0 and 10.9 be confirmed by a more specific supplemental or PCR testing. [facility] offers HCV Ab w/Reflex to Verification test #250033. Hep B Core Ab, IgM Negative (Normal) HBsAg Screen Negative (Normal) Hep A Ab, IgM Negative (Normal) 38-Zys-348945:49 ANTIMITOCHONDRIAL ANTIBODY Comments: PATIENT NOT FASTINGPERFORMED BY: Aquacue Wddkjg1308 [facility] [id number] (07775) Atypical pANCA <1:20 {titer} (Normal) Comments: The [...] follow up testing ofpositive sera with both MI-3 and MPO- ANCA enzyme immunoassays. Asmany as 5% serum samp les are positive only by EIA.Ref. AM J Clin Pathol 1999;111:507-513. Cytoplasmic (C-ANCA) <1:20 {titer} (Normal) 37-Iqg-107610:49 TRANSFERRIN (15645) Comments: PATIENT NOT FASTINGPERFORMED BY: Metabar6370 [facility] [id number] Transferrin 259 mg/dL (Normal) Range: 200-370 26-Lit-577624:49 GGT (GAMMA GLUTAMYLTRANSFERASE) Comments: PATIENT NOT FASTINGPERFORMED BY: Balakamrp Coajhi6727 [facility] [id number] (97296) GGT 385 [iU]/L (Abnormal) Range: 0-60 34-Vcd-192195:49 FERRITIN (94137) Comments: PATIENT NOT FASTINGPERFORMED BY: [employer] Yqiesr8732 [facility] [id number] Ferritin, Serum 447 ng/mL (Abnormal) Range: 15-150 04-Ntn-136467:49 CMV IGM ANTBDY (40778) Comments: PATIENT NOT FASTINGPERFORMED BY: Aquacue Adakld5157 [facility] [id number] Cytomegalovirus (CMV) Ab, IgM <30.0 AU/mL (Normal) Range: 0.0-29.9 Comments: Negative <30.0 Equivocal 30.0 - 34.9 Positive >34.9 A positive result is generally indicative of acute infection, reactivation or persistent IgM production. 91-Eoe-269697:49 CERULOPLASMIN (58589) Comments: PATIENT NOT FASTINGPERFORMED BY: [place] [id number] [facility] [id number] Ceruloplasmin 29.9 mg/dL (Normal) Range: 16.0-45.0 15-Ofb-971114:49 ASM (ANTI SMOOTH MUSCLE Comments: PATIENT NOT FASTINGPERFORMED BY: [address] [id number] ANTIBODY) (14410) Actin (Smooth Muscle) Antibody 5 {Units} (Normal) Range: 0-19 Comments: Negative 0 - 19 Weak positive 20 - 30 Moderate to strong positive >30 . Actin Antibodies are found in 52-85% of patients with autoimmune hepatitis or chronic active hepatitis and in 22% of patients with primary biliary cirrhosis. 81-Pzz-358425:49 ANTI-LIVER/KIDNEY MICROSOMAL Comments: PATIENT NOT FASTINGPERFORMED BY: [place] 8901770 [facility] [id number] ANTIBODY (94367) Thyroid Peroxidase (TPO) Ab 9 {IU/mL} (Normal) Range: 0-34 66-Cuq-129177:49 LOLITA (ANTINUCLEAR ANTIBODY) Comments: PATIENT NOT FASTINGPERFORMED BY: [address] [id number] (91584) LOLITA Direct Negative (Normal) 32-Dbk-455473:49 TSH (47387) Comments: PATIENT NOT FASTINGPERFORMED BY: [address] [id number] TSH 1.520 {uIU/mL} (Normal) Range: 0.450-4.500 46-Vkw-115093:49 T4, FREE (THYROXINE) (70928) Comments: PATIENT NOT FASTINGPERFORMED BY: [address] [id number] T4,Free(Direct) 0.97 ng/dL (Normal) Range: 0.82-1.77 70-Zda-981534:49 T3, FREE (TRIDOTHYRONINE) (45609) Comments: PATIENT NOT FASTINGPERFORMED BY: CB [facility] Oswcgs6638 [address] RoadDublin [place] [id number] Triiodothyronine,Free,Serum 3.2 pg/mL (Normal) Range: 2.0-4.4 89-Yry-941404:23 Throat Culture (31231) Comments: PATIENT NOT FASTINGPERFORMED BY: CB [facility] Orukzm4363 [address]aca RoadDublin [place] [id number] Information: SRC:THRT [id number] Result 1 RRF (Normal) Comments: Routine respiratory edith Upper Respiratory Culture Final report (Normal) 93-Hqn-92069:36 Rapid Strep Test, Office (51554) Rapid Strep Test, Office Negative (Normal) 76-Azb-03090:38 CALCIFEDIOL (04595) Comments: PATIENT WAS FASTINGPERFORMED BY: CB [facility] Iktdov[address] [facility] [place] [id number] Vitamin D, 25-Hydroxy 16.2 ng/mL (Abnormal) Range: 30.0-100.0 Comments: Vitamin D deficiency has been defined by the [place] ofMedicine and an Endocrine Society practice guideline as alevel of serum 25-OH vitamin D less than 20 ng/mL (1,2).The Endocrine Society went on to further define vitamin Dinsufficiency as a level between 21 and 29 ng/mL (2).1. IOM ([place] of Medicine). 2010. Dietary reference intakes for calcium and D. [place]: The National Academies Press.2. Myla MF, Javier NC, Panfilo MANN, et al. Evaluation, treatment, and prevention of vitamin D deficiency: an Endocrine Society clinical practice guideline. JCEM. 2010; 96(7):1911-30. :38 Lipid Panel (84075) Comments: PATIENT WAS FASTINGPERFORMED BY: CB [facility] Redfcy6777 [address]aca RoadDublin [place] [id number] Information: [id number] LDL/HDL Ratio 3.8 {ratio_units} (Abnormal) Range: 0.0-3.2 [...] FUNCTION PANEL Comments: PATIENT WAS FASTINGPERFORMED BY: [facility]Nov[facility] [id number] (14737) ALT (SGPT) 446 [iU]/L (Abnormal) Range: 0-32 AST (SGOT) 119 [iU]/L (Abnormal) Range: 0-40 Alkaline Phosphatase, S 176 [iU]/L (Abnormal) Range: 39-117 Bilirubin, Direct 0.59 mg/dL (Abnormal) Range: 0.00-0.40 Bilirubin, Total 1.2 mg/dL (Normal) Range: 0.0-1.2 Albumin, Serum 4.2 g/dL (Normal) Range: 3.5-5.5 Protein, Total, Serum 7.0 g/dL (Normal) Range: 6.0-8.5 :24 Metabolic Panel, Comprehensive Comments: PATIENT NOT FASTINGPERFORMED BY: Codacy70 Access NetworkNov[facility] Health [facility] [id number] (94968) ALT (SGPT) 40 [iU]/L (Abnormal) Range: 0-32 [...] Glucose, Serum 108 mg/dL (Abnormal) Range: 65-99 41-Wpv-483730:24 CBC, Platelets & Auto Comments: PATIENT NOT FASTINGPERFORMED BY: [facility] Opbxhj9973 [facility] [id number] Information: [id number] Diff (97257) Immature Grans (Abs) 0.0 {x10E3/uL} (Normal) Range: [...] 3.77-5.28 WBC 10.1 {x10E3/uL} (Normal) Range: 3.4-10.8 73-Hiu-073670:09 URINE KENROY CULTURE-IDENTIFICATN Comments: PATIENT NOT FASTINGPERFORMED BY: Aquacue X BODY [facility] [id number] Information: [id number] (36253) Result 1 MUG (Normal) Comments: Mixed urogenital flora1,000 Colonies/mL Urine Culture,Comprehensive Final report (Normal) 96-Uzu-766706:21 Urinalysis, Office (11997) UA - LEUKOCYTE ESTERASE Trace (Normal) UA - NITRITE Negative (Normal) URINE UROBILINGN JUAN TIMED Normal mg/dL (Normal) UA - PROTEIN Negative mg/dL (Normal) UA - PH 6 (Abnormal) UA - BLOOD Negative (Normal) UA - SPECIFIC GRAVITY 1.025 (Normal) UA - KETONES Negative mg/dL (Normal) UA - BILIRUBIN Negative (Normal) UA - GLUCOSE Negative (Normal) 54-Rre-820653:39 HEPATITIS B SURFACE ANTIBODY Comments: PATIENT NOT FASTINGPERFORMED BY: Balakam X BODY [facility] [id number] (99777) Hep B Surface Ab, Qual Non Reactive (Normal) Comments: Non Reactive: Inconsistent with immunity, less than 10 mIU/mL Reactive: Consistent with immunity, greater than 9.9 mIU/mL 99-Wfr-958155:39 HEPATITIS PANEL (51631) Comments: PATIENT NOT FASTINGPERFORMED BY: Balakam X BODY [facility] [id number] Information: [id number] Hep C Virus Ab 0.2 {s/co_ratio} (Normal) Range: 0.0-0.9 Comments: Negative: < 0.8 Indeterminate 0.8 - 0.9 Positive: > 0.9 . In order to reduce the incidence of a false positive result, the CDC recommends that all s/co ratios between 1.0 and 10.9 be confirmed by a more specific supplemental or PCR testing. [facility] CommunicationsSt. [facility] offers HCV Ab w/Reflex to Verification test #470887. Hep B Core Ab, IgM Negative (Normal) HBsAg Screen Negative (Normal) Hep A Ab, IgM Negative (Normal) 57-Mwg-063869:39 OWFJP-ZBKNWOWHEEP-UBFYD (10489) Comments: PATIENT NOT FASTINGPERFORMED BY: [facility]6370 [facility] [id number] AFP, Serum, Tumor Marker 2.8 ng/mL (Normal) Range: 0.0-8.3 Comments: Ozzie ECLIA methodology 4-Cwh-462749:59 CBC, Platelets & Auto Diff Comments: PATIENT NOT FASTINGPERFORMED BY: [facility]6370 [facility] [id number] Information: [id number] (62370) Immature Grans (Abs) 0.0 {x10E3/uL} (Normal) Range: [...] 3.77-5.28 WBC 10.1 {x10E3/uL} (Normal) Range: 3.4-10.8 5-Ubh-571675:59 Metabolic Panel, Comprehensive Comments: PATIENT NOT FASTINGPERFORMED BY: LabCoHudson County Meadowview HospitalLdpabd2677 [facility] [id number] (32620) ALT (SGPT) 27 [iU]/L (Normal) Range: 0-32 [...] Glucose, Serum 125 mg/dL (Abnormal) Range: 65-99 0-Fej-333934:08 Urinalysis, Office (52068) UA - LEUKOCYTE ESTERASE Moderate (Normal) UA - NITRITE Positive (Normal) URINE UROBILINGN JUAN TIMED Normal mg/dL (Normal) UA - PROTEIN Negative mg/dL (Normal) UA - PH 6 (Abnormal) UA - BLOOD non-hemolyzed trace (Normal) UA - SPECIFIC GRAVITY 1.020 (Normal) UA - KETONES Negative mg/dL (Normal) UA - BILIRUBIN Negative (Normal) UA - GLUCOSE Negative (Normal) 28-Buk-867502:41 Urinalysis, Office (02234) UA - BILIRUBIN Negative (Normal) UA - BLOOD Negative (Normal) UA - GLUCOSE Negative (Normal) UA - KETONES Negative mg/dL (Normal) UA - LEUKOCYTE ESTERASE Negative (Normal) UA - NITRITE Negative (Normal) UA - PH 7.0 (Normal) UA - PROTEIN Negative mg/dL (Normal) UA - SPECIFIC GRAVITY 1.020 (Normal) URINE UROBILINGN JUAN TIMED Normal mg/dL (Normal) 39-Ggr-65547:34 KENROY CULTURE-OTHER (98455) Comments: PATIENT NOT FASTINGPERFORMED BY: [facility]Nov[facility] [id number] Information: SRC: THROAT Result 1 RRF (Normal) Comments: Routine respiratory eidth Upper Respiratory Culture Final report (Normal) 75-Nek-710412:20 ISQUE-LWPCTFMMRWZ-HUAIK (81047) Comments: PATIENT NOT FASTINGPERFORMED BY: Codacy70 Access NetworkNov[facility] [id number] AFP, Serum, Tumor Marker 2.6 ng/mL (Normal) Range: 0.0-8.3 Comments: Ozzie ECLIA methodology 29-Skv-924571:20 PTT (Activated Partial Comments: PATIENT NOT FASTINGPERFORMED BY: [facility]Nov[facility] [id number] Thromboplastin Time) (67861) aPTT 31 {sec} (Normal) Range: 24-33 Comments: This test has not been validated for monitoring unfractionated heparintherapy. aPTT-based therapeutic ranges for unfractionated heparintherapy have not been established. For general guidelines onHeparin monitoring, refer to the Xplorn[employer] CommunicationsSt. [facility] Directory of Services. 80-Mmk-040663:20 PT (Prothrobim Time) (15769) Comments: PATIENT NOT FASTINGPERFORMED BY: [facility] [facility] [id number] INR 1.0 (Normal) Range: 0.8-1.2 Comments: Reference interval is for non-anticoagulated patients. . Suggested INR therapeutic range for Vitamin K anta gonist therapy: Standard Dose (moderate intensity therapeutic range): 2.0 - 3.0 Higher intensity therapeutic range 2.5 - 3.5 Prothrombin Time 10.3 {sec} (Normal) Range: 9.1-12.0 06-Esn-257027:20 CBC WITH MANUAL DIFF Comments: PATIENT NOT FASTINGPERFORMED BY: [facility] [facility] [id number] Information: [id number] (50638) Immature Grans (Abs) 0.0 {x10E3/uL} (Normal) Range: [...] 3.77-5.28 WBC 12.1 {x10E3/uL} (Abnormal) Range: 4.0-10.5 78-Ueg-070926:49 GALLBLADDER Radiology Report See Note (Normal) Comments: [...] size of the right kidney. The right vhikbgokkkmkny39.8 cm. Normal renal cortex. The right cortex measures 1.1 cm. Thereisno demonstrated renal mass or cyst. There is no right hydronephrosis. IMPRESSION:Solitary gallstone.Fatty infiltration of the liver. Signed:Jono Dumont M.D.October 11, 2012 at 2:01:18 PM [id number] Signed GP/GP If you are the referring physician and would like to consult with theradiologist who provided this interpretation, please contact Simone Espino at [phone]. If this radiologist is unavailable, youwi ll be directed to another radiologist to assist. If you are a patient with a question regarding this report, pleasecontactyour referring physician directly. Professional Interpretation Provided By: Cristian kiara, Phone , These documents contain legally protected [...] 10/11/12 1406 Sign by: Jono Dumont MD 95-Hbm-663678:14 C-REACTIVE PROTEIN (61147) Comments: PATIENT NOT FASTINGPERFORMED BY: Aqu[employer] [id number] Access NetworkNov[facility] [id number] C-Reactive Protein, Quant 11.5 mg/L (Abnormal) Range: 0.0-4.9 57-Ozc-749278:14 SED RATE ERYTHROCYTE (41718) Comments: PATIENT NOT FASTINGPERFORMED BY: [id number] [facility] NetworkNov[facility] [id number] Sedimentation Rate-Westergren 7 mm/h (Normal) Range: 0-32 48-Nci-010900:14 CBC WITH MANUAL DIFF Comments: PATIENT NOT FASTINGPERFORMED BY: Aqu[employer]ue [id number] Access NetworkNov[facility] [id number] Information: [id number] (44791) Immature Grans (Abs) 0.0 {x10E3/uL} (Normal) Range: [...] 3.77-5.28 WBC 13.1 {x10E3/uL} (Abnormal) Range: 4.0-10.5 75-Fbw-092358:14 METABOLIC PANEL, COMPREHENSIVE Comments: PATIENT NOT FASTINGPERFORMED BY: [facility] Dhjuph15[address] [facility] [id number] (63769) ALT (SGPT) 25 [iU]/L (Normal) Range: 0-32 [...] mg/dL (Abnormal) Range: 65-99 21-Sep-20129:52 Rapid Flu (88717 x 2) Influenza A Ag pos a (Normal) 0-Gcq-769797:01 Influenza A&B Viral Comments: PATIENT NOT FASTINGPERFORMED BY: Codacy70 [facility] [id number] Information: SRC:NOS [id number] Culture (36383) Viral Culture,Rapid,Influenza PFLUA (Abnormal) Comments: PositiveInfluenza A detected.. 7-Vwm-170977:40 LIPID PANEL (11743) Comments: PATIENT WAS FASTINGPERFORMED BY: [email or web address] Bgghma7635 [facility] [id number] LDL/HDL Ratio 3.0 {ratio_units} (Normal) Range: 0.0-3.2 LDL Cholesterol Calc 103 mg/dL (Abnormal) Range: 0-99 VLDL Cholesterol [place] 33 mg/dL (Normal) Range: 5-40 Cholesterol, Total 170 mg/dL (Normal) Range: 100-199 HDL Cholesterol 34 mg/dL (Abnormal) Comments: According to ATP-III Guidelines, HDL-C >59 mg/dL is considered anegative risk factor for CHD. Triglycerides 163 mg/dL (Abnormal) Range: 0-149 5-Drs-784435:40 METABOLIC PANEL, Comments: PATIENT WAS FASTINGPERFORMED BY: [facility] [id number] Information: [id number] COMPREHENSIVE (57592) ALT (SGPT) 29 [iU]/L (Normal) Range: 0-32 [...] Glucose, Serum 87 mg/dL (Normal) Range: 65-99 82-Koj-51552:35 KENROY CULTURE-OTHER (63169) Comments: PATIENT NOT FASTINGPERFORMED BY: [facility] [facility] [id number] Information: SRC:GREG [id number] Result 1 RRF (Normal) Comments: Routine respiratory edith Upper Respiratory Culture Final report (Normal) 50-Grm-76562:21 Rapid Strep Test, Office (23127) Rapid Strep Test, Office Negative (Normal) 3-Dhr-262653:10 CBC With Differential/Platelet Comments: PATIENT WAS FASTINGPERFORMED BY: [facility] [id number] Immature Grans (Abs) 0.0 {x10E3/uL} (Normal) Range: [...] Panel (14) Comments: PATIENT WAS FASTINGPERFORMED BY: Balakam Ztpunq8578 [facility] [id number] ALT (SGPT) 22 [iU]/L (Normal) Range: 0-40 [...] % (Abnormal) Comments: PATIENT WAS FASTINGPERFORMED BY: BalakamHudson County Meadowview HospitalKbrybt4146 [facility] [id number] :10 Range: 4.8-5.6 Comments: . Increased risk for diabetes: 5.7 - 6.4 Diabetes: >6.4 Glycemic control for adults with diabetes: <7.0 9-Onm-578471:10 Lipid Panel With LDL/HDL Comments: PATIENT WAS FASTINGPERFORMED BY: [facility] [facility] [id number] Ratio LDL/HDL Ratio 4.3 {ratio_units} (Abnormal) Range: 0.0-3.2 LDL Cholesterol Calc 154 mg/dL (Abnormal) Range: 0-99 VLDL Cholesterol [place] 23 mg/dL (Normal) Range: 5-40 HDL Cholesterol 36 mg/dL (Abnormal) Comments: According to ATP-III Guidelines, HDL-C >59 mg/dL is considered anegative risk factor for CHD. Triglycerides 115 mg/dL (Normal) Range: 0-149 Cholesterol, Total 213 mg/dL (Abnormal) Range: 100-199 8-Tux-393313:10 Microalb/Creat Ratio, Randm Ur Comments: PATIENT WAS FASTINGPERFORMED BY: [facility] [facility] [id number] Microalb/Creat Ratio 6.3 {mg/g_creat} (Normal) Range: 0.0-30.0 Creatinine, Urine 30.4 mg/dL (Normal) Range: 15.0-278.0 Microalbumin, Urine 1.9 ug/mL (Normal) Range: 0.0-17.0 2-Ffp-653474:10 Microscopic Examination Comments: PATIENT WAS FASTINGPERFORMED BY: [facility] [facility] [id number] Bacteria Few (Normal) Mucus Threads Present (Normal) Epithelial Cells (non 0-10 {/hpf} Range: 0 - 10 renal) (Normal) RBC None seen {/hpf} Range: 0 - 3 (Normal) WBC 0-5 {/hpf} (Normal) Range: 0 - 5 TSH 2.190 {uIU/mL} Comments: PATIENT WAS FASTINGPERFORMED BY: [facility] [facility] [id number] :10 (Normal) Range: 0.450-4.500 2-Ccm-350379:10 Urinalysis, Complete Comments: PATIENT WAS FASTINGPERFORMED BY: [place] [id number] [facility] [id number] Microscopic Examination See below: (Normal) Microscopic Examination MICRON (Normal) Comments: Microscopic follows if indicated. Nitrite, Urine Negative (Normal) Urobilinogen,Semi-Qn 0.2 mg/dL (Normal) Range: 0.0-1.9 Bilirubin Negative (Normal) Occult Blood Negative (Normal) Ketones Negative (Normal) Glucose Negative (Normal) Protein Negative (Normal) WBC Esterase Negative (Normal) Appearance Clear (Normal) Urine-Color Yellow (Normal) pH 7.5 (Normal) Range: 5.0-7.5 Specific Warriormine 1.008 (Normal) Range: 1.005-1.030 8-Yas-183853:53 CHEST, PA AND LATERAL Radiology Report See [...] shah M.D.May 28, 2012 at 3:41:15 PM [id number] Signed GP/GP If you are the referring physician and would like to consult with theradiologist who provided this interpretation, please contact Simone Espino at [phone]. If this radiologist is unavailable, youwill be directed to another radiologist to assist. If you are a patient with a question regarding this report, pl easecontactyour referring physician directly. Professional Interpretation Provided By: [employer], Phone , These documents contain legally protected and confidential healt hinformation intended only for the use of the individual or entity namedabove. If you are not the intended recipient, you are hereby notifiedthatany disclosure, copying, distribution, or other use of doctors hospital documents isstrictly prohibited. If you have [...] Marquez M.D.May 26, 2012 at 9:02:07 PM EDT(983) [phone] Signed AM/AM If you are the referring physician and would like to consult with theradiologist who provided this i nterpretation, please contact Joanne Marquez M.D. at . If this radiologist is unavailable, you will bedirected to another radiologist to assist. If you are a patient with a question regarding this report, pleasecontactyour referring physician directly. Professional Interpretation Provided By: [employer], Phone , These documents contain legally protected [...] Plan of Care Name Dates Details Instructions Impaired Fasting Glucose : Eprescribed prescriptions (G8553) [...] Eprescribed prescriptions (G8553) Indication: Impaired Fasting Glucose [facility] Physical : Eprescribed prescriptions (G8553) Indication: [...] partial nephrectomy H/O partial nephrectomy : Reviewed Manager [facility] Term Care Letter Indication: H/O partial nephrectomy Abdominal pain, [...] Indication: Abdominal pain, acute, generalized Planned Observations Vitamin B-12 (cyanocobalamin) (41169)Indication: Vitamin B12 deficiency On: 40-Nmd-884043:39 Request CBC with auto diff (10573)Indication: Impaired Fasting Glucose On: :37 Request METABOLIC PANEL, COMPREHENSIVE (93155)Indication: Impaired Fasting Glucose On: :37 Request KZSXK-EQLVBGLIQVW-TSPTQ (40550)Indication: Fatty liver On: 91-Gqc-835302:37 Request MICROALBUMIN: CREATININE RATIO (81717) AND (59045)Indication: Hypertension, benign On: : Request IMMUNOGLOBULIN E (IgE) (81431)Indication: Acute bronchitis On: : Request LIPID PANEL (73439)Indication: Mixed hyperlipidemia On: :40 Request WNGLV-KAWJDZNSPMQ-FJVQX (59447)Indication: Fatty liver On: :40 Request HGB A1C (14850)Indication: Impaired Fasting Glucose On: :40 Request METABOLIC PANEL, COMPREHENSIVE (87239)Indication: Impaired Fasting Glucose On: :40 Request CBC (AUTO) (68942)Indication: Impaired Fasting Glucose On: :49 Request Vitamin D Hydroxy (17544)Indication: Vitamin D deficiency On: :48 Request METABOLIC PANEL, COMPREHENSIVE (75183)Indication: Mixed hyperlipidemia On: :48 Request LIPOPROTEIN, BLD, BY NMR (50359)Indication: Mixed hyperlipidemia On: :48 Request OPWAN-RZVMFSEQCVA-YYDGQ (91793)Indication: Acute foot pain, right On: 63-Dee-296086:38 Request Vitamin D Hydroxy (96408)Indication: Vitamin D deficiency On: :50 Request ISCUT-ONLAMBBDCEJ-TMNDY (77753)Indication: Fatty liver On: 23-Nov-20159:50 Request METABOLIC PANEL, COMPREHENSIVE (83390)Indication: Impaired Fasting Glucose On: 23-Nov-20159:49 Request MICROALBUMIN: CREATININE RATIO (87174) AND (04223)Indication: Impaired Fasting Glucose On: :49 Request HGB A1C (06840)Indication: Impaired Fasting Glucose On: 23-Nov-20159:49 Request LIPID PANEL (85949)Indication: Mixed hyperlipidemia On: 23-Nov-20159:49 Request LIPID PANEL (18983)Indication: Mixed hyperlipidemia On: : Request MICROALBUMIN: CREATININE RATIO (65816) AND (39121)Indication: Impaired Fasting Glucose On: :00 Request Hemoglobin Glyclated (HGB A1C) (77127)Indication: Impaired Fasting Glucose On: : Request Vitamin D Hydroxy (60695)Indication: Vitamin D deficiency On: 69-Tpl-964407:00 Request Vitamin D Hydroxy (33571)Indication: Vitamin D deficiency On: 74-Qjy-505955:11 Request CBC with auto diff (44206)Indication: Hypertension, benign On: 07-Tvo-502064:11 Request METABOLIC PANEL, COMPREHENSIVE (53034)Indication: Impaired Fasting Glucose On: 53-Zuy-699062:10 Request MICROALBUMIN: CREATININE RATIO (30813) AND (33360)Indication: Impaired Fasting Glucose On: 68-Zpt-919599:10 Request Hemoglobin Glyclated (HGB A1C) (33684)Indication: Impaired Fasting Glucose On: 43-Mfz-203313:10 Request LIPID PANEL (72788)Indication: Mixed hyperlipidemia On: 10-Nos-833023:10 Request FJJLW-HJIUDQIFLVZ-XZEKG (79208)Indication: Fatty liver On: 94-Shk-755093:10 Request Vitamin D Hydroxy (57708)Indication: Vitamin D deficiency On: 0-Dkc-705819:15 Request Hemoglobin Glyclated (HGB A1C) (81380)Indication: Impaired Fasting Glucose On: 6-Nzk-448144:14 Request METABOLIC PANEL, COMPREHENSIVE (83618)Indication: Impaired Fasting Glucose On: 3-Hpu-211562:14 Request LIPID PANEL (24780)Indication: Mixed hyperlipidemia On: 0-Wtl-960680:14 Request Lipid Panel (88111)Indication: Elevated liver enzymes On: 43-Mhn-704322:47 Request HEPATIC FUNCTION PANEL (52221)Indication: Mixed hyperlipidemia On: 69-Gnr-059161:08 Request CALCIFEDIOL (76293)Indication: Unspecified Diagnosis On: 05-Qip-43281:53 Request Lipid Panel (24097)Indication: Unspecified Diagnosis On: 58-Aox-35902:53 Request Lipid Panel (44542)Indication: SCREENING FOR HYPERLIPIDEMIA (Renamed from Encounter for screening for lipoid disorders) On: 97-Zou-891360:34 Request Comments: To be drawn Fasting Mar 2014 METABOLIC PANEL, COMPREHENSIVE (63985)Indication: Left knee pain On: 77-Fec-553505:39 Request CCP ANTIBODY (61299)Indication: Left knee pain On: 32-Xgc-276511:39 Request SED RATE ERYTHROCYTE (56006)Indication: Left knee pain On: 77-Fcv-531544:39 Request C-REACTIVE PROTEIN (17300)Indication: Left knee pain On: 66-Pio-069230:39 Request TSH (66825)Indication: Left knee pain On: 86-Gjh-902090:39 Request RHEUMATOID FACTOR-QUANT (14639)Indication: Left knee pain On: 37-Qcc-512742:39 Request Rapid Strep Test, Office (85512)Indication: ACUTE PHARYNGITIS (462.) On: 50-Cvu-47513:20 Request C-REACT PROT HIGH SENS(hsCRP) (77626)Indication: Hypertension, benign On: 27-Owi-589449:16 Request Sed Rate Erythrocyte (07930)Indication: Hypertension, benign On: 65-Bme-894712:16 Request CBC with manual diff (63210)Indication: Hypertension, benign On: :16 Request TSH (34316)Indication: Chest pain On: :33 Request CBC WITH MANUAL DIFF (50886)Indication: Chest pain On: :33 Request MICROALBUMIN: CREATININE RATIO (92391) AND (54532)Indication: Hypertension, benign On: 09-Xnt-624977:47 Request URINALYSIS, W/ MICRO (19704)Indication: Hypertension, benign On: 25-Uab-067835:47 Request Hemoglobin Glyclated (HGB A1C) (93058)Indication: Obesity, unspecified On: 61-Xgy-156430:47 Request LIPID PANEL (20182)Indication: Mixed hyperlipidemia On: 21-Xrg-256909:46 Request METABOLIC PANEL, COMPREHENSIVE (03381)Indication: Hypertension, benign On: 16-Osl-127648:46 Request Planned Encounters Medical; [facility] Wellness Exam (DF Nurse) - On: 25-Jul-2018 8:45 [facility] NURSE, DF Medical; [facility] Wellness Exam (Doctor) - On: 20-Aug-2018 13:30 [facility] Fast DO, Marcelle A Fast DO, Marcelle A Planned Procedures Flu Vaccine (Quadrivalent) On: 30-Apr-2018 Intent 04522Ew: Fast DO, Marcelle A Comments: Lot #[id number]/30/19Site-L dltd, IMDose prefilled syringegiven by: Marta AVINA reviewed and ABN signed Fast DO, Marcelle A MAGNETIC RESONANCE IMAGING OF On: 07-Mar-2018 Intent RIGHT CALF WITHOUT THEN WITH CONTRAST (95072)By: Sara Henry Doppler Ultrasound OtherBy: On: 06-Mar-2018 Intent Fast DO, Marcelle A Fast DO, Comments: right leg- stat Marcelle A CT - Abdomen & Pelvis (IV On: 31-Jan-2018 Intent Contrast Needed)By: Fast DO, Comments: with and without contrast Marcelle A Fast DO, Marcelle A Ultrasound - ThyroidBy: Fast On: 16-Oct-2017 Intent DO, Marcelle A Fast DO, Marcelle A ELECTROCARDIOGRAM, COMPLETE On: 20-Jun-2017 Intent (ECG) (66872)By: Fast DO, Marcelle A Fast DO, Marcelle A SCREENING DIGITAL On: 20-Jun-2017 Intent TOMOSYNTHESIS OF BREAST (21598)By: Fast DO, Marcelle A Fast DO, Marcelle A Flu Vaccine (Quadrivalent) On: 20-Jun-2017 Intent 92944Hs: Fast DO, Marcelle A Comments: lot: [id number]: 02/05/18ite/route: L blayne, IMamt: 0.5mlVIS and ABN signed when applicableChelsea, CHAMP Fast DO, Marcelle A Doppler Ultrasound OtherBy: On: 28-Apr-2017 Intent Fast DO, Marcelle A Fast DO, Comments: rightleg today call results Marcelle A Radiology - Knee - Right - On: 28-Apr-2017 Intent Weight BearingBy: Fast DO, Marcelle A Fast DO, Marcelle A Radiology - Foot - RightBy: On: 28-Apr-2017 Intent Fast DO, Marcelle A Fast DO, Comments: attn 2nd 3rd metatarsal pain Marcelle A Ultrasound - LiverBy: Fast On: 19-Mar-2017 Intent DO, Marcelle A Fast DO, Marcelle A B 12 Injection, 1000 mcg On: 09-Dec-2016 Intent (J3420)By: Fast DO, Marcelle A Comments: Lot:[id number]:01/05Dose:1mlRoute:IMSite:l armGiven By:BRIAN signed Fast DO, Marcelle A Aerosol Treatment (51591)By: On: 23-Sep-2016 Intent Fast DO, Marcelle A Fast DO, Comments: with albuterol Marcelle A Ultrasound - ThyroidBy: Fast On: 29-Aug-2016 Intent DO, Marcelle A Fast DO, Marcelle A Radiology - Shoulder - On: 16-May-2016 Intent LeftBy: Fast DO, Marcelle A Fast Comments: with ac joint please DO, Marcelle A DEXA SCAN AXIAL SKELETON On: 16-May-2016 Intent (22681)By: Fast DO, Marcelle A Fast DO, Marcelle A MAMMOGRAM, SCREENING, BOTH On: 16-May-2016 Intent BREAST (72598)By: Fast DO, Marcelle A Fast DO, Marcelle A ELECTROCARDIOGRAM, COMPLETE On: 16-May-2016 Intent (ECG) (39093)By: Andrew DO, Comments: ekg showed normal sinus rhythym, normal axis, no acute st/t wave changes slight prolong qt Marcelle A Fast DO, Marcelle A Flu Vaccine (Quadrivalent) On: 16-May-2016 Intent 05966Rz: Fast DO, Marcelle A Comments: Lot #:[id number] date:02/17/17mount given:0.5mlRoute: IMSite given: left deltoidGiven by: TRAM Burch Fast DO, Marcelle A ADMINISTRATION OF INFLUENZA On: 16-May-2016 Intent VIRUS VACCINE (G0008)By: Fast DO, Marcelle A Fast DO, Marcelle A Radiology - Foot - RightBy: On: 16-Mar-2016 Intent Fast DO, Marcelle A Fast DO, Marcelle A CT - Chest (Without On: 18-Sep-2015 Intent Contrast)By: Fast DO, Marcelle A Comments: attn left suproaclavicular Fast DO, Marcelle A Ultrasound - ThyroidBy: Fast On: 18-Sep-2015 Intent DO, Marcelle A Fast DO, Marcelle A Ultrasound - ThyroidBy: Ciesa On: 27-May-2015 Intent Vivian BACH Radiology - ChestBy: Ciesa On: 18-May-2015 Intent Vivian BACH MAMMOGRAM, SCREENING, BOTH On: 15-May-2015 Intent BREAST (18380)By: Fast DO, Marcelle A Fast DO, Marcelle A Flu Vaccine (Quadrivalent) On: 15-May-2015 Intent 46491Ja: Fast DO, Marcelle A Comments: Lot:[id number]:01/03Dose:0.5mLRoute:IMSite:L DltdGiven By:AZEB Kennedy signed Fast DO, Marcelle A ADMINISTRATION OF INFLUENZA On: 15-May-2015 Intent VIRUS VACCINE (G0008)By: Marcelle Daley DO, DO, Debra A EKG (37501)By: Andrew MATHIS, On: 06-Feb-2015 Intent Marcelle Coronel DO A Comments: ekg showed normal sinus rhythym, normal axis, no acute st/t wave changes lvh no change Aerosol Treatment (98409)By: On: 15-Jan-2015 Intent Jing Harrison DO Comments: more a/e - still exp noise on left side only Radiology - Chest- PA and On: 15-Jan-2015 Intent LatBy: Jing Harrison DO Flu Vaccine (Quadrivalent) On: 20-Jun-2014 Intent 37986Xi: Vivian Washington CNP ADMINISTRATION OF INFLUENZA On: 20-Jun-2014 Intent VIRUS VACCINE (G0008)By: Vivian Washington CNP Ultrasound - ThyroidBy: On: 19-Jun-2014 Intent Jing Harrison DO EsophagramBy: Christy MATHIS, On: 19-Jun-2014 Intent Jing Comments: with [address] - Abdomen & PelvisBy: On: 26-Nov-2013 Intent George Oscar LPN Comments: KIDNEY-L CT - PelvisBy: Felix BACH, On: 26-Nov-2013 Intent Vivian Mosqueda Comments: Attention Left kidney hypodensity L POle, previous L partial nephrectomy Ultrasound - RenalBy: Felix On: 22-Nov-2013 Intent Vivian BACH Eprescribed prescriptions On: 16-Jul-2013 Intent (G8553)By: Vivina Washington CNP IMMUNIZ ADMNIN, 1 VAC, On: 03-Jul-2013 Intent SNGL/COMBO (20872)By: Nitin Comments: Lot #[id number]-L dltd, IMDose prefilled syringegiven by:SIMONE Luque and ABN signed Maty BARRON FLU VAC, SPLIT, >3 YEARS, On: 03-Jul-2013 Intent INTRAMUSC (49927)By: Maty Taveras LPN Toradol Injection, 30 mg On: 31-May-2013 Intent (J1885)By: Vivian Washington CNP Radiology - Left KneeBy: On: 31-May-2013 Intent Vivian Washington CNP Eprescribed prescriptions On: 06-Mar-2013 Intent (G8553)By: Sara Henry EKG (00515)By: Fast DO, On: 15-Oct-2012 Intent Marcelle A Fast DO, Marcelle A Comments: ekg showed normal sinus rhythym, normal axis, no acute st/t wave changes nsivcd no change Spirometry (50718)By: Fast On: 15-Oct-2012 Intent DO, Marcelle A Fast DO, Marcelle A Comments: good effort and curve normal Radiology - Chest- PA and On: 15-Oct-2012 Intent LatBy: Fast DO, Marcelle A Fast DO, Marcelle A Ultrasound - GallbladderBy: On: 09-Oct-2012 Intent Fast DO, Marcelle A Fast DO, Marcelle A Eprescribed prescriptions On: 09-Oct-2012 Intent (G8553)By: Melania Salcedo Aerosol Treatment (84651)By: On: 21-Sep-2012 Intent Vivian Washington CNP Eprescribed prescriptions On: 20-Jul-2012 Intent (G8553)By: Melania Salcedo SPECIMEN HNDLNG/TRNSPRT, OFFC On: 11-Jul-2012 Intent > LAB (20671)By: George Oscar LPN FLU VAC, SPLIT, >3 YEARS, On: 18-May-2012 Intent INTRAMUSC (35114)By: Denisse, Comments: Lot:[id number]:6.30.13Dose:prefilledRoute:IMSite:L DltdGiven By:BRIAN Velázquez CT - Abdomen & PelvisBy: Fast On: 18-May-2012 Intent DO, Marcelle A Fast DO, Marcelle A Echo CompleteBy: Fast DO, On: 18-May-2012 Intent Marcelle A Fast DO, Marcelle A Spirometry (65993)By: Fast On: 18-May-2012 Intent DO, Marcelle A Fast DO, Marcelle A Comments: good effort and curve normal Eprescribed prescriptions On: 18-May-2012 Intent (G8553)By: Fast DO, Marcelle A Fast DO, Marcelle A EKG (18496)By: Fast DO, On: 18-May-2012 Intent Marcelle A Fast DO, Marcelle A Comments: sinus with deep r waves left axis no acute [facility] Radiology - Chest- PA and On: 18-May-2012 Intent LatBy: Fast DO, Marcelle A Fast DO, Marcelle A TD Injection , IM (47193)By: On: 18-May-2012 Intent Melania Salcedo Comments: received in 2002 IMMUNIZ ADMNIN, 1 VAC, On: 18-May-2012 Intent SNGL/COMBO (21118)By: Melania Salcedo Planned Medications INJECTION, KETOROLAC TROMETHAMINE, PER 15 MG Ordered: 31-May-2013 Pending Vivian Washington CNP Vitamin B-12 1000 MCG/ML Injection Solution Ordered: 09-Dec-2016 Pending Fast DO, Marcelle A Fast DO, Marcelle A Instructions Name Dates Details Impaired Fasting Glucose : How to access [...] : Patient Instructions Indication: Impaired Fasting Gl[facility] : How to access health information online Indication: [facility] Physical [facility] Physical : How to access health information online - Detail Indication: [facility] Physical : Patient Instructions Indication: [facility] Wellness Physical Acute foot pain, [...] : Patient Instructions Indication: Hypertension, benign Encounters Phone Encounter On: 08-May-2018 13:24 Encounter Diagnosis: [...] BP med/ Will be seeing neurologist in [place] tomorrow), has decreased energy level (comes and [...] Problem - Note for Foot problem: saw [facility] for foot pain- and got stero id [...] is sleeping poorly (just got back from [employer], time zone). Patient has been compliant with [...] the cleanse and has been going to [employer] with a personal train End: 16-Oct-2017 10:58 [...] new varicose vein- walking more- [facility]: Current nonsmoker, BMI 39.0- 39.9,adult, Right [...] chronic medical issues: going to start the clenydiae in couple days got off the bandwagon- she was walkign regularly at the [facility] until last week -bp is ok- foot [...] medication. Was keeping track of BP at [facility] but the c End: 20-Sep-2015 17:39 [...] had thyroi us- di aston see [facility] saw donald about enlarged lymph node- he thought maybe fatty didnt scan- alot of stress at home thinks wh feeling bad- not having as much left lower rib pain- supposed to have ct of abd she is getting appt with urology t [employer] tthis done se we talked they can [...] do from here. Has seen Oncologist in [place], Dr. Jan Healy which he has referred her to [facility] which she is waiting to get in. margins were not clear and was renal cell carcino alysia hollingsworth wanted to do watchful waiting- but went for second opinion in [place]-- got referred to Dr Iglesia Gibbons- she [...] [facility]: [facility] [...] ([phone]), Abdominal Pain,General ([phone]) [facility] [employer] TEMITOPE VALDOVINOS; a guarantor
--- OUTSIDE RECORDS SUMMARY | 2018-11-11 07:49 | XMS RPT_ITS | Continuity of Care Document ---
:1965 Author Organization [facility] Address [address] [facility] [address] [place] [address] Phone Care Team Providers Name Role Phone [...] per [place], non cancer per [facility] per [place] Status: Active Hair loss (L65.9, 704.00) Status: [...] Rib pain on left side (R07.81, 786.50) Comments: take nsaid if not better will need to do ct Status: Active Right acute serous otitis media, [...] days Quantity: 1 {Packet(s)} Refills: 1 Ordered:23-Nov-2015 Marcelle Daley DO, DO, Marcelle A Start : 23-Nov-2015 Active CeleBREX 100 MG Oral Capsule 1 (one) Capsule Capsule daily prn for 90 days Quantity: 90 {Capsule} Refills: 1 Ordered:09-Apr-2018 Sara Henry Start : 09-Apr-2018 Active Flomax 0.4 MG Oral Capsule 1 (one) Capsule qhs for 0 days Quantity: 14 {Capsule} Refills: 0 Ordered:10-Aug-2018 Marcelle Daley DO, DO, Marcelle A Start : 10-Aug-2018 Active Gabapentin 100 MG Oral Capsule 1 (one) Capsule Capsule tid for 0 days Quantity: 90 {Capsule} Refills: 2 Ordered:20-Jul-2018 Marcelle Daley DO, DO, Marcelle A Start : 20-Jul-2018 Active Losartan Potassium 25 MG Oral Tablet 1 (one) Tablet qd for 90 days Quantity: 90 {Tablet} Refills: 3 Ordered:27-Jul-2018 Marcelle Daley DO, DO, Marcelle A Start : 27-Jul-2018 Active Losartan Potassium 25 MG Oral Tablet 1 (one) Tablet qd for 0 days Quantity: 30 {Tablet} Refills: 0 Ordered:27-Jul-2018 Marcelle Daley DO, DO, Marcelle A Start : 27-Jul-2018 Active Nasacort Allergy 24HR 55 MCG/ACT Nasal Aerosol 1 spray each nostril daily (55 MCG/ACT) Active Nystatin 936466 UNIT/GM External Powder 1 (one) Powder qd for 0 days Quantity: 1 {Bottle} Refills: 1 Ordered:30-Apr-2018 Marcelle Daley DO, DO, Marcelle A Start : 30-Apr-2018 Active ProAir HFA 108 (90 Base) MCG/ACT Inhalation Aerosol Solution 2 (two) Aerosol Soln puffs q 6 hours prn for 0 days Quantity: 1 {Inhaler} Refills: 1 Ordered:21-Jul-2017 Marcelle MATHIS DO, Marcelle A Start : 21-Jul-2017 Active Rosuvastatin Calcium 10 MG Oral Tablet 1/2 Tablet qeve for 0 days Quantity: 90 {Tablet} Refills: 3 Ordered:07-May-2018 Marcelle Daley DO, DO, Marcelle A Start : 07-May-2018 Active Rosuvastatin Calcium 10 MG Oral Tablet 1/2 Tablet qeve for 0 days Quantity: 30 {Tablet} Refills: 3 Ordered:07-May-2018 Marcelle Daley DO DO, Marcelle A Start : 07-May-2018 Active [...] Quantity: 20 {Capsule} Refills: 0 Ordered:16-Oct-2017 Fast , Marcelle AFast DO, Marcelle A Start [...] Refills: 0 Ordered:18-Jan-2017 Fast DO, Marcelle Keysha DO, Marcelle A Start : 07-Dec-2016 End [...] : 06-Dec-2013 End : 21-Apr-2015 Discontinued Ergocalciferol 94502 UNIT Oral Capsule 1 (one) Capsule Capsule q week for 0 days Quantity: 12 {Capsule} Refills: 2 Ordered:08-Mar-2017 Melania Salcedo Start : 04-Nov-2014 End : 08-Mar-2017 Discontinued Ergocalciferol 49286 UNIT Oral Capsule 1 (one) Capsule Capsule [...] Status: Resolved as of 06-Feb-2015 Vaccine for hoxmnbunic-iloaaaa-iurvazogp with poliomyelitis (Z23, V06.3) Status: Inactive as [...] without Cont Result: Comments: See Note; NOTES: [facility] Imaging Services [address] [place] [address] Abdomen/Pelvis without Cont MR#: [id number] Acct: [id number] Name: AMY VALDOVINOS Rep #: [id number] : 1965 F 53 From: Frank Petty MD PCP: Marcelle Daley DO Status: REG CLI Study: Abdomen/Pelvis without Cont Date of Exam: 08/10/18 Exam# [id number] Ordering Dr: Marcelle Daley DO STUDY: CT [...] Service support , CC: Marcelle Daley DO Double Cutter: Signed 28-Mar-2018 NCS and/or EMG Patient Result: Comments: See Note; NOTES: [facility] Pulmonary Services/Neurology [address] [place] [address] MR#: [id number] Acct: [id number] Name: AMY VALDOVINOS Rep #: [id number] : 0 1965 52 From: Adebayo Canchola MD Referring Dr: Blayne Welsh DPM Status: REG CLI Ordering Dr: Date: Location: [facility] Sex: F C NCS and/or EMG [...] Dictated: 03/28/18 1021 Date Transcribed: 03/28/18 102 Double Cutter: NF Signed 10-Mar-2018 Lower Ext No Joint W/WO Cont Result: Comments: See Note; NOTES: [facility] Imaging Services [address] [place] [address] Lower Ext No Joint W/WO Cont MR#: [id number] Acct: [id number] Name: AMY VALDOVINOS Rep #: [id number] : 1965 F 52 From: Ge Moffett MD PCP: Marcelle Daley DO Status: REG CLI Study: Lower Ext No Joint W/WO Cont Date of Exam: 03/10/18 Exam# [id number] Ordering Dr: Marcelle Daley DO STUD Y: [...] Service support , CC: Marcelle Daley DO Double Cutter: Signed 06-Mar-2018 Venous Duplex Lower Extremity Result: Comments: See Note; NOTES: [facility] Cardiovascular Services [address] [place] [address] Venous Duplex US, Unilateral 03/06/18 1435 MR#: [id number] Acct: [id number] Name: AMY CHOI Rep #: [id number] : 1965 52 From: Jared Hines MD [...] Dictated: 03/06/18 1435 Date Transcribed: 03/06/18 1623 Double Cutter: Signed 19-Feb-2018 Abdomen/Pelvis WITH Contrast Result: Comments: See Note; NOTES: [facility] Imaging Services [address] [place] [address] Abdomen/Pelvis WITH Contrast MR#: [id number] Acct: [id number] Name: AMY VALDOVINOS Rep #: [id number] : 1965 F 52 From: Jono Dumont MD PCP: Marcelle Daley DO Status: REG CLI Study: Abdomen/Pelvis WITH Contrast Date of Exam: 02/19/18 Exam# [id number] Ordering Dr: Marcelle Daley DO S TUDY: [...] Jono Dumont MD at 10:35 EDT Tel [phone], Service support , CC: Marcelle Daley DO Double Cutter: Signed 17-Oct-2017 Thyroid Result: Comments: See Note; NOTES: [facility] Imaging Services [address] [place] [address] Thyroid MR#: [id number] Acct: [id number] Name: AMY VALDOVINOS Rep #: [id number] : [birth year] F 52 From: Shine Sawyer MD PCP: Marcelle Daley DO Status: REG CLI Study: Thyroid Date of Exam: 10/17/17 Exam# [id number] Ordering Dr: Marcelle Daley DO STUDY: THYROID [...] Service support , CC: Marcelle Daley DO Double Cutter: Signed 01-Aug-2017 SCREENING MAMM (CAD), BILAT Result: Comments: See Note; NOTES: [facility] Imaging Services [address] [place] [address] SCREENING MAMM (CAD), BILAT MR#: [id number] Acct: [id number] Name: AMY VALDOVINOS Rep #: [id number] : 1965 F 52 From: Jono Dumont MD PCP: Marcelle Daley DO Status: REG CLI Study: SCREENING MAMM (CAD), BILAT Date of Exam: 08/01/17 Exam# [id number] Ordering Dr: Marcelle Daley DO [facility] MOGRAPHY - BILATERAL SCREENING REASON FOR EXAM: [...] delay biopsy of a clinically suspicious abnormality. [id number] Electronically Signed: Alma Dumont MD at 15:11 EST Tel [phone], Service support , CC: Marcelle Daley DO Double Cutter: Signed 01-May-2017 Venous Duplex Lower Extremity Result: Comments: See Note; NOTES: [facility] Cardiovascular Services [address] [place] [address] Venous Duplex US, Unilateral 04/28/17 1357 MR#: [id number] Acct: [id number] Name: AMY CHOI Rep #: [id number] : 1965 51 From: Jared Hines MD Attending Dr: Marcelle Daley DO Status: REG CLI Ordering Dr: Marcelle Daley DO Date: 04/28/17 Location: [facility] Sex: F C Admitted: [place] son For Study: SWELLING RIGHT LEFT GSV [...] Dictated: 04/28/17 1357 Date Transcribed: 05/01/17 0855 Double Cutter: Signed 28-Apr-2017 Foot min 3 Views Result: Comments: See Note; NOTES: [facility] Imaging Services [address] [place] [address] Foot min 3 Views MR#: [id number] Acct: [id number] Name: AMY VALDOVINOS Rep #: [id number] D OB: 1965 F 51 From: Amarjit Britton DO PCP: Marcelle Daley DO Status: REG CLI Study: Foot min 3 Views Date of Exam: 04/28/17 Exam# [id number] Ordering Dr: Marcelle Daley DO STUDY: X-RAY [...] Amarjit Britton DO at 20:42 EDT Tel [phone], Service support , CC: Marcelle Daley DO Double Cutter: Signed 28-Apr-2017 Knee 4 or More Views Result: Comments: See Note; NOTES: [facility] Imaging Services [address] [place] [address] Knee 4 or More Views MR#: [id number] Acct: [id number] Name: AMY VALDOVINOS Rep #: [id number] : 1965 F 51 From: Amarjit Britton DO PCP: Marcelle Daley DO Status: REG CLI Study: Knee 4 or More Views Date of Exam: 04/28/17 Exam# [id number] Ordering Dr: Marcelle Daley DO STUDY: X-RAY [...] Amarjit Britton DO at 20:31 EDT Tel [phone], Service support , CC: Marcelle Daley DO Double Cutter: Signed 23-Mar-2017 Liver Result: Comments: See Note; NOTES: [facility] Imaging Services [address] [place] [address] Liver MR#: [id number] Acct: [id number] Name: AMY VALDOVINOS Rep #: [id number] : [birth year] F 51 From: Jono Dumont MD PCP: Marcelle Daley DO Status: REG CLI Study: Liver Date of Exam: 03/23/17 Exam# [id number] Ordering Dr: Marcelle Daley DO STUDY: ABDOMINAL [...] Jono Dumont MD at 8:50 EDT Tel [phone], Service support , CC: Marcelle Daley DO Double Cutter: Signed 31-Aug-2016 Thyroid Result: Comments: See Note; NOTES: [facility] Imaging Services [address] [place] [address] Verdana 4d Thyroid MR#: [id number] Acct: [id number] Name: AMY VALDOVINOS Rep #: [id number] : 1965 F 51 From: Amarjit Britton DO PCP: Marcelle Daley DO Status: REG CLI Study: Thyroid Date of Exam: 08/31/16 Exam# [id number] Ordering Dr: Marcelle Daley DO STUDY: THYROID [...] Amarjit Britton DO at 23:35 EST Tel [phone], Service support [phone], CC: Marcelle Daley DO Double Cutter: Signed 09-Jun-2016 Bilat Scrn Digital AND CAD Result: Comments: See Note; NOTES: [facility] Imaging Services [address] [place] [address] Verdana 4d Bilat Scrn Digital AND CAD MR#: [id number] Acct: [id number] Name: AMY VALDOVINOS ROOPA Rep #: [id number] : 1965 F 51 From: Jono Dumont MD PCP: Marcelle Daley DO Status: REG CLI Study: Bilat Scrn Digital AND CAD Date of Exam: 06/09/16 Exam# [id number] Ordering Dr: Tl Daley DO MAMMOGRAPHY - [...] delay biopsy of a clinically suspicious abnormality. [id number] Electronically Signed: Jono Dumont MD at 15:05 EDT Tel [phone], Servi ce support [phone], CC: Marcelle Daley DO Double Cutter: Signed 09-Jun-2016 Dexa Bone Density Study (HP) Result: Comments: See Note; NOTES: [facility] Imaging Services [address] [place] [address] Verdana 4d Dexa Bone Density Study (HP) MR#: [id number] Acct: [id number] Name: AMY VALDOVINOS Rep #: [id number] : 1965 F 51 From: Jono Dumont MD PCP: Marcelle Daley DO Status: REG CLI Study: Dexa Bone Density Study (HP) Date of Exam: 06/09/16 Exam# [id number] Ordering Dr: Marcelle Daley DO STUDY: DUAL [...] Jono Dumont MD at 8:21 EDT Tel [phone], Service support [phone], CC: Marcelle Daley DO Double Cutter: Signed 17-May-2016 Shoulder min 2 Views Result: Comments: See Note; NOTES: [facility] Imaging Services [address] [place] [address] Verdana 4d Shoulder min 2 Views MR#: [id number] Acct: [id number] Name: AMY VALDOVINOS Josephine p #: [id number] : 1965 F 50 From: Jono Dumont MD PCP: Marcelle Daley DO Status: REG CLI Study: Shoulder min 2 Views Date of Exam: 05/17/16 Exam# [id number] Ordering Dr: Marcelle Daley Y: X-RAY - [...] Dumont MD 06/05/27 at 12:52 EDT Tel [phone], Service support [phone], CC: Marcelle Daley DO Double Cutter: Signed 17-Mar-2016 Foot min 3 Views Result: Comments: See Note; NOTES: [facility] Imaging Services [address] [place] [address] Verdana 4d Foot min 3 Views MR#: [id number] Acct: [id number] Name: AMY VALDOVINOS Rep #: [id number] : 1965 F 50 From: Malcom Emmanuel MD PCP: Marcelle Daley DO Status: REG CLI Study: Foot min 3 Views Date of Exam: 03/17/16 Exam# [id number] Ordering Dr: Marcelle Daley DO STUDY: X-RAY [...] Service support , CC: Marcelle Daley DO Double Cutter: Signed 10-Nov-2015 Chest without Contrast Result: Comments: See Note; NOTES: [facility] Imaging Services [address] [place] [address] Verdana 4d Chest without Contrast MR#: [id number] Acct: [id number] Name: AMY GUILLERMO Rep #: [id number] : 1965 F 50 From: Ismael Mejia DO PCP: Fast DO,Marcelle Status: REG CLI Study: Chest without Contrast Date of Exam: 11/10/15 Exam# [id number] Ordering Dr: Mabel Daley ra, DO ADDENDUM by Ismael Mejia on 11/23/15 at 0952 ADDENDUM ADDENDUM: Review of the soft ti ssues of the supraclavicular regions demonstrate no evidence of lymphadenopathy or other soft tissue abnormality. Electronically Signed: Ismael Mejia DO at 9:52 EDT Tel [phone], Serv ice support [phone], 11/23/15 0952 Date cc: Marcelle Daley DO [...] Ismael Mejia DO at 21:20 EDT Tel [phone], Servic e support [phone], CC: Marcelle Daley DO Double Cutter: Signed 10-Nov-2015 Chest without Contrast Result: Comments: See Note; NOTES: [facility] Imaging Services [address] [place] [address] Verdana 4d Chest without Contrast MR#: [id number] Acct: [id number] Name: AMY GUILLERMO Rep #: [id number] : 1965 F 50 From: Ismael Mejia DO PCP: Marcelle Daley DO Status: REG CLI Study: Chest without Contrast Date of Exam: 11/10/15 Exam# [id number] Ordering Dr: Mabel Daley ra, DO STUDY: [...] Ismael Mejia DO at 21:20 EDT Tel [phone], Service support [phone], CC: Marcelle Daley DO Double Cutter: Signed 10-Nov-2015 Thyroid Result: Comments: See Note; NOTES: [facility] Imaging Services [address] [place] [address] Ozzy 4d Thyroid MR#: [id number] Acct: [id number] Name: AMY VALDOVINOS Rep #: [id number] : 1965 F 50 From: Jono Dumont MD PCP: Marcelle Daley DO Status: REG CLI Study: Thyroid Date of Exam: 11/10/15 Exam# [id number] Ordering Dr: Marcelle Daley DO STUDY: THYROI [...] Jono swann MD at 10:10 EDT Tel [phone], Service support [phone], CC: Marcelle Daley DO Double Cutter: Signed 08-Sep-2015 EKG (18219) Comments: ekg showed normal sinus rhythym, left axis, no acute st/t wave changes lv strain Result: [MEASUREMENTS ANALYSIS] Date of Test: 09/08/2015 12:10:48; Heart Rate: 55; NJ Interval: 164; QRS: 114; QT Interval: 462; Corrected QT Interval (QTc): 454; P Wave Harriman: 34; QRS Wave Harriman: -29; T Wave Axi s: -16; Blood Pressure: 148/98 [ECG DIAGNOSTIC STATEMENTS] Date of Test: 09/08/2015 12:10:48; Summary: Sinus Bradycardia -Left axis. Voltage criteria for LVH (S(V1)+R(V6) exceeds 3.50 mV). -Nonspeci fic ST depression -Seen with left ventricular hypertrophy (strain) or digitalis effect. ABNORMAL 26-May-2015 Bilat Scrn Digital AND CAD Result: Comments: See Note; NOTES: [facility] Imaging Services [address] [place], [place] [address] Breast Imaging Report MR#: [id number] Acct: [id number] Name: AMY VALDOVINOS Rep #: [id number] : 1965 F 50 From: Jono Dumont MD PCP: Marcelle Daley DO Status: REG CLI Study: Bilat Scrn Digital AND CAD Date of Exam: 05/26/15 Exam# [id number] Ordering Dr: Marcelle Daley DO MAMMOGRAPHY - [...] Jono Dumont MD at 15:40 EDT Tel [phone], Service support [phone], CC: Marcelle Daley DO Double Cutter: Signed 18-May-2015 Chest PA and Lateral Result: Comments: See Note; NOTES: [facility] Imaging Services [address] [place] [address] Radiology Report MR#: [id number] Acct: [id number] Name: AMY VALDOVINOS Rep #: [id number] : 1965 F 49 From: Jono Dumont MD PCP: Marcelle Daley DO Status: REG CLI Study: Chest PA and Lateral Date of Exam: 05/18/15 Exam# [id number] Ordering Dr: Vivian Washington STUDY: X-RA Y [...] Jono Dumont MD at 14:19 EDT Tel [phone], Service support [phone], RAD/Chest PA and Lateral IMPRESSION: No acute abnormality is seen. Electronically Signed: Jono Dumont MD at 14:19 EDT Tel [phone], Service support [phone], CC: Vivian Washington; Marcelle Daley DO Double Cutter: Signed 15-Jan-2015 Chest PA and Lateral Result: Comments: See Note; NOTES: [facility] Imaging Services [address] [place] [address] Radiology Report MR#: [id number] Acct: [id number] Name: AMY VALDOVINOS Rep #: [id number] : 1965 F 49 From: Shine Sawyer MD PCP: Marcelle Daley DO Status: REG CLI Study: Chest PA and Lateral Date of Exam: 01/15/15 Exam# [id number] Ordering Dr: Jing Harrison DO STUDY : [...] MD at 23:41 EDT , Service support [phone], RAD/Chest PA and Lateral IMPRESSION: Normal x-ray examination of the chest. Electronically Signed: Shine Sawyer MD at 23:41 E DT , Service support [phone], CC: Marcelle Daley DO; Jing Harrison DO Double Cutter: Signed 15-Jan-2015 Inhaler Demo (55747) Result: Comments: I instructed pt to use inhaler, then she redemonstrated the technique back to me. 15-Jan-2015 Spirometry (64998) Comments: obsrtuction present Result: 29-Oct-2014 Abdomen WITH and W/O Contrast Result: Comments: See Note; NOTES: [facility] Imaging Services [address] [place] [address] MRI Report MR#: [id number] Acct: [id number] Name: AMY VALDOVINOS Rep #: [id number] : 1965 F 49 From: Heavenly Rojas MD PCP: Marcelle Daley DO Status: REG CLI Study: Abdomen WITH and W/O Contrast Date of Exam: 10/29/14 Exam# [id number] Ordering Dr: Stanton Caal MD STUDY: M [...] at 1 1:15 EDT , Service support [phone], CC: Marcelle Daley DO; Stanton Caal MD Double Cutter: Signed 23-Jun-2014 Esophagus Only Result: Comments: See Note; NOTES: [facility] Imaging Services [address] [place] [address] Radiology Report MR#: [id number] Acct: [id number] Name: AMY VALDOVINOS Rep #: [id number] : 1965 F 49 From: Jono Dumont MD PCP: Status: REG CLI Study: Esophagus Only Date of Exam: 06/23/14 Exam# [id number] Ordering Dr: Jing Harrison DO STUDY: X-RAY [...] Jono Dumont MD at 9:21 EST Tel [phone], Service support , RAD/Esophagus Only IMPRESSION: Small sliding hiatal hernia with no evidence of gastroesophageal reflux. Electronically Signed: Jono Dumont MD at 9:21 EST Tel [phone], Service support [phone], CC: Jing Harrison DO Double Cutter: Signed 23-Jun-2014 Thyroid Result: Comments: See Note; NOTES: [facility] Services [address] [place] [address] Ultrasound Report MR#: [id number] Acct: [id number] Name: AMY VALDOVINOS Rep #: [id number] : 1965 F 49 From: Jono Dumont MD PCP: Status: REG CLI Study: Thyroid Date of Exam: 06/23/14 Exam# [id number] Ordering Dr: Jing Harrison DO STUDY: THYROID [...] Jono Dumont MD at 15:38 EST Tel [phone], Service support [phone], C C: Jing Harrison DO Double Cutter: Signed 30-Nov-2013 Abdomen/Pelvis WITH Contrast Result: Comments: See Note; NOTES: [facility] Imaging Services [address] [place] [address] CAT Scan Report MR#: [id number] Acct: [id number] Name: AMY VALDOVINOS Rep #: [id number] : 1965 F 48 From: Jesse Carrington MD PCP: Marcelle Daley DO Status: REG CLI Study: Abdomen/Pelvis WITH Contrast Date of Exam: 11/30/13 Exam# [id number] Ordering Dr: Vivian Washington STUDY: CT ABDOMEN [...] Dr. Iglesia Lee M.D.; Stanton Caal MD Double Cutter: Signed 26-Nov-2013 Kidney and Bladder Result: Comments: See Note; NOTES: [facility] Imaging Services [address] [place] [address] Ultrasound Report MR#: [id number] Acct: [id number] Name: AMY VALDOVINOS Rep #: [id number] : 1965 F 48 From: Jono Dumont MD PCP: Marcelle Daley DO Status: REG CLI Study: Kidney and Bladder Date of Exam: 11/26/13 Exam# [id number] Ordering Dr: Vivian Washington STUDY: RENAL ULTRASOUND [...] at 12:56 EDT Tel , Service support [phone], CC: Vivian Washington; Marcelle Daley DO Double Cutter: Signed 31-May-2013 Knee 4 or More Views Result: Comments: See Note; NOTES: [facility] Imaging Services [address] [place] [address] Radiology Report MR#: [id number] Acct: [id number] Name: AMY VALDOVINOS Rep #: [id number] : 1965 F 48 From: Jono Dumont MD PCP: Status: REG CLI Study: Knee 4 or More Views Date of Exam: 05/31/13 Exam# [id number] Ordering Dr: Vivian Washington STUDY: X-RAY - [...] May 31, 2013 at 1:16:23 PM EDT [phone] Electronically Signed GP/GP If you are the referring physician and would like to consult with the radiologist w ho provided this interpretation, please contact Jono Dumont M.D. at [phone]. If this radiologist is unavailable, you will be directed to another radiologist to assist. If you are a veronica ent with a question regarding this report, please contact your referring physician directly. Professional Interpretation Provided By: [employer], Phone , These docum ents contain legally [...] destruction of these documents. 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 Status: Active Smoking Status Name Dates Details Never smoker Vital Signs Date Test Result Details 21-Mts-789744:04 Temperature 98 f Comments: Method: Temporal Pulse [...] kg/m2 Body Surface Area Calculated 2.19 m2 29-Fhy-465554:16 Temperature 97.5 f Comments: Method: Temporal Pulse [...] kg/m2 Body Surface Area Calculated 2.14 m2 38-Tnu-414770:45 Temperature 97.2 f Comments: Method: Temporal Pulse [...] kg/m2 Body Surface Area Calculated 2.25 m2 09-Iyb-890127:00 Temperature 98.4 f Comments: Method: Oral Pulse [...] 2.21 m2 Results Date Description Value Details 09-Hzh-248459:57 URINE KENROY CULTURE-IDENTIFICATN Comments: PATIENT NOT FASTINGPERFORMED BY: [facility] [facility] [id number] Information: SRC:EMILY (40219) Result 1 MUG (Normal) Comments: Mixed urogenital flora1,000 Colonies/mL Urine Culture,Comprehensive Final report (Normal) 17-Ylp-888688:05 Urinalysis, Office (94877) UA - LEUKOCYTE ESTERASE Negative (Normal) UA - NITRITE Negative (Normal) URINE UROBILINGN JUAN TIMED Normal mg/dL (Normal) UA - PROTEIN Negative mg/dL (Normal) UA - PH 6 (Abnormal) UA - BLOOD Negative (Normal) UA - SPECIFIC GRAVITY 1.010 (Normal) UA - KETONES Negative mg/dL (Normal) UA - BILIRUBIN Negative (Normal) UA - GLUCOSE Negative (Normal) 2-Ezb-198668:26 Free K+L Lt Chains,Qn,S Comments: PATIENT NOT FASTINGPERFORMED BY: [facility] [facility] [address] [id number]; appt 08/20 [place]/Lambda Ratio,S 1.10 (Normal) Range: 0.26-1.65 Free Lambda Lt Chains,S 10.6 mg/L (Normal) Range: 5.7-26.3 Free [place] Lt Chains,S 11.7 mg/L (Normal) Range: 3.3-19.4 Please note SPRCS (Normal) Comments: PATIENT NOT FASTINGPERFORMED BY: [facility] [facility] [id number] :26 Comments: We have received your request for additional testing or testverification. You will be notified if we are unable to processyour request. Written Authorization WAR (Normal) Comments: PATIENT NOT FASTINGPERFORMED BY: [facility] [facility] [address] [id number] :26 Comments: Written Authorization Received.Authorization received from Written Request [id number] by Greta Milligan :26 urine immunofixation (22053) Comments: PATIENT NOT FASTINGPERFORMED BY: [facility] [facility] [address] [id number] DIANNA Interpretation:U UPEIP (Normal) Comments: No monoclonality detected. :26 serum immunofixation (54012) Comments: PATIENT NOT FASTINGPERFORMED BY: [facility] [facility] [address] [id number] Immunoglobulin M, Qn, Serum 42 mg/dL (Normal) Range: 26-217 Immunoglobulin A, Qn, Serum 405 mg/dL (Abnormal) Range: 87-352 Immunoglobulin G, Qn, Serum 904 mg/dL (Normal) Range: 700-1600 Immunofixation Result, Serum IFEAL (Normal) Comments: Immunofixation shows IgA monoclonal protein with lambda light chainspecificity. 39-Rpj-719629:39 RHEUMATOID FACTOR-QUANT Comments: send copy to Dr. Evelio Kaur [phone]; A courtesy copy of this report has been sent [phone].PATIENT NOT FASTINGPERFORMED BY: [facility] [id number] (36074) RA Latex Turbid. <10.0 {IU/mL} (Normal) Range: 0.0-13.9 :39 IMMUNOFIXATION, SERUM (63573) Comments: send copy to Dr. Evelio Kaur [phone]; A courtesy copy of this report has been sent [phone].PATIENT NOT FASTINGPERFORMED BY: [facility] [id number] remington Information: FX DR MEIER [phone] Immunoglobulin M, Qn, Serum 43 mg/dL (Normal) Range: 26-217 Immunoglobulin A, Qn, Serum 356 mg/dL (Abnormal) Range: 87-352 Immunoglobulin G, Qn, Serum 969 mg/dL (Normal) Range: 700-1600 Immunofixation Result, Serum IFEAL (Normal) Comments: Immunofixation shows IgA monoclonal protein with lambda light chainspecificity. :39 HIV-1 ANTIBODY (36696) Comments: send copy to Dr. Evelio Kaur [phone]; A courtesy copy of this report has been sent [phone].PATIENT NOT FASTINGPERFORMED BY: Mobii[address] [facility] [id number] HIV Screen 4th Generation wRfx Non Reactive (Normal) :39 HEPATITIS C ANTIBODY (48409) Comments: send copy to Dr. Evelio Kaur [phone]; A courtesy copy of this report has been sent [phone].PATIENT NOT FASTINGPERFORMED BY: [employer] [facility] [id number] Hep C Virus Ab <0.1 {s/co_ratio} (Normal) Range: 0.0-0.9 Comments: Negative: < 0.8 Indeterminate: 0.8 - 0.9 Positive: > 0.9 . The CDC recommends that a positive HCV antibody result be followed up with a HCV Nucleic Acid Amplification test (938345). :39 FOLIC ACID SERUM (53873) Comments: send copy to Dr. Evelio Kaur [phone]; A courtesy copy of this report has been sent [phone].PATIENT NOT FASTINGPERFORMED BY: [employer] [place] [id number] Folate (Folic Acid), Serum 14.3 ng/mL (Normal) Comments: A serum folate concentration of less than 3.1 ng/mL isconsidered to represent clinical deficiency. :39 ANTIEXTARACT NUCLEAR AG 6338 Comments: send copy to Dr. Evelio Kaur [phone]; A courtesy copy of this report has been sent [phone].PATIENT NOT FASTINGPERFORMED BY: [facility] [id number] (99591) Up Antibodies <0.2 {AI} (Normal) Range: 0.0-0.9 SPONGE DIVER Antibodies <0.2 {AI} (Normal) Range: 0.0-0.9 :39 LOLITA (ANTINUCLEAR ANTIBODY) Comments: send copy to Dr. Evelio Kaur [phone]; A courtesy copy of this report has been sent [phone].PATIENT NOT FASTINGPERFORMED BY: [facility] [id number] (98426) LOLITA Direct Negative (Normal) :13 Vitamin B-12 (cyanocobalamin) Comments: PATIENT WAS FASTINGPERFORMED BY: Mobii63[facility]Psych[facility] [id number] (86194) Vitamin B12 341 pg/mL (Normal) Range: 232-1245 :13 CBC with auto diff (92963) Comments: PATIENT WAS FASTINGPERFORMED BY: [facility]CoSaint [facility] at SussexMcurpp[address] [facility] [id number]; appt 07/27 Immature Grans (Abs) 0.0 {x10E3/uL} [...] PANEL, COMPREHENSIVE Comments: PATIENT WAS FASTINGPERFORMED BY: LabCoSaint [facility]'s Hospital at SussexLggyvy8430 [facility] [id number] (89854) ALT (SGPT) 19 [iU]/L (Normal) Range: 0-32 [...] Glucose 80 mg/dL (Normal) Range: 65-99 25-Jul-20189:13 HEORK-SESLHNTUOOZ-IKBXR (96098) Comments: PATIENT WAS FASTINGPERFORMED BY: [employer] Lxfwvt0[address] [facility] [id number] AFP, Serum, Tumor Marker 3.6 ng/mL (Normal) Range: 0.0-8.3 Comments: [employer] ECLIA methodology 79-Naz-261005:05 URINE KENROY CULTURE-IDENTIFICATN Comments: PATIENT NOT FASTINGPERFORMED BY: PasswordBankSaint Clare's Hospital at SussexMmscxb0059 [facility] [id number] Information: SRC:UC (96983) Result 1 MUG (Normal) Comments: Mixed urogenital flora1,000 Colonies/mL Urine Culture,Comprehensive Final report (Normal) 12-Wwv-277945:56 Urinalysis, Office (06188) UA - LEUKOCYTE ESTERASE Trace (Normal) UA - NITRITE Negative (Normal) URINE UROBILINGN JUAN TIMED Normal mg/dL (Normal) UA - PROTEIN Trace mg/dL (Normal) UA - PH 5 (Abnormal) UA - BLOOD Negative (Normal) UA - SPECIFIC GRAVITY 1.030 (Abnormal) UA - KETONES Negative mg/dL (Normal) UA - BILIRUBIN Small (Normal) UA - GLUCOSE Negative (Normal) :28 CBC, PLATELETS & AUT DIFF Comments: PATIENT WAS FASTINGPERFORMED BY: [facility] Xrotpd11[address] [facility] [id number] (56409) Immature Grans (Abs) 0.0 {x10E3/uL} (Normal) Range: [...] 3.77-5.28 WBC 6.8 {x10E3/uL} (Normal) Range: 3.4-10.8 16-Lrs-419459:28 VITAMIN B-12 (CYANOCOBALAMIN) Comments: PATIENT WAS FASTINGPERFORMED BY: LabCoSaint [facility]'s Hospital at SussexXxhlno98[address] [facility] [id number] (31755) Vitamin B12 413 pg/mL (Normal) Range: 232-1245 :28 Vitamin D Hydroxy (94044) Comments: PATIENT WAS FASTINGPERFORMED BY: [facility] Fgudwu9075 [facility] [id number] Vitamin D, 25-Hydroxy 52.6 ng/mL (Normal) Range: 30.0-100.0 Comments: Vitamin D deficiency has been defined by the [place] ofMedicine and an Endocrine Society practice guideline as alevel of serum 25-OH vitamin D less than 20 ng/mL (1,2).The Endocrine Society went on to further define vitamin Dinsufficiency as a level between 21 and 29 ng/mL (2).1. IOM ([place] of Medicine). 2010. Dietary reference intakes for calcium and D. [place]: The National Academies Press.2. Myla MF, Javier STUART, Panfilo MANN, et al. Evaluation, treatment, and prevention of vitamin D deficiency: an Endocrine Society clinical practice guideline. JCEM. 2010; 96(7):1911-30. 62-Zcw-649348:28 LIPID PANEL (86086) Comments: PATIENT WAS FASTINGPERFORMED BY: [facility]Formerly [facility] [facility] [id number] LDL/HDL Ratio 1.3 {ratio} (Normal) Range: 0.0-3.2 Comments: LDL/HDL Ratio Men Women 1/2 Avg.Risk 1.0 1.5 Av g.Risk 3.6 3.2 2X Avg.Risk 6.2 5.0 3X Avg.Risk 8.0 6.1 LDL Cholesterol Calc 51 mg/dL (Normal) Range: 0-99 VLDL Cholesterol [place] 11 mg/dL (Normal) Range: 5-40 HDL Cholesterol 38 mg/dL (Abnormal) Triglycerides 55 mg/dL (Normal) Range: 0-149 Cholesterol, Total 100 mg/dL (Normal) Range: 100-199 88-Abt-538280:38 HgA1C , Office (38179) HgA1C , Office 6.1 % (Normal) Range: 4.6 - 7.1 :28 HGB A1C (12778) Comments: PATIENT WAS FASTINGPERFORMED BY: MapkinSaint Clare's Hospital at SussexSjedmb5518 [facility] [id number] Hemoglobin A1c 5.6 % (Normal) Range: 4.8-5.6 Comments: . Prediabetes: 5.7 - 6.4 Diabetes: >6.4 Glycemic control for adults with diabetes: <7.0 :28 BFCNB-AYEZMURPJZT-FXWPU (95322) Comments: PATIENT WAS FASTINGPERFORMED BY: MapkinSaint Clare's Hospital at SussexPkqcjk6[address] [facility] [id number] AFP, Serum, Tumor Marker 3.6 ng/mL (Normal) Range: 0.0-8.3 Comments: Ozzie ECLIA methodology :28 MICROALBUMIN: CREATININE RATIO Comments: PATIENT WAS FASTINGPERFORMED BY: [employer] Sfxoni[address] [facility] [id number] (76607) AND (26690) Alb/Creat Ratio 4.1 {mg/g_creat} (Normal) Range: 0.0-30.0 Albumin, Urine 5.8 ug/mL (Normal) Creatinine, Urine 139.9 mg/dL (Normal) :28 METABOLIC PANEL, COMPREHENSIVE Comments: PATIENT WAS FASTINGPERFORMED BY: MapkinSaint Clare's Hospital at SussexZdzdoi7[address] [facility] [id number]; review at 05/07 appt (59500) ALT (SGPT) 19 [iU]/L (Normal) Range: 0-32 [...] mg/dL (Normal) Range: 65-99 23-Jan-20188:21 LIPID PANEL (85731) Comments: PATIENT WAS FASTINGPERFORMED BY: Mobii6370 [facility] [id number] LDL/HDL Ratio 1.6 {ratio} (Normal) Range: 0.0-3.2 [...] Range: 100-199 23-Jan-20188:21 CBC W/AUTO DIFF WBC (94593) Comments: PATIENT WAS FASTINGPERFORMED BY: Mobii6370 [facility] [id number]; review on 01/31 Immature Grans (Abs) 0.0 [...] PANEL, COMPREHENSIVE Comments: PATIENT WAS FASTINGPERFORMED BY: LabCoSaint [facility]'s Hospital at SussexKcfakt0650 [facility] [id number] (85811) ALT (SGPT) 18 [iU]/L (Normal) Range: 0-32 [...] 6-24 Glucose 98 mg/dL (Normal) Range: 65-99 63-Zdy-035933:22 TSH (92623) Comments: PATIENT NOT FASTINGPERFORMED BY: Mobii6370 [place] [facility]At[facility] [id number] TSH 1.150 {uIU/mL} (Normal) Range: 0.450-4.500 14-Clw-240646:22 SED RATE ERYTHROCYTE (47613) Comments: PATIENT NOT FASTINGPERFORMED BY: [facility] Ublsbe8809 [place] [facility] [id number] Sedimentation Rate-Westergren 8 mm/h (Normal) Range: 0-40 27-Zbj-190173:22 C-REACTIVE PROTEIN (72510) Comments: PATIENT NOT FASTINGPERFORMED BY: [facility] Fnjnqt9543 [place] [facility] [place] [id number] C-Reactive Protein, Quant 2.5 mg/L (Normal) Range: 0.0-4.9 85-Xyx-433425:22 LOLITA (ANTINUCLEAR ANTIBODY) Comments: PATIENT NOT FASTINGPERFORMED BY: [employer] Lab9+rp Xfryym8877 [place] [facility] [place] [id number] (61605) LOLITA Direct Negative (Normal) 88-Pup-444909:22 VITAMIN B-12 (CYANOCOBALAMIN) Comments: PATIENT NOT FASTINGPERFORMED BY: [employer] Lvixyn[address] [facility] [id number] (76411) Vitamin B12 340 pg/mL (Normal) Range: 232-1245 46-Dvb-543717:22 IRON (39857) Comments: PATIENT NOT FASTINGPERFORMED BY: [facility] Lddvvm[address] [facility] [id number] Iron, Serum 57 ug/dL (Normal) Range: 27-159 14-Clh-710626:22 FERRITIN (14080) Comments: PATIENT NOT FASTINGPERFORMED BY: Lab[facility]+ Xyxzrg2[address] [facility] [id number] Ferritin, Serum 220 ng/mL (Abnormal) Range: 15-150 77-Vtq-868285:27 Albumin/Creatinine Comments: PATIENT WAS FASTINGPERFORMED BY: [employer] Ekkqzz97[address] [facility] [id number] BY: MapkinCody [place] [address] [facility] [id number] Ratio,Urine Alb/Creat Ratio 5.5 {mg/g_creat} (Normal) Range: 0.0-30.0 Albumin, Urine 9.6 ug/mL (Normal) Creatinine, Urine 176.1 mg/dL (Normal) 22-Lgn-241942:27 Vitamin D Hydroxy Comments: PATIENT WAS FASTINGPERFORMED BY: [employer] Yvhtwh[address] [facility] [id number] BY: Mapkin[address] [id number] (16349) Vitamin D, 25-Hydroxy 44.1 ng/mL (Normal) Range: 30.0-100.0 Comments: Vitamin D deficiency has been defined by the [place] of[place]icine and an Endocrine Society practice guideline as alevel of serum 25-OH vitamin D less than 20 ng/mL (1,2).The Endocrine Society went on to further define vitamin Dinsufficiency as a level between 21 and 29 ng/mL (2).1. IOM ([place] of Medicine). 2010. Dietary reference intakes for calcium and D. [place]: The National Academies Press.2. Myla MF, Javier NC, Panfilo MANN, et al. Evaluation, treatment, and prevention of vitamin D deficiency: an Endocrine Society clinical practice guideline. JCEM. 2010; 96(7):1911-30. 25-Ohx-920135:27 HGB A1C (47288) Comments: PATIENT WAS FASTINGPERFORMED BY: PasswordBank Etjzhl[address] [facility] [id number] BY: Stageit[address] [id number] Hemoglobin A1c 5.7 % (Abnormal) Range: 4.8-5.6 Comments: . Pre-diabetes: 5.7 - 6.4 Diabetes: >6.4 Glycemic control for adults with diabetes: <7.0 76-Bgj-865251:27 QMSVE-LGDHWJFWNLM-WGRXY (17595) Comments: PATIENT WAS FASTINGPERFORMED BY: PasswordBank Aelvok[address] [facility] [id number] BY: Stageit[address] [id number] AFP, Serum, Tumor Marker 4.0 ng/mL (Normal) Range: 0.0-8.3 Comments: Ozzie ECLIA methodology 41-Kar-144515:27 METABOLIC PANEL, Comments: PATIENT WAS FASTINGPERFORMED BY: [employer] Vhwima[address] [facility] [id number] BY: Stageit[address] [id number] [facility] (14576) ALT (SGPT) 21 [iU]/L (Normal) Range: 0-32 [...] Glucose, Serum 84 mg/dL (Normal) Range: 65-99 09-Ybe-532985:27 CBC with auto diff Comments: PATIENT WAS FASTINGPERFORMED BY: CB [facility] Prlkqy[address] [facility] [id number] BY: BN [facility] Qhesuhqxwz8617 [facility] [id number] (28554) Immature Grans (Abs) 0.0 {x10E3/uL} (Normal) Range: [...] 3.77-5.28 WBC 7.7 {x10E3/uL} (Normal) Range: 3.4-10.8 98-Wec-269062:27 LIPID PANEL (48095) Comments: PATIENT WAS FASTINGPERFORMED BY: [employer] [facility] [id number] BY: Mapkin[address] [id number] LDL/HDL Ratio 1.5 {ratio_units} (Normal) Range: 0.0-3.2 Comments: LDL/HDL Ratio Men Women 1/2 Avg.Risk 1.0 1.5 Av g.Risk 3.6 3.2 2X Avg.Risk 6.2 5.0 3X Avg.Risk 8.0 6.1 LDL Cholesterol Calc 69 mg/dL (Normal) Range: 0-99 VLDL Cholesterol [place] 17 mg/dL (Normal) Range: 5-40 HDL Cholesterol 46 mg/dL (Normal) Triglycerides 85 mg/dL (Normal) Range: 0-149 Cholesterol, Total 132 mg/dL (Normal) Range: 100-199 41-Gnf-637099:27 IGA/IGD/IGG/IGM-EACH (59006) Comments: PATIENT WAS FASTINGPERFORMED BY: [employer] [facility] [id number] BY: Mapkin[address] [id number] Immunoglobulin E, Total 18 {IU/mL} (Normal) Range: 0-100 Immunoglobulin M, Qn, Serum 43 mg/dL (Normal) Range: 26-217 Immunoglobulin A, Qn, Serum 332 mg/dL (Normal) Range: 87-352 Immunoglobulin G, Qn, Serum 848 mg/dL (Normal) Range: 700-1600 4-Ffg-129684:23 METABOLIC PANEL, COMPREHENSIVE Comments: PATIENT NOT FASTINGPERFORMED BY: LabCoSaint [facility] Hospital at SussexGbnbfa3888 [facility] [id number] (29930) ALT (SGPT) 16 [iU]/L (Normal) Range: 0-32 [...] Glucose, Serum 92 mg/dL (Normal) Range: 65-99 70-Unt-788725:10 RUBEOLA IgG (31106) Comments: PATIENT NOT FASTINGPERFORMED BY: LabCoSaint [facility]'s Hospital at SussexGnbsvs4336 [facility] [id number] Rubeola Ab, IgG 44.9 AU/mL (Normal) Comments: Negative <25.0 Equivocal 25.0 - 29.9 Positive >29.9 Presence of antibodies to Rubeola is presumptive evidence of immunity except when acute infection is suspected. :10 RUBELLA IgG (84422) Comments: PATIENT NOT FASTINGPERFORMED BY: [address] [id number] Rubella Antibodies, IgG 17.40 {index} (Normal) Comments: Non-immune <0.90 Equivocal 0.90 - 0.99 Immune >0.99 :10 MUMPS IgG (27643) Comments: PATIENT NOT FASTINGPERFORMED BY: [address] [id number] Mumps Abs, IgG >300.0 AU/mL (Normal) Comments: Negative <9.0 Equivocal 9.0 - 10.9 Positive >10.9 A positive result genera lly indicates past exposure to Mumps virus or previous vaccination. 5-Hyv-479664:23 HEPATITIS C ANTIBODY (67631) Comments: PATIENT NOT FASTINGPERFORMED BY: [address] [id number] Hep C Virus Ab 0.1 {s/co_ratio} (Normal) Range: 0.0-0.9 Comments: Negative: < 0.8 Indeterminate: 0.8 - 0.9 Positive: > 0.9 . The CDC recommends that a positive HCV antibody result be followed up with a HCV Nucleic Acid Amplification test (189724). :07 AFP, Tumor Marker Comments: Is Patient ? [facility] (refer to report for specific site)refer to report for address and phone number AFP TUMOR 2253 3.9 ng/mL (Normal) Range: 0.0-8.3 Comments: Ozzie ECLIA methodologyPerformed at: [address] [id number] Director: Harjinder Houston PhD, Phone: [phone] 45-Cyd-394665:07 Comprehensive Metabolic Profil Comments: [facility] Mcjtyqjxxv65[address] [place], [address] GAP 6 (Normal) Range: 5-15 CO2 27.0 [...] 7-18 GLU 80 mg/dL (Normal) Range: 70-110 07-Lgv-175218:07 Hemoglobin A1c Comments: [facility] Nhyudaphpa7962 [facility] Xin. [place], [place], [id number] HGB A1C 5.9 % (Normal) Range: 4.2-6.3 57-Ade-152679:07 Lipid Profile Comments: [facility] Qlvoynbicx6692 [facility] Tony. [place], [place], [id number] VLDL 18 mg/dL (Normal) Range: 5-40 LDL [...] 200-240 mg/dL Borderline >240 mg/dL High Risk 24-Eye-574499:07 Thyroid Stim Hormone (TSH) Comments: [facility] Fpvfjrszon7395 [facility] [address] [place], [place], [address] TSH 1.11 {uIU/mL} (Normal) Range: 0.358-3.74 :07 Vitamin B12 401 pg/mL (Normal) Comments: [facility] Hnvfwtygwp[address] [place], [place], [address] Range: 211-911 65-Yqh-789253:07 Vitamin D,25 Hydroxy Comments: [facility] Uakgkwxjls8318 [facility] [address] [place], [place], [address] Vitamin D 25-OH 37.7 ng/mL (Normal) Comments: Vitamin D 25(OH) Status Range Deficiency <20 ng/mL (50nmol/L) Insuffciency 20 - 30 ng/mL (50 - 75 nmol/L) Sufficiency 30 - 100 ng/mL (75 - 250 nmol/L) Toxicity >100 ng/mL (>250 nmol/L) 68-Vbo-474604:54 TSH (37825) Comments: PATIENT WAS FASTINGPERFORMED BY: Mobii6370 [facility] Centerin [place] [id number] TSH 1.440 {uIU/mL} (Normal) Range: 0.450-4.500 65-Kme-941142:54 VITAMIN B-12 (CYANOCOBALAMIN) Comments: PATIENT WAS FASTINGPERFORMED BY: [employer] Lab9+rp Rwxauc2029 [facility] [place] [id number] (84743) Vitamin B12 273 pg/mL (Normal) Range: 211-946 8-Kpi-865012:47 Vitamin D Hydroxy Comments: PATIENT WAS FASTINGPERFORMED BY: SupplyFrameCody [place] [address] [facility] [id number] BY: MapkinSaint Clare's Hospital at SussexUxrwap8[address] [facility] [id number] (75406) Vitamin D, 25-Hydroxy 29.6 ng/mL (Abnormal) Range: 30.0-100.0 Comments: Vitamin D deficiency has been defined by the [place] ofMedicine and an Endocrine Society practice guideline as alevel of serum 25-OH vitamin D less than 20 ng/mL (1,2).The Endocrine Society went on to further define vitamin Dinsufficiency as a level between 21 and 29 ng/mL (2).1. IOM ([place] of Medicine). 2010. Dietary reference intakes for calcium and D. [place]: The National Academies Press.2. Myla MF, Javier STUART, Panfilo MANN, et al. Evaluation, treatment, and prevention of vitamin D deficiency: an Endocrine Society clinical practice guideline. JCEM. 2010; 96(7):1911-30. 3-Tfm-979764:47 METABOLIC PANEL, Comments: PATIENT WAS FASTINGPERFORMED BY: [employer] Mlwbnrmslb5795 [facility] [id number] BY: PasswordBankSaint Clare's Hospital at SussexNjdscw[address] [facility] [id number] [facility] (78967) ALT (SGPT) 21 [iU]/L (Normal) Range: 0-32 [...] Glucose, Serum 87 mg/dL (Normal) Range: 65-99 4-Kse-380207:47 LIPOPROTEIN, BLD, BY NMR Comments: PATIENT WAS FASTINGPERFORMED BY: BN [facility] Yjeclbescw8353 [facility] [id number] BY: CB [facility] Hbucjl32[address] [facility] [id number] Information: E77941, 472487 (86788) LP-IR Score 69 (Abnormal) Comments: INSULIN RESISTANCE MARKER <--Insulin Sensitive Insulin Resistant--> Percentile in Reference PopulationInsulin Resistance ScoreLP-IR Score Low 25th 50th 75th High <27 27 45 63 >63LP-IR Score is inaccurate if patient is non-fasting. .The LP-IR score is a laboratory developed i [facility] that has beenassociated with insulin resistance [...] were developed and their performance characteristicsdetermined by [employer]. These assays have not been cleared by [...] 1600 - 2000 Very High > 2000 1-Mwf-002245:47 MICROALBUMIN: CREATININE Comments: PATIENT WAS FASTINGPERFORMED BY: [facility] Ykrpwxfznf6007 [facility] [id number] BY: [facility] Hpfarp[address] [facility] [id number] RATIO (64736) AND (41290) Microalb/Creat Ratio 10.3 {mg/g_creat} (Normal) Range: 0.0-30.0 Microalbumin, Urine 16.3 ug/mL (Normal) Creatinine, Urine 157.7 mg/dL (Normal) 2-Ljs-881986:47 HGB A1C (35455) Comments: PATIENT WAS FASTINGPERFORMED BY: Lab9+ Xkqjkrsuwl2646 [facility] [id number] BY: LabFormerly [facility] [facility] [id number] Hemoglobin A1c 6.1 % (Abnormal) Range: 4.8-5.6 Comments: . Pre-diabetes: 5.7 - 6.4 Diabetes: >6.4 Glycemic control for adults with diabetes: <7.0 :4 ASPIRATION (SLIDES ONLY) See Note (Normal) Comments: [facility] Xkrxwuawgc85[address] [place], [place], [address] 5 Comments: Patient: AMY VALDOVINOS : 1965 (51/F) Acct Num: [id number] Phys: Devorah DÍAZ,Richar Unit Num: [id number] Loc: LABSPEC Specimen: [id number] Received: 10/07/16 - 1206 Spec Type: ASPIRATION TISSUES TISSUES: COMMENT The specimen is paucicellular and contains rare benign follicular cells and focal chronic inflammatory cells. Clinical correlation is suggested. CYTOLOGY GROSS Received are eight smears labeled with the patient's name and designated per therequisition as FNA left thyroid. Submitted for staining. 10/07/16 TC:5 CPT: 95497 CYTOLOGY STUDY Slides are reviewed. DIAGNOSIS CYTOLOGY Fine needle aspiration, left thyroid nodule (smears): Negative, consistent with colloid nodule. AM:rg 10/10/16 HEADER OPERATION: Ult rasound-guided fine needle aspiration, left thyroid PRE-OP DIAGNOSIS: Multinodular goiter E04.2 TISSUE SUBMITTED: Fine needle aspiration, left thyroid (8 slides) Signed Enio Madhuri 10/10/16 <signature on file> :56 NFMUO-WSWPQNESAFC-HRBIF (12461) Comments: PATIENT WAS FASTINGPERFORMED BY: Lab[facility]+ Jpilngbvhp2184 [facility] [id number] BY: [facility] [facility] [id number] AFP, Serum, Tumor Marker 3.2 ng/mL (Normal) Range: 0.0-8.3 Comments: Ozzie ECLIA methodology 3-Xfk-470768:56 VITAMIN B-12 (CYANOCOBALAMIN) Comments: PATIENT WAS FASTINGPERFORMED BY: [address] [id number] BY: [place] [address] [facility] [id number] (76160) Vitamin B12 302 pg/mL (Normal) Range: 211-946 8-Kgr-689263:56 Vitamin D Hydroxy Comments: PATIENT WAS FASTINGPERFORMED BY: [address] [id number] BY: [facility] [facility] [id number] (65381) Vitamin D, 25-Hydroxy 25.1 ng/mL (Abnormal) Range: 30.0-100.0 Comments: Vitamin D deficiency has been defined by the [place] ofVan [facility] Hospitalcine and an Endocrine Society practice guideline as alevel of serum 25-OH vitamin D less than 20 ng/mL (1,2).The Endocrine Society went on to further define vitamin Dinsufficiency as a level between 21 and 29 ng/mL (2).1. IOM ([place] of Medicine). 2010. Dietary reference intakes for calcium and D. [place]: The National Academies Press.2. Myla MF, Javier NC, Panfilo MANN, et al. Evaluation, treatment, and prevention of vitamin D deficiency: an Endocrine Society clinical practice guideline. JCEM. 2010; 96(7):1911-30. 1-Oup-225392:56 CBC W/AUTO DIFF WBC Comments: PATIENT WAS FASTINGPERFORMED BY: [address] [id number] BY: [facility] [facility] [id number] (20636) Immature Grans (Abs) 0.0 {x10E3/uL} (Normal) Range: [...] 3.77-5.28 WBC 9.9 {x10E3/uL} (Normal) Range: 3.4-10.8 5-Oxq-274211:56 METABOLIC PANEL, Comments: PATIENT WAS FASTINGPERFORMED BY: [facility] [address] [id number] BY: [facility] Gcmjam[address] [facility] [id number] COMPREHENSIVE (82074) ALT (SGPT) 18 [iU]/L (Normal) Range: 0-32 [...] Glucose, Serum 89 mg/dL (Normal) Range: 65-99 3-Sgf-490391:56 LIPOPROTEIN, BLD, BY NMR Comments: PATIENT WAS FASTINGPERFORMED BY: BN [facility] [address] [id number] BY: CB [facility] Dizqdw25[address] [facility] [id number] (12536) LP-IR Score 66 (Abnormal) Comments: INSULIN RESISTANCE MARKER <--Insulin Sensitive Insulin Resistant--> Percentile in Reference PopulationInsulin Resistance ScoreLP-IR Score Low 25th 50th 75th High <27 27 45 63 >63LP-IR Score is inaccurate if patient is non-fasting. .The LP-IR score is a laboratory developed i [facility] that has beenassociated with insulin resistance [...] were developed and their performance characteristicsdetermined by [employer]. These assays have not been cleared by [...] 1600 - 2000 Very High > 2000 2-Nln-076394:10 HgA1C , Office (60671) HgA1C , Office 5.8 % (Normal) Range: 4.6 - 7.1 5-Ryq-287751:10 Blood Glucose , Office (41867) Blood Glucose , Office 80 (Normal) 94-Onj-651450:18 Magnesium (09979) Comments: PATIENT NOT FASTINGPERFORMED BY: CB [facility] [address]eol[address] [facility] [id number] Magnesium, Serum 2.3 mg/dL (Normal) Range: 1.6-2.3 :35 [id number] (86150) Comments: PATIENT WAS FASTINGPERFORMED BY: [facility] [address] [place] [id number] AFP, Serum, Tumor Marker 3.0 ng/mL (Normal) Range: 0.0-8.3 Comments: Ozzie ECLIA methodology :35 CBC W/AUTO DIFF WBC Comments: PATIENT WAS FASTINGPERFORMED BY: [facility] [facility] [address] [place] [id number] Information: [id number] (21198) Immature Grans (Abs) 0.0 {x10E3/uL} (Normal) Range: [...] 3.77-5.28 WBC 7.4 {x10E3/uL} (Normal) Range: 3.4-10.8 41-Vse-96908:35 METABOLIC PANEL, COMPREHENSIVE Comments: PATIENT WAS FASTINGPERFORMED BY: Mapkin Gdkesj67[address] [facility] [id number] (58060) ALT (SGPT) 14 [iU]/L (Normal) Range: 0-32 [...] Glucose, Serum 83 mg/dL (Normal) Range: 65-99 70-Wzs-804478:10 CBC W/AUTO DIFF WBC Comments: PATIENT WAS FASTINGPERFORMED BY: [facility]kinSaint [facility] at SussexRtsktd7938 [facility] [id number] Information: [id number], [id number] (55114) Immature Grans (Abs) 0.0 {x10E3/uL} (Normal) Range: [...] 3.77-5.28 WBC 7.1 {x10E3/uL} (Normal) Range: 3.4-10.8 89-Eqw-828747:10 METABOLIC PANEL, COMPREHENSIVE Comments: PATIENT WAS FASTINGPERFORMED BY: LabCoSaint Clare's Hospital at SussexIfiffw5581 [facility] [id number] (05888) ALT (SGPT) 14 [iU]/L (Normal) Range: 0-32 [...] Glucose, Serum 79 mg/dL (Normal) Range: 65-99 73-Mip-949438:10 TSH (94409) Comments: PATIENT WAS FASTINGPERFORMED BY: uFaber Dmilzu9241 [facility] [id number] TSH 0.891 {uIU/mL} (Normal) Range: 0.450-4.500 14-Qcy-950386:10 LIPID PANEL (29908) Comments: PATIENT WAS FASTINGPERFORMED BY: uFaber Ivwpea38[address] [facility] [id number] LDL/HDL Ratio 2.0 {ratio_units} Range: 0.0-3.2 (Normal) [...] ASPIRATION (SLIDES ONLY) See Note (Normal) Comments: [facility] Npsmsrbkac[address] [place], [address] :22 Comments: Patient: AMY VALDOVINOS : 1965 (50/F) Acct Num: [id number] Phys: Devorah DÍAZ,Richar Unit Num: [id number] Loc: LABSPEC Specimen: [id number] Received: 12/15/15 - [...] Signed Alexis Levi 12/16/15 <signature on file> 71-Yap-841569:19 TSH (51217) Comments: PATIENT NOT FASTINGPERFORMED BY: StageitCo Oxjqra86[address] [facility] [id number] TSH 1.250 {uIU/mL} (Normal) Range: 0.450-4.500 65-Adj-241633:19 T4, FREE (THYROXINE) Comments: PATIENT NOT FASTINGPERFORMED BY: [facility] Jqxrfi9[address] [facility] [id number] Information: [id number] (90492) T4,Free(Direct) 1.12 ng/dL (Normal) Range: 0.82-1.77 :19 T3, FREE (TRIDOTHYRONINE) (88678) Comments: PATIENT NOT FASTINGPERFORMED BY: CB [facility] Jmqlyl7556 [place] [facility] [place] [id number] Triiodothyronine,Free,Serum 3.3 pg/mL (Normal) Range: 2.0-4.4 15-Isp-298718:15 SED RATE ERYTHROCYTE (06477) Comments: PATIENT NOT FASTINGPERFORMED BY: CB [facility] Lbruem52[address] [facility] [id number] Sedimentation Rate-Westergren 6 mm/h (Normal) Range: 0-40 78-Eoo-013169:15 C-REACTIVE PROTEIN (56832) Comments: PATIENT NOT FASTINGPERFORMED BY: CB [facility] Ffuzun[address] [facility] [id number] C-Reactive Protein, Quant 3.9 mg/L (Normal) Range: 0.0-4.9 25-Epf-195538:15 METABOLIC PANEL, COMPREHENSIVE Comments: PATIENT NOT FASTINGPERFORMED BY: BumpTop [facility] Vgjthn54[address] [facility] [id number] (71481) ALT (SGPT) 35 [iU]/L (Abnormal) Range: 0-32 [...] Glucose, Serum 76 mg/dL (Normal) Range: 65-99 29-Xyg-378411:15 EBV Panel (91772) Comments: PATIENT NOT FASTINGPERFORMED BY: MeterHero70 [facility] [id number] Interpretation: SPRCS (Normal) Comments: EBV Interpretation Chart [...] <36.0 Equivocal 36.0 - 43.9 Positive >43.9 45-Egj-566727:15 CBC, PLATELETS & MANUAL Comments: PATIENT NOT FASTINGPERFORMED BY: PasswordBank Ghixxs5677 [facility] [id number] Information: [id number] DIFF (84390) Immature Grans (Abs) 0.0 {x10E3/uL} (Normal) Range: [...] 3.77-5.28 WBC 8.8 {x10E3/uL} (Normal) Range: 3.4-10.8 79-Vej-656341:00 CBC with auto diff Comments: PERFORMED BY: LabCoSaint Clare's Hospital at SussexFdltqp8898 [place] [facility] [id number] Information: NURSE DRAW (40798) Immature Grans (Abs) 0.0 {x10E3/uL} (Normal) Range: [...] 3.77-5.28 WBC 8.6 {x10E3/uL} (Normal) Range: 3.4-10.8 93-Gor-880004:00 METABOLIC PANEL, COMPREHENSIVE Comments: PERFORMED BY: LabCoSaint [facility]'s Hospital at SussexVpizbk3520 [facility] [id number] (81665) ALT (SGPT) 19 [iU]/L (Normal) Range: 0-32 [...] Glucose, Serum 93 mg/dL (Normal) Range: 65-99 02-Icu-764673:00 EXXWL-ODYCMQJTNHM-XSMAM (39313) Comments: PERFORMED BY: [employer] [facility] [id number] AFP, Serum, Tumor Marker 3.2 ng/mL (Normal) Range: 0.0-8.3 Comments: Ozzie ECLIA methodology 98-Nge-698827:28 HgA1C , Office (28512) HgA1C , Office 5.9 % (Normal) Range: 4.6 - 7.1 0-Qao-429322:22 URINE KENROY CULTURE-JUAN COL Comments: PATIENT NOT FASTINGPERFORMED BY: [employer] [facility] [id number] Information: SRC:URC [id number] COUNT (54836) Result 1 NG36 (Normal) Comments: No growth in 36 - 48 hours. Urine Culture,Comprehensive Final report (Normal) 1-Rqz-829302:36 Urinalysis, Office (51854) UA - LEUKOCYTE ESTERASE Small (Normal) UA - NITRITE Negative (Normal) URINE UROBILINGN JUAN TIMED Normal mg/dL (Normal) UA - PROTEIN Negative mg/dL (Normal) UA - PH 6.5 (Normal) UA - BLOOD Negative (Normal) UA - SPECIFIC GRAVITY 1.005 (Normal) UA - KETONES Negative mg/dL (Normal) UA - BILIRUBIN Negative (Normal) UA - GLUCOSE Negative (Normal) :04 CBC W/AUTO DIFF WBC Comments: PATIENT WAS FASTINGPERFORMED BY: LabCoSaint Clare's Hospital at SussexXwpqwh1657 [facility] [id number] Information: [id number] (97388) Immature Grans (Abs) 0.0 {x10E3/uL} (Normal) Range: [...] 3.77-5.28 WBC 8.2 {x10E3/uL} (Normal) Range: 3.4-10.8 47-Kti-568445:04 METABOLIC PANEL, COMPREHENSIVE Comments: PATIENT WAS FASTINGPERFORMED BY: LabCoSaint [facility] at SussexHvijbh4600 [facility] [id number] (97029) ALT (SGPT) 20 [iU]/L (Normal) Range: 0-32 [...] Glucose, Serum 74 mg/dL (Normal) Range: 65-99 35-Vuw-687427:04 LIPID PANEL (37732) Comments: PATIENT WAS FASTINGPERFORMED BY: LabCoSaint Clare's Hospital at SussexFpwftm2510 [facility] [id number]; apt. 05-15-15 LDL/HDL Ratio 2.1 {ratio_units} Range: [...] (Normal) Comments: PATIENT WAS FASTINGPERFORMED BY: [facility] Wkauag30[address] [facility] [id number] 59:38 Marker Range: 0.0-8.3 Comments: Ozzie ECLIA methodology 72-Dff-02259:38 CBC With Differential/Platelet Comments: PATIENT WAS FASTINGPERFORMED BY: [facility] Hfsbwr6[address] [facility] [id number] Information: [id number] Immature Grans (Abs) 0.0 {x10E3/uL} (Normal) Range: [...] Panel (14) Comments: PATIENT WAS FASTINGPERFORMED BY: MeterHero[address] [facility] [id number] ALT (SGPT) 13 [iU]/L (Normal) Range: 0-32 [...] % (Abnormal) Comments: PATIENT WAS FASTINGPERFORMED BY: PasswordBank Vabply[address] [facility] [id number]; f/u on 02/06 38 Range: 4.8-5.6 Comments: . Increased risk for diabetes: 5.7 - 6.4 Diabetes: >6.4 Glycemic control for adults with diabetes: <7.0 :38 Lipid Panel With LDL/HDL Comments: PATIENT WAS FASTINGPERFORMED BY: [employer] Egvzoa74[address] [facility] [id number] Ratio LDL/HDL Ratio 3.1 {ratio_units} (Normal) Range: [...] Randm Ur Comments: PATIENT WAS FASTINGPERFORMED BY: [employer]kin Losult4678 [facility] [id number] Microalb/Creat Ratio 19.0 {mg/g_creat} Range: 0.0-30.0 (Normal) Microalbumin, Urine 23.5 ug/mL (Abnormal) Range: 0.0-17.0 Creatinine, Urine 124.0 mg/dL (Normal) Range: 15.0-278.0 05-Feb-2015 Vitamin D, 25-Hydroxy 32.7 ng/mL (Normal) Comments: PATIENT WAS FASTINGPERFORMED BY: [employer] Jruoeq7345 [facility] [id number] 9:38 Range: 30.0-100.0 Comments: Vitamin D deficiency has been defined by the [place] of[place]icine and an Endocrine Society practice guideline as alevel of serum 25-OH vitamin D less than 20 ng/mL (1,2).The Endocrine Society went on to further define vitamin Dinsufficiency as a level between 21 and 29 ng/mL (2).1. IOM ([place] of Medicine). 2010. Dietary reference intakes for calcium and D. [place]: The National Academies Press.2. Myla MF, Javier STUART, Panfilo MANN, et al. Evaluation, treatment, and prevention of vitamin D deficiency: an Endocrine Society clinical practice guideline. JCEM. 2010; 96(7):1911-30. 56-Lcp-367918:49 Comprehensive Metabolic Profil Comments: STAT CREATININE FOR MRITest performed at:[facility] Kzpzpzyrif[address] [place], [place] [address] ; Darrick GAP 3 (Abnormal) Range: 5-15 [...] 7-18 GLU 82 mg/dL (Normal) Range: 70-110 :49 Hemoglobin A1c Comments: Test performed at:[facility] Rubmzlupsh2700 [facility] [address]. [place], [place] [address] HGB A1C 5.7 % (Normal) Range: 4.2-6.3 66-Xif-505098:49 Lipid Profile Comments: STAT CREATININE FOR MRITest performed at:[facility] Jxfqsitpnx99[address] [place] [address] VLDL 25 mg/dL (Normal) Range: [...] 200-240 mg/dL Borderline >240 mg/dL High Risk 83-Gfe-545009:49 Vitamin D,25 Hydroxy Comments: Test performed at:[facility] Jivkwqckiq30[address] [place], [place] [id number] Vitamin D 25-OH 76.3 ng/mL (Normal) Comments: Vitamin D 25(OH) Status Range Deficiency <20 ng/mL (50nmol/L) Insuffciency 20 - 30 ng/mL (50 - 75 nmol/L) Sufficiency 30 - 100 ng/mL (75 - 250 nmol/L) Toxicity >100 ng/mL (>250 nmol/L) 3-Nck-989664:15 Culture, Urine Comments: Test performed at:[facility] Pxtqjukdvt[address] [place] [address] CUUR See Note (Normal) Comments: Urine CultureORGANISM 1: Mixed Gram Positive OrganismsColony Count 11,000-25,000MIX CONTAM Mixed Contaminants. Submit new specimen if indicated. 1-Zmd-783613:23 Lipid Panel (29911) Comments: PATIENT WAS FASTINGPERFORMED BY: [facility] Nnstsy40[address] [facility] [id number] LDL/HDL Ratio 2.9 {ratio_units} (Normal) Range: 0.0-3.2 [...] Cholesterol, Total 164 mg/dL (Normal) Range: 100-199 8-Znu-739802:23 Metabolic Panel, Comments: PATIENT WAS FASTINGPERFORMED BY: [facility] Njyhnh55[address] [facility] [id number] Information: [id number] Comprehensive (48835) ALT (SGPT) 24 [iU]/L (Normal) Range: 0-32 [...] Glucose, Serum 94 mg/dL (Normal) Range: 65-99 90-Sns-707895:49 CALCIFEDIOL (90224) Comments: PATIENT NOT FASTINGPERFORMED BY: [facility] Xncjlm2290 Nola Cuellar [place] [id number] Vitamin D, 25-Hydroxy 18.9 ng/mL (Abnormal) Range: 30.0-100.0 Comments: Vitamin D deficiency has been defined by the [place] of[place]icine and an Endocrine Society practice guideline as alevel of serum 25-OH vitamin D less than 20 ng/mL (1,2).The Endocrine Society went on to further define vitamin Dinsufficiency as a level between 21 and 29 ng/mL (2).1. IOM ([place] of [place]). 2010. Dietary reference intakes for calcium and D. [place]: The National Academies Press.2. Myla MF, Javier STUART, Panfilo MANN, et al. Evaluation, treatment, and prevention of vitamin D deficiency: an Endocrine Society clinical practice guideline. JCEM. 2010; 96(7):1911-30. 33-Jxh-431257:52 Hemoglobin A1c Comments: Test performed at:[facility] [address] [place] [address] HGB A1C 6.4 % (Abnormal) Range: 4.2-6.3 :52 Lipid Profile Comments: Test performed at:[facility] [address]pe[address] [place] [address] VLDL 35 mg/dL (Normal) Range: 5-40 LDL [...] 200-240 mg/dL Borderline >240 mg/dL High Risk 54-Yce-669742:52 Liver Profile Comments: Test performed at:[facility] Afxgrbzbnx08[address] [place] [address] D BILI 0.10 mg/dL (Normal) Range: 0.00-0.30 T BILI 0.50 mg/dL (Normal) Range: 0.00-4.00 ALT 43 U/L (Normal) Range: 12-78 ALK P 92 U/L (Normal) Range: 50-136 AST 18 U/L (Normal) Range: 15-37 GLOB 3.5 g/dL (Normal) Range: 2.7-4.2 ALB 4.0 g/dL (Normal) Range: 3.4-5.0 T PROT 7.5 g/dL (Normal) Range: 6.4-8.2 61-Roa-541645:50 Serum Creatinine AND GFR Comments: Has pt arrived? YTest performed at:[facility] Siucwwlooi[address] [place] [address] EST GFR - AA 86 mL/min (Normal) EST GFR 71 mL/min (Normal) CREAT,SERUM 0.9 mg/dL (Normal) Range: 0.6-1.0 82-Dza-039988:38 Hepatic Function Panel Comments: PATIENT WAS FASTINGPERFORMED BY: CHUY 1jiajie Ftyteq[address] [facility] [id number] Information: [id number] (7) ALT (SGPT) 36 [iU]/L (Abnormal) Range: 0-32 AST (SGOT) 23 [iU]/L (Normal) Range: 0-40 Alkaline Phosphatase, S 107 [iU]/L (Normal) Range: 39-117 Bilirubin, Direct 0.13 mg/dL (Normal) Range: 0.00-0.40 Bilirubin, Total 0.3 mg/dL (Normal) Range: 0.0-1.2 Albumin, Serum 4.7 g/dL (Normal) Range: 3.5-5.5 Protein, Total, Serum 7.3 g/dL (Normal) Range: 6.0-8.5 01-Jul-2014 Written Authorization WAR (Normal) Comments: PATIENT WAS FASTINGPERFORMED BY: CB Viscose Closures[address] [facility] [id number] 13:38 Comments: Written Authorization Received.Authorization received from GEORGE OSCAR LPN [id number] by Sandrita Onofre 48-Fdl-291694:38 CALCIFEDIOL (72954) Comments: PATIENT WAS FASTINGPERFORMED BY: [facility] [facility] [id number] Vitamin D, 25-Hydroxy 30.1 ng/mL (Normal) Range: 30.0-100.0 Comments: Vitamin D deficiency has been defined by the [place] of[place] and an Endocrine Society practice guideline as alevel of serum 25-OH vitamin D less than 20 ng/mL (1,2).The Endocrine Society went on to further define vitamin Dinsufficiency as a level between 21 and 29 ng/mL (2).1. IOM ([place] of [place]). 2010. Dietary reference intakes for calcium and D. [place]: The National Academies Press.2. Myla MF, Javier STUART, Panfilo MANN, et al. Evaluation, treatment, and prevention of vitamin D deficiency: an Endocrine Society clinical practice guideline. JCEM. 2010; 96(7):1911-30. 04-Kto-166324:38 LIPID PANEL (80712) Comments: PATIENT WAS FASTINGPERFORMED BY: [facility] Nzccrh0214 [facility] [id number] Information: [id number] LDL/HDL Ratio 4.2 {ratio_units} (Abnormal) Range: 0.0-3.2 [...] Cholesterol, Total 224 mg/dL (Abnormal) Range: 100-199 26-Nwj-523593:49 HEPATIC FUNCTION PANEL Comments: PATIENT NOT FASTINGPERFORMED BY: [facility] [facility] [id number] Information: [id number] (81273) ALT (SGPT) 193 [iU]/L (Abnormal) Range: 0-32 AST (SGOT) 43 [iU]/L (Abnormal) Range: 0-40 Alkaline Phosphatase, S 135 [iU]/L (Abnormal) Range: 39-117 Bilirubin, Direct 0.18 mg/dL (Normal) Range: 0.00-0.40 Bilirubin, Total 0.3 mg/dL (Normal) Range: 0.0-1.2 Albumin, Serum 4.1 g/dL (Normal) Range: 3.5-5.5 Protein, Total, Serum 6.7 g/dL (Normal) Range: 6.0-8.5 :49 HEPATITIS PANEL (69087) Comments: PATIENT NOT FASTINGPERFORMED BY: [facility] [facility] [id number] Hep C Virus Ab <0.1 {s/co_ratio} (Normal) Range: 0.0-0.9 Comments: Negative: < 0.8 Indeterminate: 0.8 - 0.9 Positive: > 0.9 . In order to reduce the incidence of a false positive result, the CDC recommends that all s/co ratios between 1.0 and 10.9 be confirmed by a more specific supplemental or PCR testing. [employer] offers HCV Ab w/Reflex to Verification test #703082. Hep B Core Ab, IgM Negative (Normal) HBsAg Screen Negative (Normal) Hep A Ab, IgM Negative (Normal) 36-Oaq-084209:49 ANTIMITOCHONDRIAL ANTIBODY Comments: PATIENT NOT FASTINGPERFORMED BY: [place] [address] [facility] [id number] (81131) Atypical pANCA <1:20 {titer} (Normal) Comments: The [...] follow up testing ofpositive sera with both NJ-3 and MPO- ANCA enzyme immunoassays. Asmany as 5% serum samp les are positive only by EIA.Ref. AM J Clin Pathol 1999;111:507-513. Cytoplasmic (C-ANCA) <1:20 {titer} (Normal) 84-Ooo-507745:49 TRANSFERRIN (71651) Comments: PATIENT NOT FASTINGPERFORMED BY: CB [facility] Wghmiy1824 [place] Ql[place]bl[place] [id number] Transferrin 259 mg/dL (Normal) Range: 200-370 25-Tdk-769935:49 GGT (GAMMA GLUTAMYLTRANSFERASE) Comments: PATIENT NOT FASTINGPERFORMED BY: CB [facility] Jaxmzl3431 [place] Qlustersblin [place] [id number] (56585) GGT 385 [iU]/L (Abnormal) Range: 0-60 74-Jme-746469:49 FERRITIN (23422) Comments: PATIENT NOT FASTINGPERFORMED BY: CB [facility] Romeub5458 [place] Qlustersblin [place] [id number] Ferritin, Serum 447 ng/mL (Abnormal) Range: 15-150 12-Wbc-828461:49 CMV IGM ANTBDY (17908) Comments: PATIENT NOT FASTINGPERFORMED BY: CB [facility] Sdnotr6552 [place] Savedailyblin [place] [id number] Cytomegalovirus (CMV) Ab, IgM <30.0 AU/mL (Normal) Range: 0.0-29.9 Comments: Negative <30.0 Equivocal 30.0 - 34.9 Positive >34.9 A positive result is generally indicative of acute infection, reactivation or persistent IgM production. 83-Rfx-679192:49 CERULOPLASMIN (26896) Comments: PATIENT NOT FASTINGPERFORMED BY: CB [facility] Hnhbwr7953 [place] SavedailyDublin [place] [id number] Ceruloplasmin 29.9 mg/dL (Normal) Range: 16.0-45.0 13-Qdj-402734:49 ASM (ANTI SMOOTH MUSCLE Comments: PATIENT NOT FASTINGPERFORMED BY: [employer] Buaaqk11[address] [facility] [id number] ANTIBODY) (67816) Actin (Smooth Muscle) Antibody 5 {Units} (Normal) Range: 0-19 Comments: Negative 0 - 19 Weak positive 20 - 30 Moderate to strong positive >30 . Actin Antibodies are found in 52-85% of patients with autoimmune hepatitis or chronic active hepatitis and in 22% of patients with primary biliary cirrhosis. 21-Khe-101943:49 ANTI-LIVER/KIDNEY MICROSOMAL Comments: PATIENT NOT FASTINGPERFORMED BY: [employer] [facility] [id number] ANTIBODY (87989) Thyroid Peroxidase (TPO) Ab 9 {IU/mL} (Normal) Range: 0-34 02-Tli-689014:49 LOLITA (ANTINUCLEAR ANTIBODY) Comments: PATIENT NOT FASTINGPERFORMED BY: [employer] Botwig[address] [facility] [id number] (21569) LOLITA Direct Negative (Normal) 12-Lfd-695333:49 TSH (58723) Comments: PATIENT NOT FASTINGPERFORMED BY: [facility]kinSaint [facility] at SussexCvbjst4020 [facility] [id number] TSH 1.520 {uIU/mL} (Normal) Range: 0.450-4.500 85-Fsc-242193:49 T4, FREE (THYROXINE) (58459) Comments: PATIENT NOT FASTINGPERFORMED BY: [facility]kinSaint [facility] at SussexCjqvdk8680 [facility] [id number] T4,Free(Direct) 0.97 ng/dL (Normal) Range: 0.82-1.77 66-Clg-991338:49 T3, FREE (TRIDOTHYRONINE) (42896) Comments: PATIENT NOT FASTINGPERFORMED BY: [facility]itFormerly [facility] [facility] [id number] Triiodothyronine,Free,Serum 3.2 pg/mL (Normal) Range: 2.0-4.4 34-Upj-131819:23 Throat Culture (78757) Comments: PATIENT NOT FASTINGPERFORMED BY: [facility] [facility] [id number] Information: SRC:THRT [id number] Result 1 RRF (Normal) Comments: Routine respiratory edith Upper Respiratory Culture Final report (Normal) :36 Rapid Strep Test, Office (21637) Rapid Strep Test, Office Negative (Normal) :38 CALCIFEDIOL (77996) Comments: PATIENT WAS FASTINGPERFORMED BY: [facility] [facility] [id number] Vitamin D, 25-Hydroxy 16.2 ng/mL (Abnormal) Range: 30.0-100.0 Comments: Vitamin D deficiency has been defined by the [place] of[place] and an Endocrine Society practice guideline as alevel of serum 25-OH vitamin D less than 20 ng/mL (1,2).The Endocrine Society went on to further define vitamin Dinsufficiency as a level between 21 and 29 ng/mL (2).1. IOM ([place] of Medicine). 2010. Dietary reference intakes for calcium and D. [place]: The National Academies Press.2. Myla MF, Javier NC, Panfilo MANN, et al. Evaluation, treatment, and prevention of vitamin D deficiency: an Endocrine Society clinical practice guideline. JCEM. 2010; 96(7):1911-30. :38 Lipid Panel (60410) Comments: PATIENT WAS FASTINGPERFORMED BY: [facility] [facility] [place] [id number] Information: [id number] LDL/HDL Ratio 3.8 {ratio_units} (Abnormal) Range: 0.0-3.2 [...] FUNCTION PANEL Comments: PATIENT WAS FASTINGPERFORMED BY: [facility]it[facility] [facility] [id number] (71223) ALT (SGPT) 446 [iU]/L (Abnormal) Range: 0-32 AST (SGOT) 119 [iU]/L (Abnormal) Range: 0-40 Alkaline Phosphatase, S 176 [iU]/L (Abnormal) Range: 39-117 Bilirubin, Direct 0.59 mg/dL (Abnormal) Range: 0.00-0.40 Bilirubin, Total 1.2 mg/dL (Normal) Range: 0.0-1.2 Albumin, Serum 4.2 g/dL (Normal) Range: 3.5-5.5 Protein, Total, Serum 7.0 g/dL (Normal) Range: 6.0-8.5 :24 Metabolic Panel, Comprehensive Comments: PATIENT NOT FASTINGPERFORMED BY: [facility] [facility] [id number] (73696) ALT (SGPT) 40 [iU]/L (Abnormal) Range: 0-32 [...] Glucose, Serum 108 mg/dL (Abnormal) Range: 65-99 09-Crn-996999:24 CBC, Platelets & Auto Comments: PATIENT NOT FASTINGPERFORMED BY: LabCoSaint [facility] at SussexYnqqur53[address] [facility] [id number] Information: [id number] Diff (25138) Immature Grans (Abs) 0.0 {x10E3/uL} (Normal) Range: [...] 3.77-5.28 WBC 10.1 {x10E3/uL} (Normal) Range: 3.4-10.8 51-Dat-657848:09 URINE KENROY CULTURE-IDENTIFICATN Comments: PATIENT NOT FASTINGPERFORMED BY: [address] [id number] Information: [id number] (21108) Result 1 MUG (Normal) Comments: Mixed urogenital flora1,000 Colonies/mL Urine Culture,Comprehensive Final report (Normal) 17-Wod-373391:21 Urinalysis, Office (88714) UA - LEUKOCYTE ESTERASE Trace (Normal) UA - NITRITE Negative (Normal) URINE UROBILINGN JUAN TIMED Normal mg/dL (Normal) UA - PROTEIN Negative mg/dL (Normal) UA - PH 6 (Abnormal) UA - BLOOD Negative (Normal) UA - SPECIFIC GRAVITY 1.025 (Normal) UA - KETONES Negative mg/dL (Normal) UA - BILIRUBIN Negative (Normal) UA - GLUCOSE Negative (Normal) 65-Olc-730857:39 HEPATITIS B SURFACE ANTIBODY Comments: PATIENT NOT FASTINGPERFORMED BY: StageitCaroline [place] 13064[address] [facility] [id number] (57119) Hep B Surface Ab, Qual Non Reactive (Normal) Comments: Non Reactive: Inconsistent with immunity, less than 10 mIU/mL Reactive: Consistent with immunity, greater than 9.9 mIU/mL 65-Npz-267303:39 HEPATITIS PANEL (55888) Comments: PATIENT NOT FASTINGPERFORMED BY: [facility] [facility] [place] [id number] Information: [id number] Hep C Virus Ab 0.2 {s/co_ratio} (Normal) Range: 0.0-0.9 Comments: Negative: < 0.8 Indeterminate 0.8 - 0.9 Positive: > 0.9 . In order to reduce the incidence of a false positive result, the CDC recommends that all s/co ratios between 1.0 and 10.9 be confirmed by a more specific supplemental or PCR testing. [facility] w/Reflex to Verification test #[id number]. Hep B Core Ab, IgM Negative (Normal) HBsAg Screen Negative (Normal) Hep A Ab, IgM Negative (Normal) 79-Pbc-099788:39 FPENO-NRXKAAPIWPV-LUWYX (43054) Comments: PATIENT NOT FASTINGPERFORMED BY: [facility] [facility] [place] [id number] AFP, Serum, Tumor Marker 2.8 ng/mL (Normal) Range: 0.0-8.3 Comments: Perfect Memory ECLIA methodology 2-Oro-036717:59 CBC, Platelets & Auto Diff Comments: PATIENT NOT FASTINGPERFORMED BY: [facility] [place] [id number] Information: [id number] ([id number]) Immature Grans (Abs) 0.0 {x10E3/uL} (Normal) Range: [...] Comprehensive Comments: PATIENT NOT FASTINGPERFORMED BY: [facility] [place] [id number] ([id number]) ALT (SGPT) 27 [iU]/L (Normal) Range: 0-32 [...] Glucose, Serum 125 mg/dL (Abnormal) Range: 65-99 8-Ihb-632931:08 Urinalysis, Office (83414) UA - LEUKOCYTE ESTERASE Moderate (Normal) UA - NITRITE Positive (Normal) URINE UROBILINGN JUAN TIMED Normal mg/dL (Normal) UA - PROTEIN Negative mg/dL (Normal) UA - PH 6 (Abnormal) UA - BLOOD non-hemolyzed trace (Normal) UA - SPECIFIC GRAVITY 1.020 (Normal) UA - KETONES Negative mg/dL (Normal) UA - BILIRUBIN Negative (Normal) UA - GLUCOSE Negative (Normal) 50-Oyd-552269:41 Urinalysis, Office (89222) UA - BILIRUBIN Negative (Normal) UA - BLOOD Negative (Normal) UA - GLUCOSE Negative (Normal) UA - KETONES Negative mg/dL (Normal) UA - LEUKOCYTE ESTERASE Negative (Normal) UA - NITRITE Negative (Normal) UA - PH 7.0 (Normal) UA - PROTEIN Negative mg/dL (Normal) UA - SPECIFIC GRAVITY 1.020 (Normal) URINE UROBILINGN JUAN TIMED Normal mg/dL (Normal) 74-Yzl-81164:34 KENROY CULTURE-OTHER ([id number]) Comments: PATIENT NOT FASTINGPERFORMED BY: [facility] [id number] [facility] [id number] Information: SRC: THROAT Result 1 RRF (Normal) Comments: Routine respiratory edith Upper Respiratory Culture Final report (Normal) 77-Edf-228869:20 BBBMC-BJKWHXEPMGR-EOOEE (36827) Comments: PATIENT NOT FASTINGPERFORMED BY: [facility]kinSaint [facility] at SussexJxmtlt[address] [facility] [id number] AFP, Serum, Tumor Marker 2.6 ng/mL (Normal) Range: 0.0-8.3 Comments: Ozzie ECLIA methodology 84-Clm-306498:20 PTT (Activated Partial Comments: PATIENT NOT FASTINGPERFORMED BY: MapkinSaint [facility] at SussexHuhzaq27[address] [facility] [id number] Thromboplastin Time) (84187) aPTT 31 {sec} (Normal) Range: 24-33 Comments: This test has not been validated for monitoring unfractionated heparintherapy. aPTT-based therapeutic ranges for unfractionated heparintherapy have not been established. For general guidelines onHeparin monitoring, refer to the [facility] Directory of Services. 26-Vux-895527:20 PT (Prothrobim Time) (40567) Comments: PATIENT NOT FASTINGPERFORMED BY: [facility]CoM[facility]calero Service UnitIzztqg9[address] [facility] [id number] INR 1.0 (Normal) Range: 0.8-1.2 Comments: Reference interval is for non-anticoagulated patients. . Suggested INR therapeutic range for Vitamin K anta gonist therapy: Standard Dose (moderate intensity therapeutic range): 2.0 - 3.0 Higher intensity therapeutic range 2.5 - 3.5 Prothrombin Time 10.3 {sec} (Normal) Range: 9.1-12.0 14-Emq-593982:20 CBC WITH MANUAL DIFF Comments: PATIENT NOT FASTINGPERFORMED BY: [facility] [facility] [id number] Information: [id number] (75337) Immature Grans (Abs) 0.0 {x10E3/uL} (Normal) Range: [...] 3.77-5.28 WBC 12.1 {x10E3/uL} (Abnormal) Range: 4.0-10.5 33-Dwk-972659:49 GALLBLADDER Radiology Report See Note (Normal) Comments: [...] size of the right kidney. The right xlzonioqbbkwgd60.8 cm. Normal renal cortex. The right cortex measures 1.1 cm. Thereisno demonstrated renal mass or cyst. There is no right hydronephrosis. IMPRESSION:Solitary gallstone.Fatty infiltration of the liver. Signed:Jono Dumont M.D.October 11, 2012 at 2:01:18 PM [phone] Signed GP/GP If you are the referring physician and would like to consult with theradiologist who provided this interpretation, please contact Simone Espino at [phone]. If this radiologist is unavailable, youwi ll [...] Julia DÍAZ,Jono on 10/11/12 1406 Sign by: Jono Dumont MD 97-Pff-618572:14 C-REACTIVE PROTEIN (53735) Comments: PATIENT NOT FASTINGPERFORMED BY: PasswordBank [id number] [facility] [id number] C-Reactive Protein, Quant 11.5 mg/L (Abnormal) Range: 0.0-4.9 39-Eap-053406:14 SED RATE ERYTHROCYTE (78930) Comments: PATIENT NOT FASTINGPERFORMED BY: PasswordBank [id number] [facility] [id number] Sedimentation Rate-Westergren 7 mm/h (Normal) Range: 0-32 92-Wlh-128922:14 CBC WITH MANUAL DIFF Comments: PATIENT NOT FASTINGPERFORMED BY: [facility] Gbwahr[address] [facility] [id number] Information: [id number] (54092) Immature Grans (Abs) 0.0 {x10E3/uL} (Normal) Range: [...] 3.77-5.28 WBC 13.1 {x10E3/uL} (Abnormal) Range: 4.0-10.5 66-Dgn-505116:14 METABOLIC PANEL, COMPREHENSIVE Comments: PATIENT NOT FASTINGPERFORMED BY: LabCoSaint [facility] Hospital at SussexUhrlks[address] [facility] [id number] (58003) ALT (SGPT) 25 [iU]/L (Normal) Range: 0-32 [...] mg/dL (Abnormal) Range: 65-99 21-Sep-20129:52 Rapid Flu (73678 x 2) Influenza A Ag pos a (Normal) 8-Amp-137342:01 Influenza A&B Viral Comments: PATIENT NOT FASTINGPERFORMED BY: ThromboVisionlin[address] [facility] [id number] Information: SRC:NOS Q63929 Culture (92108) Viral Culture,Rapid,Influenza PFLUA (Abnormal) Comments: PositiveInfluenza A detected.. :40 LIPID PANEL (62089) Comments: PATIENT WAS FASTINGPERFORMED BY: [employer] [facility] [id number] LDL/HDL Ratio 3.0 {ratio_units} (Normal) Range: 0.0-3.2 [...] METABOLIC PANEL, Comments: PATIENT WAS FASTINGPERFORMED BY: Mobii[address] [facility] [id number] Information: [id number] COMPREHENSIVE (03022) ALT (SGPT) 29 [iU]/L (Normal) Range: 0-32 [...] Glucose, Serum 87 mg/dL (Normal) Range: 65-99 94-Odi-92864:35 KENROY CULTURE-OTHER (34868) Comments: PATIENT NOT FASTINGPERFORMED BY: [facility] [facility] [id number] Information: SRC:THRT Q94993 Result 1 RRF (Normal) Comments: Routine respiratory edith Upper Respiratory Culture Final report (Normal) 07-Wud-34845:21 Rapid Strep Test, Office (70147) Rapid Strep Test, Office Negative (Normal) 9-Kpd-919714:10 CBC With Differential/Platelet Comments: PATIENT WAS FASTINGPERFORMED BY: LabCoSaint [facility] Hospital at SussexYeszqu[address] [facility] [id number] Immature Grans (Abs) 0.0 {x10E3/uL} (Normal) Range: [...] 3.77-5.28 WBC 9.3 {x10E3/uL} (Normal) Range: 4.0-10.5 5-Hrl-542075:10 Comp. Metabolic Panel (14) Comments: PATIENT WAS FASTINGPERFORMED BY: LabCoSaint [facility]'s Hospital at SussexGycryc[address] [facility] [id number] ALT (SGPT) 22 [iU]/L (Normal) Range: 0-40 [...] % (Abnormal) Comments: PATIENT WAS FASTINGPERFORMED BY: [employer] [facility] [id number] :10 Range: 4.8-5.6 Comments: . Increased risk for diabetes: 5.7 - 6.4 Diabetes: >6.4 Glycemic control for adults with diabetes: <7.0 :10 Lipid Panel With LDL/HDL Comments: PATIENT WAS FASTINGPERFORMED BY: [facility] [id number] Ratio LDL/HDL Ratio 4.3 {ratio_units} (Abnormal) Range: 0.0-3.2 LDL Cholesterol Calc 154 mg/dL (Abnormal) Range: 0-99 VLDL Cholesterol [place] 23 mg/dL (Normal) Range: 5-40 HDL Cholesterol 36 mg/dL (Abnormal) Comments: According to ATP-III Guidelines, HDL-C >59 mg/dL is considered anegative risk factor for CHD. Triglycerides 115 mg/dL (Normal) Range: 0-149 Cholesterol, Total 213 mg/dL (Abnormal) Range: 100-199 3-Zaz-266000:10 Microalb/Creat Ratio, Randm Ur Comments: PATIENT WAS FASTINGPERFORMED BY: MapkinMescalero Service UnitGofygm[address] [facility] [id number] Microalb/Creat Ratio 6.3 {mg/g_creat} (Normal) Range: 0.0-30.0 Creatinine, Urine 30.4 mg/dL (Normal) Range: 15.0-278.0 Microalbumin, Urine 1.9 ug/mL (Normal) Range: 0.0-17.0 4-Hne-393862:10 Microscopic Examination Comments: PATIENT WAS FASTINGPERFORMED BY: [employer] Epngrm[address] [facility] [id number] Bacteria Few (Normal) Mucus Threads Present (Normal) Epithelial Cells (non 0-10 {/hpf} Range: 0 - 10 renal) (Normal) RBC None seen {/hpf} Range: 0 - 3 (Normal) WBC 0-5 {/hpf} (Normal) Range: 0 - 5 TSH 2.190 {uIU/mL} Comments: PATIENT WAS FASTINGPERFORMED BY: MapkinSaint [facility] Hospital at SussexYdnyzg[address] [facility] [id number] :10 (Normal) Range: 0.450-4.500 7-Fbx-495847:10 Urinalysis, Complete Comments: PATIENT WAS FASTINGPERFORMED BY: MapkinSaint [facility] Hospital at SussexTbtewu[address] [facility] [id number] Microscopic Examination See below: (Normal) Microscopic Examination MICRON (Normal) Comments: Microscopic follows if indicated. Nitrite, Urine Negative (Normal) Urobilinogen,Semi-Qn 0.2 mg/dL (Normal) Range: 0.0-1.9 Bilirubin Negative (Normal) Occult Blood Negative (Normal) Ketones Negative (Normal) Glucose Negative (Normal) Protein Negative (Normal) WBC Esterase Negative (Normal) Appearance Clear (Normal) Urine-Color Yellow (Normal) pH 7.5 (Normal) Range: 5.0-7.5 Specific [place] 1.008 (Normal) Range: 1.005-1.030 3-Eci-070101:53 CHEST, PA AND LATERAL Radiology Report See [...] shah M.D.May 28, 2012 at 3:41:15 PM [id number] Signed GP/GP If you are the referring physician and would like to consult with theradiologist who provided this interpretation, please contact Simone Espino at [phone]. If this radiologist is unavailable, youwill be directed to another radiologist to assist. If you are a patient with a question regarding this report, pl easecontactyour referring physician directly. Professional Interpretation Provided By: [employer], Phone , These documents contain legally protected and confidential healt hinformation intended only for the use of the individual or entity namedabove. If you are not the intended recipient, you are hereby notifiedthatany disclosure, copying, distribution, or other use of [facility] documents isstrictly prohibited. If you have received this information in error,pleasenotify the sender immediately and arrange for the return or destructionofthese documents. Dictated on 2 1103 by Maximo Dumont MDribed on 05/28/12 1544 by ITS IMPORTSign by Julia DÍAZJono on 05/28/12 1545 Sign by: Julia DÍAZJono 26-May-20120:00 ABDOMEN/PELVIS WITH CONTRAST Radiology Report See [...] Marquez M.D.May 26, 2012 at 9:02:07 PM EDT([phone] Signed AM/AM If you are the referring physician and would like to consult with theradiologist who provided this i nterpretation, please contact Joanne Marquez M.D. at . If this radiologist is unavailable, you will bedirected to another radiologist to assist. If you are a patient with a question regarding this report, pleasecontactyour referring physician directly. Professional Interpretation Provided By: [employer], Phone , These documents contain legally protected [...] : Eprescribed prescriptions (G8553) Indication: BMI 39.0-39.9,adult [facility] WELLNESS EXAM : Eprescribed prescriptions (G8553) Indication: [...] partial nephrectomy H/O partial nephrectomy : Reviewed Song Plugger Letter Indication: H/O partial nephrectomy Abdominal pain, [...] generalized Planned Observations Serum Free Light Chains (70701)Indication: Abnormal blood chemistry On: 83-Ued-128416:54 Request MICROALBUMIN: CREATININE RATIO (43520) AND (29278)Indication: Hypertension, benign On: :06 Request IMMUNOGLOBULIN E (IgE) (78076)Indication: Acute bronchitis On: :06 Request LIPID PANEL (43178)Indication: Mixed hyperlipidemia On: :40 Request IHTMA-GVDCNHQQRXD-JUEKX (71833)Indication: Fatty liver On: :40 Request HGB A1C (81350)Indication: Impaired Fasting Glucose On: :40 Request METABOLIC PANEL, COMPREHENSIVE (81944)Indication: Impaired Fasting Glucose On: :40 Request CBC (AUTO) (02199)Indication: Impaired Fasting Glucose On: :49 Request Vitamin D Hydroxy (22029)Indication: Vitamin D deficiency On: :48 Request METABOLIC PANEL, COMPREHENSIVE (25849)Indication: Mixed hyperlipidemia On: :48 Request LIPOPROTEIN, BLD, BY NMR (65310)Indication: Mixed hyperlipidemia On: :48 Request VYDRD-FYWHVHGZDGX-ZPCGS (09044)Indication: Acute foot pain, right On: 85-Vrz-280029:38 Request Vitamin D Hydroxy (14450)Indication: Vitamin D deficiency On: :50 Request LFEMM-YDILVPCGABT-GGNGW (42529)Indication: Fatty liver On: :50 Request METABOLIC PANEL, COMPREHENSIVE (33173)Indication: Impaired Fasting Glucose On: 23-Nov-20159:49 Request MICROALBUMIN: CREATININE RATIO (02575) AND (70441)Indication: Impaired Fasting Glucose On: :49 Request HGB A1C (43663)Indication: Impaired Fasting Glucose On: :49 Request LIPID PANEL (40412)Indication: Mixed hyperlipidemia On: :49 Request LIPID PANEL (39590)Indication: Mixed hyperlipidemia On: 02-Ltr-468434:00 Request MICROALBUMIN: CREATININE RATIO (58841) AND (37815)Indication: Impaired Fasting Glucose On: 38-Wni-967746:00 Request Hemoglobin Glyclated (HGB A1C) (38767)Indication: Impaired Fasting Glucose On: 83-Lrc-804081:00 Request Vitamin D Hydroxy (60024)Indication: Vitamin D deficiency On: 23-Qbs-883206:00 Request Vitamin D Hydroxy (45396)Indication: Vitamin D deficiency On: :11 Request CBC with auto diff (18899)Indication: Hypertension, benign On: 13-Kek-262175:11 Request METABOLIC PANEL, COMPREHENSIVE (44029)Indication: Impaired Fasting Glucose On: 96-Mjo-466598:10 Request MICROALBUMIN: CREATININE RATIO (05471) AND (44531)Indication: Impaired Fasting Glucose On: 62-Gmr-936933:10 Request Hemoglobin Glyclated (HGB A1C) (39665)Indication: Impaired Fasting Glucose On: 62-Ako-273223:10 Request LIPID PANEL (78917)Indication: Mixed hyperlipidemia On: 47-Ghr-949683:10 Request ZAVJS-LGYIOSQUKYY-KYSFI (20419)Indication: Fatty liver On: 98-Hlx-816979:10 Request Vitamin D Hydroxy (31841)Indication: Vitamin D deficiency On: 9-Bvk-140549:15 Request Hemoglobin Glyclated (HGB A1C) (86933)Indication: Impaired Fasting Glucose On: 9-Mqa-178335:14 Request METABOLIC PANEL, COMPREHENSIVE (66100)Indication: Impaired Fasting Glucose On: 9-Kaa-912520:14 Request LIPID PANEL (59543)Indication: Mixed hyperlipidemia On: 1-Lek-093069:14 Request Lipid Panel (30113)Indication: Elevated liver enzymes On: 54-Sdu-938875:47 Request HEPATIC FUNCTION PANEL (68202)Indication: Mixed hyperlipidemia On: 24-Pek-826311:08 Request CALCIFEDIOL (52607)Indication: Unspecified Diagnosis On: 30-Qhd-84713:53 Request Lipid Panel (27876)Indication: Unspecified Diagnosis On: 21-Opz-37117:53 Request Lipid Panel (28694)Indication: SCREENING FOR HYPERLIPIDEMIA (Renamed from Encounter for screening for lipoid disorders) On: 43-Ltu-007979:34 Request Comments: To be drawn Fasting Mar 2014 METABOLIC PANEL, COMPREHENSIVE (14880)Indication: Left knee pain On: 20-Bhz-341425:39 Request CCP ANTIBODY (65901)Indication: Left knee pain On: 31-Qop-334507:39 Request SED RATE ERYTHROCYTE (11837)Indication: Left knee pain On: 95-Usv-850925:39 Request C-REACTIVE PROTEIN (62347)Indication: Left knee pain On: :39 Request TSH (55392)Indication: Left knee pain On: :39 Request RHEUMATOID FACTOR-QUANT (24008)Indication: Left knee pain On: 66-Whz-757253:39 Request Rapid Strep Test, Office (22165)Indication: ACUTE PHARYNGITIS (462.) On: 93-Fqn-67422:20 Request C-REACT PROT HIGH SENS(hsCRP) (11558)Indication: Hypertension, benign On: 22-Tli-976602:16 Request Sed Rate Erythrocyte (99896)Indication: Hypertension, benign On: 81-Qex-724460:16 Request CBC with manual diff (92337)Indication: Hypertension, benign On: 23-Xpg-592655:16 Request TSH (96365)Indication: Chest pain On: :33 Request CBC WITH MANUAL DIFF (77908)Indication: Chest pain On: :33 Request MICROALBUMIN: CREATININE RATIO (25111) AND (47501)Indication: Hypertension, benign On: :47 Request URINALYSIS, W/ MICRO (57558)Indication: Hypertension, benign On: :47 Request Hemoglobin Glyclated (HGB A1C) (20480)Indication: Obesity, unspecified On: :47 Request LIPID PANEL (63878)Indication: Mixed hyperlipidemia On: 09-Vnw-297779:46 Request METABOLIC PANEL, COMPREHENSIVE (20318)Indication: Hypertension, benign On: 94-Sao-594099:46 Request Planned Encounters Medical; [facility]ness Exam (Doctor) - On: 20-Aug-2018 13:30 [facility] Fast DO, Marcelle A Fast DO, Marcelle A Planned Procedures CT ABDOMEN AND PELVIS WITHOUT On: 10-Aug-2018 Intent CONTRAST (19239)By: Andrew DOTla Comments: stone protocol- STAT STAT STAT STAT STAT STAT A Fast DO, Marcelle A ELECTROCARDIOGRAM, COMPLETE (ECG) On: 26-Jul-2018 Intent (68968)By: Catalina Corona Comments: Normal Sinus Rhythm-HR 67 ORTHOSTATIC BLOOD PRESSURE On: 26-Jul-2018 Intent ASSESSMENT (27105)By: Cj Comments: Layin/68 HR 60Sittin/70 GF01Pwontzun: 84/66 HR 90 Catalina Flu Vaccine (Quadrivalent) On: 30-Apr-2018 Intent 17086Xf: Fast DO, Marcelle A Fast DO, Comments: Lot #[id number]-2/30/19Site-L dltd, IMDose prefilled syringegiven by: Marta AVINA reviewed and ABN signed Marcelle A MAGNETIC RESONANCE IMAGING OF On: 07-Mar-2018 Intent RIGHT CALF WITHOUT THEN WITH CONTRAST (71630)By: Sara Henry Doppler Ultrasound OtherBy: Fast On: 06-Mar-2018 Intent DO, Marcelle A Fast DO, Marcelle A Comments: right leg- stat CT - Abdomen & Pelvis (IV Contrast On: 31-Jan-2018 Intent Needed)By: Fast DO, Marcelle A Fast Comments: with and without contrast DO, Marcelle A Ultrasound - ThyroidBy: Fast DO, On: 16-Oct-2017 Intent Marcelle A Fast DO, Marcelle A ELECTROCARDIOGRAM, COMPLETE (ECG) On: 20-Jun-2017 Intent (69088)By: Fast DO, Marcelle A Fast DO, Marcelle A SCREENING DIGITAL TOMOSYNTHESIS OF On: 20-Jun-2017 Intent BREAST (48794)By: Fast DO, Marcelle A Fast DO, Marcelle A Flu Vaccine (Quadrivalent) On: 20-Jun-2017 Intent 24472Zt: Fast DO, Marcelle A Fast DO, Comments: [...] DO, Marcelle A Fast Comments: Lot:[id number]:01/05Dose:1mlRoute:IMSite:l armGiven By:JKMVIS signed DO, Marcelle A Aerosol Treatment (78756)By: Andrew On: 23-Sep-2016 Intent DO, Marcelle A Fast DO, Marcelle A Comments: with albuterol Ultrasound - ThyroidBy: Fast DO, On: 29-Aug-2016 Intent Marcelle A Fast DO, Marcelle A Radiology - Shoulder - LeftBy: On: 16-May-2016 Intent Fast DO, Marcelle A Fast DO, Marcelle A Comments: with ac joint please DEXA SCAN AXIAL SKELETON On: 16-May-2016 Intent (51919)By: Fast DO, Marcelle A Fast DO, Marcelle A MAMMOGRAM, SCREENING, BOTH BREAST On: 16-May-2016 Intent (09629)By: Fast DO, Marcelle A Fast DO, Marcelle A ELECTROCARDIOGRAM, COMPLETE (ECG) On: 16-May-2016 Intent (69078)By: Fast DO, Marcelle A Fast Comments: ekg showed normal sinus rhythym, normal axis, no acute st/t wave changes slight prolong qt DO, Marcelle A Flu Vaccine (Quadrivalent) On: 16-May-2016 Intent 53253Pm: Fast DO, Marcelle A Fast DO, Comments: Lot #:[id number] date:02/17/17mount given:0.5mlRoute: IMSite given: left deltoidGiven by: [...] 27-May-2015 Intent Sally Radiology - ChestBy: Felix BACH, On: 18-May-2015 Intent Sally MAMMOGRAM, SCREENING, BOTH BREAST On: 15-May-2015 Intent (51819)By: Fast DO, Marcelle A Fast DO, Marcelle A Flu Vaccine (Quadrivalent) On: 15-May-2015 Intent 65333Rk: Fast DO, Marcelle A Fast DO, Comments: Lot:[id number]:01/03Dose:0.5mLRoute:IMSite:L DltdGiven By:AZEB Kennedy signed Marcelle A ADMINISTRATION OF INFLUENZA VIRUS On: 15-May-2015 Intent VACCINE (G0008)By: Marcelle Daley DO, DO, Debra A EKG (50327)By: Marcelle Daley DO On: 06-Feb-2015 Intent Marcelle Daley DO Comments: ekg showed normal sinus rhythym, normal axis, no acute st/t wave changes lvh no change Aerosol Treatment (47573)By: On: 15-Jan-2015 Intent Jing Harrison DO Comments: more a/e - still exp noise on left side only Radiology - Chest- PA and LatBy: On: 15-Jan-2015 Intent Jing Harrison DO Flu Vaccine (Quadrivalent) On: 20-Jun-2014 Intent 72576Lv: Vivian Washington CNP ADMINISTRATION OF INFLUENZA VIRUS [...] ADMNIN, 1 VAC, SNGL/COMBO On: 03-Jul-2013 Intent (74777)By: Maty Tavears LPN Comments: Lot #[id number]-L dltd, IMDose prefilled syringegiven by:SIMONE Luque and ABN signed FLU VAC, SPLIT, >3 YEARS, On: 03-Jul-2013 Intent INTRAMUSC (23447)By: Maty Taveras LPN Toradol Injection, 30 mg On: 31-May-2013 Intent (J1885)By: Vivian Washington CNP Radiology - Left KneeBy: Felix On: 31-May-2013 Intent Vivian BACH Eprescribed prescriptions On: 06-Mar-2013 Intent (G8553)By: Sara Henry EKG (36759)By: Fast DO, Marcelle A On: 15-Oct-2012 Intent Fast DO, Marcelle A Comments: ekg showed normal sinus rhythym, normal axis, no acute st/t wave changes nsivcd no change Spirometry (86035)By: Fast DO, On: 15-Oct-2012 Intent Marcelle A Fast DO, Marcelle A Comments: good effort and curve normal Radiology - Chest- PA and LatBy: On: 15-Oct-2012 Intent Fast DO, Marcelle A Fast DO, Marcelle A Ultrasound - GallbladderBy: Fast On: 09-Oct-2012 Intent DO, Marcelle A Fast DO, Marcelle A Eprescribed prescriptions On: 09-Oct-2012 Intent (G8553)By: Melania Salcedo Aerosol Treatment (28035)By: Felix On: 21-Sep-2012 Intent Vivian BACH Eprescribed prescriptions On: 20-Jul-2012 Intent (G8553)By: Mealnia Salcedo SPECIMEN HNDLNG/TRNSPRT, OFFC > On: 11-Jul-2012 Intent LAB (00985)By: George Oscar LPN FLU VAC, SPLIT, >3 YEARS, On: 18-May-2012 Intent INTRAMUSC (27535)By: Denisse, Comments: Lot:[id number]:6.30.13Dose:prefilledRoute:IMSite:L DltdGiven By:BRIAN Velázquez CT - Abdomen & PelvisBy: Fast DO, On: 18-May-2012 Intent Marcelle A Fast DO, Marcelle A Echo CompleteBy: Fast DO, Marcelle A On: 18-May-2012 Intent Fast DO, Marcelle A Spirometry (62802)By: Fast DO, On: 18-May-2012 Intent Marcelle A Fast DO, Marcelle A Comments: good effort and curve normal Eprescribed prescriptions On: 18-May-2012 Intent (G8553)By: Fast DO, Marcelle A Fast DO, Marcelle A EKG (13041)By: Fast DO, Marcelle A On: 18-May-2012 Intent Fast DO, Marcelle A Comments: sinus with deep r waves left axis no acute st t cahnges Radiology - Chest- PA and LatBy: On: 18-May-2012 Intent Fast DO, Marcelle A Fast DO, Marcelle A TD Injection , IM (01094)By: On: 18-May-2012 Intent Melania Salcedo Comments: received in 2002 IMMUNIZ ADMNIN, 1 VAC, SNGL/COMBO On: 18-May-2012 Intent (52630)By: Melania Salcedo Planned Medications INJECTION, KETOROLAC TROMETHAMINE, [...] : Patient Instructions Indication: Impaired Fasting Glucose [facility] Wellness Physical : How to access health information online Indication: [facility] Physical [facility] Physical : How to access health information online - Detail Indication: [facility] Wellness Physical [facility] Wellness Physical : Patient Instructions Indication: [facility] [...] Indication: Hypertension, benign Encounters Office Visit On: 10-Aug-2018 18:51 Encounter Diagnosis: [...] it passed. Dizziness with movement. Was at [employer] working out and thought would stop and [...] BP med/ Will be seeing neurologist in [place] tomorrow), has decreased energy level (comes and [...] Problem - Note for Foot problem: saw wusumaning for foot pain- and got stero id [...] is sleeping poorly (just got back from [facility], time zone). Patient has been compliant with [...] the cleanse and has been going to [employer] with a personal train End: 16-Oct-2017 10:58 [...] chronic medical issues: is working out with net trainer once a week- and trying to [...] bandwagon- she was walkign regularly at the [facility] until last week -bp is ok- foot [...] medication. [facility] c End: 20-Sep-2015 17:39 [...] she is getting appt with urology t [facility] tthis done se we talked they can [...] with oncologist- which [facility]- has had abd pain for 4 weeks [...] do from here. Has seen Oncologist in [place], Dr. Jna Healy which he has referred her to [facility] which she is waiting to get in. margins were not clear and was renal cell carcino alysia darrick wanted to do watchful waiting- but went for second opinion in [place]-- got referred to Dr Iglesia Gibbons- she [...] for new patient female physical: [facility] - last at [...] Pain,General (789.07) [facility] Payers Medical [facility] TEMITOPE VALDOVINOS; a guarantor
--- OUTSIDE RECORDS SUMMARY | 2018-11-11 07:51 | XMS RPT_ITS | Continuity of Care Document ---
:1965 Author Organization [facility] Address [address] [facility] [address] [place] [address] Phone Care Team Providers Name Role Phone Marcelle Daley DO Unavailable Dr. Blayne Welsh Unavailable Devorah ALFARO MD , Richar Cruz Unavailable Dr. Alannah Marina Unavailable Brittany Hicks Unavailable Fuentes eDl Toro MD Unavailable Dr. Harjinder Cifuentes Unavailable [...] per [place], non cancer per [facility] per [place] Status: Active Hair loss (L65.9, 704.00) Status: [...] DO, Marcelle A Start : 23-Nov-2015 Active Augmentin 875-125 MG Oral Tablet 1 Tablet bid for 10 days Quantity: 20 {Tablet} Refills: 0 Ordered:08-Aug-2018 Marcelle Daley DO, DO, Marcelle A Start : 08-Aug-2018 Active CeleBREX [...] {Tablet} Refills: 0 Ordered:27-Jul-2018 Andrew MATHIS Marcelle Chopra DO Marcelle A Start : 27-Jul-2018 Active Nasacort Allergy 24HR 55 MCG/ACT Nasal Aerosol 1 spray each nostril daily (55 MCG/ACT) Active Nystatin 025832 UNIT/GM External Powder 1 (one) Powder qd for 0 days Quantity: 1 {Bottle} Refills: 1 Ordered:30-Apr-2018 Marcelle Daley DO, DO Marcelle A Start : 30-Apr-2018 Active ProAir HFA 108 (90 Base) MCG/ACT Inhalation Aerosol Solution 2 (two) Aerosol Soln puffs q 6 hours prn for 0 days Quantity: 1 {Inhaler} Refills: 1 Ordered:21-Jul-2017 Marcelle Chopra DO, Marcelle A Start : 21-Jul-2017 Active Rosuvastatin Calcium 10 MG Oral Tablet 1/2 Tablet qeve for 0 days Quantity: 30 {Tablet} Refills: 3 Ordered:07-May-2018 Fast DO, Marcelle HUGHESast DO, Marcelle A Start : 07-May-2018 Active Rosuvastatin Calcium 10 MG Oral Tablet 1/2 Tablet qeve for 0 days Quantity: 90 {Tablet} Refills: 3 Ordered:07-May-2018 Andrew MATHIS, Marcelle AFast DO, Marcelle A [...] for 30 days Refills: 0 Ordered:20-Jul-2012 Andrew MATHISTla AFast DO, Marcelle A Start : 20-Jul-2012 End : 19-Aug-2012 Inactive Contrave 8-90 MG Oral Tablet Extended Release 12 Hour 4 Tablet qd for 0 days Quantity: 120 {Tablet} Refills: 1 Ordered:16-Oct-2017 Sara Henry Start : 20-Jun-2017 End : 16-Oct-2017 Inactive Doxycycline Hyclate 100 MG Oral Capsule 1 (one) Capsule bid for 0 days Quantity: 20 {Capsule} Refills: 0 Ordered:16-Oct-2017 Andrew DO, Marcelle AFast DO, Marcelle [...] {Tablet} Refills: 0 Ordered:18-Jan-2017 Fast DO, Marcelle AFast DO, Marcelle A Start : 07-Dec-2016 End : 06-Jan-2017 Inactive VITAMIN B12, 100MCG (Oral Tablet) 1 daily (100 MCG) Inactive Atorvastatin Calcium 10 MG Oral Tablet 1 (one) Tablet qd in renzo for 90 days Quantity: 90 {Tablet} Refills: 3 Ordered:16-Oct-2017 Andrew MATHIS, Marcelle Chopra DO, Marcelle A Start : 16-Oct-2017 End : 16-Oct-2017 Discontinued AZELASTINE HCL, 0.05% (Ophthalmic Solution) 1 (one) Solution Solution bid for 0 days Quantity: 1 {Bottle} Refills: 0 Ordered:21-Apr-2015 Laura Benito LPN Start : 06-Dec-2013 End : 21-Apr-2015 Discontinued Ergocalciferol 39862 UNIT Oral Capsule 1 (one) Capsule Capsule q week for 0 days Quantity: 12 {Capsule} Refills: 3 Ordered:08-Mar-2017 Melania Salcedo Start : 04-Nov-2014 End : 08-Mar-2017 Discontinued Ergocalciferol 54803 UNIT Oral Capsule 1 (one) Capsule Capsule [...] Quantity: 180 {Capsule_ER} Refills: 3 Ordered:21-Apr-2015 Slarb PERIANESTHESIA RN, Laura Start : 07-Sep-2012 End : 21-Apr-2015 Discontinued PROVENTIL HFA, 108 (90 Base)MCG/ACT (Inhalation Aerosol Solution) 2 (two) Aerosol Soln q 6 hr prn for 0 days Quantity: 1 {Inhaler} Refills: 0 Ordered:21-Apr-2015 Slarb PERIANESTHESIA RN, Laura Start : 19-Jan-2015 End : 21-Apr-2015 Discontinued WELCHOL, 625MG (Oral Tablet) 3 (three) Tablet bid for 90 days Quantity: 540 {Tablet} Refills: 3 Ordered:23-Sep-2014 Fast DO, Marcelle AFast DO, Marcelle A Start : 23-Sep-2014 End : 23-Sep-2014 Discontinued ZITHROMAX Z-MEREDITH, 250MG (Oral Tablet) tad Tablet Tablet qd for 0 days Quantity: 1 {Package} Refills: 0 Ordered:21-Apr-2015 Slarb PERIANESTHESIA RN, Laura Start : 15-Jan-2015 End : 21-Apr-2015 [...] Status: Resolved as of 06-Feb-2015 Vaccine for uuefsuduad-dhvqrfo-nnxetpfdy with poliomyelitis (Z23, V06.3) Status: Inactive as [...] EMG Patient Result: Comments: See Note; NOTES: [facility] Pulmonary Services/Neurology [address] [place] [address] MR#: [id number] Acct: [id number] Name: AMY VALDOVINOS Rep #: [id number] : 0 1965 52 From: Adebayo Canchola MD Referring Dr: Blayne Welsh DPM Status: REG CLI Ordering Dr: Date: Location: N Sex: F C NCS and/or EMG Patient [...] Dictated: 03/28/18 1021 Date Transcribed: 03/28/18 1021 Head Of Visual Merchandising: NF Signed 10-Mar-2018 Lower Ext No Joint W/WO Cont Result: Comments: See Note; NOTES: [facility] Imaging Services [address] [place] [address] Lower Ext No Joint W/WO Cont MR#: [id number] Acct: [id number] Name: AMY VALDOVINOS Rep #: [id number] : 1965 F 52 From: Ge Moffett MD PCP: Marcelle Daley DO Status: REG CLI Study: Lower Ext No Joint W/WO Cont Date of Exam: 03/10/18 Exam# [id number] Ordering Dr: Marcelle Daley DO STUD Y: [...] Service support , CC: Marcelle Daley DO Head Of Visual Merchandising: Signed 06-Mar-2018 Venous Duplex Lower Extremity Result: Comments: See Note; NOTES: [facility] Cardiovascular Services [address] [place] [address] Venous Duplex US, Unilateral 03/06/18 1435 MR#: [id number] Acct: [id number] Name: AMY CHOI Rep #: [id number] : 1965 52 From: Jared Hines MD Attending Dr: Marcelle Daley DO Status: REG CLI Ordering Dr: Marcelle Daley DO Date: 03/06/18 Location: [facility] Sex: F C Admitted: [place] son For Study: LEG SWELLING RIGHT LEFT [...] Dictated: 03/06/18 1435 Date Transcribed: 03/06/18 1623 Head Of Visual Merchandising: Signed 19-Feb-2018 Abdomen/Pelvis WITH Contrast Result: Comments: See Note; NOTES: [facility] Imaging Services [address] [place] [address] Abdomen/Pelvis WITH Contrast MR#: [id number] Acct: [id number] Name: AMY VALDOVINOS Rep #: [id number] : 1965 F 52 From: Jono Dumont MD PCP: Marcelle Daley DO Status: REG CLI Study: Abdomen/Pelvis WITH Contrast Date of Exam: 02/19/18 Exam# [id number] Ordering Dr: Marcelle Daley TUDY: CT ABDOMEN [...] Jono Dumont MD at 10:35 EDT Tel [phone], Service support , CC: Marcelle Daley DO Head Of Visual Merchandising: Signed 17-Oct-2017 Thyroid Result: Comments: See Note; NOTES: [facility] Imaging Services [address] [place] [address] Thyroid MR#: [id number] Acct: [id number] Name: AMY VALDOVINOS Rep #: [id number] : [birth year] F 52 From: Shine Sawyer MD PCP: Marcelle Daley DO Status: REG CLI Study: Thyroid Date of Exam: 10/17/17 Exam# [id number] Ordering Dr: Marcelle Daley DO STUDY: THYROID [...] Service support , CC: Marcelle Daley DO Head Of Visual Merchandising: Signed 01-Aug-2017 SCREENING MAMM (CAD), BILAT Result: Comments: See Note; NOTES: [facility] Imaging Services [address] [place] [address] SCREENING MAMM (CAD), BILAT MR#: [id number] Acct: [id number] Name: AMY VALDOVINOS Rep #: [id number] : 1965 F 52 From: Jono Dumont MD PCP: Marcelle Daley DO Status: REG CLI Study: SCREENING MAMM (CAD), BILAT Date of Exam: 08/01/17 Exam# [id number] Ordering Dr: Marcelle Daley DO [facility] MOGRAPHY - BILATERAL SCREENING REASON FOR [...] delay biopsy of a clinically suspicious abnormality. [id number] Electronically Signed: Alma Dumont MD at 15:11 EST Tel [phone], Service support , CC: Marcelle Daley DO Head Of Visual Merchandising: Signed 01-May-2017 Venous Duplex Lower Extremity Result: Comments: See Note; NOTES: [facility] Cardiovascular Services [address] [place] [address] Venous Duplex US, Unilateral 04/28/17 1357 MR#: [id number] Acct: [id number] Name: AMY CHOI Rep #: [id number] : 1965 51 From: Jared Hines MD Attending Dr: Marcelle Daley DO Status: REG CLI Ordering Dr: Marcelle Daley DO Date: 04/28/17 Location: [facility] Sex: F C Admitted: [place] son For Study: SWELLING RIGHT LEFT GSV [...] Physician: Marcelle Daley Performed By: Sonia RDCS, LIDIA, Sita and Student 0 05/01/17 0854 Date Jared Hines MD CC: Marcelle Daley DO Date Dictated: 04/28/17 1357 Date Transcribed: 05/01/17 0855 Head Of Visual Merchandising: Signed 28-Apr-2017 Foot min 3 Views Result: Comments: See Note; NOTES: [facility] Imaging Services [address] [place] [address] Foot min 3 Views MR#: [id number] Acct: [id number] Name: AMY VALDOVINOS Rep #: [id number] D OB: 1965 F 51 From: Amarjit Britton DO PCP: Marcelle Daley DO Status: REG CLI Study: Foot min 3 Views Date of Exam: 04/28/17 Exam# [id number] Ordering Dr: Marcelle Daley DO STUDY: X-RAY [...] Amarjit Britton DO at 20:42 EDT Tel [phone], Service support , CC: Marcelle Daley DO Head Of Visual Merchandising: Signed 28-Apr-2017 Knee 4 or More Views Result: Comments: See Note; NOTES: [facility] Imaging Services [address] [place] [address] Knee 4 or More Views MR#: [id number] Acct: [id number] Name: AMY VALDOVINOS Rep #: [id number] : 1965 F 51 From: Amarjit Britton DO PCP: Marcelle Daley DO Status: REG CLI Study: Knee 4 or More Views Date of Exam: 04/28/17 Exam# [id number] Ordering Dr: Marcelle Daley DO STUDY: X-RAY [...] Amarjit Britton DO at 20:31 EDT Tel [phone], Service support , CC: Marcelle Daley DO Head Of Visual Merchandising: Signed 23-Mar-2017 Liver Result: Comments: See Note; NOTES: [facility] Imaging Services [address] [place] [address] Liver MR#: [id number] Acct: [id number] Name: AMY VALDOVINOS Rep #: [id number] : [birth year] F 51 From: Jono Dumont MD PCP: Marcelle Daley DO Status: REG CLI Study: Liver Date of Exam: 03/23/17 Exam# [id number] Ordering Dr: Marcelle Daley DO STUDY: ABDOMINAL [...] Jono Dumont MD at 8:50 EDT Tel [phone], Service support , CC: Marcelle Daley DO Head Of Visual Merchandising: Signed 31-Aug-2016 Thyroid Result: Comments: See Note; NOTES: [facility] Imaging Services [address] [place] [address] Verdana 4d Thyroid MR#: [id number] Acct: [id number] Name: AMY VALDOVINOS Rep #: [id number] : 1965 F 51 From: Amarjit Britton DO PCP: Marcelle Daley DO Status: REG CLI Study: Thyroid Date of Exam: 08/31/16 Exam# [id number] Ordering Dr: Marcelle Daley DO STUDY: THYROID [...] Amarjit Britton DO at 23:35 EST Tel [phone], Service support [phone], CC: Marcelle Daley DO Head Of Visual Merchandising: Signed 09-Jun-2016 Bilat Scrn Digital AND CAD Result: Comments: See Note; NOTES: [facility] Imaging Services [address] [place] [address] Verdana 4d Bilat Scrn Digital AND CAD MR#: [id number] Acct: [id number] Name: AMY VALDOVINOS E Rep #: [id number] : 1965 F 51 From: Jono Dumont MD PCP: Marcelle Daley DO Status: REG CLI Study: Lesley Molina Digital AND CAD Date of Exam: 06/09/16 Exam# [id number] Ordering Dr: Tl Daley DO MAMMOGRAPHY - [...] no significant change since the prior study. [facility]/Lesley Molina Digital AND CAD IMPRESSION: Stable bilateral screening mammogram. Yearly follow-up mammogram recommended. (A) ASSESSMENT CATEGORY: BIRADS Category 1: Negative. A letter regarding these results will be sent to the patient by the facility within 30 days. Approximately 10% of breast cancers are not detect ed by mammography. A normal mammogram should not delay biopsy of a clinically suspicious abnormality. [id number] Electronically Signed: Jono Dumont MD at 15:05 EDT Tel [phone], Servi ce support [phone], CC: Marcelle Daley DO Head Of Visual Merchandising: Signed 09-Jun-2016 Dexa Bone Density Study (HP) Result: Comments: See Note; NOTES: [facility] Imaging Services [address] [place] [address] Verdabraulio 4d Dexa Bone Density Study () MR#: [id number] Acct: [id number] Name: AMY VALDOVINOS Rep #: [id number] : 1965 F 51 From: Jono Dumont MD PCP: Marcelle Daley DO Status: REG CLI Study: Dexa Bone Density Study (HP) Date of Exam: 06/09/16 Exam# [id number] Ordering Dr: Marcelle Daley DO STUDY: DUAL [...] Jono Dumont MD at 8:21 EDT Tel [phone], Service support [phone], CC: Marcelle Daley DO Head Of Visual Merchandising: Signed 17-May-2016 Shoulder min 2 Views Result: Comments: See Note; NOTES: [facility] Imaging Services [address] [place] [address] Verdana 4d Shoulder min 2 Views MR#: [id number] Acct: [id number] Name: BONIFACIOAMY TEMITOPE Josephine p #: [id number] : 1965 F 50 From: Jono Dumont MD PCP: Marcelle Daley DO Status: REG CLI Study: Shoulder min 2 Views Date of Exam: 05/17/16 Exam# [id number] Ordering Dr: Marcelle Daley DO STUD Y: [...] Dumont MD 06/05/27 at 12:52 EDT Tel [phone], Service support [phone], CC: Marcelle Daley DO Head Of Visual Merchandising: Signed 17-Mar-2016 Foot min 3 Views Result: Comments: See Note; NOTES: [facility] Imaging Services [address] [facility] [place] [address] Verdana 4d Foot min 3 Views MR#: [id number] Acct: [id number] Name: AMY VALDOVINOS Rep #: [id number] : 1965 F 50 From: Malcom Emmanuel MD PCP: Marcelle Daley DO Status: REG CLI Study: Foot min 3 Views Date of Exam: 03/17/16 Exam# [id number] Ordering Dr: Marcelle Daley DO STUDY: X-RAY [...] Service support , CC: Marcelle Daley DO Head Of Visual Merchandising: Signed 10-Nov-2015 Chest without Contrast Result: Comments: See Note; NOTES: [facility] Imaging Services [address] [place] [address] Verdana 4d Chest without Contrast MR#: [id number] Acct: [id number] Name: AMY GUILLERMO Rep #: [id number] : 1965 F 50 From: Ismael Mejia DO PCP: Marcelle Daley DO Status: REG CLI Study: Chest without Contrast Date of Exam: 11/10/15 Exam# [id number] Ordering Dr: Mabel Daley ra, DO ADDENDUM by Ismael Mejia on 11/23/15 at 0952 ADDENDUM ADDENDUM: Review of the soft ti ssues of the supraclavicular regions demonstrate no evidence of lymphadenopathy or other soft tissue abnormality. Electronically Signed: Ismael Mejia DO at 9:52 EDT Tel [phone], Serv ice support [phone], 11/23/15 0952 Date cc: Marcelle Daley DO [...] Ismael Mejia DO at 21:20 EDT Tel [phone], Sezion support [phone], CC: Marcelle Daley DO Head Of Visual Merchandising: Signed 10-Nov-2015 Chest without Contrast Result: Comments: See Note; NOTES: [facility] Imaging Services [address] [place] [address] Verdana 4d Chest without Contrast MR#: [id number] Acct: [id number] Name: CARL MosquedaAMY LINN Rep #: [id number] : 1965 F 50 From: Ismael Mejia DO PCP: Marcelle Daley DO Status: REG CLI Study: Chest without Contrast Date of Exam: 11/10/15 Exam# [id number] Ordering Dr: Mabel Daley ra, DO STUDY: [...] Ismael Mejia DO at 21:20 EDT Tel [phone], Service support [phone], CC: Marcelle Daley DO Head Of Visual Merchandising: Signed 10-Nov-2015 Thyroid Result: Comments: See Note; NOTES: [facility] Imaging Services [address] [place] [address] Verdana 4d Thyroid MR#: [id number] Acct: [id number] Name: AMY VALDOVINOS Rep #: [id number] : 1965 F 50 From: Jono Dumont MD PCP: Marcelle Daley DO Status: REG CLI Study: Thyroid Date of Exam: 11/10/15 Exam# [id number] Ordering Dr: Marcelle Daley DO STUDY: THYROI [...] Jono swann MD at 10:10 EDT Tel [phone], Service support [phone], CC: Marcelle Daley DO Head Of Visual Merchandising: Signed 08-Sep-2015 EKG (02403) Comments: ekg showed normal sinus rhythym, left axis, no acute st/t wave changes lv strain Result: [MEASUREMENTS ANALYSIS] Date of Test: 09/08/2015 12:10:48; Heart Rate: 55; MI Interval: 164; QRS: 114; QT Interval: 462; Corrected QT Interval (QTc): 454; P Wave Wheaton: 34; QRS Wave [place]: -29; T Wave Axi s: -16; Blood Pressure: 148/98 [ECG DIAGNOSTIC STATEMENTS] Date of Test: 09/08/2015 12:10:48; Summary: Sinus Bradycardia -Left axis. Voltage criteria for LVH (S(V1)+R(V6) exceeds 3.50 mV). -Nonspeci fic ST depression -Seen with left ventricular hypertrophy (strain) or digitalis effect. ABNORMAL 26-May-2015 Bilat Scrn Digital AND CAD Result: Comments: See Note; NOTES: [facility] Imaging Services [address] [place] [address] Breast Imaging Report MR#: [id number] Acct: [id number] Name: AMY VALDOVINOS Rep #: [id number] : 1965 F 50 From: Jono Dumont MD PCP: Marcelle Daley DO Status: REG CLI Study: Bilat Scrn Digital AND CAD Date of Exam: 05/26/15 Exam# [id number] Ordering Dr: Marcelle Daley DO MAMMOGRAPHY - [...] Jono Dumont MD at 15:40 EDT Tel [phone], Service support [phone], CC: Marcelle Daley DO Head Of Visual Merchandising: Signed 18-May-2015 Chest PA and Lateral Result: Comments: See Note; NOTES: [facility] Imaging Services [address] [place] [address] Radiology Report MR#: [id number] Acct: [id number] Name: AMY VALDOVINOS Rep #: [id number] : 1965 F 49 From: Jono Dumnot MD PCP: Marcelle Daley DO Status: REG CLI Study: Chest PA and Lateral Date of Exam: 05/18/15 Exam# [id number] Ordering Dr: Vivian [place] STUDY: X-RA Y [...] Jono Dumont MD at 14:19 EDT Tel [phone], Service support [phone], RAD/Chest PA and Lateral IMPRESSION: No acute abnormality is seen. Electronically Signed: Jono Dumont MD at 14:19 EDT Tel [phone], Service support [phone], CC: Vivian [place]; Marcelle Daley DO Head Of Visual Merchandising: Signed 15-Jan-2015 Chest PA and Lateral Result: Comments: See Note; NOTES: [facility] Imaging Services [address] [place] [address] Radiology Report MR#: [id number] Acct: [id number] Name: AMY VALDOVINOS Rep #: [id number] : 1965 F 49 From: Shine Sawyer MD PCP: Marcelle Daley DO Status: REG CLI Study: Chest PA and Lateral Date of Exam: 01/15/15 Exam# [id number] Ordering Dr: Jing Harrison DO STUDY : [...] MD at 23:41 EDT , Service support [phone], RAD/Chest PA and Lateral IMPRESSION: Normal x-ray examination of the chest. Electronically Signed: Shine Sawyer MD at 23:41 E DT , Service support [phone], CC: Marcelle Daley DO; Jing Harrison DO Head Of Visual Merchandising: Signed 15-Jan-2015 Inhaler Demo (46891) Result: Comments: I instructed pt to use inhaler, then she redemonstrated the technique back to me. 28-May-2015 Spirometry (42903) Comments: obsrtuction present Result: 29-Oct-2014 Abdomen WITH and W/O Contrast Result: Comments: See Note; NOTES: [facility] Imaging Services [address] [place] [address] MRI Report MR#: [id number] Acct: [id number] Name: AMY VALDOVINOS Rep #: [id number] : 1965 F 49 From: Heavenly Rojas MD PCP: Marcelle Daley DO Status: REG CLI Study: Abdomen WITH and W/O Contrast Date of Exam: 10/29/14 Exam# [id number] Ordering Dr: Stanton Caal MD STUDY: M [...] at 1 1:15 EDT , Service support [phone], CC: Marcelle Daley DO; Stanton Caal MD Head Of Visual Merchandising: Signed 23-Jun-2014 Esophagus Only Result: Comments: See Note; NOTES: [facility] Imaging Services [address] [place] [address] Radiology Report MR#: [id number] Acct: [id number] Name: AMY VALDOVINOS Rep #: [id number] : 1965 F 49 From: Jono Dumont MD PCP: Status: REG CLI Study: Esophagus Only Date of Exam: 06/23/14 Exam# [id number] Ordering Dr: Jing Harrison DO STUDY: X-RAY [...] Jono Dumont MD at 9:21 EST Tel [phone], Service support , RAD/Esophagus Only IMPRESSION: Small sliding hiatal hernia with no evidence of gastroesophageal reflux. Electronically Signed: Jono Dumont MD at 9:21 EST Tel [phone], Service support [phone], CC: Jing Harrison DO Head Of Visual Merchandising: Signed 23-Jun-2014 Thyroid Result: Comments: See Note; NOTES: [facility] Imaging Services [address] [place] [address] Ultrasound Report MR#: [id number] Acct: [id number] Name: AMY VALDOVINOS Rep #: [id number] : 1965 F 49 From: Jono Dumont MD PCP: Status: REG CLI Study: Thyroid Date of Exam: 06/23/14 Exam# [id number] Ordering Dr: Jing Harrison DO STUDY: THYROID [...] lobes of the thyroid. Correlation with a [facility] thyroid uptake and scan is recommended. Electronically Signed: Jono Dumont MD at 15:38 EST Tel [phone], Service support [phone], C C: Jing Harrison DO Head Of Visual Merchandising: Signed 30-Nov-2013 Abdomen/Pelvis WITH Contrast Result: Comments: See Note; NOTES: [facility] Imaging Services [address] [place] [address] CAT Scan Report MR#: [id number] Acct: [id number] Name: AMY VALDOVINOS Rep #: [id number] : 1965 F 48 From: Jesse Carrington MD PCP: Marcelle Daley DO Status: REG CLI Study: Abdomen/Pelvis WITH Contrast Date of Exam: 11/30/13 Exam# [id number] Ordering Dr: Vivian [place] STUDY: CT ABDOMEN [...] Dr. Iglesia Lee M.D.; Stanton Caal MD Head Of Visual Merchandising: Signed 26-Nov-2013 Kidney and Bladder Result: Comments: See Note; NOTES: [facility] Imaging Services [address] [place] [address] Ultrasound Report MR#: [id number] Acct: [id number] Name: AMY VALDOVINOS Rep #: [id number] : 1965 F 48 From: Jono Dumont MD PCP: Marcelle Daley DO Status: REG CLI Study: Kidney and Bladder Date of Exam: 11/26/13 Exam# [id number] Ordering Dr: Vivian [place] STUDY: RENAL ULTRASOUND [...] at 12:56 EDT Tel , Service support [phone], CC: Vivian Daley DO Head Of Visual Merchandising: Signed 31-May-2013 Knee 4 or More Views Result: Comments: See Note; NOTES: [facility] Imaging Services [address] [place] [address] Radiology Report MR#: [id number] Acct: [id number] Name: AMY VALDOVINOS Rep #: [id number] : 1965 F 48 From: Jono Dumont MD PCP: Status: REG CLI Study: Knee 4 or More Views Date of Exam: 05/31/13 Exam# [id number] Ordering Dr: Vivian [place] STUDY: X-RAY - [...] May 31, 2013 at 1:16:23 PM EDT [phone] Electronically Signed GP/GP If you are the referring physician and would like to consult with the radiologist w ho provided this interpretation, please contact Jono Dumont M.D. at [phone]. If this radiologist is unavailable, you will be directed to another radiologist to assist. If you are a veronica ent with a question regarding this report, please contact your referring physician directly. Professional Interpretation Provided By: [employer], Phone , These docum ents contain legally [...] destruction of these documents. 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.5 Status: Active No Drug [...] kg/m2 Body Surface Area Calculated 2.19 m2 : Temperature 97.4 f Comments: Method: [...] 2.21 m2 Results Date Description Value Details [id number]:05 Urinalysis, Office (06973) UA - LEUKOCYTE ESTERASE Negative (Normal) UA - NITRITE Negative (Normal) URINE UROBILINGN JUAN TIMED Normal mg/dL (Normal) UA - PROTEIN Negative mg/dL (Normal) UA - PH 6 (Abnormal) UA - BLOOD Negative (Normal) UA - SPECIFIC GRAVITY 1.010 (Normal) UA - KETONES Negative mg/dL (Normal) UA - BILIRUBIN Negative (Normal) UA - GLUCOSE Negative (Normal) 8-Xuu-464859:26 Free K+L Lt Chains,Qn,S Comments: PATIENT NOT FASTINGPERFORMED BY: [employer] [id number] [facility] [id number]; appt 08/20 University/Lambda Ratio,S 1.10 (Normal) Range: 0.26-1.65 Free Lambda Lt Chains,S 10.6 mg/L (Normal) Range: 5.7-26.3 Free University Lt Chains,S 11.7 mg/L (Normal) Range: 3.3-19.4 Please note SPRCS (Normal) Comments: PATIENT NOT FASTINGPERFORMED BY: [employer] [id number] [facility] [id number] :26 Comments: We have received your request for additional testing or testverification. You will be notified if we are unable to processyour request. Written Authorization WAR (Normal) Comments: PATIENT NOT FASTINGPERFORMED BY: [facility] [facility] [id number] :26 Comments: Written Authorization Received.Authorization received from Written Request [id number] by Greta Milligan 7-Ljd-610004:26 urine immunofixation (28208) Comments: PATIENT NOT FASTINGPERFORMED BY: [facility]6370 [facility] [id number] DIANNA Interpretation:U UPEIP (Normal) Comments: No monoclonality detected. 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 92-Pve-602968:39 RHEUMATOID FACTOR-QUANT Comments: send copy to Dr. Evelio Kaur [phone]; A courtesy copy of this report has been sent [phone].PATIENT NOT FASTINGPERFORMED BY: [facility] [id number] (71746) RA Latex Turbid. <10.0 {IU/mL} (Normal) Range: 0.0-13.9 :39 IMMUNOFIXATION, SERUM (25374) Comments: send copy to Dr. Evelio Kaur [phone]; A courtesy copy of this report has been sent [phone].PATIENT NOT FASTINGPERFORMED BY: [facility] [id number] remington Information: FX DR MEIER [phone] Immunoglobulin M, Qn, Serum 43 mg/dL (Normal) Range: 26-217 Immunoglobulin A, Qn, Serum 356 mg/dL (Abnormal) Range: 87-352 Immunoglobulin G, Qn, Serum 969 mg/dL (Normal) Range: 700-1600 Immunofixation Result, Serum IFEAL (Normal) Comments: Immunofixation shows IgA monoclonal protein with lambda light chainspecificity. :39 HIV-1 ANTIBODY (51157) Comments: send copy to Dr. Evelio Kaur [phone]; A courtesy copy of this report has been sent [phone].PATIENT NOT FASTINGPERFORMED BY: [facility]riendsEast [facility] Medical CenterCbqzjv5127 [facility] [id number] HIV Screen 4th Generation wRfx Non Reactive (Normal) 30-Tgu-835662:39 HEPATITIS C ANTIBODY (02513) Comments: send copy to Dr. Evelio Kaur [phone]; A courtesy copy of this report has been sent [phone].PATIENT NOT FASTINGPERFORMED BY: [facility] Kvsmcc6939 [facility] [id number] Hep C Virus Ab <0.1 {s/co_ratio} (Normal) Range: 0.0-0.9 Comments: Negative: < 0.8 Indeterminate: 0.8 - 0.9 Positive: > 0.9 . The CDC recommends that a positive HCV antibody result be followed up with a HCV Nucleic Acid Amplification test (631380). :39 FOLIC ACID SERUM (61363) Comments: send copy to Dr. Evelio Kaur [phone]; A courtesy copy of this report has been sent [phone].PATIENT NOT FASTINGPERFORMED BY: [facility]riendsEast [facility] Medical CenterAxkfxo7306 [facility] [id number] Folate (Folic Acid), Serum 14.3 ng/mL (Normal) Comments: A serum folate concentration of less than 3.1 ng/mL isconsidered to represent clinical deficiency. 42-Bjq-414250:39 ANTIEXTARACT NUCLEAR AG 6338 Comments: send copy to Dr. Evelio Kaur [phone]; A courtesy copy of this report has been sent [phone].PATIENT NOT FASTINGPERFORMED BY: [facility]6370 [facility] [id number] (88770) Up Antibodies <0.2 {AI} (Normal) Range: 0.0-0.9 SURVEYOR HELPER ROD Antibodies <0.2 {AI} (Normal) Range: 0.0-0.9 :39 LOLITA (ANTINUCLEAR ANTIBODY) Comments: send copy to Dr. Evelio Kaur [phone]; A courtesy copy of this report has been sent [phone].PATIENT NOT FASTINGPERFORMED BY: [facility] Ndicht5179 [place] [facility] [id number] (74015) LOLITA Direct Negative (Normal) 25-Jul-20189:13 Vitamin B-12 (cyanocobalamin) Comments: PATIENT WAS FASTINGPERFORMED BY: [facility] Npkeld0165 [facility] [id number] (66224) Vitamin B12 341 pg/mL (Normal) Range: 232-1245 :13 CBC with auto diff (48529) Comments: PATIENT WAS FASTINGPERFORMED BY: [facility] Fltedz1947 [facility] [id number]; appt 07/27 Immature Grans (Abs) 0.0 {x10E3/uL} [...] PANEL, COMPREHENSIVE Comments: PATIENT WAS FASTINGPERFORMED BY: Hotreader6370 [facility] [id number] (50280) ALT (SGPT) 19 [iU]/L (Normal) Range: 0-32 [...] Glucose 80 mg/dL (Normal) Range: 65-99 :13 AEPNI-AZRHHHFVRRF-PXFYD (97756) Comments: PATIENT WAS FASTINGPERFORMED BY: Hotreader6370 [facility] [id number] AFP, Serum, Tumor Marker 3.6 ng/mL (Normal) Range: 0.0-8.3 Comments: Ozzie ECLIA methodology 05-Svd-769908:05 URINE KENROY CULTURE-IDENTIFICATN Comments: PATIENT NOT FASTINGPERFORMED BY: Tru-FriendsEast Orange VA Medical CenterDdqggi3723 [facility] [id number] Information: SRC:UC (14901) Result 1 MUG (Normal) Comments: Mixed urogenital flora1,000 Colonies/mL Urine Culture,Comprehensive Final report (Normal) 38-Xkg-405376:56 Urinalysis, Office (85207) UA - LEUKOCYTE ESTERASE Trace (Normal) UA - NITRITE Negative (Normal) URINE UROBILINGN JUAN TIMED Normal mg/dL (Normal) UA - PROTEIN Trace mg/dL (Normal) UA - PH 5 (Abnormal) UA - BLOOD Negative (Normal) UA - SPECIFIC GRAVITY 1.030 (Abnormal) UA - KETONES Negative mg/dL (Normal) UA - BILIRUBIN Small (Normal) UA - GLUCOSE Negative (Normal) 81-Wdg-422706:28 CBC, PLATELETS & AUT DIFF Comments: PATIENT WAS FASTINGPERFORMED BY: [facility] Yxpqgp6113 [facility] [id number] (77352) Immature Grans (Abs) 0.0 {x10E3/uL} (Normal) Range: [...] B-12 (CYANOCOBALAMIN) Comments: PATIENT WAS FASTINGPERFORMED BY: [facility] Rmxcrd9101 [address] RoadDublin [place] [id number] (16217) Vitamin B12 413 pg/mL (Normal) Range: 232-1245 :28 Vitamin D Hydroxy (17661) Comments: PATIENT WAS FASTINGPERFORMED BY: [facility] Vythvj9339 [address]aca RoadDublin [place] [id number] Vitamin D, 25-Hydroxy 52.6 ng/mL (Normal) Range: 30.0-100.0 Comments: Vitamin D deficiency has been defined by the [place] ofParkview Healthcine and an Endocrine Society practice guideline as alevel of serum 25-OH vitamin D less than 20 ng/mL (1,2).The Endocrine Society went on to further define vitamin Dinsufficiency as a level between 21 and 29 ng/mL (2).1. IOM ([place] of Medicine). 2010. Dietary reference intakes for calcium and D. [place]: The National Academies Press.2. Myla MF, Javier NC, Panfilo MANN, et al. Evaluation, treatment, and prevention of vitamin D deficiency: an Endocrine Society clinical practice guideline. JCEM. 2010; 96(7):1911-30. :28 LIPID PANEL (31988) Comments: PATIENT WAS FASTINGPERFORMED BY: [facility]Co Epfsgr1480 [address]aca RoadDublin [place] [id number] LDL/HDL Ratio 1.3 {ratio} (Normal) Range: 0.0-3.2 Comments: LDL/HDL Ratio Men Women 1/2 Avg.Risk 1.0 1.5 Av g.Risk 3.6 3.2 2X Avg.Risk 6.2 5.0 3X Avg.Risk 8.0 6.1 LDL Cholesterol Calc 51 mg/dL (Normal) Range: 0-99 VLDL Cholesterol [place] 11 mg/dL (Normal) Range: 5-40 HDL Cholesterol 38 mg/dL (Abnormal) Triglycerides 55 mg/dL (Normal) Range: 0-149 Cholesterol, Total 100 mg/dL (Normal) Range: 100-199 03-Xly-392464:38 HgA1C , Office (21328) HgA1C , Office 6.1 % (Normal) Range: 4.6 - 7.1 42-Aie-708088:28 HGB A1C (42477) Comments: PATIENT WAS FASTINGPERFORMED BY: [employer] [facility] [id number] Hemoglobin A1c 5.6 % (Normal) Range: 4.8-5.6 Comments: . Prediabetes: 5.7 - 6.4 Diabetes: >6.4 Glycemic control for adults with diabetes: <7.0 64-Nvm-688803:28 RIOYQ-YOGFYSWLIDK-FZZRR (90474) Comments: PATIENT WAS FASTINGPERFORMED BY: [employer] [facility] [id number] AFP, Serum, Tumor Marker 3.6 ng/mL (Normal) Range: 0.0-8.3 Comments: Ozzie ECLIA methodology :28 MICROALBUMIN: CREATININE RATIO Comments: PATIENT WAS FASTINGPERFORMED BY: [employer] [facility] [id number] (51127) AND (48015) Alb/Creat Ratio 4.1 {mg/g_creat} (Normal) Range: 0.0-30.0 Albumin, Urine 5.8 ug/mL (Normal) Creatinine, Urine 139.9 mg/dL (Normal) :28 METABOLIC PANEL, COMPREHENSIVE Comments: PATIENT WAS FASTINGPERFORMED BY: [employer] [facility] [id number]; review at 05/07 appt (10429) ALT (SGPT) 19 [iU]/L (Normal) Range: 0-32 [...] mg/dL (Normal) Range: 65-99 23-Jan-20188:21 LIPID PANEL (01779) Comments: PATIENT WAS FASTINGPERFORMED BY: [facility]Southwest [facility] Center6370 [facility] [id number] LDL/HDL Ratio 1.6 {ratio} (Normal) Range: 0.0-3.2 [...] Range: 100-199 23-Jan-20188:21 CBC W/AUTO DIFF WBC (71459) Comments: PATIENT WAS FASTINGPERFORMED BY: LabCoEast Orange VA Medical CenterDifmum1867 [facility] [id number]; review on 01/31 Immature Grans (Abs) 0.0 [...] PANEL, COMPREHENSIVE Comments: PATIENT WAS FASTINGPERFORMED BY: LabCoEast Orange VA Medical CenterQopxmq7732 [facility] [id number] (33955) ALT (SGPT) 18 [iU]/L (Normal) Range: 0-32 [...] 6-24 Glucose 98 mg/dL (Normal) Range: 65-99 36-Uvv-734874:22 TSH (28374) Comments: PATIENT NOT FASTINGPERFORMED BY: CB [facility] Xavryr4832 [facility] [id number] TSH 1.150 {uIU/mL} (Normal) Range: 0.450-4.500 69-Vzy-466595:22 SED RATE ERYTHROCYTE (99666) Comments: PATIENT NOT FASTINGPERFORMED BY: [facility] Xghvrh8782 [facility] [id number] Sedimentation Rate-Westergren 8 mm/h (Normal) Range: 0-40 02-Foj-891784:22 C-REACTIVE PROTEIN (84946) Comments: PATIENT NOT FASTINGPERFORMED BY: [facility] Ryntjc8417 [address] RoadDublin [place] [id number] C-Reactive Protein, Quant 2.5 mg/L (Normal) Range: 0.0-4.9 05-Efg-940178:22 LOLITA (ANTINUCLEAR ANTIBODY) Comments: PATIENT NOT FASTINGPERFORMED BY: [facility] Spyhpi1043 [address] RoadDublin [place] [id number] (50982) LOLITA Direct Negative (Normal) 93-Lvf-965199:22 VITAMIN B-12 (CYANOCOBALAMIN) Comments: PATIENT NOT FASTINGPERFORMED BY: [facility] Solocm5091 [address]aca RoadWyldfireblin [place] [id number] (81034) Vitamin B12 340 pg/mL (Normal) Range: 232-1245 72-Gtk-685883:22 IRON (42891) Comments: PATIENT NOT FASTINGPERFORMED BY: [facility] Jyiijo8844 [address] RoadDublin [place] [id number] Iron, Serum 57 ug/dL (Normal) Range: 27-159 83-Bfx-262567:22 FERRITIN (27706) Comments: PATIENT NOT FASTINGPERFORMED BY: [facility] Fdhkjc3115 [address] RoadDublin [place] [id number] Ferritin, Serum 220 ng/mL (Abnormal) Range: 15-150 40-Yuw-973654:27 Albumin/Creatinine Comments: PATIENT WAS FASTINGPERFORMED BY: [facility] Wfrnrc1830 [address] RoadDublin [place] [id number] BY: KIWATCH[address] [id number] Ratio,Urine Alb/Creat Ratio 5.5 {mg/g_creat} (Normal) Range: 0.0-30.0 Albumin, Urine 9.6 ug/mL (Normal) Creatinine, Urine 176.1 mg/dL (Normal) 77-Ilo-771564:27 Vitamin D Hydroxy Comments: PATIENT WAS FASTINGPERFORMED BY: [facility] Rrvqwp7344 [address] RoadDublin [place] [id number] BY: [employer] [address] [id number] (70007) Vitamin D, 25-Hydroxy 44.1 ng/mL (Normal) Range: 30.0-100.0 Comments: Vitamin D deficiency has been defined by the [place] ofParkview Healthcine and an Endocrine Society practice guideline as alevel of serum 25-OH vitamin D less than 20 ng/mL (1,2).The Endocrine Society went on to further define vitamin Dinsufficiency as a level between 21 and 29 ng/mL (2).1. IOM ([place] of Medicine). 2010. Dietary reference intakes for calcium and D. [place]: The National Academies Press.2. Myla MF, Javier NC, Panfilo MANN, et al. Evaluation, treatment, and prevention of vitamin D deficiency: an Endocrine Society clinical practice guideline. JCEM. 2010; 96(7):1911-30. 58-Rbo-117567:27 HGB A1C (25404) Comments: PATIENT WAS FASTINGPERFORMED BY: Snapette [facility] [id number] BY: [employer] [address] [id number] Hemoglobin A1c 5.7 % (Abnormal) Range: 4.8-5.6 Comments: . Pre-diabetes: 5.7 - 6.4 Diabetes: >6.4 Glycemic control for adults with diabetes: <7.0 05-Rrk-622932:27 DMSKQ-CZUAPRDPJJH-ROQUH (45834) Comments: PATIENT WAS FASTINGPERFORMED BY: Amvona70 [address] [facility] [id number] BY: [employer] [address] [id number] AFP, Serum, Tumor Marker 4.0 ng/mL (Normal) Range: 0.0-8.3 Comments: Ozzie ECLIA methodology 51-Ssd-427942:27 METABOLIC PANEL, Comments: PATIENT WAS FASTINGPERFORMED BY: Hotreader6370 [place] [facility] [id number] BY: Tru-Friends[address] [id number] RUST (32907) ALT (SGPT) 21 [iU]/L (Normal) Range: 0-32 [...] Glucose, Serum 84 mg/dL (Normal) Range: 65-99 04-Zaq-193094:27 CBC with auto diff Comments: PATIENT WAS FASTINGPERFORMED BY: CB [facility] Hidanh4941 [facility] [id number] BY: BN [facility] [address] [id number] (61585) Immature Grans (Abs) 0.0 {x10E3/uL} (Normal) Range: [...] 3.77-5.28 WBC 7.7 {x10E3/uL} (Normal) Range: 3.4-10.8 66-Shk-577685:27 LIPID PANEL (47237) Comments: PATIENT WAS FASTINGPERFORMED BY: CB [facility] [address] [id number] BY: BN [facility] [address] [id number] LDL/HDL Ratio 1.5 {ratio_units} (Normal) Range: 0.0-3.2 Comments: LDL/HDL Ratio Men Women 1/2 Avg.Risk 1.0 1.5 Av g.Risk 3.6 3.2 2X Avg.Risk 6.2 5.0 3X Avg.Risk 8.0 6.1 LDL Cholesterol Calc 69 mg/dL (Normal) Range: 0-99 VLDL Cholesterol [place] 17 mg/dL (Normal) Range: 5-40 HDL Cholesterol 46 mg/dL (Normal) Triglycerides 85 mg/dL (Normal) Range: 0-149 Cholesterol, Total 132 mg/dL (Normal) Range: 100-199 73-Bfh-408104:27 IGA/IGD/IGG/IGM-EACH (61633) Comments: PATIENT WAS FASTINGPERFORMED BY: LabCoEast Orange VA Medical CenterHkqsfp4591 [facility] [id number] BY: LabCo[address] [id number] Immunoglobulin E, Total 18 {IU/mL} (Normal) Range: 0-100 Immunoglobulin M, Qn, Serum 43 mg/dL (Normal) Range: 26-217 Immunoglobulin A, Qn, Serum 332 mg/dL (Normal) Range: 87-352 Immunoglobulin G, Qn, Serum 848 mg/dL (Normal) Range: 700-1600 1-Oga-383302:23 METABOLIC PANEL, COMPREHENSIVE Comments: PATIENT NOT FASTINGPERFORMED BY: Tru-FriendsEast Orange VA Medical CenterGygewk1505 [facility] [id number] (51691) ALT (SGPT) 16 [iU]/L (Normal) Range: 0-32 [...] mg/dL (Normal) Range: 65-99 :10 RUBEOLA IgG (02479) Comments: PATIENT NOT FASTINGPERFORMED BY: KIWATCHCo Slekua2811 [facility] [id number] Rubeola Ab, IgG 44.9 AU/mL (Normal) Comments: Negative <25.0 Equivocal 25.0 - 29.9 Positive >29.9 Presence of antibodies to Rubeola is presumptive evidence of immunity except when acute infection is suspected. :10 RUBELLA IgG (22855) Comments: PATIENT NOT FASTINGPERFORMED BY: KIWATCHCo Algval8954 [facility] [id number] Rubella Antibodies, IgG 17.40 {index} (Normal) Comments: Non-immune <0.90 Equivocal 0.90 - 0.99 Immune >0.99 :10 MUMPS IgG (88235) Comments: PATIENT NOT FASTINGPERFORMED BY: [facility] Wtszvz8323 [facility] [id number] Mumps Abs, IgG >300.0 AU/mL (Normal) Comments: Negative <9.0 Equivocal 9.0 - 10.9 Positive >10.9 A positive result genera lly indicates past exposure to Mumps virus or previous vaccination. 8-Ojz-526390:23 HEPATITIS C ANTIBODY (02210) Comments: PATIENT NOT FASTINGPERFORMED BY: [facility]South[facility] Center6370 [facility] [id number] Hep C Virus Ab 0.1 {s/co_ratio} (Normal) Range: 0.0-0.9 Comments: Negative: < 0.8 Indeterminate: 0.8 - 0.9 Positive: > 0.9 . The CDC recommends that a positive HCV antibody result be followed up with a HCV Nucleic Acid Amplification test (478527). :07 AFP, Tumor Marker Comments: Is Patient ? [facility] (refer to report for specific site)refer to report for address and phone number AFP TUMOR 2253 3.9 ng/mL (Normal) Range: 0.0-8.3 Comments: Ozzie ECLIA methodologyPerformed at: CB - [facility] [address] [id number] Director: Harjinder Houston PhD, Phone: [phone] 15-Tcw-804781:07 Comprehensive Metabolic Profil Comments: [facility] Sdhcithvbx[address] [place], [address] GAP 6 (Normal) Range: 5-15 CO2 27.0 [...] 7-18 GLU 80 mg/dL (Normal) Range: 70-110 51-Jge-802889:07 Hemoglobin A1c Comments: [facility] Spwybanron6834 Jennifer Guo ADONAY [place], [id number] HGB A1C 5.9 % (Normal) Range: 4.2-6.3 79-Sya-819084:07 Lipid Profile Comments: [facility] Fjaasvpywo8494 [address]. ADONAY [place], [id number] VLDL 18 mg/dL (Normal) Range: 5-40 LDL [...] 200-240 mg/dL Borderline >240 mg/dL High Risk 02-Plu-249277:07 Thyroid Stim Hormone (TSH) Comments: [facility] Brldzyyrzo[address] [place], [address] TSH 1.11 {uIU/mL} (Normal) Range: 0.358-3.74 :07 Vitamin B12 401 pg/mL (Normal) Comments: [facility] Opwohswcer6015 [address]. [place]ON[place] Chan, [id number] Range: 211-911 37-Uxq-447213:07 Vitamin D,25 Hydroxy Comments: [facility] Iderwiugne6808 [address] Jimene[address]. [place], [id number] Vitamin D 25-OH 37.7 ng/mL (Normal) Comments: Vitamin D 25(OH) Status Range Deficiency <20 ng/mL (50nmol/L) Insuffciency 20 - 30 ng/mL (50 - 75 nmol/L) Sufficiency 30 - 100 ng/mL (75 - 250 nmol/L) Toxicity >100 ng/mL (>250 nmol/L) 45-Nhg-464337:54 TSH (50336) Comments: PATIENT WAS FASTINGPERFORMED BY: [facility] Yontxk4881 [address] RoadDublin [place] [id number] TSH 1.440 {uIU/mL} (Normal) Range: 0.450-4.500 95-Wnv-926002:54 VITAMIN B-12 (CYANOCOBALAMIN) Comments: PATIENT WAS FASTINGPERFORMED BY: [facility] Dylubp8793 [address] RoadDublin [place] [id number] (11102) Vitamin B12 273 pg/mL (Normal) Range: 211-946 3-Uhe-193093:47 Vitamin D Hydroxy Comments: PATIENT WAS FASTINGPERFORMED BY: Tru-Friends[address] [id number] BY: [facility] Rtvlih7780 [address] RoadDublin [place] [id number] (28067) Vitamin D, 25-Hydroxy 29.6 ng/mL (Abnormal) Range: 30.0-100.0 Comments: Vitamin D deficiency has been defined by the [place] ofMedicine and an Endocrine Society practice guideline as alevel of serum 25-OH vitamin D less than 20 ng/mL (1,2).The Endocrine Society went on to further define vitamin Dinsufficiency as a level between 21 and 29 ng/mL (2).1. IOM ([place] of Medicine). 2010. Dietary reference intakes for calcium and D. [place]: The National Academies Press.2. Myla MF, Javier STUART, Panfilo MANN, et al. Evaluation, treatment, and prevention of vitamin D deficiency: an Endocrine Society clinical practice guideline. JCEM. 2010; 96(7):1911-30. 7-Kcz-408892:47 METABOLIC PANEL, Comments: PATIENT WAS FASTINGPERFORMED BY: KIWATCHElizabeth [place] 585527 [facility] [id number] BY: [facility] Sfdiqc3710 [address] [facility] [place] [id number] COMPREHENSIVE (43632) ALT (SGPT) 21 [iU]/L (Normal) Range: 0-32 [...] Glucose, Serum 87 mg/dL (Normal) Range: 65-99 3-Qom-222095:47 LIPOPROTEIN, BLD, BY NMR Comments: PATIENT WAS FASTINGPERFORMED BY: BN [facility] [address] [id number] BY: CB [facility] Xvkcsz7807 [facility] [id number] Information: [id number], 376985 (69148) LP-IR Score 69 (Abnormal) Comments: INSULIN RESISTANCE [...] were developed and their performance characteristicsdetermined by [employer]. These assays have not been cleared by [...] 1600 - 2000 Very High > 2000 5-Zdo-839748:47 MICROALBUMIN: CREATININE Comments: PATIENT WAS FASTINGPERFORMED BY: LabCoNathaniel Ville 620717 [facility] [id number] BY: [facility]6370 [facility] [id number] RATIO (15851) AND (15916) Microalb/Creat Ratio 10.3 {mg/g_creat} (Normal) Range: 0.0-30.0 Microalbumin, Urine 16.3 ug/mL (Normal) Creatinine, Urine 157.7 mg/dL (Normal) :47 HGB A1C (61435) Comments: PATIENT WAS FASTINGPERFORMED BY: LabTinubu SquareNathaniel Ville 620717 [facility] [id number] BY: [facility]6370 [facility] [id number] Hemoglobin A1c 6.1 % (Abnormal) Range: 4.8-5.6 Comments: . Pre-diabetes: 5.7 - 6.4 Diabetes: >6.4 Glycemic control for adults with diabetes: <7.0 :4 ASPIRATION (SLIDES ONLY) See Note (Normal) Comments: [facility] Qdemwystoc[address] [place], [address] 5 Comments: Patient: AMY VALDOVINOS : 1965 (51/F) Acct Num: [id number] Phys: Devorah DÍAZ,Richar Unit Num: [id number] Loc: LABSPEC Specimen: [id number] Received: 10/07/16 - 1206 Spec Type: ASPIRATION TISSUES TISSUES: COMMENT The specimen is paucicellular and contains rare benign follicular cells and focal chronic inflammatory cells. Clinical correlation is suggested. CYTOLOGY GROSS Received are eight smears labeled with the patient's name and designated per therequisition as FNA left thyroid. Submitted for staining. 10/07/16 TC:5 CPT: 40138 CYTOLOGY STUDY Slides are reviewed. DIAGNOSIS CYTOLOGY Fine needle aspiration, left thyroid nodule (smears): Negative, consistent with colloid nodule. AM:rg 10/10/16 HEADER OPERATION: Ult rasound-guided fine needle aspiration, left thyroid PRE-OP DIAGNOSIS: Multinodular goiter E04.2 TISSUE SUBMITTED: Fine needle aspiration, left thyroid (8 slides) Signed Enio Dhaliwal 10/10/16 <signature on file> 3-Xof-322709:56 [id number]-LOUIU (07161) Comments: PATIENT WAS FASTINGPERFORMED BY: [employer]riends[address] [id number] BY: [employer]6370 [address] RoadDublin [place] [id number] AFP, Serum, Tumor Marker 3.2 ng/mL (Normal) Range: 0.0-8.3 Comments: Ozzie ECLIA methodology 7-Fwb-719520:56 VITAMIN B-12 (CYANOCOBALAMIN) Comments: PATIENT WAS FASTINGPERFORMED BY: [employer] [id number] BY: [employer] Hblwsh6535 [address] RoadDublin [place] [id number] (34948) Vitamin B12 302 pg/mL (Normal) Range: 211-946 9-Ath-253306:56 Vitamin D Hydroxy Comments: PATIENT WAS FASTINGPERFORMED BY: LabTinubu Square[address] [id number] BY: LabTinubu SquareSocorro General HospitalDioppt0227 [address] RoadDublin [place] [id number] (65971) Vitamin D, 25-Hydroxy 25.1 ng/mL (Abnormal) Range: 30.0-100.0 Comments: Vitamin D deficiency has been defined by the [place] ofMedicine and an Endocrine Society practice guideline as alevel of serum 25-OH vitamin D less than 20 ng/mL (1,2).The Endocrine Society went on to further define vitamin Dinsufficiency as a level between 21 and 29 ng/mL (2).1. IOM ([place] of Medicine). 2010. Dietary reference intakes for calcium and D. [place]: The National Academies Press.2. Myla MF, Javier STUART, Panfilo MANN, et al. Evaluation, treatment, and prevention of vitamin D deficiency: an Endocrine Society clinical practice guideline. JCEM. 2010; 96(7):1911-30. 4-Czb-700733:56 CBC W/AUTO DIFF WBC Comments: PATIENT WAS FASTINGPERFORMED BY: [employer]riends[address] [id number] BY: LabCoEast Orange [facility] Medical CenterKcpkyq0301 [facility] [id number] (73220) Immature Grans (Abs) 0.0 {x10E3/uL} (Normal) Range: [...] 3.77-5.28 WBC 9.9 {x10E3/uL} (Normal) Range: 3.4-10.8 1-Oqe-570691:56 METABOLIC PANEL, Comments: PATIENT WAS FASTINGPERFORMED BY: LabCo[address] [id number] BY: LabPeter Ville 7307170 [facility] [id number] COMPREHENSIVE (67109) ALT (SGPT) 18 [iU]/L (Normal) Range: 0-32 [...] Glucose, Serum 89 mg/dL (Normal) Range: 65-99 8-Xzf-111588:56 LIPOPROTEIN, BLD, BY NMR Comments: PATIENT WAS FASTINGPERFORMED BY: Lab[address] [id number] BY: [place] 2949270 [facility] [id number] (71912) LP-IR Score 66 (Abnormal) Comments: INSULIN RESISTANCE MARKER <--Insulin Sensitive Insulin Resistant--> Percentile in Reference PopulationInsulin Resistance ScoreLP-IR Score Low 25th 50th 75th High <27 27 45 63 >63LP-IR Score is inaccurate if patient is non-fasting. .The LP-IR score is a laboratory developed i syeda that has beenassociated with insulin resistance and [...] were developed and their performance characteristicsdetermined by [employer]. These assays have not been cleared by [...] 1600 - 2000 Very High > 2000 2-Kid-002493:10 HgA1C , Office (02485) HgA1C , Office 5.8 % (Normal) Range: 4.6 - 7.1 2-Kop-518127:10 Blood Glucose , Office (39603) Blood Glucose , Office 80 (Normal) 15-Zjv-201581:18 Magnesium (12198) Comments: PATIENT NOT FASTINGPERFORMED BY: [facility] [id number] Magnesium, Serum 2.3 mg/dL (Normal) Range: 1.6-2.3 :35 FMTDM-DSZYRTCXJKD-RIUOL (20324) Comments: PATIENT WAS FASTINGPERFORMED BY: Hotreader6370 [facility] [id number] AFP, Serum, Tumor Marker 3.0 ng/mL (Normal) Range: 0.0-8.3 Comments: Ozzie ECLIA methodology :35 CBC W/AUTO DIFF WBC Comments: PATIENT WAS FASTINGPERFORMED BY: Amvona70 [facility] [id number] Information: [id number] (91449) Immature Grans (Abs) 0.0 {x10E3/uL} (Normal) Range: [...] 3.77-5.28 WBC 7.4 {x10E3/uL} (Normal) Range: 3.4-10.8 67-Ucx-11205:35 METABOLIC PANEL, COMPREHENSIVE Comments: PATIENT WAS FASTINGPERFORMED BY: [facility] Khupdg8185 [facility] [id number] (43192) ALT (SGPT) 14 [iU]/L (Normal) Range: 0-32 [...] Glucose, Serum 83 mg/dL (Normal) Range: 65-99 88-Nmt-120419:10 CBC W/AUTO DIFF WBC Comments: PATIENT WAS FASTINGPERFORMED BY: [facility]6370 [facility] [id number] Information: [id number] (32924) Immature Grans (Abs) 0.0 {x10E3/uL} (Normal) Range: [...] 3.77-5.28 WBC 7.1 {x10E3/uL} (Normal) Range: 3.4-10.8 33-Glo-207755:10 METABOLIC PANEL, COMPREHENSIVE Comments: PATIENT WAS FASTINGPERFORMED BY: CHUY [employer] [facility] [id number] (90515) ALT (SGPT) 14 [iU]/L (Normal) Range: 0-32 [...] Glucose, Serum 79 mg/dL (Normal) Range: 65-99 02-Obh-369380:10 TSH (67820) Comments: PATIENT WAS FASTINGPERFORMED BY: [employer] Fhyvfm1038 [facility] [id number] TSH 0.891 {uIU/mL} (Normal) Range: 0.450-4.500 03-Utz-335020:10 LIPID PANEL (89912) Comments: PATIENT WAS FASTINGPERFORMED BY: [facility] [employer] [facility] [id number] LDL/HDL Ratio 2.0 {ratio_units} Range: 0.0-3.2 (Normal) [...] ONLY) See Note (Normal) Comments: [facility] [address] [place], [address] :50 Comments: Patient: AMY VALDOVINOS : 1965 (50/F) Acct Num: [id number] Phys: Devorah DÍAZ,Richar Unit Num: [id number] Loc: LABSPEC Specimen: [id number] Received: 12/15/15 - [...] Levi 12/16/15 <signature on file> :19 TSH (00040) Comments: PATIENT NOT FASTINGPERFORMED BY: [facility]6370 [facility] [id number] TSH 1.250 {uIU/mL} (Normal) Range: 0.450-4.500 40-Eei-236396:19 T4, FREE (THYROXINE) Comments: PATIENT NOT FASTINGPERFORMED BY: [facility]6370 [facility] [id number] Information: [id number] (39014) T4,Free(Direct) 1.12 ng/dL (Normal) Range: 0.82-1.77 :19 T3, FREE (TRIDOTHYRONINE) (40570) Comments: PATIENT NOT FASTINGPERFORMED BY: [facility]6370 [facility] [id number] Triiodothyronine,Free,Serum 3.3 pg/mL (Normal) Range: 2.0-4.4 37-Ezw-315367:15 SED RATE ERYTHROCYTE (32686) Comments: PATIENT NOT FASTINGPERFORMED BY: [facility]6370 [facility] [id number] Sedimentation Rate-Westergren 6 mm/h (Normal) Range: 0-40 00-Rwh-500578:15 C-REACTIVE PROTEIN (70511) Comments: PATIENT NOT FASTINGPERFORMED BY: [facility]6370 [facility] [id number] C-Reactive Protein, Quant 3.9 mg/L (Normal) Range: 0.0-4.9 80-Kzl-624576:15 METABOLIC PANEL, COMPREHENSIVE Comments: PATIENT NOT FASTINGPERFORMED BY: [facility]6370 [facility] [id number] (53790) ALT (SGPT) 35 [iU]/L (Abnormal) Range: 0-32 [...] Glucose, Serum 76 mg/dL (Normal) Range: 65-99 80-Pct-978665:15 EBV Panel (77919) Comments: PATIENT NOT FASTINGPERFORMED BY: LabCoEast Orange VA Medical CenterKtufdi5541 [facility] [id number] Interpretation: SPRCS (Normal) Comments: EBV Interpretation Chart [...] <36.0 Equivocal 36.0 - 43.9 Positive >43.9 22-Vjj-216154:15 CBC, PLATELETS & MANUAL Comments: PATIENT NOT FASTINGPERFORMED BY: LabCoEast Orange VA Medical CenterYablfg0869 [facility] [id number] Information: [id number] DIFF (05934) Immature Grans (Abs) 0.0 {x10E3/uL} (Normal) Range: [...] 3.77-5.28 WBC 8.8 {x10E3/uL} (Normal) Range: 3.4-10.8 74-Ubq-952495:00 CBC with auto diff Comments: PERFORMED BY: [facility]6370 [facility] [id number] Information: NURSE DRAW (32848) Immature Grans (Abs) 0.0 {x10E3/uL} (Normal) Range: [...] 3.77-5.28 WBC 8.6 {x10E3/uL} (Normal) Range: 3.4-10.8 97-Cio-512711:00 METABOLIC PANEL, COMPREHENSIVE Comments: PERFORMED BY: [facility]6370 [facility] [id number] (12630) ALT (SGPT) 19 [iU]/L (Normal) Range: 0-32 [...] Glucose, Serum 93 mg/dL (Normal) Range: 65-99 86-Jmc-574447:00 LYAHJ-CDGKPFXIXXM-RFEZI (23945) Comments: PERFORMED BY: [employer] [facility] [id number] AFP, Serum, Tumor Marker 3.2 ng/mL (Normal) Range: 0.0-8.3 Comments: Ozzie ECLIA methodology 26-Smo-529250:28 HgA1C , Office (64165) HgA1C , Office 5.9 % (Normal) Range: 4.6 - 7.1 7-Ozd-301896:22 URINE KENROY CULTURE-JUAN COL Comments: PATIENT NOT FASTINGPERFORMED BY: Tru-FriendsEast Orange VA Medical CenterQobwfz1809 [facility] [id number] Information: [place] [place] [id number] COUNT (31019) Result 1 NG36 (Normal) Comments: No growth in 36 - 48 hours. Urine Culture,Comprehensive Final report (Normal) 5-Zkp-869284:36 Urinalysis, Office (12947) UA - LEUKOCYTE ESTERASE Small (Normal) UA - NITRITE Negative (Normal) URINE UROBILINGN JUAN TIMED Normal mg/dL (Normal) UA - PROTEIN Negative mg/dL (Normal) UA - PH 6.5 (Normal) UA - BLOOD Negative (Normal) UA - SPECIFIC GRAVITY 1.005 (Normal) UA - KETONES Negative mg/dL (Normal) UA - BILIRUBIN Negative (Normal) UA - GLUCOSE Negative (Normal) 19-Kso-835469:04 CBC W/AUTO DIFF WBC Comments: PATIENT WAS FASTINGPERFORMED BY: [facility]6370 [facility] [id number] Information: [id number] (57242) Immature Grans (Abs) 0.0 {x10E3/uL} (Normal) Range: [...] PANEL, COMPREHENSIVE Comments: PATIENT WAS FASTINGPERFORMED BY: Amvona70 [facility] [id number] (77828) ALT (SGPT) 20 [iU]/L (Normal) Range: 0-32 [...] Glucose, Serum 74 mg/dL (Normal) Range: 65-99 :04 LIPID PANEL (62531) Comments: PATIENT WAS FASTINGPERFORMED BY: Amvona70 [facility] [id number]; apt. 9-25-15 LDL/HDL Ratio 2.1 {ratio_units} Range: 0.0-3.2 (Normal) Comments: LDL/HDL Ratio Men Women 1/2 Avg.Risk 1.0 1.5 Av g.Risk 3.6 3.2 2X Avg.Risk 6.2 5.0 3X Avg.Risk 8.0 6.1 LDL Cholesterol Calc 96 mg/dL (Normal) Range: 0-99 VLDL Cholesterol Remingtno 12 mg/dL (Normal) Range: 5-40 HDL Cholesterol 45 mg/dL (Normal) Comments: According to ATP-III Guidelines, HDL-C >59 mg/dL is considered anegative risk factor for CHD. Triglycerides 61 mg/dL (Normal) Range: 0-149 Cholesterol, Total 153 mg/dL (Normal) Range: 100-199 AFP, Serum, Tumor 3.0 ng/mL (Normal) Comments: PATIENT WAS FASTINGPERFORMED BY: CHUY [employer] Itgmtt9781 [facility] [id number] 59:38 Marker Range: 0.0-8.3 Comments: Ozzie ECLIA methodology 44-Ajo-86799:38 CBC With Differential/Platelet Comments: PATIENT WAS FASTINGPERFORMED BY: PollVaultrlin6370 [facility] [id number] Information: [id number] Immature Grans (Abs) 0.0 {x10E3/uL} (Normal) Range: [...] Panel (14) Comments: PATIENT WAS FASTINGPERFORMED BY: [facility] CenterCoEast Orange [facility] Medical CenterCryukp7594 [facility] [id number] ALT (SGPT) 13 [iU]/L (Normal) Range: 0-32 [...] % (Abnormal) Comments: PATIENT WAS FASTINGPERFORMED BY: [facility]buy[facility] [id number]; f/u on 02/06 38 Range: 4.8-5.6 Comments: . Increased risk for diabetes: 5.7 - 6.4 Diabetes: >6.4 Glycemic control for adults with diabetes: <7.0 :38 Lipid Panel With LDL/HDL Comments: PATIENT WAS FASTINGPERFORMED BY: [facility]buy[facility] [id number] Ratio LDL/HDL Ratio 3.1 {ratio_units} (Normal) Range: [...] Randm Ur Comments: PATIENT WAS FASTINGPERFORMED BY: [facility]buy[facility] [id number] Microalb/Creat Ratio 19.0 {mg/g_creat} Range: 0.0-30.0 (Normal) Microalbumin, Urine 23.5 ug/mL (Abnormal) Range: 0.0-17.0 Creatinine, Urine 124.0 mg/dL (Normal) Range: 15.0-278.0 05-Feb-2015 Vitamin D, 25-Hydroxy 32.7 ng/mL (Normal) Comments: PATIENT WAS FASTINGPERFORMED BY: [facility] Syghai9082 [address] Cu[address] [place] [id number] 9:38 Range: 30.0-100.0 Comments: Vitamin D deficiency has been defined by the [place] ofMedicine and an Endocrine Society practice guideline as alevel of serum 25-OH vitamin D less than 20 ng/mL (1,2).The Endocrine Society went on to further define vitamin Dinsufficiency as a level between 21 and 29 ng/mL (2).1. IOM ([place] of Medicine). 2010. Dietary reference intakes for calcium and D. [place]: The National Academies Press.2. Myla MF, Javier STUART, Panfilo MANN, et al. Evaluation, treatment, and prevention of vitamin D deficiency: an Endocrine Society clinical practice guideline. JCEM. 2010; 96(7):1911-30. 35-Kjq-616678:49 Comprehensive Metabolic Profil Comments: STAT CREATININE FOR MRITest performed at:[facility] [address] [place] [address] ; Darrick GAP 3 (Abnormal) Range: 5-15 [...] 7-18 GLU 82 mg/dL (Normal) Range: 70-110 37-Hdd-854384:49 Hemoglobin A1c Comments: Test performed at:[facility] [address] [place] [address] [id number] HGB A1C 5.7 % (Normal) Range: 4.2-6.3 48-Qej-612776:49 Lipid Profile Comments: STAT CREATININE FOR MRITest performed at:[facility] [address] [place] [address] [id number] VLDL 25 mg/dL (Normal) Range: 5-40 LDL [...] 200-240 mg/dL Borderline >240 mg/dL High Risk 33-Opo-339758:49 Vitamin D,25 Hydroxy Comments: Test performed at:[facility] X[address] [place] [address] 145821 Vitamin D 25-OH 76.3 ng/mL (Normal) Comments: Vitamin D 25(OH) Status Range Deficiency <20 ng/mL (50nmol/L) Insuffciency 20 - 30 ng/mL (50 - 75 nmol/L) Sufficiency 30 - 100 ng/mL (75 - 250 nmol/L) Toxicity >100 ng/mL (>250 nmol/L) 5-Ixl-363740:15 Culture, Urine Comments: Test performed at:[facility] [address] [place] [address] 30232 CUUR See Note (Normal) Comments: Urine CultureORGANISM 1: Mixed Gram Positive OrganismsColony Count 11,000-25,000MIX CONTAM Mixed Contaminants. Submit new specimen if indicated. 2-Ehp-679783:23 Lipid Panel (43018) Comments: PATIENT WAS FASTINGPERFORMED BY: [facility]6370 [facility] [id number] LDL/HDL Ratio 2.9 {ratio_units} (Normal) Range: 0.0-3.2 [...] Cholesterol, Total 164 mg/dL (Normal) Range: 100-199 5-Dwx-776025:23 Metabolic Panel, Comments: PATIENT WAS FASTINGPERFORMED BY: [facility]6370 [facility] [id number] Information: [id number] Comprehensive (44953) ALT (SGPT) 24 [iU]/L (Normal) Range: 0-32 [...] Glucose, Serum 94 mg/dL (Normal) Range: 65-99 88-Iyr-263146:49 CALCIFEDIOL (23199) Comments: PATIENT NOT FASTINGPERFORMED BY: LabCoEast Orange VA Medical CenterPnwcbu0256 [facility] [id number] Vitamin D, 25-Hydroxy 18.9 ng/mL (Abnormal) Range: 30.0-100.0 Comments: Vitamin D deficiency has been defined by the [place] ofMedicine and an Endocrine Society practice guideline as alevel of serum 25-OH vitamin D less than 20 ng/mL (1,2).The Endocrine Society went on to further define vitamin Dinsufficiency as a level between 21 and 29 ng/mL (2).1. IOM ([place] of Medicine). 2010. Dietary reference intakes for calcium and D. [place]: The National Academies Press.2. Myla MF, Javier NC, Panfilo MANN, et al. Evaluation, treatment, and prevention of vitamin D deficiency: an Endocrine Society clinical practice guideline. JCEM. 2010; 96(7):1911-30. 92-Bra-542518:52 Hemoglobin A1c Comments: Test performed at:[facility] [address] [place], [place] [address] HGB A1C 6.4 % (Abnormal) Range: 4.2-6.3 :52 Lipid Profile Comments: Test performed at:[facility] Gwappxtxnk1959 [facility] [place] [address] VLDL 35 mg/dL (Normal) Range: [...] 200-240 mg/dL Borderline >240 mg/dL High Risk 60-Veo-886833:52 Liver Profile Comments: Test performed at:[facility] [address] [place] [address] D BILI 0.10 mg/dL (Normal) Range: 0.00-0.30 T BILI 0.50 mg/dL (Normal) Range: 0.00-4.00 ALT 43 U/L (Normal) Range: 12-78 ALK P 92 U/L (Normal) Range: 50-136 AST 18 U/L (Normal) Range: 15-37 GLOB 3.5 g/dL (Normal) Range: 2.7-4.2 ALB 4.0 g/dL (Normal) Range: 3.4-5.0 T PROT 7.5 g/dL (Normal) Range: 6.4-8.2 55-Syu-101346:50 Serum Creatinine AND GFR Comments: Has pt arrived? YTest performed at:[facility] [address]omp[address] [place] [address] EST GFR - AA 86 mL/min (Normal) EST GFR 71 mL/min (Normal) CREAT,SERUM 0.9 mg/dL (Normal) Range: 0.6-1.0 41-Zxz-531627:38 Hepatic Function Panel Comments: PATIENT WAS FASTINGPERFORMED BY: [facility] Nuuwqp9249 [facility] [id number] Information: [id number] (7) ALT (SGPT) 36 [iU]/L (Abnormal) Range: 0-32 AST (SGOT) 23 [iU]/L (Normal) Range: 0-40 Alkaline Phosphatase, S 107 [iU]/L (Normal) Range: 39-117 Bilirubin, Direct 0.13 mg/dL (Normal) Range: 0.00-0.40 Bilirubin, Total 0.3 mg/dL (Normal) Range: 0.0-1.2 Albumin, Serum 4.7 g/dL (Normal) Range: 3.5-5.5 Protein, Total, Serum 7.3 g/dL (Normal) Range: 6.0-8.5 01-Jul-2014 Written Authorization WAR (Normal) Comments: PATIENT WAS FASTINGPERFORMED BY: [facility] Wpllcg5481 [facility] [id number] 13:38 Comments: Written Authorization Received.Authorization received from GEORGE OSCAR LPN [id number] by Sandrita Onofre 71-Clf-440381:38 CALCIFEDIOL (85207) Comments: PATIENT WAS FASTINGPERFORMED BY: [facility] Foocbc1398 [facility] [id number] Vitamin D, 25-Hydroxy 30.1 ng/mL (Normal) Range: 30.0-100.0 Comments: Vitamin D deficiency has been defined by the [place] ofMedicine and an Endocrine Society practice guideline as alevel of serum 25-OH vitamin D less than 20 ng/mL (1,2).The Endocrine Society went on to further define vitamin Dinsufficiency as a level between 21 and 29 ng/mL (2).1. IOM ([place] of Medicine). 2010. Dietary reference intakes for calcium and D. [place]: The National Academies Press.2. Myla MF, Javier [place], Panfilo MANN, et al. Evaluation, treatment, and prevention of vitamin D deficiency: an Endocrine Society clinical practice guideline. JCEM. 2010; 96(7):1911-30. 51-Amf-717598:38 LIPID PANEL (94398) Comments: PATIENT WAS FASTINGPERFORMED BY: [facility] Sycbjv7627 [facility]in [place] [id number] Information: [id number] LDL/HDL Ratio 4.2 {ratio_units} (Abnormal) Range: 0.0-3.2 [...] FUNCTION PANEL Comments: PATIENT NOT FASTINGPERFORMED BY: [place] 2949270 [facility] [id number] Information: [id number] (35504) ALT (SGPT) 193 [iU]/L (Abnormal) Range: 0-32 AST (SGOT) 43 [iU]/L (Abnormal) Range: 0-40 Alkaline Phosphatase, S 135 [iU]/L (Abnormal) Range: 39-117 Bilirubin, Direct 0.18 mg/dL (Normal) Range: 0.00-0.40 Bilirubin, Total 0.3 mg/dL (Normal) Range: 0.0-1.2 Albumin, Serum 4.1 g/dL (Normal) Range: 3.5-5.5 Protein, Total, Serum 6.7 g/dL (Normal) Range: 6.0-8.5 :49 HEPATITIS PANEL (25446) Comments: PATIENT NOT FASTINGPERFORMED BY: [facility]6370 [facility] [id number] Hep C Virus Ab <0.1 {s/co_ratio} (Normal) Range: 0.0-0.9 Comments: Negative: < 0.8 Indeterminate: 0.8 - 0.9 Positive: > 0.9 . In order to reduce the incidence of a false positive result, the CDC recommends that all s/co ratios between 1.0 and 10.9 be confirmed by a more specific supplemental or PCR testing. [facility] offers HCV Ab w/Reflex to Verification test #[id number]. Hep B Core Ab, IgM Negative (Normal) HBsAg Screen Negative (Normal) Hep A Ab, IgM Negative (Normal) 41-Bdx-146429:49 ANTIMITOCHONDRIAL ANTIBODY Comments: PATIENT NOT FASTINGPERFORMED BY: [employer] [facility] [id number] (06312) Atypical pANCA <1:20 {titer} (Normal) Comments: The [...] Pathol 1999;111:507-513. Cytoplasmic (C-ANCA) <1:20 {titer} (Normal) 88-Cwy-816353:49 TRANSFERRIN (49678) Comments: PATIENT NOT FASTINGPERFORMED BY: [employer] [facility] [id number] Transferrin 259 mg/dL (Normal) Range: 200-370 33-Bmb-319615:49 GGT (GAMMA GLUTAMYLTRANSFERASE) Comments: PATIENT NOT FASTINGPERFORMED BY: [employer] Pqbxok8726 [facility] [id number] (55580) GGT 385 [iU]/L (Abnormal) Range: 0-60 38-Vhj-121466:49 FERRITIN (23218) Comments: PATIENT NOT FASTINGPERFORMED BY: [employer] Gwpwcp7851 [facility] [id number] Ferritin, Serum 447 ng/mL (Abnormal) Range: 15-150 15-Dal-058458:49 CMV IGM ANTBDY (71640) Comments: PATIENT NOT FASTINGPERFORMED BY: [employer] [facility] [id number] Cytomegalovirus (CMV) Ab, IgM <30.0 AU/mL (Normal) Range: 0.0-29.9 Comments: Negative <30.0 Equivocal 30.0 - 34.9 Positive >34.9 A positive result is generally indicative of acute infection, reactivation or persistent IgM production. 59-Alp-372825:49 CERULOPLASMIN (34278) Comments: PATIENT NOT FASTINGPERFORMED BY: [facility]WATCHSouthwest [facility] Rehabilitation Center6370 [facility] [id number] Ceruloplasmin 29.9 mg/dL (Normal) Range: 16.0-45.0 29-Xum-160592:49 ASM (ANTI SMOOTH MUSCLE Comments: PATIENT NOT FASTINGPERFORMED BY: KIWATCH[address] [id number] ANTIBODY) (51790) Actin (Smooth Muscle) Antibody 5 {Units} (Normal) Range: 0-19 Comments: Negative 0 - 19 Weak positive 20 - 30 Moderate to strong positive >30 . Actin Antibodies are found in 52-85% of patients with autoimmune hepatitis or chronic active hepatitis and in 22% of patients with primary biliary cirrhosis. 45-Ixd-722114:49 ANTI-LIVER/KIDNEY MICROSOMAL Comments: PATIENT NOT FASTINGPERFORMED BY: [facility]WATCHSouthwest [facility] Rehabilitation Center6370 [facility] [id number] ANTIBODY (36301) Thyroid Peroxidase (TPO) Ab 9 {IU/mL} (Normal) Range: 0-34 08-Diu-736118:49 LOLITA (ANTINUCLEAR ANTIBODY) Comments: PATIENT NOT FASTINGPERFORMED BY: [facility]ATCHSouth[facility] Center6370 [facility] [id number] (62363) LOLITA Direct Negative (Normal) 86-Bgs-711514:49 TSH (45686) Comments: PATIENT NOT FASTINGPERFORMED BY: [facility]ATCHSouth[facility] Center6370 [facility] [id number] TSH 1.520 {uIU/mL} (Normal) Range: 0.450-4.500 31-Aon-104932:49 T4, FREE (THYROXINE) (61362) Comments: PATIENT NOT FASTINGPERFORMED BY: [facility]ATCHSouth[facility] Center6370 [facility] [id number] T4,Free(Direct) 0.97 ng/dL (Normal) Range: 0.82-1.77 00-Ssp-665826:49 T3, FREE (TRIDOTHYRONINE) (34928) Comments: PATIENT NOT FASTINGPERFORMED BY: [facility] Vpyjmp2446 [address] RoadDublin [place] [id number] Triiodothyronine,Free,Serum 3.2 pg/mL (Normal) Range: 2.0-4.4 30-Mka-004942:23 Throat Culture (25021) Comments: PATIENT NOT FASTINGPERFORMED BY: CB [facility] Bbtakv2599 [address]aca RoadDublin [place] [id number] Information: SRC:THRT [id number] Result 1 RRF (Normal) Comments: Routine respiratory edith Upper Respiratory Culture Final report (Normal) 18-Ikg-34563:36 Rapid Strep Test, Office (78491) Rapid Strep Test, Office Negative (Normal) :38 CALCIFEDIOL (50666) Comments: PATIENT WAS FASTINGPERFORMED BY: [facility] Aughyw6795 [address] RoadDublin [place] [id number] Vitamin D, 25-Hydroxy 16.2 ng/mL (Abnormal) Range: 30.0-100.0 Comments: Vitamin D deficiency has been defined by the [place] ofMedicine and an Endocrine Society practice guideline as alevel of serum 25-OH vitamin D less than 20 ng/mL (1,2).The Endocrine Society went on to further define vitamin Dinsufficiency as a level between 21 and 29 ng/mL (2).1. IOM ([place] of Medicine). 2010. Dietary reference intakes for calcium and D. [place]: The National Academies Press.2. Myla MF, Javier NC, Katlyn-Cem MANN, et al. Evaluation, treatment, and prevention of vitamin D deficiency: an Endocrine Society clinical practice guideline. JCEM. 2010; 96(7):1911-30. :38 Lipid Panel (05253) Comments: PATIENT WAS FASTINGPERFORMED BY: [facility] Cblwla2807 [address] RoadDublin [place] [id number] Information: [id number] LDL/HDL Ratio 3.8 {ratio_units} (Abnormal) Range: 0.0-3.2 [...] FUNCTION PANEL Comments: PATIENT WAS FASTINGPERFORMED BY: Hotreader6370 [facility] [id number] (15524) ALT (SGPT) 446 [iU]/L (Abnormal) Range: 0-32 AST (SGOT) 119 [iU]/L (Abnormal) Range: 0-40 Alkaline Phosphatase, S 176 [iU]/L (Abnormal) Range: 39-117 Bilirubin, Direct 0.59 mg/dL (Abnormal) Range: 0.00-0.40 Bilirubin, Total 1.2 mg/dL (Normal) Range: 0.0-1.2 Albumin, Serum 4.2 g/dL (Normal) Range: 3.5-5.5 Protein, Total, Serum 7.0 g/dL (Normal) Range: 6.0-8.5 :24 Metabolic Panel, Comprehensive Comments: PATIENT NOT FASTINGPERFORMED BY: Proper[employer] LabCoBrandnew IOBfltib7132 [address] [facility] [id number] (30958) ALT (SGPT) 40 [iU]/L (Abnormal) Range: 0-32 [...] Glucose, Serum 108 mg/dL (Abnormal) Range: 65-99 22-Bbn-950286:24 CBC, Platelets & Auto Comments: PATIENT NOT FASTINGPERFORMED BY: LabCoEast Orange VA Medical CenterDwgoao8429 [facility] [id number] Information: [id number] Diff (74772) Immature Grans (Abs) 0.0 {x10E3/uL} (Normal) Range: [...] 3.77-5.28 WBC 10.1 {x10E3/uL} (Normal) Range: 3.4-10.8 34-Vhm-962954:09 URINE KENROY CULTURE-IDENTIFICATN Comments: PATIENT NOT FASTINGPERFORMED BY: BybanEast Orange VA Medical CenterUpbvby4690 [facility] [id number] Information: [id number] (87447) Result 1 MUG (Normal) Comments: Mixed urogenital flora1,000 Colonies/mL Urine Culture,Comprehensive Final report (Normal) 35-Zwt-220483:21 Urinalysis, Office (26107) UA - LEUKOCYTE ESTERASE Trace (Normal) UA - NITRITE Negative (Normal) URINE UROBILINGN JUAN TIMED Normal mg/dL (Normal) UA - PROTEIN Negative mg/dL (Normal) UA - PH 6 (Abnormal) UA - BLOOD Negative (Normal) UA - SPECIFIC GRAVITY 1.025 (Normal) UA - KETONES Negative mg/dL (Normal) UA - BILIRUBIN Negative (Normal) UA - GLUCOSE Negative (Normal) 50-Vui-358694:39 HEPATITIS B SURFACE ANTIBODY Comments: PATIENT NOT FASTINGPERFORMED BY: BybanEast Orange VA Medical CenterXejkqk7499 [facility] [id number] (10976) Hep B Surface Ab, Qual Non Reactive (Normal) Comments: Non Reactive: Inconsistent with immunity, less than 10 mIU/mL Reactive: Consistent with immunity, greater than 9.9 mIU/mL :39 HEPATITIS PANEL (13239) Comments: PATIENT NOT FASTINGPERFORMED BY: [facility]6370 [facility] [id number] Information: [id number] Hep C Virus Ab 0.2 {s/co_ratio} (Normal) Range: 0.0-0.9 Comments: Negative: < 0.8 Indeterminate 0.8 - 0.9 Positive: > 0.9 . In order to reduce the incidence of a false positive result, the CDC recommends that all s/co ratios between 1.0 and 10.9 be confirmed by a more specific supplemental or PCR testing. [facility] offers HCV Ab w/Reflex to Verification test #[id number]. Hep B Core Ab, IgM Negative (Normal) HBsAg Screen Negative (Normal) Hep A Ab, IgM Negative (Normal) :39 KNTFC-YYTMANAHFXM-JJHIK (16390) Comments: PATIENT NOT FASTINGPERFORMED BY: [facility] [id number] AFP, Serum, Tumor Marker 2.8 ng/mL (Normal) Range: 0.0-8.3 Comments: Ozzie ECLIA methodology 3-Wcy-700886:59 CBC, Platelets & Auto Diff Comments: PATIENT NOT FASTINGPERFORMED BY: [place] [id number] [facility] [id number] Information: [id number] (63848) Immature Grans (Abs) 0.0 {x10E3/uL} (Normal) Range: [...] 3.77-5.28 WBC 10.1 {x10E3/uL} (Normal) Range: 3.4-10.8 6-Mwz-017839:59 Metabolic Panel, Comprehensive Comments: PATIENT NOT FASTINGPERFORMED BY: [facility] Uvrggz5125 [facility] [id number] (41895) ALT (SGPT) 27 [iU]/L (Normal) Range: 0-32 [...] Glucose, Serum 125 mg/dL (Abnormal) Range: 65-99 9-Ncy-909151:08 Urinalysis, Office (96140) UA - LEUKOCYTE ESTERASE Moderate (Normal) UA - NITRITE Positive (Normal) URINE UROBILINGN JUAN TIMED Normal mg/dL (Normal) UA - PROTEIN Negative mg/dL (Normal) UA - PH 6 (Abnormal) UA - BLOOD non-hemolyzed trace (Normal) UA - SPECIFIC GRAVITY 1.020 (Normal) UA - KETONES Negative mg/dL (Normal) UA - BILIRUBIN Negative (Normal) UA - GLUCOSE Negative (Normal) 34-Njo-720987:41 Urinalysis, Office (28944) UA - BILIRUBIN Negative (Normal) UA - BLOOD Negative (Normal) UA - GLUCOSE Negative (Normal) UA - KETONES Negative mg/dL (Normal) UA - LEUKOCYTE ESTERASE Negative (Normal) UA - NITRITE Negative (Normal) UA - PH 7.0 (Normal) UA - PROTEIN Negative mg/dL (Normal) UA - SPECIFIC GRAVITY 1.020 (Normal) URINE UROBILINGN JUAN TIMED Normal mg/dL (Normal) 77-Nur-95274:34 KENROY CULTURE-OTHER (02829) Comments: PATIENT NOT FASTINGPERFORMED BY: [employer] [facility] [id number] Information: SRC: THROAT Result 1 RRF (Normal) Comments: Routine respiratory edith Upper Respiratory Culture Final report (Normal) 15-Mji-299160:20 MDQYE-FUQYDUKKRVJ-STWRT (91374) Comments: PATIENT NOT FASTINGPERFORMED BY: [employer] Mbtevk6394 [facility] [id number] AFP, Serum, Tumor Marker 2.6 ng/mL (Normal) Range: 0.0-8.3 Comments: Ozzie ECLIA methodology 10-Yrk-929914:20 PTT (Activated Partial Comments: PATIENT NOT FASTINGPERFORMED BY: [facility] [id number] Thromboplastin Time) (92034) aPTT 31 {sec} (Normal) Range: 24-33 Comments: This test has not been validated for monitoring unfractionated heparintherapy. aPTT-based therapeutic ranges for unfractionated heparintherapy have not been established. For general guidelines onHeparin monitoring, refer to the [facility] [employer] of Services. 40-Tip-940801:20 PT (Prothrobim Time) (82027) Comments: PATIENT NOT FASTINGPERFORMED BY: [facility] [id number] INR 1.0 (Normal) Range: 0.8-1.2 Comments: Reference interval is for non-anticoagulated patients. . Suggested INR therapeutic range for Vitamin K anta gonist therapy: Standard Dose (moderate intensity therapeutic range): 2.0 - 3.0 Higher intensity therapeutic range 2.5 - 3.5 Prothrombin Time 10.3 {sec} (Normal) Range: 9.1-12.0 :20 CBC WITH MANUAL DIFF Comments: PATIENT NOT FASTINGPERFORMED BY: [facility] [id number] Information: [id number] (77498) Immature Grans (Abs) 0.0 {x10E3/uL} (Normal) Range: [...] 3.77-5.28 WBC 12.1 {x10E3/uL} (Abnormal) Range: 4.0-10.5 99-Lmp-779475:49 GALLBLADDER Radiology Report See Note (Normal) Comments: [...] size of the right kidney. The right abgqrcggnxolza94.8 cm. Normal renal cortex. The right cortex measures 1.1 cm. Thereisno demonstrated renal mass or cyst. There is no right hydronephrosis. IMPRESSION:Solitary gallstone.Fatty infiltration of the liver. Signed:Jono Dumont M.D.October 11, 2012 at 2:01:18 PM [id number] Signed GP/GP If you are the referring physician and would like to consult with theradiologist who provided this interpretation, please contact Simone Espino at [phone]. If this radiologist is unavailable, youwi ll [...] 10/11/12 1406 Sign by: Jono Dumont MD 46-Oid-141522:14 C-REACTIVE PROTEIN (38954) Comments: PATIENT NOT FASTINGPERFORMED BY: Properati LabCoMaven NetworksMtvgqn1768 [facility] [id number] C-Reactive Protein, Quant 11.5 mg/L (Abnormal) Range: 0.0-4.9 02-Eaz-685188:14 SED RATE ERYTHROCYTE (25562) Comments: PATIENT NOT FASTINGPERFORMED BY: Properati [facility] Hmyxyo2365 [facility] [id number] Sedimentation Rate-Westergren 7 mm/h (Normal) Range: 0-32 96-Iby-107726:14 CBC WITH MANUAL DIFF Comments: PATIENT NOT FASTINGPERFORMED BY: [facility] [id number] Information: [id number] (83634) Immature Grans (Abs) 0.0 {x10E3/uL} (Normal) Range: [...] 3.77-5.28 WBC 13.1 {x10E3/uL} (Abnormal) Range: 4.0-10.5 20-Uif-403304:14 METABOLIC PANEL, COMPREHENSIVE Comments: PATIENT NOT FASTINGPERFORMED BY: [facility] [id number] (07239) ALT (SGPT) 25 [iU]/L (Normal) Range: 0-32 [...] mg/dL (Abnormal) Range: 65-99 21-Sep-20129:52 Rapid Flu (38426 x 2) Influenza A Ag pos a (Normal) 1-Nmh-600505:01 Influenza A&B Viral Comments: PATIENT NOT FASTINGPERFORMED BY: [employer] Mqyhnv5001 [facility] [id number] Information: SRC:NOS [id number] Culture (20898) Viral Culture,Rapid,Influenza PFLUA (Abnormal) Comments: PositiveInfluenza A detected.. 9-Tmk-958287:40 LIPID PANEL (75235) Comments: PATIENT WAS FASTINGPERFORMED BY: [employer] [facility] [id number] LDL/HDL Ratio 3.0 {ratio_units} (Normal) Range: 0.0-3.2 LDL Cholesterol Calc 103 mg/dL (Abnormal) Range: 0-99 VLDL Cholesterol [place] 33 mg/dL (Normal) Range: 5-40 Cholesterol, Total 170 mg/dL (Normal) Range: 100-199 HDL Cholesterol 34 mg/dL (Abnormal) Comments: According to ATP-III Guidelines, HDL-C >59 mg/dL is considered anegative risk factor for CHD. Triglycerides 163 mg/dL (Abnormal) Range: 0-149 9-Gel-081504:40 METABOLIC PANEL, Comments: PATIENT WAS FASTINGPERFORMED BY: [facility]CoEast [facility] Medical CenterEuqacr6016 [facility] [id number] Information: [id number] COMPREHENSIVE (52555) ALT (SGPT) 29 [iU]/L (Normal) Range: 0-32 [...] Glucose, Serum 87 mg/dL (Normal) Range: 65-99 57-Ttc-13156:35 KENROY CULTURE-OTHER (47056) Comments: PATIENT NOT FASTINGPERFORMED BY: [facility]CoEast [facility] Medical CenterDamcae9924 [facility] [id number] Information: SRC:ARTHURT [id number] Result 1 RRF (Normal) Comments: Routine respiratory edith Upper Respiratory Culture Final report (Normal) 51-Tnz-68103:21 Rapid Strep Test, Office (88179) Rapid Strep Test, Office Negative (Normal) 6-Dso-285585:10 CBC With Differential/Platelet Comments: PATIENT WAS FASTINGPERFORMED BY: LabCoSoc[facility] HospitalOqlzcl9734 [facility] [id number] Immature Grans (Abs) 0.0 {x10E3/uL} (Normal) Range: [...] Panel (14) Comments: PATIENT WAS FASTINGPERFORMED BY: [facility]ona70 [facility] [id number] ALT (SGPT) 22 [iU]/L (Normal) Range: 0-40 [...] % (Abnormal) Comments: PATIENT WAS FASTINGPERFORMED BY: Am[employer]ona70 [facility] [id number] :10 Range: 4.8-5.6 Comments: . Increased risk for diabetes: 5.7 - 6.4 Diabetes: >6.4 Glycemic control for adults with diabetes: <7.0 :10 Lipid Panel With LDL/HDL Comments: PATIENT WAS FASTINGPERFORMED BY: [facility] [id number] Ratio LDL/HDL Ratio 4.3 {ratio_units} (Abnormal) Range: 0.0-3.2 LDL Cholesterol Calc 154 mg/dL (Abnormal) Range: 0-99 VLDL Cholesterol [place] 23 mg/dL (Normal) Range: 5-40 HDL Cholesterol 36 mg/dL (Abnormal) Comments: According to ATP-III Guidelines, HDL-C >59 mg/dL is considered anegative risk factor for CHD. Triglycerides 115 mg/dL (Normal) Range: 0-149 Cholesterol, Total 213 mg/dL (Abnormal) Range: 100-199 9-Cyz-086140:10 Microalb/Creat Ratio, Randm Ur Comments: PATIENT WAS FASTINGPERFORMED BY: [facility] [id number] Microalb/Creat Ratio 6.3 {mg/g_creat} (Normal) Range: 0.0-30.0 Creatinine, Urine 30.4 mg/dL (Normal) Range: 15.0-278.0 Microalbumin, Urine 1.9 ug/mL (Normal) Range: 0.0-17.0 1-Zua-761328:10 Microscopic Examination Comments: PATIENT WAS FASTINGPERFORMED BY: [facility] [id number] Bacteria Few (Normal) Mucus Threads Present (Normal) Epithelial Cells (non 0-10 {/hpf} Range: 0 - 10 renal) (Normal) RBC None seen {/hpf} Range: 0 - 3 (Normal) WBC 0-5 {/hpf} (Normal) Range: 0 - 5 TSH 2.190 {uIU/mL} Comments: PATIENT WAS FASTINGPERFORMED BY: [facility] [id number] :10 (Normal) Range: 0.450-4.500 7-Yat-048537:10 Urinalysis, Complete Comments: PATIENT WAS FASTINGPERFORMED BY: [facility]South[facility] Center6370 [facility] [id number] Microscopic Examination See below: (Normal) Microscopic Examination MICRON (Normal) Comments: Microscopic follows if indicated. Nitrite, Urine Negative (Normal) Urobilinogen,Semi-Qn 0.2 mg/dL (Normal) Range: 0.0-1.9 Bilirubin Negative (Normal) Occult Blood Negative (Normal) Ketones Negative (Normal) Glucose Negative (Normal) Protein Negative (Normal) WBC Esterase Negative (Normal) Appearance Clear (Normal) Urine-Color Yellow (Normal) pH 7.5 (Normal) Range: 5.0-7.5 Specific [place] 1.008 (Normal) Range: 1.005-1.030 3-Xwv-332042:53 CHEST, PA AND LATERAL Radiology Report See [...] IMPRESSION:Normal x-ray examination of the chest. Signed:Jono hsah M.D.May 28, 2012 at 3:41:15 PM [id number] Signed GP/GP If you are the referring physician and would like to consult with theradiologist who provided this interpretation, please contact Simone Espino at [phone]. If this radiologist is unavailable, youwill be directed to another radiologist to assist. If you are a patient with a question regarding this report, pl easecontactyour referring physician directly. Professional Interpretation Provided By: [employer], Phone , These documents contain legally protected and confidential healt hinformation intended only for the use of the individual or entity namedabove. If you are not the intended recipient, you are hereby notifiedthatany disclosure, copying, distribution, or other use of [facility] documents isstrictly prohibited. If you have received this information in error,pleasenotify the sender immediately and arrange for the return or destructionofthese documents. Dictated on 2 1103 by Julia DÍAZ,Shylaranscribed on 05/28/12 1544 by ITS IMPORTSign by Julia DÍAZ,Jono on 05/28/12 1545 Sign by: Jono Dumont [...] Marquez M.D.May 26, 2012 at 9:02:07 PM EDT([phone] Signed AM/AM If you are the referring physician and would like to consult with theradiologist who provided this i nterpretation, please contact Joanne Marquez M.D. at . If this radiologist is unavailable, you will bedirected to another radiologist to assist. If you are a patient with a question regarding this report, pleasecontactyour referring physician directly. Professional Interpretation Provided By: [employer], Phone , These documents contain legally protected [...] partial nephrectomy H/O partial nephrectomy : Reviewed Aoc Director Intelligence Officer Letter Indication: H/O partial nephrectomy Abdominal pain, [...] acute, generalized Planned Observations URINE KENROY CULTURE-IDENTIFICATN (26021)Indication: Dysuria On: 28-Ogh-058038:30 Request Serum Free Light Chains (26328)Indication: Abnormal blood chemistry On: 79-Ypx-788168:54 Request MICROALBUMIN: CREATININE RATIO (36997) AND (90744)Indication: Hypertension, benign On: :06 Request IMMUNOGLOBULIN E (IgE) (03090)Indication: Acute bronchitis On: :06 Request LIPID PANEL (15355)Indication: Mixed hyperlipidemia On: :40 Request AQPUS-PZTKVCQULOQ-QKEJB (67145)Indication: Fatty liver On: :40 Request HGB A1C (97683)Indication: Impaired Fasting Glucose On: :40 Request METABOLIC PANEL, COMPREHENSIVE (92184)Indication: Impaired Fasting Glucose On: :40 Request CBC (AUTO) (75055)Indication: Impaired Fasting Glucose On: :49 Request Vitamin D Hydroxy (67524)Indication: Vitamin D deficiency On: :48 Request METABOLIC PANEL, COMPREHENSIVE (75645)Indication: Mixed hyperlipidemia On: :48 Request LIPOPROTEIN, BLD, BY NMR (23723)Indication: Mixed hyperlipidemia On: :48 Request XMXFF-SIBURXSUAEK-IAYBK (41454)Indication: Acute foot pain, right On: 83-Nvs-765368:38 Request Vitamin D Hydroxy (65263)Indication: Vitamin D deficiency On: :50 Request JHTYD-FLTVGVZVGPH-YZESL (87595)Indication: Fatty liver On: :50 Request METABOLIC PANEL, COMPREHENSIVE (99998)Indication: Impaired Fasting Glucose On: :49 Request MICROALBUMIN: CREATININE RATIO (42029) AND (69834)Indication: Impaired Fasting Glucose On: :49 Request HGB A1C (71593)Indication: Impaired Fasting Glucose On: 23-Nov-20159:49 Request LIPID PANEL (73315)Indication: Mixed hyperlipidemia On: :49 Request LIPID PANEL (32949)Indication: Mixed hyperlipidemia On: 57-Uor-978037:00 Request MICROALBUMIN: CREATININE RATIO (19830) AND (29287)Indication: Impaired Fasting Glucose On: 95-Xka-624163:00 Request Hemoglobin Glyclated (HGB A1C) (46080)Indication: Impaired Fasting Glucose On: : Request Vitamin D Hydroxy (62174)Indication: Vitamin D deficiency On: : Request Vitamin D Hydroxy (34957)Indication: Vitamin D deficiency On: : Request CBC with auto diff (23845)Indication: Hypertension, benign On: :11 Request METABOLIC PANEL, COMPREHENSIVE (19468)Indication: Impaired Fasting Glucose On: :10 Request MICROALBUMIN: CREATININE RATIO (31199) AND (12898)Indication: Impaired Fasting Glucose On: 81-Yxi-039246:10 Request Hemoglobin Glyclated (HGB A1C) (47493)Indication: Impaired Fasting Glucose On: 21-Jem-057984:10 Request LIPID PANEL (07716)Indication: Mixed hyperlipidemia On: 82-Gra-633823:10 Request MSZOT-XPMPLFSQTHQ-QARCS (11146)Indication: Fatty liver On: 72-Oig-239578:10 Request Vitamin D Hydroxy (62613)Indication: Vitamin D deficiency On: 1-Eep-548691:15 Request Hemoglobin Glyclated (HGB A1C) (89087)Indication: Impaired Fasting Glucose On: 7-Kih-790783:14 Request METABOLIC PANEL, COMPREHENSIVE (18005)Indication: Impaired Fasting Glucose On: 0-Rfr-090635:14 Request LIPID PANEL (86901)Indication: Mixed hyperlipidemia On: 5-Kwn-328462:14 Request Lipid Panel (48438)Indication: Elevated liver enzymes On: 82-Ifr-089279:47 Request HEPATIC FUNCTION PANEL (12642)Indication: Mixed hyperlipidemia On: 26-Zug-295481:08 Request CALCIFEDIOL (50693)Indication: Unspecified Diagnosis On: 14-Nga-67786:53 Request Lipid Panel (39225)Indication: Unspecified Diagnosis On: 95-Lml-16757:53 Request Lipid Panel (96170)Indication: SCREENING FOR HYPERLIPIDEMIA (Renamed from Encounter for screening for lipoid disorders) On: 26-Gmk-569552:34 Request Comments: To be drawn Fasting Mar 2014 METABOLIC PANEL, COMPREHENSIVE (08511)Indication: Left knee pain On: :39 Request CCP ANTIBODY (42498)Indication: Left knee pain On: :39 Request SED RATE ERYTHROCYTE (00828)Indication: Left knee pain On: :39 Request C-REACTIVE PROTEIN (15882)Indication: Left knee pain On: :39 Request TSH (81082)Indication: Left knee pain On: :39 Request RHEUMATOID FACTOR-QUANT (82689)Indication: Left knee pain On: :39 Request Rapid Strep Test, Office (55279)Indication: ACUTE PHARYNGITIS (462.) On: :20 Request C-REACT PROT HIGH SENS(hsCRP) (83769)Indication: Hypertension, benign On: 89-Hqq-069353:16 Request Sed Rate Erythrocyte (92143)Indication: Hypertension, benign On: 30-Zoh-677036:16 Request CBC with manual diff (82302)Indication: Hypertension, benign On: 67-Gcz-144018:16 Request TSH (69794)Indication: Chest pain On: :33 Request CBC WITH MANUAL DIFF (66334)Indication: Chest pain On: :33 Request MICROALBUMIN: CREATININE RATIO (28994) AND (63581)Indication: Hypertension, benign On: :47 Request URINALYSIS, W/ MICRO (16665)Indication: Hypertension, benign On: 73-Kwh-761963:47 Request Hemoglobin Glyclated (HGB A1C) (49257)Indication: Obesity, unspecified On: 32-Rmj-739430:47 Request LIPID PANEL (65090)Indication: Mixed hyperlipidemia On: 66-Wrg-855992:46 Request METABOLIC PANEL, COMPREHENSIVE (47895)Indication: Hypertension, benign On: 50-Est-832468:46 Request Planned Encounters Medical; [facility] (Doctor) - On: 20-Aug-2018 13:30 [facility] Fast DO, Marcelle A Fast DO, Marcelle A Planned Procedures ELECTROCARDIOGRAM, COMPLETE (ECG) On: 26-Jul-2018 Intent (29633)By: Catalina Corona Comments: Normal Sinus Rhythm-HR 67 ORTHOSTATIC BLOOD PRESSURE On: 26-Jul-2018 Intent ASSESSMENT (89773)By: Catalina Corona Comments: Layin/68 HR 60Sittin/70 IE31Grmnpqgp: 84/66 HR 90 Flu Vaccine (Quadrivalent) 73866Ym: On: 30-Apr-2018 Intent Fast DO, Marcelle A Fast DO, Marcelle A Comments: Lot #[id number]/30/19Site-L dltd, IMDose prefilled syringegiven by: Marta AVINA reviewed and ABN signed MAGNETIC RESONANCE IMAGING OF RIGHT On: 07-Mar-2018 Intent CALF WITHOUT THEN WITH CONTRAST (57362)By: Sara Henry Doppler Ultrasound OtherBy: Fast DO, [...] A ELECTROCARDIOGRAM, COMPLETE (ECG) On: 20-Jun-2017 Intent (44780)By: Fast DO, Marcelle A Fast DO, Marcelle A SCREENING DIGITAL TOMOSYNTHESIS OF On: 20-Jun-2017 Intent BREAST (84446)By: Fast DO, Marcelle A Fast DO, Marcelle A Flu Vaccine (Quadrivalent) 94189Ug: On: 20-Jun-2017 Intent Fast DO, Marcelle A [...] Comments: Lot:[id number]:01/05Dose:1mlRoute:IMSite:l armGiven By:BRIAN signed Aerosol Treatment (78620)By: Fast On: 23-Sep-2016 Intent DO, Marcelle A Fast DO, Marcelle A Comments: with albuterol Ultrasound - ThyroidBy: Fast DO, On: 29-Aug-2016 Intent Marcelle A Fast DO, Marcelle A Radiology - Shoulder - LeftBy: Fast On: 16-May-2016 Intent DO, Marcelle A Fast DO, Marcelle A Comments: with ac joint please DEXA SCAN AXIAL SKELETON (90645)By: On: 16-May-2016 Intent Fast DO, Marcelle A Fast DO, Marcelle A MAMMOGRAM, SCREENING, BOTH BREAST On: 16-May-2016 Intent (45183)By: Fast DO, Marcelle A Fast DO, Marcelle A ELECTROCARDIOGRAM, COMPLETE (ECG) On: 16-May-2016 Intent (45428)By: Fast DO, Marcelle A Fast DO, Comments: ekg showed normal sinus rhythym, normal axis, no acute st/t wave changes slight prolong qt Marcelle A Flu Vaccine (Quadrivalent) 61879Qh: On: 16-May-2016 Intent Fast DO, Marcelle A Fast DO, Marcelle A Comments: Lot #:[id number] date:02/17/17mount given:0.5mlRoute: IMSite given: left deltoidGiven by: [...] MAMMOGRAM, SCREENING, BOTH BREAST On: 15-May-2015 Intent (73282)By: Marcelle Daley DO DO, Marcelle A Flu Vaccine (Quadrivalent) 28093Hb: On: 15-May-2015 Intent Tl Daley DOa Barber Daley DO, Marcelle A Comments: Lot:[id number]:01/03Dose:0.5mLRoute:IMSite:L DltdGiven By:AZEB Kennedy signed ADMINISTRATION OF INFLUENZA VIRUS On: 15-May-2015 Intent VACCINE (G0008)By: Marcelle Daley DO, DO Marcelle A EKG (84181)By: Marcelle Daley DO On: 06-Feb-2015 Intent Andrew MATHIS Marcelle A Comments: ekg showed normal sinus rhythym, normal axis, no acute st/t wave changes lvh no change Aerosol Treatment (71181)By: Christy On: 15-Jan-2015 Intent Jing MATHIS Comments: more a/e - still exp noise on left side only Radiology - Chest- PA and LatBy: On: 15-Jan-2015 Intent Jing Harrison DO Flu Vaccine (Quadrivalent) 98557Mo: On: 20-Jun-2014 Intent Vivian Washington CNP ADMINISTRATION [...] ADMNIN, 1 VAC, SNGL/COMBO On: 03-Jul-2013 Intent (24125)By: Maty Taveras LPN Comments: Lot #[id number]-L dltd, IMDose prefilled syringegiven by:SIMONE Luque and NATE signed FLU VAC, SPLIT, >3 YEARS, INTRAMUSC On: 03-Jul-2013 Intent (90126)By: Maty Taveras LPN Toradol Injection, 30 mg (J1885)By: On: 31-May-2013 Intent Felix BACH Vivian Mosqueda Radiology - Left KneeBy: Felix BACH, On: 31-May-2013 Intent Vivian Mosqueda Eprescribed prescriptions (G8553)By: On: 06-Mar-2013 Intent Sara Henry EKG (78360)By: Fast DO, Marcelle A On: 15-Oct-2012 Intent Fast DO, Marcelle A Comments: ekg showed normal sinus rhythym, normal axis, no acute st/t wave changes nsivcd no change Spirometry (16040)By: Fast DO, On: 15-Oct-2012 Intent Marcelle A Fast DO, Marcelle A Comments: good effort and curve normal Radiology - Chest- PA and LatBy: On: 15-Oct-2012 Intent Fast DO, Marcelle A Fast DO, Marcelle A Ultrasound - GallbladderBy: Fast DO, On: 09-Oct-2012 Intent Marcelle A Fast DO, Marcelle A Eprescribed prescriptions (G8553)By: On: 09-Oct-2012 Intent Melania Salcedo Aerosol Treatment (86952)By: Ciesa On: 21-Sep-2012 Intent Vivian BACH Eprescribed prescriptions (G8553)By: On: 20-Jul-2012 Intent Melania Salcedo SPECIMEN HNDLNG/TRNSPRT, OFFC > LAB On: 11-Jul-2012 Intent (98134)By: George Oscar LPN FLU VAC, SPLIT, >3 YEARS, INTRAMUSC On: 18-May-2012 Intent (16972)By: Melania Salcedo Comments: Lot:[id number]:prefilledRoute:IMSite:L DltdGiven By:BRIAN signed CT - Abdomen & PelvisBy: Fast DO, On: 18-May-2012 Intent Marcelle A Fast DO, Marcelle A Echo CompleteBy: Fast DO, Marcelle A On: 18-May-2012 Intent Fast DO, Marcelle A Spirometry (33775)By: Fast DO, On: 18-May-2012 Intent Marcelle A Fast DO, Marcelle A Comments: good effort and curve normal Eprescribed prescriptions (G8553)By: On: 18-May-2012 Intent Fast DO, Marcelle A Fast DO, Marcelle A EKG (36207)By: Fast DO, Marcelle A On: 18-May-2012 Intent Fast DO, Marcelle A Comments: sinus with deep r waves left axis no acute st t cahnges Radiology - Chest- PA and LatBy: On: 18-May-2012 Intent Fast DO, Marcelle A Fast DO, Marcelle A TD Injection , IM (17170)By: On: 18-May-2012 Intent Melania Salcedo Comments: received in 2002 IMMUNIZ ADMNIN, 1 VAC, SNGL/COMBO On: 18-May-2012 Intent (20058)By: Melania Salcedo Planned Medications INJECTION, KETOROLAC TROMETHAMINE, [...] Instructions Indication: Hypertension, benign Encounters Review On: 08-Aug-2018 11:55 Encounter Reason: Flank [...] it passed. Dizziness with movement. 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 Was keeping track [facility] but the c End: 20-Sep-2015 17:39 [...] do from here. Has seen Oncologist in [place], Dr. Jan Healy which he has referred her to [facility] which she is waiting to get in. margins were not clear and was renal cell carcino theresa- darrick wanted to do watchful waiting- but went for second opinion in [place]-- got referred to Dr Iglesia Gibbons- she [...] for new patient [facility]: [facility] last at Dr [...]
--- OUTSIDE RECORDS SUMMARY | 2018-11-11 07:53 | XMS RPT_ITS ---
:1965 Author Organization OHIP Support Name Relationship Address Phone MIKE VALDOVINOS Unavailable [address] + [place] [address] WHITE, CHAYO Unavailable [address] + [place] [address] WOOCISCH Unavailable [address] + [place] [address] WHITE, MIKE Unavailable [address] + [place] [address] WHITE, CHAYO Unavailable [address] + [place] [address] WOOCISCH Unavailable [address] + [place] [address] WHITE, MIKE Unavailable [address] + [place] [address] WHITE, CAHYO Unavailable [address] + [place] [address] WOOCISCH Unavailable [address] + [place] [address] WHITE, MIKE Unavailable [address] + [place] [address] WHITE, CHAYO Unavailable [address] + [place] [address] WOOCISCH Unavailable [address] + [place] [address] WHITE, MIKE Unavailable [address] + [place] [address] WHITE, CHAYO Unavailable [address] + [place] [address] WOOCISCH Unavailable [address] + [place] [address] WHITE, MIKE Unavailable [address] + [place] [address] WHITE, CHAYO Unavailable [address] + [place] [address] WOOCISCH Unavailable [address] + [place] [address] WHITE, MIKE Unavailable [address] + [place] [address] WHITE, CHAYO Unavailable [address] + [place] [address] WOOCISCH Unavailable [address] + [place] [address] WHITE, MIKE Unavailable [address] + [place] [address] WHITE, CHAYO Unavailable [address] + [place] [address] WOOCISCH Unavailable [address] + [place] [address] WHITE, MIKE Unavailable [address] + [place] [address] WHITE, CHAYO Unavailable [address] + [place] [address] WOOCISCH Unavailable [address] + [place] [address] WHITE, MIKE Unavailable [address] + [place] [address] WHITE, CHAYO Unavailable [address] + [place] [address] WOOCISCH Unavailable [address] + [place] [address] Care Team Providers Name Role Phone Fast DO, Marcelle A Attending Unavailable Fast DO, Marcelle A Referring Unavailable Fast DO, Marcelle A Consulting Unavailable Fast, Marcelle Attending Unavailable Fast, Marcelle Referring Unavailable Fast, Marcelle Primary Care Unavailable Fast, Marcelle Attending Unavailable Fast, Marcelle Referring Unavailable Fast, Marcelle Primary Care Unavailable Rafal Damon Attending Unavailable Rafal Damon Referring Unavailable Fast, Marcelle Primary Care Unavailable Donavan Ramos Attending Unavailable Fast, Marcelle Referring Unavailable Fast, Marcelle Primary Care Unavailable Fast, Marcelle Consulting Unavailable DOCTOR, OUT OF TOWN Attending Unavailable Fast, Marcelle Primary Care Unavailable Fast, Marcelle Attending Unavailable Fast, Marcelle Referring Unavailable Fast, Marcelle Primary Care Unavailable Fast, Marcelle Attending Unavailable Fast, Marcelle Referring Unavailable Fast, Marcelle Primary Care Unavailable Fast, Marcelle Attending Unavailable Fast, Marcelle Referring Unavailable Fast, Marcelle Primary Care Unavailable Fast, Marcelle Attending Unavailable Fast, Marcelle Referring Unavailable Fast, Marcelle Primary Care Unavailable Wunning, Blayne Attending Unavailable Wunning, Blayne Referring Unavailable Fast, Marcelle Primary Care Unavailable PROBLEMS PROBLEMS DATE TYPE CONDITION / CODE ATTENDING STATUS SOURCE 08/29/2018 Unknown M54.41 - Lumbago Bavis, Rafal Active [place] with sciatica, [facility] right side / Hospital M54.41(ICD-10) Repository PROCEDURES PROCEDURES No Procedure Records FoundRESULTS RESULTS LIMITED CHEST CT Observed: 09/06/2018 Status: F Source: PROTEM W/CCTA 1:26 PM [facility] REPOSITORY [facility] Imaging Services [address] [place] [address] w/CCTA MR#: [id number] Acct: [id number] Name: AMY VALDOVINOS Rep #: [id number] : 1965 F 53 From: Jono Dumont MD PCP: Marcelle Morales DO Status: REG CLI Study: Limited Chest CT w/CCTA Date of Exam: 09/06/18 Exam# [id number] Ordering Dr: Marcelle Morales DO STUDY: CT CHEST WITHOUT CONTRAST REASON FOR EXAM: Female, 53 years old. Hyperlipidemia. Calcium scoring examination. This is a radiological over read examination. RADIATION DOSAGE (If Supplied By Facility): CTDIvol = ( 12.19 ) mGy, DLP = ( 268.17 ) mGycm TECHNIQUE: Transaxial imaging was performed without the administration of intravenous contrast material. Individualized dose optimization techniques were used for this CT. COMPARISON: Comparison is made with prior examination dated November 10, 2015. FINDINGS: Small bilateral axillary lymph nodes. Minimal increased markings at the lung bases suggestive of dependent basilar atelectasis. There is a 3.2 mm noncalcified nodule in the superior medial segment of the right lower lobe as seen on axial image #15. This is unchanged from prior examination. There is no demonstrated pleural abnormality. Normal heart and pericardium. Normal mediastinum. Normal hilar regions. Normal unenhanced pulmonary arteries. Normal aorta arch and descending thoracic aorta. There are degenerative changes of the thoracic spine. There is no demonstrated abnormality of the visualized upper abdomen. CT/Limited Chest CT w/CCTA IMPRESSION: No acute abnormality is seen. Electronically Signed: Jono Dumont MD at 13:06 EST Tel [phone], Service support , CC: Marcelle Morales DO Record Center Specialist: Signed L/S SPINE COMP/W Observed: 08/29/2018 Status: F Source: PROTEM BENDING VIEWS 3:02 PM [facility] REPOSITORY [facility] Imaging Services [address] [place] [address] L/S Spine Comp/w Bending Views MR#: [id number] Acct: [id number] Name: AMY VALDOVINOS Rep #: [id number] : 1965 F 53 From: Aleksandr Delgadillo PCP: Marcelle Morales DO Status: REG CLI Study: L/S Spine Comp/w Bending Views Date of Exam: 08/29/18 Exam# [id number] Ordering Dr: Rafal Damon MD STUDY: X-RAY - LUMBAR SPINE REASON FOR EXAM: Female, 53 years old. lumbago with sciatica, right side, also pain in right foot TECHNIQUE: 7 view(s) of the lumbar spine were obtained. COMPARISON: None FINDINGS: Normal lumbar lordosis. There is no demonstrated spondylolisthesis There is multilevel endplate spondylosis of the lumbar vertebrae. There is multi-level degenerative disc disease with multi-level disc space narrowing. The soft tissue structures are unremarkable. RAD/L/S Spine Comp/w Bending Views IMPRESSION: Mild degenerative changes of the spine. Electronically Signed: Aleksandr Delgadillo MD at 8:25 EST Tel , Service support , CC: Marcelle Morales DO; Rafal Damon MD Record Center Specialist: Signed ABDOMEN/PELVIS WITHOUT Observed: 08/10/2018 Status: F Source: PROTEM CONT 4:51 PM [facility] REPOSITORY [facility] Imaging Services [address] [place] [address] Abdomen/Pelvis without Cont MR#: [id number] Acct: [id number] Name: AMY VALDOVINOS Rep #: [id number] : 1965 F 53 From: Frank Petty MD PCP: Marcelle Morales DO Status: REG CLI Study: Abdomen/Pelvis without Cont Date of Exam: 08/10/18 Exam# [id number] Ordering Dr: Marcelle Morales DO STUDY: CT ABDOMEN AND PELVIS WITHOUT CONTRAST REASON FOR EXAM: Female, 53 years old. Flank pain, left partial nephrectomy, hysterectomy, oophorectomy, cholecystectomy RADIATION DOSAGE (If Supplied By Facility): CTDIvol = ( 12.08 ) mGy, DLP = ( 615.71 ) mGycm TECHNIQUE: Transaxial images were obtained from the dome of the diaphragm to the symphysis pubis without oral contrast, and without intravenous contrast. Sagittal and coronal images were reconstructed. Individualized dose optimization techniques were used for this CT. COMPARISON: CT abdomen and pelvis 02/19/2018 FINDINGS: Body wall soft tissues: No acute process. Osseous structures: No acute process. Inferior chest: No acute process. Hepatobiliary: Normal. Pancreas: No acute process. Spleen: Normal. Adrenal glands: Normal. Urogenital: There is a tiny [...] ureter measuring approximately 3 mm. Series 2 image 126. Right renal collecting system and ureter normal. Uterus and ovaries absent. No adnexal mass or cyst or cul-de-sac free fluid. Pelvic floor and sidewalls and retroperitoneum: No mass or adenopathy. Vasculature: No acute process. Stomach: No acute process. Small bowel and mesentery: No acute process. Large bowel: Normal appendix. Unremarkable large bowel and rectum. Free fluid or free air: None. CT/Abdomen/Pelvis without Cont IMPRESSION: Acute passage of 3 mm calculus, within the distal 3rd of the left ureter, minimal hydronephrosis. No retained calculi in the kidneys. Electronically Signed: Frank Petty MD at 17:39 EST Tel , Service support , CC: Marcelle Morales DO Record Center Specialist: Signed NCS AND/OR EMG Observed: 03/28/2018 Status: F Source: PROTEM PATIENT 12:44 PM [facility] REPOSITORY [facility] Pulmonary Services/Neurology [address] [facility] [place] [address] MR#: [id number] Acct: [id number] Name: AMY VALDOVINOS Rep #: [id number] : 1965 52 From: Adebayo Canchola MD Referring Dr: Blayne Welsh DPM Status: REG CLI Ordering Dr: Date: Location: [facility] Sex: F C NCS and/or EMG Patient Report Ordering Doctor: Blayne Welsh DATE OF SERVICE: 03/28/18 Is a bilateral lower extremity nerve conduction study and EMG of the right lower extremity performed on this 52-year-old female with paresthesias in her feet bilaterally worse on the right side. She says she is prediabetic with a hemoglobin A1c of 5.1. Bilateral lower extremity sensory and motor nerve conduction studies are performed. The sural sensory responses are intact. Bilateral common peroneal motor distal latencies amplitudes and [...] demonstrated normal insertional activity with absence of pathologic spontaneous activity. Motor unit potential recruitment pattern and amplitude was normal in all muscles tested. Impression: This is a normal EMG and nerve conduction study of the lower extremities however there is mildly reduced H reflex amplitudes in conjunction with the patient's symptoms this likely represents small fiber neuropathy. 03/28/18 1244 <Electronically signed by Adebayo Canchola MD> Date Adebayo Canchola MD CC: Marcelle Morales DO; Blayne Welsh DPM; Adebayo Canchola MD Date Dictated: 03/28/18 1021 Date Transcribed: 03/28/18 1021 Record Center Specialist: NF Signed LOWER EXT NO JOINT Observed: 03/10/2018 Status: F Source: PROTEM W/WO CONT 8:12 AM [facility] REPOSITORY [facility] Imaging Services [address] [place] [address] Lower Ext No Joint W/WO Cont MR#: [id number] Acct: [id number] Name: AMY VALDOVINOS Rep #: [id number] : 1965 F 52 From: Ge Moffett MD PCP: Marcelle Morales DO Status: REG CLI Study: Lower Ext No Joint W/WO Cont Date of Exam: 03/10/18 Exam# [id number] Ordering Dr: Marcelle Morales DO STUDY: MRI LOWER EXTREMITY RIGHT TIBIA/FIBULA WITH AND WITHOUT CONTRAST REASON FOR EXAM: Female, 52 years old. Mass TECHNIQUE: Standardized fat and water weighted pulse sequences were obtained in all 3 orthogonal planes, post contrast administration. 10 ml of Gadavist contrast material was administered intravenously for the contrast portion of the examination. COMPARISON: None. FINDINGS: Normal tibia and fibula, without a periosteal, cortical or cancellous marrow abnormality. Normal anterior, lateral, and posterior calf compartments, with normal muscles, crural fascia and intermuscular septa. Normal subcutis adipose space, without subcutis adipose space edema. There is no solid, cystic or lipomatous mass lesion of the subcutis adipose space. There is no abnormal contrast enhancement. MRI/Lower Ext No Joint W/WO Cont IMPRESSION: Intact right calf No soft tissue mass. No abnormal enhancement Electronically Signed: Ge Moffett MD at 9:35 EDT Tel , Service support , CC: Marcelle Morales DO Record Center Specialist: Signed VENOUS DUPLEX LOWER Observed: 03/06/2018 Status: F Source: PROTEM EXTREMITY 4:23 PM [facility] REPOSITORY [facility] Cardiovascular Services [address] [place] [address] Venous Duplex US, Unilateral 03/06/18 1435 MR#: [id number] Acct: [id number] Name: AMY VALDOVINOS Rep #: [id number] : 1965 52 From: Jared Hines MD Attending Dr: Marcelle Morales DO Status: REG CLI Ordering Dr: Marcelle Morales DO Date: 03/06/18 Location: [facility] Sex: F C Admitted: Reason For Study: LEG SWELLING RIGHT LEFT GSV is normal. CFV is compressible, spontaneous, phasic, CFV is compressible, spontaneous, phasic, competent, and demonstrates normal competent and demonstrates normal augmentation. augmentation. FV is compressible, spontaneous, phasic, competent and demonstrates normal augmentation. POP V is compressible, spontaneous, phasic, competent and demonstrates normal augmentation. T/P Trunk is compressible. PTV is compressible. RT PerV is compressible. Procedure Exam performed in department. A preliminary report was called and/or faxed to Dr. Morales. Interpretation Summary Deep veins of the right lower extremity are patent and compressible segmentally. There is no evidence of right lower extremity deep vein thrombosis. Valvular competence appears intact within the proximal deep venous system on the right . The right greater saphenous vein appears patent and compressible segmentally. Ordering Physician: Marcelle Morales Referring Physician: Marcelle Morales Performed By: Padmini Jasso RVT 03/06/18 1623 Date Jared Hines MD CC: Marcelle Morales DO Date Dictated: 03/06/18 1435 Date Transcribed: 03/06/18 1623 Record Center Specialist: Signed ABDOMEN/PELVIS WITH Observed: 02/19/2018 Status: F Source: PROTEM CONTRAST 6:56 AM [facility] REPOSITORY [facility] Imaging Services [address] [place] [address] Abdomen/Pelvis WITH Contrast MR#: [id number] Acct: [id number] Name: AMY VALDOVINOS Rep #: [id number] : 1965 F 52 From: Jono Dumont MD PCP: Marcelle Morales DO Status: REG CLI Study: Abdomen/Pelvis WITH Contrast Date of Exam: 02/19/18 Exam# [id number] Ordering Dr: Marcelle Morales DO STUDY: CT ABDOMEN AND PELVIS WITH CONTRAST REASON FOR EXAM: Female, 52 years old. Few month history of left lower quadrant pain with diarrhea and constipation. RADIATION DOSAGE (If Supplied By Facility): CTDIvol = ( 20.04 ) mGy, DLP = ( 1315.22 ) mGycm TECHNIQUE: Transaxial images were obtained from the dome of the diaphragm to the symphysis pubis with oral contrast. 100ml ml of Isovue 300 contrast was administered. Sagittal and coronal images were reconstructed. Individualized dose optimization techniques were used for this CT. COMPARISON: Comparison is made with prior study dated November 30, 2013. FINDINGS: The visualized lung bases are unremarkable. The visualized portions of the heart are within normal limits. There is decreased attenuation of the liver consistent with steatosis. The patient is status post cholecystectomy. Normal spleen. Normal pancreas. Normal bilateral adrenal glands. Normal right kidney. Stable deformity of the posterior medial aspect of the upper pole of the left kidney in keeping with history of prior localized resection. Normal visualized stomach. Normal small intestine. There are multiple colonic diverticula consistent with diverticulosis. The appendix is visualized and appears normal. Normal abdominal aorta. Normal inferior vena cava. There is borderline retroperitoneal lymphadenopathy with enlarged nodes no greater than 10mm in the short axis diameter. Normal urinary bladder. There is absence of the uterus consistent with a prior hysterectomy. Normal abdominal wall. Normal osseous structures. CT/Abdomen/Pelvis WITH Contrast IMPRESSION: Fatty infiltration of the liver. No acute abnormality is seen. Electronically Signed: Jono Dumont MD at 10:35 EDT Tel [phone], Service support , CC: Marcelle Morales DO Record Center Specialist: Signed THYROID Observed: 10/17/2017 Status: F Source: PROTEM 10:18 AM [facility] REPOSITORY [facility] Imaging Services [address] [place], [place] [address] Thyroid MR#: [id number] Acct: [id number] Name: BONIFACIOAMY LINN Rep #: [id number] : 1965 F 52 From: Shine Sawyer MD PCP: Marcelle Morales DO Status: REG CLI Study: Thyroid Date of Exam: 10/17/17 Exam# [id number] Ordering Dr: Marcelle Morales DO STUDY: THYROID ULTRASOUND REASON FOR EXAM: Female, 52 years old. Follow-up nodules. TECHNIQUE: Ultrasound [...] regional lymph nodes are normal. US/Thyroid IMPRESSION: Stable probable multinodular goiter. Electronically Signed: Shine Sawyer MD at 17:01 EST , Service support , CC: Marcelle Morales DO Record Center Specialist: Signed ALLERGIES ALLERGIES No Allergies Records FoundENCOUNTERS ENCOUNTERS ADMIT/DISCHARGE ACCOUNT ADMITTING ENCOUNTER LOCATION SOURCE NUMBER [facility] 09/06/2018 [id number] Ambulatory BMSBuilding:B [place] 6 MSDiandraCF.[facility] Repository 09/06/2018 [id number] Ambulatory [place] 6 [facility] ing:CT Repository 08/29/2018 [id number] Ambulatory [place] 9 [facility] ing:RAD Repository 08/20/2018 [id number] Ambulatory Building:[facility] Practices Repository 08/10/2018 [id number] Ambulatory [place] 6 [facility] ing:CT Repository 05/22/2018 [id number] Ambulatory [place] 4 [facility] ing:MASS Repository 03/28/2018 [id number] Ambulatory [place] 6 [facility] ing:PSN Repository 03/10/2018 [id number] Ambulatory [place] 8 [facility] ing:MRI Repository 03/06/2018 [id number] Ambulatory [place] 4 [facility] ing:CVS Repository 02/19/2018 [id number] Ambulatory [place] 3 [facility] ing:CT Repository 10/17/2017 [id number] Ambulatory [place] 1 [facility] ing:US Repository PAYERS PAYERS ENCOUNTER GUARANTOR PAYER SUBSCRIBER SOURCE 09/06/2018 MIKE CAGLE Primary Insurance:[facility] AMY LINN [place] [address] PACKAGE PLANPolicy WHITEDOB: [place], [place] Number: [id number] Hospital [address]Vaa: 330 [id number] Repository [phone] () Date:2018-08-20 09/06/2018 Secondary NOT GIVENUNK [place] Insurance:SELF PAY [facility] Number: Effective Repository Date:2018-09-06 09/06/2018 MIKE AREVALO4 Primary Insurance:[facility] AMY LINN [place] [address] PACKAGE PLANPolicy WHITEDOB: [place], [place] Number: [id number] Hospital [address]Qak: 330 [id number] Repository [phone] () Date:2018-08-20 09/06/2018 Secondary NOT GIVENUNK [place] Insurance:SELF PAY [facility] Number: Effective Repository Date:2018-08-20 08/29/2018 MIKE AREVALO4 Primary MIKE VILLARREALB: [place] [address] Insurance:MEDICAL [id number] [address]Soe: 330) Number: Repository [phone] () [id number] Date:[id number] [address]TY: 08/29/2018 Secondary NOT GIVENUNK [place] Insurance:SELF PAY [facility] Number: Effective Repository Date:2018-08-29 08/20/2018 AMY VillarrealB: OHIP Practices WHITEDOB: Insurance:Medical [id number] Repository [id number] [facility] Number: , [place] [address]Xfz: , [place] [address]Nfk: [id number] Date:8883-21-35Dsfq () ()Tel: 330) Name:[facility] [phone] () [address] [place] [id number]: 08/20/2018 Secondary Mike WhiteDOB: OHIP Practices Insurance:Medical [id number] Repository [facility] Number: , [place] [address]Fbv: [id number] Date: - () [id number] Name:[facility] [address]ak, [place] [id number]: 08/10/2018 MIKE CAGLE Primary MIKE VILALRREALB: [place] [address] Insurance:MEDICAL [id number] [address]Mnt: (330) Number: Repository [phone] () [id number] Date:6556-87-57EN [address] [place] [address]HC: 08/10/2018 Secondary NOT GIVENUNK [place] Insurance:SELF PAY [facility] Number: Effective Repository Date:2018-08-10 05/22/2018 MIKE CAGLE Primary NOT GIVENUNK [place] [address] Insurance:SELF PAY [facility] [address]Saj: (330) Number: Effective Repository [phone] () Date:2016-02-17 03/28/2018 MIKE CAGLE Primary MIKE VILLARREALB: [place] [address] Insurance:MEDICAL [id number] [address]Rzv: ([phone]) Number: Repository [phone] () [id number] Date:6601-09-96JD [address] [place] [address]IW: 03/28/2018 Secondary NOT GIVENUNK [place] Insurance:SELF PAY [facility] Number: Effective Repository Date:2018-03-20 03/10/2018 MIKE AREVALO4 Primary MIKE VILLARREALB: [place] Insurance:MEDICAL [id number] [facility]iffin [facility] [address]Hws: (330) Number: Repository [phone] () [id number] Date:3657-41-34BE [place] [id number]: 03/10/2018 Secondary NOT GIVENUNK [place] Insurance:SELF PAY [facility] Number: Effective Repository Date:2018-03-07 03/06/2018 MIKE AREVALO4 Primary MIKE VILLARREALB: [place] [address] Insurance:MEDICAL [id number] Health [facility]iffin Hospital [address]Qeq: (330) Number: Repository [phone] () [id number] Date:2811-39-69QSDan[place] [id number]: 03/06/2018 Secondary NOT GIVENUNK [place] Insurance:SELF PAY [facility] Number: Effective Repository Date:2018-03-06 02/19/2018 MIKE CAGLE Primary MIKE VILLARREALB: [place] [address] Insurance:MEDICAL [id number] Health [facility]iff[facility] Hospital [address]Hbe: (330) Number: Repository [phone] () [id number] Date:6832-85-20JB [address] [place] [id number]: 02/19/2018 Secondary NOT GIVENUNK [place] Insurance:SELF PAY [facility] Number: Effective Repository Date:2018-01-31 10/17/2017 Mike Cagle Primary Mike VillarrealB: [place] Insurance:MEDICAL [id number] [facility] [address]Hyh: (330) Number: Repository [phone] () [id number] Date:2003-26-50[address] [address]LR: 10/17/2017 Secondary NOT GIVENUNK [place] Insurance:SELF PAY [facility] Number: Effective Repository Date:2017-10-16
--- OUTSIDE RECORDS SUMMARY | 2018-11-11 07:53 | XMS RPT_ITS | Continuity of Care Document ---
:1965 Author Organization [facility] Address [address] [facility] [address] [place] [address] Phone Care Team Providers Name Role Phone [...] per Parris, non cancer per [facility] per [place] Status: Active Hair loss (L65.9, 704.00) Status: [...] each nostril daily (55 MCG/ACT) Active Nystatin 270611 UNIT/GM External Powder 1 (one) Powder qd [...] Quantity: 1 {Bottle} Refills: 0 Ordered:21-Apr-2015 [employer] OPTIMIZATION CONSULTANT, Laura Start : 06-Dec-2013 End : 21-Apr-2015 Discontinued Ergocalciferol 16520 UNIT Oral Capsule 1 (one) Capsule Capsule q week for 0 days Quantity: 12 {Capsule} Refills: 3 Ordered:08-Mar-2017 Melania Salcedo Start : 04-Nov-2014 End : 08-Mar-2017 Discontinued Ergocalciferol 07823 UNIT Oral Capsule 1 (one) Capsule Capsule [...] Quantity: 30 {Tablet} Refills: 0 Ordered:21-Apr-2015 Slarb OPTIMIZATION CONSULTANT, Laura Start : 09-Jan-2014 End : 21-Apr-2015 Discontinued LOSARTAN POTASSIUM-HCTZ, 100-25MG (Oral Tablet) 1 tab Tablet qd for 90 days Quantity: 90 {Tablet} Refills: 1 Ordered:21-Apr-2015 Slarb OPTIMIZATION CONSULTANT, Laura Start : 09-Jan-2014 End : 21-Apr-2015 [...] Status: Resolved as of 06-Feb-2015 Vaccine for sxvbkdmqqi-mxeohni-auwgcbqum with poliomyelitis (Z23, V06.3) Status: Inactive as [...] EMG Patient Result: Comments: See Note; NOTES: [facility] Pulmonary Services/Neurology [address] [place] [address] MR#: [id number] Acct: [id number] Name: AMY VALDOVINOS Rep #: [id number] : 0 1965 52 From: Adebayo Canchola [...] Dictated: 03/28/18 1021 Date Transcribed: 03/28/18 1021 Ekg Monitor: NF Signed 10-Mar-2018 Lower Ext No Joint W/WO Cont Result: Comments: See Note; NOTES: [facility] Imaging Services [address] [place] [address] Lower Ext No Joint W/WO Cont MR#: [id number] Acct: [id number] Name: AMY VALDOVINOS Rep #: [id number] : 1965 F 52 From: Ge Moffett MD PCP: Marcelle Daley DO Status: REG CLI Study: Lower Ext No Joint W/WO Cont Date of Exam: 03/10/18 Exam# [id number] Ordering Dr: Marcelle Daley DO STUD Y: [...] Service support , CC: Marcelle Daley DO Ekg Monitor: Signed 06-Mar-2018 Venous Duplex Lower Extremity Result: Comments: See Note; NOTES: [facility] Cardiovascular Services [address] [place] [address] Venous Duplex US, Unilateral 03/06/18 1435 MR#: [id number] Acct: [id number] Name: AMY CHOI Rep #: [id number] : 1965 52 From: Jared Hines MD Attending Dr: Marcelle Daley DO Status: REG CLI Ordering Dr: Marcelle Daley DO Date: 03/06/18 Location: [facility] Sex: F C 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 For Study: LEG SWELLING RIGHT LEFT [...] Dictated: 03/06/18 1435 Date Transcribed: 03/06/18 1623 Ekg Monitor: Signed 19-Feb-2018 Abdomen/Pelvis WITH Contrast Result: Comments: See Note; NOTES: [facility] Imaging Services [address] [place] [address] Abdomen/Pelvis WITH Contrast MR#: [id number] Acct: [id number] Name: AMY VALDOVINOS Rep #: [id number] : 1965 F 52 From: Jono Dumont MD PCP: Marcelle Daley DO Status: REG CLI Study: Abdomen/Pelvis WITH Contrast Date of Exam: 02/19/18 Exam# [id number] Ordering Dr: Marcelle Daley DO S TUDY: [...] Jono Dumont MD at 10:35 EDT Tel [phone], Service support , CC: Marcelle Daley DO Ekg Monitor: Signed 17-Oct-2017 Thyroid Result: Comments: See Note; NOTES: [facility] Imaging Services [address] [place] [address] Thyroid MR#: [id number] Acct: [id number] Name: AMY VALDOVINOS Rep #: [id number] : [birth year] F 52 From: Shine Sawyer MD PCP: Marcelle Daley DO Status: REG CLI Study: Thyroid Date of Exam: 10/17/17 Exam# [id number] Ordering Dr: Marcelle Daley DO STUDY: THYROID [...] Service support , CC: Marcelle Daley DO Ekg Monitor: Signed 01-Aug-2017 SCREENING MAMM (CAD), BILAT Result: Comments: See Note; NOTES: [facility] Imaging Services [address] [place] [address] SCREENING MAMM (CAD), BILAT MR#: [id number] Acct: [id number] Name: AMY VALDOVINOS Rep #: [id number] : 1965 F 52 From: Jono Dumont MD PCP: Marcelle Daley DO Status: REG CLI Study: SCREENING MAMM (CAD), BILAT Date of Exam: 08/01/17 Exam# [id number] Ordering Dr: Marcelle Daley DO [facility] MOGRAPHY - BILATERAL SCREENING REASON [...] delay biopsy of a clinically suspicious abnormality. 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 For Study: SWELLING RIGHT LEFT GSV [...] Dictated: 04/28/17 1357 Date Transcribed: 05/01/17 0855 Ekg Monitor: Signed 28-Apr-2017 Foot min 3 Views Result: Comments: See Note; NOTES: [facility] Imaging Services [address] [place] [address] Foot min 3 Views MR#: [id number] Acct: [id number] Name: AMY VALDOVINOS Rep #: [id number] D OB: 1965 F 51 From: Amarjit Britton DO PCP: Marcelle Daley DO Status: REG CLI Study: Foot min 3 Views Date of Exam: 04/28/17 Exam# [id number] Ordering Dr: Marcelle Daley DO STUDY: X-RAY [...] Amarjit Britton DO at 20:42 EDT Tel [phone], Service support , CC: Marcelle Daley DO Ekg Monitor: Signed 28-Apr-2017 Knee 4 or More Views Result: Comments: See Note; NOTES: [facility] Imaging Services [address] [place] [address] Knee 4 or More Views MR#: [id number] Acct: [id number] Name: AMY VALDOVINOS Rep #: [id number] : 1965 F 51 From: Amarjit Britton DO PCP: Marcelle Daley DO Status: REG CLI Study: Knee 4 or More Views Date of Exam: 04/28/17 Exam# [id number] Ordering Dr: Marcelle Daley DO STUDY: X-RAY [...] Amarjit Britton DO at 20:31 EDT Tel [phone], Service support , CC: Marcelel Daley DO Ekg Monitor: Signed 23-Mar-2017 Liver Result: Comments: See Note; NOTES: [facility] Imaging Services [address] [place] [address] Liver MR#: [id number] Acct: [id number] Name: AMY VALDOVINOS Rep #: [id number] : [birth year] F 51 From: Jono Dumont MD PCP: Marcelle Daley DO Status: REG CLI Study: Liver Date of Exam: 03/23/17 Exam# [id number] Ordering Dr: Marcelle Daley DO STUDY: ABDOMINAL [...] Jono Dumont MD at 8:50 EDT Tel [phone], Service support , CC: Marcelle Daley DO Ekg Monitor: Signed 31-Aug-2016 Thyroid Result: Comments: See Note; NOTES: [facility] Imaging Services [address] [place], [place] [address] [place] [address] Verdana 4d Thyroid MR#: [id number] Acct: [id number] Name: AMY VALDOVINOS Rep #: [id number] : 1965 F 51 From: Amarjit Britton DO PCP: Marcelle Daley DO Status: REG CLI Study: Thyroid Date of Exam: 08/31/16 Exam# [id number] Ordering Dr: Marcelle Daley DO STUDY: THYROID [...] Amarjit Britton DO at 23:35 EST Tel [phone], Service support [phone], CC: Marcelle Daley DO Ekg Monitor: Signed 09-Jun-2016 Bilat Scrn Digital AND CAD Result: Comments: See Note; NOTES: [facility] Imaging Services [address] [facility] [place] [address] Verdana 4d Bilat Scrn Digital AND CAD MR#: [id number] Acct: [id number] Name: AMY VALDOVINOS Rep #: [id number] : 1965 F 51 From: Jono Dumont MD PCP: Marcelle Daley DO Status: REG CLI Study: Bilat Scrn Digital AND CAD Date of Exam: 06/09/16 Exam# [id number] Ordering Dr: Tl Daley DO MAMMOGRAPHY - [...] delay biopsy of a clinically suspicious abnormality. [id number] Electronically Signed: Jono Dumont MD at 15:05 EDT Tel [phone], Servi ce support [phone], CC: Marcelle Daley DO Ekg Monitor: Signed 09-Jun-2016 Dexa Bone Density Study (HP) Result: Comments: See Note; NOTES: [facility] Imaging Services [address] [place] [address] Verdana 4d Dexa Bone Density Study (HP) MR#: [id number] Acct: [id number] Name: AMY VALDOVINOS Rep #: [id number] : 1965 F 51 From: Jono Dumont MD PCP: Marcelle Daley DO Status: REG CLI Study: Dexa Bone Density Study () Date of Exam: 06/09/16 Exam# [id number] Ordering Dr: Marcelle Daley DO STUDY: DUAL [...] Jono Dumont MD at 8:21 EDT Tel [phone], Service support [phone], CC: Marcelle Daley DO Ekg Monitor: Signed 17-May-2016 Shoulder min 2 Views Result: Comments: See Note; NOTES: [facility] Imaging Services [address] [place] [address] Verdana 4d Shoulder min 2 Views MR#: [id number] Acct: [id number] Name: AMY VALDOVINOS Josephine p #: [id number] : 1965 F 50 From: Jono Dumont MD PCP: Marcelle Daley DO Status: REG CLI Study: Shoulder min 2 Views Date of Exam: 05/17/16 Exam# [id number] Ordering Dr: Marcelle Daley DO STUD Y: [...] Dumont MD 06/05/27 at 12:52 EDT Tel [phone], Service support [phone], CC: Marcelle Daley DO Ekg Monitor: Signed 17-Mar-2016 Foot min 3 Views Result: Comments: See Note; NOTES: [facility] Imaging Services [address] [place] [address] Verdana 4d Foot min 3 Views MR#: [id number] Acct: [id number] Name: AMY VALDOVINOS Rep #: [id number] : 1965 F 50 From: Malcom Emmanuel MD PCP: Marcelle Daley DO Status: REG CLI Study: Foot min 3 Views Date of Exam: 03/17/16 Exam# [id number] Ordering Dr: Marcelle Daley DO STUDY: X-RAY [...] Service support , CC: Marcelle Daley DO Ekg Monitor: Signed 10-Nov-2015 Chest without Contrast Result: Comments: See Note; NOTES: [facility] Imaging Services [address] [place] [address] Verdana 4d Chest without Contrast MR#: [id number] Acct: [id number] Name: AMY GUILLERMO Rep #: [id number] : 1965 F 50 From: Ismael Mejia DO PCP: Marcelle Daley DO Status: REG CLI Study: Chest without Contrast Date of Exam: 11/10/15 Exam# [id number] Ordering Dr: Mabel Daley ra, DO ADDENDUM by Ismael Mejia on 11/23/15 at 0952 ADDENDUM ADDENDUM: Review of the soft ti ssues of the supraclavicular regions demonstrate no evidence of lymphadenopathy or other soft tissue abnormality. Electronically Signed: Ismael Mejia DO at 9:52 EDT Tel [phone], Serv ice support [phone], 11/23/15 0952 Date cc: Marcelle Daley DO [...] Ismael Mejia DO at 21:20 EDT Tel [phone], travelfox support [phone], CC: Marcelle Daley DO Ekg Monitor: Signed 10-Nov-2015 Chest without Contrast Result: Comments: See Note; NOTES: [facility] Imaging Services [address] [place] [address] Verdana 4d Chest without Contrast MR#: [id number] Acct: [id number] Name: AMY GUILLERMO Rep #: [id number] : 1965 F 50 From: Ismael Mejia DO PCP: Marcelle Daley DO Status: REG CLI Study: Chest without Contrast Date of Exam: 11/10/15 Exam# [id number] Ordering Dr: Mabel Daley ra, DO STUDY: [...] Ismael Mejia DO at 21:20 EDT Tel [phone], Service support [phone], CC: Marcelle Daley DO Ekg Monitor: Signed 10-Nov-2015 Thyroid Result: Comments: See Note; NOTES: [facility] Imaging Services [address] [place] [address] Verdana 4d Thyroid MR#: [id number] Acct: [id number] Name: AMY VALDOVINOS Rep #: [id number] : 1965 F 50 From: Jono Dumont MD PCP: Marcelle Daley DO Status: REG CLI Study: Thyroid Date of Exam: 11/10/15 Exam# [id number] Ordering Dr: Marcelle Daley DO STUDY: THYROI [...] Jono swann MD at 10:10 EDT Tel [phone], Service support [phone], CC: Marcelle Daley DO Ekg Monitor: Signed 08-Sep-2015 EKG (71714) Comments: ekg showed normal sinus rhythym, left axis, no acute st/t wave changes lv strain Result: [MEASUREMENTS ANALYSIS] Date of Test: 09/08/2015 12:10:48; Heart Rate: 55; MT Interval: 164; QRS: 114; QT Interval: 462; Corrected QT Interval (QTc): 454; P Wave [place]: 34; QRS Wave [place]: -29; T Wave Axi s: -16; Blood Pressure: 148/98 [ECG DIAGNOSTIC STATEMENTS] Date of Test: 09/08/2015 12:10:48; Summary: Sinus Bradycardia -Left axis. Voltage criteria for LVH (S(V1)+R(V6) exceeds 3.50 mV). -Nonspeci fic ST depression -Seen with left ventricular hypertrophy (strain) or digitalis effect. ABNORMAL 26-May-2015 Bilat Scrn Digital AND CAD Result: Comments: See Note; NOTES: [facility] Imaging Services [address] [address] Breast Imaging Report MR#: [id number] Acct: [id number] Name: AMY VALDOVINOS Rep #: [id number] : 1965 F 50 From: Jono Dumont MD PCP: Marcelle Daley DO Status: REG CLI Study: Lesley Scrn Digital AND CAD Date of Exam: 05/26/15 Exam# [id number] Ordering Dr: Marcelle Daley DO MAMMOGRAPHY - [...] Jono Dumont MD at 15:40 EDT Tel [phone], Service support [phone], CC: Marcelle Daley DO Ekg Monitor: Signed 18-May-2015 Chest PA and Lateral Result: Comments: See Note; NOTES: [facility] Imaging Services [address] [place] [address] Radiology Report MR#: [id number] Acct: [id number] Name: AMY VALDOVINOS Rep #: [id number] : 1965 F 49 From: Jono Dumont MD PCP: Marcelle Daley DO Status: REG CLI Study: Chest PA and Lateral Date of Exam: 05/18/15 Exam# [id number] Ordering Dr: Vivian Washington STUDY: X-RA Y [...] Jono Dumont MD at 14:19 EDT Tel [phone], Service support [phone], RAD/Chest PA and Lateral IMPRESSION: No acute abnormality is seen. Electronically Signed: Jono Dumont MD at 14:19 EDT Tel [phone], Service support [phone], CC: Vivian Washington; Marcelle Daley DO Ekg Monitor: Signed 15-Jan-2015 Chest PA and Lateral Result: Comments: See Note; NOTES: [facility] Imaging Services [address] [place] [address] Radiology Report MR#: [id number] Acct: [id number] Name: AMY VALDOVINOS Rep #: [id number] : 1965 F 49 From: Shine Sawyer MD PCP: Marcelle Daley DO Status: REG CLI Study: Chest PA and Lateral Date of Exam: 01/15/15 Exam# [id number] Ordering Dr: Jing Harrison DO STUDY : [...] MD at 23:41 EDT , Service support [phone], RAD/Chest PA and Lateral IMPRESSION: Normal x-ray examination of the chest. Electronically Signed: Shine Sawyer MD at 23:41 E DT , Service support [phone], CC: Marcelle Daley DO; Jing Harrison DO Ekg Monitor: Signed 15-Jan-2015 Inhaler Demo (64387) Result: Comments: I instructed pt to use inhaler, then she redemonstrated the technique back to me. 15-Jan-2015 Spirometry (44152) Comments: obsrtuction present Result: 29-Oct-2014 Abdomen WITH and W/O Contrast Result: Comments: See Note; NOTES: [facility] Imaging Services [address] [place] [address] [place] [address] MRI Report MR#: [id number] Acct: [id number] Name: AMY VALDOVINOS Rep #: [id number] : 1965 F 49 From: Heavenly Rojas MD PCP: Marcelle Daley DO Status: REG CLI Study: Abdomen WITH and W/O Contrast Date of Exam: 10/29/14 Exam# [id number] Ordering Dr: Stanton Caal MD STUDY: M [...] at 1 1:15 EDT , Service support [phone], CC: Marcelle Daley DO; Stanton Caal MD Ekg Monitor: Signed 23-Jun-2014 Esophagus Only Result: Comments: See Note; NOTES: [facility] Imaging Services [address] [place] [address] Radiology Report MR#: [id number] Acct: [id number] Name: AMY VALDOVINOS Rep #: [id number] : 1965 F 49 From: Jono Dumont MD PCP: Status: REG CLI Study: Esophagus Only Date of Exam: 06/23/14 Exam# [id number] Ordering Dr: Jing Harrison DO STUDY: X-RAY [...] Jono Dumont MD at 9:21 EST Tel [phone], Service support [phone], RAD/Esophagus Only IMPRESSION: Small sliding hiatal hernia with no evidence of gastroesophageal reflux. Electronically Signed: Jono Dumont MD at 9:21 EST Tel [phone], Service support [phone], CC: Jing Harrison DO Ekg Monitor: Signed 23-Jun-2014 Thyroid Result: Comments: See Note; NOTES: [facility] Imaging Services [address] [place] [address] Ultrasound Report MR#: [id number] Acct: [id number] Name: AMY VALDOVINOS Rep #: [id number] : 1965 F 49 From: Jono Dumont MD PCP: Status: REG CLI Study: Thyroid Date of Exam: 06/23/14 Exam# [id number] Ordering Dr: Jing Harrison DO STUDY: THYROID [...] Jono Dumont MD at 15:38 EST Tel [phone], Service support [phone], C C: Jing Harrison DO Ekg Monitor: Signed 30-Nov-2013 Abdomen/Pelvis WITH Contrast Result: Comments: See Note; NOTES: [facility] Imaging Services [address] [place] [address] CAT Scan Report MR#: [id number] Acct: [id number] Name: AMY VALDOVINOS Rep #: [id number] : 1965 F 48 From: Jesse Carrington MD PCP: Marcelle Daley DO Status: REG CLI Study: Abdomen/Pelvis WITH Contrast Date of Exam: 11/30/13 Exam# [id number] Ordering Dr: Vivian Washington STUDY: CT ABDOMEN [...] Dr. Iglesia Lee M.D.; Stanton Caal MD Ekg Monitor: Signed 26-Nov-2013 Kidney and Bladder Result: Comments: See Note; NOTES: [facility] Imaging Services [address] [facility] [place] [address] Ultrasound Report MR#: [id number] Acct: [id number] Name: AMY VALDOVINOS Rep #: [id number] : 1965 F 48 From: Jono Dumont MD PCP: Marcelle Daley DO Status: REG CLI Study: Kidney and Bladder Date of Exam: 11/26/13 Exam# [id number] Ordering Dr: Vivian Washington STUDY: RENAL ULTRASOUND [...] at 12:56 EDT Tel , Service support [phone], CC: Vivian Daley DO Ekg Monitor: Signed 31-May-2013 Knee 4 or More Views Result: Comments: See Note; NOTES: [facility] Imaging Services [address] [place] [address] Radiology Report MR#: [id number] Acct: [id number] Name: AMY VALDOVINOS Rep #: [id number] : 1965 F 48 From: Jono Dumont MD PCP: Status: REG CLI Study: Knee 4 or More Views Date of Exam: 05/31/13 Exam# [id number] Ordering Dr: Vivian Washington STUDY: X-RAY - [...] May 31, 2013 at 1:16:23 PM EDT [phone] Electronically Signed GP/GP If you are the referring physician and would like to consult with the radiologist w ho provided this interpretation, please contact Jono Dumont M.D. at [phone]. If this radiologist is unavailable, you will be directed to another radiologist to assist. If you are a veronica ent with a question regarding this report, please contact your referring physician directly. Professional Interpretation Provided By: [email or web address], Phone , These docum ents contain legally [...] destruction of these documents. 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 Status: Active No [...] kg/m2 Body Surface Area Calculated 2.19 m2 01-Zdy-776000:16 Temperature 97.5 f Comments: Method: Temporal Pulse [...] kg/m2 Body Surface Area Calculated 2.25 m2 66-Lsq-451701:59 Temperature 97.9 f Comments: Method: Oral Pulse [...] kg/m2 Body Surface Area Calculated 2.18 m2 29-Igj-342143:03 Temperature 97.8 f Pulse 64 /min Comments: [...] 2.21 m2 Results Date Description Value Details :26 urine immunofixation (03777) Comments: PATIENT NOT FASTINGPERFORMED BY: CHUY [facility] [id number] DIANNA Interpretation:U UPEIP (Normal) Comments: No monoclonality detected. 7-Kbg-284342:26 serum immunofixation (74878) Comments: PATIENT NOT FASTINGPERFORMED BY: CHUY Casperblin [place] [id number] Immunoglobulin M, Qn, Serum 42 mg/dL (Normal) Range: 26-217 Immunoglobulin A, Qn, Serum 405 mg/dL (Abnormal) Range: 87-352 Immunoglobulin G, Qn, Serum 904 mg/dL (Normal) Range: 700-1600 Immunofixation Result, Serum IFEAL (Normal) Comments: Immunofixation shows IgA monoclonal protein with lambda light chainspecificity. 11-Ifz-820630:39 RHEUMATOID FACTOR-QUANT Comments: send copy to Dr. Evelio Kaur [phone]; A courtesy copy of this report has been sent [phone].PATIENT NOT FASTINGPERFORMED BY: [employer]70 [facility] [id number] (10232) RA Latex Turbid. <10.0 {IU/mL} (Normal) Range: 0.0-13.9 :39 IMMUNOFIXATION, SERUM (48873) Comments: send copy to Dr. Evelio Kaur [phone]; A courtesy copy of this report has been sent [phone].PATIENT NOT FASTINGPERFORMED BY: LettuceThinner Lnkjur0665 [facility] [id number] [facility] Information: FX DR MEIER [phone] Immunoglobulin M, Qn, Serum 43 mg/dL (Normal) Range: 26-217 Immunoglobulin A, Qn, Serum 356 mg/dL (Abnormal) Range: 87-352 Immunoglobulin G, Qn, Serum 969 mg/dL (Normal) Range: 700-1600 Immunofixation Result, Serum IFEAL (Normal) Comments: Immunofixation shows IgA monoclonal protein with lambda light chainspecificity. :39 HIV-1 ANTIBODY (20000) Comments: send copy to Dr. Fraser [phone]; A courtesy copy of this report has been sent [phone].PATIENT NOT FASTINGPERFORMED BY: LettuceThinner Ygwilz7372 [facility] [id number] HIV Screen 4th Generation wRfx Non Reactive (Normal) :39 HEPATITIS C ANTIBODY (48974) Comments: send copy to Dr. Evelio Kaur [phone]; A courtesy copy of this report has been sent [phone].PATIENT NOT FASTINGPERFORMED BY: ApokalyyisEast Orange VA Medical CenterRfphom9717 [facility] [id number] Hep C Virus Ab <0.1 {s/co_ratio} (Normal) Range: 0.0-0.9 Comments: Negative: < 0.8 Indeterminate: 0.8 - 0.9 Positive: > 0.9 . The CDC recommends that a positive HCV antibody result be followed up with a HCV Nucleic Acid Amplification test (849154). :39 FOLIC ACID SERUM (61750) Comments: send copy to Dr. Evelio Kaur [phone]; A courtesy copy of this report has been sent [phone].PATIENT NOT FASTINGPERFORMED BY: ApokalyyisEast Orange VA Medical CenterCxoxho9791 [facility] [id number] Folate (Folic Acid), Serum 14.3 ng/mL (Normal) Comments: A serum folate concentration of less than 3.1 ng/mL isconsidered to represent clinical deficiency. 48-Udx-771021:39 ANTIEXTARACT NUCLEAR AG 6338 Comments: send copy to Dr. Evelio Kaur [phone]; A courtesy copy of this report has been sent [phone].PATIENT NOT FASTINGPERFORMED BY: [facility]RoomStra[facility] Surgery6370 [facility] [id number] (95801) Up Antibodies <0.2 {AI} (Normal) Range: 0.0-0.9 PATIENT SERVICES SPECIALIST Antibodies <0.2 {AI} (Normal) Range: 0.0-0.9 :39 LOLITA (ANTINUCLEAR ANTIBODY) Comments: send copy to Dr. Evelio Kaur [phone]; A courtesy copy of this report has been sent [phone].PATIENT NOT FASTINGPERFORMED BY: ContractRoomKelly [place] 7415070 [facility] [id number] (29405) LOLITA Direct Negative (Normal) 25-Jul-20189:13 Vitamin B-12 (cyanocobalamin) Comments: PATIENT WAS FASTINGPERFORMED BY: [facility]6370 [facility] [id number] (53086) Vitamin B12 341 pg/mL (Normal) Range: 232-1245 :13 CBC with auto diff (93138) Comments: PATIENT WAS FASTINGPERFORMED BY: [facility]Stra[facility] Surgery6370 [facility] [id number]; appt 07/27 Immature Grans (Abs) 0.0 {x10E3/uL} [...] PANEL, COMPREHENSIVE Comments: PATIENT WAS FASTINGPERFORMED BY: Apokalyyis Devario [facility] [id number] (87220) ALT (SGPT) 19 [iU]/L (Normal) Range: 0-32 [...] Glucose 80 mg/dL (Normal) Range: 65-99 25-Jul-20189:13 VCTOL-WWELELMJBFA-MNWIC (41672) Comments: PATIENT WAS FASTINGPERFORMED BY: ApokalyyisEast Orange VA Medical CenterCplgya3060 [facility] [id number] AFP, Serum, Tumor Marker 3.6 ng/mL (Normal) Range: 0.0-8.3 Comments: Ozzie ECLIA methodology 08-Chw-748080:05 URINE KENROY CULTURE-IDENTIFICATN Comments: PATIENT NOT FASTINGPERFORMED BY: ApokalyyisEast Orange VA Medical CenterJxsgtg2222 [facility] [id number] Information: SRC:EMILY (02035) Result 1 MUG (Normal) Comments: Mixed urogenital flora1,000 Colonies/mL Urine Culture,Comprehensive Final report (Normal) 79-Akl-145198:56 Urinalysis, Office (95517) UA - LEUKOCYTE ESTERASE Trace (Normal) UA - NITRITE Negative (Normal) URINE UROBILINGN JUAN TIMED Normal mg/dL (Normal) UA - PROTEIN Trace mg/dL (Normal) UA - PH 5 (Abnormal) UA - BLOOD Negative (Normal) UA - SPECIFIC GRAVITY 1.030 (Abnormal) UA - KETONES Negative mg/dL (Normal) UA - BILIRUBIN Small (Normal) UA - GLUCOSE Negative (Normal) 84-Pmb-170016:28 CBC, PLATELETS & AUT DIFF Comments: PATIENT WAS FASTINGPERFORMED BY: [facility] Cqwvyx1449 [facility] [id number] (08484) Immature Grans (Abs) 0.0 {x10E3/uL} (Normal) Range: [...] B-12 (CYANOCOBALAMIN) Comments: PATIENT WAS FASTINGPERFORMED BY: Apokalyyis Abxxom9237 [facility] [id number] (76781) Vitamin B12 413 pg/mL (Normal) Range: 232-1245 :28 Vitamin D Hydroxy (05869) Comments: PATIENT WAS FASTINGPERFORMED BY: Apokalyyis Sqoxjq5524 [facility] [place] [id number] Vitamin D, 25-Hydroxy 52.6 ng/mL (Normal) Range: 30.0-100.0 Comments: Vitamin D deficiency has been defined by the [place] of[facility]cine and an Endocrine Society practice guideline as alevel of serum 25-OH vitamin D less than 20 ng/mL (1,2).The Endocrine Society went on to further define vitamin Dinsufficiency as a level between 21 and 29 ng/mL (2).1. IOM ([place] of Medicine). 2010. Dietary reference intakes for calcium and D. [place]: The National Academies Press.2. Myla MF, Javier NC, Panfilo MANN, et al. Evaluation, treatment, and prevention of vitamin D deficiency: an Endocrine Society clinical practice guideline. JCEM. 2010; 96(7):1911-30. :28 LIPID PANEL (65419) Comments: PATIENT WAS FASTINGPERFORMED BY: LabConvrrt Dqpsvm9456 [facility] [place] [id number] LDL/HDL Ratio 1.3 {ratio} (Normal) Range: 0.0-3.2 Comments: LDL/HDL Ratio Men Women 1/2 Avg.Risk 1.0 1.5 Av g.Risk 3.6 3.2 2X Avg.Risk 6.2 5.0 3X Avg.Risk 8.0 6.1 LDL Cholesterol Calc 51 mg/dL (Normal) Range: 0-99 VLDL Cholesterol Kirby 11 mg/dL (Normal) Range: 5-40 HDL Cholesterol 38 mg/dL (Abnormal) Triglycerides 55 mg/dL (Normal) Range: 0-149 Cholesterol, Total 100 mg/dL (Normal) Range: 100-199 63-Iwu-665734:38 HgA1C , Office (42441) HgA1C , Office 6.1 % (Normal) Range: 4.6 - 7.1 47-Jog-821772:28 HGB A1C (06287) Comments: PATIENT WAS FASTINGPERFORMED BY: [employer] [facility] [id number] Hemoglobin A1c 5.6 % (Normal) Range: 4.8-5.6 Comments: . Prediabetes: 5.7 - 6.4 Diabetes: >6.4 Glycemic control for adults with diabetes: <7.0 :28 CPIAW-YCCGWSRBKZM-ACZIZ (79480) Comments: PATIENT WAS FASTINGPERFORMED BY: [employer] [facility] [id number] AFP, Serum, Tumor Marker 3.6 ng/mL (Normal) Range: 0.0-8.3 Comments: Ozzie ECLIA methodology :28 MICROALBUMIN: CREATININE RATIO Comments: PATIENT WAS FASTINGPERFORMED BY: [employer] [facility] [id number] (57386) AND (25171) Alb/Creat Ratio 4.1 {mg/g_creat} (Normal) Range: 0.0-30.0 Albumin, Urine 5.8 ug/mL (Normal) Creatinine, Urine 139.9 mg/dL (Normal) 96-Wec-520236:28 METABOLIC PANEL, COMPREHENSIVE Comments: PATIENT WAS FASTINGPERFORMED BY: [employer] [facility] [id number]; review at 05/07 appt (51723) ALT (SGPT) 19 [iU]/L (Normal) Range: 0-32 [...] mg/dL (Normal) Range: 65-99 23-Jan-20188:21 LIPID PANEL (68252) Comments: PATIENT WAS FASTINGPERFORMED BY: LiveData70 [facility] [id number] LDL/HDL Ratio 1.6 {ratio} (Normal) Range: 0.0-3.2 [...] Range: 100-199 :21 CBC W/AUTO DIFF WBC (48296) Comments: PATIENT WAS FASTINGPERFORMED BY: PeerJ6370 [facility] [id number]; review on 01/31 Immature Grans (Abs) 0.0 [...] PANEL, COMPREHENSIVE Comments: PATIENT WAS FASTINGPERFORMED BY: [facility]6370 [facility] [id number] (68027) ALT (SGPT) 18 [iU]/L (Normal) Range: 0-32 [...] 6-24 Glucose 98 mg/dL (Normal) Range: 65-99 79-Cpb-122081:22 TSH (47495) Comments: PATIENT NOT FASTINGPERFORMED BY: PeerJ6370 [facility] [id number] TSH 1.150 {uIU/mL} (Normal) Range: 0.450-4.500 58-Hdt-068238:22 SED RATE ERYTHROCYTE (14875) Comments: PATIENT NOT FASTINGPERFORMED BY: LettuceThinner Levgwk5576 [facility] [id number] Sedimentation Rate-Westergren 8 mm/h (Normal) Range: 0-40 59-Utt-066209:22 C-REACTIVE PROTEIN (53133) Comments: PATIENT NOT FASTINGPERFORMED BY: LettuceThinner Ieicqc1235 [facility] [id number] C-Reactive Protein, Quant 2.5 mg/L (Normal) Range: 0.0-4.9 06-Bua-541820:22 LOILTA (ANTINUCLEAR ANTIBODY) Comments: PATIENT NOT FASTINGPERFORMED BY: Apokalyyis Oiwedw4110 [place] RoadDublin [place] [id number] (82267) LOLITA Direct Negative (Normal) 49-Ydo-344825:22 VITAMIN B-12 (CYANOCOBALAMIN) Comments: PATIENT NOT FASTINGPERFORMED BY: ApokalyyisUNM Sandoval Regional Medical CenterYcsjun1367 Vaca RoadDublin [place] [id number] (34574) Vitamin B12 340 pg/mL (Normal) Range: 232-1245 27-Lgo-209378:22 IRON (73934) Comments: PATIENT NOT FASTINGPERFORMED BY: Apokalyyis Rgbfrv3564 [address] RoadDublin [place] [id number] Iron, Serum 57 ug/dL (Normal) Range: 27-159 44-Ntf-471598:22 FERRITIN (79847) Comments: PATIENT NOT FASTINGPERFORMED BY: ApokalyyisUNM Sandoval Regional Medical CenterTpqlpn6938 [address]aca RoadDublin [place] [id number] Ferritin, Serum 220 ng/mL (Abnormal) Range: 15-150 42-Jmm-882391:27 Albumin/Creatinine Comments: PATIENT WAS FASTINGPERFORMED BY: ApokalyyisUNM Sandoval Regional Medical CenterXppdxx0146 [address] [facility] Ar[facility] HospitalDublin [place] [id number] BY: ContractRoom[address] [id number] Ratio,Urine Alb/Creat Ratio 5.5 {mg/g_creat} (Normal) Range: 0.0-30.0 Albumin, Urine 9.6 ug/mL (Normal) Creatinine, Urine 176.1 mg/dL (Normal) 83-Ngi-419125:27 Vitamin D Hydroxy Comments: PATIENT WAS FASTINGPERFORMED BY: Apokalyyis Fnvxjh2332 Vaca RoadDublin [place] [id number] BY: [address] [id number] (42374) Vitamin D, 25-Hydroxy 44.1 ng/mL (Normal) Range: 30.0-100.0 Comments: Vitamin D deficiency has been defined by the [place] ofMedicine and an Endocrine Society practice guideline as alevel of serum 25-OH vitamin D less than 20 ng/mL (1,2).The Endocrine Society went on to further define vitamin Dinsufficiency as a level between 21 and 29 ng/mL (2).1. IOM ([place] of Medicine). 2010. Dietary reference intakes for calcium and D. [place]: The National Academies Press.2. Myla MF, Javier STUART, Panfilo MANN, et al. Evaluation, treatment, and prevention of vitamin D deficiency: an Endocrine Society clinical practice guideline. JCEM. 2010; 96(7):1911-30. 32-Nhx-718026:27 HGB A1C (49546) Comments: PATIENT WAS FASTINGPERFORMED BY: [employer] [facility] [id number] BY: Brainscape[address] [id number] Hemoglobin A1c 5.7 % (Abnormal) Range: 4.8-5.6 Comments: . Pre-diabetes: 5.7 - 6.4 Diabetes: >6.4 Glycemic control for adults with diabetes: <7.0 03-Wvx-358700:27 LWSXL-MEBXSHDERVB-GDKUD (17766) Comments: PATIENT WAS FASTINGPERFORMED BY: PeerJ6370 [place] [id number] BY: Apokalyyis[address] [id number] AFP, Serum, Tumor Marker 4.0 ng/mL (Normal) Range: 0.0-8.3 Comments: Ozzie ECLIA methodology 63-Ndu-011765:27 METABOLIC PANEL, Comments: PATIENT WAS FASTINGPERFORMED BY: [employer] [facility] [id number] BY: Apokalyyis[address] [id number] COMPREHENSIVE (37783) ALT (SGPT) 21 [iU]/L (Normal) Range: 0-32 [...] Glucose, Serum 84 mg/dL (Normal) Range: 65-99 69-Rhj-059545:27 CBC with auto diff Comments: PATIENT WAS FASTINGPERFORMED BY: CB [facility] Mhagwn7390 [facility] [id number] BY: BN [facility] Dygqtsqhkt7175 [facility] [id number] (87293) Immature Grans (Abs) 0.0 {x10E3/uL} (Normal) Range: [...] 3.77-5.28 WBC 7.7 {x10E3/uL} (Normal) Range: 3.4-10.8 37-Wsr-361955:27 LIPID PANEL (49447) Comments: PATIENT WAS FASTINGPERFORMED BY: CB [facility] [address] [id number] BY: [facility] [address] [id number] LDL/HDL Ratio 1.5 {ratio_units} (Normal) Range: 0.0-3.2 Comments: LDL/HDL Ratio Men Women 1/2 Avg.Risk 1.0 1.5 Av g.Risk 3.6 3.2 2X Avg.Risk 6.2 5.0 3X Avg.Risk 8.0 6.1 LDL Cholesterol Calc 69 mg/dL (Normal) Range: 0-99 VLDL Cholesterol Kirby 17 mg/dL (Normal) Range: 5-40 HDL Cholesterol 46 mg/dL (Normal) Triglycerides 85 mg/dL (Normal) Range: 0-149 Cholesterol, Total 132 mg/dL (Normal) Range: 100-199 48-Cbs-703281:27 IGA/IGD/IGG/IGM-EACH (12527) Comments: PATIENT WAS FASTINGPERFORMED BY: CB LabCoEast Orange VA Medical CenterCiipcf9567 [facility] [id number] BY: LabPamela V[place] 600587 [facility] [id number] Immunoglobulin E, Total 18 {IU/mL} (Normal) Range: 0-100 Immunoglobulin M, Qn, Serum 43 mg/dL (Normal) Range: 26-217 Immunoglobulin A, Qn, Serum 332 mg/dL (Normal) Range: 87-352 Immunoglobulin G, Qn, Serum 848 mg/dL (Normal) Range: 700-1600 1-Non-030564:23 METABOLIC PANEL, COMPREHENSIVE Comments: PATIENT NOT FASTINGPERFORMED BY: [facility]6370 [facility] [id number] (26315) ALT (SGPT) 16 [iU]/L (Normal) Range: 0-32 [...] Glucose, Serum 92 mg/dL (Normal) Range: 65-99 58-Uof-247841:10 RUBEOLA IgG (65307) Comments: PATIENT NOT FASTINGPERFORMED BY: [facility]6370 [facility] [id number] Rubeola Ab, IgG 44.9 AU/mL (Normal) Comments: Negative <25.0 Equivocal 25.0 - 29.9 Positive >29.9 Presence of antibodies to Rubeola is presumptive evidence of immunity except when acute infection is suspected. 20-Ipu-794820:10 RUBELLA IgG (79184) Comments: PATIENT NOT FASTINGPERFORMED BY: [address] [id number] Rubella Antibodies, IgG 17.40 {index} (Normal) Comments: Non-immune <0.90 Equivocal 0.90 - 0.99 Immune >0.99 :10 MUMPS IgG (07026) Comments: PATIENT NOT FASTINGPERFORMED BY: [facility]6370 [facility] [id number] Mumps Abs, IgG >300.0 AU/mL (Normal) Comments: Negative <9.0 Equivocal 9.0 - 10.9 Positive >10.9 A positive result genera lly indicates past exposure to Mumps virus or previous vaccination. 2-Bfk-595735:23 HEPATITIS C ANTIBODY (40070) Comments: PATIENT NOT FASTINGPERFORMED BY: [facility]6370 [facility] [id number] Hep C Virus Ab 0.1 {s/co_ratio} (Normal) Range: 0.0-0.9 Comments: Negative: < 0.8 Indeterminate: 0.8 - 0.9 Positive: > 0.9 . The CDC recommends that a positive HCV antibody result be followed up with a HCV Nucleic Acid Amplification test (794436). :07 AFP, Tumor Marker Comments: Is Patient ? [facility] (refer to report for specific site)refer to report for address and phone number AFP TUMOR 2253 3.9 ng/mL (Normal) Range: 0.0-8.3 Comments: Ozzie ECLIA methodologyPerformed at: [facility] Yrtvzb5381 [place], [place] [id number] Director: Harjinder Houston PhD, Phone: [phone] 34-Tsp-857230:07 Comprehensive Metabolic Profil Comments: [facility] Lhlwtkdftg7257 [address] [place], [place], [id number] GAP 6 (Normal) Range: 5-15 CO2 27.0 [...] 7-18 GLU 80 mg/dL (Normal) Range: 70-110 46-Ojr-372046:07 Hemoglobin A1c Comments: [facility] Wjqapeagqf4469 [place], [address] HGB A1C 5.9 % (Normal) Range: 4.2-6.3 82-Omv-917852:07 Lipid Profile Comments: [facility] Lmvgummczk5245 [address]. [place], [address] VLDL 18 mg/dL (Normal) Range: 5-40 LDL [...] 200-240 mg/dL Borderline >240 mg/dL High Risk :07 Thyroid Stim Hormone (TSH) Comments: [facility] Pefvuniima8979 [address]. [place], [id number] TSH 1.11 {uIU/mL} (Normal) Range: 0.358-3.74 95-Nbd-344456:07 Vitamin B12 401 pg/mL (Normal) Comments: [facility] Wwvsoebjvq7665 ADONAY Snell, [id number] Range: 211-911 03-Byv-075268:07 Vitamin D,25 Hydroxy Comments: [facility] Njzedxsjot7582 [address] [place], [address] Vitamin D 25-OH 37.7 ng/mL (Normal) Comments: Vitamin D 25(OH) Status Range Deficiency <20 ng/mL (50nmol/L) Insuffciency 20 - 30 ng/mL (50 - 75 nmol/L) Sufficiency 30 - 100 ng/mL (75 - 250 nmol/L) Toxicity >100 ng/mL (>250 nmol/L) 66-Xwo-121808:54 TSH (09649) Comments: PATIENT WAS FASTINGPERFORMED BY: LabCoEast Orange VA Medical CenterEmasgl2658 [facility] [id number] TSH 1.440 {uIU/mL} (Normal) Range: 0.450-4.500 :54 VITAMIN B-12 (CYANOCOBALAMIN) Comments: PATIENT WAS FASTINGPERFORMED BY: [facility]RoomStra[facility] Surgery6370 [facility] [id number] (33429) Vitamin B12 273 pg/mL (Normal) Range: 211-946 :47 Vitamin D Hydroxy Comments: PATIENT WAS FASTINGPERFORMED BY: ApokalyyisSelect at BellevilleNxkecohzbk3837 [facility] [id number] BY: ContractRoomStra[facility] Surgery6370 [facility] [id number] (88837) Vitamin D, 25-Hydroxy 29.6 ng/mL (Abnormal) Range: 30.0-100.0 Comments: Vitamin D deficiency has been defined by the [place] ofMedicine and an Endocrine Society practice guideline as alevel of serum 25-OH vitamin D less than 20 ng/mL (1,2).The Endocrine Society went on to further define vitamin Dinsufficiency as a level between 21 and 29 ng/mL (2).1. IOM ([place] of Medicine). 2010. Dietary reference intakes for calcium and D. [place]: The National Academies Press.2. Myla MF, Javier STUART, Panfilo MANN, et al. Evaluation, treatment, and prevention of vitamin D deficiency: an Endocrine Society clinical practice guideline. JCEM. 2010; 96(7):1911-30. :47 METABOLIC PANEL, Comments: PATIENT WAS FASTINGPERFORMED BY: ApokalyyisSelect at BellevilleRpymzkclfs5480 [facility] [id number] BY: ContractRoomStra[facility] Surgery6370 [facility] [id number] COMPREHENSIVE (75058) ALT (SGPT) 21 [iU]/L (Normal) Range: 0-32 [...] Glucose, Serum 87 mg/dL (Normal) Range: 65-99 5-Pcy-699204:47 LIPOPROTEIN, BLD, BY NMR Comments: PATIENT WAS FASTINGPERFORMED BY: [facility] [address] [id number] BY: [facility] [address] [id number] Information: [id number] (50537) LP-IR Score 69 (Abnormal) Comments: INSULIN RESISTANCE MARKER <--Insulin Sensitive Insulin Resistant--> Percentile in Reference PopulationInsulin Resistance ScoreLP-IR Score Low 25th 50th 75th High <27 27 45 63 >63LP-IR Score is inaccurate if patient is non-fasting. .The LP-IR score is a laboratory developed i [facility] that has beenassociated with insulin resistance [...] were developed and their performance characteristicsdetermined by [facility]. These assays have not been cleared by [...] 1600 - 2000 Very High > 2000 5-Ucs-386556:47 MICROALBUMIN: CREATININE Comments: PATIENT WAS FASTINGPERFORMED BY: Lab[address] [id number] BY: LabStraith [facility] Surgery6370 [facility] [id number] RATIO (33853) AND (17967) Microalb/Creat Ratio 10.3 {mg/g_creat} (Normal) Range: 0.0-30.0 Microalbumin, Urine 16.3 ug/mL (Normal) Creatinine, Urine 157.7 mg/dL (Normal) 9-Abk-720493:47 HGB A1C (28622) Comments: PATIENT WAS FASTINGPERFORMED BY: LabPamela [place] 600587 [facility] [id number] BY: LabStra[facility] Surgery6370 [facility] [id number] Hemoglobin A1c 6.1 % (Abnormal) Range: 4.8-5.6 Comments: . Pre-diabetes: 5.7 - 6.4 Diabetes: >6.4 Glycemic control for adults with diabetes: <7.0 :4 ASPIRATION (SLIDES ONLY) See Note (Normal) Comments: [facility] Tgjedtnbpo5064 [place], [address] 5 Comments: Patient: AMY VALDOVINOS : 1965 (51/F) Acct Num: [id number] Phys: Devorah DÍAZ,Richar Unit Num: [id number] Loc: LABSPEC Specimen: [id number] Received: 10/07/16 - 1206 Spec Type: ASPIRATION TISSUES TISSUES: COMMENT The specimen is paucicellular and contains rare benign follicular cells and focal chronic inflammatory cells. Clinical correlation is suggested. CYTOLOGY GROSS Received are eight smears labeled with the patient's name and designated per therequisition as FNA left thyroid. Submitted for staining. 10/07/16 TC:5 CPT: 88090 CYTOLOGY STUDY Slides are reviewed. DIAGNOSIS CYTOLOGY Fine needle aspiration, left thyroid nodule (smears): Negative, consistent with colloid nodule. AM:cecil 10/10/16 HEADER OPERATION: Ult rasound-guided fine needle aspiration, left thyroid PRE-OP DIAGNOSIS: Multinodular goiter E04.2 TISSUE SUBMITTED: Fine needle aspiration, left thyroid (8 slides) Signed Enio Dhaliwal 10/10/16 <signature on file> :56 OIVAH-DKLUPSMKOHB-VAPHC (34857) Comments: PATIENT WAS FASTINGPERFORMED BY: LabCo[address] [id number] BY: Lab[facility] Zyoodj5502 [address] RoadDublin [place] [id number] AFP, Serum, Tumor Marker 3.2 ng/mL (Normal) Range: 0.0-8.3 Comments: Ozzie ECLIA methodology :56 VITAMIN B-12 (CYANOCOBALAMIN) Comments: PATIENT WAS FASTINGPERFORMED BY: [facility] [address] [id number] BY: [facility] Nruiyh4441 [address] RoadDublin [place] [id number] (54252) Vitamin B12 302 pg/mL (Normal) Range: 211-946 :56 Vitamin D Hydroxy Comments: PATIENT WAS FASTINGPERFORMED BY: [facility] [address] [id number] BY: LabEnerplant Rwtilr3093 [address] RoadDublin [place] [id number] (30043) Vitamin D, 25-Hydroxy 25.1 ng/mL (Abnormal) Range: 30.0-100.0 Comments: Vitamin D deficiency has been defined by the [place] ofMedicine and an Endocrine Society practice guideline as alevel of serum 25-OH vitamin D less than 20 ng/mL (1,2).The Endocrine Society went on to further define vitamin Dinsufficiency as a level between 21 and 29 ng/mL (2).1. IOM ([place] of Medicine). 2010. Dietary reference intakes for calcium and D. [place]: The National Academies Press.2. Myla MF, Javier STUART, Panfilo MANN, et al. Evaluation, treatment, and prevention of vitamin D deficiency: an Endocrine Society clinical practice guideline. JCEM. 2010; 96(7):1911-30. 9-Ywx-282624:56 CBC W/AUTO DIFF WBC Comments: PATIENT WAS FASTINGPERFORMED BY: ApokalyyisAnne Ville 913067 [facility] [id number] BY: ApokalyyisJohn Ville 2579370 [facility] [id number] (74072) Immature Grans (Abs) 0.0 {x10E3/uL} (Normal) Range: [...] 3.77-5.28 WBC 9.9 {x10E3/uL} (Normal) Range: 3.4-10.8 1-Ams-436277:56 METABOLIC PANEL, Comments: PATIENT WAS FASTINGPERFORMED BY: Apokalyyis[address] [id number] BY: ApokalyyisEast Orange VA Medical CenterWdzhoj7041 [facility] [id number] COMPREHENSIVE (12586) ALT (SGPT) 18 [iU]/L (Normal) Range: 0-32 [...] Glucose, Serum 89 mg/dL (Normal) Range: 65-99 2-Kdy-983931:56 LIPOPROTEIN, BLD, BY NMR Comments: PATIENT WAS FASTINGPERFORMED BY: BN [facility] [address] [id number] BY: CB [facility] Mfockz3905 [facility] [id number] (55345) LP-IR Score 66 (Abnormal) Comments: INSULIN RESISTANCE MARKER <--Insulin Sensitive Insulin Resistant--> Percentile in Reference PopulationInsulin Resistance ScoreLP-IR Score Low 25th 50th 75th High <27 27 45 63 >63LP-IR Score is inaccurate if patient is non-fasting. .The LP-IR score is a laboratory developed i charissa that has beenassociated with insulin resistance and [...] 1600 - 2000 Very High > 2000 9-Rll-223206:10 HgA1C , Office (16977) HgA1C , Office 5.8 % (Normal) Range: 4.6 - 7.1 0-Els-988419:10 Blood Glucose , Office (65651) Blood Glucose , Office 80 (Normal) 71-Tml-809413:18 Magnesium (85882) Comments: PATIENT NOT FASTINGPERFORMED BY: Apokalyyis Bbwkus6962 [address] [facility] [id number] Magnesium, Serum 2.3 mg/dL (Normal) Range: 1.6-2.3 :35 KMDSK-ZVCIOODGCDQ-XTPDC (67086) Comments: PATIENT WAS FASTINGPERFORMED BY: [employer] PL6370 [facility] [id number] AFP, Serum, Tumor Marker 3.0 ng/mL (Normal) Range: 0.0-8.3 Comments: Ozzie ECLIA methodology :35 CBC W/AUTO DIFF WBC Comments: PATIENT WAS FASTINGPERFORMED BY: [employer] PL6370 [facility] [id number] Information: [id number] (10659) Immature Grans (Abs) 0.0 {x10E3/uL} (Normal) Range: [...] WAS FASTINGPERFORMED BY: LabCoEast Orange VA Medical CenterLrtivg6161 [facility] [id number] (34758) ALT (SGPT) 14 [iU]/L (Normal) Range: 0-32 [...] Glucose, Serum 83 mg/dL (Normal) Range: 65-99 34-Lfk-674058:10 CBC W/AUTO DIFF WBC Comments: PATIENT WAS FASTINGPERFORMED BY: [employer]70 [employer] [facility] [id number] Information: [id number] (08727) Immature Grans (Abs) 0.0 {x10E3/uL} (Normal) Range: [...] 3.77-5.28 WBC 7.1 {x10E3/uL} (Normal) Range: 3.4-10.8 21-Bmj-053967:10 METABOLIC PANEL, COMPREHENSIVE Comments: PATIENT WAS FASTINGPERFORMED BY: [employer] SecurityAtrium Health Harrisburgin [place] [id number] (65624) ALT (SGPT) 14 [iU]/L (Normal) Range: 0-32 [...] Glucose, Serum 79 mg/dL (Normal) Range: 65-99 36-Rzb-145277:10 TSH (46867) Comments: PATIENT WAS FASTINGPERFORMED BY: LabCoEast Orange VA Medical CenterTjukcj0196 [facility] [id number] TSH 0.891 {uIU/mL} (Normal) Range: 0.450-4.500 29-Jpv-751273:10 LIPID PANEL (99686) Comments: PATIENT WAS FASTINGPERFORMED BY: LabCoEast Orange VA Medical CenterNbhqcu8940 [facility] [id number] LDL/HDL Ratio 2.0 {ratio_units} Range: 0.0-3.2 (Normal) [...] ASPIRATION (SLIDES ONLY) See Note (Normal) Comments: [facility] Nfmvyvrprx4508 [place], [address] :50 Comments: Patient: AMY VALDOVINOS : 1965 (50/F) Acct Num: [id number] Phys: Devorah DÍAZ,Richar Unit Num: [id number] Loc: LABSPEC Specimen: [id number] Received: 12/15/15 - [...] Signed Alexis Levi 12/16/15 <signature on file> 48-Cti-151515:19 TSH (12397) Comments: PATIENT NOT FASTINGPERFORMED BY: LabStraith Hospital For Special Surgery6370 [facility] [id number] TSH 1.250 {uIU/mL} (Normal) Range: 0.450-4.500 :19 T4, FREE (THYROXINE) Comments: PATIENT NOT FASTINGPERFORMED BY: [place] 4712270 [facility] [id number] Information: [id number] (64509) T4,Free(Direct) 1.12 ng/dL (Normal) Range: 0.82-1.77 :19 T3, FREE (TRIDOTHYRONINE) (16144) Comments: PATIENT NOT FASTINGPERFORMED BY: LabStraith Hospital For [facility] Surgery6370 [facility] [id number] Triiodothyronine,Free,Serum 3.3 pg/mL (Normal) Range: 2.0-4.4 83-Atx-170313:15 SED RATE ERYTHROCYTE (31369) Comments: PATIENT NOT FASTINGPERFORMED BY: [facility]6370 [facility] [id number] Sedimentation Rate-Westergren 6 mm/h (Normal) Range: 0-40 18-Tns-785652:15 C-REACTIVE PROTEIN (71262) Comments: PATIENT NOT FASTINGPERFORMED BY: LabStraith [facility] Surgery6370 [facility] [id number] C-Reactive Protein, Quant 3.9 mg/L (Normal) Range: 0.0-4.9 24-Vfr-810721:15 METABOLIC PANEL, COMPREHENSIVE Comments: PATIENT NOT FASTINGPERFORMED BY: [facility] [facility] [id number] ([id number]) ALT (SGPT) 35 [iU]/L (Abnormal) Range: 0-32 [...] Glucose, Serum 76 mg/dL (Normal) Range: 65-99 03-Dee-917768:15 EBV Panel ([id number]) Comments: PATIENT NOT FASTINGPERFORMED BY: [facility] Lvxxqq4643 [facility] [id number] Interpretation: SPRCS (Normal) Comments: EBV Interpretation Chart [...] <36.0 Equivocal 36.0 - 43.9 Positive >43.9 98-Lvn-690737:15 CBC, PLATELETS & MANUAL Comments: PATIENT NOT FASTINGPERFORMED BY: [facility]CoEast [facility] CenterPxmdtr7085 [facility] [id number] Information: [id number] DIFF (73436) Immature Grans (Abs) 0.0 {x10E3/uL} (Normal) Range: [...] 3.77-5.28 WBC 8.8 {x10E3/uL} (Normal) Range: 3.4-10.8 12-Fqz-179992:00 CBC with auto diff Comments: PERFORMED BY: ApokalyyisEast Orange VA Medical CenterElemxs9444 [facility] [id number] Information: NURSE DRAW (53528) Immature Grans (Abs) 0.0 {x10E3/uL} (Normal) Range: [...] 3.77-5.28 WBC 8.6 {x10E3/uL} (Normal) Range: 3.4-10.8 51-Ebo-389413:00 METABOLIC PANEL, COMPREHENSIVE Comments: PERFORMED BY: ApokalyyisEast [facility] Medical CenterXszfuj6329 [facility] [id number] (51394) ALT (SGPT) 19 [iU]/L (Normal) Range: 0-32 [...] Glucose, Serum 93 mg/dL (Normal) Range: 65-99 39-Bjo-831620:00 ZMBVI-NKVSYFFXBQM-BIMCR (43645) Comments: PERFORMED BY: [employer] Gkwwre0347 [facility] [id number] AFP, Serum, Tumor Marker 3.2 ng/mL (Normal) Range: 0.0-8.3 Comments: Ozzie ECLIA methodology 84-Acb-029562:28 HgA1C , Office (37220) HgA1C , Office 5.9 % (Normal) Range: 4.6 - 7.1 1-Hmb-363436:22 URINE KENROY CULTURE-JUAN COL Comments: PATIENT NOT FASTINGPERFORMED BY: Apokalyyis[address] [id number] Information: SRC:URC [id number] COUNT (88317) Result 1 NG36 (Normal) Comments: No growth in 36 - 48 hours. Urine Culture,Comprehensive Final report (Normal) 7-Kbi-097622:36 Urinalysis, Office (86222) UA - LEUKOCYTE ESTERASE Small (Normal) UA - NITRITE Negative (Normal) URINE UROBILINGN JUAN TIMED Normal mg/dL (Normal) UA - PROTEIN Negative mg/dL (Normal) UA - PH 6.5 (Normal) UA - BLOOD Negative (Normal) UA - SPECIFIC GRAVITY 1.005 (Normal) UA - KETONES Negative mg/dL (Normal) UA - BILIRUBIN Negative (Normal) UA - GLUCOSE Negative (Normal) 21-Wdg-881926:04 CBC W/AUTO DIFF WBC Comments: PATIENT WAS FASTINGPERFORMED BY: [facility]Co[facility] CenterNtkfow9377 [facility] [id number] Information: [id number] (78704) Immature Grans (Abs) 0.0 {x10E3/uL} (Normal) Range: [...] PANEL, COMPREHENSIVE Comments: PATIENT WAS FASTINGPERFORMED BY: Apokalyyis Xtbjoy6600 [facility] [id number] (06132) ALT (SGPT) 20 [iU]/L (Normal) Range: 0-32 [...] Glucose, Serum 74 mg/dL (Normal) Range: 65-99 32-Aub-953944:04 LIPID PANEL (53471) Comments: PATIENT WAS FASTINGPERFORMED BY: ApokalyyisUNM Sandoval Regional Medical CenterHqegln8896 [facility] [id number]; apt. 9-25-15 LDL/HDL Ratio 2.1 {ratio_units} Range: [...] ng/mL (Normal) Comments: PATIENT WAS FASTINGPERFORMED BY: [employer] Vsjzbi1176 [facility] [id number] 59:38 Marker Range: 0.0-8.3 Comments: Ozzie ECLIA methodology 00-Mqg-88379:38 CBC With Differential/Platelet Comments: PATIENT WAS FASTINGPERFORMED BY: [employer] Offqpi2131 [facility] [id number] Information: [id number] Immature Grans (Abs) 0.0 {x10E3/uL} (Normal) Range: [...] Panel (14) Comments: PATIENT WAS FASTINGPERFORMED BY: [facility]Co[facility] CenterXkobfo0305 [facility] [id number] ALT (SGPT) 13 [iU]/L (Normal) Range: 0-32 [...] % (Abnormal) Comments: PATIENT WAS FASTINGPERFORMED BY: [employer] [facility] [id number]; f/u on 02/06 38 Range: 4.8-5.6 Comments: . Increased risk for diabetes: 5.7 - 6.4 Diabetes: >6.4 Glycemic control for adults with diabetes: <7.0 :38 Lipid Panel With LDL/HDL Comments: PATIENT WAS FASTINGPERFORMED BY: [employer] [facility] [id number] Ratio LDL/HDL Ratio 3.1 {ratio_units} (Normal) Range: [...] Randm Ur Comments: PATIENT WAS FASTINGPERFORMED BY: PeerJ6370 [facility] [id number] Microalb/Creat Ratio 19.0 {mg/g_creat} Range: 0.0-30.0 (Normal) Microalbumin, Urine 23.5 ug/mL (Abnormal) Range: 0.0-17.0 Creatinine, Urine 124.0 mg/dL (Normal) Range: 15.0-278.0 05-Feb-2015 Vitamin D, 25-Hydroxy 32.7 ng/mL (Normal) Comments: PATIENT WAS FASTINGPERFORMED BY: Cooptions Technologieslin6370 Nola Cuellar [place] [id number] 9:38 Range: 30.0-100.0 Comments: Vitamin D deficiency has been defined by the [place] ofMedicine and an Endocrine Society practice guideline as alevel of serum 25-OH vitamin D less than 20 ng/mL (1,2).The Endocrine Society went on to further define vitamin Dinsufficiency as a level between 21 and 29 ng/mL (2).1. IOM ([place] of Medicine). 2010. Dietary reference intakes for calcium and D. [place]: The National Academies Press.2. Myla MF, Javier NC, Panfilo MANN, et al. Evaluation, treatment, and prevention of vitamin D deficiency: an Endocrine Society clinical practice guideline. JCEM. 2010; 96(7):1911-30. 05-Mar-878612:49 Comprehensive Metabolic Profil Comments: STAT CREATININE FOR MRITest performed at:[facility] Njccxenbzz24[address] [place] [address] ; Darrick GAP 3 (Abnormal) Range: 5-15 [...] 7-18 GLU 82 mg/dL (Normal) Range: 70-110 30-Guh-117414:49 Hemoglobin A1c Comments: Test performed at:[facility] Duklagfydm9739 [facility] [place] [address] HGB A1C 5.7 % (Normal) Range: 4.2-6.3 32-Xap-836675:49 Lipid Profile Comments: STAT CREATININE FOR MRITest performed at:[facility] [address] [place] [address] VLDL 25 mg/dL (Normal) Range: [...] 200-240 mg/dL Borderline >240 mg/dL High Risk 98-Brs-714901:49 Vitamin D,25 Hydroxy Comments: Test performed at:[facility] Wfnntvhyux[address] [place] [address] Vitamin D 25-OH 76.3 ng/mL (Normal) Comments: Vitamin D 25(OH) Status Range Deficiency <20 ng/mL (50nmol/L) Insuffciency 20 - 30 ng/mL (50 - 75 nmol/L) Sufficiency 30 - 100 ng/mL (75 - 250 nmol/L) Toxicity >100 ng/mL (>250 nmol/L) 5-Fml-322980:15 Culture, Urine Comments: Test performed at:[facility] [address] [place] [address] CUUR See Note (Normal) Comments: Urine CultureORGANISM 1: Mixed Gram Positive OrganismsColony Count 11,000-25,000MIX CONTAM Mixed Contaminants. Submit new specimen if indicated. 5-Dvk-127308:23 Lipid Panel (99504) Comments: PATIENT WAS FASTINGPERFORMED BY: ApokalyyisEast Orange VA Medical CenterJhtlib7121 [facility] [id number] LDL/HDL Ratio 2.9 {ratio_units} (Normal) Range: 0.0-3.2 [...] Cholesterol, Total 164 mg/dL (Normal) Range: 100-199 5-Vcw-818799:23 Metabolic Panel, Comments: PATIENT WAS FASTINGPERFORMED BY: [employer] Pkeicv8015 [facility] [id number] Information: [id number] Comprehensive (56814) ALT (SGPT) 24 [iU]/L (Normal) Range: 0-32 [...] Glucose, Serum 94 mg/dL (Normal) Range: 65-99 26-Cgv-682093:49 CALCIFEDIOL (37193) Comments: PATIENT NOT FASTINGPERFORMED BY: [facility]CoEast [facility] CenterRjwril8283 [facility] [id number] Vitamin D, 25-Hydroxy 18.9 ng/mL (Abnormal) Range: 30.0-100.0 Comments: Vitamin D deficiency has been defined by the [place] of[facility]cine and an Endocrine Society practice guideline as alevel of serum 25-OH vitamin D less than 20 ng/mL (1,2).The Endocrine Society went on to further define vitamin Dinsufficiency as a level between 21 and 29 ng/mL (2).1. IOM ([place] of Medicine). 2010. Dietary reference intakes for calcium and D. [place]: The National Academies Press.2. Myla MF, Javier STUART, Panfilo MANN, et al. Evaluation, treatment, and prevention of vitamin D deficiency: an Endocrine Society clinical practice guideline. JCEM. 2010; 96(7):1911-30. 24-Xfu-987488:52 Hemoglobin A1c Comments: Test performed at:[facility] [address] [facility] [address] HGB A1C 6.4 % (Abnormal) Range: 4.2-6.3 45-Cme-382439:52 Lipid Profile Comments: Test performed at:[facility] Rhgirlnhaq79[address] [facility] [place] [address] VLDL 35 mg/dL (Normal) Range: 5-40 LDL [...] 200-240 mg/dL Borderline >240 mg/dL High Risk 69-Drj-187745:52 Liver Profile Comments: Test performed at:[facility] [address] [place] [address] D BILI 0.10 mg/dL (Normal) Range: 0.00-0.30 T BILI 0.50 mg/dL (Normal) Range: 0.00-4.00 ALT 43 U/L (Normal) Range: 12-78 ALK P 92 U/L (Normal) Range: 50-136 AST 18 U/L (Normal) Range: 15-37 GLOB 3.5 g/dL (Normal) Range: 2.7-4.2 ALB 4.0 g/dL (Normal) Range: 3.4-5.0 T PROT 7.5 g/dL (Normal) Range: 6.4-8.2 37-Wpp-523092:50 Serum Creatinine AND GFR Comments: Has pt arrived? YTest performed at:[facility] [address] [place] [address] EST GFR - AA 86 mL/min (Normal) EST GFR 71 mL/min (Normal) CREAT,SERUM 0.9 mg/dL (Normal) Range: 0.6-1.0 76-Msv-904855:38 Hepatic Function Panel Comments: PATIENT WAS FASTINGPERFORMED BY: [facility]CoEast [facility] CenterBpskoa1596 [facility] [id number] Information: [id number] (7) ALT (SGPT) 36 [iU]/L (Abnormal) Range: 0-32 AST (SGOT) 23 [iU]/L (Normal) Range: 0-40 Alkaline Phosphatase, S 107 [iU]/L (Normal) Range: 39-117 Bilirubin, Direct 0.13 mg/dL (Normal) Range: 0.00-0.40 Bilirubin, Total 0.3 mg/dL (Normal) Range: 0.0-1.2 Albumin, Serum 4.7 g/dL (Normal) Range: 3.5-5.5 Protein, Total, Serum 7.3 g/dL (Normal) Range: 6.0-8.5 01-Jul-2014 Written Authorization WAR (Normal) Comments: PATIENT WAS FASTINGPERFORMED BY: [facility] Ytautk0734 [facility] [id number] 13:38 Comments: Written Authorization Received.Authorization received from GEORGE OSCAR LPN [id number] by Sandrita Onofre 42-Ris-252252:38 CALCIFEDIOL (14373) Comments: PATIENT WAS FASTINGPERFORMED BY: [facility] Cqwxno9365 [facility] [id number] Vitamin D, 25-Hydroxy 30.1 ng/mL (Normal) Range: 30.0-100.0 Comments: Vitamin D deficiency has been defined by the [place] ofMedicine and an Endocrine Society practice guideline as alevel of serum 25-OH vitamin D less than 20 ng/mL (1,2).The Endocrine Society went on to further define vitamin Dinsufficiency as a level between 21 and 29 ng/mL (2).1. IOM ([place] of Medicine). 2010. Dietary reference intakes for calcium and D. [place]: The National Academies Press.2. Myla MF, Javier [place], Panfilo MANN, et al. Evaluation, treatment, and prevention of vitamin D deficiency: an Endocrine Society clinical practice guideline. JCEM. 2010; 96(7):1911-30. 04-Typ-026787:38 LIPID PANEL (85601) Comments: PATIENT WAS FASTINGPERFORMED BY: [facility] Ynjqcj2071 [facility] [id number] Information: [id number] LDL/HDL Ratio 4.2 {ratio_units} (Abnormal) Range: 0.0-3.2 [...] FUNCTION PANEL Comments: PATIENT NOT FASTINGPERFORMED BY: [place] 4712270 [facility] [id number] Information: [id number] (65912) ALT (SGPT) 193 [iU]/L (Abnormal) Range: 0-32 AST (SGOT) 43 [iU]/L (Abnormal) Range: 0-40 Alkaline Phosphatase, S 135 [iU]/L (Abnormal) Range: 39-117 Bilirubin, Direct 0.18 mg/dL (Normal) Range: 0.00-0.40 Bilirubin, Total 0.3 mg/dL (Normal) Range: 0.0-1.2 Albumin, Serum 4.1 g/dL (Normal) Range: 3.5-5.5 Protein, Total, Serum 6.7 g/dL (Normal) Range: 6.0-8.5 :49 HEPATITIS PANEL (08932) Comments: PATIENT NOT FASTINGPERFORMED BY: [facility]6370 [facility] [id number] Hep C Virus Ab <0.1 {s/co_ratio} (Normal) Range: 0.0-0.9 Comments: Negative: < 0.8 Indeterminate: 0.8 - 0.9 Positive: > 0.9 . In order to reduce the incidence of a false positive result, the CDC recommends that all s/co ratios between 1.0 and 10.9 be confirmed by a more specific supplemental or PCR testing. [facility] offers HCV Ab w/Reflex to Verification test #190069. Hep B Core Ab, IgM Negative (Normal) HBsAg Screen Negative (Normal) Hep A Ab, IgM Negative (Normal) 49-Pan-841717:49 ANTIMITOCHONDRIAL ANTIBODY Comments: PATIENT NOT FASTINGPERFORMED BY: LettuceThinnerrp Cdghlm9029 [facility] [id number] (74951) Atypical pANCA <1:20 {titer} (Normal) Comments: The [...] follow up testing ofpositive sera with both MT-3 and MPO- ANCA enzyme immunoassays. Asmany as 5% serum samp les are positive only by EIA.Ref. AM J Clin Pathol 1999;111:507-513. Cytoplasmic (C-ANCA) <1:20 {titer} (Normal) 65-Guj-131011:49 TRANSFERRIN (12339) Comments: PATIENT NOT FASTINGPERFORMED BY: LettuceThinnerrp Nofcnz3305 [facility] [id number] Transferrin 259 mg/dL (Normal) Range: 200-370 73-Zar-229527:49 GGT (GAMMA GLUTAMYLTRANSFERASE) Comments: PATIENT NOT FASTINGPERFORMED BY: [employer] Gbmkpo1412 [facility] [id number] (87085) GGT 385 [iU]/L (Abnormal) Range: 0-60 43-Zex-554567:49 FERRITIN (17444) Comments: PATIENT NOT FASTINGPERFORMED BY: [facility]ple [facility] Aiygza3558 [facility] [id number] Ferritin, Serum 447 ng/mL (Abnormal) Range: 15-150 91-Qxv-373416:49 CMV IGM ANTBDY (55394) Comments: PATIENT NOT FASTINGPERFORMED BY: [facility] Ygmhis4816 [facility] [id number] Cytomegalovirus (CMV) Ab, IgM <30.0 AU/mL (Normal) Range: 0.0-29.9 Comments: Negative <30.0 Equivocal 30.0 - 34.9 Positive >34.9 A positive result is generally indicative of acute infection, reactivation or persistent IgM production. 09-Xfv-111538:49 CERULOPLASMIN (59351) Comments: PATIENT NOT FASTINGPERFORMED BY: ContractRoomKelly Ville 7415070 [facility] [id number] Ceruloplasmin 29.9 mg/dL (Normal) Range: 16.0-45.0 72-Eho-659058:49 ASM (ANTI SMOOTH MUSCLE Comments: PATIENT NOT FASTINGPERFORMED BY: [address] [id number] ANTIBODY) (52499) Actin (Smooth Muscle) Antibody 5 {Units} (Normal) Range: 0-19 Comments: Negative 0 - 19 Weak positive 20 - 30 Moderate to strong positive >30 . Actin Antibodies are found in 52-85% of patients with autoimmune hepatitis or chronic active hepatitis and in 22% of patients with primary biliary cirrhosis. 03-Ltl-997846:49 ANTI-LIVER/KIDNEY MICROSOMAL Comments: PATIENT NOT FASTINGPERFORMED BY: ContractRoomKelly [place] 7415070 [facility] [id number] ANTIBODY (28690) Thyroid Peroxidase (TPO) Ab 9 {IU/mL} (Normal) Range: 0-34 00-Apk-426624:49 LOLITA (ANTINUCLEAR ANTIBODY) Comments: PATIENT NOT FASTINGPERFORMED BY: ContractRoom[address] [id number] (78936) LOLITA Direct Negative (Normal) 37-Dfi-688683:49 TSH (28737) Comments: PATIENT NOT FASTINGPERFORMED BY: ContractRoom[address] [id number] TSH 1.520 {uIU/mL} (Normal) Range: 0.450-4.500 91-Dkh-808120:49 T4, FREE (THYROXINE) (27356) Comments: PATIENT NOT FASTINGPERFORMED BY: [address] [id number] T4,Free(Direct) 0.97 ng/dL (Normal) Range: 0.82-1.77 44-Bpp-351570:49 T3, FREE (TRIDOTHYRONINE) (50406) Comments: PATIENT NOT FASTINGPERFORMED BY: CB [facility] Vatboc4305 [address] RoadDublin [place] [id number] Triiodothyronine,Free,Serum 3.2 pg/mL (Normal) Range: 2.0-4.4 22-Zep-181989:23 Throat Culture (68136) Comments: PATIENT NOT FASTINGPERFORMED BY: CB [facility] Lsayod1938 [facility] Hospitalbl[facility] [place] [id number] Information: SRC:THRT [id number] Result 1 RRF (Normal) Comments: Routine respiratory edith Upper Respiratory Culture Final report (Normal) :36 Rapid Strep Test, Office (14298) Rapid Strep Test, Office Negative (Normal) :38 CALCIFEDIOL (26404) Comments: PATIENT WAS FASTINGPERFORMED BY: CB [facility] Bjyedq0568 [address] [facility] HospitalDublin [place] [id number] Vitamin D, 25-Hydroxy 16.2 ng/mL (Abnormal) Range: 30.0-100.0 Comments: Vitamin D deficiency has been defined by the [place] ofMedicine and an Endocrine Society practice guideline as alevel of serum 25-OH vitamin D less than 20 ng/mL (1,2).The Endocrine Society went on to further define vitamin Dinsufficiency as a level between 21 and 29 ng/mL (2).1. IOM ([place] of Medicine). 2010. Dietary reference intakes for calcium and D. [place]: The National Academies Press.2. Myla MF, Javier NC, Panfilo MANN, et al. Evaluation, treatment, and prevention of vitamin D deficiency: an Endocrine Society clinical practice guideline. JCEM. 2010; 96(7):1911-30. :38 Lipid Panel (68774) Comments: PATIENT WAS FASTINGPERFORMED BY: CB [facility] Rnedqj5568 [facility] Hospitalbl[facility] [place] [id number] Information: [id number] LDL/HDL Ratio 3.8 {ratio_units} (Abnormal) Range: 0.0-3.2 [...] FUNCTION PANEL Comments: PATIENT WAS FASTINGPERFORMED BY: [employer]70 [facility] [id number] (64838) ALT (SGPT) 446 [iU]/L (Abnormal) Range: 0-32 AST (SGOT) 119 [iU]/L (Abnormal) Range: 0-40 Alkaline Phosphatase, S 176 [iU]/L (Abnormal) Range: 39-117 Bilirubin, Direct 0.59 mg/dL (Abnormal) Range: 0.00-0.40 Bilirubin, Total 1.2 mg/dL (Normal) Range: 0.0-1.2 Albumin, Serum 4.2 g/dL (Normal) Range: 3.5-5.5 Protein, Total, Serum 7.0 g/dL (Normal) Range: 6.0-8.5 :24 Metabolic Panel, Comprehensive Comments: PATIENT NOT FASTINGPERFORMED BY: [employer]70 [facility] [id number] (42987) ALT (SGPT) 40 [iU]/L (Abnormal) Range: 0-32 [...] Glucose, Serum 108 mg/dL (Abnormal) Range: 65-99 19-Gtw-071347:24 CBC, Platelets & Auto Comments: PATIENT NOT FASTINGPERFORMED BY: [facility] Qkoykm5568 [facility] [id number] Information: [id number] Diff (95722) Immature Grans (Abs) 0.0 {x10E3/uL} (Normal) Range: [...] 3.77-5.28 WBC 10.1 {x10E3/uL} (Normal) Range: 3.4-10.8 35-Vdp-283866:09 URINE KENROY CULTURE-IDENTIFICATN Comments: PATIENT NOT FASTINGPERFORMED BY: LettuceThinner Devario [facility] [id number] Information: [id number] (27228) Result 1 MUG (Normal) Comments: Mixed urogenital flora1,000 Colonies/mL Urine Culture,Comprehensive Final report (Normal) 76-Sce-407088:21 Urinalysis, Office (88925) UA - LEUKOCYTE ESTERASE Trace (Normal) UA - NITRITE Negative (Normal) URINE UROBILINGN JUAN TIMED Normal mg/dL (Normal) UA - PROTEIN Negative mg/dL (Normal) UA - PH 6 (Abnormal) UA - BLOOD Negative (Normal) UA - SPECIFIC GRAVITY 1.025 (Normal) UA - KETONES Negative mg/dL (Normal) UA - BILIRUBIN Negative (Normal) UA - GLUCOSE Negative (Normal) 01-Rkx-677012:39 HEPATITIS B SURFACE ANTIBODY Comments: PATIENT NOT FASTINGPERFORMED BY: LettuceThinner Devario [facility] [id number] (90341) Hep B Surface Ab, Qual Non Reactive (Normal) Comments: Non Reactive: Inconsistent with immunity, less than 10 mIU/mL Reactive: Consistent with immunity, greater than 9.9 mIU/mL 64-Fds-715816:39 HEPATITIS PANEL (25216) Comments: PATIENT NOT FASTINGPERFORMED BY: LettuceThinner Devario [facility] [id number] Information: [id number] Hep C Virus Ab 0.2 {s/co_ratio} (Normal) Range: 0.0-0.9 Comments: Negative: < 0.8 Indeterminate 0.8 - 0.9 Positive: > 0.9 . In order to reduce the incidence of a false positive result, the [facility] recommends that all s/co ratios between 1.0 and 10.9 be confirmed by a more specific supplemental or PCR testing. [facility] offers HCV Ab w/Reflex to Verification test #[id number]. Hep B Core Ab, IgM Negative (Normal) HBsAg Screen Negative (Normal) Hep A Ab, IgM Negative (Normal) 44-Fvr-937796:39 HDXTO-DAWBKGZBTVO-ILCEF (17292) Comments: PATIENT NOT FASTINGPERFORMED BY: [facility]6370 [facility] [id number] AFP, Serum, Tumor Marker 2.8 ng/mL (Normal) Range: 0.0-8.3 Comments: Ozzie ECLIA methodology 9-Gbc-662807:59 CBC, Platelets & Auto Diff Comments: PATIENT NOT FASTINGPERFORMED BY: [facility]6370 [facility] [id number] Information: [id number] (29914) Immature Grans (Abs) 0.0 {x10E3/uL} (Normal) Range: [...] 3.77-5.28 WBC 10.1 {x10E3/uL} (Normal) Range: 3.4-10.8 3-Ome-231261:59 Metabolic Panel, Comprehensive Comments: PATIENT NOT FASTINGPERFORMED BY: [facility]Co[facility] CenterDdlvuh2897 [facility] [id number] (94436) ALT (SGPT) 27 [iU]/L (Normal) Range: 0-32 [...] Glucose, Serum 125 mg/dL (Abnormal) Range: 65-99 7-Yex-839593:08 Urinalysis, Office (84590) UA - LEUKOCYTE ESTERASE Moderate (Normal) UA - NITRITE Positive (Normal) URINE UROBILINGN JUAN TIMED Normal mg/dL (Normal) UA - PROTEIN Negative mg/dL (Normal) UA - PH 6 (Abnormal) UA - BLOOD non-hemolyzed trace (Normal) UA - SPECIFIC GRAVITY 1.020 (Normal) UA - KETONES Negative mg/dL (Normal) UA - BILIRUBIN Negative (Normal) UA - GLUCOSE Negative (Normal) 55-Jye-388372:41 Urinalysis, Office (65026) UA - BILIRUBIN Negative (Normal) UA - BLOOD Negative (Normal) UA - GLUCOSE Negative (Normal) UA - KETONES Negative mg/dL (Normal) UA - LEUKOCYTE ESTERASE Negative (Normal) UA - NITRITE Negative (Normal) UA - PH 7.0 (Normal) UA - PROTEIN Negative mg/dL (Normal) UA - SPECIFIC GRAVITY 1.020 (Normal) URINE UROBILINGN JUAN TIMED Normal mg/dL (Normal) 00-Qbg-01698:34 KENROY CULTURE-OTHER (13774) Comments: PATIENT NOT FASTINGPERFORMED BY: [facility]dAt[facility] [id number] Information: SRC: THROAT Result 1 RRF (Normal) Comments: Routine respiratory edith Upper Respiratory Culture Final report (Normal) 69-Uai-308770:20 UCBZI-MLQEKQUNKEO-THPSB (92867) Comments: PATIENT NOT FASTINGPERFORMED BY: sageCrowdAlphaNation [place] [id number] AFP, Serum, Tumor Marker 2.6 ng/mL (Normal) Range: 0.0-8.3 Comments: Ozzie ECLIA methodology 76-Vqn-699689:20 PTT (Activated Partial Comments: PATIENT NOT FASTINGPERFORMED BY: [facility]CrowdAt[facility] [id number] Thromboplastin Time) (37038) aPTT 31 {sec} (Normal) Range: 24-33 Comments: This test has not been validated for monitoring unfractionated heparintherapy. aPTT-based therapeutic ranges for unfractionated heparintherapy have not been established. For general guidelines onHeparin monitoring, refer to the [facility] Directory of Services. 93-Gms-549652:20 PT (Prothrobim Time) (50324) Comments: PATIENT NOT FASTINGPERFORMED BY: [facility]6370 [facility] [id number] INR 1.0 (Normal) Range: 0.8-1.2 Comments: Reference interval is for non-anticoagulated patients. . Suggested INR therapeutic range for Vitamin K anta gonist therapy: Standard Dose (moderate intensity therapeutic range): 2.0 - 3.0 Higher intensity therapeutic range 2.5 - 3.5 Prothrombin Time 10.3 {sec} (Normal) Range: 9.1-12.0 49-Xma-397893:20 CBC WITH MANUAL DIFF Comments: PATIENT NOT FASTINGPERFORMED BY: [facility] Centerlin6370 [facility] [id number] Information: [id number] (67324) Immature Grans (Abs) 0.0 {x10E3/uL} (Normal) Range: [...] 3.77-5.28 WBC 12.1 {x10E3/uL} (Abnormal) Range: 4.0-10.5 72-Apd-861907:49 GALLBLADDER Radiology Report See Note (Normal) Comments: [...] size of the right kidney. The right utshuetnvaxmrj62.8 cm. Normal renal cortex. The right cortex measures 1.1 cm. Thereisno demonstrated renal mass or cyst. There is no right hydronephrosis. IMPRESSION:Solitary gallstone.Fatty infiltration of the liver. Signed:Jono Dumont M.D.October 11, 2012 at 2:01:18 PM [id number] Signed GP/GP If you are the referring physician and would like to consult with theradiologist who provided this interpretation, please contact Simone Espino at [phone]. If this radiologist is unavailable, youwi ll [...] 10/11/12 1406 Sign by: Jono Dumont MD 74-Sme-131244:14 C-REACTIVE PROTEIN (70081) Comments: PATIENT NOT FASTINGPERFORMED BY: LettuceThinnerrp Swvkjd4691 [facility] [id number] C-Reactive Protein, Quant 11.5 mg/L (Abnormal) Range: 0.0-4.9 67-Gdu-605043:14 SED RATE ERYTHROCYTE (99931) Comments: PATIENT NOT FASTINGPERFORMED BY: PeerJ6370 [facility] [facility] [id number] Sedimentation Rate-Westergren 7 mm/h (Normal) Range: 0-32 12-Sjv-865403:14 CBC WITH MANUAL DIFF Comments: PATIENT NOT FASTINGPERFORMED BY: LettuceThinner Jehsrp9990 [facility] [id number] Information: [id number] ([id number]) Immature Grans (Abs) 0.0 {x10E3/uL} (Normal) Range: [...] 3.77-5.28 WBC 13.1 {x10E3/uL} (Abnormal) Range: 4.0-10.5 98-Axa-750068:14 METABOLIC PANEL, COMPREHENSIVE Comments: PATIENT NOT FASTINGPERFORMED BY: [facility] Igtavk7281 [facility] [id number] (97805) ALT (SGPT) 25 [iU]/L (Normal) Range: 0-32 [...] mg/dL (Abnormal) Range: 65-99 21-Sep-20129:52 Rapid Flu (27152 x 2) Influenza A Ag pos a (Normal) 2-Tio-193622:01 Influenza A&B Viral Comments: PATIENT NOT FASTINGPERFORMED BY: ApokalyyisEast Orange VA Medical CenterZhuvbb[address] [place] [address] [id number] Information: SRC:NOS [id number] Culture (51239) Viral Culture,Rapid,Influenza PFLUA (Abnormal) Comments: PositiveInfluenza A detected.. :40 LIPID PANEL (34401) Comments: PATIENT WAS FASTINGPERFORMED BY: ContractRoomKelly [place] [id number] [facility] [id number] LDL/HDL Ratio 3.0 {ratio_units} (Normal) Range: 0.0-3.2 LDL Cholesterol Calc 103 mg/dL (Abnormal) Range: 0-99 VLDL Cholesterol Kirby 33 mg/dL (Normal) Range: 5-40 Cholesterol, Total 170 mg/dL (Normal) Range: 100-199 HDL Cholesterol 34 mg/dL (Abnormal) Comments: According to ATP-III Guidelines, HDL-C >59 mg/dL is considered anegative risk factor for CHD. Triglycerides 163 mg/dL (Abnormal) Range: 0-149 3-Nri-040873:40 METABOLIC PANEL, Comments: PATIENT WAS FASTINGPERFORMED BY: [facility] Cxcsvg4167 [facility] [id number] Information: [id number] COMPREHENSIVE (43421) ALT (SGPT) 29 [iU]/L (Normal) Range: 0-32 [...] Glucose, Serum 87 mg/dL (Normal) Range: 65-99 17-Lqp-15186:35 KENROY CULTURE-OTHER (47215) Comments: PATIENT NOT FASTINGPERFORMED BY: [facility]Stra[facility] Surgery6370 [facility] [id number] Information: SRC:GREG [id number] Result 1 RRF (Normal) Comments: Routine respiratory edith Upper Respiratory Culture Final report (Normal) 08-Wpr-13565:21 Rapid Strep Test, Office (79638) Rapid Strep Test, Office Negative (Normal) 9-Ixy-818294:10 CBC With Differential/Platelet Comments: PATIENT WAS FASTINGPERFORMED BY: LabCoEast Orange VA Medical CenterMfnocx3841 [facility] [id number] Immature Grans (Abs) 0.0 {x10E3/uL} (Normal) Range: [...] Panel (14) Comments: PATIENT WAS FASTINGPERFORMED BY: Apokalyyis Xidhhc5850 [facility] [id number] ALT (SGPT) 22 [iU]/L (Normal) Range: 0-40 [...] % (Abnormal) Comments: PATIENT WAS FASTINGPERFORMED BY: ApokalyyisEast Orange VA Medical CenterDmppxe9108 [facility] [id number] :10 Range: 4.8-5.6 Comments: . Increased risk for diabetes: 5.7 - 6.4 Diabetes: >6.4 Glycemic control for adults with diabetes: <7.0 8-Zls-409883:10 Lipid Panel With LDL/HDL Comments: PATIENT WAS FASTINGPERFORMED BY: CHUY [facility]6370 [facility] [id number] Ratio LDL/HDL Ratio 4.3 {ratio_units} (Abnormal) Range: 0.0-3.2 LDL Cholesterol Calc 154 mg/dL (Abnormal) Range: 0-99 VLDL Cholesterol Kirby 23 mg/dL (Normal) Range: 5-40 HDL Cholesterol 36 mg/dL (Abnormal) Comments: According to ATP-III Guidelines, HDL-C >59 mg/dL is considered anegative risk factor for CHD. Triglycerides 115 mg/dL (Normal) Range: 0-149 Cholesterol, Total 213 mg/dL (Abnormal) Range: 100-199 4-Rzb-513016:10 Microalb/Creat Ratio, Rand Ur Comments: PATIENT WAS FASTINGPERFORMED BY: CHUY [address] [id number] Microalb/Creat Ratio 6.3 {mg/g_creat} (Normal) Range: 0.0-30.0 Creatinine, Urine 30.4 mg/dL (Normal) Range: 15.0-278.0 Microalbumin, Urine 1.9 ug/mL (Normal) Range: 0.0-17.0 8-Vbp-049802:10 Microscopic Examination Comments: PATIENT WAS FASTINGPERFORMED BY: CHUY [place] [id number] [facility] [id number] Bacteria Few (Normal) Mucus Threads Present (Normal) Epithelial Cells (non 0-10 {/hpf} Range: 0 - 10 renal) (Normal) RBC None seen {/hpf} Range: 0 - 3 (Normal) WBC 0-5 {/hpf} (Normal) Range: 0 - 5 TSH 2.190 {uIU/mL} Comments: PATIENT WAS FASTINGPERFORMED BY: CHUY [place] 8453270 [facility] [id number] :10 (Normal) Range: 0.450-4.500 5-Ebl-534463:10 Urinalysis, Complete Comments: PATIENT WAS FASTINGPERFORMED BY: [address] [place] [id number] Microscopic Examination See below: (Normal) Microscopic Examination MICRON (Normal) Comments: Microscopic follows if indicated. Nitrite, Urine Negative (Normal) Urobilinogen,Semi-Qn 0.2 mg/dL (Normal) Range: 0.0-1.9 Bilirubin Negative (Normal) Occult Blood Negative (Normal) Ketones Negative (Normal) Glucose Negative (Normal) Protein Negative (Normal) WBC Esterase Negative (Normal) Appearance Clear (Normal) Urine-Color Yellow (Normal) pH 7.5 (Normal) Range: 5.0-7.5 Specific [place] 1.008 (Normal) Range: 1.005-1.030 8-Jyy-205832:53 CHEST, PA AND LATERAL Radiology Report See [...] shah M.D.May 28, 2012 at 3:41:15 PM [id number] Signed GP/GP If you are the referring physician and would like to consult with theradiologist who provided this interpretation, please contact Simone Espino at [phone]. If this radiologist is unavailable, youwill be directed to another radiologist to assist. If you are a patient with a question regarding this report, pl easecontactyour referring physician directly. Professional Interpretation Provided By: alphacityguides, Phone , These documents contain legally protected and confidential healt hinformation intended only for the use of the individual or entity namedabove. If you are not the intended recipient, you are hereby notifiedthatany disclosure, copying, distribution, or other use of [facility] documents isstrictly prohibited. If you [...] Marquez M.D.May 26, 2012 at 9:02:07 PM [phone] Signed AM/AM If you are the referring physician and would like to consult with theradiologist who provided this i nterpretation, please contact Joanne Marquez M.D. at . If this radiologist is unavailable, you will bedirected to another radiologist to assist. If you are a patient with a question regarding this report, pleasecontactyour referring physician directly. Professional Interpretation Provided By: alphacityguides, Phone , These documents contain legally protected [...] partial nephrectomy H/O partial nephrectomy : Reviewed Ticker Wirer Letter Indication: H/O partial nephrectomy Abdominal pain, [...] generalized Planned Observations Serum Free Light Chains (02313)Indication: Abnormal blood chemistry On: 70-Xuz-646379:54 Request MICROALBUMIN: CREATININE RATIO (44176) AND (97173)Indication: Hypertension, benign On: 5-Oyg-131985:06 Request IMMUNOGLOBULIN E (IgE) (00668)Indication: Acute bronchitis On: :06 Request LIPID PANEL (69465)Indication: Mixed hyperlipidemia On: :40 Request ISXTB-JFBCMYPOUWN-SVYFH (98893)Indication: Fatty liver On: :40 Request HGB A1C (26996)Indication: Impaired Fasting Glucose On: :40 Request METABOLIC PANEL, COMPREHENSIVE (81507)Indication: Impaired Fasting Glucose On: :40 Request CBC (AUTO) (20441)Indication: Impaired Fasting Glucose On: :49 Request Vitamin D Hydroxy (07454)Indication: Vitamin D deficiency On: :48 Request METABOLIC PANEL, COMPREHENSIVE (76885)Indication: Mixed hyperlipidemia On: :48 Request LIPOPROTEIN, BLD, BY NMR (58168)Indication: Mixed hyperlipidemia On: :48 Request FMTLT-IMCXVIHPHLP-XNDCJ (91544)Indication: Acute foot pain, right On: 83-Hnn-407962:38 Request Vitamin D Hydroxy (51063)Indication: Vitamin D deficiency On: :50 Request YYCGQ-WXYXLZJBKXG-XSXFI (13251)Indication: Fatty liver On: :50 Request METABOLIC PANEL, COMPREHENSIVE (81547)Indication: Impaired Fasting Glucose On: 23-Nov-20159:49 Request MICROALBUMIN: CREATININE RATIO (69398) AND (18517)Indication: Impaired Fasting Glucose On: :49 Request HGB A1C (29927)Indication: Impaired Fasting Glucose On: :49 Request LIPID PANEL (98360)Indication: Mixed hyperlipidemia On: :49 Request LIPID PANEL (12576)Indication: Mixed hyperlipidemia On: : Request MICROALBUMIN: CREATININE RATIO (41888) AND (84495)Indication: Impaired Fasting Glucose On: : Request Hemoglobin Glyclated (HGB A1C) (44096)Indication: Impaired Fasting Glucose On: : Request Vitamin D Hydroxy (83042)Indication: Vitamin D deficiency On: 99-Lri-473944:00 Request Vitamin D Hydroxy (65528)Indication: Vitamin D deficiency On: 76-Xyt-454395:11 Request CBC with auto diff (94696)Indication: Hypertension, benign On: 71-Nxg-615419:11 Request METABOLIC PANEL, COMPREHENSIVE (66886)Indication: Impaired Fasting Glucose On: 46-Sag-729534:10 Request MICROALBUMIN: CREATININE RATIO (46415) AND (43060)Indication: Impaired Fasting Glucose On: 01-Gto-394749:10 Request Hemoglobin Glyclated (HGB A1C) (19118)Indication: Impaired Fasting Glucose On: 41-Bzg-860267:10 Request LIPID PANEL (73027)Indication: Mixed hyperlipidemia On: 08-Hgm-130543:10 Request EXEVY-UBBBMIZNLSL-GWFMS (61208)Indication: Fatty liver On: 64-Pjq-684865:10 Request Vitamin D Hydroxy (53267)Indication: Vitamin D deficiency On: 3-Kjv-435674:15 Request Hemoglobin Glyclated (HGB A1C) (34973)Indication: Impaired Fasting Glucose On: 7-Ygy-598104:14 Request METABOLIC PANEL, COMPREHENSIVE (20242)Indication: Impaired Fasting Glucose On: 7-Elp-251009:14 Request LIPID PANEL (30321)Indication: Mixed hyperlipidemia On: 2-Tjs-990047:14 Request Lipid Panel (98686)Indication: Elevated liver enzymes On: 88-Jao-498524:47 Request HEPATIC FUNCTION PANEL (03777)Indication: Mixed hyperlipidemia On: 39-Sgj-597475:08 Request CALCIFEDIOL (55409)Indication: Unspecified Diagnosis On: 40-Qwc-46277:53 Request Lipid Panel (22354)Indication: Unspecified Diagnosis On: 35-Ckz-20564:53 Request Lipid Panel (68699)Indication: SCREENING FOR HYPERLIPIDEMIA (Renamed from Encounter for screening for lipoid disorders) On: 70-Gws-682422:34 Request Comments: To be drawn Fasting Mar 2014 METABOLIC PANEL, COMPREHENSIVE (41273)Indication: Left knee pain On: 98-Goq-102144:39 Request CCP ANTIBODY (98722)Indication: Left knee pain On: 84-But-764382:39 Request SED RATE ERYTHROCYTE (69069)Indication: Left knee pain On: 74-Naf-669198:39 Request C-REACTIVE PROTEIN (07329)Indication: Left knee pain On: 83-Vur-028263:39 Request TSH (00026)Indication: Left knee pain On: 01-Ciz-461984:39 Request RHEUMATOID FACTOR-QUANT (10824)Indication: Left knee pain On: 92-Cwg-361164:39 Request Rapid Strep Test, Office (23655)Indication: ACUTE PHARYNGITIS (462.) On: 30-Lro-06875:20 Request C-REACT PROT HIGH SENS(hsCRP) (82785)Indication: Hypertension, benign On: 61-Gpl-574356:16 Request Sed Rate Erythrocyte (55206)Indication: Hypertension, benign On: 37-Msk-482666:16 Request CBC with manual diff (25673)Indication: Hypertension, benign On: :16 Request TSH (96277)Indication: Chest pain On: :33 Request CBC WITH MANUAL DIFF (26978)Indication: Chest pain On: :33 Request MICROALBUMIN: CREATININE RATIO (42180) AND (59075)Indication: Hypertension, benign On: :47 Request URINALYSIS, W/ MICRO (65096)Indication: Hypertension, benign On: 28-Ise-067397:47 Request Hemoglobin Glyclated (HGB A1C) (36981)Indication: Obesity, unspecified On: 00-Usx-966924:47 Request LIPID PANEL (78308)Indication: Mixed hyperlipidemia On: 45-Uza-279630:46 Request METABOLIC PANEL, COMPREHENSIVE (56178)Indication: Hypertension, benign On: 90-Ish-468065:46 Request Planned Encounters Medical; [facility] Exam (Doctor) - On: 20-Aug-2018 13:30 [facility] Fast DO, Marcelle A Fast DO, Marcelle A Planned Procedures ELECTROCARDIOGRAM, COMPLETE (ECG) On: 26-Jul-2018 Intent (41877)By: Catalina Corona Comments: Normal Sinus Rhythm-HR 67 ORTHOSTATIC BLOOD PRESSURE On: 26-Jul-2018 Intent ASSESSMENT (66280)By: Catalina Corona Comments: Layin/68 HR 60Sittin/70 FZ56Vpljxmgl: 84/66 HR 90 Flu Vaccine (Quadrivalent) 86867Il: On: 30-Apr-2018 Intent Fast DO, Marcelle A Fast DO, Marcelle A Comments: Lot #[id number]/30/19Site-L dltd, IMDose prefilled syringegiven by: Marta AVINA reviewed and ABN signed MAGNETIC RESONANCE IMAGING OF RIGHT On: 07-Mar-2018 Intent CALF WITHOUT THEN WITH CONTRAST (28826)By: Sara Henry Doppler Ultrasound OtherBy: Fast DO, [...] A ELECTROCARDIOGRAM, COMPLETE (ECG) On: 20-Jun-2017 Intent (72595)By: Fast DO, Marcelle A Fast DO, Marcelle A SCREENING DIGITAL TOMOSYNTHESIS OF On: 20-Jun-2017 Intent BREAST (71533)By: Fast DO, Marcelle A Fast DO, Marcelle A Flu Vaccine (Quadrivalent) 71167Si: On: 20-Jun-2017 Intent Fast DO, Marcelle A Fast DO, Marcelle A Comments: lot: [id number]: 02/05/18ite/route: Martha blayne, IMamt: 0.5mlVIS and ABN signed when [...] Comments: Lot:[id number]:01/05Dose:1mlRoute:IMSite:l armGiven By:BRIAN signed Aerosol Treatment (39972)By: Fast On: 23-Sep-2016 Intent DO, Marcelle A Fast DO, Marcelle A Comments: with albuterol Ultrasound - ThyroidBy: Fast DO, On: 29-Aug-2016 Intent Marcelle A Fast DO, Marcelle A Radiology - Shoulder - LeftBy: Fast On: 16-May-2016 Intent DO, Marcelle A Fast DO, Marcelle A Comments: with ac joint please DEXA SCAN AXIAL SKELETON (67511)By: On: 16-May-2016 Intent Fast DO, Marcelle A Fast DO, Marcelle A MAMMOGRAM, SCREENING, BOTH BREAST On: 16-May-2016 Intent (54201)By: Fast DO, Marcelle A Fast DO, Marcelle A ELECTROCARDIOGRAM, COMPLETE (ECG) On: 16-May-2016 Intent (51560)By: Fast DO, Marcelle A Fast DO, Comments: ekg showed normal sinus rhythym, normal axis, no acute st/t wave changes slight prolong qt Marcelle A Flu Vaccine (Quadrivalent) 42256Kp: On: 16-May-2016 Intent Fast DO, Marcelle A Fast DO, Marcelle A Comments: Lot #:[id number] date:02/17/17mount given:0.5mlRoute: IMSite given: left deltoidGiven by: [...] MAMMOGRAM, SCREENING, BOTH BREAST On: 15-May-2015 Intent (06557)By: Fast DO, Marcelle A Fast DO, Marcelle A Flu Vaccine (Quadrivalent) 72798Xe: On: 15-May-2015 Intent Fast DO, Marcelle A Fast DO, Marcelle A Comments: Lot:[id number]:01/03Dose:0.5mLRoute:IMSite:L DltdGiven By:AZEB Kennedy signed ADMINISTRATION OF INFLUENZA VIRUS On: 15-May-2015 Intent VACCINE (G0008)By: Marcelle Daley DO, DO, Debra A EKG (92125)By: Marcelle Daley DO On: 06-Feb-2015 Intent Marcelle Daley DO Comments: ekg showed normal sinus rhythym, normal axis, no acute st/t wave changes lvh no change Aerosol Treatment (70455)By: Christy On: 15-Jan-2015 Intent Jing MATHIS Comments: more a/e - still exp noise on left side only Radiology - Chest- PA and LatBy: On: 15-Jan-2015 Intent Jing Harrison DO Flu Vaccine (Quadrivalent) 35392Hb: On: 20-Jun-2014 Intent Vivian Washington CNP ADMINISTRATION [...] ADMNIN, 1 VAC, SNGL/COMBO On: 03-Jul-2013 Intent (97646)By: Maty Taveras LPN Comments: Lot #[id number]-L dltd, IMDose prefilled syringegiven by:SIMONE Luque and ABN signed FLU VAC, SPLIT, >3 YEARS, INTRAMUSC On: 03-Jul-2013 Intent (60430)By: Maty Taveras LPN Toradol Injection, 30 mg (J1885)By: On: 31-May-2013 Intent Felix Vivian BACH Radiology - Left KneeBy: Felix ISREAL, On: 31-May-2013 Intent Vivian Mosqueda Eprescribed prescriptions (G8553)By: On: 06-Mar-2013 Intent Sara Henry EKG (50812)By: Fast DO, Marcelle A On: 15-Oct-2012 Intent Fast DO, Marcelle A Comments: ekg showed normal sinus rhythym, normal axis, no acute st/t wave changes nsivcd no change Spirometry (47542)By: Fast DO, On: 15-Oct-2012 Intent Marcelle A Fast DO, Marcelle A Comments: good effort and curve normal Radiology - Chest- PA and LatBy: On: 15-Oct-2012 Intent Fast DO, Marcelle A Fast DO, Marcelle A Ultrasound - GallbladderBy: Fast DO, On: 09-Oct-2012 Intent Marcelle A Fast DO, Marcelle A Eprescribed prescriptions (G8553)By: On: 09-Oct-2012 Intent Melania Salcedo Aerosol Treatment (91042)By: Felix On: 21-Sep-2012 Intent Vivian BACH Eprescribed prescriptions (G8553)By: On: 20-Jul-2012 Intent Melania Salcedo SPECIMEN HNDLNG/TRNSPRT, OFFC > LAB On: 11-Jul-2012 Intent (24502)By: George Oscar LPN FLU VAC, SPLIT, >3 YEARS, INTRAMUSC On: 18-May-2012 Intent (82318)By: Melania Salcedo Comments: Lot:[id number]:6.30.13Dose:prefilledRoute:IMSite:L DltdGiven By:BRIAN signed CT - Abdomen & PelvisBy: Fast DO, On: 18-May-2012 Intent Marcelle A Fast DO, Marcelle A Echo CompleteBy: Fast DO, Marcelle A On: 18-May-2012 Intent Fast DO, Marcelle A Spirometry (29737)By: Fast DO, On: 18-May-2012 Intent Marcelle A Fast DO, Marcelle A Comments: good effort and curve normal Eprescribed prescriptions (G8553)By: On: 18-May-2012 Intent Fast DO, Marcelle A Fast DO, Marcelle A EKG (91986)By: Fast DO, Marcelle A On: 18-May-2012 Intent Fast DO, Marcelle A Comments: sinus with deep r waves left axis no acute st t chris Radiology - Chest- PA and LatBy: On: 18-May-2012 Intent Fast DO, Marcelle A Fast DO, Marcelle A TD Injection , IM (14490)By: On: 18-May-2012 Intent Melania Salcedo Comments: received in 2002 IMMUNIZ ADMNIN, 1 VAC, SNGL/COMBO On: 18-May-2012 Intent (56618)By: Melania Salcedo Planned Medications INJECTION, KETOROLAC TROMETHAMINE, [...] : Patient Instructions Indication: Impaired Fasting Glucose [facility] Wellness Physical : How to access health information online Indication: [facility] : How to access [...] Indication: Hypertension, benign Encounters Phone Encounter On: 31-Jul-2018 13:53 Encounter Diagnosis: [...] it passed. Dizziness with movement. Was at [employer] working out and thought would stop and [...] BP med/ Will be seeing neurologist in [place] tomorrow), has decreased energy level (comes and [...] Problem - Note for Foot problem: saw wuvinh for foot pain- and got stero id [...] is sleeping poorly (just got back from [place], time zone). Patient has been compliant with [...] the cleanse and has been going to [employer] with a personal train End: 16-Oct-2017 10:58 [...] chronic medical issues: is working out with job trainer once a week- and trying to [...] was walkign regularly at the [facility] until last week -bp is ok- foot [...] medication. Was keeping track of BP at [facility] but the c End: 20-Sep-2015 17:39 [...] with oncologist- which didnt feel she got lindsaydarryl answeer- has had abd pain for 4 [...] do from here. Has seen Oncologist in [place], Dr. Jan Healy which he has referred her to [facility] which she is waiting to get in. margins were not clear and was renal cell carcino ma- darrick wanted to do watchful waiting- but went for second opinion in [place]-- got referred to Dr Iglesia Gibbons- she [...] for new patient female physical[facility] [...] Abdominal Pain,General (789.07) [facility] Payers [facility] TEMITOPE VALDOVINOS; a guarantor
== END ==
PROVIDERS: Family Provider Internal Medicine; PCP Internal Medicine; Referring Provider Internal Medicine; Visit Provider Internal Medicine
DX: E78.5 Hyperlipidemia, unspecified (principal)
CPT/HCPCS: 75571; 76380

== ENCOUNTER → 2018-10-04 12:22 | Outpatient (CLI) | payer OTHER, SELFPAY ==
[2018-09-06 13:38] VITALS: BMI 30.2
--- NOTE | 2018-10-04 12:24 | BI_ITS ---
MAMMOGRAPHY - BILATERAL SCREENING REASON FOR EXAM: Female, 53 years old. Routine annual screening examination. PERTINENT HISTORY: Non-contributory. TECHNIQUE: Digital bilateral breast harriett (3D mammographic acquisition) in the CC and MLO projections. 2-D mediolateral oblique (MLO) and craniocaudad (CC) views of both breasts were obtained. CAD: Full Field Digital Mammography with Computer Added Detection was performed. COMPARISON: Comparison is made with prior examination of August 01, 2017 and June 09, 2016. FINDINGS: Breast Composition: There are scattered areas of fibroglandular density. There are no dominant masses or suspicious calcifications. Stable small bilateral axillary lymph nodes. No other significant abnormalities are identified. There has been no significant change since the prior study. BI/SCREENING MAMM (CAD), BILAT IMPRESSION: Stable bilateral screening mammogram. Yearly follow-up mammogram recommended. (A) ASSESSMENT CATEGORY: BIRADS Category 2: Benign. A letter regarding these results will be sent to the patient by the facility within 30 days. Approximately 10% of breast cancers are not detected by mammography. A normal mammogram should not delay biopsy of a clinically suspicious abnormality. [id number] Electronically Signed: Jono Dumont MD at 15:18 EST , Service support ,
--- NOTE | 2018-10-04 12:29 | BD_ITS ---
STUDY: DUAL ENERGY X-RAY ABSORPTIOMETRY / DXA REASON FOR EXAM: Female, 53 years old. Early menopause. Loss of height. TECHNIQUE: Bone Mineral Density (BMD) measurements of lumbar spine and bilateral hips were obtained. COMPARISON: Comparison is made with prior study dated June 09, 2016. FINDINGS: Lumbar Spine (L1-L4): g/cm2 (1.272) / T-score (0.8) / Z-score (1.4) Findings are suggestive of normal bone density with a low fracture risk. Left Femur Total: g/cm2 (1.178) / T-score (1.4) / Z-score (1.9) Left Femoral Neck: g/cm2 (1.062) / T-score (0.2) / Z-score (1.1) Right Femur Total: g/cm2 (1.180) / T-score (1.4) / Z-score (1.9) Right Femoral Neck: g/cm2 (1.100) / T-score (0.4) / Z-score (1.4) The T-Scores on the most recent prior examination were: Lumbar Spine (L1-L4): There has been improvement of bone density since the previous examination. Left Femur Total: which represents an improvement of 3.4%. Right Femur Total: which represents an improvement of 7.2%. BD/Dexa Bone Density Study IMPRESSION: The patient is considered normal as outlined below according to World Carlos Organization (WHO) criteria with a low fracture risk. There has been improvement of bone density since the previous examination. Reference Information: The T-score is the number of standard deviations above or below the standard which is normal for young adults at their peak bone mineral density. The World Health Organization (WHO) interprets the T-scores as follows: Above -1 Normal bone density Between -1 and -2.5 Osteopenia Equal to / or below -2.5 Osteoporosis As a practical clinical guideline, osteopenia may be graded as follows: Mild -1 through -1.5 Moderate -1.6 through -2.0 Severe -2.1 through -2.4 The Z-score is the number of standard deviations above or below age-matched controls. A Z-score of less than -1.5 would be considered abnormal. References: 1. NIH Osteoporosis and Related Bone Diseases http://www.osteo.org 2. International Society for Clinical Densitometry http://www.iscd.org 3. National Osteoporosis Foundation http://www.nof.org Electronically Signed: Jono Dumont MD at 8:19 EST , Service support ,
== END ==
PROVIDERS: Family Provider Internal Medicine; PCP Internal Medicine; Referring Provider Internal Medicine; Visit Provider Internal Medicine
DX: Z12.31 Encounter for screening mammogram for malignant neoplasm of breast (principal); Z78.0 Asymptomatic menopausal state
CPT/HCPCS: 77063; 77067; 77080

== ENCOUNTER → 2018-10-05 11:06 | Outpatient (CLI) | payer OTHER, SELFPAY ==
[2018-09-06 13:38] VITALS: BMI 30.2
[2018-10-05 12:21] LABS: Erythrocyte Sedimentation Rate 3 mm/hr (0-30)
[2018-10-05 12:47] LABS: Thyroid Stim Hormone (TSH) 1.08 uIU/mL (0.358-3.74)
[2018-10-08 14:07] LABS: PROEL- A/G Ratio 1.4 (0.7-1.7); PROEL- Albumin 4.2 g/dL (2.9-4.4); PROEL- Alpha-1 Globulin 0.2 g/dL (0.0-0.4); PROEL- Alpha-2 Globulin 0.6 g/dL (0.4-1.0); PROEL- Beta Globulin 1.2 g/dL (0.7-1.3); PROEL- TOTAL PROTEIN 7.2 g/dL (6.0-8.5)
== END ==
PROVIDERS: Family Provider Internal Medicine; PCP Internal Medicine
DX: R20.2 Paresthesia of skin (principal)
CPT/HCPCS: 36415; 84165; 84443; 85652

== ENCOUNTER → 2019-02-11 | Outpatient (CLI) | payer OTHER, SELFPAY ==
[2018-09-06 13:38] VITALS: BMI 30.2
--- NOTE | 2019-02-11 10:33 | CT_ITS ---
STUDY: CT ABDOMEN AND PELVIS WITH CONTRAST REASON FOR EXAM: Female, 53 years old. RADIATION DOSAGE (If Supplied By Facility): CTDIvol = ( 14.7 ) mGy, DLP = ( 831.35 ) mGycm TECHNIQUE: Transaxial images were obtained from the dome of the diaphragm to the symphysis pubis without oral contrast. 100 IV Isovue 300 was administered. Sagittal and coronal images were reconstructed. Individualized dose optimization techniques were used for this CT. COMPARISON: None. FINDINGS: The visualized lung bases are unremarkable. The visualized portions of the heart are within normal limits. The liver is not enlarged but the right lobe is elongated no focal lesion noted. The spleen is unremarkable. The suprarenal glands and pancreas are within normal limits. Both kidneys are normal in size, shape and position no hydronephrosis or stone formation. The small is within normal limits. There is diverticulosis of the sigmoid with possible diverticulitis manifested by fat stranding in the region. The uterus is absent. There are multiple phleboliths in the pelvic cavity. The appendix could not be seen. There is no evidence of periaortic lymphadenopathy, free air or fluid within the peritoneal cavity. CT/Abdomen/Pelvis W IV Cont ONLY IMPRESSION: Evidence of sigmoid diverticulosis with diverticulitis due to fat stranding and mild enhancement. Electronically Signed: Amado Coles, at 15:06 EDT Tel , Service support ,
[2019-02-11 10:38] LABS: Absolute Lymphocyte Count 1.15 X10^3/ul (0.83-4.51); Absolute Neutrophil Count 13.3 X10^3/uL (2.0-7.7); Basophil# 0.02 X10^3/uL; Basophil% 0.1 % (0-1); Eosinophil# 0.01 X10^3/uL; Eosinophils% 0.1 % (0-5); Hematocrit 41.9 % (37-47); Hemoglobin 13.8 g/dl (12.0-15.0); Lymphocyte # 1.15 X10^3/ul (4.0); Lymphocyte % 7.7 % (19-41); Mean Corp Hgb Conc 32.9 g/gl (32-36); Mean Corpuscular Hgb 28.2 pg (27.0-32.0); Mean Corpuscular Volume 85.7 fL (81-99); Monocyte# 0.47 X10^3/uL; Monocyte% 3.1 % (0-10); Neutrophil # 13.26 X10^3/uL (2.7-7.7); Neutrophil % 88.7 % (47-70); Platelet Count 164 K/mm3 (150-450); RBC Distribution Width CV 14.8 % (11.6-14.6); RBC Distribution Width SD 46.2 fl (35.1-43.9); Red Blood Count 4.89 M/mm3 (4.2-5.4)
[2019-02-11 10:39] LABS: POSITIVE COUNT NO; POSITIVE DIFFERENTIAL NO; POSITIVE MORPHOLOGY NO
[2019-02-11 10:53] LABS: ALB/GLOB Ratio 1.2 RATIO (0.9-2.4); AST(SGOT) 20 U/L (15-37); Alanine Aminotransfer ALT/SGPT 41 U/L (13-56); Alkaline Phosphatase 79 U/L (45-117); Anion Gap 8 (5-15); BUN 20 mg/dL (7-18); BUN/Creat Ratio 24.6 RATIO (10-20); Calcium,Total 8.9 mg/dL (8.5-10.1); Chloride 106 mmol/L (98-107); Creatinine, Serum 0.81 mg/dL (0.55-1.02); EST Glomerular Filtration Rate 78 mL/min (>60); Est Glom Filt Rate - Afr Amer 95 mL/min (>60); Globulin 3.4 g/dL (2.2-4.2); Glucose 108 mg/dL (74-106); Potassium 3.8 mmol/L (3.5-5.1); Protein, Total 7.4 g/dL (6.4-8.2); Sodium Level 142 mmol/L (136-145)
== END | disposition home or self-care (01) ==
PROVIDERS: Family Provider Internal Medicine; PCP Internal Medicine; Referring Provider Nurse Practitioner Gerontology; Visit Provider Nurse Practitioner Gerontology
DX: R10.30 Lower abdominal pain, unspecified (principal)
CPT/HCPCS: 36415; 74177; 80053; 85025; Q9967

== ENCOUNTER → 2019-03-05 | Outpatient (CLI) | payer OTHER, SELFPAY ==
[2018-09-06 13:38] VITALS: BMI 30.2
--- NOTE | 2019-03-05 15:26 | RAD_ITS ---
STUDY: X-RAY - ABDOMEN/PELVIS REASON FOR EXAM: Female, 53 years old. Left lower abdominal pain. Recent diverticulitis. TECHNIQUE: Single AP view of the abdomen / pelvis. COMPARISON: CT scan 02/11/2019. FINDINGS: There is an unremarkable bowel gas pattern. There is no demonstrated free abdominal air. The visualized liver, spleen and kidneys are grossly normal in size and morphology. Normal soft tissue structures. Normal visualized osseous structures. RAD/Abdomen Single View IMPRESSION: Normal x-ray examination of the abdomen and pelvis. Electronically Signed: Shine Sawyer MD at 15:57 EDT , Service support ,
== END | disposition home or self-care (01) ==
LOC: HPRAD 15:22
PROVIDERS: Family Provider Internal Medicine; PCP Internal Medicine; Referring Provider Nurse Practitioner; Visit Provider Nurse Practitioner
DX: K59.00 Constipation, unspecified (principal)
CPT/HCPCS: 74018

== ENCOUNTER → 2019-04-01 | Outpatient (CLI) | payer OTHER, SELFPAY ==
[2018-09-06 13:38] VITALS: BMI 30.2
--- NOTE | 2019-04-01 11:12 | US_ITS ---
STUDY: THYROID ULTRASOUND REASON FOR EXAM: Female, 53 years old. Follow-up of nodules TECHNIQUE: Ultrasound evaluation of the thyroid was performed with real-time and static acharya-scale imaging. COMPARISON: Prior study of October 17, 2017 FINDINGS: RIGHT LOBE: The right lobe of the thyroid gland measures 5.7 x 2.5 x 2.5 cm. There is a heterogeneous echotexture. There are multiple right thyroid lobe nodules. There is a hypoechoic nodule of the mid pole measuring 1.6 x 1.4 x 1.5 cm. There is a complex nodule of the inferior pole measuring 1.9 x 1.4 x 1.4 cm. There is a 0.8 x 0.7 x 0.6 cm cystic nodule of the mid to superior pole. LEFT LOBE: The left lobe of the thyroid gland measures 4.9 x 1.8 x 1.6 cm. There is a heterogeneous echotexture. There is a hyperechoic nodule of the mid pole measuring 0.7 x 0.6 x 0.5 cm. There is a hypoechoic nodule of the upper pole measuring 0.5 x 0.6 x 0.3 cm. ISTHMUS: The isthmus measures 4 millimeters. The regional lymph nodes are normal. US/Thyroid IMPRESSION: Bilateral thyroidal nodules, several of which have decreased in size in the interval. No new nodules are evident. Follow-up thyroid ultrasound in one year is recommended to assess for stability. Electronically Signed: Johann Hubbard MD at 18:47 EDT , Service support ,
== END | disposition home or self-care (01) ==
LOC: US 11:11
PROVIDERS: Family Provider Internal Medicine; PCP Internal Medicine; Referring Provider Internal Medicine; Visit Provider Internal Medicine
DX: Z78.9 Other specified health status (principal)
CPT/HCPCS: 76536

== ENCOUNTER → 2019-06-26 10:19 | Outpatient (CLI) | payer OTHER, SELFPAY ==
[2018-09-06 13:38] VITALS: BMI 30.2
--- NOTE | 2019-06-26 10:40 | MRI_ITS ---
STUDY: MRI RIGHT FOREFOOT WITHOUT CONTRAST REASON FOR EXAM: Female, 54 years old. The patient presents with a history of soft tissue mass the plantar aspect of the second and third toes. Evaluate for osteoarthritis versus plantar plate rupture. TECHNIQUE: Standardized fat and water weighted pulse sequences were obtained in all 3 orthogonal planes. COMPARISON: X-RAY FOOT-April 28, 2017 FINDINGS: There is mild arthrosis of the metatarsophalangeal joint of the hallux with minimal dorsoplantar spur formation of the first metatarsal head (sagittal T1 series 2, image 6). There is a small volume joint effusion (sagittal STIR series 3, image 5; axial T2 series 5, image 23). There is a very subtle hallux valgus deformity with medial capsular thickening (coronal T2 series 6, image 14). There is mild subcortical bone marrow edema of the medial aspect of the first metatarsal head (sagittal STIR series 3, image 3). Normal tibial and fibular sesamoids, with normal sesamoids-first metatarsal articulations. Normal interphalangeal joint of the hallux. Normal proximal and distal phalanges of the great toe. Normal medial and lateral heads of the flexor hallucis brevis tendons. Normal flexor and extensor hallucis longus tendons. There is edema of the subcutaneous adipose space extending along the flexor tendon sheaths of the second metatarsophalangeal joint (sagittal STIR series 3, image 13). There is a normal plantar plate. Normal metatarsophalangeal joint of the second toe. There is mild hammertoe deformity of the distal phalanges. Normal plantar plate of the third metatarsophalangeal joint (sagittal STIR series 3, image 17) with a normal metatarsophalangeal and interphalangeal joints. Normal fourth and fifth metatarsophalangeal joint and phalanges. There is a severe hammertoe deformity of the toes of the fifth digit. There is an intermetatarsal bursitis of the second and third intermetatarsal spaces (axial T2 series 5, image 22). Normal flexor and extensor tendons of the second through fifth toes. Normal visualized metatarsi. Normal intrinsic muscles of the forefoot. There is no demonstrated soft tissue abnormality. MRI/Lower Ext/No Jt/w/o IMPRESSION: 1. 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 2. Edema of the subcutaneous adipose space extending along the flexor tendon sheaths of the second metatarsophalangeal joint. 3. Normal plantar plates of the second and third metatarsophalangeal joints. 4. Intermetatarsal bursitis of the second and third intermetatarsal spaces. 5. Hammertoe deformities of the second, and fifth toes. Electronically Signed: Kash Jordan DO at 12:54 EST Tel , Service support ,
== END ==
PROVIDERS: Family Provider Internal Medicine; PCP Internal Medicine; Referring Provider Podiatrist; Visit Provider Podiatrist
DX: G57.81 Other specified mononeuropathies of right lower limb (principal); S93.524A Sprain of metatarsophalangeal joint of right lesser toe(s), initial encounter; M79.9 Soft tissue disorder, unspecified; M19.071 Primary osteoarthritis, right ankle and foot
CPT/HCPCS: 73718

== ENCOUNTER → 2019-07-03 12:32 | Outpatient (CLI) | payer OTHER, SELFPAY ==
[2018-09-06 13:38] VITALS: BMI 30.2
--- NOTE | 2019-07-03 12:36 | RAD_ITS ---
STUDY: X-RAY - PELVIS AND RIGHT HIP REASON FOR EXAM: Female, 54 years old. Hip pain. TECHNIQUE: Right views of the pelvis and hip. COMPARISON: None. FINDINGS: There is a normal bowel gas pattern. There are multiple calcified phleboliths. There is narrowing with cortical sclerosis and osteophyte formation of the sacroiliac joint consistent with degenerative osteoarthritic changes. Normal bilateral superior and inferior pubic rami. Normal pubic symphysis. Normal bilateral ischial tuberosities. Normal visualized femoral head. Normal acetabulum. Normal hip joint. There is enthesopathic spurring at the greater trochanter. RAD/HIP, UNI W/ Pelvis 2-3 Views IMPRESSION: No acute fracture. Joint spaces are well-preserved. Mild spurring. Electronically Signed: Jesse Carrington MD at 21:04 EST , Service support ,
[2019-07-03 13:33] LABS: AST(SGOT) 20 U/L (15-37); Alanine Aminotransfer ALT/SGPT 43 U/L (13-56); Albumin, Serum 3.9 g/dL (3.2-5.0); Alkaline Phosphatase 76 U/L (45-117); Bilirubin, Direct 0.11 mg/dL (0.00-0.30); Globulin 3.2 g/dL (2.2-4.2); Protein, Total 7.1 g/dL (6.4-8.2)
== END ==
PROVIDERS: Family Provider Internal Medicine; PCP Internal Medicine; Referring Provider Internal Medicine; Visit Provider Internal Medicine
DX: M25.551 Pain in right hip (principal); R74.8 Abnormal levels of other serum enzymes; R94.31 Abnormal electrocardiogram [ECG] [EKG]
CPT/HCPCS: 73502; 80076; 84484

== ENCOUNTER → 2019-07-15 12:59 | Outpatient (CLI) | payer OTHER, SELFPAY ==
[2018-09-06 13:38] VITALS: BMI 30.2
--- NOTE | 2019-07-15 13:02 | ECHOD_ITS ---
Reason For Study: Abnormal EKG Procedure This was a 2D Doppler, Color Flow transthoracic echocardiogram. Exam performed in department. Left Ventricle Normal LV size. Mild concentric left ventricular hypertrophy. Left ventricular systolic function is normal. The estimated ejection fraction is 60 %. Stage 1 diastolic dysfunction. No regional wall motion abnormalities noted. Right Ventricle Normal RV size. Normal systolic function. Atria Normal left atrium. Normal right atrium. Mitral Valve Normal mitral valve. Trivial eccentric mitral valve insufficiency. Tricuspid Valve Normal tricuspid valve. Aortic Valve Normal aortic valve. Trisinus/trileaflet aortic valve. Pulmonic Valve Normal pulmonic valve. Great Vessels Normal aortic root. The pulmonary artery is normal size. Normal inferior vena cava. Pericardium/Pleural No pericardial effusion. MMode/2D Measurements & Calculations LVIDd: 5.1 cm IVSd: 1.2 cm Ao root diam: 3.4 cm LVIDs: 3.3 cm LVPWd: 1.2 cm LA dimension: 4.0 cm RVDd: 3.4 cm FS: 35.1 % LAV(MOD-bp): 60.9 ml LA A4 area: 17.6 cm2 RA A4 area: 15.1 cm2 LAV(MOD-bp) Indexed: 34.5 ml/m2 LAV(MOD-sp2): 64.7 ml LAV(MOD-sp4): 51.0 ml Time Measurements MV dec time: 0.38 sec Doppler Measurements & Calculations MV E max nicolás: 58.8 cm/sec Lat Peak E' Nicolás: 6.3 cm/sec Med Peak E' Nicolás: 6.3 cm/sec MV A max nicolás: 91.7 cm/sec E/E' lat: 9.4 E/E' med: 9.3 MV E/A: 0.64 MV V2 max: 103.0 cm/sec MV P1/2t max nicolás: 76.1 cm/sec Ao V2 max: 158.5 cm/sec MV max P.2 mmHg MV P1/2t: 113.9 msec Ao max P.1 mmHg MV V2 mean: 55.8 cm/sec MV dec slope: 195.6 cm/sec2 MV mean P.4 mmHg MVA(P1/2t): 1.9 cm2 MV V2 VTI: 31.4 cm LV V1 max: 87.9 cm/sec MR max nicolás: 499.8 cm/sec PA V2 max: 95.3 cm/sec LV V1 max P.1 mmHg MR max P.9 mmHg Interpretation Summary Normal LV size. Left ventricular systolic function is normal. Mild concentric left ventricular hypertrophy. The estimated ejection fraction is 60 %. Stage 1 diastolic dysfunction. Ordering Physician: Marcelle Morales Referring Physician: Marcelle Morales Performed By: Aris Yin RCS
== END ==
PROVIDERS: Family Provider Internal Medicine; PCP Internal Medicine; Referring Provider Internal Medicine; Visit Provider Internal Medicine
DX: R94.31 Abnormal electrocardiogram [ECG] [EKG] (principal)
CPT/HCPCS: 93306

== ENCOUNTER → 2019-10-17 12:21 | Outpatient (CLI) | payer OTHER, SELFPAY ==
[2018-09-06 13:38] VITALS: BMI 30.2
--- NOTE | 2019-10-17 12:24 | BI_ITS ---
MAMMOGRAPHY - BILATERAL SCREENING REASON FOR EXAM: Female, 54 years old. Routine annual screening examination. PERTINENT HISTORY: Routine screening TECHNIQUE: Digital bilateral breast kisha (3D mammographic acquisition) in the CC and MLO projections. 2-D mediolateral oblique (MLO) and craniocaudad (CC) views of both breasts were obtained. CAD: Full Field Digital Mammography with Computer Added Detection was performed. COMPARISON: Previous mammogram obtained on 10/04/2018 FINDINGS: Breast Composition: Heterogeneously dense There are no dominant masses or suspicious calcifications. No other significant abnormalities are identified. BI/SCREEN MAMM (CAD) W/KISHA BILAT IMPRESSION: Stable bilateral screening mammogram. Yearly follow-up mammogram recommended. (A) ASSESSMENT CATEGORY: BIRADS Category 1: Negative. A letter regarding these results will be sent to the patient by the facility within 30 days. Approximately 10% of breast cancers are not detected by mammography. A normal mammogram should not delay biopsy of a clinically suspicious abnormality. [id number] Electronically Signed: Alejandro Jason, at 19:28 EST Tel , Service support ,
== END ==
PROVIDERS: PCP Internal Medicine; Referring Provider Internal Medicine; Visit Provider Internal Medicine
DX: Z12.31 Encounter for screening mammogram for malignant neoplasm of breast (principal)
CPT/HCPCS: 77063; 77067

== ENCOUNTER 2019-12-03 07:30 | Outpatient (RCR) | payer OTHER, SELFPAY ==
[2018-09-06 13:38] VITALS: BMI 30.2
--- NOTE | 2019-11-06 09:55 | HP.PTEVAL_ITS ---
Patient's Visit Information AMY VALDOVINOS is a 54 year old F referred to Physical Therapy by Blayne Welsh DPM with a diagnosis of Right Hip, Knee and Foot Pain. Date of Evaluation: 11/06/19 Physical Therapist: Consuelo De La Fuente DPT - Visit Plan Frequency: 3x /Week Duration: 4 Weeks Plan: Focus on LE and core strength/stabilization - Subjective Subjective: Patient that her right side is a mess- about 5 weeks ago her right knee and hip started- insidious onset. She gets a twing in her hip and then her knee feels like its going to buckle. Happens a lot when she walks fast and everytime that she is running. Is not a consistent runner. She has had right foot pain for a long time- she has had mixed diagnosis- not sure if its truly neuropathy- EMG, CT Scan, etc...she has seen her PCP and neurologist. She is taking gabapentin for her foot- but it changes her balance and dizziness. Worst in the hip and knee: 5/10 Agg: walking fast Best: 210 Eases: not walking fast, stop. Does report popping and clicking- describes the pain as sharp when it goes but when she is sitting its more achy. Has been diagnosed with scaitica and does press ups and bridges. Sleep is not disturbed- side and belly sleeper- did have tweaks but that has subsided. No N/T in the hip/knee but does have numbness in the distal portion of her foot but that has been unchanges. Has had images on her hip/knee but is unsure of what all tests she has had. Pain is located in the greater troch down the quad and patellar tendon. Pain in her foot with driving and feels like something is crushing her toes- no ankle pain- only in the front of the foot. Does report some swelling but nothing consistent. PMHx: possible kidney cancer, multiple cysts removal but all benign. Meds: Celebrex, Gabapentin, Vitamin B6, Vitamin D drops, nasatec, z yrtec - Objective Posture: FH, RS- can correct but does not maintain. Gait: antalgic- toes turned inwards right>left (does wear orthotics) decreased step length with right LE. Stairs: asc/desc 8 recip with 1 HR- asc push off decreased with right- poor control with descent-no reports of pain. HR/TR: able with full ROM no UE A. SLS: Left: 20 seconds Right: 5 seconds both with hip drop. ROM: Lumbar: WNL no pain, Hip: WNL no pain, Knee: WNL but reports pain with end range both flexion and extension. Strength: Ankle: 5/5, Knee: Flexion: 4+/5, Extn: 4/5, Hip: Flexion/Abd: 4-/5, IR/ER: 3+/5, Extn: 4/5, Core: poor. Palpation: tender along lumbar parapsinals, gluts, greater troch, quad, lateral joint line of the knee and patellar tendon- along dorsal surface of midfoot and forefoot. Special Test: Mikaela: negative, Scour: negative, LLD: negative, Pelvic Alignment: WNL. Flex: HS: none Gastroc: mild - Goals Goal 1:: Patient will be I with HEP and progression Goal Time Frame: 4-6 Weeks Goal 2:: Patient will ambulate >300 feet with a normalized gait pattern Goal Time Frame: 4-6 Weeks Goal 3:: Patient will maintain proper posture t/o tx session to demo increased core s/s. Goal Time Frame: 4-6 Weeks Goal 4:: Patient will asc/desc 8 stairs recip with no HR and good control Goal Time Frame: 4-6 Weeks Goal 5:: Patient will report 2/10 pain for 1 week with ADL's. Goal Time Frame: 4-6 Weeks - Rehabilitation Potential Physical Therapy Diagnosis: Patient presents with hypmobility- she has decreased lower extremity and core strength/stabilization leading to increased pain with ADL's. Rehabilitation Potential: Fair - Anticipated Interventions Patient/Client Instruction: Educate patient on: Benefits of Fitness Program Therapeutic Exercise to Include: Strength training, Endurance training, Balance training, Agility training, Body mechanics, Postural training, Flexibilty training, Gait and locomotor training, Neuromotor development, Passive ROM, Active ROM, Dynamic Lumbar Stabilization, Scapular Strength/Stabilization For the Purpose of:: To improve muscle performance and motor function TENS: Yes Cryotherapy (ice pack, ice massage): Yes Thermo therapy (hot pack): Yes Ultrasound (thermal/non thermal): Yes Thank you for the opportunity to evaluate your patient. For Medicare and Medicare HMO plans, please review the plan of care and approve it. It will need to be FAXED BACK to us at [phone] for Medicare purposes. For Medicare only, by signing this I certify the plan of care. Please let me know if there are questions or concerns regarding this plan of care. Physician Signature: Date:
--- NOTE | 2019-12-31 12:21 | HP.PT.NRP ---
AMY VALDOVINOS was seen in my office for initial evaluation on 11/06/19. The following Plan of Care was established for this patient: Initial Frequency: 3x /Week Initial Duration: 4 Weeks Patient/Client Instruction: Educate patient on: Benefits of Fitness Program Therapeutic Exercise to Include: Strength training, Endurance training, Balance training, Agility training, Body mechanics, Postural training, Flexibilty training, Gait and locomotor training, Neuromotor development, Passive ROM, Active ROM, Dynamic Lumbar Stabilization, Scapular Strength/Stabilization For the Purpose of:: To improve muscle performance and motor function TENS: Yes Cryotherapy (ice pack, ice massage): Yes Thermo therapy (hot pack): Yes Ultrasound (thermal/non thermal): Yes This patient was last seen in our office . Pertinent comments regarding their Physical therapy will appear below: Patient is feeling much better- feels that she can continue exercises at home- discharge to [facility]. At this point I will be discontinuing this patient from physical therapy. I would be happy to see this patient again in the future if found appropriate by the physician. Thank you! KUMAR AlexanderT
== END 2019-12-03 19:00 | disposition home or self-care (01) ==
LOC: PT 07:30
PROVIDERS: PCP Internal Medicine; Referring Provider Podiatrist; Visit Provider Podiatrist
DX: M25.551 Pain in right hip (principal); M25.561 Pain in right knee; M71.571 Other bursitis, not elsewhere classified, right ankle and foot
CPT/HCPCS: 97110; 97162

== ENCOUNTER → 2020-01-20 09:57 | Outpatient (CLI) | payer OTHER, SELFPAY ==
[2018-09-06 13:38] VITALS: BMI 30.2
--- NOTE | 2020-01-20 10:05 | US_ITS ---
STUDY: THYROID ULTRASOUND REASON FOR EXAM: Female, 54 years old. NODULES TECHNIQUE: Ultrasound evaluation of the thyroid was performed with real-time and static acharya-scale imaging. COMPARISON: Thyroid ultrasound dated April 01, 2019 FINDINGS: RIGHT LOBE: The right lobe of the thyroid gland measures 5.4 x 2.8 x 1.9 cm.; Previously measured 5.7 x 2.5 x 2.5 cm There is a heterogeneous echotexture. There is a diffusely nodular and intermixed cystic appearance of the parenchyma with the largest dominant nodule located in the medial midpole region measuring 1.3 x 0.9 cm. LEFT LOBE: The left lobe of the thyroid gland measures 4.6 x 1.5 x 1.5 cm.; Previously measured 4.9 x 1.8 x 1.6 cm There is a heterogeneous echotexture. There is a diffusely nodular and intermixed cystic appearance of the parenchyma with the largest dominant nodule located in the inferior pole measuring 0.9 x 0.7 cm. ISTHMUS: The isthmus measures 4 mm. The right parathyroid gland is included on several images. The regional lymph nodes are normal. US/Thyroid IMPRESSION: 1. Slight interval decrease in overall size of the thyroid gland compared to the prior study. 2. Findings are compatible with multinodular goiter. Electronically Signed: Mark Negrete MD at 14:12 EDT , Service support ,
--- NOTE | 2020-01-20 10:12 | US_ITS ---
STUDY: ABDOMINAL ULTRASOUND - RIGHT UPPER QUADRANT REASON FOR VISIT: Female, 54 years old FATTY LIVER TECHNIQUE: Ultrasound evaluation of the right upper quadrant was performed with real-time and static acharya-scale imaging. TECHNICAL QUALITY: Adequate. COMPARISON: Comparison is made with prior CT scan and abdomen dated February 11, 2019. FINDINGS: Liver: The liver measures 17.2 cm. There is normal echogenicity of the liver. The bile ducts are within normal limits. There is hepatic color flow. The direction of portal flow is hepatopetal. There is no demonstrated mass lesion. Gallbladder: The patient is status post cholecystectomy. Common Bile Duct (C.B.D.): The common bile duct measures 3.6 mm. Pancreas: Normal size of the head, body and tail of the pancreas. There is normal echogenicity of the pancreas. There is no demonstrated pancreatic mass or cyst. Right Kidney: Normal size of the right kidney. The right kidney measures 12.1 cm x 6 cm x 4.3 cm. Normal renal cortex. The right cortex measures 1.1 cm. There is no demonstrated renal mass or cyst. There is no right hydronephrosis. US/Abdomen Limited IMPRESSION: Status post cholecystectomy No acute abnormality is seen. Electronically Signed: Jono Dumont, at 15:33 EDT , Service support ,
== END ==
PROVIDERS: PCP Internal Medicine; Referring Provider Internal Medicine; Visit Provider Internal Medicine
DX: E04.2 Nontoxic multinodular goiter (principal); K76.0 Fatty (change of) liver, not elsewhere classified
CPT/HCPCS: 76536; 76705

== ENCOUNTER → 2020-02-17 14:19 | Outpatient (CLI) | payer OTHER, SELFPAY ==
[2018-09-06 13:38] VITALS: BMI 30.2
--- NOTE | 2020-02-17 14:23 | RAD_ITS ---
STUDY: X-RAY - ABDOMEN/PELVIS REASON FOR EXAM: Female, 54 years old. Bloating, abd pain LLQ TECHNIQUE: AP supine and upright views of the abdomen and pelvis. COMPARISON: None. FINDINGS: Normal visualized lung bases. There is an abundance of fecal material throughout the colon. There is no demonstrated free abdominal air. The visualized liver, spleen and kidneys are grossly normal in size and morphology. There are calcified phleboliths in the pelvis. Minimal levoscoliosis. RAD/Abd Inc Decub and/or Erect IMPRESSION: Large amount of fecal material is seen in the colon. Electronically Signed: Jono Dumont, at 14:54 EDT , Service support ,
== END ==
PROVIDERS: PCP Internal Medicine; Referring Provider Internal Medicine Gastroenterology; Visit Provider Internal Medicine Gastroenterology
DX: K59.00 Constipation, unspecified (principal); R10.9 Unspecified abdominal pain
CPT/HCPCS: 74019

== ENCOUNTER → 2020-03-20 12:58 | Outpatient (CLI) | payer OTHER, SELFPAY ==
[2018-09-06 13:38] VITALS: BMI 30.2
--- NOTE | 2020-03-20 13:00 | CT_ITS ---
STUDY: CT ABDOMEN AND PELVIS WITH CONTRAST REASON FOR EXAM: Female, 54 years old. R/O DIVERTICULITIS, LT SIDED ABD PAIN, BLOATING, NAUSEA RADIATION DOSAGE (If Supplied By Facility): CTDIvol = ( 12.78 ) mGy, DLP = ( 593.67 ) mGycm TECHNIQUE: Transaxial images were obtained from the dome of the diaphragm to the symphysis pubis with oral contrast. Oral and amp; IV Breeza and amp; 100mL Isovue-300 was administered. Sagittal and coronal images were reconstructed. Individualized dose optimization techniques were used for this CT. COMPARISON: Comparison is made with prior study dated 02/11/2019. FINDINGS: The visualized lung bases are unremarkable. The visualized portions of the heart are within normal limits. Normal liver. The patient is status post cholecystectomy. Normal spleen. Normal pancreas. Normal bilateral adrenal glands. Normal right kidney. Normal left kidney. Normal visualized stomach. Normal small intestine. There are multiple colonic diverticula consistent with diverticulosis. There is non-visualization of the appendix. Normal abdominal aorta. Normal inferior vena cava. Normal retroperitoneum. Normal urinary bladder. There is absence of the uterus consistent with a prior hysterectomy. Normal abdominal wall. Normal osseous structures. CT/Abdomen/Pelvis WITH Contrast IMPRESSION: Sigmoid diverticulosis. No radiographic evidence of diverticulitis. Electronically Signed: Jono Dumont, at 15:36 EDT , Service support ,
[2020-03-20 13:13] LABS: Erythrocyte Sedimentation Rate 2 mm/hr (0-30)
[2020-03-20 13:14] LABS: Absolute Neutrophil Count 2.6 X10^3/uL (2.0-7.7); Basophil# 0.04 X10^3/uL; Basophil% 0.7 % (0-1); Eosinophil# 0.19 X10^3/uL; Eosinophils% 3.3 % (0-5); Hematocrit 39.4 % (37-47); Hemoglobin 12.7 g/dL (12.0-15.0); Lymphocyte % 44.8 % (19-41); Mean Corp Hgb Conc 32.2 g/dL (32-36); Mean Corpuscular Hgb 28.9 pg (27.0-32.0); Mean Corpuscular Volume 89.7 fL (81-99); Mean Platelet Vol. 10.4 fl (6.2-12.0); Monocyte# 0.33 X10^3/uL; Monocyte% 5.7 % (0-10); NRBC Flagged by Analyzer 0 % (0-5); Neutrophil # 2.64 X10^3/uL (2.7-7.7); Neutrophil % 45.3 % (47-70); Platelet Count 156 K/mm3 (150-450); RBC Distribution Width CV 13.5 % (11.6-14.6); RBC Distribution Width SD 44.1 fl (35.1-43.9); Red Blood Count 4.39 M/mm3 (4.2-5.4); White Blood Count 5.8 K/mm3 (4.4-11.0)
[2020-03-20 13:37] LABS: ALB/GLOB Ratio 1.2 RATIO (0.9-2.4); AST(SGOT) 28 U/L (15-37); Alanine Aminotransfer ALT/SGPT 38 U/L (13-56); Albumin, Serum 3.8 g/dL (3.2-5.0); Alkaline Phosphatase 63 U/L (45-117); Anion Gap 4 (5-15); BUN 21 mg/dL (7-18); BUN/Creat Ratio 28.5 RATIO (10-20); CRP < 2.90 mg/L (0.0-3.0); Calcium,Total 8.8 mg/dL (8.5-10.1); Chloride 105 mmol/L (98-107); Creatinine, Serum 0.74 mg/dL (0.55-1.02); EST Glomerular Filtration Rate 87 mL/min (>60); Est Glom Filt Rate - Afr Amer 106 mL/min (>60); Globulin 3.2 g/dL (2.2-4.2); Glucose 82 mg/dL (74-106); Potassium 3.8 mmol/L (3.5-5.1); Sodium Level 141 mmol/L (136-145)
== END ==
PROVIDERS: PCP Internal Medicine; Referring Provider Internal Medicine; Visit Provider Internal Medicine
DX: R10.32 Left lower quadrant pain (principal)
CPT/HCPCS: 74177; 80053; 85025; 85652; 86140; Q9967

== ENCOUNTER 2020-04-08 08:11 | Day surgery (SDC) | payer OTHER, SELFPAY ==
[2020-03-26 14:01] VITALS: BMI 30.2
[2020-04-08 08:25] VITALS: BP 134/79; PULSE 57; RESP 15; TEMP 36.9; O2SAT 100; BMI 25.6
[2020-04-08] MEDS: Lactated Ringers 1,000 ML 100 ML IV (08:35)
--- NOTE | 2020-04-08 09:10 | HP.PCM_ITS ---
History and Physical Date of Admission: 04/08/20 [facility] [address] [place] [address] OFFICE VISIT Date of Service: 03/26/20 MR#: [id number] Acct: [id number] Name: AMY VALDOVINOS Rep #: [id number] : 1965 Provider: Dr. Raimundo Fairchild MD Age/Sex: 54/F Location: [facility] Status: Signed Intake Vital Signs 03/26/20 Height 5 ft 6.6 in 03/26/20 Weight: 161 lb 03/26/20 BMI 25.4 03/26/20 BP 136/85 H 03/26/20 Blood Pressure Location Rt brachial 03/26/20 Position Sitting 03/26/20 Respiration 18 03/26/20 Pulse 77 03/26/20 Pulse Source Monitor 03/26/20 Temp 98.2 F 03/26/20 Temp Source Temporal 03/26/20 Pulse Oximetry (%) 95 03/26/20 Oxygen Delivery Method room air Intake Visit Reasons: LEFT LOWER QUADRANT PAIN, CSCOPE Chief Complaint: left abdominal pain [employer] Required: No Is patient in pain?: Yes Allergies paroxetine [From Paxil] Allergy (Mild, Verified 03/30/20 09:29) Diarrhea Medications celecoxib 100 mg capsule 100 mg PO DAILY 03/26/20 [History Confirmed 03/30/20] cetirizine 10 mg capsule 10 mg PO DAILY 03/26/20 [History Confirmed 03/30/20] cholecalciferol (vitamin D3) 10 mcg/drop (400 unit/drop) oral drops 10 mcg PO DAILY 03/26/20 [History Confirmed 03/30/20] gabapentin 100 mg capsule 100 mg PO DAILY 03/26/20 [History Confirmed 03/30/20] magnesium oxide 400 mg (241.3 mg magnesium) tablet 400 mg PO DAILY 03/26/20 [History Confirmed 03/30/20] mecobalamin (vitamin B12) 1,000 mcg disintegrating tablet,sublingual 1,000 mcg SUBLINGUAL DAILY 03/26/20 [History Confirmed 03/30/20] omega-3 fatty acids 1,000 mg capsule 1,000 mg PO DAILY 03/26/20 [History Confirmed 03/30/20] [facility] Medical History Abdominal pain (Acute) Arthritis (Acute) Depression with anxiety (Acute) Diverticulosis (Acute) Hemorrhoids (Acute) MGUS (monoclonal gammopathy of unknown significance) (Acute) Surgical History History of hysterectomy (Acute) History of laparoscopic cholecystectomy (Acute) History of left nephrectomy (Acute) History of tubal ligation (Acute) history excision abdominal cysts (Acute) Family History Father Cancer Mother Diabetes Heart disease Social History (Updated 04/08/20 @ 00:[address] Richar Fairchild MD) Smoking Status: Never smoker alcohol intake: never substance use type: does not use HPI HPI HPI: AMY VALDOVINOS, is a 54 F who presents to the office today for HPI HPI Surgical H&P: Yes HPI: AMY VALDOVINOS, is a 54 F who presents to the office today for Evaluation for endoscopy. Patient had a CT scan which showed diverticulosis no infection a significant amount of stool. She has been experiencing pain in her left lower quadrant and going into the pelvis. Her last colonoscopy was in 2012 and was negative. She was started on high Cosamin sulfate used only once did not really notice much of any change. She notes occasional constipation and she has had no dysuria. ROS General General: Yes weight change; no appetite, fatigue, colon cancer, breast cancer or weakness HEENT HEENT: No difficulty swallowing, eye injury, eye surgery, swollen glands or hoarseness Endo Endocrine: No thyroid disease, diabetes mellitus, thyroid cancer, Hair loss, heat intolerance or cold intolerance Skin Skin: No rash or changing moles Breast Breast: No left breast lump, right breast lump, nipple discharge, breast pain, abnormal mammogram, abnormal US or breast enlargement Musc Musculoskeletal: Yes arthritis; no back problems, rheumatoid arthritis, gout or joint pain Cardio Cardiovascular: No murmur, pacemaker, heart disease, atrial fibrillation, high blood pressure, heart attack, heart stent, palpitations, shortness of breat with exertion or chest pain Psych Psychiatric: Yes depression and anxiety; no hearing voices Resp Respiratory: No shortness of breath, No sleep apnea, No cough, No COPD, No asthma, No emphysema, No wheezing Gastro Gastrointestinal: Yes abdominal pain, No nausea or vomiting, No diarrhea, No constipation, No blood in stool, No acid reflux, Yes hemorrhoids, No ulcers, No gallbladder problem, No black,tarry stools Julien Hematologic: No blood thinners, Yes blood disorders, No bleeding, No anemia, No blood clots Neuro Neurologic: No system reviewed and no additional complaints, except as docu, No as per HPI, No abnormal walking, No abnormal hearing, No abnormal movements, No abnormal speech, No behavioral changes, No burning sensations, No confusion, No seizure-like activity, No unsteadiness, No dizziness, No localized weakness, No frequent falls, No headache(s), No lack of coordination, No loss of vision, No memory loss, No numbness, No other visual disturbances, No radiating pain, No restless legs, No sensory deficit, No fainting, No tingling, No tremor(s), No weakness, No other Exam Const General: no acute distress, well developed, well hydrated Orientation: oriented to person, oriented to place, oriented to time [facility] Head: normocephalic, atraumatic Ears: external ears normal Mouth: moist mucous membranes Eyes Sclera: sclerae normal Pupils: normal by confrontation Neck Neck: no lymphadenopathy noted Neck mass: No Thyroid: thyroid normal, symmetrical Chest Chest palpation & inspection: normal inspection of the chest Breast Palpation: No nipple discharge Resp Effort & Inspection: normal respiratory effort Auscultation: clear to auscultation bilaterally Percussion: percussion normal Cardio Rate: regular rate Rhythm: regular rhythm Heart Sounds: no murmurs GI Palpation: soft, no hepatosplenomegaly, no masses, nontender Rectal Exam: other Other: Rectal exam deferred. Extrem General: normal to inspection, no clubbing, cyanosis or edema Assessment & Plan Problems 1. Left lower quadrant abdominal pain R10.32 2. Constipation, unspecified constipation type K59.00 Plan I have discussed the above with the patient. I have offered the patient colonoscopy for evaluation. I have explained the risks/benefits of the procedure and described the procedure. I have discussed the risks with the patient, including but not limited to: infection, bleeding, perforation of the GI tract requiring emergency surgery, inability to complete the procedure, injury to any internal organs, complications of anesthesia, etc. - the patient understands and agrees to proceed. I have answered all the patient's questions to the patient's satisfaction and the patient has no further questions. The patient has been given instructions for the colon cleansing preparation. Orders Orders: Colonoscopy 03/26/20 R10.9 Coding Level of Care Code Off vis,new,level 3 Diagnoses Left lower quadrant abdominal pain R10.32 Constipation, unspecified constipation type K59.00 ??Constipation type: unspecified constipation type COVID (Procedure Consent) Procedure Criteria Procedure Criteria: Yes Elective The surgeon/proceduralist and patient have discussed in detail the risk of exposure to and/or potential harm posed by the COVID-19 virus with having a surgery/procedure at this time versus the risk of? delaying the surgery/procedure. It is not possible to know either the risk of delaying the surgery or procedure or chance of getting an infection with perfect accuracy, but a joint decision was made between the patient and the surgeon/proceduralist ?to proceed at this time with the scheduled surgery/procedure as indicated on the consent form. 04/08/20 0049 <Electronically signed by Richar mcrae MD> Date _ Richar Fairchild MD Cosigner Signature: Date (if applicable) CC: Dr. Marcelle Morales, DO ~ I have re-examined the patient. There are no clinical changes since date of exam.
--- NOTE | 2020-04-08 09:15 | COLBX_PTH ---
PATIENT: AMY VALDOVINOS LOC: EN U#:[id number] AGE/SX: 54/F ROOM: RE04/08/[address]: Dr. Richar Fairchild MD : 1965 BED: DIS: 04/08/2020 SPEC #: [id number] RECD: 04/08/20 10:39 STATUS: ASAD ISMA #: [id number] MILAGROS: 04/08/20 09:[address]: Richar Fairchild DEPT: SURGICAL PATHOLOGY RECD BY: Jose Sommers ENTERED: 04/08/20 11:52 SP TYPE: COLON BX OTHR DR: Dr. Marcelle Morales DO Tissues: COLON BIOPSY Procedures: Surgery Specimen Level IV HEADER OPERATION: Colonoscopy (MAC) PRE-OP DIAGNOSIS: LLQ pain, constipation TISSUE SUBMITTED: Random colonic biopsy MICROSCOPIC DIAGNOSIS Colon, random biopsy: Fragments of colonic mucosa, no pathologic diagnosis. SJ:cecil 04/09/20 MICROSCOPIC DESCRIPTION Slides are reviewed. GROSS DESCRIPTION Received in fixative is one container labeled with the patient's name and designated random colonic biopsy. The specimen consists of multiple irregular fragments of light higuera soft tissue that in aggregate measure 2.5 x 2.5 x 0.1 cm. The specimen is totally submitted in one cassette. / SJ:cecil 04/08/20 TC:4 CPT: 30466
[2020-04-08 09:35] VITALS: BP 103/62; BP 134/79; PULSE 69; RESP 16; TEMP 36.6; O2SAT 97
[2020-04-08 09:39] VITALS: BP 105/64; BP 134/79; PULSE 69; RESP 16; O2SAT 96
--- NOTE | 2020-04-08 09:42 | OP.COLON_ITS ---
Patient Name: Kamryn Ashley Procedure Date: 04/08/2020 9:06 AM Date of : 1965 Age: 54 Procedure: Colonoscopy Indications: Abdominal pain in the left lower quadrant, Constipation Providers: Richar Fairchild MD Referring MD: Marcelle Morales Medicines: See the Anesthesia note for documentation of the administered medications Patient Profile: This is a 54 year old female. Refer to note in patient chart for documentation of history and physical. Last Colonoscopy: 2012. Complications: No immediate complications. Procedure: Pre-Anesthesia Assessment: - Prior to the procedure, a History and Physical was performed, and patient medications and allergies were reviewed. The patient's tolerance of previous anesthesia was also reviewed. The risks and benefits of the procedure and the sedation options and risks were discussed with the patient. All questions were answered, and informed consent was obtained. Prior Anticoagulants: The patient has taken no previous anticoagulant or antiplatelet agents. ASA Grade Assessment: II - A patient with mild systemic disease. After reviewing the risks and benefits, the patient was deemed in satisfactory condition to undergo the procedure. After I obtained informed consent, the scope was passed under direct vision. Throughout the procedure, the patient's blood pressure, pulse, and oxygen saturations were monitored continuously. The adult colonoscope was introduced through the anus and advanced to the cecum, identified by appendiceal orifice and ileocecal valve. The colonoscopy was performed without difficulty. The patient tolerated the procedure well. The quality of the bowel preparation was good. Scope In: 9:16:32 AM Scope Withdrawal Time 0 hours 7 minutes 36 seconds Scope Out: 9:30:38 AM Total Procedure Duration Time 0 hours 14 minutes 6 seconds Findings: Multiple small-mouthed diverticula were found in the sigmoid colon and descending colon. Biopsies for histology were taken with a cold forceps from the entire colon for evaluation of microscopic colitis. Non-bleeding internal hemorrhoids were found during retroflexion. The hemorrhoids were mild and small. The exam was otherwise without abnormality. Impression: - Diverticulosis in the sigmoid colon and in the descending colon. Biopsied. - Non-bleeding internal hemorrhoids. - The examination was otherwise normal. Recommendation: - Discharge patient to home. - Resume previous diet. - Continue present medications. - Await pathology results. - Repeat colonoscopy in 10 years for screening purposes. - Return to my office in 1 week. Procedure Code(s): --- Professional --- 34836, Colonoscopy, flexible; with biopsy, single or multiple Diagnosis Code(s): --- Professional --- K64.8, Other hemorrhoids R10.32, Left lower quadrant pain K59.00, Constipation, unspecified K57.30, Diverticulosis of large intestine without perforation or abscess without bleeding CPT copyright 2017 [employer]. All rights reserved. The codes documented in this report are preliminary and upon stoper review may be revised to meet current compliance requirements. MD Richar Noonan MD 04/08/2020 9:42:08 AM This report has been signed electronically. Number of Addenda: 0 Note Initiated On: 04/08/2020 9:06 AM
--- NOTE | 2020-04-08 09:42 | OP.CCLET_ITS ---
04/08/2020 Marcelle Morales Re : Colonoscopy procedure for Kamryn Morales This procedure was performed on Wednesday, April 08, 2020. My impressions and recommendations are as follows: Impressions : - Diverticulosis in the sigmoid colon and in the descending colon. Biopsied. - Non-bleeding internal hemorrhoids. - The examination was otherwise normal. Recommendations : - Discharge patient to home. - Resume previous diet. - Continue present medications. - Await pathology results. - Repeat colonoscopy in 10 years for screening purposes. - Return to my office in 1 week. My findings are described in the full procedure note, which is enclosed. If I can be of further assistance, please feel free to contact me at Doctor phone number(s): , Fax: [phone], Work: . Sincerely, MD Richar Noonan MD 04/08/2020 9:42:08 AM This report has been signed electronically.
[2020-04-08 09:44] VITALS: BP 114/67; BP 134/79; PULSE 67; RESP 16; O2SAT 97
[2020-04-08 09:46] VITALS: BP 105/70; BP 134/79; PULSE 69; RESP 16; TEMP 36.6; O2SAT 97
[2020-04-08 10:12] VITALS: BP 134/79
== END 2020-04-08 10:24 | disposition home or self-care (01) ==
LOC: EN 08:12 → AC 08:12
PROVIDERS: Anesthesiology; PCP Internal Medicine; Referring Provider Internal Medicine; Visit Provider Surgery
PROC: 0DJD8ZZ Inspection of Lower Intestinal Tract, Via Natural or Artificial Opening Endoscopic (ICD-10-PCS; CPT 45378; principal; 2020-04-08 09:10)
DX: K64.8 Other hemorrhoids (principal); K59.00 Constipation, unspecified; K57.30 Diverticulosis of large intestine without perforation or abscess without bleeding; Z11.59 Encounter for screening for other viral diseases; M19.90 Unspecified osteoarthritis, unspecified site; F41.8 Other specified anxiety disorders; Z79.899 Other long term (current) drug therapy
CPT/HCPCS: 45380; 87635; 88305; 94799; J7120; J1610; J2405; U0003

== ENCOUNTER → 2020-07-07 12:46 | Outpatient (CLI) | payer OTHER, SELFPAY ==
--- NOTE | 2020-07-07 12:48 | ECHOD_ITS ---
Reason For Study: Murmur Procedure This was a 2D Doppler, Color Flow transthoracic echocardiogram. Exam performed in department. Left Ventricle Normal LV size. Mild concentric left ventricular hypertrophy. Apical false tendon noted. Left ventricular systolic function is normal. The estimated ejection fraction is 55 %. Diastolic function is indeterminate. No regional wall motion abnormalities noted. Right Ventricle Normal RV size. Normal systolic function. Atria The left atrium is mildly enlarged. The right atrium is mildly enlarged. No doppler evidence for ASD. Mitral Valve There is no mitral annular calcification. Mild diffuse mitral valve thickening. Mild mitral valve prolapse, posterior leaflet. Mild (1+) mitral valve insufficiency. Tricuspid Valve Normal tricuspid valve. Mild tricuspid valve insufficiency. Right ventricular systolic pressure estimated to be 23 mmHg. Aortic Valve Trisinus/trileaflet aortic valve. Normal aortic valve. Pulmonic Valve The pulmonic valve is not well visualized. Trivial pulmonic valve insufficiency. Great Vessels Normal sized aortic root. Pericardium/Pleural No pericardial effusion. MMode/2D Measurements & Calculations LVIDd: 5.3 cm IVSd: 1.3 cm Ao root diam: 3.3 cm LVIDs: 3.7 cm LVPWd: 1.4 cm LA dimension: 4.4 cm RVDd: 3.8 cm FS: 29.7 % LAV(MOD-bp): 64.7 ml LA A4 area: 20.1 cm2 RA A4 area: 21.1 cm2 LAV(MOD-bp) Indexed: 35.0 ml/m2 LAV(MOD-sp2): 61.8 ml LAV(MOD-sp4): 62.8 ml Time Measurements MV dec time: 0.32 sec Doppler Measurements & Calculations MV E max nicolás: 78.7 cm/sec Lat Peak E' Nicolás: 8.6 cm/sec Med Peak E' Nicolás: 6.8 cm/sec MV A max nicolás: 97.6 cm/sec E/E' lat: 9.2 E/E' med: 11.6 MV E/A: 0.81 MV V2 max: 103.4 cm/sec MV P1/2t max nicolás: 81.6 cm/sec Ao V2 max: 189.2 cm/sec MV max P.3 mmHg MV P1/2t: 136.9 msec Ao max P.3 mmHg MV V2 mean: 55.4 cm/sec MV dec slope: 174.7 cm/sec2 MV mean P.4 mmHg MVA(P1/2t): 1.6 cm2 MV V2 VTI: 40.8 cm LV V1 max: 100.5 cm/sec MR max nicolás: 596.4 cm/sec PA V2 max: 77.0 cm/sec LV V1 max P.0 mmHg MR max P.3 mmHg MR mean nicolás: 446.8 cm/sec MR mean P.5 mmHg MR VTI: 277.3 cm TR max nicolsá: 223.0 cm/sec TR max P.9 mmHg Interpretation Summary Left ventricular systolic function is normal. The estimated ejection fraction is 55 %. Mild concentric left ventricular hypertrophy. Apical false tendon noted. The left atrium is mildly enlarged. The right atrium is mildly enlarged. Mild diffuse mitral valve thickening. Mild mitral valve prolapse, posterior leaflet Mild (1+) mitral valve insufficiency. Mild tricuspid valve insufficiency. Trivial pulmonic valve insufficiency. Right ventricular systolic pressure estimated to be 23 mmHg. Diastolic function is indeterminate. Ordering Physician: Marcelle Morales Referring Physician: Marcelle Morales Performed By: Aris Yin RCS
== END ==
PROVIDERS: PCP Internal Medicine; Referring Provider Internal Medicine; Visit Provider Internal Medicine
DX: R01.1 Cardiac murmur, unspecified (principal)
CPT/HCPCS: 93306

== ENCOUNTER → 2020-08-17 16:59 | Outpatient (CLI) | payer OTHER, SELFPAY ==
--- NOTE | 2020-08-17 17:05 | RAD_ITS ---
STUDY: X-RAY - RIGHT KNEE REASON FOR EXAM: Female, 55 years old. Right knee pain. TECHNIQUE: 4 view(s) of the knee. COMPARISON: None. FINDINGS: There is demineralization of the visualized distal femur. There is demineralization of the tibia and fibula. There is arthrosis of the proximal tibiofibular articulation. There is no demonstrated fracture. Large spur at the upper patella. There is moderate degenerative arthrosis of the medial femorotibial compartment with moderate joint space narrowing. There is mild to moderate degenerative arthrosis of the lateral femorotibial compartment. There is moderate to severe degenerative arthrosis of the patellofemoral articulation. There is joint effusion. The soft tissue structures are unremarkable. RAD/Knee 4 or More Views IMPRESSION: Degenerative disease as described. Joint effusion. No acute fracture or subluxation. Electronically Signed: Maye Morse MD at 3:12 EST , Service support ,
--- NOTE | 2020-08-17 17:05 | RAD_ITS ---
STUDY: X-RAY - PELVIS AND RIGHT HIP REASON FOR EXAM: Female, 55 years old. Right hip pain. TECHNIQUE: 3 views of the pelvis and hip. COMPARISON: None. FINDINGS: There is a non-specific bowel gas pattern. Normal visualized soft tissue structures. There are multiple calcified phleboliths. There is narrowing with cortical sclerosis and osteophyte formation of the sacroiliac joint consistent with degenerative osteoarthritic changes. Normal bilateral superior and inferior pubic rami. There are degenerative changes of the pubic symphysis with articular narrowing and sclerosis. Normal bilateral ischial tuberosities. Normal visualized femoral head. There is mild osteoarthritic spur formation of the acetabular rim. There is mild articular joint space narrowing of the hip. RAD/HIP, UNI W/ Pelvis 2-3 Views IMPRESSION: Degenerative disease of bilateral hips, SI joints and pubic symphysis. No acute fracture or subluxation. Electronically Signed: Maye Morse MD at 2:57 EST , Service support ,
== END ==
PROVIDERS: PCP Internal Medicine; Referring Provider Internal Medicine; Visit Provider Internal Medicine
DX: M25.551 Pain in right hip (principal)
CPT/HCPCS: 73502; 73564

== ENCOUNTER 2020-10-19 11:30 | Outpatient (RCR) | payer OTHER, SELFPAY ==
--- NOTE | 2020-09-08 11:54 | HP.PTEVAL_ITS ---
Patient's Visit Information AMY VALDOVINOS is a 55 year old F referred to Physical Therapy by Dr. Marcelle Morales DO with a diagnosis of R knee pain, R hip pain. Date of Evaluation: 09/08/20 Physical Therapist: Iglesia Pond, DPT, OCS, CSCS - Visit Plan Frequency: 3x /Week Duration: 4-6 Weeks Plan: 3x/week for 3-6 weeks for : monitor effects of home l/s ext ex given today. rollout and stretch R ITB, quad and HS. progress strengthen of R hip, R quad and core. Pt has ex program she will bring with her next time adn please review for pain, effectiveness adn appropriateness. May consider water therapy if not improved in 3 weeks. - Subjective R knee and hip continue to hurt. Had PT last spring adn got better but now worse again. 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 Has pain both hip and knee. Has had knee drained. Doing clamshells and bridges now but had backed off of them. 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 Does weight training 3x weekly and works with [employer] and [employer]. Stairmaster has been stopped as it causes her pain. Knee hurts intermittently, R posterior hip is more constant. Hip is up to 7/10 and knee is up to 7/10. Not sure why they get worse.. Has had x-rays in hip and knee and they both are degenerated. Dr. Morales may send to ortho but wanted PT first. Sleep is OK right now. Dr. Moulton gave her a cortisone shot in knee whcih helped, that was in the last couple weeks. 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 Up and moving is generally worse. Activities are getting done but she avoids running. Knee fees weak at times, scared it might give. Doing abd and add machines in gym and [employer], heel raises, banded walks, bridgin, clamshells. squats.avoids lunges. - Pain R knee Pain Intensity (Out of 10): 0 Pain Intensity Range: 0, 7 R posthip Pain Intensity (Out of 10): 2 Pain Intensity Range: 0, 7 - Objective Walks normally and I. Trasnfers normal. Steps are I with some IR at B femur adn adduction noticeable. Squats are painfree today but hesitant adn take a lot of focus. R knee AROM -2 to 130 AROM, some pain with bounce home. L knee is 0- 135. R hip and L hip symmetrical ROM without pain. R ITB, quad and HS slightly tighter than L. LB AROM ext mod limited and painful R PSIS, flexion adn SB are fulla dn painfree. reflexes 0/3 patella adn achilles. Sensation LE WNL to gross light touch. Strength: hip abd and rotation 4- R adn L. flexion 4 B. knee ext 4- R adn 4 L, HSC 4 B. ankles movement symmetrical and strength symmetrical at 4/5 R to L. Tender R knee patella medial and medial joint line. Soft tissue in R hip posterior and lateral unremarkable. - Goals Goal 1:: Pt complete workout reviewed adn I in appropriate detention workout to strengthen R quad and hip/core adn stretch R LE and Lumbar extension. Goal Time Frame: 4-6 Weeks Goal 2:: Pt pain in knee 0-3/10 adn R hip 0-1/10 and 75% better overall. 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 Goal Time Frame: 4-6 Weeks Goal 4:: steps without pain regularly at home and workout. Goal Time Frame: 4-6 Weeks - Rehabilitation Potential Physical Therapy Diagnosis: R knee degneration, R post hip pain possibly sciatic in nature. Rehabilitation Potential: Fair - Anticipated Interventions Patient/Client Instruction: Educate patient on: Condition, Plan of Care For the Purpose of:: To decrease pain, To improve muscle performance and motor function Therapeutic Exercise to Include: Strength training, Flexibilty training, Gait and locomotor training, Passive ROM, Active ROM For the Purpose of:: To decrease pain, To increase ROM, To improve muscle performance and motor function, To increase tolerance to activity/condition/position, To improve ability of physical actions for home/community/work/leisure Manual Therapy Techniques to Include: Soft tissue mobilization For the Purpose of:: To increase ROM Thank you for the opportunity to evaluate your patient. For Medicare and Medicare HMO plans, please review the plan of care and approve it. It will need to be FAXED BACK to us at [phone] for Medicare purposes. For Medicare only, by signing this I certify the plan of care. Please let me know if there are questions or concerns regarding this plan of care. Physician Signature: Date:
--- NOTE | 2020-10-02 12:35 | HP.PTREVAL_ITS ---
Dr. Marcelle Morales, DO, It has been my pleasure to treat AMY VALDOVINOS over the last 9 visits for R knee pain, R hip pain. Please see the progress note below for an update on the physical therapy plan of care! Subjective: I think I am doing better. Legs still weak. R knee pain 1-2/10 lately. R hip has been doing really good. Still avoids stairmaster at least by 50%. Will continue gym ex and home ex for strengthening. Back script today: Back pain clicking in spine and up to shoulder blades. Been there about a month insidiously. New pain. In car moving and jiggling and sometimes just sitting adn it can start hurting. Pain will linger. 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 Moving around is better. No numbness or tingling that is new to this. Been doing pressups which seem to help. Sleep is OK with back. Sitting activities are the worst. Objective/Function: Knee adn hip improving, wit tight in quad and ITB, strength and function improving. LB: AROM LB mod limited in ext lumbar and max in thoracic ext, flexion and SB are full. Posture is kyphotic in thoracic spine, mild tenderness L thoracic paraspinals. Plan Plan: 2x/week for 2-4 weeks for. 1. thoracic ext mobs and stretching into ext. 2. core strength(gym back ext adn flexion and mat core strength progressing to I program. 3. pt to cotninue hip and knee strength adn monitor progress. Recheck all after 4 visits. Goals Goal 1:: Pt complete workout reviewed adn I in appropriate intermission coordinator workout to strengthen R quad and hip/core adn stretch R LE and Lumbar extension. Goal Time Frame: 4-6 Weeks Goal Progress: Goal Met Goal 2:: Pt pain in knee 0-3/10 adn R hip 0-1/10 and 75% better overall. Goal Time Frame: 4-6 Weeks Goal Progress: pain, 50% better. 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 Goal Time Frame: 4-6 Weeks Goal Progress: Goal Met Goal 4:: steps without pain regularly at home and workout. Goal Time Frame: 4-6 Weeks Goal Progress: Goal Met Goal 5:: back pain abolished for 4 days Goal Time Frame: 2-4 Weeks Goal Progress: NEW GOAL Goal 6:: Pt I in appropriate management of back pain ex. Goal Time Frame: 2-4 Weeks Goal Progress: NEW GOAL Anticipated Interventions Patient/Client Instruction: Educate patient on: Condition, Plan of Care For the Purpose of:: To decrease pain, To improve muscle performance and motor function Therapeutic Exercise to Include: Strength training, Flexibilty training, Gait and locomotor training, Passive ROM, Active ROM For the Purpose of:: To decrease pain, To increase ROM, To improve muscle performance and motor function, To increase tolerance to activity/condition/position, To improve ability of physical actions for home/community/work/leisure Manual Therapy Techniques to Include: Soft tissue mobilization For the Purpose of:: To increase ROM Please do not hesitate to contact me at [phone] by phone or Fax: if you have questions or concerns regarding this new plan of care! Sincerely, Iglesia Pond, DPT, OCS, CSCS
--- NOTE | 2020-10-19 12:19 | HP.PTDCSUM_ITS ---
It has been my pleasure to treat AMY VALDOVINOS referred by Dr. Marcelle Morales DO, with the diagnosis of R knee pain, R hip pain for a total of 12 visit(s). Discharge Date: 10/19/20 Please see the following information for a summary of their discharge status. Subjective: Better, still have some pain but better. 0-2/10 worse with working out. Rest of day pretty good. [facility] To [facility] November. Sometimes stretches and sometimes not. R knee Pain Intensity (Out of 10): 1 R posthip Pain Intensity (Out of 10): 2 back pain Pain Intensity (Out of 10): 0 % Improvement: 70 Objective/Function: L/S AROM WFL adn without pain today. Walking nomral and without pain or antalgia. Goal 1:: Pt complete workout reviewed adn I in appropriate parts counterman workout to strengthen R quad and hip/core adn stretch R LE and Lumbar extension. Goal Progress: Goal Met Goal 2:: Pt pain in knee 0-3/10 adn R hip 0-1/10 and 75% better overall. Goal Progress: pain, 70% better. 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 Goal Progress: Goal Met Goal 4:: steps without pain regularly at home and workout. Goal Progress: Goal Met Goal 5:: back pain abolished for 4 days Goal Progress: Goal Met Goal 6:: Pt I in appropriate management of back pain ex. Goal Progress: Goal Met Plan: d/c If there are questions or concerns regarding this patient's physical therapy, please feel free to call me at [phone]. Thank you for the referral of this patient. Sincerely, Iglesia Pond, DPT, OCS, CSCS
== END 2020-10-19 19:00 | disposition home or self-care (01) ==
LOC: PT 11:30
PROVIDERS: PCP Internal Medicine; Visit Provider Internal Medicine
DX: M25.561 Pain in right knee (principal); M25.559 Pain in unspecified hip; M19.90 Unspecified osteoarthritis, unspecified site
CPT/HCPCS: 97110; 97140; 97162; 97164; 97530

== ENCOUNTER → 2020-10-20 10:24 | Outpatient (CLI) | payer OTHER, SELFPAY ==
--- NOTE | 2020-10-20 10:26 | BI_ITS ---
MAMMOGRAPHY - BILATERAL SCREENING REASON FOR EXAM: Female, 55 years old. Routine annual screening examination. PERTINENT HISTORY: Non-contributory. TECHNIQUE: Digital bilateral breast kisha (3D mammographic acquisition) in the CC and MLO projections. 2-D mediolateral oblique (MLO) and craniocaudad (CC) views of both breasts were obtained. CAD: Full Field Digital Mammography with Computer Added Detection was performed. COMPARISON: Comparison is made with prior study dated 10/17/2019 and 10/04/2018. FINDINGS: Breast Composition: There are scattered areas of fibroglandular density. There are no dominant masses or suspicious calcifications. Benign-appearing bilateral axillary lymph nodes. Stable asymmetric breast tissue where more breast tissue is seen in the upper outer quadrant of the right breast. No other significant abnormalities are identified. There has been no significant change since the prior study. BI/SCRN MAMM (CAD)W/KISHA BILAT IMPRESSION: Stable bilateral screening mammogram. Yearly follow-up mammogram recommended. (A) ASSESSMENT CATEGORY: BIRADS Category 2: Benign. A letter regarding these results will be sent to the patient by the facility within 30 days. Approximately 10% of breast cancers are not detected by mammography. A normal mammogram should not delay biopsy of a clinically suspicious abnormality. [id number] Electronically Signed: Jono Dumont MD at 11:15 EST , Service support ,
--- NOTE | 2020-10-20 10:28 | BD_ITS ---
STUDY: DUAL ENERGY X-RAY ABSORPTIOMETRY / DXA REASON FOR EXAM: Female, 55 years old. [id number] TECHNIQUE: Bone Mineral Density (BMD) measurements of lumbar spine and bilateral hips were obtained. COMPARISON: Comparison is made with prior study dated 10/04/2018. FINDINGS: Lumbar Spine (L1-L4): g/cm2 (1.133) / T-score (-0.4) / Z-score (0.4) Findings are suggestive of normal bone density with a low fracture risk. Left Femur Total: g/cm2 (1.038) / T-score (0.2) / Z-score (0.9) Left Femoral Neck: g/cm2 (1.022) / T-score (-0.1) / Z-score (0.9) Right Femur Total: g/cm2 (0.991) / T-score (-0.1) / Z-score (0.5) Right Femoral Neck: g/cm2 (0.979) / T-score (-0.4) / Z-score (0.6) The T-Scores on the most recent prior examination were: Lumbar Spine (L1-L4): There has been worsening of bone density since the previous examination. Left Femur Total: which represents a worsening of 11.9%. Right Femur Total: which represents a worsening of 60%. BD/Dexa Bone Density Study IMPRESSION: The patient is considered normal as outlined below according to World Carlos Organization (WHO) criteria with a low fracture risk. There has been worsening of bone density since the previous examination. Reference Information: The T-score is the number of standard deviations above or below the standard which is normal for young adults at their peak bone mineral density. The World Health Organization (WHO) interprets the T-scores as follows: Above -1 Normal bone density Between -1 and -2.5 Osteopenia Equal to / or below -2.5 Osteoporosis As a practical clinical guideline, osteopenia may be graded as follows: Mild -1 through -1.5 Moderate -1.6 through -2.0 Severe -2.1 through -2.4 The Z-score is the number of standard deviations above or below age-matched controls. A Z-score of less than -1.5 would be considered abnormal. References: 1. NIH Osteoporosis and Related Bone Diseases www osteo.org 2. International Society for Clinical Densitometry www iscd.org 3. National Osteoporosis Foundation www nof.org Electronically Signed: Jono Dumont MD at 14:28 EST , Service support ,
== END ==
PROVIDERS: PCP Internal Medicine; Referring Provider Internal Medicine; Visit Provider Internal Medicine
DX: Z12.31 Encounter for screening mammogram for malignant neoplasm of breast (principal); Z78.0 Asymptomatic menopausal state
CPT/HCPCS: 77063; 77067; 77080

== ENCOUNTER → 2020-12-31 10:50 | Outpatient (CLI) | payer OTHER, SELFPAY ==
--- NOTE | 2020-12-31 10:52 | VDLE_ITS ---
Reason For Study: Pain RIGHT GSV is normal. CFV is compressible, spontaneous, phasic, competent and demonstrates normal augmentation. FV is compressible, spontaneous, phasic, competent and demonstrates normal augmentation. POP V is compressible, spontaneous, phasic, competent and demonstrates normal augmentation. T/P Trunk is compressible. PTV is compressible. RT PerV is compressible. Procedure This is a venous duplex using B-mode, color flow and spectral Doppler. Exam performed in department. A preliminary report was called and/or faxed to Andrew. VL/Venous Duplex US, Unilateral Interpretation Summary Deep veins of the right lower extremity are patent and compressible segmentally . There is no evidence of right lower extremity deep vein thrombosis. Valvular competence sandra ears intact within the proximal deep venous system on the right . The right great saphenous vein a ppears patent and compressible segmentally. Ordering Physician: Marcelle Morales Referring Physician: Marcelle Morales Performed By: Lucinda Valdez RVT
== END ==
PROVIDERS: PCP Internal Medicine; Referring Provider Internal Medicine; Visit Provider Internal Medicine
DX: M79.604 Pain in right leg (principal)
CPT/HCPCS: 93971

== ENCOUNTER → 2021-01-16 08:54 | Outpatient (CLI) | payer OTHER, SELFPAY ==
--- NOTE | 2021-01-16 08:59 | US_ITS ---
STUDY: THYROID ULTRASOUND REASON FOR EXAM: Female, 55 years old. MULTIPLE THYROID NODULES- F/U TECHNIQUE: Ultrasound evaluation of the thyroid was performed with real-time and static acharya-scale imaging. COMPARISON: 01/20/2020 FINDINGS: RIGHT LOBE: The right lobe of the thyroid gland measures 5.7 x 2.6 x 2.0 cm. There is a heterogeneous echotexture. Nodule 1: No change in a 10 x 4 x 10 mm mixed cystic and solid isoechoic wider than tall smoothly marginated nodule with no echogenic foci (TR 2) in the mid right lobe. Nodule 2: No change in the 14 x 11 x 12 mm solid isoechoic wider than tall ill-defined marginated nodule with no echogenic foci (TR 3) in the posterior right lobe consistent with an adenoma. Nodule 3: No change in the 18 x 15 x 18 mm solid isoechoic wider than tall ill-defined marginated nodule with no echogenic foci (TR 3) is in the posterior right lobe and follow-up ultrasound is recommended in one year. LEFT LOBE: The left lobe of the thyroid gland measures 5.4 x 1.9 x 1.5 cm. There is a homogeneous echotexture. Nodule 4: No change in the 8 x 6 x 8 mm solid isoechoic wider than tall ill-defined marginated nodule with no echogenic foci (TR 3) in the mid left lobe consistent with an adenoma. ISTHMUS: The isthmus measures 3 mm thick. . The regional lymph nodes are normal. US/Thyroid IMPRESSION: No change in multinodular goiter. Follow-up ultrasound is recommended in one year. Electronically Signed: Frank Tinajero MD at 7:29 EDT Tel , Service support ,
--- NOTE | 2021-01-16 08:59 | US_ITS ---
EXAM: US ABDOMEN LIMITED, RIGHT UPPER QUADRANT CLINICAL INDICATION: FATTY LIVER TECHNIQUE: Real-time ultrasound of the right upper quadrant with image documentation. This report was created using [employer]ome[employer] report generation technology. COMPARISON: 01/20/2020. FINDINGS: LIVER: Unremarkable. There is normal echotexture. No focal hepatic lesion. No intrahepatic biliary ductal dilation. GALLBLADDER: Cholecystectomy. COMMON BILE DUCT: Unremarkable as visualized. The proximal common bile duct is within normal limits for the patient''s age. PANCREAS: Unremarkable as visualized. No focal abnormality is demonstrated in the pancreas. No pancreatic ductal dilatation. RIGHT KIDNEY: Subcentimeter simple cyst of the right kidney measures 7 mm. Benign; no imaging follow-up recommended. There is no hydronephrosis. No shadowing calculus. US/Liver IMPRESSION: No hepatic masses or biliary dilation. Electronically Signed: Malcom Emmanuel MD ([place]) at 15:47 EDT , Service support ,
== END ==
PROVIDERS: PCP Internal Medicine; Referring Provider Internal Medicine; Visit Provider Internal Medicine
DX: E04.2 Nontoxic multinodular goiter (principal); K76.0 Fatty (change of) liver, not elsewhere classified
CPT/HCPCS: 76536; 76705

== ENCOUNTER → 2021-03-16 | Outpatient (CLI) | payer OTHER, SELFPAY ==
[2021-03-16 12:42] LABS: Absolute Neutrophil Count 3.2 X10^3/uL (2.0-7.7); Basophil# 0.04 X10^3/uL; Basophil% 0.7 % (0-1); Eosinophil# 0.18 X10^3/uL; Erythrocyte Sedimentation Rate 2 mm/hr (0-30); Hematocrit 42.6 % (37-47); Hemoglobin 13.6 g/dL (12.0-15.0); Lymphocyte % 37.9 % (19-41); Mean Corp Hgb Conc 31.9 g/dL (32-36); Mean Corpuscular Volume 87.8 fL (81-99); Mean Platelet Vol. 10.1 fl (6.2-12.0); Monocyte# 0.31 X10^3/uL; Monocyte% 5.1 % (0-10); NRBC Flagged by Analyzer 0 % (0-5); Neutrophil # 3.22 X10^3/uL (2.7-7.7); Platelet Count 192 K/mm3 (150-450); RBC Distribution Width CV 13.4 % (11.6-14.6); RBC Distribution Width SD 43.1 fl (35.1-43.9); Red Blood Count 4.85 M/mm3 (4.2-5.4); White Blood Count 6.1 K/mm3 (4.4-11.0)
[2021-03-16 13:06] LABS: ALB/GLOB Ratio 1.2 RATIO (0.9-2.4); AST(SGOT) 23 U/L (15-37); Alanine Aminotransfer ALT/SGPT 35 U/L (13-56); Alkaline Phosphatase 68 U/L (45-117); Anion Gap 3 (5-15); BUN 20 mg/dL (7-18); BUN/Creat Ratio 29.5 RATIO (10-20); CRP < 2.90 mg/L (0.0-3.0); Calcium,Total 8.8 mg/dL (8.5-10.1); Chloride 105 mmol/L (98-107); Creatinine, Serum 0.68 mg/dL (0.55-1.02); EST Glomerular Filtration Rate 95 mL/min (>60); Est Glom Filt Rate - Afr Amer 115 mL/min (>60); Globulin 3.2 g/dL (2.2-4.2); Glucose 80 mg/dL (74-106); LDH 170 U/L (84-246); Potassium 4.1 mmol/L (3.5-5.1); Protein, Total 7.2 g/dL (6.4-8.2); Sodium Level 140 mmol/L (136-145)
[2021-03-17 21:08] LABS: EBV Acute VCA IgM < 36.0 U/mL (0.0-35.9); EBV-VCA IgG > 600.0 U/mL (0.0-17.9)
== END | disposition home or self-care (01) ==
LOC: LABSPEC 12:17
PROVIDERS: PCP Internal Medicine; Referring Provider Internal Medicine; Visit Provider Internal Medicine
DX: R10.32 Left lower quadrant pain (principal)
CPT/HCPCS: 80053; 83615; 85025; 85652; 86140; 86664; 86665

== ENCOUNTER → 2021-03-26 13:45 | Outpatient (CLI) | payer OTHER, SELFPAY ==
--- NOTE | 2021-03-26 13:53 | CT_ITS ---
INDICATION: DIVERTICULITIS/LLQ PAIN EXAMINATION: CT Abdomen And Pelvis W/ Contrast Injection TECHNIQUE: Helically acquired images were obtained of the abdomen and pelvis after IV contrast. A radiation dose optimization technique was used for this scan. IV Contrast dosage and agent: Oral and amp; IV Readi-CAT and amp; 100mL Isovue-300 Oral contrast: Yes. COMPARISON: None. FINDINGS: Visualized lung bases: Unremarkable Liver: Unremarkable Gallbladder: Surgically absent. Spleen: Unremarkable Pancreas: Unremarkable Adrenal Glands: Unremarkable Kidneys: Partial left nephrectomy. Vasculature: Unremarkable GI Tract: Scattered diverticula throughout the colon without evidence of inflammation. Lymphadenopathy: None Peritoneum: No ascites. Bladder: Unremarkable Reproductive organs: Status post hysterectomy. Bones/Soft tissues: No suspicious osseous or soft tissue lesions CT/Abdomen/Pelvis WITH Contrast IMPRESSION: No acute abnormalities in the abdomen or pelvis. Diverticulosis without evidence of diverticulitis. Electronically Signed: Terry Jacome MD at 17:28 EDT Tel , Service support ,
== END ==
PROVIDERS: PCP Internal Medicine; Referring Provider Internal Medicine; Visit Provider Internal Medicine
DX: R10.32 Left lower quadrant pain (principal)
CPT/HCPCS: 74177; Q9967

== ENCOUNTER 2021-05-20 11:00 | Outpatient (RCR) | payer OTHER, SELFPAY ==
--- NOTE | 2021-04-13 11:02 | HP.PTEVAL ---
Patient's Visit Information AMY VALDOVINOS is a 55 year old F referred to Physical Therapy by Dr. Marcelle Morales DO with a diagnosis of CERVICAL RADICULOPATHY. Date of Evaluation: 04/13/21 Physical Therapist: Deisy Piedra PT, Cert MDT - Visit Plan Frequency: 2-3x /Week Duration: 4-6 Weeks Plan: CONSIDER US. POSTURE CORRECTION/STRENGTHENING, INSTRUCTION IN APPROPRIATE BODY MECHANICS AND ACTIVITY MODIFICATIONS. GRANT UE ROM, STRETCHING AND STRENGTHENING. HEP INSTRUCTION. - Subjective Diagnosis: CERVICAL RADICULOPATHY. 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 SOME OF THE WORK CAN BE HEAVY. Disability: NO. Present symptoms: HEADACHES WEEKLY. NO NECK PAIN. LEFT SHLD BLADE PAIN. GRANT UE SX'S L > R NUMBNESS AND TINGLING INTERMITTENTLY IN THE ARMS, FOREARMS AND FINGER TIPS. CLICKING IN NECK AND UPPER BACK WITH WEIGHT LIFTING THAT STARTED IN THE spring AND KEPT GETTING WORSE UNTIL STOPPED LIFTING ABOUT 3 WEEKS AGO. CHRONIC LOW BACK AND RIGHT LEG SX'S X ABOUT 3 YEARS. Present since: spring. Pain Scale: HEAD: Worst - 6/10 Least - 0/10. Currently: 10. Commenced as a result of: NO APPARENT REASON. Symptoms at onset: LEFT SHLD BLADE. Worse: CERTAIN WEIGHT MACHINES LIKE TWISTING AND FLYS. RANDOM FLARE UPS. SOMETIMES GENERAL ACTIVITY MAKES IT WORSE. Better: HOT SHOWER, RESTING LYING DOWN. Disturbed sleep: NOT NOW BUT WAS WAKING UP EVERY COUPLE HOURS A FEW WEEKS AGO. Previous history/Previous treatment: UNREMARKABLE. This episode: UNREMARKABLE. Dizziness: YES - NOT NEW BUT PATIENT THINKS IT HAS GOT WORSE. Tinnitis: YES - NOT NEW. Nausea: SOMETIMES - MAYBE NEW WITH HEADACHES. Shortness of Breath: NO. Difficulty Swollowing: NO. Gait: NOT FALLING. DOES NOT USE ANY ASSISTIVE DEVICES. Accidents: NO. Unexplained weight loss: NO. Imaging: RECENT NECK X-RAYS FEBRUARY 2021: Marked degree of this space narrowing with spondylosis at the C5-C6 level. Anterior spondylosis at the C4-C5 and C6-C7 levels. 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 SEVERAL ABDOMINAL SURGERIES FOR VERY LARGE CYSTS THAT WERE BENIGN. HYSTERECTOMY ABOUT 15 YEARS AGO. TAKES GABAPENTIN FOR R FOOT. CELEBREX FOR ARTHRITIS FOR A FEW YEARS. CHOLESTEROL MEDICINE. OTHER: [employer] AND WAS WORKING OUT 6 DAYS A WEEK UNTIL SCHOOL STARTED BUT NOW 4 DAYS A WEEK. 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 PERSONAL TRAINGING ABOUT ONCE A WEEK ALSO. - Objective Sitting Posture/Standing Posture: POOR. FH. RS'S. Active Correction of posture: NE. Other Observations: INDEP GAIT AND TRANSFERS. Motor deficit: GRANT MATERNAL FETAL PHYSICIAN STRENGTH 30 LBS. GRANT UE'S 5/5 EXCEPT SCAPULAE 4/5. Sensory deficit: GRANT UE LIGHT TOUCH SENSATION INTACT AND SYMMETRICAL. ROM deficit: GRANT UE'S WFL. Reflexes: UNABLE TO ELICIT GRANT UE'S DTR'S. Dural Signs: POSITIVE GRANT UE'S. Cervical Mvmt Loss: Flex: MIN. Pro: NIL. Ext: MOD. Ret: MOD. RSB: MOD. LSB: MOD. R Rot: MOD. L Rot: MOD. PATIENT C/O PAIN IN THE BACK OF HER HEAD AND UPPER BACK BACK WITH CERVICAL ROM TESTING ALL PLANES. SHE ALSO REPORTED FEELING SOME CRACKING IN THE BACK OF HER HEAD WITH PROTRACTION TESTING. PATIENT ALSO HAD C/O MILD INCREASE IN HEADACHE AFTER CERVICAL ROM TESTING. Postural strength: FAIR. Palpation: INCREASED MUSCLE TONE GRANT POSTERIOR CERVICAL MUSCULATURE AND TENDERNESS WITH LIGHT PALPATION OF THE UPPER CERVICAL SPINE. OTHER: PATIENT IS SLOW TO GIVE HISTORY WITH QUESTIONING AND SEEMS UNSURE OF SOME OF HER ANSWERS. TREATMENT: NEUROMUSCULAR REEDUCATION - RETRAINING OF MVMT AND POSTURE FOR SITTING, LYING AND STANDING ACTIVITIES. - Balance/Special Test Scores Oswestry Neck Score: 9 - Goals Goal 1:: DECREASE C/O NECK, UPPER BACK AND GRANT UE SX'S. Goal Time Frame: 4-6 Weeks Goal 2:: IMPROVE LIFTING, SLEEP AND RECREATIONAL FUNCTION Goal Time Frame: 4-6 Weeks Goal 3:: INSTRUCT IN PROPHYLAXIS Goal Time Frame: 4-6 Weeks - Anticipated Interventions Patient/Client Instruction: Educate patient on: Condition, Plan of Care, Risk Factors For the Purpose of:: To improve self management Therapeutic Exercise to Include: Strength training, Body mechanics, Postural training, Flexibilty training, Neuromotor development, Scapular Strength/Stabilization For the Purpose of:: To decrease pain, To improve muscle performance and motor function, To increase tolerance to activity/condition/position, To improve ability of physical actions for home/community/work/leisure Thank you for the opportunity to evaluate your patient. For Medicare and Medicare HMO plans, please review the plan of care and approve it. It will need to be FAXED BACK to us at [phone] for Medicare purposes. For Medicare only, by signing this I certify the plan of care. Please let me know if there are questions or concerns regarding this plan of care. Physician Signature: Date:
--- NOTE | 2021-05-20 14:03 | HP.PTDCSUM ---
It has been my pleasure to treat AMY VALDOVINOS referred by Dr. Marcelle Morales DO, with the diagnosis of CERVICAL RADICULOPATHY for a total of 11 visit(s). Discharge Date: 05/20/21 Please see the following information for a summary of their discharge status. Subjective: PATIENT REPORTS SHE IS BETTER BUT STILL HAS NECK PAIN. PATIENT REPORTS HER NECK PAIN IS LESS AND HER FLEXABILITY IN HER NECK IS BETTER. HEADACHES ARE BETTER. GRANT UE NUMBNESS AND TINGLING IS GONE. STATES SHE CAN'T REMEMBER THE LAST TIME SHE HAD CLICKING IN HER NECK THAT CAUSED PAIN SO THAT IS BETTER TOO. PATIENT REPORTS SHE STILL HAS TIGHTNESS IN HER NECK AND SHLDS AND MILD INTERMITTENT NECK AND SHLD PAIN. STATES SHE FEELS READY TO STOP FORMAL PHYSICAL THERAPY AND CONTINUE THE EX'S ON HER OWN. REPORTS SHE IS HOPEFUL THAT IT WILL CONTINUE TO GET BETTER WITH TIME. PATIENT REPORTS THE EX'S ARE REALLY HELPING. NECK Pain Intensity (Out of 10): 1 R SHLD Pain Intensity (Out of 10): 0 L SHLD Pain Intensity (Out of 10): 0 HEADACHE Pain Intensity (Out of 10): 0 % Improvement: 65 Objective/Function: PATIENT WAS SEEN TODAY FOR RE-ASSESSMENT OF PROGRESS TOWARD THE SET PT GOALS AND THE NEED FOR FURTHER PHYSICAL THERAPY VS READINESS FOR DISCHARGE. PATIENT HAS MADE GOOD PROGRESS WITH PT AND IS INDEP WITH A HEP NOW. SHE HAS ALSO RESPONDED WELL TO MODALITIES. UPON EXAM TODAY: GRANT UE STENGTH IS 5/5. Dural Signs: NEGATIVE GRANT UE'S. Cervical Mvmt Loss: Flex: MIN. Pro: NIL. Ext: MOD. Ret: MOD. RSB: MIN. LSB: MIN. R Rot: MIN. L Rot: MIN. PATIENT C/O MILD PAIN IN THE BACK OF HER HEAD AND UPPER BACK BACK WITH CERVICAL ROM INTO EXTENSION ONLY TODAY BUT THERE IS STIFFNESS THROUGHOUT. Goal 1:: DECREASE C/O NECK, UPPER BACK AND GRANT UE SX'S. Goal Progress: Goal Met Goal 2:: IMPROVE LIFTING, SLEEP AND RECREATIONAL FUNCTION Goal Progress: Goal Met Goal 3:: INSTRUCT IN PROPHYLAXIS Goal Progress: Goal Met Plan: D/C TO HEP. PATIENT AGREEABLE. Discharge Comments: . If there are questions or concerns regarding this patient's physical therapy, please feel free to call me at [phone]. Thank you for the referral of this patient. Sincerely, Deisy Piedra, PT, Cert MDT Balance/Gait/Functional tests - Balance/Special Test Scores Oswestry Neck Score: 4
== END 2021-05-20 19:00 | disposition home or self-care (01) ==
LOC: PT 11:00
PROVIDERS: PCP Internal Medicine; Visit Provider Internal Medicine
DX: M54.12 Radiculopathy, cervical region (principal)
CPT/HCPCS: 97014; 97035; 97112; 97162; 97164; 97530; G0283

== ENCOUNTER 2021-06-02 13:39 | Emergency (ER) | payer OTHER, SELFPAY ==
[2021-06-02 13:40] VITALS: BP 171/103; PULSE 70; RESP 16; TEMP 36.4; O2SAT 100; BMI 29.0
[2021-06-02 13:42] VITALS: BP 171/103; PULSE 70; RESP 16; TEMP 36.4; O2SAT 100
--- NOTE | 2021-06-02 13:43 | EKG12_ITS ---
Test Reason : HEADACHE Blood Pressure : / mmHG Vent. Rate : 059 BPM Atrial Rate : 059 BPM P-R Int : 186 ms QRS Dur : 116 ms QT Int : 434 ms P-R-T Axes : 043 -26 026 degrees QTc Int : 429 ms Sinus bradycardia Left ventricular hypertrophy with QRS widening Abnormal ECG Confirmed by PIPPA DÍAZ, BRUNA ([id number]), armhole feller handstitching machine SCOTT SOLIZ ([id number]) on 06/08/2021 6:35:08 AM Referred By: Confirmed By:BRUNA DAS MD
--- NOTE | 2021-06-02 13:46 | NURSING ---
NO OLD EKGS
[2021-06-02 13:55] LABS: Absolute Lymphocyte Count 1.99 X10^3/uL (0.83-4.51); Absolute Neutrophil Count 6.5 X10^3/uL (2.0-7.7); Basophil# 0.05 X10^3/uL; Basophil% 0.6 % (0-1); Eosinophil# 0.01 X10^3/uL; Eosinophils% 0.1 % (0-5); Hematocrit 43.4 % (37-47); Hemoglobin 14.4 g/dL (12.0-15.0); Lymphocyte # 1.99 X10^3/ul (0.83-4.51); Lymphocyte % 22.1 % (19-41); Mean Corp Hgb Conc 33.2 g/dL (32-36); Mean Corpuscular Hgb 27.8 pg (27.0-32.0); Mean Corpuscular Volume 83.8 fL (81-99); Mean Platelet Vol. 9.4 fl (6.2-12.0); Monocyte# 0.35 X10^3/uL; Monocyte% 3.9 % (0-10); NRBC Flagged by Analyzer 0 % (0-5); Neutrophil # 6.54 X10^3/uL (2.7-7.7); Neutrophil % 72.7 % (47-70); Platelet Count 228 K/mm3 (150-450); RBC Distribution Width CV 12.7 % (11.6-14.6); RBC Distribution Width SD 38.8 fl (35.1-43.9); Red Blood Count 5.18 M/mm3 (4.2-5.4)
--- NOTE | 2021-06-02 14:00 | RAD_ITS ---
STUDY: X-RAY CHEST REASON FOR EXAM: Female, 56 years old. Headaches. Vomiting. TECHNIQUE: Single AP portable view of the chest. COMPARISON: Comparison is made with prior examination of 03/16/2021. FINDINGS: The lungs are clear and expanded. There is no demonstrated pleural abnormality. Normal size heart. Normal mediastinum and rosa. Normal visualized pulmonary arteries. There is atherosclerotic calcification of the aortic arch with tortuosity. There are diffuse degenerative changes of the visualized thoracic spine. Normal visualized ribs, clavicles, and shoulders. There is no demonstrated abnormality of the visualized soft tissue structures of the upper abdomen. RAD/Chest 1 View IMPRESSION: Normal x-ray examination of the chest. Electronically Signed: Jono Dumont MD at 14:29 EDT , Service support ,
[2021-06-02 14:21] LABS: AST(SGOT) 22 U/L (15-37); Alanine Aminotransfer ALT/SGPT 24 U/L (13-56); Alkaline Phosphatase 86 U/L (45-117); Anion Gap 7 (5-15); BUN 15 mg/dL (7-18); BUN/Creat Ratio 20.9 RATIO (10-20); Calcium,Total 9.5 mg/dL (8.5-10.1); Chloride 106 mmol/L (98-107); Creatinine, Serum 0.72 mg/dL (0.55-1.02); EST Glomerular Filtration Rate 90 mL/min (>60); Est Glom Filt Rate - Afr Amer 108 mL/min (>60); Estimated Creatinine Clearance 81.67 ml/min; Globulin 4.1 g/dL (2.2-4.2); Glucose 99 mg/dL (74-106); Potassium 3.7 mmol/L (3.5-5.1); Protein, Total 8.1 g/dL (6.4-8.2); Sodium Level 140 mmol/L (136-145); Troponin-I HS 10 pg/mL (3.0-54.0)
--- NOTE | 2021-06-02 14:34 | CT_ITS ---
STUDY: CTA HEAD AND NECK WITH CONTRAST REASON FOR EXAM: Female, 56 years old. Headaches. RADIATION DOSAGE (If Supplied By Facility): CTDIvol = ( 30.92 ) mGy, DLP = ( 1638.58 ) mGycm TECHNIQUE: CT angiography was performed with a multi-detector CT scanner. Data acquisition was obtained from the skull base through the vertex following intravenous administration of . MIP images were reconstructed from the axial data set. Post-processing of the angiographic images was performed, with multiplanar reformation and 3D reconstruction. Individualized dose optimization techniques were used for this CT. COMPARISON: No relevant priors. FINDINGS: Several small hypodense nodules are seen in both lobes of the thyroid gland slightly more prominent on the right side. The right lobe of the thyroid gland is enlarged with substernal extension. Correlation with the ultrasound is recommended if clinically indicated. Normal bilateral petrous carotid arteries. Normal right cavernous carotid artery with a normal supraclinoid bifurcation. Normal left cavernous carotid artery with a normal supraclinoid bifurcation. Normal right A1 segments of the anterior cerebral artery. Normal left A1 segments of the anterior cerebral artery. Normal intact anterior communicating artery (ACOM). Normal bilateral A2 segments of the anterior cerebral arteries. Normal right M1 and M2 segments of the middle cerebral arteries, with a normal M1 bifurcation. Normal left M1 and M2 segments of the middle cerebral arteries, with a normal M1 bifurcation. Normal right posterior communicating artery (PCOM). Normal left posterior communicating artery (PCOM). Normal bilateral vertebral arteries. Normal basilar artery with a normal basilar bifurcation. The visualized bilateral superior cerebellar (SCA) arteries are normal. Normal bilateral P1, P2 and visualized P3 segments of the posterior cerebral arteries. There is no demonstrated aneurysm of the [place] of [place]. There is no demonstrated abnormality of the visualized brain. AORTIC ARCH: Normal visualized aortic arch. Normal origins of the brachiocephalic, left common carotid, and left subclavian arteries. RIGHT CAROTID ARTERIES: Normal right common carotid artery (CCA). Normal right common carotid bulb. There is mild atherosclerotic plaque formation of the origin of the right internal carotid artery with less than 50% cross sectional diameter stenosis. Normal visualized cervical portion of the right internal carotid artery. Normal origin of the right external carotid artery (ECA). LEFT CAROTID ARTERIES: Normal left common carotid artery (CCA). Normal left common carotid bulb. Normal origin of the left internal carotid (ICA) artery without a hemodynamically significant stenosis. Normal visualized cervical portion of the left internal carotid artery. Normal origin of the left external carotid artery (ECA). VERTEBRAL ARTERIES: Normal bilateral vertebral arteries. CT/CTA Head AND Neck W/ Contrast IMPRESSION: Minimal calcific plaque at the origin of the right internal carotid artery. No significant stenosis is seen. Heterogeneous enlargement of the thyroid as described. Correlation with ultrasound is recommended. Electronically Signed: Jono Dumont MD at 15:34 EDT , Service support ,
--- NOTE | 2021-06-02 14:35 | EX.ED.DYSGE1 ---
HPI History of Present Illness Chief Complaint: Headache Informant: patient Onset/Context/Timing Onset: Today Context: Gradual Onset Timing: Waxes and wanes Current Severity: Mild Maximum Severity: Severe Narrative Narrative: Patient presents secondary to headache, vomiting, chest pain. Patient states that she woke this morning not feeling well with a mild headache. 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 Before they can make their first stop they had a sinker puller and she was vomiting secondary to worsened headache. She complains of headache on the left side. She states she recently had a problem with headaches and it was felt to be due to a narrowing in her neck. She underwent physical therapy and things seem to be improved. She did note some blurry vision and light sensitivity this morning when this occurred. She states after her second round of vomiting she noted some pain in her chest. That seems to be improved at this time. [facility] Medical History (Updated 06/02/21 @ 15:[address] Melania Gann MD) Abdominal pain Arthritis Depression with anxiety Diverticulosis Hemorrhoids MGUS (monoclonal gammopathy of unknown significance) Home Medications celecoxib 100 mg capsule 100 mg PO DAILY 03/26/20 [History Last Taken Unknown] cetirizine 10 mg capsule 10 mg PO DAILY 03/26/20 [History Last Taken Unknown] cholecalciferol (vitamin D3) 10 mcg/drop (400 unit/drop) oral drops 10 mcg PO DAILY 03/26/20 [History Last Taken Unknown] gabapentin 100 mg capsule 100 mg PO DAILY 03/26/20 [History Last Taken Unknown] magnesium oxide 400 mg (241.3 mg magnesium) tablet 400 mg PO DAILY 03/26/20 [History Last Taken Unknown] mecobalamin (vitamin B12) 1,000 mcg disintegrating tablet,sublingual 1,000 mcg SUBLINGUAL DAILY 03/26/20 [History Last Taken Unknown] omega-3 fatty acids 1,000 mg capsule 1,000 mg PO DAILY 03/26/20 [History Last Taken Unknown] Allergy/AdvReac Type Severity Reaction Status Date / Time paroxetine [From Paxil] Allergy Mild Diarrhea Verified 06/02/21 13:43 Family History Father Cancer Mother Diabetes Heart disease Surgical History history excision abdominal cysts History of hysterectomy History of laparoscopic cholecystectomy History of left nephrectomy History of tubal ligation Social History Smoking Status: Never smoker alcohol intake: never substance use type: does not use ROS ROS ED Constitutional Constitutional ED: Denies chills or fever(s) Eyes Eyes: Reports blurry vision and change in vision ENT ENT ED: Denies sore throat Cardiovascular Cardiovascular: Reports chest pain Respiratory/Chest Respiratory/Chest: Denies cough or dyspnea Gastrointestinal Gastrointestinal: Reports nausea and vomiting; Denies abdominal pain or diarrhea Genitourinary Genitourinary ED: Denies dysuria Musculoskeletal Musculoskeletal: Denies back pain Integumentary Denies rash Neurologic Neurologic: Reports headache(s); Denies weakness Allergic/Immunologic Allergic/Immunologic ED: Denies urticaria EXAM Physical Exam Const Vital Signs: 06/02/21 13:40 06/02/21 13:42 Temperature 97.6 F L 97.6 F L Temperature Source Temporal Temporal Pulse Rate 70 70 Respiratory Rate 16 16 Blood Pressure 171/103 H 171/103 H Blood Pressure Mean 125 125 Pulse Ox 100 100 Oxygen Delivery Method Room Air Room Air Positive well nourished and well developed General Appearance ED: well developed HEENT Reports normocephalic and head/scalp atraumatic Eyes PERRL and EOMs intact bilaterally Neck supple Chest Wall inspection of chest normal and palpation of chest normal Resp normal respiratory effort and clear to auscultation bilaterally Cardio regular rate and regular rhythm GI normal to inspection, nondistended, normoactive bowel sounds Palpation: soft Extremity normal to inspection Neuro oriented x3 and no sensory deficits noted Sensorium / Orientation: alert Motor Exam: strength 5/5 throughout Psych mental status grossly normal Skin no rashes or lesions noted MDM MDM MDM Narrative Medical decision making narrative: Patient was given Toradol, Reglan, Benadryl, IV fluids. Lab work, EKG, chest x-ray, CTA head and neck obtained. Lab Data Attestation: I reviewed the patient's lab results. Labs: Laboratory Results - last 24 hr 06/02/21 06/02/21 13:50 13:50 WBC 9.0 RBC 5.18 Hgb 14.4 Hct 43.4 MCV 83.8 MCH 27.8 MCHC 33.2 RDW Std Deviation 38.8 RDW Coeff of Carly 12.7 Plt Count 228 MPV 9.4 Immature Gran % (Auto) 0.600 Neut % (Auto) 72.7 H Lymph % (Auto) 22.1 [place] % (Auto) 3.9 Eos % (Auto) 0.1 Baso % (Auto) 0.6 Absolute Neuts (auto) 6.5 Absolute Lymphs (auto) 1.99 Nucleated RBC % 0 Sodium 140 Potassium 3.7 Chloride 106 Carbon Dioxide 27.0 Anion Gap 7 BUN 15 Creatinine 0.72 Estim Creat Clear Calc 81.67 Est GFR (MDRD) Af Amer 108 Est GFR (MDRD) Non-Af 90 BUN/Creatinine Ratio 20.9 H Glucose 99 Calcium 9.5 Total Bilirubin 0.70 AST 22 ALT 24 Alkaline Phosphatase 86 Troponin I High Sens 10 Total Protein 8.1 Albumin 4.0 Globulin 4.1 Albumin/Globulin Ratio 1.0 Radiography Chest X-Ray - ED: 1 View, Read by ED Physician, Normal, Heart, Lungs and Mediastinum Diagnostic Testing: Clinical Impression(s) from Imaging Studies Chest X-Ray 06/02/21 14:00 IMPRESSION: Normal x-ray examination of the chest. Electronically Signed: Jono Dumont MD at 14:29 EDT , Service support , Head/Neck CTA 06/02/21 14:34 IMPRESSION: Minimal calcific plaque at the origin of the right internal carotid artery. No significant stenosis is seen. Heterogeneous enlargement of the thyroid as described. Correlation with ultrasound is recommended. Electronically Signed: Jono Dumont MD at 15:34 EDT , Service support , EKG Initial EKG: Attestation: I personally reviewed and interpreted this EKG as follows: Interpretation: Sinus Bradycardia (Sinus bradycardia 59 bpm. No acute ischemia.) Treatment and Re-Evaluation Comments:: On repeat evaluation patient resting comfortably. She does report some improvement in her headache. Lab work is unremarkable with a normal troponin and unremarkable EKG. Chest x-ray normal per my interpretation as well as radiologist read. CTA reveals minimal plaque. Repeat blood pressure at this time is 155/86. Patient will be discharged home to continue supportive care. Discharge Plan Triage Chief Complaint: Headache ED Provider: Melania Gann Dx/Rx/DC Orders Clinical Impression: Migraine Instructions: ED, Migraine (Classical) Prescriptions: No Action mecobalamin (vitamin B12) 1,000 mcg tablet,disintegrating 1,000 mcg SUBLINGUAL DAILY RF: 0 magnesium oxide 400 mg (241.3 mg magnesium) tablet 400 mg PO DAILY RF: 0 Zyrtec 10 mg capsule 10 mg PO DAILY RF: 0 gabapentin 100 mg capsule 100 mg PO DAILY RF: 0 celecoxib [Celebrex] 100 mg capsule 100 mg PO DAILY RF: 0 cholecalciferol (vitamin D3) 10 mcg/drop (400 unit/drop) drops 10 mcg PO DAILY RF: 0 omega-3 fatty acids [Fish Oil Concentrate] 1,000 mg capsule 1,000 mg PO DAILY RF: 0 Primary Care Provider: Marcelle Morales Referrals: Marcelle Morales, DO [Primary Care Provider] - 3-5 Days if not improving Disposition Disposition: Home, Self Care
[2021-06-02] MEDS: DiphenhydrAMINE 50 MG/ML Syringe 25 MG IV (14:45)
[2021-06-02] MEDS: Metoclopramide 10 MG/2 ML Vial IV (14:45)
[2021-06-02] MEDS: Ketorolac 30 MG/ML Syringe IV (14:46)
[2021-06-02] MEDS: 0.9% Normal Saline 1,000 ML 999 ML IV (14:47)
[2021-06-02 16:04] VITALS: BP 155/86; PULSE 53; RESP 13; O2SAT 99
== END 2021-06-02 16:04 | disposition home or self-care (01) ==
PROVIDERS: Emergency Provider Emergency Medicine; PCP Internal Medicine
DX: G43.909 Migraine, unspecified, not intractable, without status migrainosus (principal); F41.8 Other specified anxiety disorders; M19.90 Unspecified osteoarthritis, unspecified site; Z79.899 Other long term (current) drug therapy
CPT/HCPCS: 70496; 70498; 71045; 80053; 84484; 85025; 93005; 96361; 96374; 96375; 99284; J7030; Q9967; A4216

== ENCOUNTER 2021-06-29 15:56 | Outpatient (CLI) | payer OTHER, SELFPAY ==
[2021-06-29 16:20] VITALS: BP 144/94; PULSE 83; RESP 16; TEMP 36.9; O2SAT 98; BMI 29.3
[2021-06-29] MEDS: 0.9% Saline Lock 10 ML Syringe IV (16:20)
[2021-06-29 16:57] VITALS: BP 163/96; PULSE 69; RESP 16; TEMP 36.8; O2SAT 99
[2021-06-29 17:57] VITALS: BP 165/95; PULSE 59; RESP 16; TEMP 36.7; O2SAT 98
== END 2021-06-29 17:57 | disposition home or self-care (01) ==
LOC: MS3OUT 15:56 → MS3 15:57
PROVIDERS: PCP Internal Medicine; Referring Provider Nurse Practitioner Acute Care; Visit Provider Nurse Practitioner Acute Care
DX: Z23 Encounter for immunization (principal); U07.1 COVID-19
CPT/HCPCS: J7050; M0245; Q0245; A4216

== ENCOUNTER → 2021-07-02 16:07 | Outpatient (CLI) | payer OTHER, SELFPAY ==
--- NOTE | 2021-07-02 16:32 | RAD_ITS ---
EXAM: XR CHEST, 2 VIEWS CLINICAL INDICATION: COUGH TECHNIQUE: Frontal and lateral views of the chest. This report was created using [employer] report generation technology. COMPARISON: 06/02/2021 FINDINGS: LUNGS AND PLEURAL SPACES: Unremarkable. No consolidation or edema. No pneumothorax. No effusion. HEART: Unremarkable. Cardiac silhouette not enlarged. MEDIASTINUM: Central airways and mediastinal contour are unremarkable. BONES/JOINTS: Unremarkable. SOFT TISSUES: Unremarkable. RAD/Chest PA and Lateral IMPRESSION: No radiographic evidence of acute cardiopulmonary disease. Electronically Signed: Omar Delong MD at 20:59 EST , Service support ,
== END ==
PROVIDERS: PCP Internal Medicine; Referring Provider Internal Medicine; Visit Provider Internal Medicine
DX: R05.9 Cough, unspecified (principal)
CPT/HCPCS: 71046

== ENCOUNTER → 2021-07-13 06:02 | Outpatient (CLI) | payer OTHER, SELFPAY ==
--- NOTE | 2021-07-13 17:57 | STRESSREP ---
Stress Test Report Exercise myocardial perfusion stress test. 56-year-old lady with a history of chest pain. Stress protocol: Resting EKG demonstrates normal sinus rhythm with a rate of 63 bpm normal intervals are noted. The patient exercised according to regular Augustine protocol for total duration of 8 minutes. The maximum heart rate attained was 157 bpm which was 95% of max impact at heart rate the maximum workload attained was 10.1 metabolic equivalents. At rest there were no ST or T wave changes noted suggest ischemia and at peak exercise upsloping ST changes were noted with did not meet the criteria for ischemia. No clinical angina was noted. The resting blood pressure was 124/88 with a peak blood pressure 160/80 mmHg. Myocardial perfusion protocol. 11.2 mCi of technetium 99m sestamibi was injected at rest. The patient exercised according to regular Augustine protocol. At peak exercise 33.8 mCi of technetium 99m sestamibi was injected stress images were obtained stress and rest images were reconstructed and compared in the short axis vertical long horizontal long axis. Gated images were also obtained Perfusion SPECT analysis: Review of the stress images demonstrate normal uptake of tracer noted in all areas of the myocardium. The resting images similarly demonstrated normal uptake of tracer noted in all areas of the myocardium. No areas of reversibility are noted suggest ischemia and no previous infarct is noted. Gated SPECT analysis: The gated ejection fraction is noted to be 52%. Conclusion: Normal exercise myocardial perfusion stress test at a high workload. Preserved ejection fraction.
== END ==
PROVIDERS: PCP Internal Medicine; Referring Provider Internal Medicine; Visit Provider Internal Medicine
DX: R07.9 Chest pain, unspecified (principal)
CPT/HCPCS: 78452; 93017; A9500; A4216

== ENCOUNTER 2021-10-07 12:00 | Outpatient (RCR) | payer OTHER, SELFPAY ==
--- NOTE | 2021-09-01 11:47 | HP.PTEVAL_ITS ---
Patient's Visit Information AMY VALDOVINOS is a 56 year old F referred to Physical Therapy by Dr. Marcelle Morales DO with a diagnosis of R elbow pain. Date of Evaluation: 09/01/21 Physical Therapist: Iglesia Pond DPT, OCS, CSCS - Visit Plan Frequency: 3x /Week Duration: 4 Weeks Plan: 2-3x/week for 4 weeks for. 1. US nonthermal R medial elbow. 2. stretch R wrist flexors adn eccentric strenght to HEP. 3. STM R medial elbow and wrist flexors. ice pack, ice massage - Subjective R elbow hurts as dog pulled on leash and it pulled her elbow and she fell and landed on R UE over a month ago. No other injuries. Eklbow was x rayed and no problems with that. Slightly improving. No previous elbow problems. R handed. Pain is medially. Comfortable at rest. Hurts wikth carrying something in hand or holding dog on lap. Picking up box and reaching out can hurt it. Other UE joints are OK. No numbness or tinglin in arm. Neck is OK. Sleeping OK but it is uncomfortable at times if she sleeps on stomach. 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 Basic ADLs are all OK. Hobbies:reading and playing with dog,. [employer] member for classes. - Pain R elbow medial Pain Intensity (Out of 10): 0 Pain Intensity Range: 0, 4 - Objective R medial elbow tender to touch moderately medially. No lateral tenderness. Full aROM at shoulder, elbow and wrist B UE without pain. Cervical AROM 40 ext adn full flexion and 60 rotation without pain, just stiff. resisted thumb and finger intirinsics is normal and painjfree. resisted elbow and shoulder 4-/5 and painfree. resisted wrist extension is painfree and 4, reisted R elbow flexion is painful immediately and 3+. + golfer's elbow test. - elbow varus and valgus. Sensation UE WNL to gross light touch. reflexes bi and tri 2/3 - Balance/Special Test Scores Quick DASH Score: 18.1800 - Goals Goal 1:: Sleep without waking at night regularly Goal Time Frame: 4-6 Weeks Goal 2:: No pain with R wrist flexion Goal Time Frame: 4-6 Weeks Goal 3:: Perfrom job duties without pain Goal Time Frame: 4-6 Weeks Goal 4:: Pt feel 90% better in elbow pain. Goal Time Frame: 4-6 Weeks - Rehabilitation Potential Physical Therapy Diagnosis: R golfers elbow pain limiting sleep and funcitonat work Rehabilitation Potential: Fair - Anticipated Interventions Patient/Client Instruction: Educate patient on: Condition, Plan of Care For the Purpose of:: To decrease pain, To improve muscle performance and motor function, To increase tolerance to activity/condition/position Therapeutic Exercise to Include: Strength training, Flexibilty training, Passive ROM, Active ROM For the Purpose of:: To decrease pain, To improve muscle performance and motor function, To increase tolerance to activity/condition/position, To improve ability of physical actions for home/community/work/leisure Manual Therapy Techniques to Include: Passive ROM, Soft tissue mobilization For the Purpose of:: To decrease pain Cryotherapy (ice pack, ice massage): Yes Ultrasound (thermal/non thermal): Yes - nonthermal For the Purpose of:: To decrease pain, To decrease swelling/inflammation Thank you for the opportunity to evaluate your patient. For Medicare and Medicare HMO plans, please review the plan of care and approve it. It will need to be FAXED BACK to us at [phone] for Medicare purposes. For Medicare only, by signing this I certify the plan of care. Please let me know if there are questions or concerns regarding this plan of care. Physician Si gnature: Date:
--- NOTE | 2021-10-07 12:29 | HP.PTDCSUM_ITS ---
It has been my pleasure to treat AMY VALDOVINOS referred by Dr. Marcelle Morales DO, with the diagnosis of R elbow pain for a total of 11 visit(s). Discharge Date: 10/07/21 Please see the following information for a summary of their discharge status. Subjective: Will see doctor in October. 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 Has been compliant with stretching and semi compliant with band. Overall is much better but still there. Still hurts tender bermudez for kids to grab her arm. Pain this week has been to 2/10 with pressure on it. 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 Lifting groceries still hurts if she does it wrong. 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 Overall making progress by using brace and attempting activity modification over the last 10 days and wishes to continue on her own until doctor f/u in a couple weeks. Goal 1:: Sleep without waking at night regularly Goal Progress: Goal Met Goal 2:: No pain with R wrist flexion Goal Progress: Not Progressing Goal 3:: Perfrom job duties without pain Goal Progress: slow progression Goal 4:: Pt feel 90% better in elbow pain. Goal Progress: 70% Plan: d/c to HEp of ecc strength, daily stretching, use brace and avoid aggravating activities. Discharge Comments: Pt to f/u with doctor in a couple weeks and call prior if pain worsens. If there are questions or concerns regarding this patient's physical therapy, please feel free to call me at [phone]. Thank you for the referral of this patient. Sincerely, Iglesia Pond, DPT, OCS, CSCS Balance/Gait/Functional tests - Balance/Special Test Scores Quick DASH Score: 2.2725
== END 2021-10-07 19:00 | disposition home or self-care (01) ==
LOC: PT 12:00
PROVIDERS: PCP Internal Medicine; Referring Provider Internal Medicine; Visit Provider Internal Medicine
DX: M25.521 Pain in right elbow (principal)
CPT/HCPCS: 97035; 97110; 97140; 97161; 97164; 97530

== ENCOUNTER 2021-10-13 20:20 | Emergency (ER) | payer OTHER, SELFPAY ==
[2021-10-13 20:20] VITALS: BP 148/104; PULSE 86; RESP 18; TEMP 35.9; O2SAT 97; BMI 32.3
[2021-10-13] MEDS: 0.9% Normal Saline 1,000 ML 1000 ML IV (21:05)
[2021-10-13 21:13] LABS: Absolute Lymphocyte Count 2.61 X10^3/uL (0.83-4.51); Absolute Neutrophil Count 4.3 X10^3/uL (2.0-7.7); Basophil# 0.04 X10^3/uL; Basophil% 0.5 % (0-1); Eosinophil# 0.18 X10^3/uL; Eosinophils% 2.4 % (0-5); Hematocrit 40.4 % (37-47); Hemoglobin 13.6 g/dL (12.0-15.0); Lymphocyte # 2.61 X10^3/ul (0.83-4.51); Lymphocyte % 34.2 % (19-41); Mean Corp Hgb Conc 33.7 g/dL (32-36); Mean Corpuscular Hgb 28.8 pg (27.0-32.0); Mean Corpuscular Volume 85.4 fL (81-99); Mean Platelet Vol. 9.8 fl (6.2-12.0); Monocyte# 0.47 X10^3/uL; Monocyte% 6.2 % (0-10); NRBC Flagged by Analyzer 0 % (0-5); Neutrophil # 4.31 X10^3/uL (2.7-7.7); Neutrophil % 56.3 % (47-70); Platelet Count 183 K/mm3 (150-450); RBC Distribution Width CV 13.8 % (11.6-14.6); RBC Distribution Width SD 42.7 fl (35.1-43.9); Red Blood Count 4.73 M/mm3 (4.2-5.4); White Blood Count 7.6 K/mm3 (4.4-11.0)
--- NOTE | 2021-10-13 21:24 | EDS_ITS ---
HPI History of Present Illness HPI Narrative: Patient presents with cramping in her lower extremities that began tonight. Patient states she was laying on her stomach on the couch watching TV when she felt some cramping in her thighs. Patient states she then felt cramping in her lower legs. Patient describes her pain as sharp and cramping. Patient states it has been waxing and waning since it began. Patient states it is worse when she bends forward and is better whenever she lays on her back. Patient admits to some tingling in her feet. Patient denies any weakness. Patient denies any trauma or injury. Chief Complaint: Lower Extremity Injury Informant: patient Onset/Context/Timing Onset: Today Context: Sudden Onset Timing: Continuous Quality of Pain: Sharp and - (Cramping) Location: Bilateral lower extremities Worsened by: Bending Relieved by: Laying on back Associated Symptoms Associated Symptoms: Positive for Parasthesia; Negative for Weakness and Loss of Funtion [facility] (Updated 10/13/21 @ 22:[address] Iglesia Hudson, DO) Abdominal pain Arthritis Depression with anxiety Diverticulosis Hemorrhoids MGUS (monoclonal gammopathy of unknown significance) Home Medications celecoxib 100 mg capsule 100 mg PO DAILY 03/26/20 [History Last Taken Unknown] cetirizine 10 mg capsule 10 mg PO DAILY 03/26/20 [History Last Taken Unknown] cholecalciferol (vitamin D3) 10 mcg/drop (400 unit/drop) oral drops 10 mcg PO DAILY 03/26/20 [History Last Taken Unknown] gabapentin 100 mg capsule 100 mg PO DAILY 03/26/20 [History Last Taken Unknown] magnesium oxide 400 mg (241.3 mg magnesium) tablet 400 mg PO DAILY 03/26/20 [History Last Taken Unknown] omega-3 fatty acids 1,000 mg capsule 1,000 mg PO DAILY 03/26/20 [History Last Taken Unknown] ascorbic acid (vitamin C) [Vitamin C] 250 mg PO BID 10/13/21 [History Last Taken Unknown] fluticasone propionate [Flonase] 2 spray INTRANASAL DAILY 10/13/21 [History Last Taken Unknown] zinc 50 mg PO BID 10/13/21 [History Last Taken Unknown] Allergy/AdvReac Type Severity Reaction Status Date / Time paroxetine [From Paxil] Allergy Mild Diarrhea Verified 10/13/21 20:32 smoke AdvReac Other Uncoded 10/13/21 20:32 Family History Father Cancer Mother Diabetes Heart disease Surgical History history excision abdominal cysts History of hysterectomy History of laparoscopic cholecystectomy History of left nephrectomy History of tubal ligation Social History Smoking Status: Never smoker alcohol intake: never substance use type: does not use ROS ROS ED Constitutional Constitutional ED: Denies chills or fever(s) Eyes Eyes: Denies blurry vision or change in vision ENT ENT ED: Denies rhinorrhea or sore throat Cardiovascular Cardiovascular: Denies chest pain or palpitations Respiratory/Chest Respiratory/Chest: Denies cough or dyspnea Gastrointestinal Gastrointestinal: Denies nausea or vomiting Genitourinary Genitourinary ED: Denies dysuria or hematuria Musculoskeletal Musculoskeletal: Denies back pain or neck pain Integumentary Denies abscess or rash Neurologic Neurologic: Reports paresthesias RLE (Foot) and LLE (Foot); Denies headache(s) or weakness Allergic/Immunologic Allergic/Immunologic ED: Denies mouth swelling or urticaria EXAM Physical Exam Const Vital Signs: 10/13/21 20:20 Temperature 96.7 F L Temperature Source Temporal Pulse Rate 86 Respiratory Rate 18 Blood Pressure 148/104 H Blood Pressure Mean 118 Pulse Ox 97 Oxygen Delivery Method Room Air Positive well nourished and well developed General Appearance ED: well developed and NAD HEENT Reports moist mucous membranes Extremity normal to inspection and full ROM General Extremety ED: Negative for edema General Extremity: Negative for edema Neuro oriented x3, CN's II-XII intact bilaterally, moves all extremities and no sensory deficits noted Sensorium / Orientation: alert Motor Exam: strength 5/5 throughout Psych mental status grossly normal MDM MDM MDM Narrative Medical decision making narrative: Patient was given IV fluids here. CBC was within normal limits. Comprehensive metabolic profile showed a mild hypokalemia of 3.3. BUN was slightly elevated at twenty-one. Creatinine was normal. Patient was given a dose of oral potassium here. Patient is feeling better on reevaluation. Patient was instructed to drink plenty of fluids. Patient was instructed to follow-up with her primary care physician in 5 to 7 days. Patient understood and was agreeable with the plan. All questions were answered. Lab Data Attestation: I reviewed the patient's lab results. Labs: Laboratory Results - last 24 hr 10/13/21 10/13/21 21:00 21:00 WBC 7.6 RBC 4.73 Hgb 13.6 Hct 40.4 MCV 85.4 MCH 28.8 MCHC 33.7 RDW Std Deviation 42.7 RDW Coeff of Carly 13.8 Plt Count 183 MPV 9.8 Immature Gran % (Auto) 0.400 Neut % (Auto) 56.3 Lymph % (Auto) 34.2 [place] % (Auto) 6.2 Eos % (Auto) 2.4 Baso % (Auto) 0.5 Absolute Neuts (auto) 4.3 Absolute Lymphs (auto) 2.61 Nucleated RBC % 0 Sodium 142 Potassium 3.3 L Chloride 109 H Carbon Dioxide 28.0 Anion Gap 5 BUN 21 H Creatinine 0.84 Estim Creat Clear Calc 70.01 Est GFR (MDRD) Af Amer 90 Est GFR (MDRD) Non-Af 74 BUN/Creatinine Ratio 24.9 H Glucose 163 H Calcium 8.8 Total Bilirubin 0.30 AST 22 ALT 28 Alkaline Phosphatase 84 Total Protein 7.1 Albumin 3.7 Globulin 3.4 Albumin/Globulin Ratio 1.1 Discharge Plan Triage Chief Complaint: Lower Extremity Injury ED Provider: Iglesia Hudson Dx/Rx/DC Orders Clinical Impression: Cramps, muscle, general Instructions: ED Muscle Spasm Prescriptions: No Action magnesium oxide 400 mg (241.3 mg magnesium) tablet 400 mg PO DAILY RF: 0 Zyrtec 10 mg capsule 10 mg PO DAILY RF: 0 gabapentin 100 mg capsule 100 mg PO DAILY RF: 0 celecoxib [Celebrex] 100 mg capsule 100 mg PO DAILY RF: 0 cholecalciferol (vitamin D3) 10 mcg/drop (400 unit/drop) drops 10 mcg PO DAILY RF: 0 omega-3 fatty acids [Fish Oil Concentrate] 1,000 mg capsule 1,000 mg PO DAILY RF: 0 ascorbic acid (vitamin C) [Vitamin C] 250 mg Tablet 250 mg PO BID RF: 0 fluticasone propionate [Flonase] 50 mcg/actuation [place],Suspension 2 spray INTRANASAL DAILY RF: 0 zinc 50 mg Capsule 50 mg PO BID RF: 0 Primary Care Provider: Marcelle Morales Referrals: Marcelle Morales, [Primary Care Provider] - 3-5 Days Disposition Disposition: Home, Self Care
[2021-10-13 21:34] LABS: ALB/GLOB Ratio 1.1 RATIO (0.9-2.4); AST(SGOT) 22 U/L (15-37); Alanine Aminotransfer ALT/SGPT 28 U/L (13-56); Albumin, Serum 3.7 g/dL (3.2-5.0); Alkaline Phosphatase 84 U/L (45-117); Anion Gap 5 (5-15); BUN 21 mg/dL (7-18); BUN/Creat Ratio 24.9 RATIO (10-20); Calcium,Total 8.8 mg/dL (8.5-10.1); Chloride 109 mmol/L (98-107); Creatinine, Serum 0.84 mg/dL (0.55-1.02); EST Glomerular Filtration Rate 74 mL/min (>60); Est Glom Filt Rate - Afr Amer 90 mL/min (>60); Estimated Creatinine Clearance 70.01 ml/min; Globulin 3.4 g/dL (2.2-4.2); Glucose 163 mg/dL (74-106); Potassium 3.3 mmol/L (3.5-5.1); Protein, Total 7.1 g/dL (6.4-8.2); Sodium Level 142 mmol/L (136-145)
[2021-10-13 22:08] VITALS: PULSE 86; RESP 16; TEMP 37
[2021-10-13] MEDS: Potassium Chloride Oral Tablet 20 MEQ 40 MEQ PO (22:09)
== END 2021-10-13 22:10 | disposition home or self-care (01) ==
PROVIDERS: Emergency Provider Emergency Medicine; PCP Internal Medicine; Visit Provider Emergency Medicine
DX: E87.6 Hypokalemia (principal); M19.90 Unspecified osteoarthritis, unspecified site; F41.8 Other specified anxiety disorders; Z79.899 Other long term (current) drug therapy
CPT/HCPCS: 80053; 85025; 96360; 99284; J7030; A4216

== ENCOUNTER 2021-11-26 10:07 | Outpatient (CLI) | payer OTHER, SELFPAY ==
--- NOTE | 2021-11-26 10:22 | BI_ITS ---
MAMMOGRAPHY - BILATERAL SCREENING REASON FOR EXAM: Female, 56 years old. Routine annual screening examination. PERTINENT HISTORY: Non-contributory. TECHNIQUE: Digital bilateral breast kisha (3D mammographic acquisition) in the CC and MLO projections. 2-D mediolateral oblique (MLO) and craniocaudad (CC) views of both breasts were obtained. CAD: Full Field Digital Mammography with Computer Added Detection was performed. COMPARISON: Comparison is made with prior study dated 10/20/2020 and 10/17/2019. FINDINGS: Breast Composition: There are scattered areas of fibroglandular density. There are no dominant masses or suspicious calcifications. Stable asymmetry of breast tissue with more breast tissue is seen in the upper-outer quadrant of the right breast as compared to the left side. Stable benign appearing bilateral axillary lymph nodes. No other significant abnormalities are identified. There has been no significant change since the prior study. BI/SCRN MAMM (CAD)W/KISHA BILAT IMPRESSION: Stable bilateral screening mammogram. Yearly follow-up mammogram recommended. (A) ASSESSMENT CATEGORY: BIRADS Category 2: Benign. A letter regarding these results will be sent to the patient by the facility within 30 days. Approximately 10% of breast cancers are not detected by mammography. A normal mammogram should not delay biopsy of a clinically suspicious abnormality. [id number] Electronically Signed: Jono Dumont MD at 13:27 EDT ,
== END 2021-11-26 23:59 | disposition home or self-care (01) ==
LOC: OPBI 10:21
PROVIDERS: PCP Internal Medicine; Referring Provider Internal Medicine; Visit Provider Internal Medicine
DX: Z12.31 Encounter for screening mammogram for malignant neoplasm of breast (principal)
CPT/HCPCS: 77063; 77067

== ENCOUNTER → 2022-03-28 | Outpatient (CLI) | payer OTHER, SELFPAY ==
--- NOTE | 2022-03-28 15:18 | US_ITS ---
STUDY: THYROID ULTRASOUND REASON FOR EXAM: Female, 56 years old. Known nodules, follow-up TECHNIQUE: Ultrasound evaluation of the thyroid was performed with real-time and static acharya-scale imaging. COMPARISON: 01/16/2021 FINDINGS: RIGHT LOBE: The right lobe of the thyroid gland measures 5.4 x 2.7 x 2 cm. There is a homogeneous echotexture. Stable complex and heterogeneous nodules noted in the right lobe. Largest measures 2.3 x 1.9 x 1.5 cm. No interval change. LEFT LOBE: The left lobe of the thyroid gland measures 4.5 x 1.8 x 1.2 cm. There is a homogeneous echotexture. C Web Developer again notes 3 stable complex and heterogeneous nodules. Largest measures 1 x 0.9 x 0.8 cm. ISTHMUS: The isthmus measures 0.3 cm. The regional lymph nodes are normal. US/Thyroid IMPRESSION: Stable enlarged thyroid with stable bilateral complex and heterogeneous nodules. Findings again consistent with goiter. No interval change. Yearly follow-up again recommended. Electronically Signed: Willian Johnson MD at 9:37 EDT ,
== END | disposition home or self-care (01) ==
LOC: US 15:17
PROVIDERS: PCP Internal Medicine; Referring Provider Internal Medicine; Visit Provider Internal Medicine
DX: E04.2 Nontoxic multinodular goiter (principal)
CPT/HCPCS: 76536

== ENCOUNTER 2022-08-29 10:30 | Outpatient (RCR) | payer OTHER, SELFPAY ==
--- NOTE | 2022-06-02 11:48 | HP.PTEVAL ---
Patient's Visit Information AMY VALDOVINOS is a 57 year old F referred to Physical Therapy by Dr. Marcelle Morales DO with a diagnosis of LUMBAR RADICULOPATHY AND KNEE PAIN. Date of Evaluation: 06/02/22 Physical Therapist: Deisy Piedra, PT, Cert MDT - Visit Plan Frequency: 2-3x /Week Duration: 4-6 Weeks Plan: AQUATIC THERAPY FOR PAIN RELEIF, POSTURE CORRECTION/STRENGTHENING, INSTRUCTION IN APPROPRIATE BODY MECHANICS AND ACTIVITY MODIFICATIONS. DLS STARTING WITH A NEUTRAL SPINE PROGRESSING ROM TOLERATED. GRANT LE ROM, STRETCHING AND STRENGTHENING. HEP INSTRUCTION. 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 Disability: NO. Present symptoms: CENTRAL LBP. GRANT KNEE PAIN R>L. NEAR CONSTANT GRANT FOOT NUMBNESS AND TINGLING. GRANT FOOT PAIN (NEUROPATHY AND ARTHRITIS). Present since: CHRONIC. GRADUAL WORSENING OF BACK AND KNEE PAIN. Pain Scale: WORST 6/10, LEAST 1/10. Currently: 09/30. Commenced as a result of: NO APPARENT REASON. Symptoms at onset: R KNEE. Worse: WALKING FAST, BENDING AND LIFTING, TRYING TO DO A WALL SIT/SQUATTING. Better: LYING DOWN, [place], ICE, HEAT. Disturbed sleep: SOMETIMES. Previous history/Previous treatment: PHYSICAL THERAPY FOR BACK AND KNEES. CHIROPRACTOR A LONG TIME AGO. NO BACK OR KNEE SURGERY. NO BACK OR KNEE INJECTIONS. Treatment this episode: PT CONSULT. Coughing/sneezing/straining: NEGATIVE. Gait: SLOW AND TIME AND DISTANCE LIMITED. NO AD'S. Bowel or Bladder Dysfunction: NO. Accidents: NO. Unexplained weight loss: NO. Imaging: SEE RECENT SACRUM AND R KNEE X-RAYS IN [facility] EMR. ALSO LUMBAR X-RAY JUL 2021 SHOWING DDD. PMH/Recent major surgery: IBS, HTN, ARTHRITIS, NEUROPATHY, HIGH CHOLESTEROL. L KIDNEY NEPHRECTOMY. - Objective Sitting/Standing Posture: POOR. FH. RSH'S. NO RELEVENT LUMBAR LATERAL SHIFT. Active Correction of posture: WORSE. Other Observations: INDEP GAIT INTO PT WITH DECREASED CADANCE AND NO AD OR LOB. [place] SHOES A COUPLE WEEKS AGO WITH [facility] MAD A FEW YEARS AGO. Sensory deficit: GRANT LE LIGHT TOUCH SENSATION GROSSLY INTACT AND SYMMETRICAL. ROM deficit: R KNEE ROM IN SUPINE WITH A HEEL SLIDE = -5 DEG EXT TO 106 DEG FLEXION. L KNEE = -5 DEG EXT TO 120 DEG FLEXION. ERP GRANT KNEE FLEXION. Motor deficit: GRANT LE'S GROSSLY 4/5 WITH MMT'ING EXCEPT ANKLES 5/5. Dural Signs: NEGATIVE GRANT LE'S. Lumbar mvmt loss: flex - NIL. ext - MOD. R SG - MOD. L SG - MOD. PATIENT C/O CENTRAL LBP WITH LUMBAR EXT ROM TESTING. Core strength: POOR. Palpation: CENTRAL LOWER LUMBAR TENDERNESS L345 REGION AND S1. OTHER: BRIEF REVIEW OF PROPER POSTURE CONTROL AND BODY MECHANICS FROM PREVIOUS EPISODES OF CARE WITH PT. PATIENT COMMUNICATES A GOOD UNDERSTANDING BUT COULD BENEFIT FORM REINFORCEMENT. - Balance/Special Test Scores Oswestry Low Back Score: 5 Lower Extremity Functional Score: 57 - Goals Goal 1:: DECREASE C/O LOW BACK AND GRANT LE SX'S. Goal Time Frame: 6-8 Weeks Goal 2:: IMPROVE STANDING, WALKING, TRAVEL AND WORK/HOMEMAKING FUNCTION Goal Time Frame: 6-8 Weeks Goal 3:: INSTRUCT IN PROPHYLAXIS Goal Time Frame: 6-8 Weeks - Anticipated Interventions Patient/Client Instruction: Educate patient on: Condition, Plan of Care, Risk Factors For the Purpose of:: To improve self management Therapeutic Exercise to Include: Strength training, Body mechanics, Postural training, Flexibilty training, Gait and locomotor training, Neuromotor development, In an aquatic setting, Dynamic Lumbar Stabilization For the Purpose of:: To decrease pain, To improve muscle performance and motor function, To increase tolerance to activity/condition/position, To improve ability of physical actions for home/community/work/leisure, To improve gait and locomotor functions Thank you for the opportunity to evaluate your patient. For Medicare and Medicare HMO plans, please review the plan of care and approve it. It will need to be FAXED BACK to us at [phone] for Medicare purposes. For Medicare only, by signing this I certify the plan of care. Please let me know if there are questions or concerns regarding this plan of care. Physician Signature: Date:
--- NOTE | 2022-08-29 11:01 | HP.PTREVAL ---
Dr. Marcelle Morales, DO, It has been my pleasure to treat AMY VALDOVINOS over the last 18 visits for LUMBAR RADICULOPATHY AND KNEE PAIN. Please see the progress note below for an update on the physical therapy plan of care! Subjective: I'M A LOT BETTER THIS TIME. PATIENT REPORTS ABOUT 60% IMPROVEMENT STATING HER POSTURE IS BETTER AND HER BACK AND KNEE PAIN ARE BETTER. LBP TAILBONE PAIN IS RANGING 0-1/10 AND KNEES AREN'T HURTING. IS STILL HAVING SOME CLICKING IN KNEES THOUGH. HAS BEEN ABLE TO COME IN AND DO SOME INDEP POOL AND INDEP GYM EX'S BUT BEING cautious. HAS NOT RESUMED CLASSES YET. WOULD LIKE TO CONTINUE POOL THERAPY TO SOME DEGREE TO CONTINUE TO PROGRESS. PATIENT REPORTS SHE REALLY LIKES THE POOL AND SHE FEELS LIKE SHE IS LEARNING A LOT. STATES SHE WAS CHALLENGED LAST SESSION WITH STEPS UPS TO AVOID TRUNK ROTATION. Objective/Function: PATIENT WAS SEEN TODAY FOR RE-ASSESSMENT OF PROGRESS TOWARD THE SET PT GOALS AND THE NEED FOR FURTHER PHYSICAL THERAPY VS READINESS FOR DISCHARGE. PATIENT REPORTS DECREASED PAIN WITH LUMBAR ROM TESTING TODAY AND DEMO'S SMALL IMPROVEMENTS IN HER GRANT KNEE ROM. SHE IS A GOOD CANDIDATE TO CONTINUE PT BASED ON PROGRESS MADE AND ROOM FOR FURHTER IMPROVEMENT. PATIENT IS AGREEABLE. ENCOURAGED PATIENT TO TRY ONE TO TWO VISITS ON HER OWN BETWEEN NOW AND NEXT RE-CHECK IN PREPARATION FOR DISCHARGE. PATIENT AGREEABLE. UPON EXAM TODAY: ROM deficit: R KNEE ROM IN SUPINE WITH A HEEL SLIDE = -2 DEG EXT TO 118 DEG FLEXION. L KNEE = -2 DEG EXT TO 122 DEG FLEXION. ERP GRANT KNEE FLEXION. Motor deficit: GRANT LE'S GROSSLY 5/5 WITH MMT'ING NOW. Dural Signs: NEGATIVE GRANT LE'S. Lumbar mvmt loss: flex - NIL. ext - MOD. R SG - MIN. L SG - MOD. PATIENT DENIES INCREASED PAIN WITH LUMBAR ROM TESTING TODAY. Core strength: FAIR. Palpation: MILD CENTRAL LOWER LUMBAR TENDERNESS L345 REGION AND S1. Plan Plan: CONT PER POC DECREASING TO 1X/WK FOR CORRECTIONS AND PROGRESSIONS NEEDED/TOLERATED. PATIENT AGREEABLE. Balance/Gait/Functional tests - Balance/Special Test Scores Oswestry Low Back Score: 2 Lower Extremity Functional Score: 67 Goals Goal 1:: DECREASE C/O LOW BACK AND GRANT LE SX'S. Goal Time Frame: 6-8 Weeks Goal Progress: Progressing Goal 2:: IMPROVE STANDING, WALKING, TRAVEL AND WORK/HOMEMAKING FUNCTION Goal Time Frame: 6-8 Weeks Goal Progress: Progressing Goal 3:: INSTRUCT IN PROPHYLAXIS Goal Time Frame: 6-8 Weeks Goal Progress: Progressing Anticipated Interventions Patient/Client Instruction: Educate patient on: Condition, Plan of Care, Risk Factors For the Purpose of:: To improve self management Therapeutic Exercise to Include: Strength training, Body mechanics, Postural training, Flexibilty training, Gait and locomotor training, Neuromotor development, In an aquatic setting, Dynamic Lumbar Stabilization For the Purpose of:: To decrease pain, To improve muscle performance and motor function, To increase tolerance to activity/condition/position, To improve ability of physical actions for home/community/work/leisure, To improve gait and locomotor functions Please do not hesitate to contact me at [phone] by phone or if you have questions or concerns regarding this new plan of care! Sincerely, Deisy Piedra, PT, Cert MDT
--- NOTE | 2022-11-24 12:31 | HP.PT.NRP ---
AMY VALDOVINOS was seen in my office for initial evaluation on 06/02/22. The following Plan of Care was established for this patient: Initial Frequency: 2-3x /Week Initial Duration: 4-6 Weeks Patient/Client Instruction: Educate patient on: Condition, Plan of Care, Risk Factors For the Purpose of:: To improve self management Therapeutic Exercise to Include: Strength training, Body mechanics, Postural training, Flexibilty training, Gait and locomotor training, Neuromotor development, In an aquatic setting, Dynamic Lumbar Stabilization For the Purpose of:: To decrease pain, To improve muscle performance and motor function, To increase tolerance to activity/condition/position, To improve ability of physical actions for home/community/work/leisure, To improve gait and locomotor functions This patient was last seen in our office 08/29/22. Pertinent comments regarding their Physical therapy will appear below: This patient has not returned to Physical Therapy and is appropriate to return to MD for further follow-up as needed. At this point I will be discontinuing this patient from physical therapy. I would be happy to see this patient again in the future if found appropriate by the physician. Thank you! Deisy Piedra, PT, Cert MDT Balance/Gait/Functional tests - Balance/Special Test Scores Oswestry Low Back Score: 2 Lower Extremity Functional Score: 67
== END 2022-08-29 19:00 | disposition home or self-care (01) ==
LOC: PT 10:30
PROVIDERS: PCP Internal Medicine; Referring Provider Internal Medicine; Visit Provider Internal Medicine
DX: M25.569 Pain in unspecified knee; M54.16 Radiculopathy, lumbar region
CPT/HCPCS: 97113; 97162; 97164

== ENCOUNTER → 2022-09-12 | Outpatient (CLI) | payer OTHER, SELFPAY ==
--- NOTE | 2022-09-12 16:39 | RAD_ITS ---
STUDY: X-RAY CHEST REASON FOR EXAM: Female, 57 years old. PNEUMONIA TECHNIQUE: PA and lateral COMPARISON: July 02, 2021 FINDINGS: The lungs are clear and expanded. Minimal scarring in the left lower lobe. There is no demonstrated pleural abnormality. Normal size heart. Normal mediastinum and rosa. Normal visualized pulmonary arteries. Mildly tortuous and calcified aortic arch and descending thoracic aorta. Dorsal spine demonstrates degenerative changes. Normal visualized ribs, clavicles, and shoulders. There is no demonstrated abnormality of the visualized soft tissue structures of the upper abdomen. RAD/Chest PA and Lateral IMPRESSION: No acute cardiopulmonary pathology Electronically Signed: Blayne Jordan MD at 16:56 EST ,
== END | disposition home or self-care (01) ==
LOC: MTRAD 16:38
PROVIDERS: PCP Internal Medicine; Referring Provider Nurse Practitioner Family; Visit Provider Nurse Practitioner Family
DX: J18.9 Pneumonia, unspecified organism (principal); Q25.46 Tortuous aortic arch
CPT/HCPCS: 71046

== ENCOUNTER → 2022-10-21 | Outpatient (CLI) | payer OTHER, SELFPAY ==
--- NOTE | 2022-10-21 14:55 | CT_ITS ---
STUDY: CT ABDOMEN AND PELVIS WITH CONTRAST REASON FOR EXAM: Female, 57 years old. Follow up on renal cell carcinoma, due end of sep. -- Follow up on renal cell carcinoma, due end of sep. RADIATION DOSAGE (If Supplied By Facility): CTDIvol = ( 17.77 ) mGy, DLP = ( 1104.37 ) mGycm TECHNIQUE: Transaxial images were obtained from the dome of the diaphragm to the symphysis pubis with oral contrast. Oral and IV Readi-CAT and 100mL Isovue-300 was administered. Sagittal and coronal images were reconstructed. Individualized dose optimization techniques were used for this CT. COMPARISON: Comparison is made with prior examination dated March 26, 2021. FINDINGS: The visualized lung bases are unremarkable. The visualized portions of the heart are within normal limits. There is decreased attenuation of the liver consistent with steatosis. The patient is status post cholecystectomy. Normal spleen. Normal pancreas. Normal bilateral adrenal glands. Normal right kidney. The patient is status post partial left nephrectomy. There is a small hiatal hernia. Normal small intestine. There are multiple colonic diverticula consistent with diverticulosis. The appendix is visualized and appears normal. Normal abdominal aorta. Normal inferior vena cava. Normal retroperitoneum. Normal urinary bladder. There is absence of the uterus consistent with a prior hysterectomy. Normal abdominal wall. Normal osseous structures. CT/Abdomen/Pelvis WITH Contrast IMPRESSION: Stable examination. Electronically Signed: Jono Dumont MD at 15:33 EST ,
== END | disposition home or self-care (01) ==
LOC: CT 14:52
PROVIDERS: PCP Internal Medicine; Visit Provider Internal Medicine
DX: C64.9 Malignant neoplasm of unspecified kidney, except renal pelvis (principal)
CPT/HCPCS: 74177; Q9967

== ENCOUNTER 2022-11-21 10:56 | Outpatient (RCR) | payer OTHER, SELFPAY | END 2022-12-18 23:59 | LOC: NS 10:56 | PROVIDERS: PCP Internal Medicine; Visit Provider Internal Medicine | DX: E66.9 Obesity, unspecified (principal); Z68.33 Body mass index [BMI] 33.0-33.9, adult | CPT/HCPCS: 97802 ==

== ENCOUNTER → 2022-11-29 | Outpatient (CLI) | payer OTHER, SELFPAY ==
--- NOTE | 2022-11-29 14:50 | CT_ITS ---
STUDY: CT FACIAL BONES WITHOUT CONTRAST REASON FOR EXAM: Female, 57 years old. Facial pain RADIATION DOSAGE (If Supplied By Facility): CTDIvol = ( 33.06 ) mGy, DLP = ( 879.30 ) mGycm TECHNIQUE: The patient was scanned in a multi detector CT scanner. Sagittal and coronal images were reconstructed. Individualized dose optimization techniques were used for this CT. COMPARISON: None. FINDINGS: Normal soft tissue structures. Normal orbital bradford and orbital contents. Normal nasal bones and anterior nasal spine. Normal facial bones. There is no demonstrated fracture. Minimal mucosal thickening in the ethmoid sinuses. No muscle thickening noted in the frontal maxillary or sphenoid sinuses CT/Sinus/Facial Bone IMPRESSION: No demonstrated fracture or suspicious osseous lesion No soft tissue swelling or induration of the subcutaneous fat Ethmoid sinusitis Electronically Signed: Willian Johnson MD at 7:47 EDT ,
== END | disposition home or self-care (01) ==
LOC: CT 14:48
PROVIDERS: PCP Internal Medicine; Referring Provider Otolaryngology; Visit Provider Otolaryngology
DX: J32.8 Other chronic sinusitis (principal)
CPT/HCPCS: 70486

== ENCOUNTER → 2022-12-27 | Outpatient (CLI) | payer OTHER, SELFPAY ==
--- NOTE | 2022-12-27 15:42 | BI_ITS ---
MAMMOGRAPHY - BILATERAL SCREENING REASON FOR EXAM: Female, 57 years old. Routine annual screening examination. PERTINENT HISTORY: Non-contributory. TECHNIQUE: Digital bilateral breast kisha (3D mammographic acquisition) in the CC and MLO projections. 2-D mediolateral oblique (MLO) and craniocaudad (CC) views of both breasts were obtained. CAD: Full Field Digital Mammography with Computer Added Detection was performed. COMPARISON: Comparison is made with prior study dated November 26, 2021 and October 20, 2020. FINDINGS: Breast Composition: There are scattered areas of fibroglandular density. There are no dominant masses or suspicious calcifications. Stable benign-appearing bilateral axillary lymph nodes. No other significant abnormalities are identified. There has been no significant change since the prior study. BI/SCRN MAMM (CAD)W/KISHA BILAT IMPRESSION: Stable bilateral screening mammogram. Yearly follow-up mammogram recommended. (A) ASSESSMENT CATEGORY: BIRADS Category 2: Benign. A letter regarding these results will be sent to the patient by the facility within 30 days. Approximately 10% of breast cancers are not detected by mammography. A normal mammogram should not delay biopsy of a clinically suspicious abnormality. [id number] Electronically Signed: Jono Dumont MD at 9:03 EDT ,
--- NOTE | 2022-12-27 15:45 | BD_ITS ---
STUDY: DUAL ENERGY X-RAY ABSORPTIOMETRY / DXA REASON FOR EXAM: Female, 57 years old. [id number] -- postmenopausal, TECHNIQUE: Bone Mineral Density (BMD) measurements of lumbar spine and bilateral hips were obtained. COMPARISON: Comparison is made with prior study October 20, 2020. FINDINGS: Lumbar Spine (L1-L4): g/cm2 (1.020) / T-score (-0.2) / Z-score (1.0) Findings are suggestive of normal bone density with a low fracture risk. Left Femur Total: g/cm2 (0.94) / T-score (0.3) / Z-score (1.2) Left Femoral Neck: g/cm2 (0.773) / T-score (-0.7) / Z-score (0.5) Right Femur Total: g/cm2 (0.917) / T-score (-0.2) / Z-score (0.6) Right Femoral Neck: g/cm2 (0.752) / T-score (-0.9) / Z-score (0.3) The T-Scores on the most recent prior examination were: Lumbar Spine (L1-L4): There has been improvement of bone density since the previous examination. Left Femur Total: which represents an improvement of 1.4%. Right Femur Total: which represents a worsening of 0.9%. BD/Dexa Bone Density Study IMPRESSION: The patient is considered normal as outlined below according to World Carlos Organization (WHO) criteria with a low fracture risk. There has been improvement of bone density since the previous examination. Reference Information: The T-score is the number of standard deviations above or below the standard which is normal for young adults at their peak bone mineral density. The World Health Organization (WHO) interprets the T-scores as follows: Above -1 Normal bone density Between -1 and -2.5 Osteopenia Equal to / or below -2.5 Osteoporosis As a practical clinical guideline, osteopenia may be graded as follows: Mild -1 through -1.5 Moderate -1.6 through -2.0 Severe -2.1 through -2.4 The Z-score is the number of standard deviations above or below age-matched controls. A Z-score of less than -1.5 would be considered abnormal. References: 1. NIH Osteoporosis and Related Bone Diseases www osteo.org 2. International Society for Clinical Densitometry www iscd.org 3. National Osteoporosis Foundation www nof.org Electronically Signed: Jono Dumont MD at 12:36 EDT ,
== END | disposition home or self-care (01) ==
PROVIDERS: PCP Internal Medicine; Referring Provider Internal Medicine; Visit Provider Internal Medicine
DX: Z12.31 Encounter for screening mammogram for malignant neoplasm of breast (principal); Z78.0 Asymptomatic menopausal state
CPT/HCPCS: 77063; 77067; 77080

== ENCOUNTER → 2023-05-11 | Outpatient (CLI) | payer OTHER, SELFPAY ==
--- NOTE | 2023-05-11 12:47 | US_ITS ---
STUDY: THYROID ULTRASOUND REASON FOR EXAM: Female, 57 years old. Multiple thyroid nodules TECHNIQUE: Ultrasound evaluation of the thyroid was performed with real-time and static acharya-scale imaging. COMPARISON: March 28, 2022 ultrasound thyroid, January 20, 2020 ultrasound thyroid FINDINGS: RIGHT LOBE: The right lobe of the thyroid gland measures 5.8 x 2.5 x 2.6 cm. There is a heterogeneous echotexture. Within the right thyroid there is a solid 0.9 x 1 x 0.9 cm mid pole nodule. There is a 1.3 x 1.4 x 0.7 cm midpole nodule. There is a solid solid 1.3 x 1.2 x 1.3 cm inferior focal nodule. There is a solid 2.1 x 2 x 1.9 cm inferolateral pole nodule. LEFT LOBE: The left lobe of the thyroid gland measures 4.6 x 2 x 1.5 cm. There is a heterogeneous echotexture. In the mid pole of the left artery there is a by 8 x 6 mm nodule. There is a 1 x 0 0.9 to 0.6 cm nodule. In the inferior aspect there is a 0.7 x 0.6 x 0.3 cm nodular and a hypoechoic 0.6 x 0.5 x 0.3 cm hypoechoic nodule. ISTHMUS: The isthmus measures 1.9 mm . The regional lymph nodes are normal. US/Thyroid IMPRESSION: Enlarged multinodular thyroid. Findings are fairly similar to the prior study. There is a nodule extending from the inferior aspect of the right thyroid which is a fairly dominant appearing solid mass that appears to be wider than tall isoechoic fairly smooth border. This is following into a category of mildly suspiciousTR3. Recommend continued follow-up since this is a greater than 1.5 cm nodule. Electronically Signed: Adry Mathew MD at 5:36 EDT ,
== END | disposition home or self-care (01) ==
LOC: US 12:45
PROVIDERS: PCP Internal Medicine; Referring Provider Internal Medicine; Visit Provider Internal Medicine
DX: E04.2 Nontoxic multinodular goiter (principal)
CPT/HCPCS: 76536

== ENCOUNTER → 2023-07-20 | Outpatient (CLI) | payer OTHER, SELFPAY ==
--- NOTE | 2023-07-20 13:53 | CDU_ITS ---
Reason For Study: carotid stenosis Rt. Velocities/BP Lt. Velocities/BP Prox CCA 77.8/20.1 cm/sec. Prox CCA 102.5/23.4 cm/sec. Mid CCA 99.2/24.5 cm/sec. Mid CCA 88.3/23.4 cm/sec. Dist CCA 77.3/20.1 cm/sec. Dist CCA 77.3/20.1 cm/sec. Prox ICA 65.2/17.9 cm/sec. Prox ICA 58.6/19.0 cm/sec. Mid ICA 70.7/26.7 cm/sec. Mid ICA 78.1/30.5 cm/sec. Dist ICA 74.0/33.3 cm/sec. Dist ICA 74.0/24.9 cm/sec. Rt. ICA/CCA = .7. Lt. ICA/CCA = .9. Prox ECA 69.6/9.1 cm/sec. Prox ECA 65.2/12.4 cm/sec. Rt. Vert. 30.0/9.1 cm/sec. Lt. Vert. 29.8/10.2 cm/sec. Right Extracranial There is intimal thickening but no significant atherosclerotic plaque noted in the right common carotid artery. There is heterogeneous, irregular atherosclerotic plaque noted in the right internal carotid artery. There is intimal thickening but no significant atherosclerotic plaque noted in the right external carotid artery. Antegrade flow is noted in the right vertebral artery. Left Extracranial There is intimal thickening but no significant atherosclerotic plaque noted in the left common carotid artery. There is intimal thickening but no significant atherosclerotic plaque noted in the left internal carotid artery. The left internal carotid artery is very tortuous. There is intimal thickening but no significant atherosclerotic plaque noted in the left external carotid artery. Antegrade flow is noted in the left vertebral artery. Procedure Carotid Duplex [id number]. This is a Carotid Duplex examination using B-mode, color flow and specral Doppler. The exam was diagnostic. Exam performed in department. VL/Carotid Duplex Ultrasound Interpretation Summary Mild (<50%) stenosis right extracranial internal carotid. No significant athero sclerotic plaque or stenosis noted in the left internal carotid artery. Flow within the vertebral a rteries is antegrade bilaterally. Ordering Physician: Marcelle Morales Performed By: Michael Soria RVT
== END | disposition home or self-care (01) ==
LOC: CVS 13:52
PROVIDERS: PCP Internal Medicine; Referring Provider Internal Medicine; Visit Provider Internal Medicine
DX: I65.21 Occlusion and stenosis of right carotid artery (principal)
CPT/HCPCS: 93880

== ENCOUNTER → 2023-09-27 | Outpatient (CLI) | payer OTHER, SELFPAY ==
--- NOTE | 2023-09-27 13:56 | RAD_ITS ---
STUDY: X-RAY - PELVIS AND RIGHT HIP REASON FOR EXAM: Female, 58 years old. BURSITIS OF HIP TECHNIQUE: 3 views of the pelvis and hip. COMPARISON: None. FINDINGS: There is a non-specific bowel gas pattern. Normal visualized soft tissue structures. There are multiple calcified phleboliths. There is narrowing with cortical sclerosis and osteophyte formation of the sacroiliac joint consistent with degenerative osteoarthritic changes. Normal bilateral superior and inferior pubic rami. Normal pubic symphysis. Normal bilateral ischial tuberosities. Normal visualized femoral head. Normal acetabulum. There is mild articular joint space narrowing of the hip. RAD/HIP, UNI W/ Pelvis 2-3 Views IMPRESSION: Mild multilevel degenerative disease as described. No acute fracture or subluxation of the right hip. Electronically Signed: Maye Morse MD at 23:26 EST ,
--- NOTE | 2023-09-27 13:56 | RAD_ITS ---
STUDY: X-RAY - LUMBAR SPINE REASON FOR EXAM: Female, 58 years old. LUMBAR RADICULOPATHY TECHNIQUE: 4 view(s) of the lumbar spine were obtained. COMPARISON: 07/26/2021. FINDINGS: Normal lumbar lordosis. Mild scoliosis with convexity to the left. Mild, grade 1 anterolisthesis of L4 on L5 (6 mm). There is multilevel endplate spondylosis of the lumbar vertebrae. There is multi-level degenerative disc disease with multi-level disc space narrowing. There is no demonstrated fracture. There is no demonstrated spondylolysis of the pars interarticulares. Multilevel bilateral facet hypertrophy. The soft tissue structures are unremarkable. RAD/L/S Spine Min 4 Views IMPRESSION: Multilevel spondylosis/degenerative disease with grade 1 anterolisthesis of L4 on L5. No pars defect. No acute fracture. Electronically Signed: Maye Morse MD at 23:13 EST ,
--- NOTE | 2023-09-27 13:56 | RAD_ITS ---
STUDY: X-RAY - LEFT KNEE REASON FOR EXAM: Female, 58 years old. PAIN TECHNIQUE: 4 view(s) of the knee. COMPARISON: None. FINDINGS: Osteophytosis of the distal femur, proximal tibia and posterior patella. Otherwise normal visualized distal femur. Normal visualized proximal tibia and fibula. Suboptimally seen proximal tibiofibular articulation. There is no demonstrated fracture. Large osteophyte formation of the patella. There is mild to moderate degenerative arthrosis of the medial femorotibial compartment. There is mild moderate degenerative arthrosis of the lateral femorotibial compartment. There is moderate degenerative arthrosis of the patellofemoral articulation. There is a soft tissue prominence in the suprapatellar region suggesting a small volume joint effusion. The soft tissue structures are unremarkable. RAD/Knee 4 or More Views IMPRESSION: Degenerative disease as described with moderate joint effusion. No acute fracture or subluxation. Electronically Signed: Maye Morse MD at 0:41 EST ,
--- NOTE | 2023-09-27 13:56 | RAD_ITS ---
STUDY: X-RAY - RIGHT KNEE REASON FOR EXAM: Female, 58 years old. PAIN TECHNIQUE: 4 view(s) of the knee. COMPARISON: None. FINDINGS: Prominent osteophytosis of the distal femur, posterior patella and proximal tibia. Otherwise normal visualized distal femur. Normal visualized proximal tibia and fibula. There is arthrosis of the proximal tibiofibular articulation. There is no demonstrated fracture. There is moderate to severe degenerative arthrosis of the medial femorotibial compartment with moderate joint space narrowing. There is mild degenerative arthrosis of the lateral femorotibial compartment. There is moderate to severe degenerative arthrosis of the patellofemoral articulation. Minimal joint effusion with small calcification seen cephalad, cannot exclude small loose body measuring 1 cm. The soft tissue structures are unremarkable. RAD/Knee 4 or More Views IMPRESSION: Degenerative disease as described, more severe through the medial joint compartment and patellofemoral articulation. Minimal joint effusion. No acute fracture or subluxation. Electronically Signed: Maye Morse MD at 2:49 EST ,
== END | disposition home or self-care (01) ==
PROVIDERS: PCP Internal Medicine; Referring Provider Internal Medicine; Visit Provider Internal Medicine
DX: M54.16 Radiculopathy, lumbar region (principal); M70.71 Other bursitis of hip, right hip; M25.561 Pain in right knee; M25.562 Pain in left knee
CPT/HCPCS: 72110; 73502; 73564

== ENCOUNTER 2023-10-17 10:26 | Outpatient (RCR) | payer OTHER, SELFPAY | END 2023-10-19 23:59 | LOC: NS 10:26 | PROVIDERS: PCP Internal Medicine; Referring Provider Internal Medicine; Visit Provider Internal Medicine | DX: Z71.3 Dietary counseling and surveillance (principal); E66.9 Obesity, unspecified; Z68.34 Body mass index [BMI] 34.0-34.9, adult | CPT/HCPCS: 97802 ==

== ENCOUNTER → 2023-10-30 | Outpatient (CLI) | payer OTHER, SELFPAY ==
--- NOTE | 2023-10-30 17:50 | CT_ITS ---
STUDY: CT CHEST T ABDOMEN WITHOUT CONTRAST REASON FOR EXAM: Female, 58 years old. Lung nodule RADIATION DOSAGE (If Supplied By Facility): CTDIvol = ( 14.45 ) mGy, DLP = ( 545.42 ) mGycm TECHNIQUE: Transaxial imaging was performed without the administration of intravenous contrast material. Multiplanar coronal and sagittal images were reformatted. Individualized dose optimization techniques were used for this CT. COMPARISON: Comparison is made with prior study dated September 06, 2018. FINDINGS: CHEST There is mild enlargement of the right lobe of the thyroid. Stable small benign-appearing bilateral axillary lymph nodes. Stable 3.2 mm noncalcified nodule in the posterior medial aspect of the right lower lobe as seen on axial image #56. There is no demonstrated pleural abnormality. There are calcifications of the coronary arteries. Normal mediastinum. Normal hilar regions. Normal unenhanced pulmonary arteries. Dilatation of the ascending thoracic aorta with a transverse dimension of 42.9 mm. There are degenerative changes of the thoracic spine. There is no demonstrated abnormality of the visualized upper abdomen. CT/Chest without Contrast IMPRESSION: Stable examination. Electronically Signed: Jono Dumont MD at 12:32 EDT ,
== END | disposition home or self-care (01) ==
PROVIDERS: PCP Internal Medicine; Referring Provider Internal Medicine; Visit Provider Internal Medicine
DX: R91.1 Solitary pulmonary nodule (principal)
CPT/HCPCS: 71250

== ENCOUNTER 2023-11-07 10:23 | Outpatient (RCR) | payer OTHER, SELFPAY | END 2023-11-19 23:59 | LOC: NS 10:23 | PROVIDERS: PCP Internal Medicine; Referring Provider Internal Medicine; Visit Provider Internal Medicine | DX: E66.9 Obesity, unspecified (principal); Z68.34 Body mass index [BMI] 34.0-34.9, adult | CPT/HCPCS: 97803 ==

== ENCOUNTER 2023-11-20 10:30 | Outpatient (RCR) | payer OTHER, SELFPAY ==
--- NOTE | 2023-10-25 10:05 | HP.PTEVAL ---
Patient's Visit Information Visit Information Visit Information: AMY VALDOVINOS is a 58 year old F referred to Physical Therapy by Dr. Marcelle Morales DO with a diagnosis of B knee pain, R hip bursitis, lumbar radiculopathy. Date of Evaluation: 10/24/23 Physical Therapist: Amadou Spence DPT Visit Plan Frequency: 2x /Week Duration: 4 Weeks Plan: Cont w/ POC. Subjective Subjective: Pt. is here today for her initial evaluation with diagnosis on B knee pain, OA, lumbar radiculopathy, and R hip bursitis. Pt. reports having similar symptoms previously, but this time might be a little different. 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 Pt. has increased pain in AM it feels stiff. Does not last too long as she loosens up. Pt. reports walking is usually better than sitting, but not always. She does have increased R knee pain at times as well as anterior ship pain. Pt. reports currently her biggest issue is with her R hip. Pt. was given steroid, but has not taken yet as it makes her feel funny. 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 Pain Lumbar spine: Pain Intensity (Out of 10): 2 Pain Intensity Range: 0 and 6 R lateral hip: Pain Intensity (Out of 10): 2 Pain Intensity Range: 1 and 5 R knee: Pain Intensity (Out of 10): 2 Pain Intensity Range: 0 and 4 L knee: Pain Intensity (Out of 10): 0 Pain Intensity Range: 0 and 3 Objective Objective: POSTURE: Pt. has pretty good posture in stance. No major lumbar abnormalities. Marked R knee varus positioning. PALPATION: Pt. is tender posterior to R greater trochanter and along IT band. Not much pain directly on greater trochanter. Pt. has some tenderness along L4/L5 region. She reports tenderness along R anterior tib, but not to palpation. NEURO: normal DTR and normal sensation to light and sharp touch. ROM: R knee: 0-5-110deg. L knee 0-2-118deg. Pt. has normal HS length. Tight B It bands, no increase in symptoms. R hip: normal IR, tightness into ER 55deg motion with mild increase in symptoms at end of available range. Tight hip flexor as well. Normal hip abd and flexion. LUMBAR SPINE: flexion nil loss NE, ext min/mod loss increase NW (better with repetition). MMT: BLEs 5/5 throughout; except hip abd 4+/5, ext 4+/5, 4+/5. Core strength: fair-. GAIT: Pt. has fairly normal gait pattern. Slight antalgic pattern during R stance phase. Pt. reports increased R posterior/lateral hip pain during stance phase (2-10/28). Special Tests L/S Slump test left side: Negative L/S Slump test right side: Negative L/S Left Straight Leg Raise: Negative L/S Right Straight Leg Raise: Negative Lumbar Standing: Flexion - Mechanical Response: No effect Lumbar Standing: Flexion - Symptoms During Testing: No effect Lumbar Standing: Flexion - Symptoms After Testing: No effect Lumbar Standing: Extension - Mechanical Response: No effect Lumbar Standing: Extension - Symptoms During Testing: Increases Lumbar Standing: Extension - Symptoms After Testing: No worse Lumbar Standing: Right Side Glides - Mechanical Response: No effect Lumbar Standing: Right Side Streetman - Symptoms During Testing: No effect Lumbar Standing: Right Side Streetman - Symptoms After Testing: No effect Lumbar Standing: Left Side Streetman - Mechanical Response: No effect Lumbar Standing: Left Side Streetman - Symptoms During Testing: No effect Lumbar Standing: Left Side Streetman - Symptoms After Testing: No effect Lumbar Lying: Flexion - Mechanical Response: No effect Lumbar Lying: Flexion - Symptoms During Testing: No effect Lumbar Lying: Flexion - Symptoms After Testing: No effect Lumbar Lying: Extension - Mechanical Response: No effect Lumbar Lying: Extension - Symptoms During Testing: Increases Lumbar Lying: Extension - Symptoms After Testing: No worse Comments:: better in ALEXANDER than end range extension. R Hip Scour: Negative R Hip JESSY - Intraarticular Pathology: Negative R Hip FADDIR - Labrum: Negative R Hip Trendelenberg - Glut Medius: Negative R Hip Daisy - IT Band: Positive Balance/Special Test Scores Lower Extremity Functional Score: 52 Goals Goal 1:: LTG: Pt. to be I with HEP. Goal Time Frame: 4-6 Weeks Goal 2:: LTG: pt. to have increased core strength, glute and quad strength to 5/5 throughout. Goal Time Frame: 4-6 Weeks Goal 3:: LTG: pt. 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 Goal Time Frame: 4-6 Weeks Goal 4:: STG: pt. to be able to complete all recreational walking without increase in symptoms. Goal Time Frame: 2-4 Weeks Rehabilitation Potential Physical Therapy Diagnosis: Pt. has signs and symptoms consistent with B knee pain, R hip bursitis, lumbar radiculopathy. Pt. has marked B knee hypomobility, B knee pain, R hip weakness and core weakness. Pt. would benefit from PT to address the her above limitations. Due to her R knee I would like her to work on the aquatic setting with focus on strength/stability without exacerbating her B knee pain. Rehabilitation Potential: Good Anticipated Interventions Patient/Client Instruction: Educate patient on: Condition, Plan of Care, Risk Factors and Benefits of Fitness Program Therapeutic Exercise to Include: Body mechanics, Postural training, Flexibilty training and In an aquatic setting For the Purpose of:: To decrease pain, To increase ROM, To improve nutrient delivery to tissue, To increase oxygenation perfusion and To improve muscle performance and motor function Text: Thank you for the opportunity to evaluate your patient. For Medicare and Medicare HMO plans, please review the plan of care and approve it. It will need to be FAXED BACK to us at [phone] for Medicare purposes. For Medicare only, by signing this I certify the plan of care. Please let me know if there are questions or concerns regarding this plan of care. Physician Signature: Date:
--- NOTE | 2023-11-20 14:00 | HP.PTREVAL_ITS ---
Re-Evaluation Intro: Dr. Marcelle Morales, DO, It has been my pleasure to treat AMY VALDOVINOS over the last 9 visits for B knee pain, R hip bursitis, lumbar radiculopathy. Please see the progress note below for an update on the physical therapy plan of care! Subjective Subjective: Pt. reports having 1/10 pain pre treatment today. She was off for a week and thinks this might have helped. Mostly pain in her LB this date. Objective Objective/Function: ROM: Lumbar spine: flexion nil loss NE, ext min loss decrease better with repetition, SB normal bilaterally. rotation min loss without increase in symptoms. MMT: PT. has good strength in BLEs, core strength poor+. GAIT: pt. has normal gait pattern. Overall Amy is doing better, but would like to try out working out prior to being DCed. Plan Plan Plan: Pt. to trial PT on her own for a few weeks. Pt. to follow back up in a few weeks. Balance/Gait/Functional tests Balance/Special Test Scores Lower Extremity Functional Score: 57 Goals Goals Goal 1:: LTG: Pt. to be I with HEP. Goal Time Frame: 4-6 Weeks Goal Progress: Progressing Goal 2:: LTG: pt. to have increased core strength, glute and quad strength to 5/5 throughout. 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 Goal Time Frame: 4-6 Weeks Goal Progress: Progressing Goal 4:: STG: pt. to be able to complete all recreational walking without increase in symptoms. Goal Time Frame: 2-4 Weeks Goal Progress: Progressing Anticipated Interventions Anticipated Interventions Patient/Client Instruction: Educate patient on: Condition, Plan of Care, Risk Factors and Benefits of Fitness Program Therapeutic Exercise to Include: Body mechanics, Postural training, Flexibilty training and In an aquatic setting For the Purpose of:: To decrease pain, To increase ROM, To improve nutrient delivery to tissue, To increase oxygenation perfusion and To improve muscle per formance and motor function Re-Evaluation Ending Re-evaluation ending: Please do not hesitate to contact me at [phone] by phone or if you have questions or concerns regarding this new plan of care! Sincerely, Amadou Spence, DPT
== END 2023-11-20 19:00 | disposition home or self-care (01) ==
LOC: PT 10:30
PROVIDERS: PCP Internal Medicine; Referring Provider Internal Medicine; Visit Provider Internal Medicine
DX: M25.562 Pain in left knee (principal); M25.561 Pain in right knee; M54.16 Radiculopathy, lumbar region; M70.71 Other bursitis of hip, right hip
CPT/HCPCS: 97113; 97161; 97164

== ENCOUNTER 2023-11-29 10:49 | Outpatient (RCR) | payer OTHER, SELFPAY | END 2023-12-19 23:59 | LOC: NS 10:49 | PROVIDERS: PCP Internal Medicine; Referring Provider Internal Medicine; Visit Provider Internal Medicine | DX: Z71.3 Dietary counseling and surveillance (principal); E66.9 Obesity, unspecified; Z68.34 Body mass index [BMI] 34.0-34.9, adult | CPT/HCPCS: 97803 ==

== ENCOUNTER → 2023-12-28 | Outpatient (CLI) | payer OTHER, SELFPAY ==
--- NOTE | 2023-12-28 09:03 | US_ITS ---
STUDY: ABDOMINAL ULTRASOUND - RIGHT UPPER QUADRANT REASON FOR VISIT: Female, 58 years old fatty liver TECHNIQUE: Ultrasound evaluation of the right upper quadrant was performed with real-time and static acharya-scale imaging. TECHNICAL QUALITY: Adequate. COMPARISON: None. FINDINGS: Liver: The liver measures 16.1 cm. There is increased echogenicity consistent with fatty infiltration. The bile ducts are within normal limits. There is hepatic color flow. The direction of portal flow is hepatopetal. There is no demonstrated mass lesion. Gallbladder: The patient is status post cholecystectomy. s. Common Bile Duct (C.B.D.): The common bile duct measures 5 mm. Pancreas: Normal size of the head, body and tail of the pancreas. There is normal echogenicity of the pancreas. There is no demonstrated pancreatic mass or cyst. Right Kidney: Normal size of the right kidney. The right kidney measures 11.3 cm. Normal renal cortex. The right cortex measures 1.1 cm. There is no demonstrated renal mass or cyst. There is no right hydronephrosis. US/Abdomen Limited IMPRESSION: Status post cholecystectomy with fatty infiltration of the liver. Electronically Signed: Frank Tinajero MD at 10:46 EDT ,
--- NOTE | 2023-12-28 09:04 | RAD_ITS ---
STUDY: X-RAY - ESOPHAGUS (BARIUM SWALLOW) WITH FLUOROSCOPY REASON FOR EXAM: Female, 58 years old. DYSPHAGIA TECHNIQUE: 16 view(s) of the esophagus were obtained following swallowing of barium. FLUOROSCOPY TIME (if supplied): (27 sex) minutes/seconds. 6.54 mGy. COMPARISON: None. FINDINGS: There is no demonstrated esophageal foreign body. There is no demonstrated stricture or mucosal abnormality. There is evidence of a small sliding hiatal hernia without gastroesophageal reflux. The patient ingested a 12 mm tablet of barium without any difficulty. Normal visualized aortic arch and descending thoracic aorta. Normal visualized pulmonary parenchyma. Normal visualized osseous structures of the thorax. RAD/Esophagus Dual Contrast IMPRESSION: Small sliding hiatal hernia without gastroesophageal reflux. Electronically Signed: Jono Dumont MD at 11:04 EDT ,
== END | disposition home or self-care (01) ==
PROVIDERS: PCP Internal Medicine; Referring Provider Internal Medicine; Visit Provider Internal Medicine
DX: R13.10 Dysphagia, unspecified (principal); K76.0 Fatty (change of) liver, not elsewhere classified
CPT/HCPCS: 74221; 76705

== ENCOUNTER 2024-01-02 09:56 | Outpatient (RCR) | payer OTHER, SELFPAY | END 2024-01-19 23:59 | LOC: NS 09:56 | PROVIDERS: PCP Internal Medicine; Referring Provider Internal Medicine; Visit Provider Internal Medicine | DX: Z71.3 Dietary counseling and surveillance (principal); E66.9 Obesity, unspecified; Z68.34 Body mass index [BMI] 34.0-34.9, adult | CPT/HCPCS: 97803 ==

== ENCOUNTER → 2024-03-27 | Outpatient (CLI) | payer OTHER, SELFPAY ==
--- NOTE | 2024-03-27 08:46 | BI_ITS ---
MAMMOGRAPHY - BILATERAL SCREENING REASON FOR EXAM: Female, 58 years old. Routine annual screening examination. PERTINENT HISTORY: Non-contributory. TECHNIQUE: Digital bilateral breast kisha (3D mammographic acquisition) in the CC and MLO projections. 2-D mediolateral oblique (MLO) and craniocaudad (CC) views of both breasts were obtained. CAD: Full Field Digital Mammography with Computer Added Detection was performed. COMPARISON: Comparison is made with prior study December 27, 2022 and November 26, 2021. FINDINGS: Breast Composition: There are scattered areas of fibroglandular density. There are no dominant masses or suspicious calcifications. Stable benign-appearing bilateral axillary lymph nodes. No other significant abnormalities are identified. There has been no significant change since the prior study. BI/SCRN MAMM (CAD)W/KISHA BILAT IMPRESSION: Stable bilateral screening mammogram. Yearly follow-up mammogram recommended. (A) ASSESSMENT CATEGORY: BIRADS Category 2: Benign. A letter regarding these results will be sent to the patient by the facility within 30 days. Approximately 10% of breast cancers are not detected by mammography. A normal mammogram should not delay biopsy of a clinically suspicious abnormality. [id number] Electronically Signed: Jono Dumont MD at 10:11 EDT ,
== END | disposition home or self-care (01) ==
LOC: OPBI 08:31
PROVIDERS: PCP Internal Medicine; Referring Provider Internal Medicine; Visit Provider Internal Medicine
DX: Z12.31 Encounter for screening mammogram for malignant neoplasm of breast (principal)
CPT/HCPCS: 77063; 77067

== ENCOUNTER → 2024-04-05 | Outpatient (CLI) | payer OTHER, SELFPAY ==
--- NOTE | 2024-04-05 12:50 | ECHOD_ITS ---
Reason For Study: Nonrheumatic MR Procedure This was a 2D Doppler, Color Flow transthoracic echocardiogram. Myocardial strain analysis was performed in this exam to aid in the assessment of cardiac function. Left Nephrectomy. Exam performed in department. Left Ventricle Normal LV size. The estimated ejection fraction is 55 %. Diastolic function is indeterminate. No regional wall motion abnormalities noted. Right Ventricle Normal RV size. Normal systolic function. Atria There is mild biatrial dilatation. No doppler evidence for ASD. Mitral Valve There is no mitral valve stenosis. Mild (1+) mitral valve insufficiency. Tricuspid Valve There is no tricuspid stenosis. Mild tricuspid valve insufficiency. Pulmonary artery systolic pressure is 25 mmHg. Aortic Valve Trisinus/trileaflet aortic valve. There is no aortic stenosis. No aortic valve insufficiency. Pulmonic Valve There is no pulmonic valvular stenosis. Trivial pulmonic valve insufficiency. Great Vessels Mildly dilated aortic root. Pericardium/Pleural No pericardial effusion. MMode/2D Measurements & Calculations LVIDd: 4.7 cm IVSd: 1.5 cm Ao root diam: 4.5 cm LVIDs: 2.9 cm LVPWd: 1.4 cm LA dimension: 4.6 cm RVDd: 4.5 cm FS: 37.7 % LAV(MOD-bp): 76.7 ml LA A4 area: 23.5 cm2 RA A4 area: 19.3 cm2 LAV(MOD-bp) Indexed: 37.3 ml/m2 LAV(MOD-sp2): 71.5 ml LAV(MOD-sp4): 78.2 ml TAPSE: 2.3 cm Time Measurements MV dec time: 0.27 sec Doppler Measurements & Calculations MV E max nicolás: 74.4 cm/sec Lat Peak E' Nicolás: 7.6 cm/sec Med Peak E' Nicolás: 7.0 cm/sec MV A max nicolás: 88.5 cm/sec E/E' lat: 9.8 E/E' med: 10.6 MV E/A: 0.84 MV V2 max: 100.0 cm/sec MV P1/2t max nicolás: 103.0 cm/sec Ao V2 max: 187.1 cm/sec MV max P.0 mmHg MV P1/2t: 101.7 msec Ao max P.0 mmHg MV V2 mean: 57.2 cm/sec Ao V2 mean: 124.5 cm/sec MV mean P.6 mmHg MV dec slope: 296.7 cm/sec2 Ao mean P.2 mmHg MV V2 VTI: 36.0 cm MVA(P1/2t): 2.2 cm2 Ao V2 VTI: 41.4 cm AV (velocity ratio): 0.59 LV V1 max: 88.0 cm/sec MR max nicolás: 585.6 cm/sec PA V2 max: 89.8 cm/sec LV V1 max P.1 mmHg MR max P.2 mmHg PA max PG (full): 0.90 mmHg LV V1 mean P.1 mmHg MR mean nicolás: 436.7 cm/sec PA V2 mean: 63.2 cm/sec LV V1 mean: 68.8 cm/sec MR mean P.8 mmHg PA mean PG (full): 0.50 mmHg LV V1 VTI: 24.5 cm MR VTI: 230.5 cm TR max nicolás: 238.3 cm/sec TR max P.7 mmHg ECHO/Echo Complete Interpretation Summary The estimated ejection fraction is 55 %. Diastolic function is indeterminate. Mild (1+) mitral valve insufficiency. Mildly dilated aortic root. Ordering Physician: Marcelle Morales Referring Physician: Marcelle Morales Performed By: Aris Yin RCS
== END | disposition home or self-care (01) ==
LOC: CVS 12:50
PROVIDERS: PCP Internal Medicine; Referring Provider Internal Medicine; Visit Provider Internal Medicine
DX: I34.0 Nonrheumatic mitral (valve) insufficiency (principal)
CPT/HCPCS: 93306

== ENCOUNTER 2024-06-18 11:29 | Outpatient (RCR) | payer OTHER, SELFPAY | END 2024-06-20 23:59 | LOC: NS 11:29 | PROVIDERS: PCP Internal Medicine; Referring Provider Internal Medicine; Visit Provider Internal Medicine | DX: Z71.3 Dietary counseling and surveillance (principal); E66.9 Obesity, unspecified; Z68.34 Body mass index [BMI] 34.0-34.9, adult | CPT/HCPCS: 97803 ==

== ENCOUNTER 2024-07-16 11:30 | Outpatient (RCR) | payer OTHER, SELFPAY | END 2024-07-20 23:59 | LOC: NS 11:30 | PROVIDERS: PCP Internal Medicine; Referring Provider Internal Medicine; Visit Provider Internal Medicine | DX: Z71.3 Dietary counseling and surveillance (principal); E66.9 Obesity, unspecified; Z68.34 Body mass index [BMI] 34.0-34.9, adult | CPT/HCPCS: 97803 ==

== ENCOUNTER → 2024-07-16 | Outpatient (CLI) | payer OTHER, SELFPAY ==
--- NOTE | 2024-07-16 10:01 | CDU_ITS ---
Reason For Study: Carotid stenosis Rt. Velocities/BP Lt. Velocities/BP Prox CCA 78.7/21.1 cm/sec. Prox CCA 94.8/23.9 cm/sec. Mid CCA 90/25.8 cm/sec. Mid CCA 75.9/23.9 cm/sec. Dist CCA 81.5/27.7 cm/sec. Dist CCA 71.1/23.9 cm/sec. Prox ICA 52.2/17.3 cm/sec. Prox ICA 49.4/20.1 cm/sec. Mid ICA 71.1/30.5 cm/sec. Mid ICA 72.4/34.8 cm/sec. Dist ICA 68.3/34.3 cm/sec. Dist ICA 63/25.6 cm/sec. Rt. ICA/CCA = 0.79. Lt. ICA/CCA = 0.95. Prox ECA 60.7/9.7 cm/sec. Prox ECA 50.4/13.5 cm/sec. Rt. Vert. 51.3 cm/sec. Lt. Vert. 38.8/17.9 cm/sec. Right Extracranial There is intimal thickening but no significant atherosclerotic plaque noted in the right common carotid artery. There is heterogeneous, irregular atherosclerotic plaque noted in the right internal carotid artery. There is intimal thickening but no significant atherosclerotic plaque noted in the right external carotid artery. Antegrade flow is noted in the right vertebral artery. Left Extracranial There is intimal thickening but no significant atherosclerotic plaque noted in the left common carotid artery. There is intimal thickening but no significant atherosclerotic plaque noted in the left internal carotid artery. The left internal carotid artery is very tortuous. There is intimal thickening but no significant atherosclerotic plaque noted in the left external carotid artery. Antegrade flow is noted in the left vertebral artery. Procedure Carotid Duplex 78428. This is a Carotid Duplex examination using B-mode, color flow and specral Doppler. Exam performed in department. VL/Carotid Duplex Ultrasound Interpretation Summary Mild (<50%) stenosis right extracranial internal carotid. Normal left extracranial internal carotid. Patent and antegrade vertebrals bilaterally. Ordering Physician: Marcelle Morales Referring Physician: Marcelle Morales Performed By: Lucinda Valdez RVT
--- NOTE | 2024-07-16 10:01 | US_ITS ---
EXAM: US SOFT TISSUES HEAD AND NECK, THYROID CLINICAL INDICATION: Thyroid US - multiple thyroid nodules -- Thyroid US - multiple thyroid nodules TECHNIQUE: Carmona scale and color doppler imaging was performed of the thyroid gland. COMPARISON: US Thyroid dated 05/11/2023 and 03/28/2022 FINDINGS: LEFT THYROID LOBE: Left thyroid lobe measures 4.4 x 1.7 x 1.4 cm with persistent heterogeneous and somewhat multinodular echotexture. Stable 11 mm dominant nodule noted within the midportion of the left thyroid lobe. RIGHT THYROID LOBE: Right thyroid lobe measures 5.3 x 2.6 x 2.2 cm. Multinodular appearance unchanged from prior exam. The bilobed exophytic solid nodule projecting inferior and posterior to the right thyroid lobe is not significantly changed from prior exam measuring 2.7 cm in length. Additional 14 mm right thyroid nodule also unchanged. ISTHMUS: Isthmus measures 3 mm in AP dimension. No thyroid nodules are present. US/Thyroid IMPRESSION: No interval change in the multinodular thyroid gland. Electronically Signed: Tam Matias MD at 9:18 EST ,
== END | disposition home or self-care (01) ==
PROVIDERS: PCP Internal Medicine; Referring Provider Internal Medicine; Visit Provider Internal Medicine
DX: E04.2 Nontoxic multinodular goiter (principal); I65.23 Occlusion and stenosis of bilateral carotid arteries
CPT/HCPCS: 76536; 93880

== ENCOUNTER 2024-08-19 11:00 | Outpatient (RCR) | payer OTHER, SELFPAY | END 2024-08-20 23:59 | LOC: NS 11:00 | PROVIDERS: PCP Internal Medicine; Referring Provider Internal Medicine; Visit Provider Internal Medicine | DX: Z71.3 Dietary counseling and surveillance (principal); E66.9 Obesity, unspecified; Z68.34 Body mass index [BMI] 34.0-34.9, adult | CPT/HCPCS: 97803 ==

== ENCOUNTER 2024-09-19 10:26 | Outpatient (RCR) | payer OTHER, SELFPAY | END 2024-09-20 23:59 | LOC: NS 10:26 | PROVIDERS: PCP Internal Medicine; Referring Provider Internal Medicine; Visit Provider Internal Medicine | DX: Z71.3 Dietary counseling and surveillance (principal); E66.9 Obesity, unspecified; Z68.35 Body mass index [BMI] 35.0-35.9, adult | CPT/HCPCS: 97803 ==

== ENCOUNTER 2024-10-08 11:25 | Outpatient (RCR) | payer OTHER, SELFPAY | END 2024-10-18 23:59 | LOC: NS 11:25 | PROVIDERS: PCP Internal Medicine; Referring Provider Internal Medicine; Visit Provider Internal Medicine | DX: Z71.3 Dietary counseling and surveillance (principal); E66.9 Obesity, unspecified | CPT/HCPCS: 97803 ==

== ENCOUNTER 2024-10-29 10:58 | Outpatient (RCR) | payer OTHER, SELFPAY | END 2024-11-18 23:59 | LOC: NS 10:58 | PROVIDERS: PCP Internal Medicine; Referring Provider Internal Medicine; Visit Provider Internal Medicine | DX: Z71.3 Dietary counseling and surveillance (principal); E66.9 Obesity, unspecified; Z68.35 Body mass index [BMI] 35.0-35.9, adult | CPT/HCPCS: 97803 ==

== ENCOUNTER 2024-11-21 10:01 | Outpatient (RCR) | payer OTHER, SELFPAY | END 2024-12-18 23:59 | LOC: NS 10:01 | PROVIDERS: PCP Internal Medicine; Referring Provider Internal Medicine; Visit Provider Internal Medicine | DX: Z71.3 Dietary counseling and surveillance (principal); E66.9 Obesity, unspecified; Z68.35 Body mass index [BMI] 35.0-35.9, adult | CPT/HCPCS: 97803 ==

== ENCOUNTER 2024-12-26 09:59 | Outpatient (RCR) | payer OTHER, SELFPAY | END 2025-01-18 23:59 | LOC: NS 09:59 | PROVIDERS: PCP Internal Medicine; Referring Provider Internal Medicine; Visit Provider Internal Medicine | DX: Z71.3 Dietary counseling and surveillance (principal); E66.9 Obesity, unspecified; Z68.35 Body mass index [BMI] 35.0-35.9, adult | CPT/HCPCS: 97803 ==

== ENCOUNTER → 2024-12-27 | Outpatient (CLI) | payer OTHER, SELFPAY ==
--- NOTE | 2024-12-27 13:41 | VDLE_ITS ---
Reason For Study Reason For Study: Pain RLE RIGHT LEFT GSV is normal. CFV is compressible, spontaneous, phasic, competent, CFV is compressible, spontaneous, phasic, competent and demonstrates normal augmentation. and demonstrates normal augmentation. FV is compressible, spontaneous, phasic, competent and demonstrates normal augmentation. POP V is compressible, spontaneous, phasic, competent and demonstrates normal augmentation. T/P Trunk is compressible. PTV is compressible. RT PerV is compressible. Procedure This is a venous duplex using B-mode, color flow and spectral Doppler. Exam performed in department. A preliminary report was called and/or faxed to Dr. Morales. VL/Venous Duplex US, Unilateral Interpretation Summary Deep veins of the right lower extremity are patent and compressible segmentally . There is no evidence of right lower extremity deep vein thrombosis. Valvular competence appears intact within the p roximal deep venous system on the right . The right great saphenous vein appears patent and compressible segmentally. The left common femoral vein is patent and compressible . Ordering Physician: Marcelle Morales Referring Physician: Marcelle Morales Performed By: Shabana Collazo, LORI, RVT
== END | disposition home or self-care (01) ==
LOC: CVS 13:38
PROVIDERS: PCP Internal Medicine; Referring Provider Internal Medicine; Visit Provider Internal Medicine
DX: M79.604 Pain in right leg (principal)
CPT/HCPCS: 93971

== ENCOUNTER 2025-01-28 08:25 | Outpatient (RCR) | payer OTHER, SELFPAY | END 2025-02-17 23:59 | LOC: NS 08:25 | PROVIDERS: PCP Internal Medicine; Referring Provider Internal Medicine; Visit Provider Internal Medicine | DX: Z71.3 Dietary counseling and surveillance (principal); E66.9 Obesity, unspecified; Z68.35 Body mass index [BMI] 35.0-35.9, adult | CPT/HCPCS: 97803 ==

== ENCOUNTER → 2025-02-20 | Outpatient (CLI) | payer OTHER, SELFPAY ==
[2025-02-20 13:20] LABS: CREATININE FINGERSTICK < 1.0 mg/dL (0.55-1.02); EGFR FINGERSTICK > 60.0000 mL/min (>60)
== END | disposition home or self-care (01) ==
LOC: CT 12:51
PROVIDERS: PCP Internal Medicine; Referring Provider Internal Medicine; Visit Provider Internal Medicine
DX: I77.810 Thoracic aortic ectasia (principal)
CPT/HCPCS: 71260; Q9967

== ENCOUNTER → 2025-02-22 | Outpatient (CLI) | payer OTHER, SELFPAY | END | disposition home or self-care (01) | PROVIDERS: PCP Internal Medicine; Referring Provider Internal Medicine; Visit Provider Internal Medicine | DX: K76.0 Fatty (change of) liver, not elsewhere classified (principal) | CPT/HCPCS: 76705; 76981 ==

== ENCOUNTER 2025-02-25 09:00 | Outpatient (RCR) | payer OTHER, SELFPAY ==
--- NOTE | 2025-01-22 17:48 | HP.PTEVAL_ITS ---
Patient's Visit Information Visit Information Visit Information: AMY VALDOVINOS is a 59 year old F referred to Physical Therapy by Dr. Marcelle Morales DO with a diagnosis of R knee pain/OA and lumbar radic. Date of Evaluation: 01/22/25 Physical Therapist: YAN Garber Visit Plan Frequency: 2x /Week Duration: 2 Months Plan: 2X/ week for 8 weeks for neutral spine cores stability, Hip flexor/Quad st retches, B hip and knee strengthening with HEP HEP: SLR, Bridge, Jonathan stretch with PT off the side of the mat table Subjective Subjective: Pt has pain in her R side, her knee and LP. 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 At that same time she was having pain and could not get to sleep. 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 The Dr did not do any images. She had DDD. Pt thinks that sometimes she feel that her pain is a separate issue but other times it can go together. Pt point to pain on the R LB and into her R buttock. She has knee pain on the outside of her R leg. She is better with her back pain when she is moving. She can not sit in a car for a long time or if she is on a soft surface it will hurt. She have neuropathy in her R foot. They are not sure where the neuropathy is coming from. Sometimes her hip will hurt with alternating on the steps. Pain R back/buttock pain: Pain Intensity (Out of 10): 3 R knee pain: Pain Intensity (Out of 10): 0 Objective Objective: Gait: Walks with decrease stance time on the R LE. Decreased stride length LE MMT: R hip flex 11.7 and L 10.5 R knee ext 14.6 and L 16.9 R knee flex 11.5 and L 9.7 R hip abd 12.2 and L 15.5 R hip extension 12.2 and L 13.1 Heel and toe raises: able with some UE support for balance Pt R piriformis slightly tighter than the L. Pt has tightness in B hip flexors/Quad tightness. Pt fatigues X 8 SLR on the R Balance/Special Test Scores Oswestry Low Back Score: 16 Goals Goal 1:: I HEP Goal Time Frame: 6-8 Weeks Goal 2:: Increase B LE strength (at the time of the eval: LE MMT: R hip flex 11.7 and L 10.5 R knee ext 14.6 and L 16.9 R knee flex 11.5 and L 9.7 R hip abd 12.2 and L 15.5 R hip extension 12.2 and L 13.1). Goal Time Frame: 6-8 Weeks Goal 3:: Be able to walk with more equal stance time with gait Goal Time Frame: 6-8 Weeks Goal 4:: Be able to complete 3 X 15 SLR without fatigue or weakness Goal Time Frame: 6-8 Weeks Goal 5:: Decrease back and R knee pain by 50% Goal Time Frame: 6-8 Weeks Rehabilitation Potential Rehabilitation Potential: Good Anticipated Interventions Patient/Client Instruction: Educate patient on: Condition and Plan of Care For the Purpose of:: To decrease pain, To increase ROM, To improve nutrient delivery to tissue, To improve muscle performance and motor function, To improve ability to perform ADL's, To increase tolerance to activity/condition/position, To improve performance and independence with ADL's, To decrease level of supervision to perform tasks, To improve ability of physical actions for home/community/work/leisure, To improve gait and locomotor functions, To improve health of tissue, To decrease soft tissue restriction and To increase flexibility/ROM Therapeutic Exercise to Include: Strength training, Postural training, Flexibilty training, Gait and locomotor training, Passive ROM, Active ROM and Dynamic Lumbar Stabilization For the Purpose of:: To decrease pain, To increase ROM, To improve nutrient delivery to tissue, To improve muscle performance and motor function, To improve ability to perform ADL's, To increase tolerance to activity/condition/position, To improve performance and independence with ADL's, To decrease level of supervision to perform tasks, To improve ability of physical actions for ho me/community/work/leisure, To improve gait and locomotor functions, To improve health of tissue, To decrease soft tissue restriction and To increase flexibility/ROM Functional Training to Include: Gait training For the Purpose of:: To improve gait and locomotor functions Manual Therapy Techniques to Include: Passive ROM and Soft tissue mobilization For the Purpose of:: To decrease pain, To increase ROM, To improve nutrient delivery to tissue, To improve muscle performance and motor function, To improve ability to perform ADL's, To increase tolerance to activity/condition/position, To improve performance and independence with ADL's, To decrease level of supervision to perform tasks, To improve ability of physical actions for home/community/work/leisure, To improve gait and locomotor functions, To improve health of tissue, To decrease soft tissue restriction and To increase flexibility/ROM Text: Thank you for the opportunity to evaluate your patient. For Medicare and Medicare HMO plans, please review the plan of care and approve it. It will need to be FAXED BACK to us at [phone] for Medicare purposes. For Medicare only, by signing this I certify the plan of care. Please let me know if there are questions or concerns regarding this plan of care. Physician Signature: Date:
--- NOTE | 2025-02-25 10:04 | HP.PTDCSUM ---
Discharge Summary D/C summary: It has been my pleasure to treat AMY VALDOVINOS referred by Dr. Marcelle Morales DO, with the diagnosis of R knee pain/OA and lumbar radic for a total of 8 visit(s). Discharge Date: 02/25/25 Please see the following information for a summary of their discharge status. Subjective Subjective: She still has not carried up a basket of laundry. She was able to walk up stairs alternating feet and that was good. She is improving. The past few days her pain has been decreased in her knee and back. Pt feels that PT is helping. She is seeing Annelise at 11 for more exercises for her back. Pt wants to try doing exercises on her own and some Annelise and if she is not getting better she may want to try some in the pool. Pain R back/buttock pain: Pain Intensity (Out of 10): 1 R knee pain: Pain Intensity (Out of 10): 0 L LE and hip: Pain Intensity (Out of 10): 1 Overall Improvement % Improvement: 85 Objective Objective/Function: R hip flex 14.9 and L 16.6 R knee ext 16 and L 18 R knee flex 12.3 and L 13.8 R hip abd 12.3 and L 15.5 R hip extension 15.5 and L 13.7 SLR X 10 on each side with no fatigue but some pulling in her back Gait: Walks with more equal stance time. She reports that as she fatigues she will start walking more wobbly but is doing better. Goals Goal 1:: I HEP Goal Progress: Goal Met Goal 2:: Increase B LE strength (at the time of the eval: LE MMT: R hip flex 11.7 and L 10.5 R knee ext 14.6 and L 16.9 R knee flex 11.5 and L 9.7 R hip abd 12.2 and L 15.5 R hip extension 12.2 and L 13.1). Goal Progress: Goal Met Goal 3:: Be able to walk with more equal stance time with gait Goal Progress: Goal Met Goal 4:: Be able to complete 3 X 15 SLR without fatigue or weakness Goal Progress: Progressing Goal 5:: Decrease back and R knee pain by 50% Goal Progress: Progressing Plan Plan: DC PT to [place] [facility] and training with Annelise D/C Information Discharge Comments: DC PT to [facility] d/c sentence: If there are questions or concerns regarding this patient's physical therapy, please feel free to call me at [phone]. Thank you for the referral of this patient. Sincerely, Laura Almaguer, MPT Balance/Gait/Functional tests Balance/Special Test Scores Oswestry Low Back Score: 11 Improvement % Improvement: 85
== END 2025-02-25 19:00 | disposition home or self-care (01) ==
LOC: PT 09:00
PROVIDERS: PCP Internal Medicine; Referring Provider Internal Medicine; Visit Provider Internal Medicine
DX: M25.561 Pain in right knee (principal); M17.11 Unilateral primary osteoarthritis, right knee; M54.16 Radiculopathy, lumbar region
CPT/HCPCS: 97110; 97162; 97530

== ENCOUNTER 2025-03-03 10:22 | Outpatient (RCR) | payer OTHER, SELFPAY | END 2025-03-20 23:59 | LOC: NS 10:22 | PROVIDERS: PCP Internal Medicine; Referring Provider Internal Medicine; Visit Provider Internal Medicine | DX: Z71.3 Dietary counseling and surveillance (principal); E66.9 Obesity, unspecified | CPT/HCPCS: 97803 ==

== ENCOUNTER 2025-03-24 09:59 | Outpatient (RCR) | payer OTHER, SELFPAY | END 2025-04-20 23:59 | LOC: NS 09:59 | PROVIDERS: PCP Internal Medicine; Referring Provider Internal Medicine; Visit Provider Internal Medicine | DX: Z71.3 Dietary counseling and surveillance (principal); E66.9 Obesity, unspecified; Z68.35 Body mass index [BMI] 35.0-35.9, adult | CPT/HCPCS: 97803 ==

== ENCOUNTER → 2025-04-01 | Outpatient (CLI) | payer OTHER, SELFPAY ==
--- NOTE | 2025-04-01 07:45 | BD_ITS ---
PROCEDURE: DEXA BONE DENSITY STUDY 04/01/2025 REASON FOR EXAM: F, age 59 y/o . Postmenopausal. TECHNIQUE: DEXA BONE DENSITY STUDY COMPARISON: Prior study dated December 27, 2022. FINDINGS: BMD and T-SCORES Lumbar spine: 1.081 g/cm2, T-score 0.3 Levels: L1 through L4 Change from prior: Improvement of 6%. Left femoral neck: 0.855 g/cm2, T-score 0.1 Femoral neck comparison data not recommended for monitoring change. Left total hip: 1.031 g/cm2, T-score 0.7 Change from prior: Improvement of 4.8%. Right femoral neck: 0.821 g/cm2, T-score -0.3 Femoral neck comparison data not recommended for monitoring change. Right total hip: 0.981 g/cm2, T-score 0.3 Change from prior: Improvement of 7%. The World Health Organization has defined the following categories based on bone density: Normal bone density: T-score equal to or greater than -1.0 Osteopenia: T-score between -1.0 and -2.5 Osteoporosis: T-score equal to or less than -2.5 The patient does meet the pharmacological treatment recommendations for prevention of osteoporosis. BD/Dexa Bone Density Study IMPRESSION: NORMAL T-SCORES. Recommend follow-up as clinically warranted. Reading Location: [place] [id number]
--- NOTE | 2025-04-01 07:45 | BI_ITS ---
EXAM: SCRN MAMM (CAD)W/KISHA BILAT DATE: 04/01/2025 CLINICAL HISTORY: F, Age 59 y/o , SCRN MAMM (CAD)W/KISHA BILAT DUE APR 14 TECHNIQUE: SCRN MAMM (CAD)W/KISHA BILAT COMPARISON: Prior exam(s) dated 03/27/2024, 12/27/2022, 11/26/2021. FINDINGS: TISSUE DENSITY: There are scattered areas of fibroglandular density. Bilateral Breast Mammographic Findings: No significant masses, calcifications or other abnormalities are identified. BI/SCRN MAMM (CAD)W/KISHA BILAT IMPRESSION: There is no mammographic evidence of malignancy. OVERALL FINAL ASSESSMENT BI-RADS 1: NEGATIVE. RECOMMENDATION: Routine annual follow-up in 1 Year A letter with findings and recommendations will be mailed to the patient. Reading Location: [id number]
== END | disposition home or self-care (01) ==
LOC: OPBD 07:44
PROVIDERS: PCP Internal Medicine; Referring Provider Internal Medicine; Visit Provider Internal Medicine
DX: Z12.31 Encounter for screening mammogram for malignant neoplasm of breast (principal); Z78.0 Asymptomatic menopausal state
CPT/HCPCS: 77063; 77067; 77080

== ENCOUNTER 2025-04-23 09:57 | Outpatient (RCR) | payer OTHER, SELFPAY | END 2025-05-20 23:59 | LOC: NS 09:57 | PROVIDERS: PCP Internal Medicine; Referring Provider Internal Medicine; Visit Provider Internal Medicine | DX: Z71.3 Dietary counseling and surveillance (principal); E66.9 Obesity, unspecified | CPT/HCPCS: 97803 ==

== ENCOUNTER 2025-06-05 09:54 | Outpatient (RCR) | payer OTHER, SELFPAY | END 2025-06-20 23:59 | LOC: NS 09:54 | PROVIDERS: PCP Internal Medicine; Referring Provider Internal Medicine; Visit Provider Internal Medicine | DX: Z71.3 Dietary counseling and surveillance (principal); E66.9 Obesity, unspecified; Z68.35 Body mass index [BMI] 35.0-35.9, adult | CPT/HCPCS: 97803 ==

== ENCOUNTER → 2025-07-28 | Outpatient (CLI) | payer OTHER, SELFPAY ==
[2025-07-28 11:00] LABS: Hematocrit 42.1 % (37-47); Hemoglobin 13.8 g/dL (12.0-15.0); Immature Granulocytes Count 0.030 X10^3/uL (0.0-0.0); Mean Corp Hgb Conc 32.8 g/dL (32-36); Mean Corpuscular Volume 85.4 fL (81-99); Mean Platelet Vol. 10.6 fl (6.2-12.0); NRBC Flagged by Analyzer 0 % (0-5); Platelet Count 248 K/mm3 (150-450); RBC Distribution Width CV 14.3 % (11.6-14.6); RBC Distribution Width SD 43.7 fl (35.1-43.9); Red Blood Count 4.93 M/mm3 (4.2-5.4); White Blood Count 8.3 K/mm3 (4.4-11.0)
[2025-07-28 12:55] LABS: AST(SGOT) 21 U/L (<=31); Alanine Aminotransfer ALT/SGPT 25 U/L (<=34); Albumin, Serum 4.3 g/dL (3.4-4.8); Alkaline Phosphatase 69 U/L (35-104); Anion Gap 12 (5-15); BUN 19 mg/dL (4-19); BUN/Creat Ratio 25.9 RATIO (10-20); Calcium,Total 9.1 mg/dL (7.6-11.0); Carbon Dioxide 25.0 mmol/L (21.0-32.0); Chloride 102 mmol/L (98-108); Cholesterol 185 mg/dL (<=200); Globulin 3.0 g/dL (2.2-4.2); Glucose 96 mg/dL (70-99); Low Density Lipoprotein Calc. 113 mg/dL; Potassium 3.6 mmol/L (3.3-5.1); Triglycerides 71 mg/dL; Very Low Density Lipoprotein 14 mg/dL (5-40); cholesterol:hdl ratio screen 3.14
== END | disposition home or self-care (01) ==
LOC: CIMLAB 09:44
PROVIDERS: PCP Internal Medicine; Referring Provider Internal Medicine; Visit Provider Internal Medicine
DX: R73.01 Impaired fasting glucose (principal); E78.2 Mixed hyperlipidemia
CPT/HCPCS: 36415; 80053; 80061; 83036; 85025

== ENCOUNTER 2025-08-15 13:43 | Outpatient (CLI) | payer OTHER, SELFPAY ==
--- NOTE | 2025-08-15 13:47 | US_ITS ---
PROCEDURE: THYROID 08/15/2025 REASON FOR EXAM: THYROID TECHNIQUE: Procedure Code: USTHY Modality: US Procedure: THYROID COMPARISON: 07/16/2024 thyroid ultrasound FINDINGS: Right thyroid lobe size: 5.4 x 2.3 x 2.4 cm Left thyroid lobe size: 4.2 x 2.1 x 4.3 cm Isthmus: 0.4 cm Background parenchymal echotexture is heterogenous Nodules: 1. Lobe: Right, Location: Mid, Size: 1.1 x 1.0 x 1.0 cm, Stability: Stable Composition: Solid or almost completely solid (+2) Echogenicity: Hyper to Isoechoic (+1) Margin: Smooth (+0) Shape: Wider than tall (+0) Echogenic Foci: None (+0) TI-RADS: 3 2. Lobe: Right, Location: Lower, Size: 1.3 x 1.8 x 1.2 cm, Stability: Smaller Composition: Mixed cystic and solid (+1) Echogenicity: Very hypoechoic (+3) Margin: Smooth (+0) Shape: Wider than tall (+0) Echogenic Foci: None (+0) TI-RADS: 4 3. Lobe: Right, Location: Lower, Size: 1.4 x 1.5 x 0.8 cm, Stability: Smaller Composition: Solid or almost completely solid (+2) Echogenicity: Hypoechoic (+2) Margin: Smooth (+0) Shape: Wider than tall (+0) Echogenic Foci: None (+0) TI-RADS: 4 4. Lobe: Right, Location: Lower, Size: 1.3 x 1.4 x 0.7 cm, Stability: Stable Composition: Solid or almost completely solid (+2) Echogenicity: Hyper to Isoechoic (+1) Margin: Smooth (+0) Shape: Wider than tall (+0) Echogenic Foci: None (+0) TI-RADS: 3 5. Lobe: Left, Location: Mid, Size: 1.0 x 1.0 x 0.8 cm, Stability: Stable Composition: Solid or almost completely solid (+2) Echogenicity: Hypoechoic (+2) Margin: Smooth (+0) Shape: Wider than tall (+0) Echogenic Foci: None (+0) TI-RADS: 4 6. Lobe: Left, Location: Lower, Size: 0.5 x 0.5 x 0.4 cm, Stability: New Composition: Solid or almost completely solid (+2) Echogenicity: Hypoechoic (+2) Margin: Smooth (+0) Shape: Wider than tall (+0) Echogenic Foci: None (+0) TI-RADS: 4 US/Thyroid IMPRESSION: Multiple nodules as above. Thyroid nodule 2 and 3 are TR 4 and meet criteria f or fine-needle aspiration if not already performed. Additional nodule should be followed sonographically according to A CR guidelines. RECOMMENDATION: Based on most suspicious nodule. Nodule size = largest diameter Only evaluate nodule if =>5 mm. Growth > 20% in 2 dimensions = worsening. Follow up to 4 nodules. Recommend biopsy for no more than 2 nodules. Reading Location: [place]
--- NOTE | 2025-08-15 13:47 | CDU_ITS ---
Reason For Study Reason For Study: Carotid stenosis Rt. Velocities/BP Lt. Velocities/BP Prox CCA 65.5/18.2 cm/sec. Prox CCA 80.6/23 cm/sec. Mid CCA 69.2/17.3 cm/sec. Mid CCA 80.6/24.5 cm/sec. Dist CCA 89.1/28.6 cm/sec. Dist CCA 74/17.9 cm/sec. Prox ICA 57/18.2 cm/sec. Prox ICA 46.9/18.1 cm/sec. Mid ICA 71.1/33.3 cm/sec. Mid ICA 105.1/47.2 cm/sec. Dist ICA 78.7/36.2 cm/sec. Dist ICA 51.3/23 cm/sec. Rt. ICA/CCA = 1.14. Lt. ICA/CCA = 1.30. Prox ECA 64.5/9.7 cm/sec. Prox ECA 78.4/13.5 cm/sec. Rt. Vert. 43.7/18.2 cm/sec. Lt. Vert. 30.8/12.3 cm/sec. Right Extracranial There is intimal thickening but no significant atherosclerotic plaque noted in the right common carotid artery. There is heterogeneous, irregular atherosclerotic plaque noted in the right internal carotid artery. There is intimal thickening but no significant atherosclerotic plaque noted in the right external carotid artery. Antegrade flow is noted in the right vertebral artery. Left Extracranial There is intimal thickening but no significant atherosclerotic plaque noted in the left common carotid artery. There is intimal thickening but no significant atherosclerotic plaque noted in the left internal carotid artery. The left internal carotid artery is very tortuous. There is intimal thickening but no significant atherosclerotic plaque noted in the left external carotid artery. Antegrade flow is noted in the left vertebral artery. Procedure Carotid Duplex [id number]. This is a Carotid Duplex examination using B-mode, color flow and specral Doppler. Exam performed in department. VL/Carotid Duplex Ultrasound Interpretation Summary Mild (<50%) stenosis right extracranial internal carotid. No significant athero sclerotic plaque or stenosis noted in the left internal carotid artery. Flow within the vertebral arteries is antegrade b ilaterally. Ordering Physician: Marcelle Morales Referring Physician: Marcelle Morales Performed By: Lucinda Valdez RVT
== END 2025-08-15 23:59 | disposition home or self-care (01) ==
LOC: US 13:46
PROVIDERS: PCP Internal Medicine; Referring Provider Internal Medicine; Visit Provider Internal Medicine
DX: I65.23 Occlusion and stenosis of bilateral carotid arteries (principal); E04.2 Nontoxic multinodular goiter
CPT/HCPCS: 76536; 93880

== ENCOUNTER 2025-08-19 09:30 | Outpatient (RCR) | payer OTHER, SELFPAY | END 2025-08-20 23:59 | LOC: NS 09:30 | PROVIDERS: PCP Internal Medicine; Referring Provider Internal Medicine; Visit Provider Internal Medicine | DX: Z71.3 Dietary counseling and surveillance (principal); E66.9 Obesity, unspecified; Z68.34 Body mass index [BMI] 34.0-34.9, adult | CPT/HCPCS: 97803 ==